=== PATIENT | female | born 1945 | race Caucasian/White ===

== ENCOUNTER 2022-12-11 17:20 | Observation (INO) | payer MEDICARE, SELFPAY ==
[2022-12-11 17:21] VITALS: BP 137/83; PULSE 87; RESP 17; TEMP 36.4; O2SAT 98; BMI 32.8
--- NOTE | 2022-12-11 17:34 | PC.NURSE ---
DR GARCIA AT BEDSIDE TO EVALUATE PT
[2022-12-11 17:35] VITALS: BMI 32.8
--- NOTE | 2022-12-11 17:48 | HMH.EDGENADL ---
Discharge Plan Disposition Chief Complaint: Weakness Prescriptions Prescriptions: No Action pramipexole [Mirapex] 1 mg Tablet 1 mg PO HS lisinopril-hydrochlorothiazide 20-12.5 mg Tablet 1 tab PO DAILY meloxicam 15 mg Tablet 15 mg PO DAILY docusate sodium 100 mg Capsule 100 mg PO DAILY gabapentin 300 mg Capsule 300 mg PO DAILY pravastatin 20 mg Tablet 20 mg PO HS omeprazole 20 mg Tablet,Delayed Release (Dr/Ec) 20 mg PO DAILY Referrals Follow up/Referrals: Placido Mercado [Primary Care Provider] - See instructions Clinical Impressions Clinical Impression: Anemia, VIRIDIANA (acute kidney injury), Weakness Discharge ED Provider: Chester Pettit General Adult HPI General Chief complaint: Weakness Stated complaint: blood count low Time Seen by Provider: 12/11/22 17:50 Mode of Arrival: Wheelchair Limitations: No Limitations Description of Symptoms (Recalled from ER Triage Doc. by RN): PT REPORTS WEAKNESS, FATIGUE, DECREASED APPETITE, SHORTNESS OF BREATH THAT HAS INCREASED OVER SEVERAL WEEKS. PT WITH EDEMA TO BLE, LEFT MORE THAN RIGHT. FAMILY REPORTS CONFUSION History of Present Illness HPI narrative: Patient is a 77-year-old female with past medical history of spinal fusion with resultant persistent anemia who presents emergency department for evaluation of weakness. Patient also has a history of dropfoot and at baseline is ambulatory with a cane. Over the last 3 weeks patient has had worsening diffuse weakness. Recent CBC shows hemoglobin around 8. Her baseline is normal. This is being investigated by her PCP without definitive etiology identified. Patient has decreased p.o. intake, adequate urine output, afebrile throughout the course, no other acute complaints at this time. She is accompanied by her family who is concerned about her ambulatory status and blood counts. Related Data Home Medications Medication Instructions Recorded Confirmed docusate sodium 100 mg capsule 100 mg PO DAILY CONSTIPATION 12/11/22 12/11/22 gabapentin 300 mg capsule 300 mg PO DAILY RLS 12/11/22 12/11/22 lisinopril 20 1 tab PO DAILY High blood pressure 12/11/22 12/11/22 mg-hydrochlorothiazide 12.5 mg tablet meloxicam 15 mg tablet 15 mg PO DAILY Pain 12/11/22 12/11/22 omeprazole 20 mg tablet,delayed 20 mg PO DAILY Reflux/Acid reflux 12/11/22 12/11/22 release pramipexole 1 mg tablet (Mirapex) 1 mg PO HS RLS 12/11/22 12/11/22 pravastatin 20 mg tablet 20 mg PO HS Cholesterol 12/11/22 12/11/22 Allergies Allergy/AdvReac Type Severity Reaction Status Date / Time No Known Allergies Allergy Verified 12/11/22 17:35 [facility] Disclaimer: The information contained in this section may have been updated after the patient was seen, as this information can be updated by other users. Social History Smoking Status: Never smoker alcohol intake: never current occupational status: unemployed Travel in the last 8 weeks: None ROS Obtained: Yes Systems reviewed as appropriate & no additional complaints except as documented Physical Exam General General appearance: alert and in no apparent distress Head Head exam: atraumatic and normocephalic Eye Eye exam: Present PERRL and EOMI ENT ENT exam: Present mucous membranes moist Neck Neck exam: Present normal inspection Chest Chest inspection: Present normal inspection and symmetric chest wall rise Respiratory Respiratory exam: Present normal lung sounds bilaterally; Absent respiratory distress Cardiovascular Cardiovascular exam: Present regular rate and normal rhythm Abdominal Exam Abdominal exam: Present soft; Absent tenderness Extremities Exam Extremities exam: Present normal inspection Neurological Exam Neurological exam: Present alert, oriented X3 and CN II-XII intact; Absent motor sensory deficit Psychiatric Psychiatric exam: Present normal affect Skin Skin exam: Present warm and dry Medical Decision Making Wayne Inquiry
[2022-12-11 18:01] LABS: Chloride 99 mmol/L (98-107); Potassium 4.4 mmoL/L (3.5-5.1); Sodium 132 mmol/L (136-145)
--- NOTE | 2022-12-11 18:02 | PC.NURSE ---
PT ASSISTED TO BR
[2022-12-11 18:04] LABS: Alanine Aminotransferase 31 U/L (12-78); Albumin Level 3.9 g/dl (3.5-5.0); Albumin/Globulin Ratio 1.6 (1.1-1.8); Alkaline Phosphatase 101 U/L (38-126); Anion Gap 11.4 mEq/L (5-15); Aspartate Amino Transferase 26 U/L (14-36); Bilirubin,Total 0.2 mg/dl (0.2-1.3); Blood Urea Nitrogen 40 mg/dl (7-17); Carbon Dioxide 26 mmol/L (22.0-30.0); Creatinine Clearance Estimated 36 mL/min (50-200); Estimated Glomerular Filt Rate 27 ml/min (>60); GFR (African American) 33 ML/MIN (>60); Globulin 2.4 g/dL (1.3-3.2); Magnesium 2.1 mg/dl (1.6-2.3); Total Protein,Serum 6.3 g/dl (6.3-8.2)
[2022-12-11 18:05] LABS: Calcium 9.7 mg/dl (8.4-10.2); Glucose 110 mg/dl (74-100)
[2022-12-11 18:08] LABS: Basophils # 0.1 K/mm3 (0-0.2); Basophils % 0.7 % (0.1-2.0); Eosinophils # 0.5 K/mm3 (0.0-0.4); Eosinophils % 7.4 % (0.1-12.0); Hematocrit 24.6 % (37.0-47.0); Hemoglobin 7.4 g/dL (12.2-16.2); Lymphocytes # 1.4 K/mm3 (0.7-4.5); Lymphocytes % 21.7 % (10-50); Mean Corpuscular HGB Conc 30.3 g/dL (31.8-35.4); Mean Platelet Volume 6.9 fl (7.4-10.4); Monocytes # 0.5 K/mm3 (0.1-1.0); Monocytes % 7.2 % (1.7-9.3); Neutrophils # 4.1 K/mm3 (1.8-7.8); Platelet Count 821 K/mm3 (142-424); Red Blood Count 3.23 M/mm3 (4.20-5.40); Red Cell Distribution Width 17.7 % (11.5-17.5); Reticulocyte % (Auto) 3.5 % (0.9-3.2); White Blood Count 6.5 K/mm3 (4.8-10.8)
[2022-12-11 18:13] LABS: Microscopic, Urine URINE MICROSCOPIC (MICROSCOPIC)
[2022-12-11 18:16] LABS: Appearance,Urine CLEAR (Clear); Bilirubin,Urine Negative (Negative); Blood, Urine Negative (Negative); Color,Urine YELLOW (Yellow); Glucose,Urine (UA) Negative (Negative); Ketones,Urine Negative (Negative); Leukocyte Esterase,Urine TRACE (Negative); Nitrate,Urine Negative (Negative); PH,Urine 5.5 (5.0-8.5); Protein,Urine Negative (Negative); Urobilinogen,Urine 0.2 EU/dl (0.2)
[2022-12-11 18:21] LABS: T4 (Thyroxine) 8.6 ug/dl (5.53-11.0)
--- NOTE | 2022-12-11 18:24 | PC.NURSE ---
DR GARCIA AT BEDSIDE TO REEVALUATE PT AND DISCUSS POC WITH PT AND FAMILY
[2022-12-11 18:31] VITALS: BP 128/83; PULSE 86; RESP 20; O2SAT 98
--- NOTE | 2022-12-11 18:31 | ECG_ITS ---
APPROVED REPORT Exam: Resting ECG HR:83 bpm ECG Measurements Heart Rate 83 AXES DE 119 P 9 QRSd 93 QRS 52 QT 362 T 24 QTc 402 Conclusion SINUS RHYTHM WITH SHORT DE INTERVAL BORDERLINE ECG UNCONFIRMED REPORT Electronically signed by : Mikhail Person MD 12/12/2022 20:23:05
[2022-12-11 18:37] LABS: Bacteria,Urine Trace /lpf
[2022-12-11 19:00] VITALS: BP 141/76; PULSE 84; RESP 17; O2SAT 99
[2022-12-11 19:29] VITALS: BP 135/89; PULSE 80; RESP 16; O2SAT 98
--- NOTE | 2022-12-11 19:29 | PC.NURSE ---
Admissions contacted at this for admission, Pt assigned to room 213.
[2022-12-11 19:36] LABS: Coronavirus 19, PCR Not Detected (NotDetected); Influenza A, PCR Not Detected (NotDetected); Influenza B, PCR Not Detected (NotDetected)
--- NOTE | 2022-12-11 19:46 | PC.NURSE ---
Report to ANN Garcia
[2022-12-11 19:56] VITALS: BP 139/76; PULSE 79; RESP 17; TEMP 36.9; O2SAT 97
[2022-12-11 20:00] VITALS: BP 138/81; PULSE 82; RESP 18; TEMP 36.4; O2SAT 97; BMI 32.6
[2022-12-11 20:36] LABS: Iron 36 ug/dL (37-170)
[2022-12-11 20:41] LABS: Total Iron Binding Capacity 456 ug/dL (265-497)
[2022-12-11 20:50] LABS: Ferritin 10.9 ng/ml (11.1-264)
--- NOTE | 2022-12-11 21:02 | EXP.HP ---
History of Present Illness *Admission Date: 12/11/22 *Reason for visit:: Generalized weakness *History of present illness: This is a pleasant 77-year-old female with past medical history of hypertension, hyperlipidemia who presents emergency department today with complaints of generalized weakness and frequent falls. She reports over the past month or so she has had worsening generalized weakness and lightheadedness. She has recently seen her primary care provider who noted microcytic anemia on lab work on 12/02/2022 With a hemoglobin of 8.1. At that time she was started on oral iron. She reports worsening lightheadedness over the past several days. She reports last fall was approximately 3 weeks ago but denies loss of consciousness at that time. She denies any fever, cough, chest pain, shortness of breath. She denies any hematochezia, hematemesis or melena or BRBPR. 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 She also reports recent back surgery in May and at that time it was noted that her blood counts were normal. Lab valuation notable for hemoglobin of 7.5. VIRIDIANA noted with a creatinine of 1.8. Given patient's continued generalized weakness, VIRIDIANA will admit for IV hydration. She is admitted to hospital service for further evaluation management. [facility] Disclaimer: The information contained in this section may have been updated after the patient was seen, as this information can be updated by other users. Medical History Cataract Hemorrhoid History of anemia History of back pain History of gastroesophageal reflux (GERD) Hyperlipidemia Hypertension Osteoarthritis Surgical History (Updated 12/11/22 @ 20:32 by Deborah Robles RN) History of colonoscopy Family History (Updated 12/11/22 @ 20:34 by Deborah Robles RN) Other Family history of diabetes mellitus type II Family history of hyperlipidemia Family history of hypertension Family history of leukemia Social History (Updated 12/11/22 @ 20:35 by Deborah Robles RN) Smoking Status: Never smoker alcohol intake: never substance use type: denies use current occupational status: unemployed Travel in the last 8 weeks: None household members: children housing: house lives independently: No marital status: well-balanced diet: daily or most days physical activity: none Review of Systems Review of Systems Review of systems:: pertinent systems reviewed and negative unless documented below Constitutional Constitutional: Reports as per HPI Eyes Eyes: Reports as per HPI ENT Ears, Nose, Mouth, and Throat: Reports as per HPI *Cardiovascular Cardiovascular: Reports as per HPI *Respiratory Respiratory: Reports as per HPI *Gastrointestinal Gastrointestinal: Reports as per HPI *Genitourinary Genitourinary: Reports as per HPI *Musculoskeletal Musculoskeletal: Reports as per HPI *Neurologic Neurologic: Reports as per HPI Meds Home Medications and Allergies Home Medications Medication Instructions Recorded Confirmed Type docusate sodium 100 mg capsule 100 mg PO DAILY CONSTIPATION 12/11/22 12/11/22 History gabapentin 300 mg capsule 300 mg PO BID Restless leg syndrome 12/11/22 12/12/22 History lisinopril 20 1 tab PO DAILY High blood pressure 12/11/22 12/11/22 History mg-hydrochlorothiazide 12.5 mg tablet meloxicam 15 mg tablet 15 mg PO DAILY Pain 12/11/22 12/11/22 History pramipexole 1 mg tablet (Mirapex) 1 mg PO HS RLS 12/11/22 12/11/22 History carbidopa 10 mg-levodopa 100 mg 1 tab PO HS Parkinson's 12/12/22 12/12/22 History tablet omeprazole 40 mg capsule,delayed 40 mg PO BID Acid reflux 12/12/22 12/12/22 History release pravastatin 40 mg tablet 40 mg PO HS Cholesterol 12/12/22 12/12/22 History terbinafine HCl 250 mg tablet 250 mg PO DAILY Infection 12/12/22 12/12/22 History New Prescriptions to Start Prescriptions:
[2022-12-11 21:22] LABS: Vitamin B12 > 1000 pg/mL (239-931)
[2022-12-12 04:00] VITALS: BP 130/68; PULSE 81; RESP 17; TEMP 36.8; O2SAT 98; BMI 33.3
--- NOTE | 2022-12-12 05:53 | PC.NURSE ---
pt rested well through the night. room air. receiving iv fluids. no complaints of pain. daughter @ bedside.
[2022-12-12 06:20] LABS: Basophils # 0.1 K/mm3 (0-0.2); Basophils % 1.1 % (0.1-2.0); Eosinophils # 0.5 K/mm3 (0.0-0.4); Eosinophils % 9.3 % (0.1-12.0); Hematocrit 23.6 % (37.0-47.0); Hemoglobin 7.3 g/dL (12.2-16.2); Lymphocytes # 1.4 K/mm3 (0.7-4.5); Lymphocytes % 25.3 % (10-50); Mean Corpuscular HGB Conc 30.9 g/dL (31.8-35.4); Mean Corpuscular Hemoglobin 23.1 pg (27.0-31.2); Mean Corpuscular Volume 74.8 fl (81-99); Mean Platelet Volume 7.1 fl (7.4-10.4); Monocytes # 0.4 K/mm3 (0.1-1.0); Monocytes % 6.5 % (1.7-9.3); Neutrophils # 3.1 K/mm3 (1.8-7.8); Neutrophils % 57.8 % (37.0-80.0); Platelet Count 812 K/mm3 (142-424); Red Blood Count 3.16 M/mm3 (4.20-5.40); Red Cell Distribution Width 17.7 % (11.5-17.5); White Blood Count 5.4 K/mm3 (4.8-10.8)
[2022-12-12 06:35] LABS: Chloride 103 mmol/L (98-107); Potassium 3.9 mmoL/L (3.5-5.1); Sodium 136 mmol/L (136-145)
[2022-12-12 06:38] LABS: Blood Urea Nitrogen 32 mg/dl (7-17); Creatinine Clearance Estimated 50 mL/min (50-200); Estimated Glomerular Filt Rate 40 ml/min (>60); GFR (African American) 48 ML/MIN (>60)
[2022-12-12 06:39] LABS: Anion Gap 9.9 mEq/L (5-15); Calcium 9.3 mg/dl (8.4-10.2); Carbon Dioxide 27 mmol/L (22.0-30.0); Glucose 95 mg/dl (74-100)
--- NOTE | 2022-12-12 07:39 | HMH.PHAINT1 ---
Pharmacy Intervention Comments: Reconciled patient's home medications using patient interview and pharmacy fill history.
[2022-12-12 08:00] VITALS: BP 107/64; PULSE 86; RESP 18; TEMP 36.9; O2SAT 94
--- NOTE | 2022-12-12 08:32 | EXP.PN ---
Subjective *Date: 12/12/22 *Time: 09:51 Interval history: Hgb is 7.3 this AM. Cr is decreasing 1.8 -> 1.3 No acute events overnight. She continues to feel weak and continues to have exertional dyspnea. No chest pain. Exam Data for Last 24 hours Vital signs and Labs for Last 24 Hours: Temp Pulse Resp BP Pulse Ox 98.4 F 86 18 107/64 L 94 L 12/12/22 08:00 12/12/22 08:00 12/12/22 08:00 12/12/22 08:00 12/12/22 08:00 Laboratory Results - last 24 hr 12/11/22 17:31: WBC 6.5, RBC 3.23 L, Hgb 7.4 L, Hct 24.6 L, MCV 76.0 L, MCH 23.0 L, MCHC 30.3 L, RDW 17.7 H, Plt Count 821 H, MPV 6.9 L, Neut % (Auto) 63.0, Lymph % (Auto) 21.7, [place] % (Auto) 7.2, Eos % (Auto) 7.4, Baso % (Auto) 0.7, Neut # (Auto) 4.1, Lymph # (Auto) 1.4, [place] # (Auto) 0.5, Eos # (Auto) 0.5 H, Baso # (Auto) 0.1, Retic Count (auto) 3.5 H 12/11/22 17:31: Sodium 132 L, Potassium 4.4, Chloride 99, Carbon Dioxide 26, Anion Gap 11.4, BUN 40 H, Creatinine 1.80 H, Estimated Creat Clear 36, Estimated GFR 27 L, Est GFR ( Amer) 33 L, Glucose 110 H, Calcium 9.7, Total Bilirubin 0.2, AST 26, ALT 31, Alkaline Phosphatase 101, Total Protein 6.3, Albumin 3.9, Globulin 2.4, Albumin/Globulin Ratio 1.6, Thyroxine (T4) 8.6 12/11/22 17:31: Magnesium 2.1 12/11/22 17:31: Iron 36 L, TIBC 456, Iron Saturation 7.04967 L, Ferritin 10.9 L, Vitamin B12 > 1000 H, Folate 11.50 12/11/22 18:10: Urine Color Yellow, Urine Appearance Clear, Urine pH 5.5, Ur Specific [place] 1.010, Urine Protein Negative, Urine Glucose (UA) Negative, Urine Ketones Negative, Urine Blood Negative, Urine Nitrate Negative, Urine Bilirubin Negative, Urine Urobilinogen 0.2, Ur Leukocyte Esterase Trace, Urine RBC None, Urine WBC 5-10, Ur Squamous Epith Cells 3-5, Urine Bacteria Trace 12/11/22 19:30: SARS-CoV-2 (PCR) Not detected, Influenza A Untype (PCR) Not detected, Influenza Type B (PCR) Not detected 12/12/22 05:57: WBC 5.4, RBC 3.16 L, Hgb 7.3 L, Hct 23.6 L, MCV 74.8 L, MCH 23.1 L, MCHC 30.9 L, RDW 17.7 H, Plt Count 812 H, MPV 7.1 L, Neut % (Auto) 57.8, Lymph % (Auto) 25.3, [place] % (Auto) 6.5, Eos % (Auto) 9.3, Baso % (Auto) 1.1, Neut # (Auto) 3.1, Lymph # (Auto) 1.4, [place] # (Auto) 0.4, Eos # (Auto) 0.5 H, Baso # (Auto) 0.1 12/12/22 05:57: Sodium 136, Potassium 3.9, Chloride 103, Carbon Dioxide 27, Anion Gap 9.9, BUN 32 H, Creatinine 1.30 H D, Estimated Creat Clear 50, Estimated GFR 40 L, Est GFR ( Amer) 48 L D, Glucose 95, Calcium 9.3 I & O for Last 24 hours: Intake & Output 12/09/22 12/10/22 12/11/22 12/12/22 23:59 23:59 23:59 23:59 Intake Total 1000 / 1500 740 / 740 Output Total 100 / 400 300 / 300 Balance 900 / 1100 440 / 440 Weight 83.546 kg 85.417 kg Constitutional Constitutional: no acute distress *Routine HEENT Exam Head: Present normocephalic Eye: Present EOMI and PERRL ENT: Present mucous membranes moist *Routine Neck Exam Neck: Present supple; Absent lymphadenopathy *Routine Respiratory Exam Respiratory: Present CTA bilaterally *Routine Cardiovascular Exam Cardiovascular: Present RRR *Routine Abdominal Exam Abdominal: Present soft and normoactive bowel sounds; Absent tenderness *Routine Extremities Exam Extremities: Absent cyanosis, clubbing or edema *Routine Skin Exam Skin: Present warm; Absent rash *Routine Neurological Exam Neurological: Present alert and oriented X3 Assessment and Plan *Assessment and plan (1) Acute blood loss anemia: Status: Acute Category: Medical Code(s): D62 - Acute posthemorrhagic anemia (2) Frequent falls: Status: Acute Category: Medical Code(s): R29.6 - Repeated falls (3) Microcytic anemia: Status: Acute Category: Medical Code(s): D50.9 - Iron deficiency anemia, unspecified (4) VIRIDIANA (acute kidney injury): Status: Acute Category: Medical Code(s): N17.9 - Acute kidney failure, unspecified (5) Weakness: Status: Acute Category: Medical Code(s): R53.
--- NOTE | 2022-12-12 08:50 | EXP.SURG.CON ---
History of Present Illness *Admission Date: 12/11/22 *Reason for visit:: Symptomatic anemia *History of present illness: Patient is a 77-year-old from [facility] whose primary care provider is Angelito Mercado. She has no prior visits to this facility. She presented to the emergency department yesterday evening with generalized weakness and frequent falls. She had apparently recently seen her primary care care provider and had findings of microcytic anemia noted on lab work on 12/02/2022 with a hemoglobin of 8.1. She was started on oral iron supplementation. Patient has had some progressive dizziness and lightheadedness over several days. She had a fall approximately 3 weeks ago. Denies any symptoms consistent with hematochezia, hematemesis, or melena. Apparently patient had back surgery in May 2022 and at that time had normal hemoglobin. However, she did undergo autotransfusion of packed red blood cells due to blood loss. Evaluation in the emergency department revealed hemoglobin of 7.5. Initial BUN and creatinine were 40 and 1.8. Surgical consultation was obtained for acute anemia . She has never had any history of ulcer problems. She does state that several weeks ago she had been taking ibuprofen for back and leg pain. She has had 2 or 3 colonoscopies in the past but the last one was about 11 years ago according to the patient. Patient had a regular diet this morning. [facility] Disclaimer: The information contained in this section may have been updated after the patient was seen, as this information can be updated by other users. Medical History Cataract Hemorrhoid History of anemia History of back pain History of gastroesophageal reflux (GERD) Hyperlipidemia Hypertension Osteoarthritis Surgical History (Updated 12/11/22 @ 20:32 by Deborah Robles RN) History of colonoscopy Family History (Updated 12/11/22 @ 20:34 by Deborah Robles RN) Family history of leukemia Family history of hypertension Family history of diabetes mellitus type II Family history of hyperlipidemia Social History (Updated 12/11/22 @ 20:35 by Deborah Robles, ANN) Smoking Status: Never smoker alcohol intake: never substance use type: denies use current occupational status: unemployed Travel in the last 8 weeks: None household members: children housing: house lives independently: No marital status: well-balanced diet: daily or most days physical activity: none Review of Systems *Neurologic Neurologic: Reports as per [facility] Meds Home Medications and Allergies Home Medications Medication Instructions Recorded Confirmed Type gabapentin 300 mg capsule 300 mg PO BID Restless leg syndrome 12/11/22 12/12/22 History lisinopril 20 1 tab PO DAILY High blood pressure 12/11/22 12/11/22 History mg-hydrochlorothiazide 12.5 mg tablet meloxicam 15 mg tablet 15 mg PO DAILY Pain 12/11/22 12/11/22 History pramipexole 1 mg tablet (Mirapex) 1 mg PO HS restless leg syndrome 12/11/22 12/11/22 History carbidopa 10 mg-levodopa 100 mg 1 tab PO HS Parkinson's 12/12/22 12/12/22 History tablet omeprazole 40 mg capsule,delayed 40 mg PO BID Acid reflux 12/12/22 12/12/22 History release pravastatin 40 mg tablet 40 mg PO HS Cholesterol 12/12/22 12/12/22 History New Prescriptions to Start Prescriptions: Allergies Allergy/AdvReac Type Severity Reaction Status Date / Time No Known Allergies Allergy Verified 12/11/22 17:35 Exam (Inpt) Vital signs and Labs for Last 24 Hours: Temp Pulse Resp BP Pulse Ox 98.4 F 86 18 107/64 L 94 L 12/12/22 08:00 12/12/22 08:00 12/12/22 08:00 12/12/22 08:00 12/12/22 08:00 Laboratory Results - last 24 hr 12/11/22 17:31: WBC 6.5, RBC 3.23 L, Hgb 7.4 L, Hct 24.6 L, MCV 76.0 L, MCH 23.0 L, MCHC 30.3 L, RDW 17.7 H, Plt Count 821 H, MPV 6.9 L, Neut % (Auto) 63.0, Lymph % (Auto) 21.7, [place]
[2022-12-12 10:58] VITALS: BMI 33.3
--- NOTE | 2022-12-12 12:35 | HMH.PTEV ---
Physical Therapy Evaluation Rehab PT IP Evaluation Start: 12/11/22 19:56 Freq: ONCE Status: Active Protocol: Document 12/12/22 12:17 DAMIÁNTIFFANY (Rec: 12/12/22 12:35 LIVIER [id number]) Subjective/History History History Pt is a pleasant 77 year old female with a PMH significant for HTN and HLD that presented to the ED on 12/11/2022 with reports of generalized weakness and frequent falls. Pt reported that over the past month, she has experienced lightheadedness and increasing weakness. Pt was started on oral iron by her PCP on 2022 due to microcytic anemia. While in ED, lab values significant for hemoglobin of 7.5 and creatinine of 1.8 indicating VIRIDIANA. Pt was admitted to hospital for further evaluation. Subjective Subjective Pt presents supine in bed with family at bedside, pleasant and agreeable to PT initial evaluation. Pt denies reports of pain at rest. Pt reports she lives at home with her son in a H with ramp to enter. Pt reports that she uses a cane for in home/daytime ambulation and a rollator at night and when outside the home. Pt states that her grandchildren will be coming to stay with her at the time of discharge. Rehab PT IP Eval Objective Appearance Patient Behavior Appropriate Patient Orientation Person,Place,Time,Situation Difficulty following instructions none Speech Pattern Clear,Appropriate Ambulation Patient Able to Ambulate Yes Ambulation Observation IP General Gait Pattern Observation No Deviations/Normal Ambulation Distance (feet) 30 Ambulation Assistive Device Rolling Walker Ambulation Ability Independent Balance Ability to Arise Able, w/o using arms Sitting Balance Steady, safe Standing Balance Steady, wide stance Dynamic Sitting Balance Ability Normal Dynamic Standing Balance Ability Normal Transfers Bed Transfer Abili
[2022-12-12 13:53] LABS: Occult Blood,Stool Positive (Negative)
--- NOTE | 2022-12-12 15:34 | PC.NURSE ---
A&OX4. TOLERATING RA WELL. UP INDEPENDENTLY IN ROOM WITH USE OF WALKER. FAMILY AT BEDSIDE. PT HAS HAD NO NEEDS OR C/O THUS FAR THIS SHIFT. OCCULT STOOL OBTAINED. PT TOLERATING DIET, WILL BE NPO AT MIDNIGHT FOR EDG IN AM. VSS.
[2022-12-12 16:00] VITALS: BP 157/77; PULSE 83; RESP 18; TEMP 36.9
[2022-12-12 20:00] VITALS: BP 121/71; PULSE 91; RESP 17; TEMP 36.8; O2SAT 99
[2022-12-13] VITALS (28 sets, daily range): BP systolic 91–154; BP diastolic 54–98; PULSE 72–96; RESP 16–19; TEMP 36.4–37; O2SAT 92–100; BMI 33.3
[2022-12-13 06:24] LABS: Basophils % 0.6 % (0.1-2.0); Eosinophils # 0.4 K/mm3 (0.0-0.4); Eosinophils % 7.7 % (0.1-12.0); Hematocrit 22.2 % (37.0-47.0); Lymphocytes # 1.3 K/mm3 (0.7-4.5); Lymphocytes % 25.3 % (10-50); Mean Corpuscular HGB Conc 30.3 g/dL (31.8-35.4); Mean Corpuscular Hemoglobin 23.1 pg (27.0-31.2); Mean Corpuscular Volume 76.2 fl (81-99); Mean Platelet Volume 7.4 fl (7.4-10.4); Monocytes # 0.3 K/mm3 (0.1-1.0); Monocytes % 5.6 % (1.7-9.3); Neutrophils # 3.2 K/mm3 (1.8-7.8); Neutrophils % 60.8 % (37.0-80.0); Platelet Count 704 K/mm3 (142-424); Red Blood Count 2.92 M/mm3 (4.20-5.40); Red Cell Distribution Width 18.2 % (11.5-17.5); White Blood Count 5.3 K/mm3 (4.8-10.8)
[2022-12-13 06:31] LABS: Hemoglobin 6.7 g/dL (12.2-16.2)
--- NOTE | 2022-12-13 06:32 | PC.NURSE ---
Critical HGB 6.7 called to Diana Fishman APRN, patient to receive one unit PRBCs, awaiting orders, and lab work.
[2022-12-13 06:36] LABS: Chloride 108 mmol/L (98-107)
[2022-12-13 06:37] LABS: Potassium 4.3 mmoL/L (3.5-5.1); Sodium 138 mmol/L (136-145)
[2022-12-13 06:39] LABS: Blood Urea Nitrogen 21 mg/dl (7-17); Creatinine Clearance Estimated 60 mL/min (50-200); Estimated Glomerular Filt Rate 48 ml/min (>60); GFR (African American) 59 ML/MIN (>60)
[2022-12-13 06:40] LABS: Anion Gap 9.3 mEq/L (5-15); Calcium 9.3 mg/dl (8.4-10.2); Carbon Dioxide 25 mmol/L (22.0-30.0); Glucose 86 mg/dl (74-100)
--- NOTE | 2022-12-13 07:24 | P.PN_ITS ---
Subjective Patient reports: no new complaints Exam Data for Last 24 hours Vital signs and Labs for Last 24 Hours: Temp Pulse Resp BP Pulse Ox 98.3 F 96 H 17 120/87 94 L 12/13/22 04:00 12/13/22 04:00 12/13/22 04:00 12/13/22 04:00 12/13/22 04:00 Laboratory Results - last 24 hr 12/12/22 12:20: Stool Occult Blood Positive A 12/13/22 05:47: WBC 5.3, RBC 2.92 L, Hgb 6.7 L*, Hct 22.2 L, MCV 76.2 L, MCH 23.1 L, MCHC 30.3 L, RDW 18.2 H, Plt Count 704 H, MPV 7.4, Neut % (Auto) 60.8, Lymph % (Auto) 25.3, [place] % (Auto) 5.6, Eos % (Auto) 7.7, Baso % (Auto) 0.6, Neut # (Auto) 3.2, Lymph # (Auto) 1.3, [place] # (Auto) 0.3, Eos # (Auto) 0.4, Baso # (Auto) 0.0 12/13/22 05:47: Sodium 138, Potassium 4.3, Chloride 108 H, Carbon Dioxide 25, Anion Gap 9.3, BUN 21 H D, Creatinine 1.10 H, Estimated Creat Clear 60, Estimated GFR 48 L, Est GFR ( Amer) 59 D, Glucose 86, Calcium 9.3 12/13/22 06:47: Crossmatch (AHG) See Detail I & O for Last 24 hours: Intake & Output 12/10/22 12/11/22 12/12/22 12/13/22 11:59 11:59 11:59 11:59 Intake Total 1740 / 1740 1080 / 1080 Output Total 700 / 700 1100 / 1100 Balance 1040 / 1040 -20 / -20 Weight 188 lb 4.749 oz 188 lb 4.749 oz *Routine Abdominal Exam Abdominal: Present soft Progress Note: A&P Assessment and plan (1) Acute blood loss anemia: Status: Acute Assessment and plan: Hemoglobin is 6.7. Plan for EGD today. Stool for Hemoccult positive. (2) Frequent falls: Status: Acute (3) Microcytic anemia: Status: Acute (4) VIRIDIANA (acute kidney injury): Status: Acute (5) Weakness: Status: Acute
--- NOTE | 2022-12-13 09:23 | EXP.ACUTE.PN ---
Subjective *Date: 12/13/22 *Time: 09:23 Interval history: Doing well. Plan for EGD today. Having some weakness from anemia Medical Exam Vital signs and Labs for Last 24 Hours: Vital Signs Temp Pulse Pulse Resp BP BP Pulse Ox 12/13/22 09:15 97.9 F 78 17 137/84 96 12/13/22 09:10 76 17 132/80 97 12/13/22 09:05 97.9 F 75 18 135/77 96 12/13/22 09:00 98.0 F 76 17 138/88 97 12/13/22 08:52 98.0 F 78 17 132/88 97 12/13/22 08:00 98 F 80 19 140/77 97 12/13/22 04:00 98.3 F 96 H 17 120/87 94 L 12/13/22 00:00 97.7 F 90 17 147/80 H 95 12/12/22 20:00 98.3 F 91 H 17 121/71 99 12/12/22 16:00 98.5 F 83 18 157/77 H Intake and Output 12/12/22 12/13/22 12/13/22 23:59 07:59 15:59 Intake Total 360 / 1820 0 / 0 Output Total 400 / 1200 700 / 700 Balance -40 / 620 -700 / -700 0 / -700 Intake: Intake, Oral Amount 360 / 1520 Intake (Blood Product) Amt 0 / 0 Red Blood Cells Unit 0 / 0 [id number] Output: Output, Urine Amount 400 / 1200 700 / 700 Other: Number of Unmeasured Voids 1 1 Weight 85.41 kg Patient Weight 12/13/22 23:59 Weight 85.41 kg Laboratory Results - last 24 hr 12/12/22 12:20: Stool Occult Blood Positive A 12/13/22 05:47: WBC 5.3, RBC 2.92 L, Hgb 6.7 L*, Hct 22.2 L, MCV 76.2 L, MCH 23.1 L, MCHC 30.3 L, RDW 18.2 H, Plt Count 704 H, MPV 7.4, Neut % (Auto) 60.8, Lymph % (Auto) 25.3, [place] % (Auto) 5.6, Eos % (Auto) 7.7, Baso % (Auto) 0.6, Neut # (Auto) 3.2, Lymph # (Auto) 1.3, [place] # (Auto) 0.3, Eos # (Auto) 0.4, Baso # (Auto) 0.0 12/13/22 05:47: Sodium 138, Potassium 4.3, Chloride 108 H, Carbon Dioxide 25, Anion Gap 9.3, BUN 21 H D, Creatinine 1.10 H, Estimated Creat Clear 60, Estimated GFR 48 L, Est GFR ( Amer) 59 D, Glucose 86, Calcium 9.3 12/13/22 05:47: Blood Type Confirm A Positive 12/13/22 06:47: Blood Type A Positive, Antibody Screen Negative, Crossmatch (AHG) See Detail I & O for Labs for Last 24 Hours: Intake & Output 12/10/22 12/11/22 12/12/22 12/13/22 23:59 23:59 23:59 23:59 Intake Total 1000 / 1500 1820 / 1820 0 / 0 Output Total 100 / 400 1000 / 1200 700 / 700 Balance 900 / 1100 820 / 620 -700 / -700 Weight 83.546 kg 85.41 kg 85.41 kg Constitutional: Present no acute distress Respiratory: Present normal respiratory effort Cardiac: Present Reg Rate and Rhythm GI: Present normal bowel sounds; Absent tenderness Extremities: Present normal inspection and full ROM Skin: Present intact; Absent erythema Neuro: Present Grossly Intact and moves all extremities Assessment and Plan *Assessment and plan (1) Acute blood loss anemia: Status: Acute Category: Medical Code(s): D62 - Acute posthemorrhagic anemia (2) Frequent falls: Status: Acute Category: Medical Code(s): R29.6 - Repeated falls (3) Microcytic anemia: Status: Acute Category: Medical Code(s): D50.9 - Iron deficiency anemia, unspecified (4) Anemia: Status: Acute Category: Medical Code(s): D64.9 - Anemia, unspecified (5) VIRIDIANA (acute kidney injury): Status: Acute Category: Medical Code(s): N17.9 - Acute kidney failure, unspecified (6) GIB (gastrointestinal bleeding): Status: Acute Category: Medical Code(s): K92.2 - Gastrointestinal hemorrhage, unspecified Plan Gladys Grajeda is a 77 year old female with a past medical history of hypertension, hyperlipidemia and GERD who presented with generalized weakness and frequent falls. She was admitted on 12/11 with VIRIDIANA (Cr was 1.8) and microcytic anemia (hgb was 7.5, 8.1 in 12/02/2022 and patient reports it was normal this past May). She received a 1 L fluid bolus in the ED followed by maintenance fluids. Patient noted to have melena positive stool occult. To medic anemia at 6.7 this morning. We will give 1 unit of blood transfusion. General surgery consul
[2022-12-13 11:13] LABS: Transferrin 365 mg/dL (192-364)
--- NOTE | 2022-12-13 11:51 | EXP.ANES.CKL ---
[facility] Disclaimer: The information contained in this section may have been updated after the patient was seen, as this information can be updated by other users. Medical History Cataract Hemorrhoid History of anemia History of back pain History of gastroesophageal reflux (GERD) Hyperlipidemia Hypertension Osteoarthritis Surgical History History of colonoscopy Family History Other Family history of diabetes mellitus type II Family history of hyperlipidemia Family history of hypertension Family history of leukemia Social History Smoking Status: Never smoker alcohol intake: never substance use type: denies use current occupational status: unemployed Travel in the last 8 weeks: None household members: children housing: house lives independently: No marital status: well-balanced diet: daily or most days physical activity: none [facility] Anesthesia Checklist Patient Identification Patient Identification: Arm Band Structural Data Admitted From: Inpatient Planned Operative Procedure/s: EGD Consent for Planned Operative Procedure(s) Verified: Yes NPO Status Verified Time NPO: 00:00 Chart Verification Results Verified: CBC Airway Assessment C-Spine Mobility Assessed: Yes TMJ Mobility Assessed: Yes Dentition: Partials Neurological Assessment Level of Consciousness: Awake Hx Seizures: No Numbness or tingling in extremities: No Anesthesia Plan Anesthesia Risk discussed: Yes Anesthesia Plan: Verified ASA Class: III (III E) Anesthesia Type: MAC
--- NOTE | 2022-12-13 12:24 | HMH.SCOPE ---
Procedure: Date: 12/13/22 Patient Date of :: 1945 Procedure Performed:: Esophagogastroduodenoscopy with biopsy Indications:: Patient is a 77-year-old from [facility] whose primary care provider is Angelito Mercado.? She has no prior visits to this facility.? She presented to the emergency department with generalized weakness and frequent falls.? She had apparently recently seen her primary care care provider and had findings of microcytic anemia noted on lab work on 12/02/2022 with a hemoglobin of 8.1.? She was started on oral iron supplementation.? Patient has had some progressive dizziness and lightheadedness over several days.? She had a fall approximately 3 weeks ago.? Denies any symptoms consistent with hematochezia, hematemesis, or melena.? Apparently patient had back surgery in May 2022 and at that time had normal hemoglobin.? However, she did undergo autotransfusion of packed red blood cells due to blood loss.? Evaluation in the emergency department revealed hemoglobin of 7.4.? Initial BUN and creatinine were 40 and 1.8.? Surgical consultation was obtained for acute anemia .? She has never had any history of ulcer problems.? She does state that several weeks ago she had been taking ibuprofen for back and leg pain.? She has had 2 or 3 colonoscopies in the past but the last one was about 11 years ago according to the patient.? She had been admitted for inpatient management. As stated above, initial hemoglobin was 7.4 upon evaluation in the emergency department. Following morning on 12/12/22 hemoglobin was 7.3. She was seen as a surgical consultation and plan was made for upper endoscopy. She did have Hemoccult positive stool. Hemoglobin this morning on 12/13/2022 was 6.7. She was transfused a single unit of packed red blood cells. Follow-up hemoglobin is pending. Performing Provider:: Devon Hinton MD Referring Provider:: Angelito Mercado MD Sedation:: MAC sedation Procedure:: Patient was taken to endoscopy procedure room. She was positioned in lateral decubitus position. Adequate intravenous sedation was achieved with anesthesia titration of propofol. Olympus endoscope was inserted via the oropharynx. Esophagus was cannulated. Endoscope was advanced. She had findings consistent with cricopharyngeal spasm. She had findings consistent with dysmotility of the esophagus. Gastroesophageal junction was encountered at 30 cm from the incisors. There were findings consistent with moderately large sliding hiatal hernia. There were findings consistent with shallow Rojas's erosions. Stomach was cannulated and insufflated. Retroflexion was performed. Visualization of the fundus and hiatal hernia was somewhat difficult with limited gastric expansion likely due to large hiatal hernia and inability to retain gas within the gastric lumen. The antrum appeared relatively unremarkable with only minimal linear gastropathy. Pylorus was traversed. Duodenal bulb and duodenal sweep were unremarkable. Endoscope was withdrawn into the gastric lumen and gastric antral mucosal biopsies obtained for LEXA test for H. pylori. Stomach was desufflated and the endoscope was withdrawn. Findings:: Cricopharyngeal spasm Esophageal dysmotility Gastroesophageal junction at 30 cm Findings of probable moderately large sliding hiatal hernia Nonbleeding shallow Rojas's erosions Difficult visualization of proximal stomach/fundus due to lack of gastric distention Mild antral linear gastropathy Recommendations:: Potential contribution for anemia from the Rojas's erosions from her hiatal hernia. Although these seem to rather shallow and relatively inconsequential. Recommend continuation proton pump inhibitors. May benefit from early outpatient colonoscopy. May need hematology oncology evaluation. Complications:: None immediately apparent Estimated blood obtained (mL): 1
[2022-12-13 13:22] LABS: Hematocrit 26.1 % (37.0-47.0)
--- NOTE | 2022-12-13 19:42 | PC.NURSE ---
A&OX4. TOLERATING RA WELL. HAS TOLERATED BLOOD AND ALL PROCEDURES TODAY. FAMILY REMAINS AT BEDSIDE. PT AMBULATING WITH WALKER IN ROOM. HAS HAD X1 DIARRHEA TODAY. TOLERATING DIET WELL. NO OTHER NEEDS NOTED AT THIS TIME, VSS.
[2022-12-14] VITALS: BP 130/75; PULSE 77; RESP 16; TEMP 36.6; O2SAT 95
[2022-12-14 04:00] VITALS: BP 133/83; PULSE 75; RESP 18; TEMP 36.6; O2SAT 96; BMI 32.8
[2022-12-14 08:00] VITALS: BP 140/81; PULSE 80; RESP 18; TEMP 36.1; O2SAT 98
[2022-12-14 10:55] LABS: Basophils % 0.5 % (0.1-2.0); Eosinophils # 0.4 K/mm3 (0.0-0.4); Eosinophils % 8.7 % (0.1-12.0); Hematocrit 26.3 % (37.0-47.0); Hemoglobin 8.1 g/dL (12.2-16.2); Lymphocytes # 1.1 K/mm3 (0.7-4.5); Lymphocytes % 22.6 % (10-50); Mean Corpuscular HGB Conc 30.9 g/dL (31.8-35.4); Mean Corpuscular Hemoglobin 24.4 pg (27.0-31.2); Mean Platelet Volume 7.2 fl (7.4-10.4); Monocytes # 0.2 K/mm3 (0.1-1.0); Monocytes % 4.7 % (1.7-9.3); Neutrophils # 3.1 K/mm3 (1.8-7.8); Neutrophils % 63.5 % (37.0-80.0); Platelet Count 654 K/mm3 (142-424); Red Blood Count 3.33 M/mm3 (4.20-5.40); Red Cell Distribution Width 18.6 % (11.5-17.5); White Blood Count 4.9 K/mm3 (4.8-10.8)
[2022-12-14 11:24] LABS: Chloride 106 mmol/L (98-107)
[2022-12-14 11:25] LABS: Potassium 4.5 mmoL/L (3.5-5.1); Sodium 137 mmol/L (136-145)
[2022-12-14 11:27] LABS: Alanine Aminotransferase 19 U/L (12-78); Aspartate Amino Transferase 18 U/L (14-36); Blood Urea Nitrogen 16 mg/dl (7-17); Creatinine Clearance Estimated 64 mL/min (50-200); Estimated Glomerular Filt Rate 61 ml/min (>60); GFR (African American) 74 ML/MIN (>60)
[2022-12-14 11:28] LABS: Albumin Level 3.3 g/dl (3.5-5.0); Albumin/Globulin Ratio 1.4 (1.1-1.8); Alkaline Phosphatase 93 U/L (38-126); Anion Gap 10.5 mEq/L (5-15); Bilirubin,Total 0.3 mg/dl (0.2-1.3); Calcium 9.5 mg/dl (8.4-10.2); Carbon Dioxide 25 mmol/L (22.0-30.0); Globulin 2.3 g/dL (1.3-3.2); Glucose 92 mg/dl (74-100); Phosphorous 3.5 mg/dl (2.5-4.5); Total Protein,Serum 5.6 g/dl (6.3-8.2)
[2022-12-14 11:31] LABS: POC Glucose,Bedside 54 (70-110)
--- NOTE | 2022-12-14 12:05 | EXP.DC.SUM ---
General Admission date:: 12/11/22 Discharge date: 12/14/22 HPI HPI HPI: Patient is a 77-year-old from [facility] whose primary care provider is Angelito Mercado. She has no prior visits to this facility. She presented to the emergency department yesterday evening with generalized weakness and frequent falls. She had apparently recently seen her primary care care provider and had findings of microcytic anemia noted on lab work on 12/02/2022 with a hemoglobin of 8.1. She was started on oral iron supplementation. Patient has had some progressive dizziness and lightheadedness over several days. She had a fall approximately 3 weeks ago. Denies any symptoms consistent with hematochezia, hematemesis, or melena. Apparently patient had back surgery in May 2022 and at that time had normal hemoglobin. However, she did undergo autotransfusion of packed red blood cells due to blood loss. Evaluation in the emergency department revealed hemoglobin of 7.5. Initial BUN and creatinine were 40 and 1.8. Surgical consultation was obtained for acute anemia . She has never had any history of ulcer problems. She does state that several weeks ago she had been taking ibuprofen for back and leg pain. She has had 2 or 3 colonoscopies in the past but the last one was about 11 years ago according to the patient. Patient had a regular diet this morning. Hospital Course Hospital Course Hospital Course: Patient was admitted for acute anemia and melena with positive stool occult. Patient had 1 hemoglobin less than 7 required 1 packed red blood cell transfusion. General surgery was consulted for upper endoscopy. EGD did not demonstrate any obvious source of upper GI bleed, there were Rojas lesions that were very superficial. Monitoring of hemoglobin showed improvement to 8.1 following the transfusion and hemoglobin stayed stable. Renal function also improved. Patient feels symptomatically better. Discussed outpatient colonoscopy and hemoglobin monitoring. If colonoscopy and EGD are negative, can consider pill endoscopy for evaluation of GI bleed of undetermined origin. Recommend close follow-up with primary care physician for monitoring of hemoglobin Will prescribe p.o. iron q. OD. She should also be referred for hematology oncology for severe microcytic anemia. I suspect she will likely need IV iron transfusions. Exam Data for Last 24 hours Vital signs and Labs for Last 24 Hours: Temp Pulse Resp BP Pulse Ox 96.9 F L 80 18 140/81 98 12/14/22 08:00 12/14/22 08:00 12/14/22 08:00 12/14/22 08:00 12/14/22 08:00 Laboratory Results - last 24 hr 12/13/22 06:47: Crossmatch (AHG) See Detail 12/13/22 13:05: Hgb 8.0 L D, Hct 26.1 L 12/14/22 08:11: POC Glucose 54 L 12/14/22 10:41: WBC 4.9, RBC 3.33 L, Hgb 8.1 L, Hct 26.3 L, MCV 79.0 L, MCH 24.4 L, MCHC 30.9 L, RDW 18.6 H, Plt Count 654 H, MPV 7.2 L, Neut % (Auto) 63.5, Lymph % (Auto) 22.6, Bureau % (Auto) 4.7, Eos % (Auto) 8.7, Baso % (Auto) 0.5, Neut # (Auto) 3.1, Lymph # (Auto) 1.1, Bureau # (Auto) 0.2, Eos # (Auto) 0.4, Baso # (Auto) 0.0 12/14/22 10:41: Sodium 137, Potassium 4.5, Chloride 106, Carbon Dioxide 25, Anion Gap 10.5, BUN 16, Creatinine 0.90, Estimated Creat Clear 64, Estimated GFR 61, Est GFR ( Amer) 74 D, Glucose 92, Calcium 9.5, Phosphorus 3.5, Magnesium 2.0, Total Bilirubin 0.3, AST 18 D, ALT 19 D, Alkaline Phosphatase 93, Total Protein 5.6 L, Albumin 3.3 L, Globulin 2.3, Albumin/Globulin Ratio 1.4 I & O for Last 24 hours: Intake & Output 12/11/22 12/12/22 12/13/22 12/14/22 23:59 23:59 23:59 23:59 Intake Total 1000 / 1500 1820 / 1820 240 / 360 360 / 360 Output Total 100 / 400 1000 / 1200 700 / 700 0 / 0 Balance 900 / 1100 820 / 620 -460 / -340 360 / 360 Weight 83.546 kg 85.41 kg 85.41 kg 84.028 kg Constitutional Constitutional: no acute distress *Routine HEENT Exam Head: Present normocephalic Eye: Present EOMI and PERRL ENT: Present mucous membranes moist *Routi
--- NOTE | 2022-12-14 12:27 | HMH.PHAINT1 ---
Pharmacy Intervention Comments: Counseled patient and family on new medication to START and medication to HOLD until 12/16/22. Patient and family expressed understanding of new medication indication, dose, route, frequency, and potential side effects.
--- NOTE | 2022-12-15 15:22 | CARE MANAGER ---
Spoke with patient regarding recent discharge. Patient states that she is feeling better and that she attended a f/u appt today. No complaints or concerns voiced at time of call.
== END 2022-12-14 13:42 | disposition home or self-care (01) ==
LOC: ER 18:03 → 2ND 19:34
PROVIDERS: Nurse Practitioner Acute Care; Student in an Organized Health Care Education/Training Program; Surgery; Admitting Provider Internal Medicine; Emergency Provider Emergency Medicine; PCP Family Medicine; Visit Provider Internal Medicine
PROC: 0DJ08ZZ Inspection of Upper Intestinal Tract, Via Natural or Artificial Opening Endoscopic (ICD-10-PCS; CPT 43235; principal; 2022-12-13 12:00)
DX: N17.9 Acute kidney failure, unspecified (principal); R29.6 Repeated falls; D62 Acute posthemorrhagic anemia; Z79.899 Other long term (current) drug therapy; Z20.822 Contact with and (suspected) exposure to COVID-19; D50.9 Iron deficiency anemia, unspecified
CPT/HCPCS: 43239; G0378; 36415; 80048; 80053; 81001; 82272; 82607; 82728; 82746; 82962; 83540; 83550; 83735; 84100; 84436; 84466; 85014; 85018; 85025; 85044; 86850; 88305; 93005; 97162; 99285; C9803; G0328; P9016; U0003; U0005

== ENCOUNTER 2022-12-21 11:24 | Emergency (ER) | payer MEDICARE, SELFPAY ==
[2022-12-21 11:47] VITALS: BP 122/78; PULSE 91; RESP 17; TEMP 36.6; O2SAT 96; BMI 76.6
[2022-12-21 11:52] LABS: Basophils # 0.1 K/mm3 (0-0.2); Basophils % 1.6 % (0.1-2.0); Eosinophils # 0.3 K/mm3 (0.0-0.4); Eosinophils % 7.5 % (0.1-12.0); Lymphocytes # 1.3 K/mm3 (0.7-4.5); Lymphocytes % 31.6 % (10-50); Mean Corpuscular HGB Conc 30.4 g/dL (31.8-35.4); Mean Corpuscular Hemoglobin 23.7 pg (27.0-31.2); Mean Corpuscular Volume 77.8 fl (81-99); Mean Platelet Volume 6.8 fl (7.4-10.4); Monocytes # 0.2 K/mm3 (0.1-1.0); Monocytes % 5.7 % (1.7-9.3); Neutrophils # 2.2 K/mm3 (1.8-7.8); Neutrophils % 53.6 % (37.0-80.0); Platelet Count 441 K/mm3 (142-424); Red Blood Count 4.24 M/mm3 (4.20-5.40); Red Cell Distribution Width 19.1 % (11.5-17.5)
[2022-12-21 11:56] LABS: Chloride 102 mmol/L (98-107); Potassium 4.2 mmoL/L (3.5-5.1); Sodium 136 mmol/L (136-145)
[2022-12-21 11:59] LABS: Anion Gap 11.2 mEq/L (5-15); Blood Urea Nitrogen 19 mg/dl (7-17); Carbon Dioxide 27 mmol/L (22.0-30.0); Creatinine Clearance Estimated 35 mL/min (50-200); Estimated Glomerular Filt Rate 48 ml/min (>60); GFR (African American) 59 ML/MIN (>60)
[2022-12-21 12:00] LABS: Calcium 9.7 mg/dl (8.4-10.2); Glucose 88 mg/dl (74-100)
[2022-12-21 12:36] VITALS: BP 119/73; PULSE 69; RESP 17; TEMP 36.7; O2SAT 98
--- NOTE | 2022-12-21 19:36 | HMH.EDGENADL ---
Discharge Plan Disposition Patient Disposition: Home, Self-Care Prescriptions Prescriptions: No Action pramipexole [Mirapex] 1 mg Tablet 1 mg PO HS lisinopril-hydrochlorothiazide 20-12.5 mg Tablet 1 tab PO DAILY Hold Instructions: Resume on 12/16/22. meloxicam 15 mg Tablet 15 mg PO DAILY gabapentin 300 mg Capsule 300 mg PO BID pravastatin 40 mg tablet 40 mg PO HS omeprazole 40 mg capsule,delayed release(DR/EC) 40 mg PO BID carbidopa-levodopa 10-100 mg tablet 1 tab PO HS Label Comments: TAKE 1 TABLET BY MOUTH EVERY DAY AT BEDTIME ferrous sulfate [Iron (ferrous sulfate)] 325 mg (65 mg iron) tablet 325 mg PO .qod Qty: 30 0RF Rx Instructions: Take 1 tab every other day Clinical Impressions Clinical Impression: Abnormal laboratory test Discharge ED Provider: Neri Saha General Adult HPI General Chief complaint: Recheck/Abnormal Lab/Rx Stated complaint: Phys ref, low blood count Time Seen by Provider: 12/21/22 11:26 Mode of Arrival: Ambulatory Source of Information: Patient and Relative Limitations: No Limitations Description of Symptoms (Recalled from ER Triage Doc. by RN): Pt. arrived to ED to have her H&H checked and possible blood transfusion. Pt. was admtted last week for anemia and a GI bleed. She is scheduled for a egd and colonoscopy tomorrow in [place] with Dr. Burkett. She had her Hemoglobin checked last week at her PCP, Dr. Mercado, after she was discharged and she states it was 7.1. She states her PCP sent her here to see if she will need to be transfused before her procedure tomorrow. History of Present Illness HPI narrative: This is a 77-year-old female presenting for asymptomatic anemia. She was told that she is scheduled for colonoscopy, was told to come to the ER for blood draw in case she needs blood prior to colonoscopy. Related Data Home Medications Medication Instructions Recorded Confirmed gabapentin 300 mg capsule 300 mg PO BID Restless leg syndrome 12/11/22 12/12/22 lisinopril 20 1 tab PO DAILY High blood pressure 12/11/22 12/11/22 mg-hydrochlorothiazide 12.5 mg tablet meloxicam 15 mg tablet 15 mg PO DAILY Pain 12/11/22 12/11/22 pramipexole 1 mg tablet (Mirapex) 1 mg PO HS restless leg syndrome 12/11/22 12/11/22 carbidopa 10 mg-levodopa 100 mg 1 tab PO HS Parkinson's 12/12/22 12/12/22 tablet omeprazole 40 mg capsule,delayed 40 mg PO BID Acid reflux 12/12/22 12/12/22 release pravastatin 40 mg tablet 40 mg PO HS Cholesterol 12/12/22 12/12/22 Previous Rx's Medication Instructions Recorded ferrous sulfate 325 mg (65 mg 325 mg PO .qod #30 tabs 12/14/22 iron) tablet (Iron (ferrous sulfate)) Allergies Allergy/AdvReac Type Severity Reaction Status Date / Time No Known Allergies Allergy Verified 12/11/22 17:35 [facility] Disclaimer: The information contained in this section may have been updated after the patient was seen, as this information can be updated by other users. Medical History Cataract Hemorrhoid History of anemia History of back pain History of gastroesophageal reflux (GERD) Hyperlipidemia Hypertension Osteoarthritis Surgical History History of colonoscopy Family History Other Family history of diabetes mellitus type II Family history of hyperlipidemia Family history of hypertension Family history of leukemia Social History Smoking Status: Never smoker alcohol intake: never substance use type: denies use current occupational status: unemployed Travel in the last 8 weeks: None household members: children housing: house lives independently: No marital status: well-balanced diet: daily or most days physical activity: none
== END 2022-12-21 12:37 | disposition home or self-care (01) ==
LOC: ER 11:36
PROVIDERS: Emergency Provider Emergency Medicine; PCP Family Medicine
DX: D64.9 Anemia, unspecified (principal)
CPT/HCPCS: 80048; 85025; 99283

== ENCOUNTER → 2023-01-24 08:51 | Outpatient (CLI) | payer MEDICARE, SELFPAY ==
[2023-01-24 11:38] LABS: Basophils % 0.8 % (0.1-2.0); Eosinophils # 0.3 K/mm3 (0.0-0.4); Eosinophils % 6.1 % (0.1-12.0); Hematocrit 33.1 % (37.0-47.0); Hemoglobin 10.3 g/dL (12.2-16.2); Lymphocytes # 1.1 K/mm3 (0.7-4.5); Lymphocytes % 25.1 % (10-50); Mean Corpuscular HGB Conc 31.1 g/dL (31.8-35.4); Mean Corpuscular Hemoglobin 24.9 pg (27.0-31.2); Mean Corpuscular Volume 80.1 fl (81-99); Mean Platelet Volume 7.6 fl (7.4-10.4); Monocytes # 0.4 K/mm3 (0.1-1.0); Monocytes % 7.9 % (1.7-9.3); Neutrophils # 2.7 K/mm3 (1.8-7.8); Neutrophils % 60.1 % (37.0-80.0); Platelet Count 292 K/mm3 (142-424); Red Blood Count 4.13 M/mm3 (4.20-5.40); White Blood Count 4.5 K/mm3 (4.8-10.8)
[2023-01-24 12:35] LABS: Iron 50 ug/dL (37-170)
[2023-01-24 12:44] LABS: Total Iron Binding Capacity 399 ug/dL (265-497)
[2023-01-24 13:12] LABS: Ferritin 15.9 ng/ml (11.1-264)
== END ==
PROVIDERS: PCP Family Medicine; Visit Provider Internal Medicine Medical Oncology
DX: D50.9 Iron deficiency anemia, unspecified (principal)
CPT/HCPCS: 36415; 82728; 83540; 83550; 85025

== ENCOUNTER 2023-02-07 09:21 | Outpatient (CLI) | payer MEDICARE, SELFPAY ==
[2023-02-07 09:37] VITALS: BP 107/75; PULSE 79; RESP 18; TEMP 36.7; O2SAT 98
[2023-02-07 10:20] VITALS: BP 126/72; PULSE 69; RESP 18; O2SAT 98
== END 2023-02-07 10:20 | disposition home or self-care (01) ==
LOC: INF 09:22
PROVIDERS: Visit Provider Internal Medicine Medical Oncology
DX: D50.9 Iron deficiency anemia, unspecified (principal)
CPT/HCPCS: 96365; J1756

== ENCOUNTER 2023-02-13 08:42 | Outpatient (CLI) | payer MEDICARE, SELFPAY ==
[2023-02-13 09:10] VITALS: BP 112/65; PULSE 72; RESP 18; O2SAT 98
[2023-02-13 09:45] VITALS: BP 121/70; PULSE 72; RESP 18; O2SAT 98
== END 2023-02-13 09:50 | disposition home or self-care (01) ==
LOC: INF 08:43
PROVIDERS: PCP Family Medicine; Visit Provider Internal Medicine Medical Oncology
DX: D50.9 Iron deficiency anemia, unspecified (principal)
CPT/HCPCS: 96365; J1756

== ENCOUNTER 2023-02-21 09:05 | Outpatient (CLI) | payer MEDICARE, SELFPAY ==
[2023-02-21 09:44] VITALS: BP 121/79; PULSE 96; RESP 18; TEMP 36.4; O2SAT 97
[2023-02-21 10:25] VITALS: BP 117/84; PULSE 70; RESP 18; O2SAT 97
--- NOTE | 2023-02-21 10:31 | XR_ITS ---
FINAL REPORT CLINICAL HISTORY: PAIN FROM FALL, INJURY TO PINKY SIDE OF HAND FINDINGS: 3 views of the right hand were obtained. There is no acute fracture or dislocation. There are moderate hypertrophic changes of osteoarthritis particularly evident at the 2nd MCP joint and the 3rd, 4th, and 5th distal interphalangeal joints. There is no soft tissue abnormality. IMPRESSION: No acute process. Reviewed, Interpreted and Dictated by Zac Dhaliwal MD Transcribed by Sivakumar Giles Authenticated and [facility] [place] [place]
--- NOTE | 2023-02-21 10:32 | XR_ITS ---
FINAL REPORT CLINICAL HISTORY: PAIN FROM FALL, PINKY SIDE OF HAND FINDINGS: 3 views of the right wrist were obtained. There is no acute fracture or dislocation. The joint spaces are intact. There is no soft tissue abnormality. IMPRESSION: No acute abnormality. Reviewed, Interpreted and Dictated by Zac Dhaliwal MD Transcribed by Sivakumar Giles Authenticated and [facility]
== END 2023-02-21 10:25 | disposition home or self-care (01) ==
PROVIDERS: PCP Family Medicine; Visit Provider Internal Medicine Medical Oncology
DX: D50.9 Iron deficiency anemia, unspecified (principal); M79.641 Pain in right hand; M25.531 Pain in right wrist
CPT/HCPCS: 73110; 73130; 96365; J1756

== ENCOUNTER 2023-02-28 09:01 | Outpatient (CLI) | payer MEDICARE, SELFPAY ==
[2023-02-28 09:21] VITALS: BP 107/77; PULSE 77; RESP 18; TEMP 36.6; O2SAT 99
[2023-02-28 10:11] VITALS: BP 116/75; PULSE 75; RESP 18; O2SAT 99
== END 2023-02-28 10:15 | disposition home or self-care (01) ==
LOC: INF 09:02
PROVIDERS: PCP Family Medicine; Visit Provider Internal Medicine Medical Oncology
DX: D50.9 Iron deficiency anemia, unspecified (principal)
CPT/HCPCS: 96365; J1756

== ENCOUNTER 2023-03-06 08:55 | Outpatient (CLI) | payer MEDICARE, SELFPAY ==
[2023-03-06 09:17] VITALS: BP 127/81; PULSE 79; RESP 18; TEMP 36.6; O2SAT 98
[2023-03-06 10:00] VITALS: BP 107/68; PULSE 67; RESP 18; O2SAT 98
== END 2023-03-06 10:00 | disposition home or self-care (01) ==
LOC: INF 08:57
PROVIDERS: PCP Family Medicine; Visit Provider Internal Medicine Medical Oncology
DX: D50.9 Iron deficiency anemia, unspecified (principal)
CPT/HCPCS: 96365; J1756

== ENCOUNTER → 2023-04-17 15:21 | Outpatient (CLI) | payer MEDICARE, SELFPAY ==
[2023-04-17 16:13] LABS: Iron 69 ug/dL (37-170)
[2023-04-17 16:22] LABS: Total Iron Binding Capacity 282 ug/dL (265-497)
[2023-04-17 16:33] LABS: Basophils % 0.4 % (0.1-2.0); Eosinophils # 0.2 K/mm3 (0.0-0.4); Eosinophils % 3.8 % (0.1-12.0); Hematocrit 43.4 % (37.0-47.0); Hemoglobin 13.3 g/dL (12.2-16.2); Lymphocytes # 1.2 K/mm3 (0.7-4.5); Lymphocytes % 22.1 % (10-50); Mean Corpuscular HGB Conc 30.8 g/dL (31.8-35.4); Mean Corpuscular Hemoglobin 28.5 pg (27.0-31.2); Mean Corpuscular Volume 92.7 fl (81-99); Mean Platelet Volume 7.3 fl (7.4-10.4); Monocytes # 0.3 K/mm3 (0.1-1.0); Monocytes % 6.4 % (1.7-9.3); Neutrophils # 3.5 K/mm3 (1.8-7.8); Neutrophils % 67.2 % (37.0-80.0); Platelet Count 284 K/mm3 (142-424); Red Blood Count 4.68 M/mm3 (4.20-5.40); Red Cell Distribution Width 18.6 % (11.5-17.5); White Blood Count 5.3 K/mm3 (4.8-10.8)
[2023-04-17 16:49] LABS: Ferritin 105 ng/ml (11.1-264)
== END ==
PROVIDERS: PCP Family Medicine; Visit Provider Internal Medicine Medical Oncology
DX: D50.9 Iron deficiency anemia, unspecified (principal)
CPT/HCPCS: 36415; 82728; 83540; 83550; 85025

== ENCOUNTER 2023-10-13 17:02 | Emergency (ER) | payer MEDICARE, SELFPAY ==
[2023-10-13] VITALS (13 sets, daily range): BP systolic 55–130; BP diastolic 36–99; PULSE 87–89; RESP 15–20; TEMP 35.1–36.7; O2SAT 90–97; BMI 31.8
--- NOTE | 2023-10-13 17:05 | ECG_ITS ---
APPROVED REPORT Exam: Resting ECG HR:92 bpm ECG Measurements Heart Rate 92 AXES LA 141 P 49 QRSd 102 QRS 75 QT 368 T 19 QTc 417 Conclusion SINUS RHYTHM NORMAL ECG INTERPRETATION BASED ON A DEFAULT AGE OF 40 YEARS UNCONFIRMED REPORT Electronically signed by : Mikhail Person MD 10/14/2023 06:29:34
--- NOTE | 2023-10-13 17:11 | CT_ITS ---
PROCEDURE INFORMATION: Exam: CTA Abdomen and Pelvis With Contrast Exam date and time: 10/13/2023 5:26 PM Age: 77 years old Clinical indication: Other: AMS, syncope TECHNIQUE: Imaging protocol: Computed tomographic angiography of the abdomen and pelvis with contrast. Exam focused on the arteries. 3D rendering (Not supervised by radiologist): MIP and/or 3D reconstructed images were created by the technologist. Radiation optimization: All CT scans at this facility use at least one of these dose optimization techniques: automated exposure control; mA and/or kV adjustment per patient size (includes targeted exams where dose is matched to clinical indication); or iterative reconstruction. Contrast material: ISOVUE; Contrast volume: 100 ml; Contrast route: INTRAVENOUS (IV); COMPARISON: CT ANGIO CHEST 10/13/2023 5:26 PM FINDINGS: Diaphragm: There is a moderate hiatal hernia. Aorta: There is atherosclerotic disease of the visualized aorta and its major branch vessels. Celiac trunk and mesenteric arteries: No occlusion or significant stenosis. Renal arteries: No occlusion or significant stenosis. Right iliac arteries: No occlusion or significant stenosis. Left iliac arteries: No occlusion or significant stenosis. Liver: No mass. Gallbladder and bile ducts: Unremarkable. No calcified stones. No ductal dilation. Pancreas: There is a low-density lesion in the posterior mid pancreatic body/tail (image 102 series 11) which is favored to reflect invaginating fat. Spleen: There are multiple calcifications in the spleen most likely reflects small granulomas. Adrenal glands: Unremarkable. No mass. Kidneys and ureters: Unremarkable. No solid mass. No hydronephrosis. Stomach and bowel: Mild fluid distention of small-bowel loops. There is moderate fluid distension of the colon without obstruction, findings could reflect enterocolitis. There is a small volume of perienteric fluid as well as wall thickening of the left maximino abdominal small bowel loops. Appendix: No evidence of appendicitis. Intraperitoneal space: Unremarkable. No free air. No significant fluid collection. Lymph nodes: Unremarkable. No enlarged lymph nodes. Urinary bladder: Unremarkable. No mass. Reproductive: Unremarkable as visualized. Bones/joints: There is surgical hardware within the lumbar spine. There is diffuse degenerative disease of the visualized osseous structures. Soft tissues: Unremarkable. Other findings: Please see the dedicated interpretation of the thorax for findings in that region. IMPRESSION: 1. Wall thickening of left maximino abdominal small bowel loops with perienteric fluid and fluid distension of the colon could reflect enterocolitis without point of obstruction identified the. 2. Please see the dedicated interpretation of the thorax for findings in that region.
--- NOTE | 2023-10-13 17:11 | CT_ITS ---
PROCEDURE INFORMATION: Exam: CTA Head With Contrast, Arteriography Exam date and time: 10/13/2023 5:23 PM Age: 77 years old Clinical indication: Syncope and collapse; Additional info: AMS, syncope TECHNIQUE: Imaging protocol: Computed tomographic angiography of the head with contrast. Exam focused on the arteries. 3D rendering (Not supervised by radiologist): MIP and/or 3D reconstructed images were created by the technologist. Radiation optimization: All CT scans at this facility use at least one of these dose optimization techniques: automated exposure control; mA and/or kV adjustment per patient size (includes targeted exams where dose is matched to clinical indication); or iterative reconstruction. Contrast material: ISOVUE; Contrast volume: 100 ml; Contrast route: INTRAVENOUS (IV); COMPARISON: 1. CT HEAD/BRAIN WO CON 10/13/2023 5:[address] ANGIO NECK 10/13/2023 5:23 PM FINDINGS: ANTERIOR CIRCULATION: Right internal carotid artery: Intracranial segment is patent with no significant stenosis. No aneurysm. Right middle cerebral artery: No occlusion or significant stenosis. No aneurysm. Right anterior cerebral artery: No occlusion or significant stenosis. No aneurysm. Left internal carotid artery: Intracranial segment is patent with no significant stenosis. No aneurysm. Left middle cerebral artery: No occlusion or significant stenosis. No aneurysm. Left anterior cerebral artery: No occlusion or significant stenosis. No aneurysm. POSTERIOR CIRCULATION: Right vertebral artery: No occlusion or significant stenosis. No aneurysm. Left vertebral artery: No occlusion or significant stenosis. No aneurysm. Basilar artery: No occlusion or significant stenosis. No aneurysm. Right posterior cerebral artery: No occlusion or significant stenosis. No aneurysm. Left posterior cerebral artery: No occlusion or significant stenosis. No aneurysm. Brain: No definite mass, mass effect, or midline shift. Cerebral ventricles: No ventriculomegaly. Bones/joints: Unremarkable. No acute fracture. Soft tissues: Unremarkable. Other findings: Mildly patulous esophagus. Somewhat diminutive basilar system and posterior circulation. IMPRESSION: No large vessel stenosis or occlusion.
--- NOTE | 2023-10-13 17:11 | CT_ITS ---
PROCEDURE INFORMATION: Exam: CTA Neck With Contrast Exam date and time: 10/13/2023 5:23 PM Age: 77 years old Clinical indication: Syncope and collapse; Additional info: AMS, syncope TECHNIQUE: Imaging protocol: Computed tomographic angiography of the neck with contrast. Exam focused on the cervical segments of the vasculature. 3D rendering (Not supervised by radiologist): MIP and/or 3D reconstructed images were created by the technologist. Radiation optimization: All CT scans at this facility use at least one of these dose optimization techniques: automated exposure control; mA and/or kV adjustment per patient size (includes targeted exams where dose is matched to clinical indication); or iterative reconstruction. Contrast material: ISOVUE; Contrast volume: 100 ml; Contrast route: INTRAVENOUS (IV); COMPARISON: 1. CT ANGIO HEAD 10/13/2023 5:[address] HEAD/BRAIN WO CON 10/13/2023 5:21 PM FINDINGS: Right common carotid artery: No stenosis. No dissection or occlusion. Right internal carotid artery: No stenosis of the extracranial segment. No dissection or occlusion. Right external carotid artery: No occlusion or stenosis of the origin. Left common carotid artery: No stenosis. No dissection or occlusion. Left internal carotid artery: No stenosis of the extracranial segment. No dissection or occlusion. Left external carotid artery: No occlusion or stenosis of the origin. Right vertebral artery: No stenosis. No dissection or occlusion. Left vertebral artery: No stenosis. No dissection or occlusion. Soft tissues: Normal. No significant soft tissue swelling. Bones/joints: No acute fracture. IMPRESSION: No stenosis or occlusion. REFERENCES: NASCET CRITERIA. The degree of stenosis in the cervical segment of the internal carotid artery is based on NASCET criteria. Normal is no stenosis. Mild is less than 50% stenosis. Moderate is 50-69% stenosis. Severe is 70% to 99% stenosis. Total occlusion is no detectable patent lumen.
--- NOTE | 2023-10-13 17:11 | CT_ITS ---
PROCEDURE INFORMATION: Exam: CTA Chest With Contrast Exam date and time: 10/13/2023 5:26 PM Age: 77 years old Clinical indication: Other: AMS, syncope TECHNIQUE: Imaging protocol: Computed tomographic angiography of the chest with contrast. Exam focused on the arteries. 3D rendering (Not supervised by radiologist): MIP and/or 3D reconstructed images were created by the technologist. Radiation optimization: All CT scans at this facility use at least one of these dose optimization techniques: automated exposure control; mA and/or kV adjustment per patient size (includes targeted exams where dose is matched to clinical indication); or iterative reconstruction. Contrast material: ISOVUE; Contrast volume: 100 ml; Contrast route: INTRAVENOUS (IV); COMPARISON: 1. CT ANGIO ABDOMEN PELVIS 10/13/2023 5:[address] ANGIO NECK 10/13/2023 5:23 PM FINDINGS: Pulmonary arteries: Normal. No pulmonary emboli. Aorta: The aorta is normal caliber without focal abnormality. No dissection or aneurysm. There is atherosclerotic disease of the visualized aorta and its major branch vessels. Lungs: There are scattered calcified granulomas in the lungs which most likely reflect prior granulomatous disease. There are few scattered pulmonary nodules measuring up to 1 cm (image 59 series 5), several of these appear inflammatory and a three-month follow-up study is suggested. (Reference: Valerie). Scattered areas of bronchial wall thickening which are likely chronic inflammatory. A few areas of subpleural reticulation are noted, nonspecific. There is scattered ground-glass opacity which could reflect air trapping. There is patchy atelectasis at the lung bases. Mild scattered pulmonary. Pleural spaces: Unremarkable. No pneumothorax. No pleural effusion. Heart: Unremarkable. No cardiomegaly. No pericardial effusion. Lymph nodes: There are calcified mediastinal lymph nodes likely reflecting prior granulomatous disease. Diaphragm: There is a moderate hiatal hernia. Intraperitoneal space: Please see the dedicated interpretation of abdomen and pelvis for findings in that region. Bones/joints: There is diffuse degenerative disease of the visualized osseous structures. Soft tissues: Unremarkable. IMPRESSION: 1. The aorta is normal caliber without focal abnormality. No dissection or aneurysm. 2. Please see the dedicated interpretation of abdomen and pelvis for findings in that region. 3. There are few scattered pulmonary nodules measuring up to 1 cm (image 59 series 5), several of these appear inflammatory and a three-month follow-up study is suggested. (Reference: Valerie). REFERENCES: Valerie Loaiza, et al. Guidelines for Management of Incidental Pulmonary Nodules Detected on CT Images: From the Fleischner Society 2017. Radiology. 2017;284(1):228-243.
--- NOTE | 2023-10-13 17:11 | XR_ITS ---
PROCEDURE INFORMATION: Exam: XR Chest Exam date and time: 10/13/2023 5:49 PM Age: 77 years old Clinical indication: Other: AMS, syncope TECHNIQUE: Imaging protocol: Radiologic exam of the chest. Views: 1 view. COMPARISON: CT ANGIO CHEST 10/13/2023 5:26 PM FINDINGS: Limitations: The patient is wearing a bra which minimally limits the study. Lungs: No evidence of acute pulmonary disease or infiltrates Pleural spaces: No large effusion or pneumothorax. Heart/Mediastinum: There is a moderate hiatal hernia. Stable cardiac and mediastinal contours. Bones/joints: No evidence of acute osseous abnormalities within the visualized portions of the thoracic spine and ribs. Osseous structures appear appropriate for patient age. IMPRESSION: No dense parenchymal consolidation, pleural effusion, or pneumothorax.
--- NOTE | 2023-10-13 17:11 | CT_ITS ---
PROCEDURE INFORMATION: Exam: CT Head Without Contrast Exam date and time: 10/13/2023 5:21 PM Age: 77 years old Clinical indication: Altered mental status/memory loss and syncope and collapse; Additional info: Found down, syncope, AMS TECHNIQUE: Imaging protocol: Computed tomography of the head without contrast. Radiation optimization: All CT scans at this facility use at least one of these dose optimization techniques: automated exposure control; mA and/or kV adjustment per patient size (includes targeted exams where dose is matched to clinical indication); or iterative reconstruction. COMPARISON: No relevant prior studies available. FINDINGS: Brain: The brain parenchyma appears unremarkable, with no signs of acute intracranial hemorrhage or significant mass effect. There is hypodensity in the subcortical and periventricular white matter which is technically nonspecific but most often related to chronic microvascular disease. Cerebral ventricles: Mild ventricular enlargement consistent with age-related cerebral atrophy is noted. Paranasal sinuses: Paranasal sinuses show age-appropriate mucosal thickening. Mastoid air cells: Visualized mastoid air cells are well aerated. Bones/joints: There are no skull fractures or bony lesions. Soft tissues: Unremarkable. IMPRESSION: Presumably age-related and chronic changes without acute intracranial abnormality.
--- NOTE | 2023-10-13 17:19 | PC.NURSE ---
PT TO CT, RN X 2
--- NOTE | 2023-10-13 17:22 | HMH.EDGENADL ---
Discharge Plan Disposition Patient Disposition: Xfer Short-Term Hosp Chief Complaint: Fall Prescriptions Prescriptions: No Action hydrocodone-acetaminophen 7.5-325 mg tablet 1 tab PO Q6H PRN coenzyme Q10 100 mg capsule 100 mg PO DAILY Excedrin Migraine 250-250-65 mg tablet 2 tab PO Q4-6H PRN acetaminophen 500 mg capsule 1,000 mg PO ONCE chlorpheniramine maleate [Allergy Relief(chlorpheniramn)] 4 mg tablet 4 mg PO Q8H PRN Rx Instructions: do not exceed 2 doses per 24 hrs meloxicam 15 mg tablet 15 mg PO DAILY lisinopril-hydrochlorothiazide 20-12.5 mg Tablet 1 tab PO DAILY Hold Instructions: Resume on 12/16/22. gabapentin 300 mg Capsule 300 mg PO BID pravastatin 40 mg tablet 40 mg PO HS omeprazole 40 mg capsule,delayed release(DR/EC) 40 mg PO BID ferrous sulfate [Iron (ferrous sulfate)] 325 mg (65 mg iron) tablet 325 mg PO .qod Rx Instructions: Take 1 tab every other day Referrals Follow up/Referrals: Placido Mercado [Primary Care Provider] - See instructions Clinical Impressions Clinical Impression: Acute intestinal ischemia, Septic shock, Acute hypoxemic respiratory failure Stand Alone Forms Stand Alone Forms: Transfer Record - ED Discharge ED Provider: Neri Saha General Adult HPI General Chief complaint: Fall Stated complaint: Hypotensive Time Seen by Provider: 10/13/23 17:11 History of Present Illness HPI narrative: 77-year-old female unknown medical history presenting with altered mental status. Patient was on the toilet when she syncopized. Syncopized multiple times, called her son. Son called EMS. EMS arrived, patient was hypotensive and not responsive to fluids. Was given 10 mcg of push dose epinephrine. Glucose 200 at the time. Patient multiple syncopal episodes on the way to the emergency department. Related Data Home Medications Medication Instructions Recorded Confirmed gabapentin 300 mg capsule 300 mg PO BID Restless leg syndrome 12/11/22 05/17/23 lisinopril 20 1 tab PO DAILY High blood pressure 12/11/22 05/17/23 mg-hydrochlorothiazide 12.5 mg tablet omeprazole 40 mg capsule,delayed 40 mg PO BID Acid reflux 12/12/22 05/17/23 release pravastatin 40 mg tablet 40 mg PO HS Cholesterol 12/12/22 05/17/23 ferrous sulfate 325 mg (65 mg 325 mg PO .qod Supplement 02/07/23 05/17/23 iron) tablet (Iron (ferrous sulfate)) acetaminophen 500 mg capsule 1,000 mg PO ONCE 04/05/23 05/17/23 afesjzz-uoncwscyegsyw-uarvzgxh 250 2 tab PO Q4-6H PRN 04/05/23 05/17/23 mg-250 mg-65 mg tablet (Excedrin Migraine) chlorpheniramine maleate 4 mg 4 mg PO Q8H PRN 04/05/23 05/17/23 tablet (Allergy Relief (chlorpheniramine)) coenzyme Q10 100 mg capsule 100 mg PO DAILY 04/05/23 05/17/23 hydrocodone 7.5 mg-acetaminophen 1 tab PO Q6H PRN 04/05/23 05/17/23 325 mg tablet meloxicam 15 mg tablet 15 mg PO DAILY 05/17/23 05/17/23 Allergies Allergy/AdvReac Type Severity Reaction Status Date / Time No Known Allergies Allergy Verified 05/17/23 10:32 [facility] Disclaimer: The information contained in this section may have been updated after the patient was seen, as this information can be updated by other users. Medical History Cataract Hammertoe of left foot Hemorrhoid History of anemia History of back pain History of gastroesophageal reflux (GERD) Hyperlipidemia Hypertension Left foot drop Osteoarthritis Surgical History History of colonoscopy Family History Other Family history of diabetes mellitus type II Family history of hyperlipidemia Family history of hypertension Family history of leukemia Social History Smoking Status: Never smoker alcohol intake: never substance use type: denies use current occupational status: unemployed Travel in the last 8 weeks: None household members: children housing: house lives independently: No marital status: well-balanced diet: daily or most days physical activity: none ROS Obtained: Yes All systems reviewed & no additional complaints except as documented Physical Exam General General appearance: other (Ill-appearing, diaphoretic, pale) Neck Neck exam: Present trachea midline Chest Chest inspection: Present normal inspection and symmetric chest wall rise Respiratory Respiratory exam: Present normal lung sounds bilaterally; Absent respiratory distress, wheezes, stridor, accessory muscle use or prolonged expiratory phase Cardiovascular Cardiovascular exam: Present regular rate and normal rhythm Abdominal Exam Abdominal exam: Present soft; Absent distention, tenderness or guarding Extremities Exam Extremities exam: Absent edema Neurological Exam Neurological exam: Present alert, oriented X3, CN II-XII intact and other (GCS 14) Skin Skin exam: Present warm, dry, diaphoresis and pallor; Absent cyanosis Medical Decision Making Medical Records Medical records reviewed: Yes I reviewed the patient's medical records. [place] Inquiry Pt receiving controlled substance: No [place] was queried for this patient: No Vital Signs: 10/13/23 17:21 10/13/23 18:35 10/13/23 18:44 Temperature 95.2 F L Temperature Source Rectal Pulse Rate Pulse Rate [Left Radial] 87 Respiratory Rate 20 Blood Pressure 84/60 L 92/65 L Blood Pressure [Right Arm] 55/36 L Blood Pressure Mean 65 72 Blood Pressure Mean [Right Arm] 42 Blood Pressure Position 02 Sat by Pulse Oximetry 90 L Oxygen Delivery Method Nasal Cannula Oxygen Flow Rate (LPM) 2 10/13/23 18:50 10/13/23 18:54 10/13/23 19:00 Temperature Temperature Source Pulse Rate Pulse Rate [Left Radial] Respiratory Rate Blood Pressure 89/58 L 95/39 L 93/63 L Blood Pressure [Right Arm] Blood Pressure Mean 64 57 72 Blood Pressure Mean [Right Arm] Blood Pressure Position 02 Sat by Pulse Oximetry Oxygen Delivery Method Oxygen Flow Rate (LPM) 10/13/23 19:10 10/13/23 19:15 10/13/23 19:20 Temperature Temperature Source Pulse Rate Pulse Rate [Left Radial] Respiratory Rate Blood Pressure 94/69 L 88/56 L 95/62 L Blood Pressure [Right Arm] Blood Pressure Mean 74 66 68 Blood Pressure Mean [Right Arm] Blood Pressure Position 02 Sat by Pulse Oximetry Oxygen Delivery Method Oxygen Flow Rate (LPM) 10/13/23 19:30 10/13/23 19:35 10/13/23 19:40 Temperature Temperature Source Pulse Rate Pulse Rate [Left Radial] Respiratory Rate Blood Pressure 107/64 L 85/57 L 102/69 L Blood Pressure [Right Arm] Blood Pressure Mean 75 69 77 Blood Pressure Mean [Right Arm] Blood Pressure Position 02 Sat by Pulse Oximetry Oxygen Delivery Method Oxygen Flow Rate (LPM) 10/13/23 21:05 Temperature 98.1 F Temperature Source Oral Pulse Rate 89 Pulse Rate [Left Radial] Respiratory Rate 15 Blood Pressure 130/99 H Blood Pressure [Right Arm] Blood Pressure Mean Blood Pressure Mean [Right Arm] Blood Pressure Position Supine 02 Sat by Pulse Oximetry Oxygen Delivery Method Room Air Oxygen Flow Rate (LPM) Lab Data Lab Results 10/13/23 17:08: WBC 7.5, RBC 4.70, Hgb 15.0, Hct 45.9, MCV 97.7, MCH 32.0 H, MCHC 32.8, RDW 12.6, Plt Count 380, MPV 8.0, Neut % (Auto) 64.5, Lymph % (Auto) 28.9, [place] % (Auto) 2.8, Eos % (Auto) 3.4, Baso % (Auto) 0.4, Neut # (Auto) 4.9, Lymph # (Auto) 2.2, [place] # (Auto) 0.2, Eos # (Auto) 0.3, Baso # (Auto) 0.0, Sodium 127 L, Potassium 4.1, Chloride 99, Carbon Dioxide 14 L, Anion Gap 18.1 H, BUN 42 H, Creatinine 1.50 H, Estimated Creat Clear 42, Estimated GFR 34 L, Est GFR ( Amer) 41 L, Glucose 208 H, Lactate 5.5 H, Calcium 9.6, Total Bilirubin 0.5, AST 46 H, ALT 34, Alkaline Phosphatase 106, Total Creatine Kinase 127, Troponin I < 0.01, NT-Pro-B Natriuret Pep 162, Total Protein 6.2 L, Albumin 4.1, Globulin 2.1, Albumin/Globulin Ratio 2.0 H 10/13/23 18:28: Blood Type A Positive, Antibody Screen Negative 10/13/23 17:08 10/13/23 17:08 Orders (Tests/Meds): ED MEDICATIONS Generic Name Dose Route Start Last Admin Trade Name Freq PRN Reason Stop Dose Admin Norepinephrine/Dextrose 8 mg in 250 mls @ 3.75 mls/hr 10/13/23 17:40 10/13/23 20:05 Norepinephrine 8mg/250ml-D5w Premix IV 11/12/23 17:39 7 mcg/min .Q24H FERDINAND 13.13 mls/hr Infusion Protocol 2 MCG/MIN Miscellaneous 1 each 10/13/23 17:45 10/13/23 19:46 Vancomycin Consult Request NOTAPPLIC 11/12/23 17:44 1 each CONSULT PHARMACY FERDINAND Administration Sodium Chloride 10 ml 10/13/23 17:13 Sodium Chloride 0.9% 10ml Vial IV 11/12/23 17:12 NEEDED PRN dilute protonix Sodium Chloride 10 ml 10/13/23 17:34 10/13/23 17:36 Sodium Chloride 0.9% 10ml Syr (Rad Only) IV 11/12/23 17:33 10 ml NEEDED PRN Administration Maintain IV Site Discontinued Medications Generic Name Dose Route Start Last Admin Trade Name Freq PRN Reason Stop Dose Admin Hydrocortisone Sodium Succinate 100 mg 10/13/23 18:49 10/13/23 19:43 Hydrocortisone Sod Succinate 100mg Vial IV 10/13/23 18:50 100 mg ONCE ONE Administration Ampicillin Sodium/Sulbactam 100 mls @ 200 mls/hr 10/13/23 17:36 10/13/23 19:40 Sodium 3 gm/ Sodium Chloride IV 10/13/23 17:37 200 mls/hr ONCE ONE Administration Vancomycin/PEG/NADA/Lysine/Water 1.75 gm in 350 mls @ 175 mls/hr 10/13/23 17:45 10/13/23 20:24 Vancomycin 1.75gm/350ml (Peg) Premix IV 10/13/23 19:44 175 mls/hr ONCE ONE Administration Lactated Ringer's 1,000 mls @ 999 mls/hr 10/13/23 17:30 10/13/23 17:30 Lactated Ringer's 1000 Ml Bag IV 10/13/23 18:30 999 mls/hr .Q1H1M ONE Administration Lactated Ringer's 1,000 mls @ 999 mls/hr 10/13/23 17:30 10/13/23 17:30 Lactated Ringer's 1000 Ml Bag IV 10/13/23 18:30 999 mls/hr .Q1H1M ONE Administration Sodium Chloride 1,000 mls @ 999 mls/hr 10/13/23 18:51 10/13/23 17:30 Sod Chlor 0.9% 1000ml Bag IV 10/13/23 19:51 999 mls/hr .Q1H1M ONE Administration Lactated Ringer's 1,000 mls @ 999 mls/hr 10/13/23 17:30 10/13/23 17:30 Lactated Ringer's 1000 Ml Bag IV 10/13/23 18:30 999 mls/hr .Q1H1M ONE Administration Iopamidol 200 ml 10/13/23 17:34 10/13/23 17:35 Iopamidol-370 (76%);100ml Bottle IV 10/13/23 17:35 200 ml ONCE ONE Administration Ondansetron HCl 4 mg 10/13/23 17:13 10/13/23 17:45 Ondansetron 4mg/2ml Vial IV 10/13/23 17:14 4 mg ONCE ONE Administration Pantoprazole Sodium 40 mg 10/13/23 17:13 10/13/23 17:46 Pantoprazole 40mg Vial IV 10/13/23 17:14 40 mg ONCE ONE Administration Sodium Chloride 50 ml 10/13/23 17:34 10/13/23 17:35 0.9 % Sodium Chloride 50 Ml Vial IV 10/13/23 17:35 50 ml ONCE ONE Administration ORDERS Category Date Time Status Type and Screen Stat BBK 10/13/23 18:[address] angio abdomen pelvis Stat Cat Scan 10/13/23 17:[address] angio chest - dissection Stat Cat Scan 10/13/23 17:[address] angio head Stat Cat Scan 10/13/23 17:[address] angio neck Stat Cat Scan 10/13/23 17:[address] head/brain wo con Stat Cat Scan 10/13/23 17:11 Completed CXR --portable [XR chest portable] Stat Exams 10/13/23 17:11 Completed Brain Natriuretic Peptide Stat Lab 10/13/23 17:08 Completed CBC w/Auto Diff [Complete Blood Count Auto Diff] Stat Lab 10/13/23 17:08 Completed CK [Creatine Kinase] Stat Lab 10/13/23 17:08 Completed CMP [Comprehensive Metabolic Panel] Stat Lab 10/13/23 17:08 Completed Lactic Acid Follow Up (RFLX 1) Stat Lab 10/13/23 21:18 Ordered Lactic Acid Stat Lab 10/13/23 17:08 Completed Trop I [Troponin I] Stat Lab 10/13/23 17:08 Completed Blood Culture Stat Micro 10/13/23 18:28 Received Medical Decision Narrative: 77-year-old female unknown medical history presenting with altered mental status. Patient was on the toilet when she syncopized. Syncopized multiple times, called her son. Son called EMS. EMS arrived, patient was hypotensive and not responsive to fluids. Was given 10 mcg of push dose epinephrine. Glucose 200 at the time. Patient multiple syncopal episodes on the way to the emergency department. History was obtained via conversation with EMS. On arrival, patient hypotensive 80s over 40s, nontachycardic, GCS 14, moving all extremities spontaneously, pupils equal and reactive to light. Full physical exam performed and significant for pale, diaphoretic, ill-appearing. Not in acute distress. Lungs are clear to auscultation, pulses equal and symmetric. Cardiac exam within normal limits. Abdomen is soft, nondistended, nontender Differential includes intracranial bleed, massive PE, dissection, ACS, [place], pneumothorax, tamponade, intra-abdominal hemorrhage, among others. Patient was given 2 L saline for symptomatic management and correction of underlying abnormalities. Cardiac pads were placed, patient also given IV Protonix, IV Zofran. Workup independently interpreted and significant for no leukocytosis. Hemoglobin stable. Patient has hyponatremia 127, anion gap 18 and VIR[place] with creatinine 1.5. Lactate 5.5. CTA of the chest, abdomen, pelvis concerning for diffuse bowel wall thickening concerning for bowel ischemia. No intrathoracic findings acutely. CT of the head and CTA head and neck without acute findings. See radiology read for full review of final results. Independent interpretation of EKG shows sinus rhythm 92 beats a minute no ST or T wave changes concerning for acute ischemia. AR, QRS, QT intervals within normal limits. [place] normal. Patient placed on equipment monitor phototypesetting and continuous pulse ox. Blood pressure 82/41, heart rate 87, oxygen saturation 91% Patient continued to be hypotensive. Arterial line was placed. Patient started on norepinephrine shortly after arrival given persistently hypotensive pressures. Also on 2 L nasal cannula to saturate more than 90%. Given 100 mg stress dose hydrocortisone. Patient was also given vancomycin and Unasyn. On reevaluation, patient more stable on medications and fluids. Hospitalist service here as well as surgeon on-call were contacted and recommended transfer to tertiary care hospital. [facility] was contacted and case was discussed at length, recommended transfer to [facility] for further management. Given patient presentation, workup, history, this most likely represents intestinal ischemia. Because patient high risk for clinical decompensation if discharged, deemed appropriate for transfer and inpatient admission. Results were relayed to patient who voiced understanding and patient was agreeable to transfer, inpatient admission, and management. Patient was graciously accepted and transferred to [facility] for further definitive management, under Dr. Luna Procedures Arterial Line Time Out Performed: Yes Size (Gauge): 20 Technique Used: guide wire technique Post-Procedure: line sutured into place Patient Tolerated Procedure: well Complications: none Site: right and radial Critical Care Critical Care Time Critical Care Time: Yes (CV, gi) Attestation: On 10/13/23, the high probability of a clinically significant, sudden or life threatening deterioration of the following system(s) required my full and direct attention, intervention and personal management. The time I documented below is in addition to time spent performing reported procedures but includes the following listed in this critical care notation. Total Time Total Critical Care Time: 120
[2023-10-13 17:25] LABS: Chloride 99 mmol/L (98-107); Potassium 4.1 mmoL/L (3.5-5.1); Sodium 127 mmol/L (136-145)
--- NOTE | 2023-10-13 17:27 | PC.NURSE ---
1727 LACTIC RECEIVED FROM KALEB IN LAB. PT NAME AND R/V. DR MAURO NOTIFIED. NO NEW ORDERS
[2023-10-13 17:28] LABS: Alanine Aminotransferase 34 U/L (12-78); Albumin Level 4.1 g/dl (3.5-5.0); Alkaline Phosphatase 106 U/L (38-126); Anion Gap 18.1 mEq/L (5-15); Aspartate Amino Transferase 46 U/L (14-36); Basophils % 0.4 % (0.1-2.0); Bilirubin,Total 0.5 mg/dl (0.2-1.3); Blood Urea Nitrogen 42 mg/dl (7-17); Calcium 9.6 mg/dl (8.4-10.2); Carbon Dioxide 14 mmol/L (22.0-30.0); Creatine Kinase 127 U/L (30-135); Creatinine Clearance Estimated 42 mL/min (50-200); Eosinophils # 0.3 K/mm3 (0.0-0.4); Eosinophils % 3.4 % (0.1-12.0); Estimated Glomerular Filt Rate 34 ml/min (>60); GFR (African American) 41 ML/MIN (>60); Globulin 2.1 g/dL (1.3-3.2); Glucose 208 mg/dl (74-100); Hematocrit 45.9 % (37.0-47.0); Lactic Acid 5.5 mmol/L (0.7-2.1); Lymphocytes # 2.2 K/mm3 (0.7-4.5); Lymphocytes % 28.9 % (10-50); Mean Corpuscular HGB Conc 32.8 g/dL (31.8-35.4); Mean Corpuscular Volume 97.7 fl (81-99); Monocytes # 0.2 K/mm3 (0.1-1.0); Monocytes % 2.8 % (1.7-9.3); Neutrophils # 4.9 K/mm3 (1.8-7.8); Neutrophils % 64.5 % (37.0-80.0); Platelet Count 380 K/mm3 (142-424); Red Cell Distribution Width 12.6 % (11.5-17.5); Total Protein,Serum 6.2 g/dl (6.3-8.2); White Blood Count 7.5 K/mm3 (4.8-10.8)
--- NOTE | 2023-10-13 17:28 | PC.NURSE ---
Patricia from lab called to report critical lactic of 5.5 to Josh Young RN. Repeated and confirmed.
[2023-10-13] MEDS: LACTATED RINGERS 1000ML 1,000 ML 999 ML IV ×3 (17:30)
[2023-10-13] MEDS: 0.9 % SODIUM CHLORIDE 1000ML 1,000 ML 999 ML IV (17:30)
[2023-10-13] MEDS: IOPAMIDOL-370 (76%);100ML BOTTLE 200 ML IV (17:35)
[2023-10-13] MEDS: 0.9 % SODIUM CHLORIDE 50 ML VIAL IV (17:35)
[2023-10-13 17:36] LABS: NT Pro Brain Natriuretic Pep. 162 pg/mL (0-450)
[2023-10-13] MEDS: SODIUM CHLORIDE 0.9% 10ML SYR (RAD ONLY) 10 ML IV (17:36)
[2023-10-13] MEDS: ONDANSETRON 4MG/2ML VIAL 4 MG IV (17:45)
[2023-10-13] MEDS: PANTOPRAZOLE 40MG VIAL 40 MG IV (17:46)
[2023-10-13 17:52] LABS: Troponin I < 0.01 ng/ml (0.00-0.034)
[2023-10-13] MEDS: NOREPINEPHRINE BITARTRATE/D5W 8 MG/250 ML PLAST..BAG 3.75 MG IV (18:07)
--- NOTE | 2023-10-13 18:37 | PC.NURSE ---
DR MAURO SPEAKING WITH DR ZALDIVAR
--- NOTE | 2023-10-13 18:58 | PC.NURSE ---
Called [facility] about possible transfer. Waiting for call back.
--- NOTE | 2023-10-13 19:25 | PC.NURSE ---
contacted [facility] and was told the attending was busy on another call. was told that the attending will call us back. spoke with coral.
--- NOTE | 2023-10-13 19:33 | PC.NURSE ---
at bedside for art line
--- NOTE | 2023-10-13 19:35 | PC.NURSE ---
A-line placement by Dr Saha at this time
[2023-10-13] MEDS: AMPICILLIN/SULBACTAM 3 GM in 0.9 % SODIUM CHLORIDE 100 ML IV (19:40)
[2023-10-13] MEDS: HYDROCORTISONE SOD SUCCINATE 100MG VIAL 100 MG IV (19:43)
[2023-10-13] MEDS: VANCOMYCIN CONSULT REQUEST 1 EACH NOTAPPLIC (19:46)
--- NOTE | 2023-10-13 19:49 | PC.NURSE ---
CALL RECEIVED FROM ; SPEAKING WITH DR Agrawal AT THIS TIME.
--- NOTE | 2023-10-13 20:00 | PC.NURSE ---
CONTACTED [facility] FOR SCAN [facility]; TO BURN DISK. SPOKE WITH JAYCOB.
--- NOTE | 2023-10-13 20:15 | PC.NURSE ---
Documenting RN assisted Dr. Saha with right radial arterial line. x2 attempt with success on 2nd attempt per provider. Positive pulsation and appropriate pleth on monitor. Patient tolerated well.
--- NOTE | 2023-10-13 20:18 | PC.NURSE ---
assisted RN, patient cleaned and placed on bed smith
[2023-10-13] MEDS: VANCOMYCIN/WATER FOR INJ (PEG) 1.75 GM/350 ML PIGGYBACK IV (20:24)
--- NOTE | 2023-10-13 20:28 | PC.NURSE ---
pt incontinent of bowels, cleaned up provided with clean linens and brief
--- NOTE | 2023-10-13 20:29 | PC.NURSE ---
Dr Saha on phone with
--- NOTE | 2023-10-13 20:48 | PC.NURSE ---
return call from [facility] [place] [facility] & 2 both declined due to weather
--- NOTE | 2023-10-13 21:07 | PC.NURSE ---
EMS notified that patient is ready for transfer and that an RN will be with them
[2023-10-13 21:18] LABS: Reflex Lactic Add Lactic Reflex
--- NOTE | 2023-10-20 18:50 | PC.NURSE ---
attempted to call [facility] to fax blood culture results, hung up on 3 times, aware, passed on to [place] to attempt again.
--- NOTE | 2023-10-22 12:15 | PC.NURSE ---
faxed blood culture results to [phone].
== END 2023-10-13 21:51 | disposition short-term general hospital (02) ==
PROVIDERS: Emergency Provider Emergency Medicine; PCP Family Medicine
DX: A41.9 Sepsis, unspecified organism (principal); R65.21 Severe sepsis with septic shock; K55.059 Acute (reversible) ischemia of intestine, part and extent unspecified; J96.01 Acute respiratory failure with hypoxia; R41.82 Altered mental status, unspecified; R55 Syncope and collapse; I10 Essential (primary) hypertension; E78.5 Hyperlipidemia, unspecified
CPT/HCPCS: 36415; 70450; 70496; 70498; 71045; 71275; 74174; 80053; 82550; 83605; 83880; 84484; 85025; 86850; 87040; 93005; 96361; 96365; 96366; 96375; 99291; 99292; J2405; Q9967

== ENCOUNTER 2024-07-18 12:23 | Emergency (ER) | payer MEDICARE, SELFPAY ==
--- NOTE | 2024-07-18 12:34 | ED_ITS ---
Discharge Plan Disposition Patient Disposition: Home, Self-Care Condition: Fair Prescriptions Prescriptions: New oxycodone 5 mg tablet 5 mg PO Q6H PRN (Reason: pain) Qty: 10 0RF No Action hydrocodone-acetaminophen 7.5-325 mg tablet 1 tab PO Q6H PRN coenzyme Q10 100 mg capsule 100 mg PO DAILY Excedrin Migraine 250-250-65 mg tablet 2 tab PO Q4-6H PRN acetaminophen 500 mg capsule 1,000 mg PO ONCE chlorpheniramine maleate [Allergy Relief(chlorpheniramn)] 4 mg tablet 4 mg PO Q8H PRN Rx Instructions: do not exceed 2 doses per 24 hrs meloxicam 15 mg tablet 15 mg PO DAILY lisinopril-hydrochlorothiazide 20-12.5 mg Tablet 1 tab PO DAILY gabapentin 300 mg Capsule 300 mg PO BID pravastatin 40 mg tablet 40 mg PO HS omeprazole 40 mg capsule,delayed release(DR/EC) 40 mg PO BID ferrous sulfate [Iron (ferrous sulfate)] 325 mg (65 mg iron) tablet 325 mg PO .qod Rx Instructions: Take 1 tab every other day Referrals Follow up/Referrals: Ermias Macias DO [Staff Physician] - See instructions Placido Mercado [Primary Care Provider] - See instructions Activity Restrictions/Add. Instructions Additional Instructions/Restrictions: As we discussed, you have a fracture of the neck of your humerus which is the bone of your left arm near the shoulder. I have prescribed a course of pain medications and placed a referral to the orthopedic surgeon Dr. Macias. I have attached a handout with instructions for care for this type of fracture. We have also given you a sling for you to wear. Please return with any new or worsening symptoms. Clinical Impressions Clinical Impression: Fracture of neck of humerus Qualifiers: Encounter type: initial encounter Fracture type: closed Laterality: left Qualified Code(s): S42.212A - Unspecified displaced fracture of surgical neck of left humerus, initial encounter for closed fracture Instructions Patient Instructions: DI for Humeral Fracture Print Language Print Language: Estonian Discharge ED Provider: Hernando Bach Adult HPI General Chief complaint: Fall Stated complaint: AO-Fall 1100 hours, Pain in L shoulder Time Seen by Provider: 07/18/24 12:34 History of Present Illness HPI narrative: The patient presents with a chief complaint of left shoulder pain following a fall. The patient reports that she dropped her foot, causing her to fall off the stairs and land on her left shoulder. The pain is localized close to the shoulder, with no reported pain in the elbow or arm. The patient denies any numbness or tingling, and also denies hitting her head during the fall. The patient has a history of weakness on the left side, with no reported history of stroke. Additionally, the patient has a history of osteoporosis. The patient denies any previous shoulder problems or use of blood thinners. During the examination, the patient did not experience any pain in the back or rib area. The patient reports that during the fall, she did not put out her hand to break the fall. After the incident, the patient had to scoot approximately 15 to 40 feet on her back to reach her phone. X-rays were taken of the patient's arm, elbow, forearm, and collarbone, with results pending at the time of the visit. The patient describes having a really bad back foot that caused the foot to drop. She mentions being weaker on the left side compared to the right, stating that it just stays that way. After the fall, the patient managed to roll over onto her back due to the arm pain. The patient also notes that the pain is right up close to my shoulder and points to an area on the arm when asked about the location of the pain. Please note that above description of symptoms, in this electronic medical record under categorization of recalled from ER triage doctor by RN are reflective of an initial nursing assessment, however, is not reflective of my full history and physical exam that was personally taken and clarified. Consequ entially, this preceding description of symptoms, which may include the patient's categorized chief complaint in the EMR, do not reflect my personal clinical impression, and the ultimate description of history of present illness and patient stated complaints should be deferred to this section of the note. Unless stated otherwise or congruent with this section of the note, additional signs, symptoms, or incongruence should be interpreted as inaccurate with my clinical impression. Related Data Home Medications ?Medication ?Instructions ?Recorded ?Confirmed gabapentin 300 mg capsule 300 mg PO BID Restless leg syndrome 12/11/22 05/17/23 lisinopril 20 1 tab PO DAILY High blood pressure 12/11/22 05/17/23 mg-hydrochlorothiazide 12.5 mg tablet omeprazole 40 mg capsule,delayed 40 mg PO BID Acid reflux 12/12/22 05/17/23 release pravastatin 40 mg tablet 40 mg PO HS Cholesterol 12/12/22 05/17/23 ferrous sulfate 325 mg (65 mg 325 mg PO .qod Supplement 02/07/23 05/17/23 iron) tablet (Iron (ferrous sulfate)) acetaminophen 500 mg capsule 1,000 mg PO ONCE 04/05/23 05/17/23 frowztl-[id number] 250 2 tab PO Q4-6H PRN 04/05/23 05/17/23 mg-250 mg-65 mg tablet (Excedrin Migraine) chlorpheniramine maleate 4 mg 4 mg PO Q8H PRN 04/05/23 05/17/23 tablet (Allergy Relief (chlorpheniramine)) coenzyme Q10 100 mg capsule 100 mg PO DAILY 04/05/23 05/17/23 hydrocodone 7.5 mg-acetaminophen 1 tab PO Q6H PRN 04/05/23 05/17/23 325 mg tablet meloxicam 15 mg tablet 15 mg PO DAILY 05/17/23 05/17/23 Previous Rx's ?Medication ?Instructions ?Recorded oxycodone 5 mg tablet 5 mg PO Q6H PRN pain #10 tabs 07/18/24 Allergies Allergy/AdvReac Type Severity Reaction Status Date / Time No Known Allergies Allergy Verified 05/17/23 10:32 [facility] Disclaimer: The information contained in this section may have been updated after the patient was seen, as this information can be updated by other users. Medical History Cataract Hammertoe of left foot Hemorrhoid History of anemia History of back pain History of gastroesophageal reflux (GERD) Hyperlipidemia Hypertension Left foot drop Osteoarthritis Surgical History History of colonoscopy Family History Other Family history of diabetes mellitus type II Family history of hyperlipidemia Family history of hypertension Family history of leukemia Social History Smoking Status: Never smoker alcohol intake: never substance use type: denies use current occupational status: unemployed Travel in the last 8 weeks: None household members: children housing: house lives independently: No marital status: well-balanced diet: daily or most days physical activity: none Other Medical History Have you received the Flu Vaccine for this season: No Have you received the Pneumonia Vaccine: Yes ROS Obtained: Yes other As per HPI Physical Exam General General appearance: alert and in no apparent distress Head Head exam: atraumatic and normocephalic Eye Eye exam: Present normal appearance Neck Neck exam: Present normal inspection Chest Chest inspection: Present normal inspection and symmetric chest wall rise Respiratory Respiratory exam: Present normal lung sounds bilaterally; Absent respiratory distress Cardiovascular Cardiovascular exam: Present regular rate and normal rhythm Abdominal Exam Abdominal exam: Present soft Neurological Exam Neurological exam: Present alert and oriented X3 Psychiatric Psychiatric exam: Present normal affect and normal mood Skin Skin exam: Present warm and dry Other Other exam information: No clinical evidence of injury above the clavicles, isolated closed injury to left shoulder, no obvious deformity, distally neurovascularly intact Medical Decision Making Medical Records Medical records reviewed: Yes I reviewed the patient's medical records. Screening: Per USPSTF and CDC recommendations, given the prevalence of disease in our region, it is our hospital?s policy to screen for HIV and viral Hepatitis for all patients aged 18 and over and those with ongoing risk factors. Wayne Inquiry Pt receiving controlled substance: Yes Wayne was queried for this patient: Yes Risks and benefits of using a controlled substance: were discussed with pt by me Vital Signs: 07/18/24 12:43 07/18/24 13:01 07/18/24 13:31 Temperature 97.7 F Temperature Source Oral Pulse Rate 74 78 Pulse Rate [Left Radial] 89 Respiratory Rate 13 Blood Pressure 159/90 H 157/94 H Blood Pressure [Right Arm] 167/98 H Blood Pressure Mean Blood Pressure Mean [Right Arm] 121 02 Sat by Pulse Oximetry 98 96 98 Oxygen Delivery Method Room Air Room Air Room Air 07/18/24 13:51 07/18/24 14:18 07/18/24 14:34 Temperature 97.7 F Temperature Source Pulse Rate 77 77 Pulse Rate [Left Radial] Respiratory Rate 13 Blood Pressure 154/128 H 156/92 H 156/92 H Blood Pressure [Right Arm] Blood Pressure Mean 121 Blood Pressure Mean [Right Arm] 02 Sat by Pulse Oximetry 98 Oxygen Delivery Method Room Air Lab Data Lab Results 07/18/24 12:41: Hepatitis C Antibody Non reactive, HIV 1&2 Antibody Rapid Nonreactive Orders (Tests/Meds): ED MEDICATIONS Discontinued Medications Generic Name Dose Route Start Last Admin Trade Name Freq PRN Reason Stop Dose Admin Fentanyl Citrate 50 mcg 07/18/24 13:11 07/18/24 13:14 Fentanyl 100mcg/2ml Vial IV 07/18/24 13:12 50 mcg ONCE ONE Administration ORDERS Category Date Time Status XR clavicle LT Stat Exams 07/18/24 12:53 Completed XR elbow LT min 3V Stat Exams 07/18/24 12:53 Completed XR humerus LT Stat Exams 07/18/24 12:53 Completed XR shoulder LT min 2V Stat Exams 07/18/24 12:53 Completed HIV (1&2) Antibody Rapid Stat Lab 07/18/24 12:41 Completed Hep C Ab with Reflex to RNA Stat Lab 07/18/24 12:41 Completed Medical Decision Narrative: Patient with history and exam per above presenting for evaluation of left arm nondominant arm injury Diagnoses considered include fracture, no clinical evidence to warrant concerns for vascular injury, nerve injury, no clinical or historical evidence of head injury or neck injury ED workup and treatment included: ED MEDICATIONS Discontinued Medications Generic Name Dose Route Start Last Admin Trade Name Freq PRN Reason Stop Dose Admin Fentanyl Citrate 50 mcg 07/18/24 13:11 07/18/24 13:14 Fentanyl 100mcg/2ml Vial IV 07/18/24 13:12 50 mcg ONCE ONE Administration ORDERS Category Date Time Status XR clavicle LT Stat Exams 07/18/24 12:53 Completed XR elbow LT min 3V Stat Exams 07/18/24 12:53 Completed XR humerus LT Stat Exams 07/18/24 12:53 Completed XR shoulder LT min 2V Stat Exams 07/18/24 12:53 Completed HIV (1&2) Antibody Rapid Stat Lab 07/18/24 12:41 Completed Hep C Ab with Reflex to RNA Stat Lab 07/18/24 12:41 Completed Imaging was independently visualized and interpreted by me, significant for closed surgical neck fracture of proximal humerus Please refer to radiology report for full details. My clinical impression at this time is most consistent with isolated proximal humerus fracture I discussed my clinical impression with patient and answered all questions. At this time, the evidence for any other entities in the differential is insufficient to warrant any further testing or ED observation. This was explained to the patient. The patient was advised that persistent or worsening symptoms require further evaluation. Critical Care Critical Care Time Critical Care Time: No
[2024-07-18 12:43] VITALS: BP 167/98; PULSE 89; RESP 13; TEMP 36.5; O2SAT 98; BMI 31.4
--- NOTE | 2024-07-18 12:53 | XR_ITS ---
PROCEDURE INFORMATION: Exam: XR Left Shoulder Exam date and time: 07/18/2024 12:55 PM Age: 78 years old Clinical indication: Injury or trauma; Fall; Blunt trauma (contusions or hematomas); Shoulder; Left TECHNIQUE: Imaging protocol: Radiologic exam of the left shoulder. Views: 2 or more views. COMPARISON: CR XR CLAVICLE LT 07/18/2024 12:55 PM FINDINGS: Bones/joints: Visualized portions of the clavicle normal. Mild degenerative changes of the acromioclavicular joint. Glenohumeral joint normal. Scapula normal. Visualized ribs and visualized pulmonary parenchyma normal. Coracoid process normal. Fracture of the surgical neck of the proximal left humerus. Mildly comminuted and minimally displaced. Pleural space: Subtle patchy airspace disease left costophrenic angle. Follow-up. Soft tissues: Normal. IMPRESSION: 1. Fracture of the surgical neck of the proximal left humerus. Mildly comminuted and minimally displaced. 2. Subtle patchy airspace disease left costophrenic angle. Follow-up.
--- NOTE | 2024-07-18 12:53 | XR_ITS ---
PROCEDURE INFORMATION: Exam: XR Left Elbow Exam date and time: 07/18/2024 12:55 PM Age: 78 years old Clinical indication: Injury or trauma; Fall; Blunt trauma (contusions or hematomas); Elbow; Left TECHNIQUE: Imaging protocol: Radiologic exam of the left elbow. Views: 3 or more views. COMPARISON: CR XR CLAVICLE LT 07/18/2024 12:55 PM FINDINGS: Bones/joints: Medial and lateral columns are without fracture. Radial head and proximal ulna are without fracture. No joint effusion. Soft tissues: Normal. IMPRESSION: Unremarkable elbow.
--- NOTE | 2024-07-18 12:53 | XR_ITS ---
PROCEDURE INFORMATION: Exam: XR Left Clavicle, Complete Exam date and time: 07/18/2024 12:55 PM Age: 78 years old Clinical indication: Injury or trauma; Fall; Blunt trauma (contusions or hematomas); Shoulder; Left TECHNIQUE: Imaging protocol: Radiologic exam of the left clavicle. Complete exam. Views: Any number of views. COMPARISON: CR XR HUMERUS LT 07/18/2024 12:55 PM FINDINGS: Bones/joints: Mild degenerative changes of the acromioclavicular joint. No clavicular fracture. Mildly comminuted fracture involving the surgical neck of the left humerus. Soft tissues: Normal. IMPRESSION: 1. Mild degenerative changes of the acromioclavicular joint. No clavicular fracture. 2. Mildly comminuted fracture involving the surgical neck of the left humerus.
--- NOTE | 2024-07-18 12:53 | XR_ITS ---
PROCEDURE INFORMATION: Exam: XR Left Humerus Exam date and time: 07/18/2024 12:55 PM Age: 78 years old Clinical indication: Injury or trauma; Fall; Blunt trauma (contusions or hematomas); Arm, upper; Left TECHNIQUE: Imaging protocol: Radiologic exam of the left humerus. Views: 2 or more views. COMPARISON: CR XR CLAVICLE LT 07/18/2024 12:55 PM FINDINGS: Bones/joints: Mildly comminuted impacted and minimally displaced fracture involving the surgical neck of the left humerus . Soft tissues: Normal. IMPRESSION: Mildly comminuted impacted and minimally displaced fracture involving the surgical neck of the left humerus . Remainder the humerus appears unremarkable.
[2024-07-18 13:01] VITALS: BP 159/90; PULSE 74; O2SAT 96
[2024-07-18] MEDS: FENTANYL 100MCG/2ML VIAL 50 MCG IV (13:14)
[2024-07-18 13:31] VITALS: BP 157/94; PULSE 78; O2SAT 98
[2024-07-18 13:51] VITALS: BP 154/128; PULSE 77; O2SAT 98
[2024-07-18 14:18] VITALS: BP 156/92
[2024-07-18 14:34] VITALS: BP 156/92; PULSE 77; RESP 13; TEMP 36.5
[2024-07-18 14:34] LABS: HIV (1&2) Antibody Rapid NONREACTIVE (NONREACTIVE)
[2024-07-19 07:24] LABS: HCV Ab Non Reactive (Non Reactive)
== END 2024-07-18 14:37 | disposition home or self-care (01) ==
PROVIDERS: Emergency Provider Emergency Medicine; PCP Family Medicine
DX: M25.512 Pain in left shoulder (principal)
CPT/HCPCS: 73000; 73030; 73060; 73080; 87389; J3010

== ENCOUNTER 2024-07-18 17:12 | Emergency (ER) | payer MEDICARE, SELFPAY ==
[2024-07-18 17:12] VITALS: BP 143/87; PULSE 69; RESP 18; TEMP 36.7; O2SAT 98; BMI 24.0
--- NOTE | 2024-07-18 17:13 | ECG_ITS ---
APPROVED REPORT Exam: Resting ECG HR:69 bpm ECG Measurements Heart Rate 69 AXES AR 151 P 56 QRSd 83 QRS 51 QT 406 T 15 QTc 426 Conclusion SINUS RHYTHM NORMAL ECG UNCONFIRMED REPORT Electronically signed by : CRISTA STEWARD, 07/19/2024 06:52:11
--- NOTE | 2024-07-18 17:19 | HMH.EDGENADL ---
Discharge Plan Disposition Patient Disposition: Home, Self-Care Prescriptions Prescriptions: No Action hydrocodone-acetaminophen 7.5-325 mg tablet 1 tab PO Q6H PRN coenzyme Q10 100 mg capsule 100 mg PO DAILY Excedrin Migraine 250-250-65 mg tablet 2 tab PO Q4-6H PRN acetaminophen 500 mg capsule 1,000 mg PO ONCE chlorpheniramine maleate [Allergy Relief(chlorpheniramn)] 4 mg tablet 4 mg PO Q8H PRN Rx Instructions: do not exceed 2 doses per 24 hrs meloxicam 15 mg tablet 15 mg PO DAILY lisinopril-hydrochlorothiazide 20-12.5 mg Tablet 1 tab PO DAILY gabapentin 300 mg Capsule 300 mg PO BID pravastatin 40 mg tablet 40 mg PO HS omeprazole 40 mg capsule,delayed release(DR/EC) 40 mg PO BID ferrous sulfate [Iron (ferrous sulfate)] 325 mg (65 mg iron) tablet 325 mg PO .qod Rx Instructions: Take 1 tab every other day oxycodone 5 mg tablet 5 mg PO Q6H PRN (Reason: pain) Qty: 10 0RF Referrals Follow up/Referrals: Placido Mercado [Primary Care Provider] - See instructions Activity Restrictions/Add. Instructions Additional Instructions/Restrictions: Please return to the emergency department for any worsening signs or symptoms, any further episodes of feeling faint or passing out, please follow-up with family doctor, take all medications as prescribed, please follow-up with the orthopedic physician regarding your left arm fracture. Clinical Impressions Clinical Impression: Frequent falls, Syncope Instructions Patient Instructions: DI for Syncope in Adults (Fainting) Print Language Print Language: Luxembourgish Discharge ED Provider: Manny Enriquez General Adult HPI <LUC Zarate - Last Filed: 07/18/24 18:55> General Chief complaint: Syncope Stated complaint: Syncope Time Seen by Provider: 07/18/24 17:18 Mode of Arrival: EMS Source of Information: Patient, Relative and Medical Record Limitations: No Limitations History of Present Illness HPI narrative: This is a 78-year-old female who presents to the emergency department via EMS for a syncopal episode that happened just prior to arrival. Per patient family bedside, patient was sitting at a table, after she had taken a 5 mg hydrocodone, that she had at home, previous surgery. When she experienced a syncopal like episode, she did not strike her head, she is on no anticoagulant therapy, she was out for around 10 to 15 seconds , did have an episode of shaking , and an episode of nausea and vomiting x 3 after the event according to the family at bedside, at this time she has no acute complaints, data deficient history of low blood pressure reading. Patient was seen in the emergency department this afternoon, for a fall and diagnosed with a left humerus fracture, that was placed in a sling with orthopedic follow-up. She has no acute complaints currently no fever chills chest pain shortness of breath, nausea or vomiting, currently, no diarrhea constipation, no urinary type symptomatology, no dizziness. Her fall this morning was due to dropfoot , data deficient history of of weakness on the left side with no reported history of TIA/CVA, patient has history of osteoporosis, hypertension, hyperlipidemia, GERD, data deficient history of iron deficiency anemia requiring, previous history of blood transfusions Melisa patient's family at the bedside, migraine headaches. Initial vitals unremarkable Onset (ago): hour(s) Related Data Home Medications ?Medication ?Instructions ?Recorded ?Confirmed gabapentin 300 mg capsule 300 mg PO BID Restless leg syndrome 12/11/22 05/17/23 lisinopril 20 1 tab PO DAILY High blood pressure 12/11/22 05/17/23 mg-hydrochlorothiazide 12.5 mg tablet omeprazole 40 mg capsule,delayed 40 mg PO BID Acid reflux 12/12/22 05/17/23 release pravastatin 40 mg tablet 40 mg PO HS Cholesterol 12/12/22 05/17/23 ferrous sulfate 325 mg (65 mg 325 mg PO .qod Supplement 02/07/23 05/17/23 iron) tablet (Iron (ferrous sulfate)) acetaminophen 500 mg capsule 1,000 mg PO ONCE 04/05/23 05/17/23 [id number]-ajnryfdxywwuo-[id number] 250 2 tab PO Q4-6H PRN 04/05/23 05/17/23 mg-250 mg-65 mg tablet (Excedrin Migraine) chlorpheniramine maleate 4 mg 4 mg PO Q8H PRN 04/05/23 05/17/23 tablet (Allergy Relief (chlorpheniramine)) coenzyme Q10 100 mg capsule 100 mg PO DAILY 04/05/23 05/17/23 hydrocodone 7.5 mg-acetaminophen 1 tab PO Q6H PRN 04/05/23 05/17/23 325 mg tablet meloxicam 15 mg tablet 15 mg PO DAILY 05/17/23 05/17/23 Previous Rx's ?Medication ?Instructions ?Recorded oxycodone 5 mg tablet 5 mg PO Q6H PRN pain #10 tabs 07/18/24 Allergies Allergy/AdvReac Type Severity Reaction Status Date / Time No Known Allergies Allergy Verified 05/17/23 10:32 PFSH <LUC Zarate - Last Filed: 07/18/24 18:55> [facility] Disclaimer: The information contained in this section may have been updated after the patient was seen, as this information can be updated by other users. Medical History Cataract Hammertoe of left foot Hemorrhoid History of anemia History of back pain History of gastroesophageal reflux (GERD) Hyperlipidemia Hypertension Left foot drop Osteoarthritis Surgical History History of colonoscopy Family History Other Family history of diabetes mellitus type II Family history of hyperlipidemia Family history of hypertension Family history of leukemia Social History Smoking Status: Never smoker alcohol intake: never substance use type: denies use current occupational status: unemployed Travel in the last 8 weeks: None household members: children housing: house lives independently: No marital status: well-balanced diet: daily or most days physical activity: none Other Medical History Have you received the Flu Vaccine for this season: No Have you received the Pneumonia Vaccine: Yes <LUC Zarate - Last Filed: 07/18/24 18:55> ROS Obtained: Yes All systems reviewed & no additional complaints except as documented Physical Exam <LUC Zarate - Last Filed: 07/18/24 18:55> General General appearance: alert and in no apparent distress Head Head exam: atraumatic and normocephalic Eye Eye exam: Present PERRL and EOMI ENT ENT exam: Present mucous membranes moist Neck Neck exam: Present normal inspection Chest Chest inspection: Present normal inspection and symmetric chest wall rise Respiratory Respiratory exam: Present normal lung sounds bilaterally; Absent respiratory distress Cardiovascular Cardiovascular exam: Present regular rate and normal rhythm Abdominal Exam Abdominal exam: Present soft; Absent tenderness Extremities Exam Extremities exam: Present normal inspection, tenderness and other (Known left humeral head fracture in sling, point tenderness to palpation to the area of fracture around the humeral head, decreased range of motion due to sling and ongoing condition. There was neurovascular intact.); Absent full ROM Neurological Exam Neurological exam: Present alert and oriented X3 Psychiatric Psychiatric exam: Present normal affect Skin Skin exam: Present warm and dry Medical Decision Making <LUC Zarate - Last Filed: 07/18/24 18:55> Medical Records Medical records reviewed: Yes I reviewed the patient's medical records. Screening: Per USPSTF and CDC recommendations, given the prevalence of disease in our region, it is our hospital?s policy to screen for HIV and viral Hepatitis for all patients aged 18 and over and those with ongoing risk factors. [place] Inquiry Pt receiving controlled substance: No [place] was queried for this patient: No Vital Signs: 07/18/24 17:12 07/18/24 17:30 07/18/24 17:34 Temperature 98.1 F Temperature Source Oral Pulse Rate 66 Pulse Rate [Orthostatic Lying Right Radial] 68 Pulse Rate [Orthostatic Sitting Right Radial] 72 Pulse Rate [Orthostatic Standing Right Radial] 75 Pulse Rate [Right] 69 Respiratory Rate 18 Blood Pressure 148/90 H Blood Pressure [Orthostatic Lying] 161/90 H Blood Pressure [Orthostatic Sitting Right Arm] 150/98 H Blood Pressure [Orthostatic Standing Right Arm] 142/90 H Blood Pressure [Right Arm] 143/87 H Blood Pressure Mean 109 Blood Pressure Mean [Right Arm] 105 02 Sat by Pulse Oximetry 98 96 Oxygen Delivery Method Room Air 07/18/24 18:00 07/18/24 18:30 07/18/24 19:03 Temperature 98.1 F Temperature Source Pulse Rate 65 69 70 Pulse Rate [Orthostatic Lying Right Radial] Pulse Rate [Orthostatic Sitting Right Radial] Pulse Rate [Orthostatic Standing Right Radial] Pulse Rate [Right] Respiratory Rate 18 Blood Pressure 154/91 H 161/86 H 161/86 H Blood Pressure [Orthostatic Lying] Blood Pressure [Orthostatic Sitting Right Arm] Blood Pressure [Orthostatic Standing Right Arm] Blood Pressure [Right Arm] Blood Pressure Mean Blood Pressure Mean [Right Arm] 02 Sat by Pulse Oximetry 95 95 Oxygen Delivery Method Room Air Room Air Room Air Lab Data Lab results reviewed: Yes I reviewed the patient's lab results. Lab Results 07/18/24 17:30: WBC 9.5, RBC 3.86 L, Hgb 12.0 L, Hct 35.4 L, MCV 91.7, MCH 31.1, MCHC 33.9, RDW 13.8, Plt Count 362, MPV 7.1 L, Neut % (Auto) 81.3 H, Lymph % (Auto) 12.2, Amelia % (Auto) 4.6, Eos % (Auto) 1.5, Baso % (Auto) 0.3, Neut # (Auto) 7.7, Lymph # (Auto) 1.2, Amelia # (Auto) 0.4, Eos # (Auto) 0.1, Baso # (Auto) 0.0, Sodium 131 L, Potassium 3.9, Chloride 100, Carbon Dioxide 22, Anion Gap 12.9, BUN 19 H, Creatinine 1.00, Estimated Creat Clear 48, Estimated GFR 54 L, Est GFR ( Amer) 65, Glucose 150 H, Calcium 9.3, Magnesium 1.6, Total Bilirubin 0.4, AST 24, ALT 16, Alkaline Phosphatase 71, Troponin I < 0.01, Total Protein 6.0 L, Albumin 3.9, Globulin 2.1, Albumin/Globulin Ratio 1.9 H 07/18/24 17:30 07/18/24 17:30 Orders (Tests/Meds): ORDERS Category Date Time Status CT head/brain wo con Stat Cat Scan 07/18/24 17:28 Completed Complete Blood Count Auto Diff Stat Lab 07/18/24 17:30 Completed Comprehensive Metabolic Panel Stat Lab 07/18/24 17:30 Completed Magnesium Stat Lab 07/18/24 17:30 Completed Troponin I Stat Lab 07/18/24 17:30 Completed Medical Decision Narrative: 78-year-old female presents to the emergency department with a syncopal episode just prior to arrival, differential diagnose include but not limited to symptomatic anemia, vasovagal syncope, cardiogenic syncope, situational syncope, orthostatic hypotension, hypoglycemia, cardiac arrhythmia, electrolyte disturbance. I discussed patient case with the attending physician Dr. Enriquez Basic laboratory studies, EKG, troponin, magnesium level, orthostatics and CT head without contrast for further evaluation as characterization. I along with the attending physician reviewed the patient's EKG, NSR at 69 bpm MS interval within normal is QT interval within normal limits there is no STEMI. CBC is notable for erythrocytopenia at 3.86, hemoglobin hermetic within normal limits CMP notable for hyponatremia at 131, troponin within normal limits, I reviewed the patient CT head without contrast on the corresponding radiologic report no evidence of acute cranial abnormality. Orthostatic vitals are positive, reexamination of the patient at approximately 6:50 PM, patient has remained hemodynamically stable throughout her time in the emergency department, the patient family were concerned, I discussed possible observation admission with patient and family, shared decision making was utilized, admission was declined at this time I think this is appropriate, no further syncopal or presyncopal episodes at this time. Patient has no acute complaints with the exception of ongoing left arm pain from fracture. Strict ED return precautions given to the patient family the bedside patient and family are in agreement with the discharge plan/treatment plan. Follow-up with orthopedic provider as directed. <Manny Enriquez MD - Last Filed: 07/18/24 21:52> Vital Signs: 07/18/24 17:12 07/18/24 17:30 07/18/24 17:34 Temperature 98.1 F Temperature Source Oral Pulse Rate 66 Pulse Rate [Orthostatic Lying Right Radial] 68 Pulse Rate [Orthostatic Sitting Right Radial] 72 Pulse Rate [Orthostatic Standing Right Radial] 75 Pulse Rate [Right] 69 Respiratory Rate 18 Blood Pressure 148/90 H Blood Pressure [Orthostatic Lying] 161/90 H Blood Pressure [Orthostatic Sitting Right Arm] 150/98 H Blood Pressure [Orthostatic Standing Right Arm] 142/90 H Blood Pressure [Right Arm] 143/87 H Blood Pressure Mean 109 Blood Pressure Mean [Right Arm] 105 02 Sat by Pulse Oximetry 98 96 Oxygen Delivery Method Room Air 07/18/24 18:00 07/18/24 18:30 07/18/24 19:03 Temperature 98.1 F Temperature Source Pulse Rate 65 69 70 Pulse Rate [Orthostatic Lying Right Radial] Pulse Rate [Orthostatic Sitting Right Radial] Pulse Rate [Orthostatic Standing Right Radial] Pulse Rate [Right] Respiratory Rate 18 Blood Pressure 154/91 H 161/86 H 161/86 H Blood Pressure [Orthostatic Lying] Blood Pressure [Orthostatic Sitting Right Arm] Blood Pressure [Orthostatic Standing Right Arm] Blood Pressure [Right Arm] Blood Pressure Mean Blood Pressure Mean [Right Arm] 02 Sat by Pulse Oximetry 95 95 Oxygen Delivery Method Room Air Room Air Room Air Lab Data Lab Results 07/18/24 17:30: WBC 9.5, RBC 3.86 L, Hgb 12.0 L, Hct 35.4 L, MCV 91.7, MCH 31.1, MCHC 33.9, RDW 13.8, Plt Count 362, MPV 7.1 L, Neut % (Auto) 81.3 H, Lymph % (Auto) 12.2, Amelia % (Auto) 4.6, Eos % (Auto) 1.5, Baso % (Auto) 0.3, Neut # (Auto) 7.7, Lymph # (Auto) 1.2, Amelia # (Auto) 0.4, Eos # (Auto) 0.1, Baso # (Auto) 0.0, Sodium 131 L, Potassium 3.9, Chloride 100, Carbon Dioxide 22, Anion Gap 12.9, BUN 19 H, Creatinine 1.00, Estimated Creat Clear 48, Estimated GFR 54 L, Est GFR ( Amer) 65, Glucose 150 H, Calcium 9.3, Magnesium 1.6, Total Bilirubin 0.4, AST 24, ALT 16, Alkaline Phosphatase 71, Troponin I < 0.01, Total Protein 6.0 L, Albumin 3.9, Globulin 2.1, Albumin/Globulin Ratio 1.9 H Orders (Tests/Meds): ORDERS Category Date Time Status CT head/brain wo con Stat Cat Scan 07/18/24 17:28 Completed Complete Blood Count Auto Diff Stat Lab 07/18/24 17:30 Completed Comprehensive Metabolic Panel Stat Lab 07/18/24 17:30 Completed Magnesium Stat Lab 07/18/24 17:30 Completed Troponin I Stat Lab 07/18/24 17:30 Completed Medical Decision Narrative: 78-year-old female presents to the emergency department with a syncopal episode just prior to arrival, differential diagnose include but not limited to symptomatic anemia, vasovagal syncope, cardiogenic syncope, situational syncope, orthostatic hypotension, hypoglycemia, cardiac arrhythmia, electrolyte disturbance. I discussed patient case with the attending physician Dr. Enriquez Basic laboratory studies, EKG, troponin, magnesium level, orthostatics and CT head without contrast for further evaluation as characterization. I along with the attending physician reviewed the patient's EKG, NSR at 69 bpm MS interval within normal is QT interval within normal limits there is no STEMI. CBC is notable for erythrocytopenia at 3.86, hemoglobin hermetic within normal limits CMP notable for hyponatremia at 131, troponin within normal limits, I reviewed the patient CT head without contrast on the corresponding radiologic report no evidence of acute cranial abnormality. Orthostatic vitals are positive, reexamination of the patient at approximately 6:50 PM, patient has remained hemodynamically stable throughout her time in the emergency department, the patient family were concerned, I discussed possible observation admission with patient and family, shared decision making was utilized, admission was declined at this time I think this is appropriate, no further syncopal or presyncopal episodes at this time. Patient has no acute complaints with the exception of ongoing left arm pain from fracture. Strict ED return precautions given to the patient family the bedside patient and family are in agreement with the discharge plan/treatment plan. Follow-up with orthopedic provider as directed. I, Manny Enriquez, was present at the time of patient's arrival and agreed with the plan and management as above Critical Care <LUC Zarate - Last Filed: 07/18/24 18:55> Critical Care Time Critical Care Time: No
--- NOTE | 2024-07-18 17:28 | CT_ITS ---
PROCEDURE INFORMATION: Exam: CT Head Without Contrast Exam date and time: 07/18/2024 5:37 PM Age: 78 years old Clinical indication: Syncope and collapse; Additional info: Syncopal episode TECHNIQUE: Imaging protocol: Computed tomography of the head without contrast. Radiation optimization: All CT scans at this facility use at least one of these dose optimization techniques: automated exposure control; mA and/or kV adjustment per patient size (includes targeted exams where dose is matched to clinical indication); or iterative reconstruction. COMPARISON: CT HEAD/BRAIN WO CON 10/13/2023 5:21 PM FINDINGS: Brain: Periventricular white matter tract changes demonstrated. Mild-moderate prominence of the cortical sulci. Cerebral ventricles: No ventriculomegaly. Paranasal sinuses: Right frontal sinus inflammatory changes. Slight progression since 10/13/2023. Mastoid air cells: Visualized mastoid air cells are well aerated. Bones: Unremarkable. No acute fracture. Soft tissues: Unremarkable. IMPRESSION: No evidence of acute intracranial abnormality.
[2024-07-18 17:30] VITALS: BP 148/90; PULSE 66; O2SAT 96
[2024-07-18 17:34] VITALS: BP 142/90; BP 150/98; BP 161/90; PULSE 68; PULSE 72; PULSE 75
[2024-07-18 17:43] LABS: Basophils % 0.3 % (0.1-2.0); Eosinophils # 0.1 K/mm3 (0.0-0.4); Eosinophils % 1.5 % (0.1-12.0); Hematocrit 35.4 % (37.0-47.0); Lymphocytes # 1.2 K/mm3 (0.7-4.5); Lymphocytes % 12.2 % (10-50); Mean Corpuscular HGB Conc 33.9 g/dL (31.8-35.4); Mean Corpuscular Hemoglobin 31.1 pg (27.0-31.2); Mean Corpuscular Volume 91.7 fl (81-99); Mean Platelet Volume 7.1 fl (7.4-10.4); Monocytes # 0.4 K/mm3 (0.1-1.0); Monocytes % 4.6 % (1.7-9.3); Neutrophils # 7.7 K/mm3 (1.8-7.8); Neutrophils % 81.3 % (37.0-80.0); Platelet Count 362 K/mm3 (142-424); Red Blood Count 3.86 M/mm3 (4.20-5.40); Red Cell Distribution Width 13.8 % (11.5-17.5); White Blood Count 9.5 K/mm3 (4.8-10.8)
[2024-07-18 17:49] LABS: Alanine Aminotransferase 16 U/L (12-78); Albumin Level 3.9 g/dl (3.5-5.0); Albumin/Globulin Ratio 1.9 (1.1-1.8); Alkaline Phosphatase 71 U/L (38-126); Anion Gap 12.9 mEq/L (5-15); Aspartate Amino Transferase 24 U/L (14-36); Bilirubin,Total 0.4 mg/dl (0.2-1.3); Blood Urea Nitrogen 19 mg/dl (7-17); Calcium 9.3 mg/dl (8.4-10.2); Carbon Dioxide 22 mmol/L (22.0-30.0); Chloride 100 mmol/L (98-107); Creatinine Clearance Estimated 48 mL/min (50-200); Estimated Glomerular Filt Rate 54 ml/min (>60); GFR (African American) 65 ML/MIN (>60); Globulin 2.1 g/dL (1.3-3.2); Glucose 150 mg/dl (74-100); Magnesium 1.6 mg/dl (1.6-2.3); Potassium 3.9 mmoL/L (3.5-5.1); Sodium 131 mmol/L (136-145)
[2024-07-18 18:00] VITALS: BP 154/91; PULSE 65; O2SAT 95
[2024-07-18 18:05] LABS: Troponin I < 0.01 ng/ml (0.00-0.034)
[2024-07-18 18:30] VITALS: BP 161/86; PULSE 69; O2SAT 95
--- NOTE | 2024-07-18 18:38 | PC.NURSE ---
pt was given a water
--- NOTE | 2024-07-18 18:38 | PC.NURSE ---
PA @ bs speaking with pt and family
[2024-07-18 19:03] VITALS: BP 161/86; PULSE 70; RESP 18; TEMP 36.7; O2SAT 95
== END 2024-07-18 19:04 | disposition home or self-care (01) ==
LOC: ER 17:17
PROVIDERS: Physician Assistant; Emergency Provider Student in an Organized Health Care Education/Training Program; PCP Family Medicine
DX: R55 Syncope and collapse (principal)
CPT/HCPCS: 70450; 73000; 73030; 73060; 73080; 80053; 83735; 84484; 85025; 86803; 87389; 93005; 99285; J3010

== ENCOUNTER 2024-08-06 12:28 | Outpatient (CLI) | payer MEDICARE, SELFPAY ==
--- NOTE | 2024-08-06 12:31 | XR_ITS ---
FINAL REPORT CLINICAL HISTORY: fx of neck of humerus COMPARISON: 07/18/2024 FINDINGS: LEFT SHOULDER: 3 views of the left shoulder were obtained. There is a comminuted and impacted fracture of the humeral neck and head. No significant callus formation is identified. There appears to be a slight increase in the degree of impaction when compared to the prior examination. IMPRESSION: Comminuted and impacted fracture without significant callus formation. There appears to be a slight increase in the degree of impaction since the prior examination. Reviewed, Interpreted and Dictated by Devon Gordon III, MD Transcribed by Darleen Fuchs Authenticated and [facility]
== END 2024-08-06 23:59 | disposition home or self-care (01) ==
LOC: RAD 12:29
PROVIDERS: PCP Family Medicine; Visit Provider Physician Assistant Surgical
DX: S42.212A Unspecified displaced fracture of surgical neck of left humerus, initial encounter for closed fracture (principal)
CPT/HCPCS: 73030

== ENCOUNTER 2024-08-22 12:19 | Outpatient (CLI) | payer MEDICARE, SELFPAY ==
--- NOTE | 2024-08-22 12:23 | XR_ITS ---
FINAL REPORT CLINICAL HISTORY: left humerus fx COMPARISON: 08/06/2024 FINDINGS: Left shoulder Two views were obtained. There is a transverse impacted fracture of the humeral neck with moderate displacement. The degree of displacement is similar to previous. The fracture line remains evident. IMPRESSION: Stable transverse fracture of the humeral neck. Reviewed, Interpreted and Dictated by Anurag Burks MD Transcribed by Evy Herrera Authenticated and [facility]
== END 2024-08-22 23:59 | disposition home or self-care (01) ==
LOC: RAD 12:20
PROVIDERS: PCP Family Medicine; Visit Provider Physician Assistant Surgical
DX: M25.512 Pain in left shoulder (principal); S42.212A Unspecified displaced fracture of surgical neck of left humerus, initial encounter for closed fracture
CPT/HCPCS: 73060

== ENCOUNTER 2024-09-19 12:48 | Outpatient (CLI) | payer MEDICARE, SELFPAY ==
--- NOTE | 2024-09-19 12:53 | XR_ITS ---
FINAL REPORT CLINICAL HISTORY: left humerus fx COMPARISON: 08/22/2024 FINDINGS: Three views show a transverse fracture of the humeral neck with significant impaction rotational deformity. There is increased sclerosis at the fracture site indicative of fracture healing. There is no dislocation. The joint spaces appear normal. IMPRESSION: Partial healing proximal humerus fracture. Reviewed, Interpreted and Dictated by Anurag Burks MD Transcribed by Sridevi Stinson Authenticated and [facility]
== END 2024-09-19 23:59 | disposition home or self-care (01) ==
LOC: RAD 12:50
PROVIDERS: PCP Family Medicine; Visit Provider Physician Assistant Surgical
DX: M79.622 Pain in left upper arm (principal); S42.212A Unspecified displaced fracture of surgical neck of left humerus, initial encounter for closed fracture
CPT/HCPCS: 73060

== ENCOUNTER 2024-12-29 20:24 | Emergency (ER) | payer MEDICARE, SELFPAY ==
[2024-12-29 20:28] VITALS: BP 179/100; PULSE 86; RESP 18; TEMP 36.6; O2SAT 98; BMI 30.9
--- OUTSIDE RECORDS SUMMARY | 2024-12-29 20:39 | XMS_ITS | Continuity of Care Document ---
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 Name Role Phone VARINDER SINGLETON Unavailable VARINDER SINGLETON Primary Care VARINDER SINGLETON Primary Attending VARINDER SINGLETON Admitting ALLERGIES AND ADVERSE REACTIONS ALLERGIES AND ADVERSE REACTIONS Code System Allergy Substance Adverse Reaction Date Reaction (Severity) Comment Status Reported By Updated By No Known Allergies FAMILY HISTORY RELATION: Father Status: Cause of : Unknown Age at : Unknown SNOMED-CT Diagnosis Age At Onset [id number] Heart disease RELATION: Mother Status: LIVING SNOMED-CT Diagnosis Age At Onset [id number] Leukemia RESULTS Patient: CINTHYA Longoria Date of : November [birth year] LABORATORY RESULTS Information is not available LABORATORY NARRATIVE RESULTS Information is not available RADIOLOGY RESULTS ORDER 100: MRI SPINE LUMBAR WO (LOINC: [id number]) ORDER DATE: December 20, 2024 6:43:00 PM [facility] PERFORMING LAB: [address] [id number] Final Result Date: December 20, 2024 7:28:32 PM [address] [id number] Name: DELVIS MENDES Exam Date: 12/20/2024 : 1945 Age 79 years Gender: F Physician: VARINDER SINGLETON Facility: [facility] Facility HSV: Outpatient Exam: MRI SPINE LUMBAR WO EXAM: MRI SPINE LUMBAR WO CLINICAL INDICATION: Female, 79 years old. pain COMPARISON: None Sagittal and axial sequences acquired lumbar spine. No IV contrast. Mild motion artifact. FINDINGS: No marrow edema to indicate acute osseous abnormality. Normal vertebral body height. L1-2: Chronic disc degeneration with mild annular disc bulge and endplate osteophytes. No focal herniation or central canal stenosis. Mild bilateral facet hypertrophy. Mild left and moderate right neuroforaminal narrowing. L2-3: Normal disc space height. Decreased signal intensity of the disc indicative of chronic disc degeneration. No herniation or central canal stenosis. Facet and ligamentum flavum hypertrophy which results in mild bilateral neuroforaminal narrowing. L3-4: Normal disc space height. Chronic degenerative disc changes with mild annular bulge. Hypertrophy of the ligamentum flavum and facet joints with mild central canal stenosis. Mild bilateral neuroforaminal narrowing. L4-5: Grade 2 L4 anterolisthesis. Diffuse disc space narrowing and chronic degenerative disc changes. Chronic degenerative endplate changes. Status post post surgery with L4 and L5 pedicle screws. There is severe stenosis of the spinal canal at the L4-5 level primarily secondary to combination of the anterolisthesis and facet/ligamentum flavum hypertrophy. Severe right and moderate to severe left neural foraminal stenosis. L5-S1: Chronic degenerative disc and endplate changes. No disc herniation or central canal stenosis. Moderate to severe bilateral neuroforaminal stenosis. Conus medullaris is normal in signal intensity. No evidence of acute paraspinal soft tissue abnormality. IMPRESSION: No acute lumbar spine abnormality. PLIF at the L4-5 levels with bilateral pedicle screws. Focal severe central canal stenosis at the L4-5 level secondary to combination of grade 2 L4 anterolisthesis and hypertrophy of the ligamentum flavum and facet joints. Bilateral L4-5 and L5-S1 neuroforaminal stenosis. Electronically signed by: Charbel Terrell MD 12/20/2024 06:38 PM EDT Legally authenticated by KING CHARBEL 2024-12-20 15:28:32 Dictated By: CHARBEL TERRELL Transcribed By: Transcribed On: 12/20/2024 3:28 PM Electronically signed by: CHARBEL TERRELL 12/20/2024 Thank you for referring DELVIS MENDES to [facility]. Legally authenticated by KING CHARBEL 2024-12-20 15:28:32 PATHOLOGY NARRATIVE RESULTS Information is not available MICROBIOLOGY RESULTS No Micro Labs/Results Exist for Patient BLOOD ADMIN RESULTS Information is not available MEDICATIONS HOME MEDICATIONS Status RXNORM NDC Medication Dose Route Frequency Dates Comments Reported By Updated By Drug Treatment Unknown DISCHARGE MEDICATIONS Status RXNORM NDC Medication Dose Route Frequency Dates Comments Physician Updated By No Discharge Medication Info rmation Available INPATIENT MEDICATIONS Status RXNORM NDC Medication Dose Route Frequency Rat e Quantity Dates Comments Physician Updated By No Inpatient Medication Info rmation Available SOCIAL HISTORY SOCIAL HISTORY SNOMED-CT Social History Element Description Effective Dates Offered Cessation Comment UpdatedBy [id number] Historical Tobacco smoking status Former Smoker Yes [id number] on December 29, 2015 3:17:55 PM [place] SOCIAL HISTORY - Gender Sex: Female SOCIAL HISTORY - Status : status i nformation is not available Intention in Next Year: intention information is not available SOCIAL HISTORY - Sexual Behavior Sexual Orientation Gender Identity SNOMED-CT Description SNO MED -CT Description Activity Level No of Partners Partner Type UpdatedBy Information is not available HEALTH CONCERNS Problems Concern Status Health Concern problem infor mation not available. Smoking Status Status Years Used Consumed packs p er day Health Concern smoking histo ry information not available. Family History Concern Status Health Concern family histor y information not available. ENCOUNTERS ENCOUNTER INFORMATION Reason for Visit M54.50 LOW BACK PAIN Admission December 20, 2024 7:51:[address] [id number] Discharge December 20, 2024 7:51:00 PM [facility] DI SCHARGED TO HOME OR SELF CARE ENCOUNTER DIAGNOSES Notes information is not daniel ilable. Code System Diagnosis Onset Date Diagnosis information is not available. ABSTRACT DIAGNOSES Code System Diagnosis Updated By M54.9 ICD10 DORSALGIA, UNSPECIFIED [id number] on December 23, 2024 12:39:23 PM [facility] M48.061 ICD10 SPINAL STENOSIS, LUMBAR REGION WITHOUT NEUROGENIC CLAUDICATION [id number] on December 23, 2024 12:39:23 PM [facility] M48.07 ICD10 SPINAL STENOSIS, LUMBOSACRAL REGION [id number] on December 23, 2024 12:39:23 PM [facility] M43.16 ICD10 SPONDYLOLISTHESIS, LUMBAR RE GION [id number] on December 23, 2024 12:39:23 PM [facility] M47.816 ICD10 SPONDYLOSIS WITH OUT MYELOPATHY OR RADICULOPATHY, LUMBAR REGION [id number] on December 23, 2024 12:39:23 PM UTC M54.9 ICD10 DORSALGIA, UNSPECIFIED [id number] on December 23, 2024 12:39:23 PM UTC CARE TEAM Care Scraper Loader Operator Role VARINDER SINGLETON Referring VARINDER SINGLETON Primary Care VARINDER SINGLETON Primary Attending VARINDER SINGLETON Admitting CARE TEAM CARE scada engineer Role on Team Status Start Date End Date Update d By MANI MALLORY PCP normal December 19, 2024 6:10:59 PM UTC December 20, 2024 7:51:00 PM UTC [id number] on December 19, 2024 6:10:59 PM UTC MANI MALLORY Referring normal December 19, 2024 6:10:59 PM UTC December 20, 2024 7:51:00 PM UTC [id number] on December 19, 2024 6:10:59 PM UTC MANI MALLORY Attending normal December 19, 2024 6:10:59 PM UTC December 20, 2024 7:51:00 PM UTC [id number] on December 19, 2024 6:10:59 PM UTC MANI MALLORY Admitting normal December 19, 2024 6:10:59 PM UTC December 20, 2024 7:51:00 PM UTC [id number] on December 19, 2024 6:10:59 PM UTC
--- NOTE | 2024-12-29 20:47 | HMH.EDGENADL ---
Discharge Plan Disposition Patient Disposition: Home, Self-Care Condition: Fair Prescriptions Prescriptions: New oxycodone 5 mg tablet 5 mg PO Q6H PRN (Reason: pain) 3 Days Qty: 12 0RF prednisone 20 mg tablet 20 mg PO DAILY 3 Days Qty: 3 0RF Discontinued hydrocodone-acetaminophen 7.5-325 mg tablet 1 tab PO Q6H PRN oxycodone 5 mg tablet 5 mg PO Q6H PRN (Reason: pain) Qty: 10 0RF No Action coenzyme Q10 100 mg capsule 100 mg PO DAILY Excedrin Migraine 250-250-65 mg tablet 2 tab PO Q4-6H PRN acetaminophen 500 mg capsule 1,000 mg PO ONCE chlorpheniramine maleate [Allergy Relief(chlorpheniramn)] 4 mg tablet 4 mg PO Q8H PRN Rx Instructions: do not exceed 2 doses per 24 hrs meloxicam 15 mg tablet 15 mg PO DAILY methocarbamol 500 mg tablet 500 mg PO Q8H PRN (Reason: muscle spasm) Qty: 30 1RF lisinopril-hydrochlorothiazide 20-12.5 mg Tablet 1 tab PO DAILY gabapentin 300 mg Capsule 300 mg PO BID pravastatin 40 mg tablet 40 mg PO HS omeprazole 40 mg capsule,delayed release(DR/EC) 40 mg PO BID ferrous sulfate [Iron (ferrous sulfate)] 325 mg (65 mg iron) tablet 325 mg PO .qod Rx Instructions: Take 1 tab every other day Referrals Follow up/Referrals: Placido Mercado [Primary Care Provider] - See instructions Activity Restrictions/Add. Instructions Additional Instructions/Restrictions: As we discussed, I prescribed different pain medications for you to use until your appointment on Monday. I also prescribed 3 days of steroids. Please discontinue your tramadol. Please return with any new or worsening symptoms. Clinical Impressions Clinical Impression: Spinal stenosis of lumbar region with neurogenic claudication Instructions Patient Instructions: DI for Low Back Pain Print Language Print Language: Pashto Discharge ED Provider: Hernando Bach Adult HPI <LUC Berumen - Last Filed: 12/29/24 22:03> General Chief complaint: Back Pain/Injury Stated complaint: back and leg pain from pinched nerve in back Time Seen by Provider: 12/29/24 20:47 Mode of Arrival: Wheelchair Source of Information: Patient Description of Symptoms (Recalled from ER Triage Doc. by RN): Pt presents with family for evaluation of right sided back pain that radiates down both of her legs. Pt has an appointment with Dr. Peterson at [facility] on monday for injections. PT states the pain started flaring up 3 weeks ago, and then the pain has progressively become worse. History of Present Illness HPI narrative: Patient presents for evaluation of back pain. Patient has a longstanding history of degenerative disc and spine disease. She has had previous back surgery. Approximately 3 weeks ago her pain started flaring up again and she went and saw an orthopedic spine surgeon. He ordered an MRI which she had last week that shows neuroforaminal stenosis and she has a tentative plan for epidural injection next Monday. She last saw the orthopedic surgeon on this past Monday. Patient states however she has been given tramadol and Zanaflex and it has not been helping. Her pain is gotten to the point where she has no position of comfort. She has no numbness no tingling no loss of motor or sensory no loss of bowel or bladder or saddle anesthesia. She denies chest pain shortness of breath fever chills hemoptysis hematochezia melena reports nausea but no vomiting or diarrhea. Related Data Home Medications ?Medication ?Instructions ?Recorded ?Confirmed gabapentin 300 mg capsule 300 mg PO BID Restless leg syndrome 12/11/22 09/19/24 lisinopril 20 1 tab PO DAILY High blood pressure 12/11/22 09/19/24 mg-hydrochlorothiazide 12.5 mg tablet omeprazole 40 mg capsule,delayed 40 mg PO BID Acid reflux 12/12/22 09/19/24 release pravastatin 40 mg tablet 40 mg PO HS Cholesterol 12/12/22 09/19/24 ferrous sulfate 325 mg (65 mg 325 mg PO .qod Supplement 02/07/23 09/19/24 iron) tablet (Iron (ferrous sulfate)) acetaminophen 500 mg capsule 1,000 mg PO ONCE 04/05/23 09/19/24 agjiope-qfvvnjhigpacd-dvopufse 250 2 tab PO Q4-6H PRN 04/05/23 09/19/24 mg-250 mg-65 mg tablet (Excedrin Migraine) chlorpheniramine maleate 4 mg 4 mg PO Q8H PRN 04/05/23 09/19/24 tablet (Allergy Relief (chlorpheniramine)) coenzyme Q10 100 mg capsule 100 mg PO DAILY 04/05/23 09/19/24 meloxicam 15 mg tablet 15 mg PO DAILY 05/17/23 09/19/24 Previous Rx's ?Medication ?Instructions ?Recorded methocarbamol 500 mg tablet 500 mg PO Q8H PRN muscle spasm #30 08/22/24 tabs oxycodone 5 mg tablet 5 mg PO Q6H PRN pain 3 days #12 12/29/24 tabs prednisone 20 mg tablet 20 mg PO DAILY 3 days #3 tabs 12/29/24 Allergies Allergy/AdvReac Type Severity Reaction Status Date / Time No Known Allergies Allergy Verified 09/19/24 13:16 [facility] <LUC Berumen - Last Filed: 12/29/24 22:03> [facility] Disclaimer: The information contained in this section may have been updated after the patient was seen, as this information can be updated by other users. Medical History Hammertoe of left foot Left foot drop History of back pain Osteoarthritis History of gastroesophageal reflux (GERD) Hemorrhoid Hyperlipidemia Hypertension History of anemia Cataract Surgical History History of colonoscopy Family History Other Family history of diabetes mellitus type II Family history of hyperlipidemia Family history of hypertension Family history of leukemia Social History Smoking Status: Never smoker alcohol intake: never substance use type: denies use current occupational status: unemployed Travel in the last 8 weeks?: None household members: children housing: house lives independently: No marital status: well-balanced diet: daily or most days physical activity: none Have you lived/traveled outside US in past 30 days?: No Contact w/someone who lives/traveled outside US past 30 days?: No Exposure to someone with infectious disease in past 14 days?: No Do you have a fever (greater than 100.4 F or 38 C)?: No Have you tested positive for COVID-19?: No Exposed to someone with COVID-19 in past 14 days?: No Do you have a sore throat?: No Do you have a cough?: No Do you have any weakness?: No Do you have any diarrhea?: No Are you experiencing any unusual bleeding?: No Do you have any muscle aches/pain?: No Do you have any abdominal pain?: No Are you experiencing loss of taste or smell?: No Other Medical History Have you received the Flu Vaccine for this season: No Have you received the Pneumonia Vaccine: Yes <LUC Berumen - Last Filed: 12/29/24 22:03> ROS Obtained: Yes Systems reviewed as appropriate & no additional complaints except as documented Physical Exam <LUC Berumen - Last Filed: 12/29/24 22:03> General General appearance: alert and in no apparent distress Respiratory Respiratory exam: Present normal lung sounds bilaterally Cardiovascular Cardiovascular exam: Present regular rate Neurological Exam Neurological exam: Present alert and oriented X3 Medical Decision Making <LUC Berumen - Last Filed: 12/29/24 22:03> Medical Records Medical records reviewed: Yes I reviewed the patient's medical records. Screening: Per USPSTF and CDC recommendations, given the prevalence of disease in our region, it is our hospital?s policy to screen for HIV and viral Hepatitis for all patients aged 18 and over and those with ongoing risk factors. [place] Inquiry Pt receiving controlled substance: No Vital Signs: 12/29/24 20:28 12/29/24 23:41 Temperature 98 F 98.9 F Temperature Source Oral Pulse Rate 88 Pulse Rate [Right] 86 Respiratory Rate 18 20 Blood Pressure 120/75 Blood Pressure [Right Arm] 179/100 H Blood Pressure Mean [Right Arm] 126 Blood Pressure Source [Right Arm] Automatic Cuff Blood Pressure Position [Right Arm] Sitting 02 Sat by Pulse Oximetry 98 Oxygen Delivery Method Room Air Room Air Lab Data Lab results reviewed: Yes I reviewed the patient's lab results. Lab Results 12/29/24 21:34: Urine Color Yellow, Urine Appearance Clear, Urine pH 7.0, Ur Specific Clarence 1.010, Urine Protein Negative, Urine Glucose (UA) Negative, Urine Ketones Trace, Urine Blood Negative, Urine Nitrate Negative, Urine Bilirubin Negative, Urine Urobilinogen 0.2, Ur Leukocyte Esterase Negative, Urine RBC None, Urine WBC None, Ur Squamous Epith Cells Occasional, Urine Bacteria None 12/29/24 21:42: WBC 5.4, RBC 4.05 L, Hgb 11.8 L, Hct 36.0 L, MCV 88.9, MCH 29.1, MCHC 32.8, RDW 13.4, Plt Count 350, MPV 8.4, Neut % (Auto) 68.0, Lymph % (Auto) 16.7, [place] % (Auto) 8.3, Eos % (Auto) 6.1, Baso % (Auto) 0.7, Neut # (Auto) 3.7, Lymph # (Auto) 0.9, [place] # (Auto) 0.5, Eos # (Auto) 0.3, Baso # (Auto) 0.0, Sodium 133 L, Potassium 4.3, Chloride 100, Carbon Dioxide 25, Anion Gap 12.3, BUN 21 H, Creatinine 1.00, Estimated Creat Clear 59, Estimated GFR 54 L, Est GFR ( Amer) 65, Glucose 105 H, Calcium 10.3 H, Total Bilirubin 0.3, AST 27, ALT 18, Alkaline Phosphatase 101, Total Protein 7.3, Albumin 4.5, Globulin 2.8, Albumin/Globulin Ratio 1.6, Procalcitonin 0.058 12/29/24 21:42 12/29/24 21:42 Orders (Tests/Meds): ED MEDICATIONS Discontinued Medications Generic Name Dose Route Start Last Admin Trade Name Nelson PRN Reason Stop Dose Admin Hydromorphone HCl 0.5 mg 12/29/24 21:05 12/29/24 21:36 Hydromorphone 2mg/Ml Syringe IV 12/29/24 21:06 0.5 mg ONCE ONE Administration Hydromorphone HCl 0.5 mg 12/29/24 22:09 12/29/24 22:36 Hydromorphone 4 Mg/Ml Syringe IV 12/29/24 22:10 0.5 mg ONCE ONE Administration Ketorolac Tromethamine 15 mg 12/29/24 21:05 12/29/24 21:36 Ketorolac 30mg/Ml Vial IV 12/29/24 21:06 15 mg ONCE ONE Administration Methylprednisolone Sodium Succinate 125 mg 12/29/24 21:05 12/29/24 21:39 Methylprednisolone Sod Succ 125mg Vial IV 12/29/24 21:06 125 mg ONCE ONE Administration Ondansetron HCl 4 mg 12/29/24 21:05 12/29/24 21:39 Ondansetron 4mg/2ml Vial IV 12/29/24 21:06 4 mg ONCE ONE Administration Oxycodone HCl 5 mg 12/29/24 23:30 12/29/24 23:31 Oxycodone 5mg Immediate Release Tablet PO 12/29/24 23:31 5 mg ONCE ONE Administration ORDERS Category Date Time Status CBC w/Auto Diff [Complete Blood Count Auto Diff] Stat Lab 12/29/24 21:42 Completed CMP [Comprehensive Metabolic Panel] Stat Lab 12/29/24 21:42 Completed Procalcitonin Stat Lab 12/29/24 21:42 Completed UA [Urinalysis and Microscopic] Stat Lab 12/29/24 21:34 Completed Medical Decision Narrative: In summary patient is a 79-year-old female who presents to the emergency department for evaluation of spinal stenosis with neurogenic claudication worsening progressively over the last 3 weeks. Patient is hypertensive on arrival with a blood pressure 179/100 but heart rate of 86 normal sinus rhythm on bedside monitor breathing 18 times a minute satting at 98% on room air upon arrival, afebrile at 98. Physical exam reveals a well-nourished well-developed uncomfortable appearing 79-year-old female who is in a moderate amount of pain but otherwise in no acute distress. Patient has tenderness to palpation in the bilateral lumbar paraspinous area with radiation down both legs right greater than left. She does retain full range of motion is neurovascularly intact distally. She can move all 4 extremities without focal neurologic deficit.. Differential diagnosis includes worsening spinal stenosis versus worsening sciatica. Initial workup will be conducted with hematologic labs urinalysis. Initial interventions include Solu-Medrol Toradol Zofran as patient is already taken a muscle relaxer tramadol and Tylenol. Initial workup ordered and pending at the time of handoff to Dr. Hernando Bach at 2200 hrs. <Hernando Bach MD - Last Filed: 12/31/24 20:32> Vital Signs: 12/29/24 20:28 12/29/24 23:41 Temperature 98 F 98.9 F Temperature Source Oral Pulse Rate 88 Pulse Rate [Right] 86 Respiratory Rate 18 20 Blood Pressure 120/75 Blood Pressure [Right Arm] 179/100 H Blood Pressure Mean [Right Arm] 126 Blood Pressure Source [Right Arm] Automatic Cuff Blood Pressure Position [Right Arm] Sitting 02 Sat by Pulse Oximetry 98 Oxygen Delivery Method Room Air Room Air Lab Data Lab Results 12/29/24 21:34: Urine Color Yellow, Urine Appearance Clear, Urine pH 7.0, Ur Specific Clarence 1.010, Urine Protein Negative, Urine Glucose (UA) Negative, Urine Ketones Trace, Urine Blood Negative, Urine Nitrate Negative, Urine Bilirubin Negative, Urine Urobilinogen 0.2, Ur Leukocyte Esterase Negative, Urine RBC None, Urine WBC None, Ur Squamous Epith Cells Occasional, Urine Bacteria None 12/29/24 21:42: WBC 5.4, RBC 4.05 L, Hgb 11.8 L, Hct 36.0 L, MCV 88.9, MCH 29.1, MCHC 32.8, RDW 13.4, Plt Count 350, MPV 8.4, Neut % (Auto) 68.0, Lymph % (Auto) 16.7, [place] % (Auto) 8.3, Eos % (Auto) 6.1, Baso % (Auto) 0.7, Neut # (Auto) 3.7, Lymph # (Auto) 0.9, [place] # (Auto) 0.5, Eos # (Auto) 0.3, Baso # (Auto) 0.0, Sodium 133 L, Potassium 4.3, Chloride 100, Carbon Dioxide 25, Anion Gap 12.3, BUN 21 H, Creatinine 1.00, Estimated Creat Clear 59, Estimated GFR 54 L, Est GFR ( Amer) 65, Glucose 105 H, Calcium 10.3 H, Total Bilirubin 0.3, AST 27, ALT 18, Alkaline Phosphatase 101, Total Protein 7.3, Albumin 4.5, Globulin 2.8, Albumin/Globulin Ratio 1.6, Procalcitonin 0.058 Orders (Tests/Meds): ED MEDICATIONS Discontinued Medications Generic Name Dose Route Start Last Admin Trade Name Freq PRN Reason Stop Dose Admin Hydromorphone HCl 0.5 mg 12/29/24 21:05 12/29/24 21:36 Hydromorphone 2mg/Ml Syringe IV 12/29/24 21:06 0.5 mg ONCE ONE Administration Hydromorphone HCl 0.5 mg 12/29/24 22:09 12/29/24 22:36 Hydromorphone 4 Mg/Ml Syringe IV 12/29/24 22:10 0.5 mg ONCE ONE Administration Ketorolac Tromethamine 15 mg 12/29/24 21:05 12/29/24 21:36 Ketorolac 30mg/Ml Vial IV 12/29/24 21:06 15 mg ONCE ONE Administration Methylprednisolone Sodium Succinate 125 mg 12/29/24 21:05 12/29/24 21:39 Methylprednisolone Sod Succ 125mg Vial IV 12/29/24 21:06 125 mg ONCE ONE Administration Ondansetron HCl 4 mg 12/29/24 21:05 12/29/24 21:39 Ondansetron 4mg/2ml Vial IV 12/29/24 21:06 4 mg ONCE ONE Administration Oxycodone HCl 5 mg 12/29/24 23:30 12/29/24 23:31 Oxycodone 5mg Immediate Release Tablet PO 12/29/24 23:31 5 mg ONCE ONE Administration ORDERS Category Date Time Status CBC w/Auto Diff [Complete Blood Count Auto Diff] Stat Lab 12/29/24 21:42 Completed CMP [Comprehensive Metabolic Panel] Stat Lab 12/29/24 21:42 Completed Procalcitonin Stat Lab 12/29/24 21:42 Completed UA [Urinalysis and Microscopic] Stat Lab 12/29/24 21:34 Completed Medical Decision Narrative: In summary patient is a 79-year-old female who presents to the emergency department for evaluation of spinal stenosis with neurogenic claudication worsening progressively over the last 3 weeks. Patient is hypertensive on arrival with a blood pressure 179/100 but heart rate of 86 normal sinus rhythm on bedside monitor breathing 18 times a minute satting at 98% on room air upon arrival, afebrile at 98. Physical exam reveals a well-nourished well-developed uncomfortable appearing 79-year-old female who is in a moderate amount of pain but otherwise in no acute distress. Patient has tenderness to palpation in the bilateral lumbar paraspinous area with radiation down both legs right greater than left. She does retain full range of motion is neurovascularly intact distally. She can move all 4 extremities without focal neurologic deficit.. Differential diagnosis includes worsening spinal stenosis versus worsening sciatica. Initial workup will be conducted with hematologic labs urinalysis. Initial interventions include Solu-Medrol Toradol Zofran as patient is already taken a muscle relaxer tramadol and Tylenol. Initial workup ordered and pending at the time of handoff to Dr. Hernando Bach at 2200 hrs. I was consulted by the BALTAZAR, and we discussed the complexity of the problems being addressed.I approved the treatment and management plan for this patient?s care in the Emergency Department, thus performing a substantive portion of the medical decision making.Signed, Hernando Bach MD [facility] Critical [facility] <LUC Berumen - Last Filed: 12/29/24 22:03> Critical Care Time Critical Care Time: No
[2024-12-29 21:36] LABS: Microscopic, Urine URINE MICROSCOPIC (MICROSCOPIC)
[2024-12-29] MEDS: HYDROMORPHONE 2MG/ML SYRINGE 0.5 MG IV (21:36)
[2024-12-29] MEDS: KETOROLAC 30MG/ML VIAL 15 MG IV (21:36)
[2024-12-29] MEDS: ONDANSETRON 4MG/2ML VIAL 4 MG IV (21:39)
[2024-12-29] MEDS: METHYLPREDNISOLONE SOD SUCC 125MG VIAL 125 MG IV (21:39)
[2024-12-29 21:40] LABS: Appearance,Urine CLEAR (Clear); Bilirubin,Urine Negative (Negative); Blood, Urine Negative (Negative); Color,Urine YELLOW (Yellow); Glucose,Urine (UA) Negative (Negative); Ketones,Urine TRACE (Negative); Leukocyte Esterase,Urine Negative (Negative); Nitrate,Urine Negative (Negative); Protein,Urine Negative (Negative); Urobilinogen,Urine 0.2 EU/dl (0.2)
[2024-12-29 21:47] LABS: Basophils % 0.7 % (0.1-2.0); Eosinophils # 0.3 Kmm3 (0.0-0.4); Eosinophils % 6.1 % (0.1-12.0); Hemoglobin 11.8 g/dL (12.2-16.2); Lymphocytes # 0.9 K/mm3 (0.7-4.5); Lymphocytes % 16.7 % (10-50); Mean Corpuscular HGB Conc 32.8 g/dL (31.8-35.4); Mean Corpuscular Hemoglobin 29.1 pg (27.0-31.2); Mean Corpuscular Volume 88.9 fl (81-99); Mean Platelet Volume 8.4 fl (7.4-10.4); Monocytes # 0.5 K/mm3 (0.1-1.0); Monocytes % 8.3 % (1.7-9.3); Neutrophils # 3.7 K/mm3 (1.8-7.8); Nucleated Red Blood Cells # 0 10^3/uL; Nucleated Red Blood Cells % 0 %; Platelet Count 350 K/mm3 (142-424); Red Blood Count 4.05 M/mm3 (4.20-5.40); Red Cell Distribution Width 13.4 % (11.5-17.5); Red Cell Distribution Width-SD 43.8 fL; White Blood Count 5.4 K/mm3 (4.8-10.8)
[2024-12-29 21:51] LABS: Chloride 100 mmol/L (98-107)
[2024-12-29 21:52] LABS: Albumin Level 4.5 g/dl (3.5-5.0); Sodium 133 mmol/L (136-145)
[2024-12-29 21:52] LABS: Squamous Epithelial Cell,Urine Occasional #/hpf (0-5)
[2024-12-29 21:54] LABS: Alanine Aminotransferase 18 U/L (12-78); Aspartate Amino Transferase 27 U/L (14-36); Blood Urea Nitrogen 21 mg/dl (7-17); Carbon Dioxide 25 mmol/L (22.0-30.0); Creatinine Clearance Estimated 59 mL/min (50-200); Estimated Glomerular Filt Rate 54 ml/min (>60); GFR (African American) 65 ML/MIN (>60)
[2024-12-29 21:55] LABS: Albumin/Globulin Ratio 1.6 (1.1-1.8); Alkaline Phosphatase 101 U/L (38-126); Bilirubin,Total 0.3 mg/dl (0.2-1.3); Calcium 10.3 mg/dl (8.4-10.2); Globulin 2.8 g/dL (1.3-3.2); Glucose 105 mg/dl (74-100); Total Protein,Serum 7.3 g/dl (6.3-8.2)
[2024-12-29 22:07] LABS: Anion Gap 12.3 mEq/L (5-15); Potassium 4.3 mmoL/L (3.5-5.1)
[2024-12-29 22:22] LABS: Procalcitonin 0.058 ng/mL (0.0-2.0)
[2024-12-29] MEDS: OXYCODONE 5MG IMMEDIATE RELEASE TABLET 5 MG PO (23:31)
[2024-12-29 23:41] VITALS: BP 120/75; PULSE 88; RESP 20; TEMP 37.2; O2SAT 99
== END 2024-12-29 23:43 | disposition home or self-care (01) ==
PROVIDERS: Physician Assistant; Emergency Provider Emergency Medicine; PCP Family Medicine
DX: M48.062 Spinal stenosis, lumbar region with neurogenic claudication (principal)
CPT/HCPCS: 80053; 81001; 84145; 85025; 96374; 96375; 96376; 99285; J1171; J1885; J2405; J2919

== ENCOUNTER 2025-03-05 10:59 | Outpatient (POV) | payer MEDICARE, SELFPAY ==
--- OUTSIDE RECORDS SUMMARY | 2025-03-05 11:01 | XMS_ITS ---
Author Name Auto Generated, Auto Generated Organization [facility] Address [address] [place] [address] Phone [phone] Care Team Providers Care Flexible Babysitter Name Role Phone Tasia Ward Unavailable Functional Status No Results Mental Status No Results Allergies and Intolerances Name Onset Date Reaction Severity No Known Drug Allergies (Allergy) MonFeb 10 08: 20:00 EDT 2024 Encounters Program Name Primary Diagnosis Admission Date/Time Dis charge Date/Time null MonFeb 06 20:00:00 EDT 2024 Medications Medication Directions Start Date End Date gabapentin 300 mg capsule 1 Capsule Oral 2 Times Daily Indication: n/a MonFeb 07 00:00:00 EDT 2024 oxyCODONE 10 mg tablet 1 Tablet Oral PRN Indication: pain; 1 po q4h prn MonFeb 07 00:00:00 EDT 2024 Problems No Known Problems Procedures Procedure Date Practitioner Name Location Notes Documentation of Current Medications MonFeb 10 00:00:00 EDT 2024 Social History Social History Observation Description Date Smoking Status Unknown if ever smoked Mon 6 00:00:00 EDT 2024 Sex Female MonNov 08 00:00 :00 EST 1946 Reason for Referral
--- OUTSIDE RECORDS SUMMARY | 2025-03-05 11:02 | XMS_ITS | Clinical Summary ---
Author Organization [facility] Address [address] [place] [address] Care Team Providers Care Underwear Hemmer Name Role Phone Placido Mercado MD Primary Care Provider [phone] Allergies No known active allergies Medications gabapentin (Neurontin) 300 MG capsule Take 1 capsule (300 mg) by mouth 2 (two) times a day. Active lisinopril-hydr oCHLOROthiazide 20-12.5 MG tablet Take 1 tablet by mouth 1 (one) time each day. Active meloxicam (Mobic) 15 MG tablet Take 1 tablet (15 mg) by mouth 1 (one) time each day. Active omeprazole (PriLOSEC) [address] capsule Take 1 capsule (40 mg) by mouth 2 (two) times a day. Do not crush or chew. Active pravastatin (Pravachol) 40 MG tablet Take 1 tablet (40 mg) by mouth every night. Active Homeopathic Products (Restful Legs PM) sublingual tablet Place 1 tablet under the tongue at night if needed. Active acetaminophen (Tylenol) 500 MG tablet Take 2 tablets (1,000 mg) by mouth every 6 (six) hours if needed. Active chlorpheniramin e (Chlor-Trimeton ) 4 MG tablet Take 1 tablet (4 mg) by mouth every 6 (six) hours if needed for allergies. Active aspirin-acetami nophen-caffeine (Excedrin Migraine) 250-250-65 MG tablet Take 1 tablet by mouth every 6 (six) hours if needed for headaches. Active HYDROcodone-edith taminophen (Frederick) 7.5-325 MG tablet 1 tablet (7.5 mg of hydrocodone) every 4 (four) hours if needed for severe pain. Active Coenzyme Q10 100 MG tablet Take 30 mg by mouth 1 (one) time each day. Active Active Problems Problem Noted Date Diagnosed Date Obesity (BMI 35.0-39.9 without comorbidity) 10/05 HTN (hypertension) 10/18/2023 Gastroesophageal reflux disease 10/18/2023 Resolved Problems Problem Noted Date Diagnosed Date Resolved Date Syncope, unspecified syncope type 10/14/2023 10/23/2023 Social History Tobacco Use Types Packs/Day Years Used Date Smoking Tobacco: Never Smokeless Tobacco: Never Tobacco Cessation:Counseling Given: Not Answered Alcohol Use Standard Drinks/Week Comments Never 0 (1 standard drink = 0.6 oz pur e alcohol) Humiliation, Afraid, Rape, and Kick questionnair e Answer Date Recorded Within the last year, have y ou been afraid of your partner or ex-partner? Patient declined 10/16/2023 Within the last year, have y ou been humiliated or emotionally abused in other ways by your partner or ex-partner? Patient declined 10/16/2023 Within the last year, have y ou been kicked, hit, slapped, or otherwise physically hurt by your partner or ex-partner? Patient declined 10/16/2023 Sexually Abused Not on file 10/16/2023 Hunger Vital Sign Answer Date Recorded Within the past 12 months, y ou worried that your food would run out before you got the money to buy more. Never true 10/16/19 24 Within the past 12 months, t he food you bought just didn't last and you didn't have money to get more. Never true 10/16/2023 PRAPARE - Transportation Answer Date Re corded In the past 12 months, has l ack of transportation kept you from medical appointments or from getting medications? No 10/05 In the past 12 months, has l ack of transportation kept you from meetings, work, or from getting things needed for daily living? No 10/16/2023 Housing Stability Vital Sign Answer David e Recorded In the last 12 months, was t here a time when you were not able to pay the mortgage or rent on time? No 10/16/2023 In the last 12 months, how many places have you lived? 1 10/16/2023 In the last 12 months, was t here a time when you did not have a steady place to sleep or slept in a senior care (including now)? No 10/16/2023 Utilities Answer Date Recorded In the past 12 months has th e electric, gas, oil, or water company threatened to shut off services in your home? No 10/16/2023 Comments No Sex and Gender Information Value Date Recorded Sex Assigned at Not on file Legal Sex Female 8:52 PM EDT Gender Identity Not on file Sexual Orientation Not on file Last Filed Vital Signs Vital Sign Reading Time Taken Comments Blood Pressure 134/78 10/23/2023 9:00 AM EST Pulse 82 10/23/2023 9:00 AM EST Temperature 36.5 C (97.7 F) 10/23/2023 9:00 AM EST Respiratory Rate 16 10/23/2023 9:00 AM EST Oxygen Saturation 93% 10/23/2023 9:00 AM EST Inhaled Oxygen Concentration - - Weight 87.9 kg (193 lb 12.6 oz) 10/19/2023 5:53 AM EST Height 160 cm (5' 2.99 ) 10/16/2023 8:00 AM EST Body Mass Index 34.34 10/16/2023 8:00 AM EST Plan of Treatment Health Maintenance Due Date Last Done Comments [facility]-Bone Density Scan 1945 [facility]-Depression Screening 1945 [facility]-Medicare Annual Wellness (AWV) 1945 [facility]-/Child/Adol SDOH Screenings 1945 [facility]- SDOH Screenings 11/08/1965 [facility]-Adult SDOH Screenings 11/08/1965 [facility]-DTaP,Tdap,and Td Vaccine s (1 - Tdap) 11/08/1966 [facility]-Zoster Vaccines (1 of 2) 11/08/1997 [facility]-Pneumococcal Vaccine: 50 + Years (2 of 2 - PCV) 02/18/2022 02/18/2021 [facility]-RSV Vaccine: 60+ Years o r (1 - 1-dose 75+ series) 11/08/2022 SDS-JRVVB-10 Vaccine ( - season) 2024 07/14/2021, 12/11/2020, 11/10/2020 [facility]-Influenza Vaccine (Seaso n Ended) 2025 [facility]-Hepatitis A Vaccines Aged Out 04/25/2019 No longer eligible based on patient's age to complete this topic [facility]-Diabetes: Hemoglobin A1C Discontinued 05/2024, 05/13/2022 [facility]-Obesity Intervention Completed 10/13/2023 [facility]-Hepatitis C Screening Completed 2023, 10/13/2023 Sigmoidoscopy Discontinued 10/18/2023 [facility]-Colorectal Cancer Screening Discontinued CT Colonography Discontinued Colonoscopy Discontinued FIT-DNA Discontinued FIT Discontinued FOBT Discontinued HPV Vaccines Aged Out No longer eligi ble based on patient's age to complete this topic [facility]-HIB Vaccines Aged Out No longer e ligible based on patient's age to complete this topic [facility]-IPV Vaccines Aged Out No longer e ligible based on patient's age to complete this topic [facility]-Rotavirus Vaccines Aged Out No lo nger eligible based on patient's age to complete this topic Procedures Procedure Name Priority Date/Time Associated Diagnosis Comments FLEXIBLE SIGMOIDOSCOPY Routine 1:24 PM EST Colitis ACUTE HEPATITIS PANEL Routine 10/15/2023 12:57 AM EST HEMOGLOBIN A1C Add-On 10/13/2023 11:49 PM EST from Last 3 Months or Most Recently Relevant to Health Maintenance Results * Flexible Sigmoidoscopy (10/18/2023 1:24 PM EST) Anatomical Region Laterality Modality Endoscopy Narrative 10/18/2023 1:42 PM EST Table formatting from the original result was not included. Impression: Abnormal mucosa in the sigmoid colon. A linear ulceration with clean base measuring 10cm in length was encountered in the sigmoid colon, 30 cm from anal verge. Biopsies obtained with cold forceps for histology. An additional ulceration was seen proximal to this. Procedure was aborted at this extent due to inflammation and poor bowel preparation. Abnormal mucosa in the rectum. A 25mm ulceration with clean base was encountered in the rectum. Biopsies were obtained with cold forceps for histology. Recommendations Await pathology results. Do not replace bowel management system. Return to inpatient ramires. Findings and recommendations discussed with patient and primary service. Indication Colitis Medications See anesthesia record for anesthesia administered medications. Staff Staff Role Kristine Mcleod Endo Distributing Clerk Jade Vale, POLISHER BRASS Sara Shepard, RN Endo Nurse Dipika Najera, ANN Endo Nurse Castillo Cartagena MD Anesthesiologist Melisa Santo, DO Proceduralist Tres Dao MD Proceduralist Preprocedure A history and physical has been performed, and patient medication allergies have been reviewed. The patient's tolerance of previous anesthesia has been reviewed. The risks and benefits of the procedure and the sedation options and risks were discussed with the patient. All questions were answered and informed consent obtained. Details of the Procedure The patient underwent monitored anesthesia care, which was administered by an anesthesia professional. The patient's blood pressure, heart rate, level of consciousness, oxygen and respirations were monitored throughout the procedure. A digital rectal exam was performed. The scope was advanced to the sigmoid colon. Retroflexion was not performed due to altered anatomy. The quality of bowel preparation was evaluated using the [place] Bowel Preparation Scale with scores of: left colon = 1. Bowel prep was not adequate. The patient's estimated blood loss was minimal (<5 mL). The procedure was not difficult. The patient tolerated the procedure well. Attestation I was present for the entire procedure Specimens ID Type Source Tests Collected by Time A : left colon bx Tissue Colon SURGICAL PATHOLOGY EXAM Tres Dao MD 10/18/2023 1316 B : rectum bx Tissue Rectum SURGICAL PATHOLOGY EXAM Tres Dao MD 10/18/2023 1319 Findings Abnormal mucosa in the sigmoid colon. A linear ulceration with clean base measuring 10cm in length was encountered in the sigmoid colon, 30 cm from anal verge. Biopsies obtained with cold forceps for histology. An additional ulceration was seen proximal to this. Procedure was aborted at this extent due to inflammation and poor bowel preparation. Abnormal mucosa in the rectum. A 25mm ulceration with clean base was encountered in the rectum. Biopsies were obtained with cold forceps for histology. us Anival Fleming MD GI PROCEDURE ORDERABLES Final Re sult * Hepatitis panel, acute (10/15/2023 12:57 AM EST) Hepatitis B Surf Antigen Negative Negative 10/15/2023 6:39 AM EST [facility] Hepatitis C Antibody Negative Negative 10/15/2023 6:39 AM EST [facility] Hepatitis A Antibody IgM Negative Negative 10/15/2023 6:39 AM EST [facility] Hepatitis B Core Antibody IgM Negative Negative 10/15/2023 6:39 AM EST [facility] Blood Venous blood specimen / Unknown Venipuncture / Unknown 10/15/2023 12:57 AM EST 10/15/2023 1:14 AM EST us Patricia Barkley APRN, YADI LAB BLOOD ORDERABLES Liliya l Result Performing Organization Address [facility] Co de Phone Number [facility] [address] [place] [address] * (ABNORMAL) Hemoglobin A1c (10/13/2023 11:49 PM EST) Hemoglobin A1c 5.8(H) <5.7 % 10/14/2023 3:36 AM EST [facility] Blood Venous blood specimen / Unknown Venipuncture / Unknown 10/13/2023 11:49 PM EST 10/13/2023 11:56 PM EST Narrative [facility] - 10/14/2023 3:36 AM EST HA1C Interpretive Data: Diagnosis of Diabetes: Diabetic > or = 6.5% Pre-diabetic 5.7 to 6.4% Non-diabetic < or = 5.6% Glycemic Targets for Type I and Type II Diabetics: Non- Adults <7.0% Adults <6.0% Children and Adolescents <7.5% Source: [place] [employer]. Standards of medical care in diabetes,2017. Diabetes Care.2017:40 (suppl 1):S1-S135. HbA1c assay performed by an ion-exchange chromatography method that is certified traceable to the DCCT. us Hesham Whiteside MD LAB BLOOD ORDERABLES Final Re sult Performing Organization Address City/[facility]/ZIP Co de Phone Number [facility] [address] [place] [address] from Last 3 Months or Most Recently Relevant to Health Maintenance Insurance [employer] MEDICARE Advance Directives * Full Code (Latest Code Status on File) Date Activated Date Inactivated Comments 10/18/2023 4:44 PM 10/23/2023 5:27 PM Question Answer Comments Patient has decision-making capacity? Yes Care Teams Underwear Hemmer Relationship Specialty Start Date End Date Placido Mercado MD [facility] [place] [address] PCP - General 10/16/23
--- OUTSIDE RECORDS SUMMARY | 2025-03-05 11:02 | XMS_ITS | Encounter Summary ---
Author Organization Healthcare Address [address] [place] [address] Care Team Providers Care Director Nursing Service Name Role Phone Placido Mercado MD Primary Care Provider [phone] Encounter Details Date Type Department Care Team (Late st Contact Info) Description 10/16/2023 Lab Requisition [facility] [address] [place] [address] Jonas Tony MD [address] [facility] [address] [place] [address] Encounter for general adult medical examination without abnormal findings Social History Tobacco Use Types Packs/Day Years Used Date Smoking Tobacco: Never Assessed Humiliation, Afraid, Rape, and Kick questionnair e [...] place to sleep or slept in a fci (including now)? No 10/16/2023 Utilities Answer Date Recorded In the past 12 months has th e electric, gas, oil, or water company threatened to shut off services in your home? No 10/16/2023 Comments Unknown Sex and Gender Information Value Date Recorded Sex Assigned at Not on file Legal Sex Female 8:52 PM EDT Gender Identity Not on file Sexual Orientation Not on file documented as of this encounter Functional Status * Calculated C-SSRS Risk Score (Lifetime/Recent) Answer Date of Assessment Author No Risk Indicated 10/19/2023 8:00 PM Vivi Sue RN * Question Answer Date of Assessment Author 1. Wish to be (Past 1 Month) No 024 8:00 PM Vivi Sue, RN 2. Non-Specific Active Suici delfino Thoughts (Past 1 Month) No 10/19/2023 8:00 PM Eduard Sue RN 6. Suicidal Behavior (Lifetime) No 4 8:00 PM Vivi Sue RN documented as of this encounter Plan of Treatment Not on file documented as of this encounter Procedures Procedure Name Priority Date/Time Associated Diagnosis Comments MULTI DRUG RESISTANCE TEST Routine 10/16/2023 9:30 AM EST Encounter for general adult medical examination without abnormal findings documented in this encounter Results * Multi Drug Resistance Test (10/16/2023 9:30 AM EST) Culture No growth at day 1 10/17/2023 9:16 AM EST [facility] Swab (Nares and Nidhi Rectal) 10/16/2023 9:30 AM EST 10/16/2023 12:11 PM EST us Jonsa Tony MD LAB MICROBIOLOGY - GEN ERAL ORDERABLES Final Result Performing Organization Address City/State/[facility] Co de Phone Number [facility] [address] [place] [address] documented in this encounter Visit Diagnoses Diagnosis Encounter for general adult medical examination without abnormal findings documented in this encounter Additional Health Concerns Assessment Noted Time A Body Mass Index follow-up plan has been documented for the patient 10/23/2023 2:41 PM EST documented as of this encounter Care Teams Director Nursing Service Relationship Specialty Start Date End Date Placido Mercado MD [address] [place] [address] PCP - General 10/16/23 documented as of this encounter
[2025-03-05 11:03] VITALS: BP 113/71; PULSE 98; RESP 18; O2SAT 97; BMI 31.8
--- NOTE | 2025-03-05 11:50 | EXP.PAIN.OV ---
HPI Data of Consult Patient: new to practice Consult date: 03/05/25 Requesting Physician: Roseline Macias APRN Primary Care Provider: Placido Mercado Reason for consult: Low back pain, right hip pain History of present illness: Ms. Grajeda is a 79 year old female who presents today as a new patient. She is a referral from Dr. Vini Peterson. Today she rates her pain a 5 out of 10. Patient states she has had chronic back pain for at least a couple of years now. Patient does state that back in 2021 she did end up having a lumbar fusion with hardware. She ultimately ended up having problems with 1 area of the hardware and ultimately went through additional repair surgery just in February of this year. Patient states since then she has been having more increased pain in and around her low back and right hip and upper thigh. Patient does describe it as an aching sensation that is worse with prolonged sitting or laying down. Patient does state that she has been sleeping in recliner due to the worsening pain. Patient does also make mention that following this surgery she ended up getting diagnosed with a blood clot in her right leg and is on Eliquis for the next 6 months. Patient has tried prow-goa-fpujbvj medication along with ice and topicals. Patient is prescribed currently oxycodone 5 mg, muscle relaxers, gabapentin, and meloxicam. Patient does state the pain interferes with her ability perform activities of daily living such as cooking and cleaning. She does state that it does seem worse when she is in certain position for prolonged laying or seated. Patient states she does not want to stay years whatsoever due to the worsening pain and limited mobility. Patient had physical therapy following her surgery for about 2 weeks however she was having worsening back pain so they only did minimal. Patient states that she took it as they were worried that it would cause worse issues with her hardware. Patient does state in the past she had had injections before her initial surgery and that they did seem to significantly help. Patient is interested in any help we may be able to provide. Her Wayne has been reviewed. Pain at rest (0-10 scale): 5 Has patient had previous pain injection?: No Conservative treatment options previously tried: Home exercise plan (Longer than 12 weeks) and Physical Therapy (Made worse) cc:: CC: Roseline Macias APRN [facility] Disclaimer: The information contained in this section may have been updated after the patient was seen, as this information can be updated by other users. Medical History Hammertoe of left foot Left foot drop History of back pain Osteoarthritis History of gastroesophageal reflux (GERD) Hemorrhoid Hyperlipidemia Hypertension History of anemia Cataract Surgical History History of colonoscopy Family History Other Family history of diabetes mellitus type II Family history of hyperlipidemia Family history of hypertension Family history of leukemia Social History (Updated 03/05/25 @ 11:27 by Sophy Meeks RN) Smoking Status: Never smoker alcohol intake: never substance use type: denies use current occupational status: retired Travel in the last 8 weeks?: None household members: children housing: house lives independently: No marital status: well-balanced diet: daily or most days physical activity: none Review of Systems Review of Systems Review of systems:: pertinent systems reviewed and negative unless documented below Review of systems (narrative): Review of Systems: General: No recent weight changes, no fever, no sleep disturbances Respiratory: No cough, no shortness of air, no recurring pulmonary infections Cardiovascular/peripheral vascular: No chest pain, no palpitations, no edema, no shortness of breath Gastrointestinal: No new onset incontinence, normal bowel movements reported Genitourinary: No new onset incontinence Musculoskeletal: Low back pain, right hip pain, right thigh pain Psychiatric: [Normal mood/affect] Neurological: [Denies weakness in extremities], [denies balance issues] Meds Home Medications and Allergies Home Medications ?Medication ?Instructions ?Recorded ?Confirmed ?Type gabapentin 300 mg capsule 300 mg PO BID Restless leg syndrome 12/11/22 03/05/25 History lisinopril 20 1 tab PO DAILY High blood pressure 12/11/22 03/05/25 History mg-hydrochlorothiazide 12.5 mg tablet Held on 12/14/22. Instructions: Resume on 12/16/22. omeprazole 40 mg capsule,delayed 40 mg PO BID Acid reflux 12/12/22 03/05/25 History release pravastatin 40 mg tablet 40 mg PO HS Cholesterol 12/12/22 03/05/25 History ferrous sulfate 325 mg (65 mg 325 mg PO .qod Supplement 02/07/23 03/05/25 History iron) tablet (Iron (ferrous sulfate)) acetaminophen 500 mg capsule 1,000 mg PO ONCE 04/05/23 03/05/25 History bdbgbab-qskogfnqzbehe-geywwwsj 250 2 tab PO Q4-6H PRN MIGRAINES 04/05/23 03/05/25 History mg-250 mg-65 mg tablet (Excedrin Migraine) chlorpheniramine maleate 4 mg 4 mg PO Q8H PRN ALLERGIES 04/05/23 03/05/25 History tablet (Allergy Relief (chlorpheniramine)) coenzyme Q10 100 mg capsule 100 mg PO DAILY 04/05/23 03/05/25 History meloxicam 15 mg tablet 15 mg PO DAILY 05/17/23 03/05/25 History methocarbamol 500 mg tablet 500 mg PO Q8H PRN muscle spasm #30 08/22/24 03/05/25 Rx tabs oxycodone 5 mg tablet 5 mg PO Q6H PRN pain 3 days #12 12/29/24 03/05/25 Rx tabs New Prescriptions to Start Prescriptions: Allergies Allergy/AdvReac Type Severity Reaction Status Date / Time No Known Allergies Allergy Verified 09/19/24 13:16 Objective Vital signs: Pulse Resp BP Pulse Ox O2 Del Method 98 H 18 113/71 97 Room Air 03/05/25 11:03 03/05/25 11:03 03/05/25 11:03 03/05/25 11:03 03/05/25 11:03 Narrative: Physical Exam: General: Alert and oriented x3, no acute distress, pleasant and cooperative Lungs: Respirations even and unlabored, symmetrical chest expansion Eyes: PERRL Musculoskeletal: Flexion and extension of lumbar [spine] somewhat guarded secondary to pain, [antalgic gait noted] point tenderness along right SI and right bursa with positive right Cathy's, Annabelle's, Gaenslen's, compression and distraction exam Neurological: Speech clear, no gross sensory deficit Assessment and Plan *Assessment and plan (1) Sacroiliitis: Status: Acute Category: Medical Code(s): M46.1 - Sacroiliitis, not elsewhere classified (2) Trochanteric bursitis of right hip: Status: Acute Category: Medical Code(s): M70.61 - Trochanteric bursitis, right hip (3) Degenerative disc disease: Status: Acute Category: Medical (4) History of lumbar fusion: Status: Acute Category: Surgical Code(s): Z98.1 - Arthrodesis status Plan Patient is experiencing worsening pain along her low back and right hip with limited range of motion. Patient did have point tenderness along her right SI and right greater trochanteric bursa during today's exam. I did discuss with patient that I do believe she would benefit from a right SI and right greater trochanteric bursa injection. Risk and benefits were discussed with the patient and she would like to proceed forward with this plan of care. Patient has had this pain for longer than a year unrelieved with conservative measures such as oral medication, heat and ice, topicals, at home stretching exercise for longer than 12 weeks. Patient has also had prior back surgery with physical therapy that made her symptoms worse. Patient has had injections in the past that did significantly help. We were not able to confirm what injection she has had previously as she has not had any in the last couple of years and none with our office. Patient may be a future candidate of intrathecal pump trial. I did discuss this due to her history of prior fusion. We will follow-up with this at later dates. This will be a diagnostic SI injection with less than 1 mL of solution to be injected. I will also order the patient a compounded cream. Patient will be scheduled for a right SI and right bursa injection under fluoroscopy. Patient has been instructed to contact the clinic with any concerns before the next appointment. Dr. Alonzo has reviewed this note and agrees with this plan of care. This note was dictated using voice recognition software and make contain errors or omissions. All injections are used with Lidocaine, Bupivacaine and dexamethasone unless diagnostic in which case there is no steroids injected. Occasionally urine drug screen is needed to verify patient's compliance with our office pain contract. This is ordered based off specific treatments related to chronic pain with the potential to abuse certain medications.
== END 2025-03-05 23:59 | disposition home or self-care (01) ==
LOC: SC.PAIN 11:00
PROVIDERS: PCP Family Medicine; Visit Provider Nurse Practitioner Family
DX: M46.1 Sacroiliitis, not elsewhere classified (principal); M70.61 Trochanteric bursitis, right hip; Z98.1 Arthrodesis status; Z79.891 Long term (current) use of opiate analgesic; Z79.899 Other long term (current) drug therapy
CPT/HCPCS: 99202; G0463

== ENCOUNTER 2025-03-25 13:39 | Day surgery (SDC) | payer MEDICARE, SELFPAY ==
[2025-03-25 13:51] VITALS: BP 91/62; PULSE 73; RESP 18; O2SAT 95; BMI 30.8
--- NOTE | 2025-03-25 13:56 | P.PCN_ITS ---
Procedure Date: 03/25/25 Time: 14:00 Anesthesiologist:: Patrice Dickerson CRNA Complications:: None Pre-procedure Diagnosis:: Right sacroiliitis. Right trochanteric bursitis Post-procedure Diagnosis:: Same Indications for Procedure:: Patient is a pleasant 79-year-old female who comes our clinic today for right sacroiliac joint injection of cortisone local anesthetic. Also, right trochanteric bursa injection of cortisone and local anesthetic. Patient describes right low lumbar back pain as constant, dull, aching. She is having difficulty transitioning from sitting to standing. Difficulty with ambulation. She reports right lateral hip pain is constant, dull, sharp, stabbing. She has extreme point tenderness over the right trochanteric bursa area. She rates her pain 8/10. Procedure Details:: Procedure: Right trochanteric bursa injection under fluoroscopy We then moved to the right trochanteric bursa.~ C-arm fluoroscopy was used to view the left greater trochanter.~ The skin and subcutaneous tissues overlying the right greater trochanter were anesthetized using lidocaine, 1.5% and a 25- gauge needle.~ After this, a 22-gauge spinal needle was inserted and advanced until it contacted the right greater trochanter.~ Dye was injected and good spread was seen throughout the right trochanteric bursa. After this, approximately 5 mL of bupivacaine, 0.25% and dexamethasone 10 mg was incrementally injected into the right right trochanteric bursa.~ The patient tolerated the procedure well with no complications. Procedure: Right sacroliliac joint injection under fluoroscopy Informed consent was obtained and the risk and benefits of the procedure were explained to the patient.~ The patient was taken to the procedure room and noninvasive monitors were placed including noninvasive blood pressure cuff and pulse oximeter.~ The patient was placed prone on the procedure table.~ The~ right hip was cleansed using Betadine as a cleansing solution.~ C-arm fluorosocpy was used to view the right SI joint.~ The skin and subcutaneous tissues were anesthetized using Lidocaine 1.5% and a 25-gauge needle.~ After this, a 22-gauge spinal needle was inserted under fluoroscopic guidance into the inferior aspect of the right SI joint.~ Omnipaque dye was injected and a good spread was seen throughout the joint.~ After this, approximately 5 mL of bupivacaine 0.25% and dexamethasone 10 mg mg was incrementally injected into the sacroiliac joint.~ The patient tolerated the procedure well with no complications.~ The patient was observed in the Pain Clinic, then discharged home neurologically intact.~ Plan and Disposition:: Patient was discharged without incident.
[2025-03-25] MEDS: BUPIVACAINE 0.25% 10ML INJ 25 MG IJ (14:01)
[2025-03-25] MEDS: LIDOCAINE 1% 5ML PF VIAL 5 ML (14:01)
[2025-03-25] MEDS: DEXAMETHASONE 10MG/ML 1ML VIAL 10 MG (14:01)
[2025-03-25 14:02] VITALS: BP 124/72; PULSE 105; RESP 18; O2SAT 98
[2025-03-25 14:04] VITALS: BP 124/72; PULSE 105; RESP 18; O2SAT 98
[2025-03-25 14:07] VITALS: BP 111/71; PULSE 75; RESP 18; O2SAT 95
== END 2025-03-25 14:07 | disposition home or self-care (01) ==
PROVIDERS: PCP Family Medicine; Visit Provider Nurse Anesthetist, Certified Registered
DX: M70.61 Trochanteric bursitis, right hip (principal); M46.1 Sacroiliitis, not elsewhere classified; M25.551 Pain in right hip; M54.50 Low back pain, unspecified; I10 Essential (primary) hypertension; Z98.1 Arthrodesis status; E78.5 Hyperlipidemia, unspecified; M19.90 Unspecified osteoarthritis, unspecified site; D64.9 Anemia, unspecified; Z79.899 Other long term (current) drug therapy
CPT/HCPCS: G0260; J0665; J1100; J2003

== ENCOUNTER 2025-03-28 10:13 | Emergency (ER) | payer MEDICARE, SELFPAY ==
--- OUTSIDE RECORDS SUMMARY | 2025-01-29 09:30 | XMS_ITS | Encounter Summary ---
[facility] Address [address] [place] [address] Care Team Providers Care Operator Control Room Name Role Phone Placido Mercado MD Primary Care Provider [phone] Encounter Details Date Type Department Care Team (Late st Contact Info) Description 01/29/2025 9:30 AM EDT Pre-Admission Testing [facility] PREADMISSION [address] [place] [id number] Social History Tobacco Use Types Packs/Day Years Used Date Smoking Tobacco: Former Smokeless Tobacco: Never Alcohol Use Standard Drinks/Week Comments Never 0 (1 standard drink = 0.6 oz pur e alcohol) AUDIT-C Answer Date Recorded Q1: How often do you have a drink containing alcohol? Never 05/16/2022 Q2: How many drinks containi ng alcohol do you have on a typical day when you are drinking? Patient does not drink Q3: How often do you have si x or more drinks on one occasion? Never 05/16/2022 Abuse Screen Answer Date Recorded Feels Unsafe at Home or Work/School no 01/29/2025 Feels Threatened by Someone no 01/03 Does Anyone Try to Keep You From Having Contact with Others or Doing Things Outside Your Home? no 01/29/2025 Physical Signs of Abuse Present no 01/29/2025 Education Answer Date Recorded Help with school or training? Not on file Preferred Language Nigerian 01/29/2025 Comments No Sex and Gender Information Value Date Recorded Sex Assigned at Not on file Legal Sex Female 2:30 PM EDT Gender Identity Not on file Sexual Orientation Not on file documented as of this encounter Last Filed Vital Signs Vital Sign Reading Time Taken Comments Blood Pressure - - Pulse - - Temperature - - Respiratory Rate - - Oxygen Saturation - - Inhaled Oxygen Concentration - - Weight 78.5 kg (173 lb 2.7 oz) 01/29/2025 10:24 AM EDT Height 160 cm (5' 3 ) 01/29/2025 10:24 AM EDT Body Mass Index 30.68 01/29/2025 10:24 AM EDT documented in this encounter OR Notes * SCOTTY - Alicia Maldonado RN - 01/29/2025 9:30 AM EDT An arrival time for procedure was not provided during PAT visit. If patient had any questions or concerns about their arrival time, they were instructed to contact their surgeon/physician. Additionally, if the patient referred to an arrival time that was acquired from their my chart account, patient was encouraged to verify that time with their surgeon/physician. Arrival times are NOT provided inPre Admission Testing Department. Patient viewed general PAT education video as instructed in their preoperative information receivedfrom their surgeon. Patient stated the general PAT education video was viewed in its entirety and survey completed. Copies of PAT general education handouts (Incentive Spirometry, Meds to Beds Program, Patient Belongings, Pre-op skin preparation instructions, Blood Glucose testing, Visitor policy, Surgery FAQ, Code H) distributed to patient if not printed. Education related to the PAT pass and skin preparation for surgery (if applicable) completed in PAT as a reinforcement to PAT education video. Patient instructed to return PAT pass provided today as well as completed skin preparation sheet ( if applicable) on the day of procedure. Additionally if patient had not viewed video yet but intended to view it at home or in our waiting area, then referred them to the handout with QR code/link provided during PAT visit. Encouraged patient/family to read [facility] general education handouts thoroughly and notify PAT staff with any questionsor concerns. Patient verbalized understanding of all information and priority content. Patient denies any current skin issues. Per Anesthesia Request, patient instructed not to take their DEVIN/ARB medications on the AM of surgery. Patient instructed to drink 20 ounces of Gatorade or Gatorlyte (if diabetic) and it needs to be completed 1 hour (for Main OR patients) or 2 hours (scheduled section & [facility] patients) before given arrival time for procedure (NO RED Gatorade and NO Gatorade Zero). Patient verbalized understanding. Patient to apply Chlorhexadine wipes to surgical area (as instructed) the night before procedure and the AM of procedure. Wipes provided. Too early to draw type and screen in PAT. Please obtain blood bank specimen in pre-op on the day ofsurgery. Pt stated EKG from 01/24/[address] Peterson's office. Janeth Clay, production planner scheduler for Dr. Peterson,stated that she had not received EKG from Dr. Mercado's office yet, but would request it to be faxed to Dr. Peterson's office and would send copy to PAT. documented in this encounter Plan of Treatment Not on file documented as of this encounter Goals Goal Patient Goal Type Associated Problems Recent Progress Patient-Stated? Author Autogenerat ed Goal Care Plan Autogenerated Problem No Shan Huff documented as of this encounter Procedures Procedure Name Priority Date/Time Associated Diagnosis Comments PROTIME-INR Routine 01/29/2025 10:14 AM EDT CBC (NO DIFF) Routine 01/29/2025 9:58 AM EDT MRSA SCREEN Routine 01/29/2025 9:58 AM EDT POTASSIUM Routine 01/29/2025 9:58 AM EDT HEMOGLOBIN A1C Routine 01/29/2025 9:58 AM EDT documented in this encounter Results * (ABNORMAL) Protime-INR (01/29/2025 10:14 AM EDT) Protime 12.2 12.2 - 15.3 Seconds 01/29/2025 10:38 AM EDT [facility] INR 0.86(L) 0.89 - 1.12 01/29/2025 10:38 AM EDT [facility] Blood Venipuncture / Unknown 01/29/2025 10:14 AM EDT 01/29/2025 10:21 AM EDT Vini Peterson MD LAB BLOOD ORDERABLES Final Res ult Performing Organization Address [facility]/ZIP Co de Phone Number [facility]
[address] [place] [address], * MRSA Screen Culture (Outpatient) - Swab, Nares (01/29/2025 9:58 AM EDT) MRSA Screen Cx No Methicillin Resistant Staphylococcus aureus isolated NIKKIE 01/30/2025 10:31 AM EDT [facility] Swab Structure of anterior naris / Unknown Collection / Unknown 01/29/2025 9:58 AM EDT 01/29/2025 10:28 AM EDT Narrative [facility] - 01/30/2025 10:31 AM EDT The negative predictive value of this diagnostic test is high and should only be used to consider de-escalating anti-MRSA therapy. A positive result may indicate colonization with MRSA and must be correlated clinically. us Vini Peterson MD MICROBIOLOGY - GENERAL ORDERAB LES Final Result Performing Organization Address [facility]/ZIP Co de Phone Number [facility]
[address] [place] [address], * (ABNORMAL) CBC (No Diff) (01/29/2025 9:58 AM EDT) WBC 4.48 3.40 - 10.80 10*3/mm3 01/29/2025 11:24 AM EDT [facility] RBC 3.91 3.77 - 5.28 10*6/mm3 01/29/2025 11:24 AM EDT [facility] Hemoglobin 11.0(L) 12.0 - 15.9 g/dL 01/29/2025 11:24 AM EDT [facility] Hematocrit 36.0 34.0 - 46.6 % 01/29/2025 11:24 AM EDT [facility] MCV 92.1 79.0 - 97.0 fL 01/29/2025 11:24 AM EDT [facility] MCH 28.1 26.6 - 33.0 pg 01/29/2025 11:24 AM EDT [facility] MCHC 30.6(L) 31.5 - 35.7 g/dL 01/29/2025 11:24 AM EDT [facility] RDW 14.1 12.3 - 15.4 % 01/29/2025 11:24 AM EDT [facility] RDW-SD 47.5 37.0 - 54.0 fl 01/29/2025 11:24 AM EDT [facility] MPV 9.2 6.0 - 12.0 fL 01/29/2025 11:24 AM EDT [facility] Platelets 313 140 - 450 10*3/mm3 01/29/2025 11:24 AM EDT [facility] Blood Venipuncture / Unknown 01/29/2025 9:58 AM EDT 01/29/2025 10:21 AM EDT us Vini Peterson MD LAB BLOOD ORDERABLES Final Res ult [facility]
[address] [place] [address], * Potassium (01/29/2025 9:58 AM EDT) Potassium 5.2 3.5 - 5.2 mmol/L 01/29/2025 10:38 AM EDT [facility] Blood Venipuncture / Unknown 01/29/2025 9:58 AM EDT 01/29/2025 10:21 AM EDT us Vini Peterson MD LAB BLOOD ORDERABLES Final Res ult Performing Organization Address [facility] Co de Phone Number [facility]
[address] [place] [address], * Hemoglobin A1c (01/29/2025 9:58 AM EDT) Hemoglobin A1C 5.60 4.80 - 5.60 % 01/29/2025 10:50 AM EDT [facility] Blood Venipuncture / Unknown 01/29/2025 9:58 AM EDT 01/29/2025 10:21 AM EDT Narrative [facility] - 01/29/2025 10:50 AM EDT Hemoglobin A1C Ranges: Increased Risk for Diabetes 5.7% to 6.4% Diabetes >= 6.5% Diabetic Goal < 7.0% us Vini Peterson MD LAB BLOOD ORDERABLES Final Res ult Performing Organization Address [facility] Co de Phone Number [facility]
[address] [place] [address], documented in this encounter Visit Diagnoses Not on filedocumented in this encounter Additional Health Concerns Active Problems Noted Date Diagnosed Date Autogenerated Problem 03/06/2025 documented as of this encounter Care Teams Operator Control Room Relationship Specialty Start Date End Date Placido Mercado MD [address] [place], [place] [id number] [place] [address] PCP - General Family Medicine 01/29/25 documented as of this encounter
--- OUTSIDE RECORDS SUMMARY | 2025-02-03 05:14 | XMS_ITS | Encounter Summary ---
[facility] Address [address] [place] [address] Care Team Providers Care Property And Supply Officer Name Role Phone Placido Mercado MD Primary Care Provider [phone] Reason for Visit * Auth/Cert Specialty Diagnoses / Procedures Referred By Contac t Referred To Contact Procedures [place] ARTHRODESIS COMBINED TQ [id number] LUMBAR L 4-5 REVISION DECOMPRESSION WITH REVISED FUSION WITH PEDICLE SCREWS, CEMENT AUGMENTATION AND POSSIBLE EXTENSION OF FUSION Referral ID Status Reason Start Date Expiration Date Visits Re quested Visits Authorized [id number] 1 1 Encounter Details Date Type Department Care Team (Late st Contact Info) Description 02/03/2025 5:14 AM EDT - 02/07/2025 3:28 PM EDT Hospital Encounter [address] [place] [phone] Vini Peterson MD [address] [facility] [address] [place] [id number] S/P lumbar spinal fusion (revision decompression L4-5, posterior lateral fusion L4-5) (Primary Dx) Discharge Disposition: Snf Facility (DC - External) Social History Tobacco Use Types Packs/Day Years Used Date Smoking Tobacco: Former Smokeless Tobacco: Never Alcohol Use Standard Drinks/Week Comments Never 0 (1 standard drink = 0.6 oz pur e alcohol) [facility] Utilities Answer Date Recorded In the past 12 months has e electric, gas, oil, or water company threatened to shut off services in your home? No 02/04/2025 AUDIT-C Answer Date Recorded Q1: How often do you have a drink containing alcohol? Never 02/04/2025 Q2: How many drinks containi ng alcohol do you have on a typical day when you are drinking? Patient does not drink Q3: How often do you have si x or more drinks on one occasion? Never 02/04/2025 Overall Financial Resource Strain (CARDIA) Answe r Date Recorded How hard is it for you to pa y for the very basics like food, housing, medical care, and heating? Not very hard 02/04/2025 [facility] of Occupat ional Health - Occupational Stress Questionnaire Answer Date Recorded Do you feel stress - tense, restless, nervous, or anxious, or unable to sleep at night because your mind is troubled all the time - these days? Not at all 02/04/2025 Exercise Vital Sign Answer Date Recorde d On average, how many days pe r week do you engage in moderate to strenuous exercise (like a brisk walk)? 0 days 02/04/2025 On average, how many minutes do you engage in exercise at this level? 0 min 02/04/2025 Hunger Vital Sign Answer Date Recorded Within the past 12 months, y ou worried that your food would run out before you got the money to buy more. Never true 02/05/20 25 Within the past 12 months, t he food you bought just didn't last and you didn't have money to get more. Never true 02/04/2025 PRAPARE - Transportation Answer Date Re corded In the past 12 months, has l ack of transportation kept you from medical appointments or from getting medications? No 11/2024 In the past 12 months, has l ack of transportation kept you from meetings, work, or from getting things needed for daily living? No 02/04/2025 Abuse Screen Answer Date Recorded Feels Unsafe at Home or Work/School no 02/03/2025 Feels Threatened by Someone no 10/2024 Does Anyone Try to Keep You From Having Contact with Others or Doing Things Outside Your Home? no 02/03/2025 Physical Signs of Abuse Present no 02/03/2025 Housing Stability Answer Date Recorded Current Living Arrangements home 11/2024 Potentially Unsafe Housing Conditions none 02/04/2025 Family and Community Support Answer David e Recorded If for any reason you need h elp with day-to-day activities such as bathing, preparing meals, shopping, managing finances, etc., do you get the help you need? I get all the help I need 02/04/2025 How often do you feel lonely or isolated from those around you? Never 02/04/2025 Employment Answer Date Recorded Do you want help finding or keeping work or a job? I do not need or want help 02/04/2025 Disabilities Answer Date Recorded Difficulty Concentrating, Remembering or Making Decisions no 02/03/2025 Difficulty Managing Errands Independently yes 02/03/2025 Education Answer Date Recorded Do you want help with school or training? For example, starting or completing job training or getting a high school diploma, GED or equivalent No 02/04/2025 Preferred Language Senegalese 02/04/2025 PHQ-2 Answer Date Recorded Patient Health Questionnaire-2 Score 0 02/04/2025 Comments No Sex and Gender Information Value Date Recorded Sex Assigned at Not on file Legal Sex Female 2:30 PM EDT Gender Identity Not on file Sexual Orientation Not on file documented as of this encounter Last Filed Vital Signs Vital Sign Reading Time Taken Comments Blood Pressure 90/53 02/07/2025 2:48 PM EDT Pulse 81 02/07/2025 11:06 AM EDT Temperature 36.6 C (97.9 F) 02/07/2025 2:48 PM EDT Respiratory Rate 18 02/07/2025 2:48 PM EDT Oxygen Saturation 92% 02/07/2025 11:06 AM EDT Inhaled Oxygen Concentration - - Weight 77.1 kg (170 lb) 02/03/2025 6:18 AM EDT Height 160 cm (5' 3 ) 02/03/2025 6:18 AM EDT Body Mass Index 30.11 02/03/2025 6:18 AM EDT documented in this encounter Functional Status * Audit-C Score Answer Date of Assessment Author 0 02/04/2025 12:29 PM EDT Marguerite Noel RN * Question Answer Date of Assessment Author Q1: How often do you have a drink containing alcohol? Never 02/04/2025 12:29 PM EDT David Noel R N Q2: How many drinks containing alcohol do you have on a typical day when you are drinking? Patient does not drink 02/04/2025 12:29 PM EDT David Noel RN Q3: How often do you have six or more drinks on one occasion? Never 02/04/2025 12:29 PM EDT David Noel R N * Over the past 2 weeks, how often have you been bothered by any of the following problems? Question Answer Date of Assessment Author Patient Health Questionnaire-2 Score 0 11/2024 12:30 PM EDT David Noel RN * Question Answer Date of Assessment Author 1. Wish to be (Past 1 Month) No 025 6:30 AM EDT Jes Noriega RN 2. Non-Specific Active Suici delfino Thoughts (Past 1 Month) No 02/03/2025 6:30 AM EDT Aleah Noriega RN * Calculated C-SSRS Risk Score (Lifetime/Recent) Answer Date of Assessment Author No Risk Indicated 02/03/2025 6:30 AM EDT Jes Noriega RN * [place] Suicide Severity Rating Scale (Screener/Recent Self-Report) Question Answer Date of Assessment Author 6. Suicidal Behavior (Lifetime) No 6:30 AM EDT Jes Noriega RN * Question Answer Date of Assessment Author Little interest or pleasure in doing things Not at all 02/04/2025 12:30 PM EDT David Noel R N Feeling down, depressed, or hopeless Not at all 02/04/2025 12:30 PM EDT David Noel R N documented as of this encounter Discharge Summaries * Pavithra Oakes MD - 02/07/2025 10:18 AM EDT Images from the original note were not included. Patient Name: Gladys Mendes : 1945 DOS: 02/07/2025 Attending: Vini Peterson MD Primary Care Provider: Placido Mercado MD Date of Admission:.02/03/2025 5:14 AM Date of Discharge: 02/07/2025 Discharge Diagnosis: S/P lumbar spinal fusion (revision decompression L4-5, posterior lateral fusion L4-5) HTN (hypertension) Hyperlipidemia GERD (gastroesophageal reflux disease) Acute postoperative pain Lumbar stenosis with neurogenic claudication Hospital Course At Admit: Patient is a pleasant 79 y.o. female presented for scheduled surgery by Dr. Peterson. Patient is known to us from prior hospitalization in 2021 when she had decompression and fusion forspinal stenosis. Per Dr. Peterson's note ( Patient presents as a h/o L4-5 fusion 3 years 2.5 years ago. She did well until she fell approx 7 months ago with increasing LBP and leg pain since. Pain not responsive to conservative care. Cfound to have pseudarthrosis L4-5 with recurrent stenosis.). Patient underwent the following procedures: #1 Revision Decompression of L4-5 #2 Posterior Lateral Fusion of L4-5 #3 Pedicle Screws with cement augmentation Placed at L4-5 #4 Local Bone mixed with Purified Allograft Placed in Lateral Gutters #5 Removal of indwelling pedicle screws with retention of inter-body cage surgery was done under general anesthesia, was tolerated well, she was admitted for further management. Seen in her room postop, doing fairly well. Controlled postoperative pain. She has ambulated with physical therapy. Leg pain improved. No nausea, vomiting, or shortness of breath After admit: Patient was provided pain medications as needed for pain control. Adjustments were made to pain medications to optimize postop pain management. Risks and benefits of opiate medications discussed with patient. Wayne report in chart was reviewed prior to discharge. She was seen by PT and OT and has progressed slowly over her stay. Inpatient rehab was recommended.. Patient used an IS for atelectasis prophylaxis and mechanicals for DVT prophylaxis. Home medications were resumed as appropriate, and labs were monitored and remained fairly stable. With the progress she has made, Ms. Mendes is ready for DC today. Discussed with patient regarding plan and she shows understanding and agreement. Procedures Performed DECOMPRESSION WITH PSF OP NOTE Pre-Operative Diagnosis: L4-5 Pseudarthrosis with recurrent stenosis and neurogenic claudication Post Operative Diagnosis: Same Procedure: #1 Revision Decompression of L4-5 #2 Posterior Lateral Fusion of L4-5 #3 Pedicle Screws with cement augmentation Placed at L4-5 #4 Local Bone mixed with Purified Allograft Placed in Lateral Gutters #5 Removal of indwelling pedicle screws with retention of inter-body cage Spinal Surgery Levels Completed:1 Level Surgeon: Vini Peterson MD Tabulating Supervisor: Harman Kirk PA-C to assist with retraction, suction, visualization and implant placement. Anesthesia: General plus 30 cc 1/4% Marcaine with Epi, Local EBL: 400 cc with 100 cc cell safer given back Drain: Hemovac to bulb suction Pertinent Test Results: I reviewed the patient's new clinical results. Results from last 7 days Lab Units 02/04/25 0615 HEMOGLOBIN g/dL 9.7* HEMATOCRIT % 31.1* Results from last 7 days Lab Units 02/05/25 0659 02/04/25 0615 SODIUM mmol/L -- 138 POTASSIUM mmol/L 3.9 5.4* CHLORIDE mmol/L -- 105 CO2 mmol/L -- 27.0 BUN mg/dL -- 11.2 CREATININE mg/dL -- 0.87 CALCIUM mg/dL -- 9.5 GLUCOSE mg/dL -- 101* I reviewed the patient's new imaging including images and reports. Physical therapy: Amaris Reyes, PT Physical Therapist Specialty: Physical Therapy Plan of Care Signed Date of Service: 02/06/25 1114 Creation Time: 02/06/25 1407 Signed Goal Outcome Evaluation: Plan of Care Reviewed With: patient, child Progress: improving Outcome Evaluation: Pt increases ambulation distance but continues to be limited by significant pain that extends down into LLE limiting ability to ambulate and mobilize efficiently. Pt continues to demonstrate progress but would further benefit from IP PT to continue addressing deficits. RecommendSNF following d/c for best functional outcome. Anticipated Discharge Disposition (PT): shelter facility Discharge Assessment: Visit Vitals BP 136/84 (BP Location: Left arm, Patient Position: Lying) Pulse 94 Temp 97.7 ??F (36.5 ??C) (Oral) Resp 18 Ht 160 cm (63 ) Wt 77.1 kg (170 lb) SpO2 96% BMI 30.11 kg/m?? Temp (24hrs), Av.3 ??F (36.8 ??C), Min:97.7 ??F (36.5 ??C), Max:99 ??F (37.2 ??C) General Appearance: Alert, cooperative, in no acute distress Lungs: Clear to auscultation,respirations regular, even and unlabored Heart: Regular rhythm and normal rate, normal S1 and S2 Abdomen: Normal bowel sounds, no masses, no organomegaly, soft non-tender, non- distended, no guarding, no rebound tenderness Extremities: No edema, no cyanosis, no redness Pulses: Pulses palpable and equal bilaterally Skin: No bleeding, bruising or rash. Back dressing CDI. Neurologic: Cranial nerves 2 - 12 grossly intact, sensation intact, no gross deficit. Left partial foot drop is baseline otherwise normal Discharge Disposition: skilled nurse facility Discharge Medications New Medications Instructions Start Date bisacodyl 5 MG EC tablet Commonly known as: DULCOLAX 5 mg, Oral, Daily PRN bisacodyl 10 MG suppository Commonly known as: DULCOLAX 10 mg, Rectal, Daily PRN cyclobenzaprine 10 MG tablet Commonly known as: FLEXERIL 10 mg, Oral, 3 Times Daily PRN oxyCODONE 10 MG tablet Commonly known as: ROXICODONE 10 mg, Oral, Every 4 Hours PRN polyethylene glycol 17 g packet Commonly known as: MIRALAX 17 g, Oral, Daily PRN sennosides-docusate 8.6-50 MG per tablet Commonly known as: PERICOLACE 2 tablets, Oral, 2 Times Daily PRN Continue These Medications Instructions Start Date acetaminophen 650 MG 8 hr tablet Commonly known as: TYLENOL 1,300 mg, Every Morning acetaminophen 500 MG tablet Commonly known as: TYLENOL 1,000 mg, Nightly diphenhydrAMINE 25 mg capsule Commonly known as: BENADRYL 25 mg, Nightly PRN gabapentin 300 MG capsule Commonly known as: NEURONTIN 300 mg, Oral, 2 Times Daily lisinopril-hydrochlorothiazide 20-12.5 MG per tablet Commonly known as: PRINZIDE,ZESTORETIC 1 tablet, Daily omeprazole 40 MG capsule Commonly known as: priLOSEC 40 mg, 2 Times Daily pravastatin 40 MG tablet Commonly known as: PRAVACHOL 40 mg, Daily QUNOL ULTRA COQ10 PO 100 mg, Daily Turmeric 500 MG capsule 500 mg, Daily Stop These Medications oxyCODONE-acetaminophen 5-325 MG per tablet Commonly known as: PERCOCET Diet Instructions - Regular diet Activity Instructions - x1 assist walker and gait belt - As directed by your physician and physical therapist Follow-up Appointments Vini Peterson MD per his orders Discharge took over 30 min Waddah Yaacoubagha, MD 02/07/25 10:18 EDT * Loreta He - 02/05/2025 3:32 PM EDT Images from the original note were not included. Gladys Mendes (79 y.o. Female) Date of 1945 Social Security Number [id number] [place] [id number] [employer] Marital Status Single Admission Date 02/03/2025 Admission Type Elective Admitting Provider Vini Peterson MD Attending Provider Vini Peterson MD Department, Room/Bed [address], S362/1 Discharge Date Discharge Disposition Discharge Destination Attending Provider: Vini Peterson MD Allergies: No Known Allergies Isolation: None Infection: None Code Status: CPR Ht: 160 cm (63 ) Wt: 77.1 kg (170 lb) Admission Cmt: None Principal Problem: S/P lumbar spinal fusion (revision decompression L4-5, posterior lateral fusion L4-5) [Z98.1] Active Insurance as of 02/03/2025 Primary Coverage Payor Plan Insurance Group Employer/Plan Group [employer] MEDICARE REPLACEMENT [employer] MEDICARE ADVANTAGE PPO [id number] Payor Plan Address Payor Plan Phone Number Payor Plan Fax Number Effective Dates [address] [address] 09/04/2024 - None Entered [facility] [id number] Subscriber Name Subscriber Date Member ID GLADYS MENDES 1945 [id number] 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 Subjective Patient is a pleasant 79 y.o. female presented for scheduled surgery by Dr. Peterson. Patient is known to us from prior hospitalization in 2021 when she had decompression and fusion forspinal stenosis. Per Dr. Peterson's note ( Patient presents as a h/o L4-5 fusion 3 years 2.5 years ago. She did well until she fell approx 7 months ago with increasing LBP and leg pain since. Pain not responsive to conservative care. Cfound to have pseudarthrosis L4-5 with recurrent stenosis.). Patient underwent the following procedures: #1 Revision Decompression of L4-5 #2 Posterior Lateral Fusion of L4-5 #3 Pedicle Screws with cement augmentation Placed at L4-5 #4 Local Bone mixed with Purified Allograft Placed in Lateral Gutters #5 Removal of indwelling pedicle screws with retention of inter-body cage surgery was done under general anesthesia, was tolerated well, she was admitted for further management. Seen in her room postop, doing fairly well. Controlled postoperative pain. She has ambulated with physical therapy. Leg pain improved. No nausea, vomiting, or shortness of breath. Allergies: No Known Allergies Meds: Medications Prior to Admission Medication Sig Dispense Refill Last Dose/Taking acetaminophen (TYLENOL) 500 MG tablet Take 2 tablets by mouth Every Night. 02/02/2025 Evening Coenzyme [id number]-[id number] E (QUNOL ULTRA COQ10 PO) Take 100 mg by mouth Daily. 02/02/2025 Morning diphenhydrAMINE (BENADRYL) 25 mg capsule Take 1 capsule by mouth At Night As Needed for Sleep. 02/02/2025 Evening gabapentin (NEURONTIN) 300 MG capsule Take 1 capsule by mouth 2 (Two) Times a Day. 02/03/2025 at 3:00AM lisinopril-hydrochlorothiazide (PRINZIDE,ZESTORETIC) 20-12.5 MG per tablet Take 1 tablet by mouth Daily. 02/02/2025 Morning omeprazole (priLOSEC) 40 MG capsule Take 1 capsule by mouth 2 (Two) Times a Day. 02/03/2025 at 3:00 AM oxyCODONE-acetaminophen (PERCOCET) 5-325 MG per tablet Take 1 tablet by mouth 3 (Three) Times a DayAs Needed. for pain 02/03/2025 at 3:00 AM pravastatin (PRAVACHOL) 40 MG tablet Take 1 tablet by mouth Daily. 02/02/2025 Evening Turmeric 500 MG capsule Take 1 capsule by mouth Daily. 02/02/2025 Morning acetaminophen (TYLENOL) 650 MG 8 hr tablet Take 2 tablets by mouth Every Morning. Past Medical History: Diagnosis Date Colitis Elevated cholesterol GERD (gastroesophageal reflux disease) History of transfusion [facility], no reaction Hyperlipidemia Hypertension Past Surgical History: Procedure Laterality Date BREAST BIOPSY Right multiple COLONOSCOPY HEMORRHOIDECTOMY LUMBAR DISCECTOMY FUSION INSTRUMENTATION N/A 05/16/2022 Procedure: LUMBAR DECOMPRESSION WITH FUSION INSTRUMENTATION WITH PEDICLE SCREWS, CAGE AND ALLOGRAFTL4-5; Surgeon: Vini Peterson MD; Location: [facility]; Service: Orthopedic Spine; Laterality: N/A; MASTOIDECTOMY Left x3 TUBAL ABDOMINAL LIGATION History reviewed. No pertinent family history. Social History Tobacco Use Smoking status: Former Smokeless tobacco: Never Vaping Use Vaping status: Never Used Substance Use Topics Alcohol use: Never Drug use: Never Review of Systems Pertinent items are noted in HPI Vital Signs BP 133/87 (BP Location: Right arm, Patient Position: Lying) Pulse 93 Temp 97.6 ??F (36.4 ??C) (Oral) Resp 18 Ht 160 cm (63 ) Wt 77.1 kg (170 lb) SpO2 98% BMI 30.11 kg/m?? Physical Exam: General Appearance: Alert, cooperative, in no acute distress Head: Normocephalic, without obvious abnormality, atraumatic Eyes: Lids and lashes normal, conjunctivae and sclerae normal, no icterus, no pallor, corneas clear, Ears: Ears appear intact with no abnormalities noted Throat: No oral lesions, no thrush, oral mucosa moist Neck: No adenopathy, supple, trachea midline, no thyromegaly Lungs: Clear to auscultation,respirations regular, even and unlabored Heart: Regular rhythm and normal rate, normal S1 and S2, no murmur, no gallop Abdomen: Normal bowel sounds, no masses, no organomegaly, soft, nontender, nondistended, no guarding, no rebound tenderness Genitalia: Deferred Extremities: No edema, no cyanosis, no redness Back: Intact dressing with drain to Hemovac. Pulses: Pulses palpable and equal bilaterally Skin: No bleeding, bruising or rash Neurologic: Cranial nerves 2 - 12 grossly intact, no gross motor deficit. I reviewed the patient's new clinical results. Results from last 7 days Lab Units 01/29/25 0958 WBC 10*3/mm3 4.48 HEMOGLOBIN g/dL 11.0* HEMATOCRIT % 36.0 PLATELETS 10*3/mm3 313 Results from last 7 days Lab Units 01/29/25 0958 POTASSIUM mmol/L 5.2 Lab Results Component Value Date HGBA1C 5.60 01/29/2025 Assessment and Plan: S/P lumbar spinal fusion (revision decompression L4-5, posterior lateral fusion L4-5) HTN (hypertension) Hyperlipidemia GERD (gastroesophageal reflux disease) Lumbar stenosis with neurogenic claudication Plan 1. PT/OT early mobilization 2. Pain control-prns, multimodal approach, including resumption of patient's Neurontin 3. IS-encourage 4. DVT proph- mechanicals 5. Bowel regimen 6. Resume home medications as appropriate 7. Monitor post-op labs 8. Discharge planning . - Hypertension: Resume home medications as appropriate, formulary substitution when indicated. Holding parameters. PRN medications for elevated blood pressure. -Dyslipidemia: Resume home regimen statin ( formulary substitution when appropriate). -GERD: Resume PPI. Formulary substitution when indicated. Daniele disclaimer: Part of this encounter note is an electronic sample hand/translation of spoken language to printed text. The electronic translation of spoken language may permit erroneous, or at times, nonsensicalwords or phrases to be inadvertently transcribed; Although I have reviewed the note for such errors, some may still exist. Pavithra Oakes MD 02/03/25 17:34 EDT 1113 Vini Peterson MD at 02/03/25 0650 Pre-Op H&P Gladys Mendes [id number] 1945 Chief complaint: Back pain Subjective: Patient is a 79 y.o.female presents for scheduled surgery by Dr. Peterson. She anticipates a L 4-5 REVISION DECOMPRESSION WITH REVISED FUSION WITH PEDICLE SCREWS, CEMENT AUGMENTATION AND POSSIBLE EXTENSION OF FUSION today. She had previous lumbar fusion on 05/16/2022. She states about 3 months ago she had reoccurrence of low back pain. The pain radiates down BLE. No saddle anesthesia. Conservative treatments failed to provide lasting benefits. Review of Systems: Constitutional-- No fever, chills or sweats. No fatigue. CV-- No chest pain, palpitation or syncope. +HTN, HLD Resp-- No SOB, cough, hemoptysis Skin--No rashes or lesions Allergies: No Known Allergies Home Meds: Medications Prior to Admission Medication Sig Dispense Refill Last Dose/Taking acetaminophen (TYLENOL) 500 MG tablet Take 2 tablets by mouth Every Night. 02/02/2025 Evening Coenzyme S43-Cpsribz E (QUNOL ULTRA COQ10 PO) Take 100 mg by mouth Daily. 02/02/2025 Morning diphenhydrAMINE (BENADRYL) 25 mg capsule Take 1 capsule by mouth At Night As Needed for Sleep. 02/02/2025 Evening gabapentin (NEURONTIN) 300 MG capsule Take 1 capsule by mouth 2 (Two) Times a Day. 02/03/2025 at 3:00AM lisinopril-hydrochlorothiazide (PRINZIDE,ZESTORETIC) 20-12.5 MG per tablet Take 1 tablet by mouth Daily. 02/02/2025 Morning omeprazole (priLOSEC) 40 MG capsule Take 1 capsule by mouth 2 (Two) Times a Day. 02/03/2025 at 3:00 AM oxyCODONE-acetaminophen (PERCOCET) 5-325 MG per tablet Take 1 tablet by mouth 3 (Three) Times a DayAs Needed. for pain 02/03/2025 at 3:00 AM pravastatin (PRAVACHOL) 40 MG tablet Take 1 tablet by mouth Daily. 02/02/2025 Evening Turmeric 500 MG capsule Take 1 capsule by mouth Daily. 02/02/2025 Morning acetaminophen (TYLENOL) 650 MG 8 hr tablet Take 2 tablets by mouth Every Morning. PMH: Past Medical History: Diagnosis Date Colitis Elevated cholesterol GERD (gastroesophageal reflux disease) History of transfusion [facility], no reaction Hyperlipidemia Hypertension PSH: Past Surgical History: Procedure Laterality Date BREAST BIOPSY Right multiple COLONOSCOPY HEMORRHOIDECTOMY LUMBAR DISCECTOMY FUSION INSTRUMENTATION N/A 05/16/2022 Procedure: LUMBAR DECOMPRESSION WITH FUSION INSTRUMENTATION WITH PEDICLE SCREWS, CAGE AND ALLOGRAFTL4-5; Surgeon: Vini Peterson MD; Location: [facility]; Service: Orthopedic Spine; Laterality: N/A; MASTOIDECTOMY Left x3 TUBAL ABDOMINAL LIGATION Immunization History: Influenza: No Pneumococcal: UTD Tetanus: Unknown Social History: Tobacco: Social History Tobacco Use Smoking Status Former Smokeless Tobacco Never Alcohol: Social History Substance and Sexual Activity Alcohol Use Never Physical Exam:BP 111/83 (BP Location: Right arm, Patient Position: Lying) Pulse 74 Temp 97.9 ??F (36.6 ??C) (Temporal) Resp 16 Ht 160 cm (63 ) Wt 77.1 kg (170 lb) SpO2 97% BMI 30.11 kg/m?? General Appearance: Alert, cooperative, no distress, appears stated age Head: Normocephalic, without obvious abnormality, atraumatic Lungs: Clear to auscultation bilaterally, respirations unlabored Heart: Regular rate and rhythm, S1 and S2 normal Abdomen: Soft without tenderness Extremities: Extremities normal, atraumatic, no cyanosis or edema Skin: Skin color, texture, turgor normal, no rashes or lesions Neurologic: Grossly intact Results Review: LABS: Lab Results Component Value Date WBC 4.48 01/29/2025 HGB 11.0 (L) 01/29/2025 HCT 36.0 01/29/2025 MCV 92.1 01/29/2025 PLT 313 01/29/2025 NEUTROABS 11.58 (H) 10/13/2023 GLUCOSE 108 (H) 10/15/2023 BUN 13 05/17/2022 CREATININE 0.95 05/17/2022 NA 137 10/15/2023 K 5.2 01/29/2025 CL 108 (H) 10/15/2023 CO2 17.0 (L) 05/17/2022 MG 1.6 (L) 10/21/2023 CALCIUM 7.5 (L) 05/17/2022 RADIOLOGY: Imaging Results (Last 72 Hours) No results found for the last 72 hours. I reviewed the patient's new clinical results. Cancer Staging (if applicable) Cancer Patient: __ yes __no __unknown; If yes, clinical stage T:__ N:__M:__, stage group or __N/A Impression: Back pain and BLE Neurogenic Claudication Plan: L 4-5 REVISION DECOMPRESSION WITH REVISED FUSION WITH PEDICLE SCREWS, CEMENT AUGMENTATION ANDPOSSIBLE EXTENSION OF FUSION Thuy ZAYRA Robertson 02/03/2025 06:50 EDT 0717 Physician Progress Notes (most recent note) Thuy Robertson APRN at 02/05/25 1102 IM progress note Gladys Mendes [id number] 1945 LOS: 2 days Attending: Vini Peterson MD Primary Care Provider: Placido Mercado MD Chief Complaint/Reason for visit: No chief complaint on file. Subjective Doing well. Adequate pain control. Denies f/c/n/v/sob/cp. Objective Visit Vitals BP 132/86 (BP Location: Left arm, Patient Position: Lying) Pulse 90 Temp 98.3 ??F (36.8 ??C) (Oral) Resp 18 Ht 160 cm (63 ) Wt 77.1 kg (170 lb) SpO2 98% BMI 30.11 kg/m?? Temp (24hrs), Av.3 ??F (36.8 ??C), Min:98.3 ??F (36.8 ??C), Max:98.5 ??F (36.9 ??C) Physical Therapy: Pt reporting decreased pain this date following functional mobility this date butcontinues to require min-A for transfers and gait. Pt continues to benefit from IP PT services to address functional deficits and promote return to baseline. Given that pt lives alone and her consistent high pain levels she is unsafe to return straight home at this time. Recommend SNF for best functional outcome. Physical Exam: General Appearance: Alert, cooperative, in no acute distress Head: Normocephalic, without obvious abnormality, atraumatic Lungs: Normal effort, symmetric chest rise, clear to auscultation bilaterally Heart: Regular rhythm and normal rate, normal S1 and S2 Abdomen: Normal bowel sounds, no masses, no organomegaly, soft nontender, nondistended, no guarding, no rebound tenderness Back: Intact dressing with drain to Hemovac-out 02/05/25 Extremities: No clubbing, cyanosis or edema. No deformities. Pulses: Pulses palpable and equal bilaterally Skin: No bleeding, bruising or rash Neuro: Partial left foot drop, otherwise no focal deficit. Results Review: I reviewed the patient's new clinical results. Results from last 7 days Lab Units 02/04/25 0615 HEMOGLOBIN g/dL 9.7* HEMATOCRIT % 31.1* Results from last 7 days Lab Units 02/05/25 0659 02/04/25 0615 SODIUM mmol/L -- 138 POTASSIUM mmol/L 3.9 5.4* CHLORIDE mmol/L -- 105 CO2 mmol/L -- 27.0 BUN mg/dL -- 11.2 CREATININE mg/dL -- 0.87 CALCIUM mg/dL -- 9.5 GLUCOSE mg/dL -- 101* I reviewed the patient's new imaging including images and reports. All medications reviewed. gabapentin, 300 mg, Oral, BID pantoprazole, 40 mg, Oral, BID AC pravastatin, 40 mg, Oral, Daily acetaminophen, 650 mg, Q4H PRN Or acetaminophen, 650 mg, Q4H PRN Or acetaminophen, 650 mg, Q4H PRN senna-docusate sodium, 2 tablet, BID PRN And polyethylene glycol, 17 g, Daily PRN And bisacodyl, 5 mg, Daily PRN And bisacodyl, 10 mg, Daily PRN cyclobenzaprine, 10 mg, TID PRN labetalol, 10 mg, Q4H PRN ondansetron ODT, 4 mg, Q6H PRN oxyCODONE, 5 mg, Q4H PRN Or oxyCODONE, 10 mg, Q4H PRN Assessment & Plan S/P lumbar spinal fusion (revision decompression L4-5, posterior lateral fusion L4-5) Lumbar stenosis with neurogenic claudication HTN (hypertension) Hyperlipidemia GERD (gastroesophageal reflux disease) Acute postoperative pain Plan 1. PT/OT, continue 2. Pain control-prns 3. IS-encouraged 4. DVT proph-mechanicals, early mobilization 5. Bowel regimen 6. Monitor post-op labs 7. Discharge planning for home versus inpatient rehab - Hypertension: Resume home medications as appropriate, formulary substitution when indicated. Holding parameters. PRN medications for elevated blood pressure. -Dyslipidemia: Resume home regimen statin ( formulary substitution when appropriate). -GERD: Resume PPI. Formulary substitution when indicated. - Mild hypokalemia- resolved Thuy Robertson APRN 02/05/25 11:05 EDT 1105 Physical Therapy Notes (most recent note) Amaris Reyes, PT at 02/05/25 0907 Version 1 of 1 Patient Name: Gladys Mendes : 1945 Today's Date: 02/05/2025 Admit Date: 02/03/2025 Visit Dx: No diagnosis found. Patient Active Problem List Diagnosis Spondylolisthesis at L4-L5 level HTN (hypertension) Hyperlipidemia GERD (gastroesophageal reflux disease) S/P lumbar spinal fusion, decompression Obesity Acute postoperative pain Acute blood loss anemia, asymptomatic Lumbar stenosis with neurogenic claudication S/P lumbar spinal fusion (revision decompression L4-5, posterior lateral fusion L4-5) Past Medical History: Diagnosis Date Colitis Elevated cholesterol GERD (gastroesophageal reflux disease) History of transfusion [facility], no reaction Hyperlipidemia Hypertension Past Surgical History: Procedure Laterality Date BREAST BIOPSY Right multiple COLONOSCOPY HEMORRHOIDECTOMY LUMBAR DISCECTOMY FUSION INSTRUMENTATION N/A 05/16/2022 Procedure: LUMBAR DECOMPRESSION WITH FUSION INSTRUMENTATION WITH PEDICLE SCREWS, CAGE AND ALLOGRAFTL4-5; Surgeon: Vini Peterson MD; Location: [facility]; Service: Orthopedic Spine; Laterality: N/A; LUMBAR DISCECTOMY FUSION INSTRUMENTATION N/A 02/03/2025 Procedure: REVISION DECOMPRESSION WITH REVISED FUSION WITH PEDICLE SCREWS WITH CEMENT AUGMENTATION,AND HARDWARE REVISION L4-5; Surgeon: Vini Peterson MD; Location: [facility]; Service: Orthopedic Spine; Laterality: N/A; MASTOIDECTOMY Left x3 TUBAL ABDOMINAL LIGATION General Information Row Name 02/05/25 1010 Physical Therapy Time and Intention Document Type therapy note (daily note) -ND Mode of Treatment physical therapy -ND Row Name 02/05/25 1010 General Information Patient Profile Reviewed yes -ND Existing Precautions/Restrictions fall;spinal;other (see comments) Coordinate with pain medicine -ND Barriers to Rehab previous functional deficit -ND Row Name 02/05/25 1010 Cognition Orientation Status (Cognition) oriented x 4 -ND Row Name 02/05/25 1010 Safety Issues/Impairments Affecting Functional Mobility Safety Issues Affecting Function (Mobility) awareness of need for assistance;safety precaution awareness;sequencing abilities -ND Impairments Affecting Function (Mobility) balance;endurance/activity tolerance;pain;postural/trunk control;range of motion (ROM);strength -ND User Metcalf (r) = Recorded By, (t) = Taken By, (c) = Cosigned By Initials Name Provider Type Amaris Rahman PT Physical Therapist Mobility Row Name 02/05/25 1010 Bed Mobility Comment, (Bed Mobility) Pt found and left sitting UIC. -ND Row Name 02/05/25 1010 Sit-Stand Transfer Sit-Stand [place] (Transfers) contact guard;nonverbal cues (demo/gesture);verbal cues -ND Assistive Device (Sit-Stand Transfers) walker, front-wheeled -ND Comment, (Sit-Stand Transfer) x1 from chair, x1 from toilet. Increased time for upright posture dueto pain. -MS Row Name 02/05/25 1010 Gait/Stairs (Locomotion) [place] Level (Gait) minimum assist (75% patient effort);verbal cues;nonverbal cues (demo/gesture) -ND Assistive Device (Gait) walker, front-wheeled -ND Patient was able to Ambulate yes -ND Distance in Feet (Gait) 15 + 75' -ND Deviations/Abnormal Patterns (Gait) bilateral deviations;antalgic;anthony decreased;gait speed decreased;stride length decreased;left sided deviations -ND Bilateral Gait Deviations forward flexed posture;heel strike decreased -ND Left Sided Gait Deviations foot drop/toe drag -ND Comment, (Gait/Stairs) Pt ambulates into bathroom and then out into hallway with RWx and min-A for stability. Pt continues to demonstrate forward flexed posture and decreased speed secondary to pain.Pt requires 2 standing rest breaks. Distance limited by pain and fatigue. -ND User Metcalf (r) = Recorded By, (t) = Taken By, (c) = Cosigned By Initials Name Provider Type Amaris Rahman PT Physical Therapist Obj/Interventions Row Name 02/05/25 1015 Motor Skills Therapeutic Exercise hip;knee;ankle -ND Row Name 02/05/25 1015 Hip (Therapeutic Exercise) Hip (Therapeutic Exercise) isometric exercises -ND Hip Isometrics (Therapeutic Exercise) bilateral;gluteal sets;other (see comments);10 repetitions abdominal setting -ND Row Name 02/05/25 1015 Knee (Therapeutic Exercise) Knee (Therapeutic Exercise) isometric exercises -ND Knee Isometrics (Therapeutic Exercise) bilateral;quad sets;10 repetitions -ND Row Name 02/05/25 1015 Ankle (Therapeutic Exercise) Ankle (Therapeutic Exercise) AROM (active range of motion) -ND Ankle AROM (Therapeutic Exercise) bilateral;dorsiflexion;plantarflexion;10 repetitions -ND Row Name 02/05/25 1015 Balance Balance Assessment sitting static balance;sitting dynamic balance;standing static balance;standing dynamic balance -ND Static Sitting Balance standby assist -ND Dynamic Sitting Balance standby assist -ND Position, Sitting Balance unsupported;sitting in chair -ND Static Standing Balance contact guard -ND Dynamic Standing Balance contact guard -ND Position/Device Used, Standing Balance supported;walker, front-wheeled -ND Balance Interventions sitting;standing;sit to stand;supported;static;dynamic -ND User Metcalf (r) = Recorded By, (t) = Taken By, (c) = Cosigned By Initials Name Provider Type ND Amaris Reyes, PT Physical Therapist Goals/Plan No documentation. Clinical Impression Row Name 02/05/25 1018 Pain Pretreatment Pain Rating 7/10 -ND Posttreatment Pain Rating 4/10 -ND Pain Location back -ND Pain Side/Orientation bilateral;lower -ND Pain Management Interventions positioning techniques utilized;premedicated for activity;exercise orphysical activity utilized;activity modification encouraged;cold applied -ND Response to Pain Interventions intervention effective per patient report -ND Row Name 02/05/25 1018 Plan of Care Review Plan of Care Reviewed With patient;child -ND Progress improving -ND Outcome Evaluation Pt reporting decreased pain this date following functional mobility this date but continues to require min-A for transfers and gait. Pt continues to benefit from IP PT services to address functional deficits and promote return to baseline. Given that pt lives alone and her consistent high pain levels she is unsafe to return straight home at this time. Recommend SNF for best functional outcome. -ND Row Name 02/05/25 1018 Vital Signs Pre Systolic BP Rehab 132 -ND Pre Treatment Diastolic BP 86 -ND Post Systolic BP Rehab 134 -ND Post Treatment Diastolic BP 78 -ND O2 Delivery Pre Treatment room air -ND O2 Delivery Intra Treatment room air -ND O2 Delivery Post Treatment room air -ND Pre Patient Position Sitting -ND Intra Patient Position Standing -ND Post Patient Position Sitting -ND Row Name 02/05/25 1018 Positioning and Restraints Pre-Treatment Position sitting in chair/recliner -ND Post Treatment Position chair -ND In Chair notified nsg;reclined;legs elevated;call light within reach;encouraged to call for assist;exit alarm on;waffle cushion;with family/caregiver ice -ND User Metcalf (r) = Recorded By, (t) = Taken By, (c) = Cosigned By Initials Name Provider Type Amaris Rahman, FERNANDO Physical Therapist Outcome Measures Row Name 02/05/25 1024 How much help from another person do you currently need... Turning from your back to your side while in flat bed without using bedrails? 3 -ND Moving from lying on back to sitting on the side of a flat bed without bedrails? 3 -ND Moving to and from a bed to a chair (including a wheelchair)? 3 -ND Standing up from a chair using your arms (e.g., wheelchair, bedside chair)? 3 -ND Climbing 3-5 steps with a railing? 2 -ND To walk in hospital room? 3 -ND AM-PAC 6 Clicks Score (PT) 17 -ND Highest Level of Mobility Goal Stand (1 or More Minutes)-5 -ND Row Name 02/05/25 1024 Functional Assessment Outcome Measure Options AM-PAC 6 Clicks Basic Mobility (PT) -ND User Metcalf (r) = Recorded By, (t) = Taken By, (c) = Cosigned By Initials Name Provider Type Amaris Rahman PT Physical Therapist Physical Therapy Education Title: PT OT FINISHED YARN EXAMINER Therapies (In Progress) Topic: Physical Therapy (Done) Point: Mobility training (Done) Learning Progress Summary Patient Acceptance, E, VU by ND at 02/05/2025 1024 Acceptance, E, VU by ND at 02/04/2025 1346 Acceptance, E, VU by ND at 02/03/2025 1644 Point: Home exercise program (Done) Learning Progress Summary Patient Acceptance, E, VU by ND at 02/05/2025 1024 Acceptance, E, VU by ND at 02/04/2025 1346 Point: Body mechanics (Done) Learning Progress Summary Patient Acceptance, E, VU by ND at 02/05/2025 1024 Acceptance, E, VU by ND at 02/04/2025 1346 Acceptance, E, VU by ND at 02/03/2025 1644 Point: Precautions (Done) Learning Progress Summary Patient Acceptance, E, VU by ND at 02/05/2025 1024 Acceptance, E, VU by ND at 02/04/2025 1346 Acceptance, E, VU by ND at 02/03/2025 1644 User Metcalf Initials Effective Dates Name Provider Type Discipline ND 07/20/23 - Amaris Reyes PT Physical Therapist PT PT Recommendation and Plan Planned Therapy Interventions (PT): balance training, bed mobility training, gait training, patient/family education, home exercise program, transfer training, postural re-education, ROM (range of motion), stair training, strengthening Progress: improving Outcome Evaluation: Pt reporting decreased pain this date following functional mobility this date but continues to require min-A for transfers and gait. Pt continues to benefit from IP PT services toaddress functional deficits and promote return to baseline. Given that pt lives alone and her consistent high pain levels she is unsafe to return straight home at this time. Recommend SNF for best functional outcome. Time Calculation: PT Evaluation Complexity History, PT Evaluation Complexity: 3 or more personal factors and/or comorbidities Examination of Body Systems (PT Eval Complexity): total of 4 or more elements Clinical Presentation (PT Evaluation Complexity): evolving Clinical Decision Making (PT Evaluation Complexity): moderate complexity Overall Complexity (PT Evaluation Complexity): moderate complexity PT Charges Row Name 02/05/25 1024 Time Calculation Start Time 0907 -ND PT Received On 02/05/25 - Timed Charges 73167 - PT Therapeutic Exercise Minutes 10 -ND 39507 - Gait Training Minutes 15 -ND 18343 - PT Therapeutic Activity Minutes 15 -ND Total Minutes Timed Charges Total Minutes 40 -ND Total Minutes 40 -ND User Metcalf (r) = Recorded By, (t) = Taken By, (c) = Cosigned By Initials Name Provider Type ND Amaris Reyes PT Physical Therapist Therapy Charges for Today Code Description Service Date Service Provider Modifiers Qty 77849144081 HC GAIT TRAINING EA 15 MIN 02/04/2025 Amaris Reyes, PT GP 1 28212148904 HC PT THERAPEUTIC ACT EA 15 MIN 02/04/2025 Amaris Reyes, PT GP 1 36021133214 HC PT THER PROC EA 15 MIN 02/05/2025 Amaris Reyes, PT GP 1 61488125670 HC GAIT TRAINING EA 15 MIN 02/05/2025 Amaris Reyes, PT GP 1 37602867615 HC PT THERAPEUTIC ACT EA 15 MIN 02/05/2025 Amaris Reyes, PT GP 1 PT G-Codes Outcome Measure Options: AM-PAC 6 Clicks Basic Mobility (PT) AM-PAC 6 Clicks Score (PT): 17 AM-PAC 6 Clicks Score (OT): 20 PT Discharge Summary Anticipated Discharge Disposition (PT): shelter facility Amaris Reyes, PT 02/05/2025 1025 Occupational Therapy Notes (most recent note) Winter Burton, OT at 02/04/25 0835 Patient Name: Gladys Mendes : 1945 Today's Date: 02/04/2025 Admit Date: 02/03/2025 Visit Dx: No diagnosis found. Patient Active Problem List Diagnosis Spondylolisthesis at L4-L5 level HTN (hypertension) Hyperlipidemia GERD (gastroesophageal reflux disease) S/P lumbar spinal fusion, decompression Obesity Acute postoperative pain Acute blood loss anemia, asymptomatic Lumbar stenosis with neurogenic claudication S/P lumbar spinal fusion (revision decompression L4-5, posterior lateral fusion L4-5) Past Medical History: Diagnosis Date Colitis Elevated cholesterol GERD (gastroesophageal reflux disease) History of transfusion [facility], no reaction Hyperlipidemia Hypertension Past Surgical History: Procedure Laterality Date BREAST BIOPSY Right multiple COLONOSCOPY HEMORRHOIDECTOMY LUMBAR DISCECTOMY FUSION INSTRUMENTATION N/A 05/16/2022 Procedure: LUMBAR DECOMPRESSION WITH FUSION INSTRUMENTATION WITH PEDICLE SCREWS, CAGE AND ALLOGRAFTL4-5; Surgeon: Vini Peterson MD; Location: [facility]; Service: Orthopedic Spine; Laterality: N/A; LUMBAR DISCECTOMY FUSION INSTRUMENTATION N/A 02/03/2025 Procedure: REVISION DECOMPRESSION WITH REVISED FUSION WITH PEDICLE SCREWS WITH CEMENT AUGMENTATION,AND HARDWARE REVISION L4-5; Surgeon: Vini Peterson MD; Location: [facility]; Service: Orthopedic Spine; Laterality: N/A; MASTOIDECTOMY Left x3 TUBAL ABDOMINAL LIGATION General Information Row Name 02/04/25 0944 OT Time and Intention Document Type evaluation -SA Mode of Treatment occupational therapy -SA Row Name 02/04/25 0944 General Information Patient Profile Reviewed yes -SA Prior Level of Function independent:;all household mobility;gait;transfer;bed mobility;ADL's Uses rollator at baseline, owns RWx; primarily household distance ambulator; hx of chronic left foot drop - Existing Precautions/Restrictions fall;spinal;other (see comments) Hemovac - Barriers to Rehab previous functional deficit - Row Name 02/04/25943 Occupational Profile Occupational History/Life Experiences (Occupational Profile) Owns SPC, quad cane, elevated toilet seat, WIS with shower chair - Row Name 02/04/25943 Living Environment Current Living Arrangements home - People in Home child(teresita), adult - Row Name 02/04/25943 Home Main Entrance Number of Stairs, Main Entrance one Access to ramp -SA Stair Railings, Main Entrance none - Row Name 02/04/25943 Stairs Within Home, Primary Stair Railings, Within Home, Primary none - Row Name 02/04/25943 Cognition Orientation Status (Cognition) oriented x 4 - Row Name 02/04/25943 Safety Issues/Impairments Affecting Functional Mobility Safety Issues Affecting Function (Mobility) awareness of need for assistance;positioning of assistive device;safety precaution awareness;safety precautions follow-through/compliance;sequencing abilities - Impairments Affecting Function (Mobility) balance;endurance/activity tolerance;pain;postural/trunk control;range of motion (ROM);strength - User Metcalf (r) = Recorded By, (t) = Taken By, (c) = Cosigned By Initials Name Provider Type Winter Burton OT Occupational Therapist Mobility/ADL's Row Name 02/04/25946 Bed Mobility Bed Mobility rolling right;scooting/bridging;supine-sit - Rolling Right [place] (Bed Mobility) verbal cues;minimum assist (75% patient effort) - Scooting/Bridging [place] (Bed Mobility) standby assist;verbal cues - Supine-Sit [place] (Bed Mobility) minimum assist (75% patient effort);nonverbal cues (demo/gesture);verbal cues - Assistive Device (Bed Mobility) bed rails;head of bed elevated - Comment, (Bed Mobility) Increased time and effort secondary to pain; verbal cues for log roll and sequencing; Min A for trunk - Row Name 02/04/2523 Transfers Transfers sit-stand transfer;stand-sit transfer;toilet transfer - Row Name 02/04/25946 Sit-Stand Transfer Sit-Stand [place] (Transfers) verbal cues;contact guard -SA Assistive Device (Sit-Stand Transfers) walker, front-wheeled -SA Comment, (Sit-Stand Transfer) VC for hand placement; 1x from EOB, 1x from chair to complete LBD - Row Name 02/04/25946 Stand-Sit Transfer Stand-Sit [place] (Transfers) verbal cues;contact guard -SA Assistive Device (Stand-Sit Transfers) walker, front-wheeled -SA Comment, (Stand-Sit Transfer) VC to reach back for arm rests of chair - Row Name 02/04/25946 Toilet Transfer Type (Toilet Transfer) sit-stand;stand-sit -SA [place] Level (Toilet Transfer) verbal cues;contact guard -SA Assistive Device (Toilet Transfer) grab bars/safety frame;raised toilet seat - Comment, (Toilet Transfer) VC for sequencing - Row Name 02/04/25946 Functional Mobility Functional Mobility- Ind. Level contact guard assist - Functional Mobility- Device walker, front-wheeled -SA Functional Mobility-Distance (Feet) -- To/from restroom within room - Patient was able to Ambulate yes -[facility] Name 02/04/25946 Activities of Daily Living BADL Assessment/Intervention upper body dressing;lower body dressing;grooming;toileting -[facility] Name 02/04/25946 Upper Body Dressing Assessment/Training [place] Level (Upper Body Dressing) doff;don;bra/undergarment;pull-over garment;minimum assist(75% patient effort) - Position (Upper Body Dressing) unsupported sitting - Row Name 02/04/25946 Lower Body Dressing Assessment/Training [place] Level (Lower Body Dressing) don;pants/bottoms;verbal cues;minimum assist (75% patient effort) - Assistive Devices (Lower Body Dressing) relief driller - Position (Lower Body Dressing) unsupported sitting - Comment, (Lower Body Dressing) Pt educated on spinal precautions for LBD; pt provided AE for LBD; pt practiced with relief driller and completed LBD with reach, Min A, and verbal cues; pt needs education and practice with sock aid and long handled shoe horn - Row Name 06/03/25 0947 Grooming Assessment/Training [place] Level (Grooming) wash face, hands;contact guard assist -SA Position (Grooming) sink side -SA Row Name 02/04/25 0947 Toileting Assessment/Training [place] Level (Toileting) perform perineal hygiene;standby assist -SA Assistive Devices (Toileting) commode;raised toilet seat -SA Position (Toileting) unsupported sitting -SA User Metcalf (r) = Recorded By, (t) = Taken By, (c) = Cosigned By Initials Name Provider Type Winter Burton OT Occupational Therapist Obj/Interventions Row Name 02/04/25 0955 Sensory Assessment (Somatosensory) Sensory Assessment (Somatosensory) UE sensation intact - Sensory Assessment Reports intermittent numbness/tingling BLEs - Row Name 02/04/25 0955 Vision Assessment/Intervention Visual Impairment/Limitations L - Row Name 02/04/25 0955 Range of Motion Comprehensive General Range of Motion bilateral upper extremity ROM WNL - Row Name 02/04/25 0955 Strength Comprehensive (MMT) Comment, General Manual Muscle Testing (MMT) Assessment BUE grossly WFL - Row Name 02/04/25 0955 Balance Balance Assessment sitting static balance;sitting dynamic balance;sit to stand dynamic balance;standing static balance;standing dynamic balance -SA Static Sitting Balance standby assist -SA Dynamic Sitting Balance contact guard -SA Position, Sitting Balance unsupported;sitting in chair;sitting edge of bed -SA Sit to Stand Dynamic Balance contact guard -SA Static Standing Balance contact guard -SA Dynamic Standing Balance contact guard -SA Position/Device Used, Standing Balance supported;walker, rolling -SA Balance Interventions sitting;standing;sit to stand;supported;static;dynamic;minimal challenge;occupation based/functional task - Comment, Balance No LOB at this [facility] -SA User Metcalf (r) = Recorded By, (t) = Taken By, (c) = Cosigned By Initials Name Provider Type Winter Galvan OT Occupational Therapist Goals/Plan Row Name 02/04/25 1114 Bed Mobility Goal 1 (OT) Activity/Assistive Device (Bed Mobility Goal 1, OT) bed mobility activities, all -SA [place] Level/Cues Needed (Bed Mobility Goal 1, OT) independent -SA Time Frame (Bed Mobility Goal 1, OT) ski tow operator goal (LTG);10 days -SA Progress/Outcomes (Bed Mobility Goal 1, OT) new goal - Row Name 02/04/25 1114 Bathing Goal 1 (OT) Activity/Device (Bathing Goal 1, OT) bathing skills, all -SA [place] Level/Cues Needed (Bathing Goal 1, OT) independent -SA Time Frame (Bathing Goal 1, OT) intermediate goal (LTG);10 days -SA Progress/Outcomes (Bathing Goal 1, OT) new goal - Row Name 02/04/25 1114 Dressing Goal 1 (OT) Activity/Device (Dressing Goal 1, OT) dressing skills, all -SA [place]/Cues Needed (Dressing Goal 1, OT) independent -SA Time Frame (Dressing Goal 1, OT) ski tow operator goal (LTG);10 days -SA Progress/Outcome (Dressing Goal 1, OT) [facility] [place] - Row Name 02/04/25 111 Problem Specific Goal 1 (OT) Problem Specific Goal 1 (OT) Pt will recall 3/3 spinal precautions without cues -SA Time Frame (Problem Specific Goal 1, OT) short term goal (STG);5 days -SA Progress/Outcome (Problem Specific Goal 1, OT) [facility] [place] -[facility] Name 02/04/25 1114 Therapy Assessment/Plan (OT) Planned Therapy Interventions (OT) activity tolerance training;adaptive equipment training;BADL retraining;functional balance retraining;occupation/activity based interventions;patient/caregiver educa tion/training;ROM/therapeutic exercise;strengthening exercise;transfer/mobility retraining - User Metcalf (r) = Recorded By, (t) = Taken By, (c) = Cosigned By Initials Name Provider Type SA Winter Burton, OT Occupational Therapist Clinical Impression Row Name 02/04/25 0978 Pain Assessment Pretreatment Pain Rating 2/10 -SA Posttreatment Pain Rating 6/10 -SA Pain Location back -SA Pain Side/Orientation lower -SA Pain Management Interventions activity modification encouraged;exercise or physical activity utilized;positioning techniques utilized;nursing notified - Response to Pain Interventions activity participation with tolerable pain - Row Name 02/04/25 0902 Plan of Care Review Plan of Care Reviewed With patient -SA Progress no change -SA Outcome Evaluation OT evaluation completed. Pt educated on spinal precautions. Pt provided and educated on AE, would benefit from additional ecduation and practice. Pt required Min A for bed mobility. Pt completed fxnl mobility and toilet transfer with RWx and CGA. Pt required Min A for LBD this date. Pt presents below baseline level of functioning secondary to weakness, decreased activity tolerance, pain, and decreased independence with ADLs and fxnl mobility and would benefit from skilled IPOT services to improve fxnl status. OT recommends SNF at discharge. -[facility] Name 02/04/25 0957 Therapy Assessment/Plan (OT) Rehab Potential (OT) good - Criteria for Skilled Therapeutic Interventions Met (OT) yes;meets criteria;skilled treatment is necessary - Therapy Frequency (OT) daily - Predicted Duration of Therapy Intervention (OT) 10 days -[facility] Name 02/04/25 0957 Therapy Plan Review/Discharge Plan (OT) Anticipated Discharge Disposition (OT) shelter facility -[facility] Name 02/04/2557 Vital Signs Pre Systolic BP Rehab 120 -SA Pre Treatment Diastolic BP 66 -SA Pre SpO2 (%) 96 -SA O2 Delivery Pre Treatment room air - Pre Patient Position Supine -[facility] Name 02/04/2557 Positioning and Restraints Pre-Treatment Position in bed -SA Post Treatment Position chair -SA In Chair notified nsg;reclined;call light within reach;encouraged to call for assist;exit alarm on;with family/caregiver;waffle cushion;legs elevated - User Metcalf (r) = Recorded By, (t) = Taken By, (c) = Cosigned By Initials Name Provider Type Winter Galvan OT Occupational Therapist Outcome Measures Row Name 02/04/25 1116 How much help from another is currently needed... Putting on and taking off regular lower body clothing? 3 -SA Bathing (including washing, rinsing, and drying) 3 -SA Toileting (which includes using toilet bed smith or urinal) 3 -SA Putting on and taking off regular upper body clothing 3 -SA Taking care of personal grooming (such as brushing teeth) 4 -SA Eating meals 4 -SA AM-PAC 6 Clicks Score (OT) 20 -SA Row Name 02/04/25 111 Functional Assessment Outcome Measure Options AM-PAC 6 Clicks Daily Activity (OT) - User Metcalf (r) = Recorded By, (t) = Taken By, (c) = Cosigned By Initials Name Provider Type Winter Galvan OT Occupational Therapist Occupational Therapy Education Title: PT OT FINISHED YARN EXAMINER Therapies (In Progress) Topic: Occupational Therapy (In Progress) Point: ADL training (In Progress) Learning Progress Summary Patient Acceptance, E,D, NR by at 02/04/2025 1116 Point: Precautions (In Progress) Learning Progress Summary Patient Acceptance, E,D, NR by at 02/04/2025 1116 Point: Body mechanics (In Progress) Learning Progress Summary Patient Acceptance, E,D, NR by at 02/04/2025 1116 User Metcalf Initials Effective Dates Name Provider Type Discipline 12/18/24 - Winter Burton OT Occupational Therapist OT OT Recommendation and Plan Planned Therapy Interventions (OT): activity tolerance training, adaptive equipment training, BADL retraining, functional balance retraining, occupation/activity based interventions, patient/caregiver education/training, ROM/therapeutic exercise, strengthening exercise, transfer/mobility retraining Therapy Frequency (OT): daily Plan of Care Review Plan of Care Reviewed With: patient Progress: no change Outcome Evaluation: OT evaluation completed. Pt educated on spinal precautions. Pt provided and educated on AE, would benefit from additional ecduation and practice. Pt required Min A for bed mobility. Pt completed fxnl mobility and toilet transfer with RWx and CGA. Pt required Min A for LBD this date. Pt presents below baseline level of functioning secondary to weakness, decreased activity tolerance, pain, and decreased independence with ADLs and fxnl mobility and would benefit from skilled IPOT services to improve fxnl status. OT recommends SNF at discharge. Time Calculation: Evaluation Complexity (OT) Review Occupational Profile/Medical/Therapy History Complexity: expanded/moderate complexity Assessment, Occupational Performance/Identification of Deficit Complexity: 3-5 performance deficits Clinical Decision Making Complexity (OT): detailed assessment/moderate complexity Overall Complexity of Evaluation (OT): moderate complexity Time Calculation- OT Row Name 02/04/25 1117 Time Calculation- OT OT Start Time 0835 - OT Received On 02/04/25 - OT Goal Re-Cert Due Date 02/14/25 - Timed Charges 88905 - OT Self Care/Mgmt Minutes 15 -SA Untimed Charges OT Eval/Re-eval Minutes 65 -SA Total Minutes Timed Charges Total Minutes 15 -SA Untimed Charges Total Minutes 65 -SA Total Minutes 80 -SA User Metcalf (r) = Recorded By, (t) = Taken By, (c) = Cosigned By Initials Name Provider Type SA Winter Burton OT Occupational Therapist Therapy Charges for Today Code Description Service Date Service Provider Modifiers Qty [id number] OT SELF CARE/MGMT/TRAIN EA 15 MIN 02/04/2025 Winter Burton OT GO 1 [id number] HC-OT EVAL MOD COMPLEXITY 5 02/04/2025 Winter Burton OT 1 Winter Burton OT 02/04/2025 1119 documented in this encounter Discharge Instructions * Discharge Instr - Activity* Loren Floyd RN - 02/06/2025 7:54 AM EDT - x1 assist walker and gait belt - As directed by your physician and physical therapist * Discharge Instr - Diet* Loren Floyd RN - 02/06/2025 7:54 AM EDT - Regular diet * Attachments The following attachments cannot be sent through Care Everywhere. * Laminectomy Care After (Senegalese) * Incision Care Adult [id number] (Senegalese) * How to Use a Walker (Senegalese) * Fall Prevention in the Home Adult [id number] ([place]e) documented in this encounter Medications at Time of Discharge acetaminophen (TYLENOL) 500 MG tablet Take 2 tablets by mouth Every Night. bisacodyl (DULCOLAX) 10 MG suppository Insert 1 suppository into the rectum Daily As Needed for Constipation (Use if bisacodyl oral is ineffective). 02/07/2025 bisacodyl (DULCOLAX) 5 MG EC tablet Take 1 tablet by mouth Daily As Needed for Constipation (Use if polyethylene glycol is ineffective). 02/07/2025 Coenzyme H97-Ghwiuvx E (QUNOL ULTRA COQ10 PO) Take 100 mg by mouth Daily. cyclobenzaprine (FLEXERIL) 10 MG tablet Take 1 tablet by mouth 3 (Three) Times a Day As Needed for Muscle Spasms. 02/07/2025 diphenhydrAMINE (BENADRYL) 25 mg capsule Take 1 capsule by mouth At Night As Needed for Sleep. gabapentin (NEURONTIN) 300 MG capsuleIndication s:S/P lumbar spinal fusion Take 1 capsule by mouth 2 (Two) Times a Day. 20 capsule 02/07/2025 lisinopril-hydroc hlorothiazide (PRINZIDE,ZESTORE TIC) 20-12.5 MG per tablet Take 1 tablet by mouth Daily. 05/05/2022 omeprazole (priLOSEC) 40 MG capsule Take 1 capsule by mouth 2 (Two) Times a Day. 03/16/2022 polyethylene glycol (MIRALAX) 17 g packet Take 17 g by mouth Daily As Needed (Use if senna-docusate is ineffective). 02/07/2025 pravastatin (PRAVACHOL) 40 MG tablet Take 1 tablet by mouth Daily. 05/05/2022 sennosides-docusa te (PERICOLACE) 8.6-50 MG per tablet Take 2 tablets by mouth 2 (Two) Times a Day As Needed for Constipation. 02/07/2025 Turmeric 500 MG capsule Take 1 capsule by mouth Daily. acetaminophen (TYLENOL) 650 MG 8 hr tablet Take 2 tablets by mouth Every Morning. oxyCODONE (ROXICODONE) 10 MG tabletIndications :S/P lumbar spinal fusion Take 1 tablet by mouth Every 4 (Four) Hours As Needed for Severe Pain for up to 3 days. 20 tablet 02/07/2025 documented as of this encounter Progress Notes * Vini Peterson MD - 02/07/2025 8:20 AM EDT Ortho Spine Progress Note LOS: 4 days Patient Care Team: Placido Mercado MD as PCP - General (Family Medicine) Subjective Pt awake and alert sitting up in bed. Daughter at Bedside. Rough spell last night with back and left leg pain and restlessness. Actually felt better when able to get OOB and stand/walk. Then did sleep 4 hours straight. Objective Vital Signs: BP 136/84 (BP Location: Left arm, Patient Position: Lying) Pulse 94 Temp 97.7 ??F (36.5 ??C) (Oral) Resp 18 Ht 160 cm (63 ) Wt 77.1 kg (170 lb) SpO2 96% BMI 30.11 kg/m?? Labs: Lab Results (last 24 hours) No results found for the last 24 hours. Physical Exam: Continued partial left foot drop which is chronic, otherwise Neurovascular intact. Calves soft, non-tender. Assessment & Plan Doing fairly well. Some ups and downs but in general is improving. It is a good sign that back and leg felt better last night when stood and walked. It is a sign of nerve irritation and not nerve compression. OK to go to Rehab later today as planned. OK to change dressing as needed. Wound closed with vicryl and steri-strips. OK to shower. F/U 1 month, already ordered. Vini Peterson MD 02/07/25 08:20 EDT * Pavithra Oakes MD - 02/06/2025 1:25 PM EDT IM progress note Gladys Mendes [id number] 1945 LOS: 3 days Attending: Vini Peterson MD Primary Care Provider: Placido Mercado MD Chief Complaint/Reason for visit: No chief complaint on file. Subjective Doing well. Adequate pain control. Denies f/c/n/v/sob/cp. ( Seen, agree. HV is out. Ready to go to rehab tomorrow)wy Objective Visit Vitals BP 117/68 (BP Location: Left arm, Patient Position: Sitting) Pulse 94 Temp 98.8 ??F (37.1 ??C) (Oral) Resp 16 Ht 160 cm (63 ) Wt 77.1 kg (170 lb) SpO2 98% BMI 30.11 kg/m?? Temp (24hrs), Av ??F (37.2 ??C), Min:98.2 ??F (36.8 ??C), Max:99.7 ??F (37.6 ??C) Physical Therapy: Pt reporting decreased pain this date following functional mobility this date butcontinues to require min-A for transfers and gait. Pt continues to benefit from IP PT services to address functional deficits and promote return to baseline. Given that pt lives alone and her consistent high pain levels she is unsafe to return straight home at this time. Recommend SNF for best functional outcome. Physical Exam: General Appearance: Alert, cooperative, in no acute distress Head: Normocephalic, without obvious abnormality, atraumatic Lungs: Normal effort, symmetric chest rise, clear to auscultation bilaterally Heart: Regular rhythm and normal rate, normal S1 and S2 Abdomen: Normal bowel sounds, no masses, no organomegaly, soft nontender, nondistended, no guarding, no rebound tenderness Back: Intact dressing with drain to Hemovac-out 02/05/25 Extremities: No clubbing, cyanosis or edema. No deformities. Pulses: Pulses palpable and equal bilaterally Skin: No bleeding, bruising or rash Neuro: Partial left foot drop, otherwise no focal deficit. Results Review: I reviewed the patient's new clinical results. Results from last 7 days Lab Units 02/04/25 0615 HEMOGLOBIN g/dL 9.7* HEMATOCRIT % 31.1* Results from last 7 days Lab Units 02/05/25 0659 02/04/25 0615 SODIUM mmol/L -- 138 POTASSIUM mmol/L 3.9 5.4* CHLORIDE mmol/L -- 105 CO2 mmol/L -- 27.0 BUN mg/dL -- 11.2 CREATININE mg/dL -- 0.87 CALCIUM mg/dL -- 9.5 GLUCOSE mg/dL -- 101* I reviewed the patient's new imaging including images and reports. All medications reviewed. gabapentin, 300 mg, Oral, BID pantoprazole, 40 mg, Oral, BID AC pravastatin, 40 mg, Oral, Daily acetaminophen, 650 mg, Q4H PRN Or acetaminophen, 650 mg, Q4H PRN Or acetaminophen, 650 mg, Q4H PRN senna-docusate sodium, 2 tablet, BID PRN And polyethylene glycol, 17 g, Daily PRN And bisacodyl, 5 mg, Daily PRN And bisacodyl, 10 mg, Daily PRN cyclobenzaprine, 10 mg, TID PRN labetalol, 10 mg, Q4H PRN ondansetron ODT, 4 mg, Q6H PRN oxyCODONE, 5 mg, Q4H PRN Or oxyCODONE, 10 mg, Q4H PRN Assessment & Plan S/P lumbar spinal fusion (revision decompression L4-5, posterior lateral fusion L4-5) HTN (hypertension) Hyperlipidemia GERD (gastroesophageal reflux disease) Acute postoperative pain Lumbar stenosis with neurogenic claudication Plan 1. PT/OT, continue 2. Pain control-prns 3. IS-encouraged 4. DVT proph-mechanicals, early mobilization 5. Bowel regimen 6. Monitor post-op labs 7. Discharge planning for [place] tomorrow - Hypertension: Resume home medications as appropriate, formulary substitution when indicated. Holding parameters. PRN medications for elevated blood pressure. -Dyslipidemia: Resume home regimen statin ( formulary substitution when appropriate). -GERD: Resume PPI. Formulary substitution when indicated. - Mild hypokalemia- resolved Yuko Collier APRN 02/06/25 13:25 EDT I have personally performed the evaluation on this patient. My history is consistent with HPI obtained. My exam findings are listed above. I have personally reviewed and formulated the above treatment plan with Yuko Collier APRN. * Vini Peterson MD - 02/06/2025 7:56 AM EDT Ortho Spine Progress Note LOS: 3 days Patient Care Team: Placido Mercado MD as PCP - General (Family Medicine) Subjective Pt up and walking in room, then sitting up in chair. Still a fair amount of back pain but continues to improve. Granddaughter at bedside. Objective Vital Signs: BP 124/85 (BP Location: Left arm, Patient Position: Sitting) Pulse 94 Temp 98.2 ??F (36.8 ??C) (Oral) Resp 16 Ht 160 cm (63 ) Wt 77.1 kg (170 lb) SpO2 98% BMI 30.11 kg/m?? Labs: Lab Results (last 24 hours) Procedure Component Value Units Date/Time Potassium [[id number]] (Normal) Collected: 02/05/2559 Specimen: Blood Updated: 02/05/25824 Potassium 3.9 mmol/L Physical Exam: Continued partial left foot drop which is chronic, otherwise Neurovascular intact. Calves soft, non-tender. Assessment & Plan Doing well. Steady, gradual improvement. OK to go to Rehab when bed available from my standpoint. OK to change dressing as needed. Wound closed with vicryl and steri-strips. OK to shower as of today.F/U 1 month. Vini Peterson MD 02/06/25 07:56 EDT * Thuy Robertson APRN - 02/05/2025 11:02 AM EDT IM progress note Gladys Mendes [id number] 1945 LOS: 2 days Attending: Vini Peterson MD Primary Care Provider: Placido Mercado MD Chief Complaint/Reason for visit: No chief complaint on file. Subjective Doing well. Adequate pain control. Denies f/c/n/v/sob/cp. Objective Visit Vitals BP 132/86 (BP Location: Left arm, Patient Position: Lying) Pulse 90 Temp 98.3 ??F (36.8 ??C) (Oral) Resp 18 Ht 160 cm (63 ) Wt 77.1 kg (170 lb) SpO2 98% BMI 30.11 kg/m?? Temp (24hrs), Av.3 ??F (36.8 ??C), Min:98.3 ??F (36.8 ??C), Max:98.5 ??F (36.9 ??C) Physical Therapy: Pt reporting decreased pain this date following functional mobility this date butcontinues to require min-A for transfers and gait. Pt continues to benefit from IP PT services to address functional deficits and promote return to baseline. Given that pt lives alone and her consistent high pain levels she is unsafe to return straight home at this time. Recommend SNF for best functional outcome. Physical Exam: General Appearance: Alert, cooperative, in no acute distress Head: Normocephalic, without obvious abnormality, atraumatic Lungs: Normal effort, symmetric chest rise, clear to auscultation bilaterally Heart: Regular rhythm and normal rate, normal S1 and S2 Abdomen: Normal bowel sounds, no masses, no organomegaly, soft nontender, nondistended, no guarding, no rebound tenderness Back: Intact dressing with drain to Hemovac-out 02/05/25 Extremities: No clubbing, cyanosis or edema. No deformities. Pulses: Pulses palpable and equal bilaterally Skin: No bleeding, bruising or rash Neuro: Partial left foot drop, otherwise no focal deficit. Results Review: I reviewed the patient's new clinical results. Results from last 7 days Lab Units 02/04/25 0615 HEMOGLOBIN g/dL 9.7* HEMATOCRIT % 31.1* Results from last 7 days Lab Units 02/05/25 0659 02/04/25 0615 SODIUM mmol/L -- 138 POTASSIUM mmol/L 3.9 5.4* CHLORIDE mmol/L -- 105 CO2 mmol/L -- 27.0 BUN mg/dL -- 11.2 CREATININE mg/dL -- 0.87 CALCIUM mg/dL -- 9.5 GLUCOSE mg/dL -- 101* I reviewed the patient's new imaging including images and reports. All medications reviewed. gabapentin, 300 mg, Oral, BID pantoprazole, 40 mg, Oral, BID AC pravastatin, 40 mg, Oral, Daily acetaminophen, 650 mg, Q4H PRN Or acetaminophen, 650 mg, Q4H PRN Or acetaminophen, 650 mg, Q4H PRN senna-docusate sodium, 2 tablet, BID PRN And polyethylene glycol, 17 g, Daily PRN And bisacodyl, 5 mg, Daily PRN And bisacodyl, 10 mg, Daily PRN cyclobenzaprine, 10 mg, TID PRN labetalol, 10 mg, Q4H PRN ondansetron ODT, 4 mg, Q6H PRN oxyCODONE, 5 mg, Q4H PRN Or oxyCODONE, 10 mg, Q4H PRN Assessment & Plan S/P lumbar spinal fusion (revision decompression L4-5, posterior lateral fusion L4-5) Lumbar stenosis with neurogenic claudication HTN (hypertension) Hyperlipidemia GERD (gastroesophageal reflux disease) Acute postoperative pain Plan 1. PT/OT, continue 2. Pain control-prns 3. IS-encouraged 4. DVT proph-mechanicals, early mobilization 5. Bowel regimen 6. Monitor post-op labs 7. Discharge planning for home versus inpatient rehab - Hypertension: Resume home medications as appropriate, formulary substitution when indicated. Holding parameters. PRN medications for elevated blood pressure. -Dyslipidemia: Resume home regimen statin ( formulary substitution when appropriate). -GERD: Resume PPI. Formulary substitution when indicated. - Mild hypokalemia- roes Robertson APRN 02/05/25 11:05 EDT * Vini Peterson MD - 02/05/2025 7:58 AM EDT Ortho Spine Progress Note LOS: 2 days Patient Care Team: Placido Mercado MD as PCP - General (Family Medicine) Subjective Pt awake and alert in bed. Still has pain but says it is some better, slept better last night and most of pain is now in the back, less down the legs. Objective Vital Signs: BP 132/86 (BP Location: Left arm, Patient Position: Lying) Pulse 90 Temp 98.3 ??F (36.8 ??C) (Oral) Resp 18 Ht 160 cm (63 ) Wt 77.1 kg (170 lb) SpO2 98% BMI 30.11 kg/m?? Labs: Lab Results (last 24 hours) Procedure Component Value Units Date/Time Potassium [[id number]] Collected: 02/05/25 0659 Specimen: Blood Updated: 02/05/25 0754 Physical Exam: Continued partial left foot drop which is chronic, otherwise Neurovascular intact. Calves soft, non-tender. Assessment & Plan Doing better. Walked in [place] 2-3x yesterday. Will D/C Drain, dry dressing change. Likely will need rehab placement. OK to go from my stand point tomorrow if medically ready per Dr. Nichols. Continue PT/OT. Vini Peterson MD 02/05/25 07:58 EDT * Pavithra Oakes MD - 02/04/2025 4:00 PM EDT Images from the original note were not included. IM progress note Gladys Mendes [id number] 1945 LOS: 1 day Attending: Vini Petersno MD Primary Care Provider: Placido Mercado MD Chief Complaint/Reason for visit: No chief complaint on file. Subjective Feels okay but has some postoperative pain in her back. Some leg pain but that has improved. No nausea or vomiting. No shortness of breath. Was seen by PT and OT, both so far recommending inpatient rehab pending further progress Objective Visit Vitals BP 114/67 (BP Location: Left arm, Patient Position: Sitting) Pulse 100 Temp 98.7 ??F (37.1 ??C) (Oral) Resp 18 Ht 160 cm (63 ) Wt 77.1 kg (170 lb) SpO2 95% BMI 30.11 kg/m?? Temp (24hrs), Av.2 ??F (36.8 ??C), Min:97.6 ??F (36.4 ??C), Max:98.7 ??F (37.1 ??C) Intake/Output: Intake/Output Summary (Last 24 hours) at 02/04/2025 1600 Last data filed at 02/04/2025 1400 Gross per 24 hour Intake 220 ml Output 130 ml Net 90 ml Physical Therapy: Goal Outcome Evaluation: Plan of Care Reviewed With: patient, family Progress: no change Outcome Evaluation: Pt ambulates with RWx and min-A for stability but continues to be limited by pain and limited activity tolerance. Pt would benefit from continued IP PT services to address functional deficits and facilitate return to baseline. Recommend SNF following d/c. Anticipated Discharge Disposition (PT): shelter facility Physical Exam: General Appearance: Alert, cooperative, in no acute distress Head: Normocephalic, without obvious abnormality, atraumatic Lungs: Normal effort, symmetric chest rise, clear to auscultation bilaterally Heart: Regular rhythm and normal rate, normal S1 and S2 Abdomen: Normal bowel sounds, no masses, no organomegaly, soft nontender, nondistended, no guarding, no rebound tenderness Back: Intact dressing with drain to Hemovac present. Extremities: No clubbing, cyanosis or edema. No deformities. Pulses: Pulses palpable and equal bilaterally Skin: No bleeding, bruising or rash Neuro: Partial left foot drop, otherwise no focal deficit. Results Review: I reviewed the patient's new clinical results. Results from last 7 days Lab Units 02/04/25 0615 01/29/25 0958 WBC 10*3/mm3 -- 4.48 HEMOGLOBIN g/dL 9.7* 11.0* HEMATOCRIT % 31.1* 36.0 PLATELETS 10*3/mm3 -- 313 Results from last 7 days Lab Units 02/04/25 0615 01/29/25 0958 SODIUM mmol/L 138 -- POTASSIUM mmol/L 5.4* 5.2 CHLORIDE mmol/L 105 -- CO2 mmol/L 27.0 -- BUN mg/dL 11.2 -- CREATININE mg/dL 0.87 -- CALCIUM mg/dL 9.5 -- GLUCOSE mg/dL 101* -- I reviewed the patient's new imaging including images and reports. All medications reviewed. gabapentin, 300 mg, Oral, BID pantoprazole, 40 mg, Oral, BID AC pravastatin, 40 mg, Oral, Daily sodium chloride, 3 mL, Intravenous, Q12H acetaminophen, 650 mg, Q4H PRN Or acetaminophen, 650 mg, Q4H PRN Or acetaminophen, 650 mg, Q4H PRN senna-docusate sodium, 2 tablet, BID PRN And polyethylene glycol, 17 g, Daily PRN And bisacodyl, 5 mg, Daily PRN And bisacodyl, 10 mg, Daily PRN cyclobenzaprine, 10 mg, TID PRN HYDROmorphone, 0.25 mg, Q4H PRN And naloxone, 0.4 mg, Q5 Min PRN HYDROmorphone, 0.25 mg, Q2H PRN And naloxone, 0.4 mg, Q5 Min PRN labetalol, 10 mg, Q4H PRN ondansetron, 4 mg, Q6H PRN oxyCODONE, 10 mg, Q6H PRN oxyCODONE, 5 mg, Q4H PRN sodium chloride, 500 mL, TID PRN sodium chloride, 3-10 mL, PRN sodium chloride, 40 mL, PRN Assessment & Plan S/P lumbar spinal fusion (revision decompression L4-5, posterior lateral fusion L4-5) HTN (hypertension) Hyperlipidemia GERD (gastroesophageal reflux disease) Lumbar stenosis with neurogenic claudication Plan 1. PT/OT, continue 2. Pain control-prns 3. IS-encouraged 4. DVT proph-mechanicals, early mobilization 5. Bowel regimen 6. Monitor post-op labs 7. Discharge planning, home versus inpatient rehab - Hypertension: Resume home medications as appropriate, formulary substitution when indicated. Holding parameters. PRN medications for elevated blood pressure. -Dyslipidemia: Resume home regimen statin ( formulary substitution when appropriate). -GERD: Resume PPI. Formulary substitution when indicated. - Mild hypokalemia, could be related to DEVIN inhibitor she takes at home, on hold and IV fluids which have been discontinued. Will recheck in AM. Treat if higher. Pavithra Oakes MD 02/04/25 16:00 EDT * Vini Peterson MD - 02/04/2025 8:16 AM EDT Images from the original note were not included. Ortho Spine Progress Note LOS: 1 day Patient Care Team: Placido Mercado MD as PCP - General (Family Medicine) Subjective Pt awake and alert in bed. Daughter at bedside. She has eaten breakfast. She reports intermittent pain in back and legs, comes and goes. Worst when gets up, not as bad when up and walking.She is using ice and her ordered pain meds. Objective Vital Signs: BP 120/66 (BP Location: Right arm, Patient Position: Lying) Pulse 100 Temp 98.4 ??F (36.9 ??C) (Oral) Resp 18 Ht 160 cm (63 ) Wt 77.1 kg (170 lb) SpO2 95% BMI 30.11 kg/m?? Labs: Lab Results (last 24 hours) Procedure Component Value Units Date/Time Basic Metabolic Panel [[id number]] (Abnormal) Collected: 02/04/25614 Specimen: Blood Updated: 02/04/25700 Glucose 101 mg/dL BUN 11.2 mg/dL Creatinine 0.87 mg/dL Sodium 138 mmol/L Potassium 5.4 mmol/L Chloride 105 mmol/L CO2 27.0 mmol/L Calcium 9.5 mg/dL BUN/Creatinine Ratio 12.9 Anion Gap 6.0 mmol/L eGFR 68.7 mL/min/1.73 Narrative: GFR Categories in Chronic Kidney Disease (CKD) GFR Category GFR (mL/min/1.73) Interpretation G1 90 or greater Normal or high (1) G2 60-89 Mild decrease (1) G3a 45-59 Mild to moderate decrease G3b 30-44 Moderate to severe decrease G4 15-29 Severe decrease G5 14 or less Kidney failure (1)In the absence of evidence of kidney disease, neither GFR category G1 or G2 fulfill the criteriafor CKD. eGFR calculation 2020 CKD-EPI creatinine equation, which does not include race as a factor Hemoglobin & Hematocrit, Blood [[id number]] (Abnormal) Collected: 02/04/25614 Specimen: Blood Updated: 02/04/25636 Hemoglobin 9.7 g/dL Hematocrit 31.1 % Physical Exam: Continued partial left foot drop which is chronic, otherwise Neurovascular intact. Calves soft, non-tender. Assessment & Plan Doing pretty well on POD #1 all things considered. Needs to continue to work with PT/OT and nursing to mobilize. Will leave drain in today. 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 Vini Peterson MD 02/04/25 08:16 EDT * Vini Peterson MD - 02/03/2025 3:49 PM EDT Ortho Spine Progress Note LOS: 0 days Patient Care Team: Placido Mercado MD as PCP - General (Family Medicine) Subjective Pt is up and walking with PT in PACU. She reports some back pain and one episode of leftleg pain that resolved as of now. She is waiting a bed availability on Floor. Objective Vital Signs: BP 121/73 Pulse 90 Temp 97.2 ??F (36.2 ??C) Resp 12 Ht 160 cm (63 ) Wt 77.1 kg (170 lb) SpO2 97% BMI 30.11 kg/m?? Labs: Lab Results (last 24 hours) No results found for the last 24 hours. Physical Exam: Continued partial left foot drop which is chronic, otherwise Neurovascular intact. Calves soft, non-tender. Assessment & Plan Doing well, still in PACU. Need to continue to mobilize. Case management for home needs vs rehab placement. Vini Peterson MD 02/03/25 15:49 EDT documented in this encounter H&P Notes * Pavithra Oakes MD - 02/03/2025 5:33 PM EDT Patient Name: Gladys Mendes : 1945 DOS: 02/03/2025 Attending: Vini Peterson MD Primary Care Provider: Placido Mercado MD Chief complaint: Back pain, neurogenic claudication. Subjective Patient is a pleasant 79 y.o. female presented for scheduled surgery by Dr. Peterson. Patient is known to us from prior hospitalization in 2021 when she had decompression and fusion forspinal stenosis. Per Dr. Peterson's note ( Patient presents as a h/o L4-5 fusion 3 years 2.5 years ago. She did well until she fell approx 7 months ago with increasing LBP and leg pain since. Pain not responsive to conservative care. Cfound to have pseudarthrosis L4-5 with recurrent stenosis.). Patient underwent the following procedures: #1 Revision Decompression of L4-5 #2 Posterior Lateral Fusion of L4-5 #3 Pedicle Screws with cement augmentation Placed at L4-5 #4 Local Bone mixed with Purified Allograft Placed in Lateral Gutters #5 Removal of indwelling pedicle screws with retention of inter-body cage surgery was done under general anesthesia, was tolerated well, she was admitted for further management. Seen in her room postop, doing fairly well. Controlled postoperative pain. She has ambulated with physical therapy. Leg pain improved. No nausea, vomiting, or shortness of breath. Allergies: No Known Allergies Meds: Medications Prior to Admission Medication Sig Dispense Refill Last Dose/Taking acetaminophen (TYLENOL) 500 MG tablet Take 2 tablets by mouth Every Night. 02/02/2025 Evening Coenzyme E58-Yoiwjup E (QUNOL ULTRA COQ10 PO) Take 100 mg by mouth Daily. 02/02/2025 Morning diphenhydrAMINE (BENADRYL) 25 mg capsule Take 1 capsule by mouth At Night As Needed for Sleep. 02/02/2025 Evening gabapentin (NEURONTIN) 300 MG capsule Take 1 capsule by mouth 2 (Two) Times a Day. 02/03/2025 at 3:00AM lisinopril-hydrochlorothiazide (PRINZIDE,ZESTORETIC) 20-12.5 MG per tablet Take 1 tablet by mouth Daily. 02/02/2025 Morning omeprazole (priLOSEC) 40 MG capsule Take 1 capsule by mouth 2 (Two) Times a Day. 02/03/2025 at 3:00 AM oxyCODONE-acetaminophen (PERCOCET) 5-325 MG per tablet Take 1 tablet by mouth 3 (Three) Times a DayAs Needed. for pain 02/03/2025 at 3:00 AM pravastatin (PRAVACHOL) 40 MG tablet Take 1 tablet by mouth Daily. 02/02/2025 Evening Turmeric 500 MG capsule Take 1 capsule by mouth Daily. 02/02/2025 Morning acetaminophen (TYLENOL) 650 MG 8 hr tablet Take 2 tablets by mouth Every Morning. Past Medical History: Diagnosis Date Colitis Elevated cholesterol GERD (gastroesophageal reflux disease) History of transfusion [facility], no reaction Hyperlipidemia Hypertension Past Surgical History: Procedure Laterality Date BREAST BIOPSY Right multiple COLONOSCOPY HEMORRHOIDECTOMY LUMBAR DISCECTOMY FUSION INSTRUMENTATION N/A 05/16/2022 Procedure: LUMBAR DECOMPRESSION WITH FUSION INSTRUMENTATION WITH PEDICLE SCREWS, CAGE AND ALLOGRAFTL4-5; Surgeon: Vini Peterson MD; Location: [facility]; Service: Orthopedic Spine; Laterality: N/A; MASTOIDECTOMY Left x3 TUBAL ABDOMINAL LIGATION History reviewed. No pertinent family history. Social History Tobacco Use Smoking status: Former Smokeless tobacco: Never Vaping Use Vaping status: Never Used Substance Use Topics Alcohol use: Never Drug use: Never Review of Systems Pertinent items are noted in HPI Vital Signs BP 133/87 (BP Location: Right arm, Patient Position: Lying) Pulse 93 Temp 97.6 ??F (36.4 ??C) (Oral) Resp 18 Ht 160 cm (63 ) Wt 77.1 kg (170 lb) SpO2 98% BMI 30.11 kg/m?? Physical Exam: General Appearance: Alert, cooperative, in no acute distress Head: Normocephalic, without obvious abnormality, atraumatic Eyes: Lids and lashes normal, conjunctivae and sclerae normal, no icterus, no pallor, corneas clear, Ears: Ears appear intact with no abnormalities noted Throat: No oral lesions, no thrush, oral mucosa moist Neck: No adenopathy, supple, trachea midline, no thyromegaly Lungs: Clear to auscultation,respirations regular, even and unlabored Heart: Regular rhythm and normal rate, normal S1 and S2, no murmur, no gallop Abdomen: Normal bowel sounds, no masses, no organomegaly, soft, nontender, nondistended, no guarding, no rebound tenderness Genitalia: Deferred Extremities: No edema, no cyanosis, no redness Back: Intact dressing with drain to Hemovac. Pulses: Pulses palpable and equal bilaterally Skin: No bleeding, bruising or rash Neurologic: Cranial nerves 2 - 12 grossly intact, no gross motor deficit. I reviewed the patient's new clinical results. Results from last 7 days Lab Units 01/29/25 0958 WBC 10*3/mm3 4.48 HEMOGLOBIN g/dL 11.0* HEMATOCRIT % 36.0 PLATELETS 10*3/mm3 313 Results from last 7 days Lab Units 01/29/25 0958 POTASSIUM mmol/L 5.2 Lab Results Component Value Date HGBA1C 5.60 01/29/2025 Assessment and Plan: S/P lumbar spinal fusion (revision decompression L4-5, posterior lateral fusion L4-5) HTN (hypertension) Hyperlipidemia GERD (gastroesophageal reflux disease) Lumbar stenosis with neurogenic claudication Plan 1. PT/OT early mobilization 2. Pain control-prns, multimodal approach, including resumption of patient's Neurontin 3. IS-encourage 4. DVT proph- mechanicals 5. Bowel regimen 6. Resume home medications as appropriate 7. Monitor post-op labs 8. Discharge planning . - Hypertension: Resume home medications as appropriate, formulary substitution when indicated. Holding parameters. PRN medications for elevated blood pressure. -Dyslipidemia: Resume home regimen statin ( formulary substitution when appropriate). -GERD: Resume PPI. Formulary substitution when indicated. Daniele disclaimer: Part of this encounter note is an electronic sample hand/translation of spoken language to printed text. The electronic translation of spoken language may permit erroneous, or at times, nonsensicalwords or phrases to be inadvertently transcribed; Although I have reviewed the note for such errors, some may still exist. Pavithra Oakes MD 02/03/25 17:34 EDT * Vini Peterson MD - 02/03/2025 6:50 AM EDT Pre-Op H&P Gladys Mendes [id number] Chief complaint: Back pain Subjective: Patient is a 79 y.o.female presents for scheduled surgery by Dr. Peterson. She anticipates a L 4-5 REVISION DECOMPRESSION WITH REVISED FUSION WITH PEDICLE SCREWS, CEMENT AUGMENTATION AND POSSIBLE EXTENSION OF FUSION today. She had previous lumbar fusion on 05/16/2022. She states about 3 months ago she had reoccurrence of low back pain. The pain radiates down BLE. No saddle anesthesia. Conservative treatments failed to provide lasting benefits. Review of Systems: Constitutional-- No fever, chills or sweats. No fatigue. CV-- No chest pain, palpitation or syncope. +HTN, HLD Resp-- No SOB, cough, hemoptysis Skin--No rashes or lesions Allergies: No Known Allergies Home Meds: Medications Prior to Admission Medication Sig Dispense Refill Last Dose/Taking acetaminophen (TYLENOL) 500 MG tablet Take 2 tablets by mouth Every Night. 02/02/2025 Evening Coenzyme M16-Arelixm E (QUNOL ULTRA COQ10 PO) Take 100 mg by mouth Daily. 02/02/2025 Morning diphenhydrAMINE (BENADRYL) 25 mg capsule Take 1 capsule by mouth At Night As Needed for Sleep. 02/02/2025 Evening gabapentin (NEURONTIN) 300 MG capsule Take 1 capsule by mouth 2 (Two) Times a Day. 02/03/2025 at 3:00AM lisinopril-hydrochlorothiazide (PRINZIDE,ZESTORETIC) 20-12.5 MG per tablet Take 1 tablet by mouth Daily. 02/02/2025 Morning omeprazole (priLOSEC) 40 MG capsule Take 1 capsule by mouth 2 (Two) Times a Day. 02/03/2025 at 3:00 AM oxyCODONE-acetaminophen (PERCOCET) 5-325 MG per tablet Take 1 tablet by mouth 3 (Three) Times a DayAs Needed. for pain 02/03/2025 at 3:00 AM pravastatin (PRAVACHOL) 40 MG tablet Take 1 tablet by mouth Daily. 02/02/2025 Evening Turmeric 500 MG capsule Take 1 capsule by mouth Daily. 02/02/2025 Morning acetaminophen (TYLENOL) 650 MG 8 hr tablet Take 2 tablets by mouth Every Morning. PMH: Past Medical History: Diagnosis Date Colitis Elevated cholesterol GERD (gastroesophageal reflux disease) History of transfusion [facility], no reaction Hyperlipidemia Hypertension PSH: Past Surgical History: Procedure Laterality Date BREAST BIOPSY Right multiple COLONOSCOPY HEMORRHOIDECTOMY LUMBAR DISCECTOMY FUSION INSTRUMENTATION N/A 05/16/2022 Procedure: LUMBAR DECOMPRESSION WITH FUSION INSTRUMENTATION WITH PEDICLE SCREWS, CAGE AND ALLOGRAFTL4-5; Surgeon: Vini Peterson MD; Location: [facility]; Service: Orthopedic Spine; Laterality: N/A; MASTOIDECTOMY Left x3 TUBAL ABDOMINAL LIGATION Immunization History: Influenza: No Pneumococcal: UTD Tetanus: Unknown Social History: Tobacco: Social History Tobacco Use Smoking Status Former Smokeless Tobacco Never Alcohol: Social History Substance and Sexual Activity Alcohol Use Never Physical Exam:BP 111/83 (BP Location: Right arm, Patient Position: Lying) Pulse 74 Temp 97.9 ??F (36.6 ??C) (Temporal) Resp 16 Ht 160 cm (63 ) Wt 77.1 kg (170 lb) SpO2 97% BMI 30.11 kg/m?? General Appearance: Alert, cooperative, no distress, appears stated age Head: Normocephalic, without obvious abnormality, atraumatic Lungs: Clear to auscultation bilaterally, respirations unlabored Heart: Regular rate and rhythm, S1 and S2 normal Abdomen: Soft without tenderness Extremities: Extremities normal, atraumatic, no cyanosis or edema Skin: Skin color, texture, turgor normal, no rashes or lesions Neurologic: Grossly intact Results Review: LABS: Lab Results Component Value Date WBC 4.48 01/29/2025 HGB 11.0 (L) 01/29/2025 HCT 36.0 01/29/2025 MCV 92.1 01/29/2025 PLT 313 01/29/2025 NEUTROABS 11.58 (H) 10/13/2023 GLUCOSE 108 (H) 10/15/2023 BUN 13 05/17/2022 CREATININE 0.95 05/17/2022 NA 137 10/15/2023 K 5.2 01/29/2025 CL 108 (H) 10/15/2023 CO2 17.0 (L) 05/17/2022 MG 1.6 (L) 10/21/2023 CALCIUM 7.5 (L) 05/17/2022 RADIOLOGY: Imaging Results (Last 72 Hours) No results found for the last 72 hours. I reviewed the patient's new clinical results. Cancer Staging (if applicable) Cancer Patient: __ yes __no __unknown; If yes, clinical stage T:__ N:__M:__, stage group or __N/A Impression: Back pain and BLE Neurogenic Claudication Plan: L 4-5 REVISION DECOMPRESSION WITH REVISED FUSION WITH PEDICLE SCREWS, CEMENT AUGMENTATION ANDPOSSIBLE EXTENSION OF FUSION Thuy Robertson APRN 02/03/2025 06:50 EDT documented in this encounter Nursing Notes * Ivana Espinoza RN - 02/07/2025 11:57 AM EDT Problem: Adult Inpatient Plan of Care Goal: Plan of Care Review Outcome: Met Goal: Patient-Specific Goal (Individualized) Outcome: Met Goal: Absence of Hospital-Acquired Illness or Injury Outcome: Met Intervention: Identify and Manage Fall Risk Intervention: Prevent Skin Injury Intervention: Prevent and Manage VTE (Venous Thromboembolism) Risk Intervention: Prevent Infection Goal: Optimal Comfort and Wellbeing Outcome: Met Intervention: Monitor Pain and Promote Comfort Intervention: Provide Person-Centered Care Goal: Readiness for Transition of Care Outcome: Met Problem: Fall Injury Risk Goal: Absence of Fall and Fall-Related Injury Outcome: Met Intervention: Identify and Manage Contributors Intervention: Promote Injury-Free Environment Problem: Skin Injury Risk Increased Goal: Skin Health and Integrity Outcome: Met Intervention: Optimize Skin Protection Goal Outcome Evaluation: * Angela Avila PT - 02/07/2025 10:32 AM EDT Goal Outcome Evaluation: Plan of Care Reviewed With: patient, child Progress: improving Outcome Evaluation: STEADY PROGRESS WITH MOBILITY. INCREASED PAIN WITH GAIT IN ROBERT TO 7/10 AT [facility] BUT IMPROVED TO 4/10 WITH REST. REQUIRED CGA FOR GAIT X 220 WITH R WALKER AND MULTIPLE CUESFOR SEQUENCING, PROPER WALKER PLACEMENT AND UPRIGHT POSTURE. RECOMMEND SNF AT D/C FOR BEST OUTCOME. Anticipated Discharge Disposition (PT): shelter facility * Loren Floyd RN - 02/06/2025 4:54 PM EDT Problem: Adult Inpatient Plan of Care Goal: Plan of Care Review Outcome: Progressing Goal: Patient-Specific Goal (Individualized) Outcome: Progressing Goal: Absence of Hospital-Acquired Illness or Injury Outcome: Progressing Intervention: Identify and Manage Fall Risk Recent Flowsheet Documentation Taken 02/06/2025 1609 by Loren Floyd RN Safety Promotion/Fall Prevention: activity supervised assistive device/personal items within reach clutter free environment maintained elopement precautions fall prevention program maintained gait belt lighting adjusted mobility aid in reach muscle strengthening facilitated nonskid shoes/slippers when out of bed room organization consistent safety round/check completed toileting scheduled Taken 02/06/2025 1416 by Loren Floyd RN Safety Promotion/Fall Prevention: activity supervised assistive device/personal items within reach clutter free environment maintained elopement precautions fall prevention program maintained gait belt lighting adjusted mobility aid in reach muscle strengthening facilitated nonskid shoes/slippers when out of bed room organization consistent safety round/check completed toileting scheduled Taken 02/06/2025 1210 by Loren Floyd RN Safety Promotion/Fall Prevention: activity supervised assistive device/personal items within reach clutter free environment maintained elopement precautions fall prevention program maintained gait belt lighting adjusted mobility aid in reach muscle strengthening facilitated nonskid shoes/slippers when out of bed room organization consistent safety round/check completed toileting scheduled Taken 02/06/2025 1010 by Loren Floyd RN Safety Promotion/Fall Prevention: activity supervised assistive device/personal items within reach clutter free environment maintained elopement precautions fall prevention program maintained gait belt lighting adjusted mobility aid in reach muscle strengthening facilitated nonskid shoes/slippers when out of bed room organization consistent safety round/check completed toileting scheduled Taken 02/06/2025 0828 by Loren Floyd RN Safety Promotion/Fall Prevention: activity supervised assistive device/personal items within reach clutter free environment maintained elopement precautions fall prevention program maintained gait belt lighting adjusted mobility aid in reach muscle strengthening facilitated nonskid shoes/slippers when out of bed room organization consistent safety round/check completed toileting scheduled Intervention: Prevent Skin Injury Recent Flowsheet Documentation Taken 02/06/2025 1609 by Loren Floyd RN Body Position: position maintained Skin Protection: incontinence pads utilized silicone foam dressing in place transparent dressing maintained Taken 02/06/2025 1416 by Loren Floyd RN Body Position: position maintained Skin Protection: incontinence pads utilized silicone foam dressing in place transparent dressing maintained Taken 02/06/2025 1210 by Loren Floyd RN Body Position: position maintained Skin Protection: incontinence pads utilized silicone foam dressing in place transparent dressing maintained Taken 02/06/2025 1010 by Loren Floyd RN Body Position: position maintained Skin Protection: incontinence pads utilized silicone foam dressing in place transparent dressing maintained Taken 02/06/2025 0828 by Loren Floyd RN Body Position: position maintained Skin Protection: incontinence pads utilized silicone foam dressing in place transparent dressing maintained Intervention: Prevent and Manage VTE (Venous Thromboembolism) Risk Recent Flowsheet Documentation Taken 02/06/2025 1609 by Loren Floyd RN VTE Prevention/Management: bilateral SCDs (sequential compression devices) on Taken 02/06/2025 1416 by Loren Floyd RN VTE Prevention/Management: bilateral SCDs (sequential compression devices) on Taken 02/06/2025 1210 by Loren Floyd RN VTE Prevention/Management: bilateral SCDs (sequential compression devices) on Taken 02/06/2025 1010 by Loren Floyd RN VTE Prevention/Management: bilateral SCDs (sequential compression devices) on Taken 02/06/2025 0828 by Loren Floyd RN VTE Prevention/Management: bilateral SCDs (sequential compression devices) on Intervention: Prevent Infection Recent Flowsheet Documentation Taken 02/06/2025 1609 by Loren Floyd RN Infection Prevention: environmental surveillance performed equipment surfaces disinfected hand hygiene promoted personal protective equipment utilized rest/sleep promoted single patient room provided Taken 02/06/2025 1416 by Loren Floyd RN Infection Prevention: environmental surveillance performed equipment surfaces disinfected hand hygiene promoted personal protective equipment utilized rest/sleep promoted single patient room provided Taken 02/06/2025 1210 by Loren Floyd RN Infection Prevention: environmental surveillance performed equipment surfaces disinfected hand hygiene promoted personal protective equipment utilized rest/sleep promoted single patient room provided Taken 02/06/2025 1010 by Loren Floyd RN Infection Prevention: environmental surveillance performed equipment surfaces disinfected hand hygiene promoted personal protective equipment utilized rest/sleep promoted single patient room provided Taken 02/06/2025 0828 by Loren Floyd RN Infection Prevention: environmental surveillance performed equipment surfaces disinfected hand hygiene promoted personal protective equipment utilized rest/sleep promoted single patient room provided Goal: Optimal Comfort and Wellbeing Outcome: Progressing Intervention: Provide Person-Centered Care Recent Flowsheet Documentation Taken 02/06/2025 0828 by Loren Floyd RN Trust Relationship/Rapport: care explained choices provided emotional support provided empathic listening provided questions answered questions encouraged reassurance provided thoughts/feelings acknowledged Goal: Readiness for Transition of Care Outcome: Progressing Problem: Fall Injury Risk Goal: Absence of Fall and Fall-Related Injury Outcome: Progressing Intervention: Identify and Manage Contributors Recent Flowsheet Documentation Taken 02/06/2025 1609 by Loren Floyd RN Medication Review/Management: medications reviewed Taken 02/06/2025 1416 by Loren Floyd RN Medication Review/Management: medications reviewed Taken 02/06/2025 1210 by Loren Floyd RN Medication Review/Management: medications reviewed Taken 02/06/2025 1010 by Loren Floyd RN Medication Review/Management: medications reviewed Taken 02/06/2025 0828 by Loren Floyd RN Medication Review/Management: medications reviewed Intervention: Promote Injury-Free Environment Recent Flowsheet Documentation Taken 02/06/2025 1609 by Loren Floyd RN Safety Promotion/Fall Prevention: activity supervised assistive device/personal items within reach clutter free environment maintained elopement precautions fall prevention program maintained gait belt lighting adjusted mobility aid in reach muscle strengthening facilitated nonskid shoes/slippers when out of bed room organization consistent safety round/check completed toileting scheduled Taken 02/06/2025 1416 by Loren Floyd RN Safety Promotion/Fall Prevention: activity supervised assistive device/personal items within reach clutter free environment maintained elopement precautions fall prevention program maintained gait belt lighting adjusted mobility aid in reach muscle strengthening facilitated nonskid shoes/slippers when out of bed room organization consistent safety round/check completed toileting scheduled Taken 02/06/2025 1210 by Loren Floyd RN Safety Promotion/Fall Prevention: activity supervised assistive device/personal items within reach clutter free environment maintained elopement precautions fall prevention program maintained gait belt lighting adjusted mobility aid in reach muscle strengthening facilitated nonskid shoes/slippers when out of bed room organization consistent safety round/check completed toileting scheduled Taken 02/06/2025 1010 by Loren Floyd RN Safety Promotion/Fall Prevention: activity supervised assistive device/personal items within reach clutter free environment maintained elopement precautions fall prevention program maintained gait belt lighting adjusted mobility aid in reach muscle strengthening facilitated nonskid shoes/slippers when out of bed room organization consistent safety round/check completed toileting scheduled Taken 02/06/2025 0828 by Loren Floyd RN Safety Promotion/Fall Prevention: activity supervised assistive device/personal items within reach clutter free environment maintained elopement precautions fall prevention program maintained gait belt lighting adjusted mobility aid in reach muscle strengthening facilitated nonskid shoes/slippers when out of bed room organization consistent safety round/check completed toileting scheduled Problem: Skin Injury Risk Increased Goal: Skin Health and Integrity Outcome: Progressing Intervention: Optimize Skin Protection Recent Flowsheet Documentation Taken 02/06/2025 1609 by Loren Floyd RN Pressure Reduction Techniques: frequent weight shift encouraged Head of Bed (HOB) Positioning: HOB elevated Pressure Reduction Devices: pressure-redistributing mattress utilized positioning supports utilized Skin Protection: incontinence pads utilized silicone foam dressing in place transparent dressing maintained Taken 02/06/2025 1416 by Loren Floyd RN Pressure Reduction Techniques: frequent weight shift encouraged Head of Bed (HOB) Positioning: HOB elevated Pressure Reduction Devices: pressure-redistributing mattress utilized positioning supports utilized Skin Protection: incontinence pads utilized silicone foam dressing in place transparent dressing maintained Taken 02/06/2025 1210 by Loren Flody RN Pressure Reduction Techniques: frequent weight shift encouraged Head of Bed (HOB) Positioning: HOB elevated Pressure Reduction Devices: pressure-redistributing mattress utilized positioning supports utilized Skin Protection: incontinence pads utilized silicone foam dressing in place transparent dressing maintained Taken 02/06/2025 1010 by Loren Floyd RN Pressure Reduction Techniques: frequent weight shift encouraged Head of Bed (HOB) Positioning: HOB elevated Pressure Reduction Devices: pressure-redistributing mattress utilized positioning supports utilized Skin Protection: incontinence pads utilized silicone foam dressing in place transparent dressing maintained Taken 02/06/2025 0828 by Loren Floyd RN Pressure Reduction Techniques: frequent weight shift encouraged Head of Bed (HOB) Positioning: HOB elevated Pressure Reduction Devices: pressure-redistributing mattress utilized positioning supports utilized Skin Protection: incontinence pads utilized silicone foam dressing in place transparent dressing maintained Taken 02/06/2025 0734 by Loren Floyd RN Activity Management: ambulated to bathroom Goal Outcome Evaluation: * Sheba Vasquez, OT - 02/06/2025 2:42 PM EDT Goal Outcome Evaluation: Plan of Care Reviewed With: patient Progress: improving Outcome Evaluation: Pt demonstrated improvements w/ transfers and mobility this date. Pt educated on AE for increased I and safety w/ ADLs. Pt very motivated to return to [facility]. Anticipated Discharge Disposition (OT): shelter facility * Amaris Reyes, PT - 02/06/2025 11:14 AM EDT Goal Outcome Evaluation: Plan of Care Reviewed With: patient, child Progress: improving Outcome Evaluation: Pt increases ambulation distance but continues to be limited by significant pain that extends down into LLE limiting ability to ambulate and mobilize efficiently. Pt continues to demonstrate progress but would further benefit from IP PT to continue addressing deficits. RecommendSNF following d/c for best functional outcome. Anticipated Discharge Disposition (PT): shelter facility * Essence Hernandez RN - 02/06/2025 7:39 AM EDT Problem: Adult Inpatient Plan of Care Goal: Absence of Hospital-Acquired Illness or Injury Intervention: Identify and Manage Fall Risk Recent Flowsheet Documentation Taken 02/06/2025 0600 by Essence Hernandez RN Safety Promotion/Fall Prevention: activity supervised assistive device/personal items within reach clutter free environment maintained elopement precautions fall prevention program maintained gait belt lighting adjusted mobility aid in reach nonskid shoes/slippers when out of bed room organization consistent safety round/check completed toileting scheduled Taken 02/06/2025 0400 by Essence Hernandez RN Safety Promotion/Fall Prevention: activity supervised assistive device/personal items within reach clutter free environment maintained elopement precautions fall prevention program maintained gait belt lighting adjusted mobility aid in reach nonskid shoes/slippers when out of bed room organization consistent safety round/check completed toileting scheduled Taken 02/06/2025 0200 by Essence Hernandez RN Safety Promotion/Fall Prevention: activity supervised assistive device/personal items within reach clutter free environment maintained elopement precautions fall prevention program maintained gait belt lighting adjusted mobility aid in reach nonskid shoes/slippers when out of bed room organization consistent safety round/check completed toileting scheduled Taken 02/06/2025 0000 by Essence Hernandez RN Safety Promotion/Fall Prevention: activity supervised assistive device/personal items within reach clutter free environment maintained elopement precautions gait belt fall prevention program maintained lighting adjusted mobility aid in reach nonskid shoes/slippers when out of bed room organization consistent safety round/check completed toileting scheduled Taken 02/05/2025 2200 by Essence Hernandez RN Safety Promotion/Fall Prevention: activity supervised assistive device/personal items within reach clutter free environment maintained elopement precautions fall prevention program maintained gait belt lighting adjusted mobility aid in reach nonskid shoes/slippers when out of bed room organization consistent safety round/check completed toileting scheduled Taken 02/05/20252023 by Essence Hernandez RN Safety Promotion/Fall Prevention: activity supervised assistive device/personal items within reach clutter free environment maintained elopement precautions fall prevention program maintained gait belt lighting adjusted mobility aid in reach nonskid shoes/slippers when out of bed room organization consistent safety round/check completed toileting scheduled Intervention: Prevent Skin Injury Recent Flowsheet Documentation Taken 02/06/2025 0600 by Essence Hernandez RN Body Position: legs elevated Skin Protection: incontinence pads utilized transparent dressing maintained Taken 02/06/2025 0400 by Essence Hernandez RN Body Position: legs elevated Skin Protection: incontinence pads utilized transparent dressing maintained Taken 02/06/2025 0200 by Essence Hernandez RN Body Position: legs elevated Skin Protection: incontinence pads utilized transparent dressing maintained Taken 02/06/2025 0000 by Essence Hernandez RN Body Position: legs elevated Skin Protection: incontinence pads utilized transparent dressing maintained Taken 02/05/2025 2200 by Essence Hernandez RN Body Position: legs elevated Skin Protection: incontinence pads utilized transparent dressing maintained Taken 02/05/20252023 by Essence Hernandez RN Body Position: sitting up in bed Skin Protection: incontinence pads utilized transparent dressing maintained Intervention: Prevent and Manage VTE (Venous Thromboembolism) Risk Recent Flowsheet Documentation Taken 02/06/2025 0200 by Essence Hernandez RN VTE Prevention/Management: SCDs (sequential compression devices) off Taken 02/06/2025 0000 by Essence Hernandez RN VTE Prevention/Management: SCDs (sequential compression devices) off Taken 02/05/2025 2200 by Essence Hernandez RN VTE Prevention/Management: SCDs (sequential compression devices) off Taken 02/05/20252023 by Essence Hernandez RN VTE Prevention/Management: bilateral SCDs (sequential compression devices) off Intervention: Prevent Infection Recent Flowsheet Documentation Taken 02/06/2025 0000 by Essence Hernandez RN Infection Prevention: hand hygiene promoted environmental surveillance performed rest/sleep promoted single patient room provided Taken 02/05/20252023 by Essence Hernandez RN Infection Prevention: environmental surveillance performed hand hygiene promoted rest/sleep promoted single patient room provided Goal: Optimal Comfort and Wellbeing Intervention: Monitor Pain and Promote Comfort Recent Flowsheet Documentation Taken 02/06/2025 0132 by Essence Hernandez RN Pain Management Interventions: pain medication given Taken 02/05/20252023 by Essence Hernandez RN Pain Management Interventions: pain medication given Intervention: Provide Person-Centered Care Recent Flowsheet Documentation Taken 02/05/20252023 by Essence Hernandez RN Trust Relationship/Rapport: care explained choices provided Problem: Fall Injury Risk Goal: Absence of Fall and Fall-Related Injury Intervention: Identify and Manage Contributors Recent Flowsheet Documentation Taken 02/06/2025 0600 by Essence Hernandez RN Medication Review/Management: medications reviewed Taken 02/06/2025 0400 by Essence Hernandez RN Medication Review/Management: medications reviewed Taken 02/06/2025 0200 by Essence Hernandez RN Medication Review/Management: medications reviewed Taken 02/05/2025 2200 by Essence Hernandez RN Medication Review/Management: medications reviewed Intervention: Promote Injury-Free Environment Recent Flowsheet Documentation Taken 02/06/2025 0600 by Essence Hernandez RN Safety Promotion/Fall Prevention: activity supervised assistive device/personal items within reach clutter free environment maintained elopement precautions fall prevention program maintained gait belt lighting adjusted mobility aid in reach nonskid shoes/slippers when out of bed room organization consistent safety round/check completed toileting scheduled Taken 02/06/2025 0400 by Essence Hernandez RN Safety Promotion/Fall Prevention: activity supervised assistive device/personal items within reach clutter free environment maintained elopement precautions fall prevention program maintained gait belt lighting adjusted mobility aid in reach nonskid shoes/slippers when out of bed room organization consistent safety round/check completed toileting scheduled Taken 02/06/2025 0200 by Essence Hernandez RN Safety Promotion/Fall Prevention: activity supervised assistive device/personal items within reach clutter free environment maintained elopement precautions fall prevention program maintained gait belt lighting adjusted mobility aid in reach nonskid shoes/slippers when out of bed room organization consistent safety round/check completed toileting scheduled Taken 02/06/2025 0000 by Essence Hernandez RN Safety Promotion/Fall Prevention: activity supervised assistive device/personal items within reach clutter free environment maintained elopement precautions gait belt fall prevention program maintained lighting adjusted mobility aid in reach nonskid shoes/slippers when out of bed room organization consistent safety round/check completed toileting scheduled Taken 02/05/2025 2200 by Essence Hernandez RN Safety Promotion/Fall Prevention: activity supervised assistive device/personal items within reach clutter free environment maintained elopement precautions fall prevention program maintained gait belt lighting adjusted mobility aid in reach nonskid shoes/slippers when out of bed room organization consistent safety round/check completed toileting scheduled Taken 02/05/20252023 by Essence Hernandez RN Safety Promotion/Fall Prevention: activity supervised assistive device/personal items within reach clutter free environment maintained elopement precautions fall prevention program maintained gait belt lighting adjusted mobility aid in reach nonskid shoes/slippers when out of bed room organization consistent safety round/check completed toileting scheduled Problem: Skin Injury Risk Increased Goal: Skin Health and Integrity Intervention: Optimize Skin Protection Recent Flowsheet Documentation Taken 02/06/2025 0600 by Essence Hernandez RN Activity Management: up in chair Pressure Reduction Techniques: frequent weight shift encouraged weight shift assistance provided Pressure Reduction Devices: positioning supports utilized pressure-redistributing mattress utilized Skin Protection: incontinence pads utilized transparent dressing maintained Taken 02/06/2025 0400 by Essence Hernandez RN Activity Management: up in chair Pressure Reduction Techniques: frequent weight shift encouraged weight shift assistance provided Pressure Reduction Devices: positioning supports utilized pressure-redistributing mattress utilized Skin Protection: incontinence pads utilized transparent dressing maintained Taken 02/06/2025 0200 by Essence Hernandez RN Activity Management: up in chair Pressure Reduction Techniques: frequent weight shift encouraged weight shift assistance provided Pressure Reduction Devices: positioning supports utilized pressure-redistributing mattress utilized Skin Protection: incontinence pads utilized transparent dressing maintained Taken 02/06/2025 0133 by Essence Hernandez RN Activity Management: ambulated to bathroom up in chair Taken 02/06/2025 0000 by Essence Hernandez RN Activity Management: up in chair Pressure Reduction Techniques: frequent weight shift encouraged weight shift assistance provided Pressure Reduction Devices: positioning supports utilized pressure-redistributing mattress utilized Skin Protection: incontinence pads utilized transparent dressing maintained Taken 02/05/2025 2200 by Essence Hernandez RN Activity Management: up in chair Pressure Reduction Techniques: frequent weight shift encouraged weight shift assistance provided Pressure Reduction Devices: positioning supports utilized pressure-redistributing mattress utilized Skin Protection: incontinence pads utilized transparent dressing maintained Taken 02/05/20252023 by Essence Hernandez RN Activity Management: activity encouraged Pressure Reduction Techniques: frequent weight shift encouraged weight shift assistance provided Head of Bed (HOB) Positioning: HOB elevated Pressure Reduction Devices: positioning supports utilized pressure-redistributing mattress utilized Skin Protection: incontinence pads utilized transparent dressing maintained Goal Outcome Evaluation: * Loren Floyd RN - 02/05/2025 3:31 PM EDT Problem: Adult Inpatient Plan of Care Goal: Plan of Care Review Outcome: Progressing Goal: Patient-Specific Goal (Individualized) Outcome: Progressing Goal: Absence of Hospital-Acquired Illness or Injury Outcome: Progressing Intervention: Identify and Manage Fall Risk Recent Flowsheet Documentation Taken 02/05/2025 1430 by Loren Floyd RN Safety Promotion/Fall Prevention: activity supervised assistive device/personal items within reach clutter free environment maintained elopement precautions fall prevention program maintained gait belt lighting adjusted mobility aid in reach muscle strengthening facilitated nonskid shoes/slippers when out of bed room organization consistent safety round/check completed toileting scheduled Taken 02/05/2025 1230 by Loren Floyd RN Safety Promotion/Fall Prevention: activity supervised assistive device/personal items within reach clutter free environment maintained elopement precautions fall prevention program maintained gait belt lighting adjusted mobility aid in reach muscle strengthening facilitated nonskid shoes/slippers when out of bed room organization consistent safety round/check completed toileting scheduled Taken 02/05/2025 1014 by Loren Floyd RN Safety Promotion/Fall Prevention: activity supervised assistive device/personal items within reach clutter free environment maintained elopement precautions fall prevention program maintained gait belt lighting adjusted mobility aid in reach muscle strengthening facilitated nonskid shoes/slippers when out of bed room organization consistent safety round/check completed toileting scheduled Taken 02/05/2025 0803 by Loren Floyd RN Safety Promotion/Fall Prevention: activity supervised assistive device/personal items within reach clutter free environment maintained elopement precautions fall prevention program maintained gait belt lighting adjusted mobility aid in reach muscle strengthening facilitated nonskid shoes/slippers when out of bed room organization consistent safety round/check completed toileting scheduled Intervention: Prevent Skin Injury Recent Flowsheet Documentation Taken 02/05/2025 1430 by Loren Floyd RN Body Position: position maintained Skin Protection: incontinence pads utilized silicone foam dressing in place transparent dressing maintained Taken 02/05/2025 1230 by Loren Floyd RN Body Position: position maintained Skin Protection: incontinence pads utilized silicone foam dressing in place transparent dressing maintained Taken 02/05/2025 1014 by Loren Floyd RN Body Position: position maintained Skin Protection: incontinence pads utilized silicone foam dressing in place transparent dressing maintained Taken 02/05/2025 0803 by Loren Floyd RN Body Position: position maintained Skin Protection: incontinence pads utilized silicone foam dressing in place transparent dressing maintained Intervention: Prevent and Manage VTE (Venous Thromboembolism) Risk Recent Flowsheet Documentation Taken 02/05/2025 1430 by Loren Floyd RN VTE Prevention/Management: bilateral SCDs (sequential compression devices) on Taken 02/05/2025 1230 by Loren Floyd RN VTE Prevention/Management: bilateral SCDs (sequential compression devices) on Taken 02/05/2025 1014 by Loren Floyd RN VTE Prevention/Management: bilateral SCDs (sequential compression devices) on Taken 02/05/2025 0803 by Loren Floyd RN VTE Prevention/Management: bilateral SCDs (sequential compression devices) on Intervention: Prevent Infection Recent Flowsheet Documentation Taken 02/05/2025 1430 by Loren Floyd RN Infection Prevention: environmental surveillance performed equipment surfaces disinfected hand hygiene promoted personal protective equipment utilized rest/sleep promoted single patient room provided Taken 02/05/2025 1230 by Loren Floyd RN Infection Prevention: environmental surveillance performed equipment surfaces disinfected hand hygiene promoted personal protective equipment utilized rest/sleep promoted single patient room provided Taken 02/05/2025 1014 by Loren Floyd RN Infection Prevention: environmental surveillance performed equipment surfaces disinfected hand hygiene promoted personal protective equipment utilized rest/sleep promoted single patient room provided Taken 02/05/2025 0803 by Loren Floyd RN Infection Prevention: environmental surveillance performed equipment surfaces disinfected hand hygiene promoted personal protective equipment utilized rest/sleep promoted single patient room provided Goal: Optimal Comfort and Wellbeing Outcome: Progressing Intervention: Provide Person-Centered Care Recent Flowsheet Documentation Taken 02/05/2025 0803 by Loren Floyd RN Trust Relationship/Rapport: care explained choices provided emotional support provided empathic listening provided questions answered questions encouraged reassurance provided thoughts/feelings acknowledged Goal: Readiness for Transition of Care Outcome: Progressing Problem: Fall Injury Risk Goal: Absence of Fall and Fall-Related Injury Outcome: Progressing Intervention: Identify and Manage Contributors Recent Flowsheet Documentation Taken 02/05/2025 1430 by Loren Floyd RN Medication Review/Management: medications reviewed Taken 02/05/2025 1230 by Loren Floyd RN Medication Review/Management: medications reviewed Taken 02/05/2025 1014 by Loren Floyd RN Medication Review/Management: medications reviewed Taken 02/05/2025 0803 by Loren Floyd RN Medication Review/Management: medications reviewed Intervention: Promote Injury-Free Environment Recent Flowsheet Documentation Taken 02/05/2025 1430 by Loren Floyd RN Safety Promotion/Fall Prevention: activity supervised assistive device/personal items within reach clutter free environment maintained elopement precautions fall prevention program maintained gait belt lighting adjusted mobility aid in reach muscle strengthening facilitated nonskid shoes/slippers when out of bed room organization consistent safety round/check completed toileting scheduled Taken 02/05/2025 1230 by Loren Floyd RN Safety Promotion/Fall Prevention: activity supervised assistive device/personal items within reach clutter free environment maintained elopement precautions fall prevention program maintained gait belt lighting adjusted mobility aid in reach muscle strengthening facilitated nonskid shoes/slippers when out of bed room organization consistent safety round/check completed toileting scheduled Taken 02/05/2025 1014 by Loren Floyd RN Safety Promotion/Fall Prevention: activity supervised assistive device/personal items within reach clutter free environment maintained elopement precautions fall prevention program maintained gait belt lighting adjusted mobility aid in reach muscle strengthening facilitated nonskid shoes/slippers when out of bed room organization consistent safety round/check completed toileting scheduled Taken 02/05/2025 0803 by Loren Floyd RN Safety Promotion/Fall Prevention: activity supervised assistive device/personal items within reach clutter free environment maintained elopement precautions fall prevention program maintained gait belt lighting adjusted mobility aid in reach muscle strengthening facilitated nonskid shoes/slippers when out of bed room organization consistent safety round/check completed toileting scheduled Problem: Skin Injury Risk Increased Goal: Skin Health and Integrity Outcome: Progressing Intervention: Optimize Skin Protection Recent Flowsheet Documentation Taken 02/05/2025 1430 by Loren Floyd RN Pressure Reduction Techniques: frequent weight shift encouraged Head of Bed (HOB) Positioning: [facility] elevated Pressure Reduction Devices: pressure-redistributing mattress utilized positioning supports utilized Skin Protection: incontinence pads utilized silicone foam dressing in place transparent dressing maintained Taken 02/05/2025 1230 by Loren Floyd RN Pressure Reduction Techniques: frequent weight shift encouraged Head of Bed (HOB) Positioning: [facility] elevated Pressure Reduction Devices: pressure-redistributing mattress utilized positioning supports utilized Skin Protection: incontinence pads utilized silicone foam dressing in place transparent dressing maintained Taken 02/05/2025 1014 by Loren Floyd RN Pressure Reduction Techniques: frequent weight shift encouraged Head of Bed (HOB) Positioning: [facility] elevated Pressure Reduction Devices: pressure-redistributing mattress utilized positioning supports utilized Skin Protection: incontinence pads utilized silicone foam dressing in place transparent dressing maintained Taken 02/05/2025 0803 by Loren Floyd RN Pressure Reduction Techniques: frequent weight shift encouraged Head of Bed (HOB) Positioning: [facility] elevated Pressure Reduction Devices: pressure-redistributing mattress utilized positioning supports utilized Skin Protection: incontinence pads utilized silicone foam dressing in place transparent dressing maintained Goal Outcome Evaluation: * Amaris Reyes, PT - 02/05/2025 9:07 AM EDT Goal Outcome Evaluation: Plan of Care Reviewed With: patient, child Progress: improving Outcome Evaluation: Pt reporting decreased pain this date following functional mobility this date but continues to require min-A for transfers and gait. Pt continues to benefit from IP PT services toaddress functional deficits and promote return to baseline. Given that pt lives alone and her consistent high pain levels she is unsafe to return straight home at this time. Recommend SNF for best functional outcome. Anticipated Discharge Disposition (PT): shelter facility * Corie Mast RN - 02/05/2025 3:53 AM EDT Goal Outcome Evaluation: PT's pain was better controlled tonight. She slept in recliner until just before midnight (she sleeps in recliner at home) and then was helped back to bed with assist x 1. She was positioned for comfort and slept well. NAD noted at this time. * Ginger Bello RN - 02/04/2025 6:31 PM EDT Goal Outcome Evaluation: Patient endorses better pain control this shift with PRN oxy 10mg, ambulating well with walker, potassium re-check in AM. No further needs at this time * Amaris Reyes PT - 02/04/2025 1:01 PM EDT Goal Outcome Evaluation: Plan of Care Reviewed With: patient, family Progress: no change Outcome Evaluation: Pt ambulates with RWx and min-A for stability but continues to be limited by pain and limited activity tolerance. Pt would benefit from continued IP PT services to address functional deficits and facilitate return to baseline. Recommend SNF following d/c. Anticipated Discharge Disposition (PT): shelter facility * Winter Burton OT - 02/04/2025 8:35 AM EDT Goal Outcome Evaluation: Plan of Care Reviewed With: patient Progress: no change Outcome Evaluation: OT evaluation completed. Pt educated on spinal precautions. Pt provided and educated on AE, would benefit from additional ecduation and practice. Pt required Min A for bed mobility. Pt completed fxnl mobility and toilet transfer with RWx and CGA. Pt required Min A for LBD this date. Pt presents below baseline level of functioning secondary to weakness, decreased activity tolerance, pain, and decreased independence with ADLs and fxnl mobility and would benefit from skilled IPOT services to improve fxnl status. OT recommends SNF at discharge. Anticipated Discharge Disposition (OT): shelter facility * Corie Mast RN - 02/04/2025 3:41 AM EDT Goal Outcome Evaluation: Pt has had difficult time controlling pain tonight. She has tried repositioning, walking, taking prescribed oral and IV medications and has slept very little tonight. She has been cooperative with care and noted small amount of drainage from drain. NAD noted at this time. * Marilia Mayberry RN - 02/03/2025 7:45 PM EDT Goal Outcome Evaluation: * Amaris Reyes, FERNANDO - 02/03/2025 3:35 PM EDT Goal Outcome Evaluation: Plan of Care Reviewed With: patient Outcome Evaluation: PT evaluation completed. Pt ambulates 150' with RWx and min- A with chair followfor safety but is ultimately limited by pain and fatigue. Post-op precautions reviewed with pt and pt requires cueing t/o session to maintain. Pt reports being home alone during days and a recent functional decline due to her back pain. Recommend SNF following d/c pending improvements in pain and overall functional mobility. 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 Anesthesia: General plus 30 cc 1/4% Marcaine with Epi, Local EBL: 400 cc with 100 cc cell safer given back Drain: Hemovac to bulb suction Indications: Patient presents as a h/o L4-5 fusion 3 years 2.5 years ago. She did well until she fell approx 7 months ago with increasing LBP and leg pain since. Pain not responsive to conservative care. Cfound to have pseudarthrosis L4-5 with recurrent stenosis. Risks, benefits and both operative and non operative options were discussed with the patient and daughter preoperatively. Specific risks including, but not limited to the risk of bleeding, infection,nerve injury, blood vessel injury, weakness, paralysis, possible need for additional surgery and possible worsening of pain were discussed. After informed consent and antibiotic prophylaxis, patient brought to the operating room. After general endotracheal anesthesia patient was positioned prone on the Vipin table. The bony prominenceswere well padded. Back was prepped and draped in usual sterile fashion. Description: Incision made through the prior incision approximately 12-15 cm in length over the lower lumbar spine in the midline. Sharp dissection through the subcutaneous tissues down to the spinous processes. There was a lot of edema fluid in the subcutaneous tissues. The bony landmarks were identified above and below the prior decompression. The remaining spinous processes were followed down to the hardware. Hardware was exposed. Cap screws removed. Both L4 screws were not tight but they also were not grossly loose. Both L5 screws were significantly looser but did need to be turned out and could not simply be pulled out. With the 4 pedicle screws out, I probed all 4 pedicles. The pedicles were completely intact on all 4 gayle, medial, lateral, superior and inferior. With the spring tip probe, I was able to follow down the serrations of the threads of screws to the vertebral body. There was no violation of any pedicle. There was no violation of the vertebral body on either side at both L4 and L5. Decompression was performed. There was a lot of scar tissue. I followed the remnant of the L4 lamina down removing scar tissue from the top of it and then methodically removing the lamina with #2 and#3 Kerrison rongeurs. All of the removed bone was saved for later bone grafting. Stenosis was high-grade with adhesions at the superior extent of the L4 lamina. I was able to work from the right intothe left and completely decompress the dura from the superior extent of L5 to the inferior extent of L3. Ball tip probe could easily pass along cephalad indicating no residual stenosis. Caudal, therewas still scar tissue posteriorly but I could easily pass the probe through the lateral gutters deep to the nerve roots. Gelfoam was temporarily placed over the dura. There had been no dural tear andno CSF leak. Attention turned to revising the posterior fusion. The remaining transverse processes were exposed L4 and L5 bilaterally. On both sides, the bone graft from the previous surgery had healed to L4 transverse processes but had not extended down with bony continuity to the L5 transverse processes. There was obvious motion and an obvious pseudoarthrosis at the L4-L5 level. After decorticating the remaining bone graft that had healed to the transverse processes and decorticating the transverse process of L4 and L5, I used a blunt nerve hook to probe into the previous pedicle holes. I used this to punch into the vertebra through the previous tract of the pedicle screws to assure that cement would i nterdigitate with the L4 and L5 vertebral body. Decision was made to place identical length hardware 1 mm larger in diameter, therefore, 7.0 x 45 were placed on both sides of L5; 7.0 x 50 mm screws were placed on each side for L4. Good purchase was achieved both on the right and the left in the L4 vertebra. Fair to poor purchase was achieved with the 7.0 screws in the L5 vertebra. This was anticipated and that is why I had planned to cement augment the screws. The cement augmentation adaptor was placed on top of each screw. On the right side, I was able to place it for both L4 and L5. On the left side, I could only place it in L5. Because of the trajectory of the screws, I was not able to place both on the left side. Cement was mixed on the back table under C-arm guidance. I placed cement into both vertebrae, watching as it interdigitated with the vertebral bodies of L4 and then L5. This was taken at the endpoint. I then put cement at L5 and watched from the lateral view until there was evidence that the cement was interdigitating at the vertebral body. Then I removed all of the cement guides from the other 3 pedicle screws and placed the one on the left side at L4, and then placed cement in L4 until interdigitation was achieved. The guide for the cement was removed and appropriate length contoured rods were selected and placed. Cap rods placed. AP and lateral imaging with the C-arm was obtained before placement of the rodsto assure that the cement was appropriately placed, and the canal was reexamined to assure there had been no extravasation into the canal. Then the cap screws were placed over top of the contoured rods. Mild compression was achieved and final tightening with the torque counter torque device as per manufacturers recommendations for all 4 screw caps. The wound was thoroughly irrigated. Floseal was placed over the exposed dura followed by Gelfoam. Moralized local bone from the decompression was mixed with purified allograft (VivEBIQUOUS) and placed in the lateral gutters over the previously decorticate transverse processes. Vancomycin powder was placed on the soft tissues in the deep fascia. Drain was brought out through a separate stab incisionand stitched in place. Layered closure was performed. A figure-eight 0 Vicryl interrupted in the deep fascia, interrupted 2-0 in Denis's and subcutaneous tissue, and a running 3-0 subcuticular skin stitch with Mastisol, Steri-Strips, and sterile dressing applied. The patient very carefully log-rolled back onto the bed. There were no intraoperative complications. Post procedure plan is for admission, consult Physical Therapy and Occupational Therapy with rapidmobilization, consult Case Management for home health needs versus rehabilitation placement. Complications: None Plan: Patient to transfer to floor after cleared by anesthesia. Rapid mobilization with PT/OT. Consult Dr. Nichols for medical management. Consult pillowcase sewer for home needs vs Rehab Placement. Vini Peterson MD 02/03/25 documented in this encounter Miscellaneous Notes * Therapy Treatment Note - Austin Angela Tanja, PT - 02/07/2025 10:32 AM EDT Images from the original note were not included. Patient Name: Gladys Mendes : 1945 Today's Date: 02/07/2025 Admit Date: 02/03/2025 Visit Dx: ICD-10-CM ICD-9-CM 1. S/P lumbar spinal fusion (revision decompression L4-5, posterior lateral fusion L4-5) Z98.1 V45.4 Patient Active Problem List Diagnosis Spondylolisthesis at L4-L5 level HTN (hypertension) Hyperlipidemia GERD (gastroesophageal reflux disease) S/P lumbar spinal fusion, decompression Obesity Acute postoperative pain Acute blood loss anemia, asymptomatic Lumbar stenosis with neurogenic claudication S/P lumbar spinal fusion (revision decompression L4-5, posterior lateral fusion L4-5) Past Medical History: Diagnosis Date Colitis Elevated cholesterol GERD (gastroesophageal reflux disease) History of transfusion [facility], no reaction Hyperlipidemia Hypertension Past Surgical History: Procedure Laterality Date BREAST BIOPSY Right multiple COLONOSCOPY HEMORRHOIDECTOMY LUMBAR DISCECTOMY FUSION INSTRUMENTATION N/A 05/16/2022 Procedure: LUMBAR DECOMPRESSION WITH FUSION INSTRUMENTATION WITH PEDICLE SCREWS, CAGE AND ALLOGRAFTL4-5; Surgeon: Vini Peterson MD; Location: [facility]; Service: Orthopedic Spine; Laterality: N/A; LUMBAR DISCECTOMY FUSION INSTRUMENTATION N/A 02/03/2025 Procedure: REVISION DECOMPRESSION WITH REVISED FUSION WITH PEDICLE SCREWS WITH CEMENT AUGMENTATION,AND HARDWARE REVISION L4-5; Surgeon: Viin Peterson MD; Location: [facility]; Service: Orthopedic Spine; Laterality: N/A; MASTOIDECTOMY Left x3 TUBAL ABDOMINAL LIGATION General Information Row Name 02/07/25 1152 Physical Therapy Time and Intention Document Type therapy note (daily note) -CD Mode of Treatment physical therapy -CD Row Name 02/07/25 1152 General Information Patient Profile Reviewed yes -CD Existing Precautions/Restrictions fall;spinal -CD Row Name 02/07/25 1152 Cognition Orientation Status (Cognition) oriented x 4 -CD Row Name 02/07/25 1152 Safety Issues/Impairments Affecting Functional Mobility Safety Issues Affecting Function (Mobility) awareness of need for assistance;insight into deficits/self-awareness;safety precautions follow- through/compliance;safety precaution awareness;positioning of assistive device -CD Impairments Affecting Function (Mobility) balance;endurance/activity tolerance;pain;postural/trunk control;strength -CD Comment, Safety Issues/Impairments (Mobility) PT ABLE TO RECAL SPINAL PRECAUTIONS. NEEDS CUES FOR UPRIGHT POSTURE AND FORWARD GAZE WITH GAIT. -CD User Metcalf (r) = Recorded By, (t) = Taken By, (c) = Cosigned By Initials Name Provider Type Angela Florez PT Physical Therapist Mobility Row Name 02/07/25 1153 Bed Mobility Comment, (Bed Mobility) PT [facility]. REVIEWED LOG ROLLING TECHNIQUE FOR SUPINE<>SIT. -CD Row Name 02/07/25 1153 Transfers Comment, (Transfers) CUES FOR HAND PLACEMENT. STS FROM RECLINER AND COMMODE IN BATHROOM. -CD Row Name 02/07/25 1153 Sit-Stand Transfer Sit-Stand [facility] (Transfers) contact guard;verbal cues -CD Assistive Device (Sit-Stand Transfers) walker, front-wheeled -CD Comment, (Sit-Stand Transfer) CUES FOR UPRIGHT POSTURE. INCREASED PAIN L LE. -CD Row Name 02/07/25 1153 Gait/Stairs (Locomotion) [place] Level (Gait) verbal cues;nonverbal cues (demo/gesture);contact guard -CD Assistive Device (Gait) walker, front-wheeled -CD Distance in Feet (Gait) 220 -CD Deviations/Abnormal Patterns (Gait) gait speed decreased;anthony decreased;stride length decreased -CD Bilateral Gait Deviations forward flexed posture;heel strike decreased -CD Left Sided Gait Deviations leans left;knee buckling, left side -CD Comment, (Gait/Stairs) PT ABLE TO PROGRESS FROM STEP TO PATTERN TO STEP THROUGH PATTERN WITH CUES BUT REVERTS BACK WITH FATIGUES. CUES FOR UPRIGHT POSTURE AND FATIGUE. 1 BRIEF STANDING REST BREAK. -CD User Metcalf (r) = Recorded By, (t) = Taken By, (c) = Cosigned By Initials Name Provider Type Angela Florez PT Physical Therapist Obj/Interventions Row Name 02/07/25 1206 Motor Skills Therapeutic Exercise -- COMPLETED SEATED LAQ, HIP FLEX, AP'S X 10 REPS EACH. ISSUED WRITTEN COPY OFHEP AND SPINAL PRECAUTIONS. -CD Row Name 02/07/25 1206 Balance Static Sitting Balance independent -CD Dynamic Sitting Balance standby assist -CD Position, Sitting Balance unsupported;sitting in chair COMMODE -CD Static Standing Balance contact guard -CD Dynamic Standing Balance contact guard -CD Position/Device Used, Standing Balance supported;walker, front-wheeled -CD Balance Interventions sitting;standing;sit to stand;supported;static;dynamic -CD Comment, Balance NO LOB WITH USE OF R WALKER FOR SUPPORT. -CD Row Name 02/07/25 1206 Sensory Assessment (Somatosensory) Sensory Assessment (Somatosensory) LE sensation intact -CD User Metcalf (r) = Recorded By, (t) = Taken By, (c) = Cosigned By Initials Name Provider Type CD Angela Avila, PT Physical Therapist Goals/Plan No documentation. Clinical Impression Row Name 02/07/25 1212 Pain Pretreatment Pain Rating 0/10 - no pain INTRA PAIN 7/10 DURING GAIT IN ROBERT. -CD Posttreatment Pain Rating 4/10 -CD Pain Location back;extremity -CD Pain Side/Orientation left;lower -CD Pain Management Interventions exercise or physical activity utilized;positioning techniques utilized -CD Response to Pain Interventions activity participation with increased pain -CD Row Name 02/07/25 1212 Plan of Care Review Plan of Care Reviewed With patient;child -CD Progress improving -CD Outcome Evaluation STEADY PROGRESS WITH MOBILITY. INCREASED PAIN WITH GAIT IN ROBERT TO 7/10 AT BACK AND LLE BUT IMPROVED TO 4/10 WITH REST. REQUIRED CGA FOR GAIT X 220 WITH R WALKER AND MULTIPLE CUES FOR SEQUENCING, PROPER WALKER PLACEMENT AND UPRIGHT POSTURE. RECOMMEND SNF AT D/C FOR BEST OUTCOME. -CD Row Name 02/07/25 1212 Therapy Assessment/Plan (PT) Patient/Family Therapy Goals Statement (PT) TO RESOLVE PAIN AND IMPROVE MOBILITY. -CD Rehab Potential (PT) good -CD Criteria for Skilled Interventions Met (PT) yes;meets criteria;skilled treatment is necessary -CD Therapy Frequency (PT) daily -CD Row Name 02/07/25 1212 Vital Signs Post Systolic BP Rehab 101 -CD Post Treatment Diastolic BP 66 -CD Posttreatment Heart Rate (beats/min) 85 -CD Pre SpO2 (%) 96 -CD O2 Delivery Intra Treatment room air -CD O2 Delivery Post Treatment room air -CD Pre Patient Position Sitting -CD Intra Patient Position Standing -CD Post Patient Position Sitting -CD Row Name 02/07/25 1212 Positioning and Restraints Pre-Treatment Position sitting in chair/recliner -CD Post Treatment Position chair -CD In Chair reclined;call light within reach;encouraged to call for assist;exit alarm on;legs elevated;with family/caregiver;notified nsg NSG NOTIFIED TO REPLACE O2 SENSOR. -CD User Metcalf (r) = Recorded By, (t) = Taken By, (c) = Cosigned By Initials Name Provider Type CD Angela Avila, PT Physical Therapist Outcome Measures Row Name 02/07/25 1216 02/07/25 0805 How much help from another person do you currently need... Turning from your back to your side while in flat bed without using bedrails? 3 -CD 3 -MD Moving from lying on back to sitting on the side of a flat bed without bedrails? 3 -CD 3 -MD Moving to and from a bed to a chair (including a wheelchair)? -- 3 -MD Standing up from a chair using your arms (e.g., wheelchair, bedside chair)? 3 - CD 3 -MD Climbing 3-5 steps with a railing? 2 -CD 2 -MD To walk in hospital room? 3 -CD 3 -MD AM-PAC 6 Clicks Score (PT) -- 17 -MD Highest Level of Mobility Goal -- Stand (1 or More Minutes)-5 -MD Row Name 02/07/25 1216 Functional Assessment Outcome Measure Options AM-PAC 6 Clicks Basic Mobility (PT) -CD User Metcalf (r) = Recorded By, (t) = Taken By, (c) = Cosigned By Initials Name Provider Type CD Angela Avila PT Physical Therapist Ivana Ureña, RN Registered Nurse Physical Therapy Education Title: PT OT FINISHED YARN EXAMINER Therapies (Done) Topic: Physical Therapy (Done) Point: Mobility training (Done) Learning Progress Summary Patient Acceptance, E,H, VU,DU by CD at 02/07/2025 1216 Comment: SEE FLOWSHEET Acceptance, E, VU by ND at 02/06/2025 1406 Acceptance, E, VU by ND at 02/05/2025 1024 Acceptance, E, VU by ND at 02/04/2025 1346 Acceptance, E, VU by ND at 02/03/2025 1644 Family Acceptance, E,H, VU,DU by CD at 02/07/2025 1216 Comment: SEE FLOWSHEET Point: Home exercise program (Done) Learning Progress Summary Patient Acceptance, E,H, VU,DU by CD at 02/07/2025 1216 Comment: SEE FLOWSHEET Acceptance, E, VU by ND at 02/05/2025 1024 Acceptance, E, VU by ND at 02/04/2025 1346 Family Acceptance, E,H, VU,DU by CD at 02/07/2025 1216 Comment: SEE FLOWSHEET Point: Body mechanics (Done) Learning Progress Summary Patient Acceptance, E,H, VU,DU by CD at 02/07/2025 1216 Comment: SEE FLOWSHEET Acceptance, E, VU by ND at 02/06/2025 1406 Acceptance, E, VU by ND at 02/05/2025 1024 Acceptance, E, VU by ND at 02/04/2025 1346 Acceptance, E, VU by ND at 02/03/2025 1644 Family Acceptance, E,H, VU,DU by CD at 02/07/2025 1216 Comment: SEE FLOWSHEET Point: Precautions (Done) Learning Progress Summary Patient Acceptance, E,H, VU,DU by CD at 02/07/2025 1216 Comment: SEE FLOWSHEET Acceptance, E, VU by ND at 02/06/2025 1406 Acceptance, E, VU by ND at 02/05/2025 1024 Acceptance, E, VU by ND at 02/04/2025 1346 Acceptance, E, VU by ND at 02/03/2025 1644 Family Acceptance, E,H, VU,DU by CD at 02/07/2025 1216 Comment: SEE FLOWSHEET User Metcalf Initials Effective Dates Name Provider Type Discipline CD 10/07/22 - Angela Avila, PT Physical Therapist PT ND 07/20/23 - Amaris Reyes PT Physical Therapist PT PT Recommendation and Plan Progress: improving Outcome Evaluation: STEADY PROGRESS WITH MOBILITY. INCREASED PAIN WITH GAIT IN ROBERT TO 7/10 AT BACKAND LLE BUT IMPROVED TO 4/10 WITH REST. REQUIRED CGA FOR GAIT X 220 WITH R WALKER AND MULTIPLE CUESFOR SEQUENCING, PROPER WALKER PLACEMENT AND UPRIGHT POSTURE. RECOMMEND SNF AT D/C FOR BEST OUTCOME. Time Calculation: PT Charges Row Name 02/07/25 1217 Time Calculation Start Time 1032 -CD PT Received On 02/07/25 -CD Time Calculation- PT Total Timed Code Minutes- PT 48 minute(s) -CD Timed Charges 26729 - PT Therapeutic Exercise Minutes 10 -CD 40544 - Gait Training Minutes 20 -CD 53303 - PT Therapeutic Activity Minutes 18 -CD Total Minutes Timed Charges Total Minutes 48 -CD Total Minutes 48 -CD User Metcalf (r) = Recorded By, (t) = Taken By, (c) = Cosigned By Initials Name Provider Type CD Angela Avila, PT Physical Therapist Therapy Charges for Today Code Description Service Date Service Provider Modifiers Qty [id number] HC PT THER PROC EA 15 MIN 02/07/2025 Angela Avila, PT GP 1 00706923044 HC GAIT TRAINING EA 15 MIN 02/07/2025 Angela Avila, PT GP 1 [id number] HC PT THERAPEUTIC ACT EA 15 MIN 02/07/2025 Angela Avila, PT GP 1 PT G-Codes Outcome Measure Options: AM-PAC 6 Clicks Basic Mobility (PT) AM-PAC 6 Clicks Score (PT): 17 AM-PAC 6 Clicks Score (OT): 20 PT Discharge Summary Anticipated Discharge Disposition (PT): shelter facility Angela Avila PT 02/07/2025 * Therapy Treatment Note - Sheba Vasquez, OT - 02/06/2025 2:42 PM EDT Images from the original note were not included. Patient Name: Gladys Mendes : 1945 Today's Date: 02/06/2025 Admit Date: 02/03/2025 Visit Dx: No diagnosis found. Patient Active Problem List Diagnosis Spondylolisthesis at L4-L5 level HTN (hypertension) Hyperlipidemia GERD (gastroesophageal reflux disease) S/P lumbar spinal fusion, decompression Obesity Acute postoperative pain Acute blood loss anemia, asymptomatic Lumbar stenosis with neurogenic claudication S/P lumbar spinal fusion (revision decompression L4-5, posterior lateral fusion L4-5) Past Medical History: Diagnosis Date Colitis Elevated cholesterol GERD (gastroesophageal reflux disease) History of transfusion [facility], no reaction Hyperlipidemia Hypertension Past Surgical History: Procedure Laterality Date BREAST BIOPSY Right multiple COLONOSCOPY HEMORRHOIDECTOMY LUMBAR DISCECTOMY FUSION INSTRUMENTATION N/A 05/16/2022 Procedure: LUMBAR DECOMPRESSION WITH FUSION INSTRUMENTATION WITH PEDICLE SCREWS, CAGE AND ALLOGRAFTL4-5; Surgeon: Vini Peterson MD; Location: [facility]; Service: Orthopedic Spine; Laterality: N/A; LUMBAR DISCECTOMY FUSION INSTRUMENTATION N/A 02/03/2025 Procedure: REVISION DECOMPRESSION WITH REVISED FUSION WITH PEDICLE SCREWS WITH CEMENT AUGMENTATION,AND HARDWARE REVISION L4-5; Surgeon: Vini Peterson MD; Location: [facility] OR; Service: Orthopedic Spine; Laterality: N/A; MASTOIDECTOMY Left x3 TUBAL ABDOMINAL LIGATION General Information Row Name 02/06/25 1522 OT Time and Intention Document Type therapy note (daily note) -MR Mode of Treatment occupational therapy -MR Row Name 02/06/25 152 General Information Patient Profile Reviewed yes -MR Existing Precautions/Restrictions fall;spinal -MR Barriers to Rehab previous functional deficit -MR Row Name 02/06/25 152 Cognition Orientation Status (Cognition) oriented x 4 -MR Row Name 02/06/25 152 Safety Issues/Impairments Affecting Functional Mobility Safety Issues Affecting Function (Mobility) awareness of need for assistance;insight into deficits/self-awareness;safety precaution awareness;safety precautions follow-through/compliance;positioning of assistive device -MR Impairments Affecting Function (Mobility) balance;endurance/activity tolerance;pain;postural/trunk control;range of motion (ROM);strength -MR User Metcalf (r) = Recorded By, (t) = Taken By, (c) = Cosigned By Initials Name Provider Type MR Sheba Vasquez, OT Occupational Therapist Mobility/ADL's Row Name 02/06/25 152 Bed Mobility Comment, (Bed Mobility) Pt UIC upon arrival and left UIC at end of session. -MR Row Name 02/06/25 152 Transfers Transfers sit-stand transfer -MR Row Name 02/06/25 152 Sit-Stand Transfer Sit-Stand [facility] (Transfers) contact guard;verbal cues;nonverbal cues (demo/gesture) -MR Assistive Device (Sit-Stand Transfers) walker, front-wheeled -MR Row Name 02/06/25 152 Functional Mobility Functional Mobility- Ind. Level contact guard assist -MR Functional Mobility- Device walker, front-wheeled -MR Functional Mobility-Distance (Feet) -- HH distances -MR Row Name 02/06/25 1522 Activities of Daily Living BADL Assessment/Intervention lower body dressing;bathing;toileting;upper body dressing -MR Row Name 02/06/25 1522 Upper Body Dressing Assessment/Training [place] Level (Upper Body Dressing) don;doff;minimum assist (75% patient effort);pajama/robe -MR Position (Upper Body Dressing) unsupported standing -MR Row Name 02/06/25 152 Lower Body Dressing Assessment/Training [place] Level (Lower Body Dressing) don;doff;shoes/slippers;socks;dependent (less than 25% patient effort) -MR Assistive Devices (Lower Body Dressing) long-handled shoe horn;relief driller;sock-aid -MR Position (Lower Body Dressing) supported sitting -MR Comment, (Lower Body Dressing) OT re-educated pt on use of AE for increased I and safety w/ ADLs while limited by spinal precautions. -MR Row Name 02/06/25 152 Toileting Assessment/Training [place] Level (Toileting) perform perineal hygiene;toileting skills -MR Assistive Devices (Toileting) toilet paper aid -MR Comment, (Toileting) OT issued and educated pt on use of toilet paper aide for increased I and safety w/ toileting task while being limited by spinal precautions. -MR Row Name 02/06/25 152 Bathing Assessment/Intervention [facility] Level (Bathing) bathing skills -MR Comment, (Bathing) OT educated pt on use of long handled sponge for increased I and safety w/ bathing while limtied by spinal precautions. -MR User Metcalf (r) = Recorded By, (t) = Taken By, (c) = Cosigned By Initials Name Provider Type Sheba Vasquez, OT Occupational Therapist Obj/Interventions Row Name 02/06/25 1536 Balance Balance Assessment sitting static balance;sitting dynamic balance;standing static balance;standing dynamic balance -MR Static Sitting Balance standby assist -MR Dynamic Sitting Balance standby assist -MR Position, Sitting Balance unsupported;sitting in chair -MR Static Standing Balance contact guard -MR Dynamic Standing Balance contact guard -MR Position/Device Used, Standing Balance supported;walker, front-wheeled -MR Balance Interventions sitting;standing;sit to stand;supported;static;dynamic -MR User Metcalf (r) = Recorded By, (t) = Taken By, (c) = Cosigned By Initials Name Provider Type Sheba Vasquez, LUISA Occupational Therapist Goals/Plan No documentation. Clinical Impression Row Name 02/06/25 153 Pain Assessment Pretreatment Pain Rating /10 -MR Posttreatment Pain Rating /10 -MR Pain Location back -MR Pain Side/Orientation generalized -MR Row Name 02/06/25 153 Plan of Care Review Plan of Care Reviewed With patient -MR Progress improving -MR Outcome Evaluation Pt demonstrated improvements w/ transfers and mobility this date. Pt educated onAE for increased I and safety w/ ADLs. Pt very motivated to return to [facility]. -MR Row Name 02/06/25 153 Therapy Plan Review/Discharge Plan (OT) Anticipated Discharge Disposition (OT) shelter facility -MR Row Name 02/06/251536 Vital Signs O2 Delivery Pre Treatment room air -MR O2 Delivery Intra Treatment room air -MR O2 Delivery Post Treatment room air -MR Pre Patient Position Sitting -MR Intra Patient Position Standing -MR Post Patient Position Sitting -MR Row Name 02/06/25 153 Positioning and Restraints Pre-Treatment Position sitting in chair/recliner -MR Post Treatment Position chair -MR In Chair notified nsg;reclined;sitting;call light within reach;encouraged to call for assist;exit alarm on;waffle cushion ice -MR User Metcalf (r) = Recorded By, (t) = Taken By, (c) = Cosigned By Initials Name Provider Type Sheba Aguilar, LUISA Occupational Therapist Outcome Measures Row Name 02/06/25 1542 How much help from another is currently needed... Putting on and taking off regular lower body clothing? 3 -MR Bathing (including washing, rinsing, and drying) 3 -MR Toileting (which includes using toilet bed smith or urinal) 3 -MR Putting on and taking off regular upper body clothing 3 -MR Taking care of personal grooming (such as brushing teeth) 4 -MR Eating meals 4 -MR AM-PAC 6 Clicks Score (OT) 20 -MR Row Name 02/06/25 1406 How much help from another person do you currently need... Turning from your back to your side while in flat bed without using bedrails? 3 -ND Moving from lying on back to sitting on the side of a flat bed without bedrails? 3 -ND Moving to and from a bed to a chair (including a wheelchair)? 3 -ND Standing up from a chair using your arms (e.g., wheelchair, bedside chair)? 3 -ND Climbing 3-5 steps with a railing? 2 -ND To walk in hospital room? 3 -ND AM-PAC 6 Clicks Score (PT) 17 -ND Highest Level of Mobility Goal Stand (1 or More Minutes)-5 -ND Row Name 02/06/25 1542 02/06/25 1406 Functional Assessment Outcome Measure Options AM-PAC 6 Clicks Daily Activity (OT) -MR AM-PAC 6 Clicks Basic Mobility (PT)-ND User Metcalf (r) = Recorded By, (t) = Taken By, (c) = Cosigned By Initials Name Provider Type MR Sheba Vasquez, OT Occupational Therapist ND Amaris Reyes, PT Physical Therapist Occupational Therapy Education Title: PT OT FINISHED YARN EXAMINER Therapies (In Progress) Topic: Occupational Therapy (In Progress) Point: ADL training (Done) Learning Progress Summary Patient Acceptance, E, NR,VU by at 02/06/2025 1542 Acceptance, E,D, NR by at 02/04/2025 1116 Point: Precautions (Done) Learning Progress Summary Patient Acceptance, E, NR,VU by at 02/06/2025 1542 Acceptance, E,D, NR by at 02/04/2025 1116 Point: Body mechanics (Done) Learning Progress Summary Patient Acceptance, E, NR,VU by at 02/06/2025 1542 Acceptance, E,D, NR by at 02/04/2025 1116 User Metcalf Initials Effective Dates Name Provider Type Discipline 05/26/22 - Sheba Vasquez, OT Occupational Therapist OT 12/18/24 - Winter Burton OT Occupational Therapist OT OT Recommendation and Plan Plan of Care Review Plan of Care Reviewed With: patient Progress: improving Outcome Evaluation: Pt demonstrated improvements w/ transfers and mobility this date. Pt educated on AE for increased I and safety w/ ADLs. Pt very motivated to return to [facility]. Time Calculation: Time Calculation- OT Row Name 02/06/25 1543 02/06/25 1406 Time Calculation- OT OT Start Time 1442 -MR -- OT Received On 02/06/25 -MR -- Timed Charges 73383 - Gait Training Minutes -- 16 -ND 99504 - OT Therapeutic Activity Minutes 18 -MR -- 39854 - OT Self Care/Mgmt Minutes 20 -MR -- Total Minutes Timed Charges Total Minutes 38 -MR 16 -ND Total Minutes 38 -MR 16 -ND User Metcalf (r) = Recorded By, (t) = Taken By, (c) = Cosigned By Initials Name Provider Type Pedro Sheba, OT Occupational Therapist ND Amaris Reyes, FERNANDO Physical Therapist Therapy Charges for Today Code Description Service Date Service Provider Modifiers Qty 54454922030 HC OT THERAPEUTIC ACT EA 15 MIN 02/06/2025 Sheba Vasquez OT GO 1 13207649928 HC OT SELF CARE/MGMT/TRAIN EA 15 MIN 02/06/2025 Sheba Vasquez OT GO 2 Sheba Vasquez OT 02/06/2025 * Case Management/Social Work - Kristy Ramirez RN - 02/06/2025 2:23 PM EDT Case Management Discharge Note Final Note: Plan to transfer to [facility], skilled rehab on 02-07, insurance approved. Call report to [phone] and fax d/c summary [phone]. Transportation arranged with [facility] van and pick up attendant is 1530 on 02-06. Please have patient at the [address] M[address] Entrance by 1520. I talked with patient's and updated. I called patient's dtr and updated her on discharge. Selected Continued Care - Admitted Since 02/03/2025 Destination Coordination complete. Service Provider Services Address Phone Fax Patient Preferred [facility] [phone] , [facility] [phone] -- Durable Medical Equipment No services have been selected for the patient. Dialysis/Infusion No services have been selected for the patient. Home Medical Care No services have been selected for the patient. Therapy No services have been selected for the patient. Community Resources No services have been selected for the patient. Community & DME No services have been selected for the patient. Transportation Services Ambulance: [facility] Transportation Final Discharge Disposition Code: 03 - shelter facility (SNF) * Therapy Treatment Note - ShayAmaris jung, PT - 02/06/2025 11:14 AM EDT Images from the original note were not included. Patient Name: Gladys Mendes : 1945 Today's Date: 02/06/2025 Admit Date: 02/03/2025 Visit Dx: No diagnosis found. Patient Active Problem List Diagnosis Spondylolisthesis at L4-L5 level HTN (hypertension) Hyperlipidemia GERD (gastroesophageal reflux disease) S/P lumbar spinal fusion, decompression Obesity Acute postoperative pain Acute blood loss anemia, asymptomatic Lumbar stenosis with neurogenic claudication S/P lumbar spinal fusion (revision decompression L4-5, posterior lateral fusion L4-5) Past Medical History: Diagnosis Date Colitis Elevated cholesterol GERD (gastroesophageal reflux disease) History of transfusion [facility], no reaction Hyperlipidemia Hypertension Past Surgical History: Procedure Laterality Date BREAST BIOPSY Right multiple COLONOSCOPY HEMORRHOIDECTOMY LUMBAR DISCECTOMY FUSION INSTRUMENTATION N/A 05/16/2022 Procedure: LUMBAR DECOMPRESSION WITH FUSION INSTRUMENTATION WITH PEDICLE SCREWS, CAGE AND ALLOGRAFTL4-5; Surgeon: Vini Peterson MD; Location: [facility]; Service: Orthopedic Spine; Laterality: N/A; LUMBAR DISCECTOMY FUSION INSTRUMENTATION N/A 02/03/2025 Procedure: REVISION DECOMPRESSION WITH REVISED FUSION WITH PEDICLE SCREWS WITH CEMENT AUGMENTATION,AND HARDWARE REVISION L4-5; Surgeon: Vini Peterson MD; Location: [facility] OR; Service: Orthopedic Spine; Laterality: N/A; MASTOIDECTOMY Left x3 TUBAL ABDOMINAL LIGATION General Information Row Name 02/06/25133502/06/25 9604 Physical Therapy Time and Intention Document Type -- -ND therapy note (daily note) -ND Mode of Treatment -- -ND physical therapy -ND Row Name 02/06/25133502/06/25 6882 General Information Patient Profile Reviewed -- -ND yes -ND Existing Precautions/Restrictions -- fall;spinal -ND Barriers to Rehab -- previous functional deficit -ND Row Name 02/06/25 1154 Cognition Orientation Status (Cognition) oriented x 4 -ND Row Name 02/06/25 1154 Safety Issues/Impairments Affecting Functional Mobility Safety Issues Affecting Function (Mobility) awareness of need for assistance;insight into deficits/self-awareness;safety precaution awareness;sequencing abilities;positioning of assistive device -ND Impairments Affecting Function (Mobility) balance;endurance/activity tolerance;pain;postural/trunk control;range of motion (ROM);strength -ND User Metcalf (r) = Recorded By, (t) = Taken By, (c) = Cosigned By Initials Name Provider Type Amaris Rahman PT Physical Therapist Mobility Row Name 02/06/25 1401 Bed Mobility Comment, (Bed Mobility) Pt found and left sitting UIC. -ND Row Name 02/06/25 1401 Sit-Stand Transfer Sit-Stand [place] (Transfers) contact guard;verbal cues;nonverbal cues (demo/gesture) -ND Assistive Device (Sit-Stand Transfers) walker, front-wheeled -ND Comment, (Sit-Stand Transfer) from chair, from toilet. Increased pain in standing. -ND Row Name 02/06/25 1401 Gait/Stairs (Locomotion) [place] Level (Gait) minimum assist (75% patient effort);verbal cues;nonverbal cues (demo/gesture) -ND Assistive Device (Gait) walker, front-wheeled -ND Patient was able to Ambulate yes -ND Distance in Feet (Gait) 120 -ND Deviations/Abnormal Patterns (Gait) bilateral deviations;antalgic;anthony decreased;gait speed decreased;stride length decreased;left sided deviations -ND Bilateral Gait Deviations forward flexed posture;heel strike decreased -ND Left Sided Gait Deviations foot drop/toe drag -ND Comment, (Gait/Stairs) Pt ambulates with step-through gait pattern but reverts to step-to gait pattern at the end of the bout as she fatigues. Cues provided for forward gaze and upright posture. Intermittent standing rest breaks due to pain. -ND User Metcalf (r) = Recorded By, (t) = Taken By, (c) = Cosigned By Initials Name Provider Type Amaris Rahman PT Physical Therapist Obj/Interventions Row Name 02/06/25 1403 Balance Balance Assessment sitting static balance;sitting dynamic balance;standing static balance;standing dynamic balance -ND Static Sitting Balance standby assist -ND Dynamic Sitting Balance standby assist -ND Position, Sitting Balance unsupported;sitting in chair -ND Static Standing Balance contact guard -ND Dynamic Standing Balance contact guard -ND Position/Device Used, Standing Balance walker, front-wheeled -ND Balance Interventions sitting;standing;sit to stand;supported;static;dynamic -ND User Metcalf (r) = Recorded By, (t) = Taken By, (c) = Cosigned By Initials Name Provider Type Amaris Rahman, FERNANDO Physical Therapist Goals/Plan No documentation. Clinical Impression Row Name 02/06/25 1403 Pain Pretreatment Pain Rating 5/10 -ND Posttreatment Pain Rating 7/10 -ND Pain Location back -ND Pain Side/Orientation generalized -ND Pain Management Interventions positioning techniques utilized;exercise or physical activity utilized;activity modification encouraged;cold applied -ND Response to Pain Interventions activity participation with increased pain -ND Row Name 02/06/25 1403 Plan of Care Review Plan of Care Reviewed With patient;child -ND Progress improving -ND Outcome Evaluation Pt increases ambulation distance but continues to be limited by significant painthat extends down into LLE limiting ability to ambulate and mobilize efficiently. Pt continues to demonstrate progress but would further benefit from IP PT to continue addressing deficits. Recommend SNF following d/c for best functional outcome. -ND Row Name 02/06/25 1403 Vital Signs Pre Systolic BP Rehab -- RN approved tx. Pt non-tele upon PT arrival. -ND O2 Delivery Pre Treatment room air -ND O2 Delivery Intra Treatment room air -ND O2 Delivery Post Treatment room air -ND Pre Patient Position Sitting -ND Intra Patient Position Standing -ND Post Patient Position Sitting -ND Row Name 02/06/25 1403 Positioning and Restraints Pre-Treatment Position sitting in chair/recliner -ND Post Treatment Position chair -ND In Chair notified nsg;reclined;legs elevated;call light within reach;encouraged to call for assist;exit alarm on;waffle cushion ice -ND User Metcalf (r) = Recorded By, (t) = Taken By, (c) = Cosigned By Initials Name Provider Type Amaris Rahman, FERNANDO Physical Therapist Outcome Measures Row Name 02/06/25 1406 How much help from another person do you currently need... Turning from your back to your side while in flat bed without using bedrails? 3 -ND Moving from lying on back to sitting on the side of a flat bed without bedrails? 3 -ND Moving to and from a bed to a chair (including a wheelchair)? 3 -ND Standing up from a chair using your arms (e.g., wheelchair, bedside chair)? 3 -ND Climbing 3-5 steps with a railing? 2 -ND To walk in hospital room? 3 -ND AM-PAC 6 Clicks Score (PT) 17 -ND Highest Level of Mobility Goal Stand (1 or More Minutes)-5 -ND Row Name 02/06/25 1406 Functional Assessment Outcome Measure Options AM-PAC 6 Clicks Basic Mobility (PT) -ND User Metcalf (r) = Recorded By, (t) = Taken By, (c) = Cosigned By Initials Name Provider Type Amaris Rahman PT Physical Therapist Physical Therapy Education Title: PT OT FINISHED YARN EXAMINER Therapies (In Progress) Topic: Physical Therapy (Done) Point: Mobility training (Done) Learning Progress Summary Patient Acceptance, E, VU by ND at 02/06/2025 1406 Acceptance, E, VU by ND at 02/05/2025 1024 Acceptance, E, VU by ND at 02/04/2025 1346 Acceptance, E, VU by ND at 02/03/2025 1644 Point: Home exercise program (Done) Learning Progress Summary Patient Acceptance, E, VU by ND at 02/05/2025 1024 Acceptance, E, VU by ND at 02/04/2025 1346 Point: Body mechanics (Done) Learning Progress Summary Patient Acceptance, E, VU by ND at 02/06/2025 1406 Acceptance, E, VU by ND at 02/05/2025 1024 Acceptance, E, VU by ND at 02/04/2025 1346 Acceptance, E, VU by ND at 02/03/2025 1644 Point: Precautions (Done) Learning Progress Summary Patient Acceptance, E, VU by ND at 02/06/2025 1406 Acceptance, E, VU by ND at 02/05/2025 1024 Acceptance, E, VU by ND at 02/04/2025 1346 Acceptance, E, VU by ND at 02/03/2025 1644 User Metcalf Initials Effective Dates Name Provider Type Discipline ND 07/20/23 - Amaris Reyes PT Physical Therapist PT PT Recommendation and Plan Planned Therapy Interventions (PT): balance training, bed mobility training, gait training, patient/family education, home exercise program, transfer training, postural re-education, ROM (range of motion), stair training, strengthening Progress: improving Outcome Evaluation: Pt increases ambulation distance but continues to be limited by significant pain that extends down into LLE limiting ability to ambulate and mobilize efficiently. Pt continues to demonstrate progress but would further benefit from IP PT to continue addressing deficits. RecommendSNF following d/c for best functional outcome. Time Calculation: PT Evaluation Complexity History, PT Evaluation Complexity: 3 or more personal factors and/or comorbidities Examination of Body Systems (PT Eval Complexity): total of 4 or more elements Clinical Presentation (PT Evaluation Complexity): evolving Clinical Decision Making (PT Evaluation Complexity): moderate complexity Overall Complexity (PT Evaluation Complexity): moderate complexity PT Charges Row Name 02/06/25 1406 Time Calculation Start Time 1114 -ND PT Received On 02/06/25 -ND Timed Charges 44379 - Gait Training Minutes 16 -ND 41335 - PT Therapeutic Activity Minutes 10 -ND Total Minutes Timed Charges Total Minutes 26 -ND Total Minutes 26 -ND User Metcalf (r) = Recorded By, (t) = Taken By, (c) = Cosigned By Initials Name Provider Type ND Amaris Reyes PT Physical Therapist Therapy Charges for Today Code Description Service Date Service Provider Modifiers Qty 61656926378 HC PT THER PROC EA 15 MIN 02/05/2025 Amaris Reyes, PT GP 1 11313276316 HC GAIT TRAINING EA 15 MIN 02/05/2025 Amaris Reyes, PT GP 1 20236830127 HC PT THERAPEUTIC ACT EA 15 MIN 02/05/2025 Amaris Reyes, PT GP 1 31129810922 HC GAIT TRAINING EA 15 MIN 02/06/2025 Amaris Reyes, PT GP 1 68671363748 HC PT THERAPEUTIC ACT EA 15 MIN 02/06/2025 Amaris Reyes, PT GP 1 PT G-Codes Outcome Measure Options: AM-PAC 6 Clicks Basic Mobility (PT) AM-PAC 6 Clicks Score (PT): 17 AM-PAC 6 Clicks Score (OT): 20 PT Discharge Summary Anticipated Discharge Disposition (PT): shelter facility Amaris Reyes PT 02/06/2025 * Case Management/Social Work - David Noel, RN - 02/05/2025 2:42 PM EDT Continued Stay Note [facility] Patient Name: Gladys Mendes Today's Date: 02/05/2025 Admit Date: 02/03/2025 Plan: skilled rehab at [facility] in [place], pending insurance approval Discharge Plan Row Name 02/05/25 1440 Plan Plan skilled rehab at [facility], pending insurance approval Patient/Family in Agreement with Plan yes Plan Comments Met with patient and her family at the bedside to discuss discharge plan. Patient is agreeable to therapy's recommendation for inpatient rehab. Referrals given to Edyta with [facility] and Jes with [facility]. Patient accepts bed offer to [facility] in [place]. CM will initiate precertification for insurance approval today. CM will continue to follow and assist with discharge planning. Final Discharge Disposition Code 03 - shelter facility (SNF) Discharge Codes No documentation. David Noel RN * Therapy Treatment Note - Amaris Reyes, PT - 02/05/2025 9:07 AM EDT Images from the original note were not included. Patient Name: Gladys Mendes : 1945 Today's Date: 02/05/2025 Admit Date: 02/03/2025 Visit Dx: No diagnosis found. Patient Active Problem List Diagnosis Spondylolisthesis at L4-L5 level HTN (hypertension) Hyperlipidemia GERD (gastroesophageal reflux disease) S/P lumbar spinal fusion, decompression Obesity Acute postoperative pain Acute blood loss anemia, asymptomatic Lumbar stenosis with neurogenic claudication S/P lumbar spinal fusion (revision decompression L4-5, posterior lateral fusion L4-5) Past Medical History: Diagnosis Date Colitis Elevated cholesterol GERD (gastroesophageal reflux disease) History of transfusion [facility], no reaction Hyperlipidemia Hypertension Past Surgical History: Procedure Laterality Date BREAST BIOPSY Right multiple COLONOSCOPY HEMORRHOIDECTOMY LUMBAR DISCECTOMY FUSION INSTRUMENTATION N/A 05/16/2022 Procedure: LUMBAR DECOMPRESSION WITH FUSION INSTRUMENTATION WITH PEDICLE SCREWS, CAGE AND ALLOGRAFTL4-5; Surgeon: Vini Peterson MD; Location: [facility]; Service: Orthopedic Spine; Laterality: N/A; LUMBAR DISCECTOMY FUSION INSTRUMENTATION N/A 02/03/2025 Procedure: REVISION DECOMPRESSION WITH REVISED FUSION WITH PEDICLE SCREWS WITH CEMENT AUGMENTATION,AND HARDWARE REVISION L4-5; Surgeon: Vini Peterson MD; Location: [facility]; Service: Orthopedic Spine; Laterality: N/A; MASTOIDECTOMY Left x3 TUBAL ABDOMINAL LIGATION General Information Row Name 02/05/25 1010 Physical Therapy Time and Intention Document Type therapy note (daily note) -ND Mode of Treatment physical therapy -MS Row Name 02/05/25 1010 General Information Patient Profile Reviewed yes -ND Existing Precautions/Restrictions fall;spinal;other (see comments) Coordinate with pain medicine -ND Barriers to Rehab previous functional deficit -ND Row Name 02/05/25 1010 Cognition Orientation Status (Cognition) oriented x 4 -ND Row Name 02/05/25 1010 Safety Issues/Impairments Affecting Functional Mobility Safety Issues Affecting Function (Mobility) awareness of need for assistance;safety precaution awareness;sequencing abilities -ND Impairments Affecting Function (Mobility) balance;endurance/activity tolerance;pain;postural/trunk control;range of motion (ROM);strength -ND User Metcalf (r) = Recorded By, (t) = Taken By, (c) = Cosigned By Initials Name Provider Type ND Amaris Reyes, PT Physical Therapist Mobility Row Name 02/05/25 1010 Bed Mobility Comment, (Bed Mobility) Pt found and left sitting UIC. -ND Row Name 02/05/25 1010 Sit-Stand Transfer Sit-Stand [place] (Transfers) contact guard;nonverbal cues (demo/gesture);verbal cues -ND Assistive Device (Sit-Stand Transfers) walker, front-wheeled -ND Comment, (Sit-Stand Transfer) x1 from chair, x1 from toilet. Increased time for upright posture dueto pain. -ND Row Name 02/05/25 1010 Gait/Stairs (Locomotion) [place] Level (Gait) minimum assist (75% patient effort);verbal cues;nonverbal cues (demo/gesture) -ND Assistive Device (Gait) walker, front-wheeled -ND Patient was able to Ambulate yes -ND Distance in Feet (Gait) 15 + 75' -ND Deviations/Abnormal Patterns (Gait) bilateral deviations;antalgic;anthony decreased;gait speed decreased;stride length decreased;left sided deviations -ND Bilateral Gait Deviations forward flexed posture;heel strike decreased -ND Left Sided Gait Deviations foot drop/toe drag -ND Comment, (Gait/Stairs) Pt ambulates into bathroom and then out into hallway with RWx and min-A for stability. Pt continues to demonstrate forward flexed posture and decreased speed secondary to pain.Pt requires 2 standing rest breaks. Distance limited by pain and fatigue. -ND User Metcalf (r) = Recorded By, (t) = Taken By, (c) = Cosigned By Initials Name Provider Type Amaris Rahman PT Physical Therapist Obj/Interventions Row Name 02/05/25 1015 Motor Skills Therapeutic Exercise hip;knee;ankle -MS Row Name 02/05/25 1015 Hip (Therapeutic Exercise) Hip (Therapeutic Exercise) isometric exercises -ND Hip Isometrics (Therapeutic Exercise) bilateral;gluteal sets;other (see comments);10 repetitions abdominal setting -MS Row Name 02/05/25 1015 Knee (Therapeutic Exercise) Knee (Therapeutic Exercise) isometric exercises -ND Knee Isometrics (Therapeutic Exercise) bilateral;quad sets;10 repetitions -MS Row Name 02/05/25 1015 Ankle (Therapeutic Exercise) Ankle (Therapeutic Exercise) AROM (active range of motion) -ND Ankle AROM (Therapeutic Exercise) bilateral;dorsiflexion;plantarflexion;10 repetitions -MS Row Name 02/05/25 1015 Balance Balance Assessment sitting static balance;sitting dynamic balance;standing static balance;standing dynamic balance -ND Static Sitting Balance standby assist -ND Dynamic Sitting Balance standby assist -ND Position, Sitting Balance unsupported;sitting in chair -ND Static Standing Balance contact guard -ND Dynamic Standing Balance contact guard -ND Position/Device Used, Standing Balance supported;walker, front-wheeled -ND Balance Interventions sitting;standing;sit to stand;supported;static;dynamic -ND User Metcalf (r) = Recorded By, (t) = Taken By, (c) = Cosigned By Initials Name Provider Type Amaris Rahman PT Physical Therapist Goals/Plan No documentation. Clinical Impression Row Name 02/05/25 1018 Pain Pretreatment Pain Rating 7/10 -ND Posttreatment Pain Rating 4/10 -ND Pain Location back -ND Pain Side/Orientation bilateral;lower -ND Pain Management Interventions positioning techniques utilized;premedicated for activity;exercise orphysical activity utilized;activity modification encouraged;cold applied -ND Response to Pain Interventions intervention effective per patient report -ND Row Name 02/05/25 1018 Plan of Care Review Plan of Care Reviewed With patient;child -ND Progress improving -ND Outcome Evaluation Pt reporting decreased pain this date following functional mobility this date but continues to require min-A for transfers and gait. Pt continues to benefit from IP PT services to address functional deficits and promote return to baseline. Given that pt lives alone and her consistent high pain levels she is unsafe to return straight home at this time. Recommend SNF for best functional outcome. -ND Row Name 02/05/25 1018 Vital Signs Pre Systolic BP Rehab 132 -ND Pre Treatment Diastolic BP 86 -ND Post Systolic BP Rehab 134 -ND Post Treatment Diastolic BP 78 -ND O2 Delivery Pre Treatment room air -ND O2 Delivery Intra Treatment room air -ND O2 Delivery Post Treatment room air -ND Pre Patient Position Sitting -ND Intra Patient Position Standing -ND Post Patient Position Sitting -ND Row Name 02/05/25 1018 Positioning and Restraints Pre-Treatment Position sitting in chair/recliner -ND Post Treatment Position chair -ND In Chair notified nsg;reclined;legs elevated;call light within reach;encouraged to call for assist;exit alarm on;waffle cushion;with family/caregiver ice -ND User Metcalf (r) = Recorded By, (t) = Taken By, (c) = Cosigned By Initials Name Provider Type ND Amaris Reyes, FERNANDO Physical Therapist Outcome Measures Row Name 02/05/25 1024 How much help from another person do you currently need... Turning from your back to your side while in flat bed without using bedrails? 3 -ND Moving from lying on back to sitting on the side of a flat bed without bedrails? 3 -ND Moving to and from a bed to a chair (including a wheelchair)? 3 -ND Standing up from a chair using your arms (e.g., wheelchair, bedside chair)? 3 -ND Climbing 3-5 steps with a railing? 2 -ND To walk in hospital room? 3 -ND AM-PAC 6 Clicks Score (PT) 17 -ND Highest Level of Mobility Goal Stand (1 or More Minutes)-5 -ND Row Name 02/05/25 1024 Functional Assessment Outcome Measure Options AM-PAC 6 Clicks Basic Mobility (PT) -ND User Metcalf (r) = Recorded By, (t) = Taken By, (c) = Cosigned By Initials Name Provider Type ND Amaris Reyes PT Physical Therapist Physical Therapy Education Title: PT OT FINISHED YARN EXAMINER Therapies (In Progress) Topic: Physical Therapy (Done) Point: Mobility training (Done) Learning Progress Summary Patient Acceptance, E, VU by ND at 02/05/2025 1024 Acceptance, E, VU by ND at 02/04/2025 1346 Acceptance, E, VU by ND at 02/03/2025 1644 Point: Home exercise program (Done) Learning Progress Summary Patient Acceptance, E, VU by ND at 02/05/2025 1024 Acceptance, E, VU by ND at 02/04/2025 1346 Point: Body mechanics (Done) Learning Progress Summary Patient Acceptance, E, VU by ND at 02/05/2025 1024 Acceptance, E, VU by ND at 02/04/2025 1346 Acceptance, E, VU by ND at 02/03/2025 1644 Point: Precautions (Done) Learning Progress Summary Patient Acceptance, E, VU by ND at 02/05/2025 1024 Acceptance, E, VU by ND at 02/04/2025 1346 Acceptance, E, VU by ND at 02/03/2025 1644 User Metcalf Initials Effective Dates Name Provider Type Discipline ND 07/20/23 - Amaris Reyes, FERNANDO Physical Therapist PT PT Recommendation and Plan Planned Therapy Interventions (PT): balance training, bed mobility training, gait training, patient/family education, home exercise program, transfer training, postural re-education, ROM (range of motion), stair training, strengthening Progress: improving Outcome Evaluation: Pt reporting decreased pain this date following functional mobility this date but continues to require min-A for transfers and gait. Pt continues to benefit from IP PT services toaddress functional deficits and promote return to baseline. Given that pt lives alone and her consistent high pain levels she is unsafe to return straight home at this time. Recommend SNF for best functional outcome. Time Calculation: PT Evaluation Complexity History, PT Evaluation Complexity: 3 or more personal factors and/or comorbidities Examination of Body Systems (PT Eval Complexity): total of 4 or more elements Clinical Presentation (PT Evaluation Complexity): evolving Clinical Decision Making (PT Evaluation Complexity): moderate complexity Overall Complexity (PT Evaluation Complexity): moderate complexity PT Charges Row Name 02/05/25 1024 Time Calculation Start Time 0907 -ND PT Received On 02/05/25 -ND Timed Charges 79850 - PT Therapeutic Exercise Minutes 10 - 44363 - Gait Training Minutes 15 -ND 44347 - PT Therapeutic Activity Minutes 15 -ND Total Minutes Timed Charges Total Minutes 40 -ND Total Minutes 40 -ND User Metcalf (r) = Recorded By, (t) = Taken By, (c) = Cosigned By Initials Name Provider Type ND Amaris Reyes, PT Physical Therapist Therapy Charges for Today Code Description Service Date Service Provider Modifiers Qty 32697272185 HC GAIT TRAINING EA 15 MIN 02/04/2025 Amaris Reyes, PT GP 1 20648191020 HC PT THERAPEUTIC ACT EA 15 MIN 02/04/2025 Amaris Reyes, PT GP 1 [id number] HC PT THER PROC EA 15 MIN 02/05/2025 Amaris Reyes, PT GP 1 35327304894 HC GAIT TRAINING EA 15 MIN 02/05/2025 Amaris Reyes, PT GP 1 48036570165 HC PT THERAPEUTIC ACT EA 15 MIN 02/05/2025 Amaris Reyes, PT GP 1 PT G-Codes Outcome Measure Options: AM-PAC 6 Clicks Basic Mobility (PT) AM-PAC 6 Clicks Score (PT): 17 AM-PAC 6 Clicks Score (OT): 20 PT Discharge Summary Anticipated Discharge Disposition (PT): shelter facility Amaris Reyes PT 02/05/2025 * Therapy Treatment Note - Amaris Reyes PT - 02/04/2025 1:01 PM EDT Images from the original note were not included. Patient Name: Gladys Mendes : 1945 Today's Date: 02/04/2025 Admit Date: 02/03/2025 Visit Dx: No diagnosis found. Patient Active Problem List Diagnosis Spondylolisthesis at L4-L5 level HTN (hypertension) Hyperlipidemia GERD (gastroesophageal reflux disease) S/P lumbar spinal fusion, decompression Obesity Acute postoperative pain Acute blood loss anemia, asymptomatic Lumbar stenosis with neurogenic claudication S/P lumbar spinal fusion (revision decompression L4-5, posterior lateral fusion L4-5) Past Medical History: Diagnosis Date Colitis Elevated cholesterol GERD (gastroesophageal reflux disease) History of transfusion [facility], no reaction Hyperlipidemia Hypertension Past Surgical History: Procedure Laterality Date BREAST BIOPSY Right multiple COLONOSCOPY HEMORRHOIDECTOMY LUMBAR DISCECTOMY FUSION INSTRUMENTATION N/A 05/16/2022 Procedure: LUMBAR DECOMPRESSION WITH FUSION INSTRUMENTATION WITH PEDICLE SCREWS, CAGE AND ALLOGRAFTL4-5; Surgeon: Vini Peterson MD; Location: [facility]; Service: Orthopedic Spine; Laterality: N/A; LUMBAR DISCECTOMY FUSION INSTRUMENTATION N/A 02/03/2025 Procedure: REVISION DECOMPRESSION WITH REVISED FUSION WITH PEDICLE SCREWS WITH CEMENT AUGMENTATION,AND HARDWARE REVISION L4-5; Surgeon: Vini Peterson MD; Location: [facility] OR; Service: Orthopedic Spine; Laterality: N/A; MASTOIDECTOMY Left x3 TUBAL ABDOMINAL LIGATION General Information Row Name 02/04/25 1335 Physical Therapy Time and Intention Document Type therapy note (daily note) -ND Mode of Treatment physical therapy -ND Row Name 02/04/25 3525 General Information Patient Profile Reviewed yes -ND Existing Precautions/Restrictions fall;spinal;other (see comments) Hemovac -ND Barriers to Rehab previous functional deficit -ND Row Name 02/04/25 1335 Cognition Orientation Status (Cognition) oriented x 4 -ND Row Name 02/04/25 1339 Safety Issues/Impairments Affecting Functional Mobility Safety Issues Affecting Function (Mobility) awareness of need for assistance;insight into deficits/self-awareness;safety precaution awareness;safety precautions follow-through/compliance;sequencing abilities -ND Impairments Affecting Function (Mobility) balance;endurance/activity tolerance;pain;postural/trunk control;range of motion (ROM);strength -ND User Metcalf (r) = Recorded By, (t) = Taken By, (c) = Cosigned By Initials Name Provider Type ND Amaris Reyes, PT Physical Therapist Mobility Row Name 02/04/25 1337 Bed Mobility Comment, (Bed Mobility) Pt found in bathroom with family upon PT arrival. Left sitting UIC. -ND Row Name 02/04/25 1336 Sit-Stand Transfer Sit-Stand [place] (Transfers) contact guard;verbal cues;nonverbal cues (demo/gesture) -ND Assistive Device (Sit-Stand Transfers) walker, front-wheeled -ND Comment, (Sit-Stand Transfer) x1 from chair, increased time for upright posture. -ND Row Name 02/04/25 1336 Gait/Stairs (Locomotion) [place] Level (Gait) minimum assist (75% patient effort);verbal cues;nonverbal cues (demo/gesture) -ND Assistive Device (Gait) walker, front-wheeled -ND Patient was able to Ambulate yes -ND Distance in Feet (Gait) 100 -ND Deviations/Abnormal Patterns (Gait) bilateral deviations;antalgic;anthony decreased;gait speed decreased;stride length decreased;left sided deviations -ND Bilateral Gait Deviations forward flexed posture;heel strike decreased -ND Left Sided Gait Deviations foot drop/toe drag -ND Comment, (Gait/Stairs) Pt ambulates with step-through gait pattern, L foot drop, and decreased gaitspeed. Pt requires 1 standing rest break due to fatigue and pain levels. Cues provided for upright posture and forward gaze with excellent carryover. Overall distance limited by pain and fatigue. -ND User Metcalf (r) = Recorded By, (t) = Taken By, (c) = Cosigned By Initials Name Provider Type ND Amaris Reyes PT Physical Therapist Obj/Interventions Row Name 02/04/25 134 Motor Skills Therapeutic Exercise hip;knee;ankle -ND Row Name 02/04/25 134 Hip (Therapeutic Exercise) Hip (Therapeutic Exercise) isometric exercises -ND Hip Isometrics (Therapeutic Exercise) bilateral;gluteal sets;other (see comments);10 repetitions Abdominal setting -ND Row Name 02/04/25 134 Knee (Therapeutic Exercise) Knee (Therapeutic Exercise) strengthening exercise -ND Knee Strengthening (Therapeutic Exercise) bilateral;LAQ (long arc quad);10 repetitions -ND Row Name 02/04/25 134 Ankle (Therapeutic Exercise) Ankle (Therapeutic Exercise) AROM (active range of motion) -ND Ankle AROM (Therapeutic Exercise) bilateral;dorsiflexion;plantarflexion;10 repetitions -ND Row Name 02/04/25 134 Balance Balance Assessment sitting static balance;sitting dynamic balance;standing static balance;standing dynamic balance -ND Static Sitting Balance standby assist -ND Dynamic Sitting Balance standby assist -ND Position, Sitting Balance unsupported;sitting in chair -ND Static Standing Balance contact guard -ND Dynamic Standing Balance minimal assist -ND Position/Device Used, Standing Balance supported;walker, front-wheeled -ND Balance Interventions sitting;standing;sit to stand;supported;static;dynamic -ND User Metcalf (r) = Recorded By, (t) = Taken By, (c) = Cosigned By Initials Name Provider Type Amaris Rahman, PT Physical Therapist Goals/Plan No documentation. Clinical Impression Row Name 02/04/25 1341 Pain Pretreatment Pain Rating 7/10 -ND Posttreatment Pain Rating 6/10 -ND Pain Location back -ND Pain Side/Orientation lower -ND Pain Management Interventions positioning techniques utilized;exercise or physical activity utilized;activity modification encouraged;premedicated for activity;cold applied -ND Response to Pain Interventions intervention effective per patient report -ND Row Name 02/04/25 1341 Plan of Care Review Plan of Care Reviewed With patient;family -ND Progress no change -ND Outcome Evaluation Pt ambulates with RWx and min-A for stability but continues to be limited by pain and limited activity tolerance. Pt would benefit from continued IP PT services to address functional deficits and facilitate return to baseline. Recommend SNF following d/c. -ND Row Name 02/04/25 1341 Vital Signs Pre Systolic BP Rehab 114 -ND Pre Treatment Diastolic BP 67 -ND O2 Delivery Pre Treatment room air -ND O2 Delivery Intra Treatment room air -ND O2 Delivery Post Treatment room air -ND Pre Patient Position Standing -ND Intra Patient Position Standing -ND Post Patient Position Sitting -ND Row Name 02/04/25 1341 Positioning and Restraints Pre-Treatment Position bathroom -ND Post Treatment Position chair -ND In Chair notified nsg;reclined;legs elevated;call light within reach;encouraged to call for assist;exit alarm on;with family/caregiver;waffle cushion ice -ND User Metcalf (r) = Recorded By, (t) = Taken By, (c) = Cosigned By Initials Name Provider Type Amaris Rahman, FERNANDO Physical Therapist Outcome Measures Row Name 02/04/25 1345 How much help from another person do you currently need... Turning from your back to your side while in flat bed without using bedrails? 3 -ND Moving from lying on back to sitting on the side of a flat bed without bedrails? 3 -ND Moving to and from a bed to a chair (including a wheelchair)? 3 -ND Standing up from a chair using your arms (e.g., wheelchair, bedside chair)? 3 -ND Climbing 3-5 steps with a railing? 2 -ND To walk in hospital room? 3 -ND AM-PAC 6 Clicks Score (PT) 17 -ND Highest Level of Mobility Goal Stand (1 or More Minutes)-5 -ND Row Name 02/04/25 1345 02/04/25 1116 Functional Assessment Outcome Measure Options AM-PAC 6 Clicks Basic Mobility (PT) -MS AM-PAC 6 Clicks Daily Activity (OT)- User Metcalf (r) = Recorded By, (t) = Taken By, (c) = Cosigned By Initials Name Provider Type ND Amaris Reyes, PT Physical Therapist Winter Galvan, OT Occupational Therapist Physical Therapy Education Title: PT OT FINISHED YARN EXAMINER Therapies (In Progress) Topic: Physical Therapy (Done) Point: Mobility training (Done) Learning Progress Summary Patient Acceptance, E, VU by ND at 02/04/2025 1346 Acceptance, E, VU by ND at 02/03/2025 1644 Point: Home exercise program (Done) Learning Progress Summary Patient Acceptance, E, VU by ND at 02/04/2025 1346 Point: Body mechanics (Done) Learning Progress Summary Patient Acceptance, E, VU by ND at 02/04/2025 1346 Acceptance, E, VU by ND at 02/03/2025 1644 Point: Precautions (Done) Learning Progress Summary Patient Acceptance, E, VU by ND at 02/04/2025 1346 Acceptance, E, VU by ND at 02/03/2025 1644 User Metcalf Initials Effective Dates Name Provider Type Discipline MS 07/20/23 - Amaris Reyes, PT Physical Therapist PT PT Recommendation and Plan Planned Therapy Interventions (PT): balance training, bed mobility training, gait training, patient/family education, home exercise program, transfer training, postural re-education, ROM (range of motion), stair training, strengthening Progress: no change Outcome Evaluation: Pt ambulates with RWx and min-A for stability but continues to be limited by pain and limited activity tolerance. Pt would benefit from continued IP PT services to address functional deficits and facilitate return to baseline. Recommend SNF following d/c. Time Calculation: PT Evaluation Complexity History, PT Evaluation Complexity: 3 or more personal factors and/or comorbidities Examination of Body Systems (PT Eval Complexity): total of 4 or more elements Clinical Presentation (PT Evaluation Complexity): evolving Clinical Decision Making (PT Evaluation Complexity): moderate complexity Overall Complexity (PT Evaluation Complexity): moderate complexity PT Charges Row Name 02/04/25 1346 Time Calculation Start Time 1301 -ND PT Received On 02/04/25 -ND Timed Charges 48641 - Gait Training Minutes 10 -ND 39363 - PT Therapeutic Activity Minutes 17 -ND Total Minutes Timed Charges Total Minutes 27 - Total Minutes User Metcalf (r) = Recorded By, (t) = Taken By, (c) = Cosigned By Initials Name Provider Type ND Amaris Reyes, PT Physical Therapist Therapy Charges for Today Code Description Service Date Service Provider Modifiers Qty 18529982968 HC PT EVAL MOD COMPLEXITY 4 02/03/2025 Amaris Reyes, PT GP 1 52009903218 HC PT THER SUPP EA 15 MIN 02/03/2025 Amaris Reyes, PT GP 3 [id number] HC GAIT TRAINING EA 15 MIN 02/04/2025 Amaris Reyes, PT GP 1 03152557333 HC PT THERAPEUTIC ACT EA 15 MIN 02/04/2025 Amaris Reyes, PT GP 1 PT G-Codes Outcome Measure Options: AM-PAC 6 Clicks Basic Mobility (PT) AM-PAC 6 Clicks Score (PT): 17 AM-PAC 6 Clicks Score (OT): 20 PT Discharge Summary Anticipated Discharge Disposition (PT): shelter facility Amaris Reyes PT 02/04/2025 * Case Management/Social Work - David Noel RN - 02/04/2025 12:28 PM EDT Discharge Planning Assessment [facility] Patient Name: Gladys Mendes Today's Date: 02/04/2025 Admit Date: 02/03/2025 Plan: home Discharge Needs Assessment Row Name 02/04/25 1225 Living Environment People in Home child(teresita), adult Current Living Arrangements home Potentially Unsafe Housing Conditions none In the past 12 months has the electric, gas, oil, or water company threatened to shut off services in your home? No Primary Care Provided by self Provides Primary Care For no one, unable/limited ability to care for self Family Caregiver if Needed child(teresita), adult Quality of Family Relationships helpful;involved;supportive Able to Return to Prior Arrangements yes Resource/Environmental Concerns Resource/Environmental Concerns none Transportation Needs In the past 12 months, has lack of transportation kept you from medical appointments or from getting medications? no In the past 12 months, has lack of transportation kept you from meetings, work, or from getting things needed for daily living? No Food Insecurity Within the past 12 months, you worried that your food would run out before you got the money to buymore. Never true Within the past 12 months, the food you bought just didn't last and you didn't have money to get more. 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 Patient lives with her son in a house in [facility]. There is 1 step to enter the home. At baseline, patient is independent with ADLs and uses a rolling walker, cane, rollator, and shower chair. Patient denies any home health services or home oxygen use. Patient has [employer] Medicare with prescription benefits and prefers to fill scripts at [facility]. Patient's goal is home at discharge. Son will transport. CM will continue to follow and assist with discharge planning as recommendations become available. Final Discharge Disposition Code 01 - home or self-care Demographic Summary Row Name 02/04/25 1227 General Information Admission Type inpatient Arrived From home Referral Source physician Reason for Consult discharge planning Preferred Language Senegalese General Information Comments PCP Placido Mercado Contact Information Permission Granted to Share Info With family/designee Contact Information Comments Carolann Stanton (Daughter) Functional Status Row Name 02/04/25 1223 Functional Status Usual Activity Tolerance good Current Activity Tolerance moderate Functional Status, IADL Medications independent Meal Preparation independent Housekeeping independent Laundry independent Shopping assistive person Mental Status General Appearance WDL WDL Mental Status Summary Recent Changes in Mental Status/Cognitive Functioning no changes Employment/ Employment Status retired Psychosocial No documentation. Abuse/Neglect No documentation. Legal No documentation. Substance Abuse No documentation. Patient Forms No documentation. David Noel RN * Therapy Evaluation - Winter Burton OT - 02/04/2025 8:35 AM EDT Images from the original note were not included. Patient Name: Gladys Mendes : 1945 Today's Date: 02/04/2025 Admit Date: 02/03/2025 Visit Dx: No diagnosis found. Patient Active Problem List Diagnosis Spondylolisthesis at L4-L5 level HTN (hypertension) Hyperlipidemia GERD (gastroesophageal reflux disease) S/P lumbar spinal fusion, decompression Obesity Acute postoperative pain Acute blood loss anemia, asymptomatic Lumbar stenosis with neurogenic claudication S/P lumbar spinal fusion (revision decompression L4-5, posterior lateral fusion L4-5) Past Medical History: Diagnosis Date Colitis Elevated cholesterol GERD (gastroesophageal reflux disease) History of transfusion [facility], no reaction Hyperlipidemia Hypertension Past Surgical History: Procedure Laterality Date BREAST BIOPSY Right multiple COLONOSCOPY HEMORRHOIDECTOMY LUMBAR DISCECTOMY FUSION INSTRUMENTATION N/A 05/16/2022 Procedure: LUMBAR DECOMPRESSION WITH FUSION INSTRUMENTATION WITH PEDICLE SCREWS, CAGE AND ALLOGRAFTL4-5; Surgeon: Vini Peterson MD; Location: [facility] OR; Service: Orthopedic Spine; Laterality: N/A; LUMBAR DISCECTOMY FUSION INSTRUMENTATION N/A 02/03/2025 Procedure: REVISION DECOMPRESSION WITH REVISED FUSION WITH PEDICLE SCREWS WITH CEMENT AUGMENTATION,AND HARDWARE REVISION L4-5; Surgeon: Vini Peterson MD; Location: [facility]; Service: Orthopedic Spine; Laterality: N/A; MASTOIDECTOMY Left x3 TUBAL ABDOMINAL LIGATION General Information Row Name 02/04/2544 OT Time and Intention Document Type evaluation -SA Mode of Treatment occupational therapy - Row Name 02/04/25943 General Information Patient Profile Reviewed yes -SA Prior Level of Function independent:;all household mobility;gait;transfer;bed mobility;ADL's Uses rollator at baseline, owns RWx; primarily household distance ambulator; hx of chronic left foot drop -SA Existing Precautions/Restrictions fall;spinal;other (see comments) Hemovac - Barriers to Rehab previous functional deficit -SA Row Name 02/04/25943 Occupational Profile Occupational History/Life Experiences (Occupational Profile) Owns SPC, quad cane, elevated toilet seat, WIS with shower chair -SA Row Name 02/04/25943 Living Environment Current Living Arrangements home -SA People in Home child(teresita), adult - Row Name 02/04/25943 Home Main Entrance Number of Stairs, Main Entrance one Access to ramp -SA Stair Railings, Main Entrance none - Row Name 02/04/25943 Stairs Within Home, Primary Stair Railings, Within Home, Primary none -SA Row Name 02/04/25943 Cognition Orientation Status (Cognition) oriented x 4 - Row Name 02/04/25943 Safety Issues/Impairments Affecting Functional Mobility Safety Issues Affecting Function (Mobility) awareness of need for assistance;positioning of assistive device;safety precaution awareness;safety precautions follow-through/compliance;sequencing abilities - Impairments Affecting Function (Mobility) balance;endurance/activity tolerance;pain;postural/trunk control;range of motion (ROM);strength - User Metcalf (r) = Recorded By, (t) = Taken By, (c) = Cosigned By Initials Name Provider Type SA Winter Burton OT Occupational Therapist Mobility/ADL's Row Name 02/04/2564 Bed Mobility Bed Mobility rolling right;scooting/bridging;supine-sit - Rolling Right [place] (Bed Mobility) verbal cues;minimum assist (75% patient effort) - Scooting/Bridging [place] (Bed Mobility) standby assist;verbal cues - Supine-Sit [place] (Bed Mobility) minimum assist (75% patient effort);nonverbal cues (demo/gesture);verbal cues - Assistive Device (Bed Mobility) bed rails;head of bed elevated - Comment, (Bed Mobility) Increased time and effort secondary to pain; verbal cues for log roll and sequencing; Min A for trunk - Row Name 02/04/25946 Transfers Transfers sit-stand transfer;stand-sit transfer;toilet transfer - Row Name 02/04/25946 Sit-Stand Transfer Sit-Stand [place] (Transfers) verbal cues;contact guard - Assistive Device (Sit-Stand Transfers) walker, front-wheeled - Comment, (Sit-Stand Transfer) VC for hand placement; 1x from EOB, 1x from chair to complete LBD - Row Name 02/04/25946 Stand-Sit Transfer Stand-Sit [place] (Transfers) verbal cues;contact guard - Assistive Device (Stand-Sit Transfers) walker, front-wheeled - Comment, (Stand-Sit Transfer) VC to reach back for arm rests of chair - Row Name 02/04/25946 Toilet Transfer Type (Toilet Transfer) sit-stand;stand-sit - [place] Level (Toilet Transfer) verbal cues;contact guard - Assistive Device (Toilet Transfer) grab bars/safety frame;raised toilet seat - Comment, (Toilet Transfer) VC for sequencing - Row Name 02/04/25946 Functional Mobility Functional Mobility- Ind. Level contact guard assist - Functional Mobility- Device walker, front-wheeled - Functional Mobility-Distance (Feet) -- To/from restroom within room - Patient was able to Ambulate yes - Row Name 02/04/25946 Activities of Daily Living BADL Assessment/Intervention upper body dressing;lower body dressing;grooming;toileting - Row Name 02/04/25946 Upper Body Dressing Assessment/Training [place] Level (Upper Body Dressing) doff;don;bra/undergarment;pull-over garment;minimum assist(75% patient effort) - Position (Upper Body Dressing) unsupported sitting - Row Name 02/04/25946 Lower Body Dressing Assessment/Training [place] Level (Lower Body Dressing) don;pants/bottoms;verbal cues;minimum assist (75% patient effort) - Assistive Devices (Lower Body Dressing) relief driller - Position (Lower Body Dressing) unsupported sitting -SA Comment, (Lower Body Dressing) Pt educated on spinal precautions for LBD; pt provided AE for LBD; pt practiced with relief driller and completed LBD with reach, Min A, and verbal cues; pt needs education and practice with sock aid and long handled shoe horn - Row Name 02/04/25 0947 Grooming Assessment/Training [place] Level (Grooming) wash face, hands;contact guard assist -SA Position (Grooming) sink side -[facility] Name 02/04/25 0947 Toileting Assessment/Training [place] Level (Toileting) perform perineal hygiene;standby assist -SA Assistive Devices (Toileting) commode;raised toilet seat -SA Position (Toileting) unsupported sitting - User Metcalf (r) = Recorded By, (t) = Taken By, (c) = Cosigned By Initials Name Provider Type Winter Galvan OT Occupational Therapist Obj/Interventions Row Name 02/04/25 0955 Sensory Assessment (Somatosensory) Sensory Assessment (Somatosensory) UE sensation intact - Sensory Assessment Reports intermittent numbness/tingling BLEs -[facility] Name 02/04/25 0955 Vision Assessment/Intervention Visual Impairment/Limitations WFL -[facility] Name 02/04/25 0955 Range of Motion Comprehensive General Range of Motion bilateral upper extremity ROM WNL -[facility] Name 02/04/25 0955 Strength Comprehensive (MMT) Comment, General Manual Muscle Testing (MMT) Assessment BUE grossly L -[facility] Name 02/04/25 0955 Balance Balance Assessment sitting static balance;sitting dynamic balance;sit to stand dynamic balance;standing static balance;standing dynamic balance - Static Sitting Balance standby assist - Dynamic Sitting Balance contact guard -SA Position, Sitting Balance unsupported;sitting in chair;sitting edge of bed - Sit to Stand Dynamic Balance contact guard -SA Static Standing Balance contact guard -SA Dynamic Standing Balance contact guard -SA Position/Device Used, Standing Balance supported;walker, rolling - Balance Interventions sitting;standing;sit to stand;supported;static;dynamic;minimal challenge;occupation based/functional task - Comment, Balance No LOB at this [facility] - User Metcalf (r) = Recorded By, (t) = Taken By, (c) = Cosigned By Initials Name Provider Type Winter Galvan OT Occupational Therapist Goals/Plan Row Name 02/04/25 111 Bed Mobility Goal 1 (OT) Activity/Assistive Device (Bed Mobility Goal 1, OT) bed mobility activities, all -SA [place] Level/Cues Needed (Bed Mobility Goal 1, OT) independent -SA Time Frame (Bed Mobility Goal 1, OT) ski tow operator goal (LTG);10 days -SA Progress/Outcomes (Bed Mobility Goal 1, OT) new goal -[facility] Name 02/04/25 111 Bathing Goal 1 (OT) Activity/Device (Bathing Goal 1, OT) bathing skills, all -SA [place] Level/Cues Needed (Bathing Goal 1, OT) independent -SA Time Frame (Bathing Goal 1, OT) ski tow operator goal (LTG);10 days -SA Progress/Outcomes (Bathing Goal 1, OT) new goal -[facility] Name 02/04/25 111 Dressing Goal 1 (OT) Activity/Device (Dressing Goal 1, OT) dressing skills, all -SA [place]/Cues Needed (Dressing Goal 1, OT) independent -SA Time Frame (Dressing Goal 1, OT) intermediate goal (LTG);10 days -SA Progress/Outcome (Dressing Goal 1, OT) new goal -[facility] Name 02/04/25 111 Problem Specific Goal 1 (OT) Problem Specific Goal 1 (OT) Pt will recall 3/3 spinal precautions without cues -SA Time Frame (Problem Specific Goal 1, OT) short term goal (STG);5 days -SA Progress/Outcome (Problem Specific Goal 1, OT) new goal -[facility] Name 02/04/25 111 Therapy Assessment/Plan (OT) Planned Therapy Interventions (OT) activity tolerance training;adaptive equipment training;BADL retraining;functional balance retraining;occupation/activity based interventions;patient/caregiver educa tion/training;ROM/therapeutic exercise;strengthening exercise;transfer/mobility retraining - User Metcalf (r) = Recorded By, (t) = Taken By, (c) = Cosigned By Initials Name Provider Type Winter Galvan OT Occupational Therapist Clinical Impression [facility] Name 02/04/25 0957 Pain Assessment Pretreatment Pain Rating 2/10 -SA Posttreatment Pain Rating 6/10 -SA Pain Location back -SA Pain Side/Orientation lower -SA Pain Management Interventions activity modification encouraged;exercise or physical activity utilized;positioning techniques utilized;nursing notified -SA Response to Pain Interventions activity participation with tolerable pain - Row Name 02/04/25 0957 Plan of Care Review Plan of Care Reviewed With patient - Progress no change -SA Outcome Evaluation OT evaluation completed. Pt educated on spinal precautions. Pt provided and educated on AE, would benefit from additional ecduation and practice. Pt required Min A for bed mobility. Pt completed fxnl mobility and toilet transfer with RWx and CGA. Pt required Min A for LBD this date. Pt presents below baseline level of functioning secondary to weakness, decreased activity tolerance, pain, and decreased independence with ADLs and fxnl mobility and would benefit from skilled IPOT services to improve fxnl status. OT recommends SNF at discharge. - Row Name 02/04/2557 Therapy Assessment/Plan (OT) Rehab Potential (OT) good - Criteria for Skilled Therapeutic Interventions Met (OT) yes;meets criteria;skilled treatment is necessary - Therapy Frequency (OT) daily - Predicted Duration of Therapy Intervention (OT) 10 days - Row Name 02/04/25 0957 Therapy Plan Review/Discharge Plan (OT) Anticipated Discharge Disposition (OT) shelter facility - Row Name 02/04/25 0957 Vital Signs Pre Systolic BP Rehab 120 -SA Pre Treatment Diastolic BP 66 -SA Pre SpO2 (%) 96 -SA O2 Delivery Pre Treatment room air -SA Pre Patient Position Supine - Row Name 02/04/2557 Positioning and Restraints Pre-Treatment Position in bed -SA Post Treatment Position chair -SA In Chair notified nsg;reclined;call light within reach;encouraged to call for assist;exit alarm on;with family/caregiver;waffle cushion;legs elevated - User Metcalf (r) = Recorded By, (t) = Taken By, (c) = Cosigned By Initials Name Provider Type SA Winter Burton, OT Occupational Therapist Outcome Measures Row Name 02/04/25 1116 How much help from another is currently needed... Putting on and taking off regular lower body clothing? 3 -SA Bathing (including washing, rinsing, and drying) 3 -SA Toileting (which includes using toilet bed smith or urinal) 3 -SA Putting on and taking off regular upper body clothing 3 -SA Taking care of personal grooming (such as brushing teeth) 4 -SA Eating meals 4 -SA AM-PAC 6 Clicks Score (OT) 20 -SA Row Name 02/04/25 1116 Functional Assessment Outcome Measure Options AM-PAC 6 Clicks Daily Activity (OT) - User Metcalf (r) = Recorded By, (t) = Taken By, (c) = Cosigned By Initials Name Provider Type SA Winter Burton OT Occupational Therapist Occupational Therapy Education Title: PT OT FINISHED YARN EXAMINER Therapies (In Progress) Topic: Occupational Therapy (In Progress) Point: ADL training (In Progress) Learning Progress Summary Patient Acceptance, E,D, NR by at 02/04/2025 1116 Point: Precautions (In Progress) Learning Progress Summary Patient Acceptance, E,D, NR by at 02/04/2025 1116 Point: Body mechanics (In Progress) Learning Progress Summary Patient Acceptance, E,D, NR by at 02/04/2025 1116 User Metcalf Initials Effective Dates Name Provider Type Discipline 12/18/24 - Winter Burton OT Occupational Therapist OT OT Recommendation and Plan Planned Therapy Interventions (OT): activity tolerance training, adaptive equipment training, BADL retraining, functional balance retraining, occupation/activity based interventions, patient/caregiver education/training, ROM/therapeutic exercise, strengthening exercise, transfer/mobility retraining Therapy Frequency (OT): daily Plan of Care Review Plan of Care Reviewed With: patient Progress: no change Outcome Evaluation: OT evaluation completed. Pt educated on spinal precautions. Pt provided and educated on AE, would benefit from additional ecduation and practice. Pt required Min A for bed mobility. Pt completed fxnl mobility and toilet transfer with RWx and CGA. Pt required Min A for LBD this date. Pt presents below baseline level of functioning secondary to weakness, decreased activity tolerance, pain, and decreased independence with ADLs and fxnl mobility and would benefit from skilled IPOT services to improve fxnl status. OT recommends SNF at discharge. Time Calculation: Evaluation Complexity (OT) Review Occupational Profile/Medical/Therapy History Complexity: expanded/moderate complexity Assessment, Occupational Performance/Identification of Deficit Complexity: 3-5 performance deficits Clinical Decision Making Complexity (OT): detailed assessment/moderate complexity Overall Complexity of Evaluation (OT): moderate complexity Time Calculation- OT Row Name 02/04/25 1117 Time Calculation- OT OT Start Time 08 OT Received On 02/04/25 OT Goal Re-Cert Due Date 06/13/25 -SA Timed Charges 96614 - OT Self Care/Mgmt Minutes 15 -SA Untimed Charges OT Eval/Re-eval Minutes 65 -SA Total Minutes Timed Charges Total Minutes 15 -SA Untimed Charges Total Minutes 65 -SA Total Minutes 80 -SA User Metcalf (r) = Recorded By, (t) = Taken By, (c) = Cosigned By Initials Name Provider Type SA Winter Burton OT Occupational Therapist Therapy Charges for Today Code Description Service Date Service Provider Modifiers Qty [id number] OT SELF CARE/MGMT/TRAIN EA 15 MIN 02/04/2025 Winter Burton OT GO 1 [id number] HC-OT EVAL MOD COMPLEXITY 5 02/04/2025 Winter Burton OT 1 Winter Burton OT 02/04/2025 * Therapy Evaluation - Amaris Reyes, PT - 02/03/2025 3:35 PM EDT Images from the original note were not included. Patient Name: Gladys Mendes : 1945 Today's Date: 02/03/2025 Admit Date: 02/03/2025 Visit Dx: No diagnosis found. Patient Active Problem List Diagnosis Spondylolisthesis at L4-L5 level HTN (hypertension) Hyperlipidemia GERD (gastroesophageal reflux disease) S/P lumbar spinal fusion, decompression Obesity Acute postoperative pain Acute blood loss anemia, asymptomatic Lumbar stenosis with neurogenic claudication Past Medical History: Diagnosis Date Colitis Elevated cholesterol GERD (gastroesophageal reflux disease) History of transfusion [facility], no reaction Hyperlipidemia Hypertension Past Surgical History: Procedure Laterality Date BREAST BIOPSY Right multiple COLONOSCOPY HEMORRHOIDECTOMY LUMBAR DISCECTOMY FUSION INSTRUMENTATION N/A 05/16/2022 Procedure: LUMBAR DECOMPRESSION WITH FUSION INSTRUMENTATION WITH PEDICLE SCREWS, CAGE AND ALLOGRAFTL4-5; Surgeon: Vini Peterson MD; Location: [facility]; Service: Orthopedic Spine; Laterality: N/A; MASTOIDECTOMY Left x3 TUBAL ABDOMINAL LIGATION General Information Row Name 02/03/25 1634 Physical Therapy Time and Intention Document Type evaluation -ND Mode of Treatment physical therapy -ND Row Name 02/03/25 1635 General Information Patient Profile Reviewed yes -ND Prior Level of Function independent:;all household mobility;gait;transfer;bed mobility Uses rollator at baseline but has RWx. Chronic L foot drop. Mostly household ambulator. -ND Existing Precautions/Restrictions fall;spinal;other (see comments) Hemovac -ND Barriers to Rehab previous functional deficit -ND Row Name 02/03/25 1635 Living Environment Current Living Arrangements home -ND People in Home child(teresita), adult -ND Row Name 02/03/25 1635 Home Main Entrance Number of Stairs, Main Entrance one -ND Stair Railings, Main Entrance none -ND Row Name 02/03/25 1635 Stairs Within Home, Primary Number of Stairs, Within Home, Primary none -ND Row Name 02/03/25 1635 Cognition Orientation Status (Cognition) oriented x 3 -ND Row Name 02/03/25 1635 Safety Issues/Impairments Affecting Functional Mobility Safety Issues Affecting Function (Mobility) awareness of need for assistance;safety precaution awareness;safety precautions follow- through/compliance;sequencing abilities -ND Impairments Affecting Function (Mobility) balance;endurance/activity tolerance;pain;postural/trunk control;range of motion (ROM);strength;motor control -ND User Metcalf (r) = Recorded By, (t) = Taken By, (c) = Cosigned By Initials Name Provider Type ND Amaris Reyes, PT Physical Therapist Mobility Row Name 02/03/25 1637 Bed Mobility Bed Mobility supine-sit;sit-supine -ND Supine-Sit [place] (Bed Mobility) minimum assist (75% patient effort);nonverbal cues (demo/gesture);verbal cues -ND Sit-Supine [place] (Bed Mobility) minimum assist (75% patient effort);nonverbal cues (demo/gesture);verbal cues -ND Assistive Device (Bed Mobility) bed rails;head of bed elevated -ND Comment, (Bed Mobility) Increased time for task secondary to pain. Min-A with cues for log roll technique. -ND Row Name 02/03/25 163 Sit-Stand Transfer Sit-Stand [place] (Transfers) minimum assist (75% patient effort);verbal cues;nonverbal cues (demo/gesture) -ND Assistive Device (Sit-Stand Transfers) walker, front-wheeled -ND Comment, (Sit-Stand Transfer) Cues for hand placement. Increased time for upright posture. -ND Row Name 02/03/25 1637 02/03/25 1625 Gait/Stairs (Locomotion) [place] Level (Gait) minimum assist (75% patient effort);1 person assist;1 person to manage equipment;verbal cues;nonverbal cues (demo/gesture) -ND -- Assistive Device (Gait) walker, front-wheeled -ND -- Patient was able to Ambulate yes -ND yes -ND Distance in Feet (Gait) 150 -ND 150 -ND Deviations/Abnormal Patterns (Gait) bilateral deviations;antalgic;anthony decreased;gait speed decreased;stride length decreased;left sided deviations -ND -- Bilateral Gait Deviations forward flexed posture;heel strike decreased -ND -- Left Sided Gait Deviations foot drop/toe drag -ND -- Comment, (Gait/Stairs) Pt ambulates with decreased speed, decreased stride length, L foot drop (chronic), and step-through gait pattern with RWx and chair follow for safety. Cues provided for forwardgaze and increased stride length. Pt requires 1 standing rest break during ambulation bout. -ND -- User Metcalf (r) = Recorded By, (t) = Taken By, (c) = Cosigned By Initials Name Provider Type ND Amaris Reyes PT Physical Therapist Obj/Interventions Row Name 02/03/25 1639 Range of Motion Comprehensive General Range of Motion lower extremity range of motion deficits identified -ND Comment, General Range of Motion Chronic L foot drop. -ND Row Name 02/03/25 1639 Strength Comprehensive (MMT) General Manual Muscle Testing (MMT) Assessment lower extremity strength deficits identified -ND Comment, General Manual Muscle Testing (MMT) Assessment BLE grossly 4-/5. -ND Row Name 02/03/25 1639 Balance Balance Assessment sitting static balance;sitting dynamic balance;standing static balance;standing dynamic balance -ND Static Sitting Balance standby assist -ND Dynamic Sitting Balance contact guard -ND Position, Sitting Balance unsupported;sitting edge of bed -ND Static Standing Balance contact guard -ND Dynamic Standing Balance minimal assist -ND Position/Device Used, Standing Balance supported;walker, front-wheeled -ND Balance Interventions sitting;standing;sit to stand;supported;static;dynamic -ND Comment, Balance No knee buckling or LOB noted. -ND Row Name 02/03/25 1639 Sensory Assessment (Somatosensory) Sensory Assessment (Somatosensory) LE sensation intact -ND User Metcalf (r) = Recorded By, (t) = Taken By, (c) = Cosigned By Initials Name Provider Type ND Amaris Reyes, PT Physical Therapist Goals/Plan Row Name 02/03/251642 Bed Mobility Goal 1 (PT) Activity/Assistive Device (Bed Mobility Goal 1, PT) sit to supine/supine to sit -ND [place] Level/Cues Needed (Bed Mobility Goal 1, PT) modified independence -ND Time Frame (Bed Mobility Goal 1, PT) short term goal (STG);3 days -ND Row Name 02/03/251642 Transfer Goal 1 (PT) Activity/Assistive Device (Transfer Goal 1, PT) ony-ce-uqsgx/pbmfs-se-qbd;nfr-qp-ixlim/xposf-ea-stm-ND [place] Level/Cues Needed (Transfer Goal 1, PT) modified independence -ND Time Frame (Transfer Goal 1, PT) intermediate goal (LTG);5 days -ND Row Name 02/03/251642 Gait Training Goal 1 (PT) Activity/Assistive Device (Gait Training Goal 1, PT) gait (walking locomotion);increase endurance/gait distance;decrease fall risk -ND [place] Level (Gait Training Goal 1, PT) modified independence -ND Distance (Gait Training Goal 1, PT) 250 -ND Time Frame (Gait Training Goal 1, PT) ski tow operator goal (LTG);5 days -ND Row Name 02/03/251642 Balance Goal 1 (PT) Activity/Assistive Device (Balance Goal) with functional mobility activities -ND [place] Level/Cues Needed (Balance Goal 1, PT) modified independence -ND Time Frame (Balance Goal 1, PT) long-term goal (LTG);5-7 days -ND Row Name 02/03/251642 Stairs Goal 1 (PT) Activity/Assistive Device (Stairs Goal 1, PT) ascending stairs;descending stairs -ND [place] Level/Cues Needed (Stairs Goal 1, PT) modified independence -ND Number of Stairs (Stairs Goal 1, PT) 1 -ND Time Frame (Stairs Goal 1, PT) ski tow operator goal (LTG);5 days -ND Row Name 02/03/251642 Therapy Assessment/Plan (PT) Planned Therapy Interventions (PT) balance training;bed mobility training;gait training;patient/family education;home exercise program;transfer training;postural re-education;ROM (range of motion);stair training;strengthening -ND User Metcalf (r) = Recorded By, (t) = Taken By, (c) = Cosigned By Initials Name Provider Type Amaris Rahman, PT Physical Therapist Clinical Impression Row Name 02/03/25 1641 Pain Pretreatment Pain Rating 5/10 -ND Posttreatment Pain Rating 9/10 -ND Pain Location back -ND Pain Side/Orientation generalized -ND Pain Management Interventions positioning techniques utilized;exercise or physical activity utilized;activity modification encouraged;nursing notified -ND Response to Pain Interventions activity participation with increased pain -ND Row Name 02/03/25 1641 Plan of Care Review Plan of Care Reviewed With patient -ND Outcome Evaluation PT evaluation completed. Pt ambulates 150' with RWx and min-A with chair follow for safety but is ultimately limited by pain and fatigue. Post-op precautions reviewed with pt and pt requires cueing t/o session to maintain. Pt reports being home alone during days and a recent functional decline due to her back pain. Recommend SNF following d/c pending improvements in pain and overall functional mobility. -ND Row Name 02/03/25 1641 Therapy Assessment/Plan (PT) Patient/Family Therapy Goals Statement (PT) Improve pain -ND Rehab Potential (PT) limited -ND Criteria for Skilled Interventions Met (PT) yes;meets criteria;skilled treatment is necessary -ND Therapy Frequency (PT) daily -ND Predicted Duration of Therapy Intervention (PT) 5 days -ND Row Name 02/03/25 1641 Vital Signs Pre Systolic BP Rehab 104 -ND Pre Treatment Diastolic BP 73 -ND Post Systolic BP Rehab 138 -ND Post Treatment Diastolic BP 88 -ND Pretreatment Heart Rate (beats/min) 92 -ND Posttreatment Heart Rate (beats/min) 97 -ND Pre SpO2 (%) 92 -ND O2 Delivery Pre Treatment room air -ND O2 Delivery Intra Treatment room air -ND Post SpO2 (%) 91 -ND O2 Delivery Post Treatment room air -ND Pre Patient Position Supine -ND Intra Patient Position Standing -ND Post Patient Position Supine -ND Row Name 02/03/25 1641 Positioning and Restraints Pre-Treatment Position in bed -ND Post Treatment Position bed -ND In Bed notified nsg;supine;with nsg -ND User Metcalf (r) = Recorded By, (t) = Taken By, (c) = Cosigned By Initials Name Provider Type ND Amaris Reyes PT Physical Therapist Outcome Measures Row Name 02/03/25 1644 How much help from another person do you currently need... Turning from your back to your side while in flat bed without using bedrails? 3 -ND Moving from lying on back to sitting on the side of a flat bed without bedrails? 3 -ND Moving to and from a bed to a chair (including a wheelchair)? 3 -ND Standing up from a chair using your arms (e.g., wheelchair, bedside chair)? 3 -ND Climbing 3-5 steps with a railing? 2 -ND To walk in hospital room? 3 -ND AM-PAC 6 Clicks Score (PT) 17 -ND Highest Level of Mobility Goal Stand (1 or More Minutes)-5 -ND Row Name 02/03/25 1644 Functional Assessment Outcome Measure Options AM-PAC 6 Clicks Basic Mobility (PT) -ND User Metcalf (r) = Recorded By, (t) = Taken By, (c) = Cosigned By Initials Name Provider Type ND Amaris Reyes PT Physical Therapist Physical Therapy Education Title: PT OT FINISHED YARN EXAMINER Therapies (In Progress) Topic: Physical Therapy (In Progress) Point: Mobility training (Done) Learning Progress Summary Patient Acceptance, E, VU by ND at 02/03/20251643 Point: Home exercise program (Not Started) Learner Progress: Not documented in this visit. Point: Body mechanics (Done) Learning Progress Summary Patient Acceptance, E, VU by ND at 02/03/20251643 Point: Precautions (Done) Learning Progress Summary Patient Acceptance, E, VU by ND at 02/03/20251643 User Metcalf Initials Effective Dates Name Provider Type Discipline MS 07/20/23 - Amaris Reyes PT Physical Therapist PT PT Recommendation and Plan Planned Therapy Interventions (PT): balance training, bed mobility training, gait training, patient/family education, home exercise program, transfer training, postural re-education, ROM (range of motion), stair training, strengthening Outcome Evaluation: PT evaluation completed. Pt ambulates 150' with RWx and min- A with chair followfor safety but is ultimately limited by pain and fatigue. Post-op precautions reviewed with pt and pt requires cueing t/o session to maintain. Pt reports being home alone during days and a recent functional decline due to her back pain. Recommend SNF following d/c pending improvements in pain and overall functional mobility. Time Calculation: PT Evaluation Complexity History, PT Evaluation Complexity: 3 or more personal factors and/or comorbidities Examination of Body Systems (PT Eval Complexity): total of 4 or more elements Clinical Presentation (PT Evaluation Complexity): evolving Clinical Decision Making (PT Evaluation Complexity): moderate complexity Overall Complexity (PT Evaluation Complexity): moderate complexity PT Charges Row Name 02/03/25 1644 Time Calculation Start Time 1535 -ND PT Received On 02/03/25 - PT Goal Re-Cert Due Date 02/13/25 - Untimed Charges PT Eval/Re-eval Minutes 49 -ND Total Minutes Untimed Charges Total Minutes 49 -ND Total Minutes 49 -ND User Metcalf (r) = Recorded By, (t) = Taken By, (c) = Cosigned By Initials Name Provider Type ND Amaris Reyes, PT Physical Therapist Therapy Charges for Today Code Description Service Date Service Provider Modifiers Qty 80193699954 HC PT EVAL MOD COMPLEXITY 4 02/03/2025 Amaris Reyes, PT GP 1 [id number] HC PT THER SUPP EA 15 MIN 02/03/2025 Amaris Reyes, PT GP 3 PT G-Codes Outcome Measure Options: AM-PAC 6 Clicks Basic Mobility (PT) AM-PAC 6 Clicks Score (PT): 17 PT Discharge Summary Anticipated Discharge Disposition (PT): shelter facility Amaris Reyes PT 02/03/2025 documented in this encounter Plan of Treatment Not on file documented as of this encounter Goals Goal Patient Goal Type Associated Problems Recent Progress Patient-Stated? Author Autogenerat ed Goal Care Plan Autogenerated Problem No Shan Huff documented as of this encounter Procedures Procedure Name Priority Date/Time Associated Diagnosis Comments POTASSIUM Routine 02/05/2025 6:59 AM EDT HEMOGLOBIN AND HEMATOCRIT, BLOOD Routine 02/04/2025 6:15 AM EDT BASIC METABOLIC PANEL Routine 02/04/2025 6:15 AM EDT FL C ARM DURING SURGERY Routine 02/03/2025 12:08 PM EDT [place] ARTHRODESIS COMBINED TQ [id number] LUMBAR 02/03/2025 7:22 AM EDT Special Needs DEPUY WITH CEMENT AUGMENTATION, HAIRSPRING CUTTER, VIPIN TABLE, CELL SAVER (CONFIRMED WITH MATILDE GEORGES 01/15), C-ARM, O-ARM STEALTH * TYPE AND SCREEN STAT 02/03/2025 6:46 AM EDT SCANNED EKG 02/03/2025 SCANNED - IMAGING 02/03/2025 SCANNED - LABS 02/03/2025 documented in this encounter Results * Potassium (02/05/2025 6:59 AM EDT) Potassium 3.9 3.5 - 5.2 mmol/L 02/05/2025 8:25 AM EDT [facility] Blood Venipuncture / Unknown 02/05/2025 6:59 AM EDT 02/05/2025 7:51 AM EDT Pavithra Oakes MD LAB BLOOD ORDERABLES Final Result [facility]
[address] [place] [address], * (ABNORMAL) Basic Metabolic Panel (02/04/2025 6:15 AM EDT) Glucose 101(H) 65 - 99 mg/dL 02/04/2025 7:01 AM EDT [facility] BUN 11.2 8.0 - 23.0 mg/dL 02/04/2025 7:01 AM EDT [facility] Creatinine 0.87 0.57 - 1.00 mg/dL 02/04/2025 7:01 AM EDT [facility] Sodium 138 136 - 145 mmol/L 02/04/2025 7:01 AM EDT [facility] Potassium 5.4(H) 3.5 - 5.2 mmol/L 02/04/2025 7:01 AM EDT [facility] Chloride 105 98 - 107 mmol/L 02/04/2025 7:01 AM EDT [facility] CO2 27.0 22.0 - 29.0 mmol/L 02/04/2025 7:01 AM EDT [facility] Calcium 9.5 8.6 - 10.5 mg/dL 02/04/2025 7:01 AM EDT [facility] BUN/Creatinine Ratio 12.9 7.0 - 25.0 02/04/2025 7:01 AM EDT [facility] Anion Gap 6.0 5.0 - 15.0 mmol/L 02/04/2025 7:01 AM EDT [facility] eGFR 68.7 >60.0 mL/min/1.7 3 02/04/2025 7:01 AM EDT [facility] Blood Venipuncture / Unknown 02/04/2025 6:15 AM EDT 02/04/2025 6:34 AM EDT [facility] - 02/04/2025 7:01 AM EDT GFR Categories in Chronic Kidney Disease (CKD) GFR Category GFR (mL/min/1.73) Interpretation G1 90 or greater Normal or high (1) G2 60-89 Mild decrease (1) G3a 45-59 Mild to moderate decrease G3b 30-44 Moderate to severe decrease G4 15-29 Severe decrease G5 14 or less Kidney failure (1)In the absence of evidence of kidney disease, neither GFR category G1 or G2 fulfill the criteria for CKD. eGFR calculation 2020 CKD-EPI creatinine equation, which does not include race as a factor Pavithra Oakes MD LAB BLOOD ORDERABLES Final Result [facility]
[address] [place] [address], * (ABNORMAL) Hemoglobin & Hematocrit, Blood (02/04/2025 6:15 AM EDT) Hemoglobin 9.7(L) 12.0 - 15.9 g/dL 02/04/2025 6:37 AM EDT [facility] Hematocrit 31.1(L) 34.0 - 46.6 % 02/04/2025 6:37 AM EDT [facility] Blood Venipuncture / Unknown 02/04/2025 6:15 AM EDT 02/04/2025 6:33 AM EDT us Vini Peterson MD LAB BLOOD ORDERABLES Final Res ult [facility]
[address] [place] [address], * FL C Arm During Surgery (02/03/2025 12:08 PM EDT) Narrative SYSTEMGENERATED, DOCUMENTATION - 02/03/2025 12:08 PM EDT This procedure was auto-finalized with no dictation required. us Vini Peterson MD IMG FLUOROSCOPY ORDERABLES Fin al Result * Type & Screen (02/03/2025 6:46 AM EDT) ABO Type A 02/03/2025 7:43 AM EDT [facility] RH type Positive 02/03/2025 7:43 AM EDT [facility] Antibody Screen Negative 02/03/2025 7:43 AM EDT [facility] T&S Expiration Date 02/06/2025 11:59:59 PM 02/03/2025 7:43 AM EDT [facility] Blood Line / Unknown 02/03/2025 6: 46 AM EDT 02/03/2025 6:52 AM EDT us Vini Peterson MD BLOOD BANK TEST ORDERABLES Sanchez antonina Result - Final [facility]
[address] [place] [address], * LABS SCANNED (02/03/2025) [facility] LAB BLOOD ORDERABLES Final Re sult * IMAGING SCANNED (02/03/2025) Anatomical Region Laterality Modality Radiographic Carmella ging [facility] IMG DIAGNOSTIC IMAGING ORDERA BLES Final Result * ECG Scan (02/03/2025) [facility] ECG ORDERABLES Final Result documented in this encounter Visit Diagnoses Diagnosis S/P lumbar spinal fusion (revision decompression L4-5, posterior lateral fusion L4-5)- Primary Arthrodesis status S/P lumbar spinal fusion (revision decompression L4-5, posterior lateral fusion L4-5) Arthrodesis status Lumbar stenosis with neurogenic claudication HTN (hypertension) Unspecified essential hypertension GERD (gastroesophageal reflux disease) Esophageal reflux Hyperlipidemia Other and unspecified hyperlipidemia Acute postoperative pain Other acute postoperative pain documented in this encounter Admitting Diagnoses Diagnosis Lumbar stenosis with neurogenic claudication documented in this encounter Administered Medications Inactive Administered Medications - up to 3 most recent administrations Medication Order MAR Action Action Date Dose Rate Site acetaminophen (TYLENOL) 160 MG/5ML oral solution 650 mg 650 mg, Oral, Every 4 Hours PRN, Mild Pain, Starting on 02/03/25 at 1732, If given for fever, use fever parameter: fever greater than 100.4 F Based on patient request - if ordered for moderate or severe pain, provider allows for administration of a medication prescribed for a lower pain scale. Do not exceed 4 grams of acetaminophen in a 24 hr period. Max dose of 2gm for AST/ALT greater than 120 units/L. If given for pain, use the following pain scale: Mild Pain = Pain Score of 1-3, CPOT 1-2 Moderate Pain = Pain Score of 4-6, CPOT 3-4 Severe Pain = Pain Score of 7-10, CPOT 5-8 acetaminophen (TYLENOL) suppository 650 mg 650 mg, Rectal, Every 4 Hours PRN, Mild Pain, Starting on Mon02/03/25 at 1732, If given for fever, use fever parameter: fever greater than 100.4 F Based on patient request - if ordered for moderate or severe pain, provider allows for administration of a medication prescribed for a lower pain scale. Do not exceed 4 grams of acetaminophen in a 24 hr period. Max dose of 2gm for AST/ALT greater than 120 units/L. If given for pain, use the following pain scale: Mild Pain = Pain Score of 1-3, CPOT 1-2 Moderate Pain = Pain Score of 4-6, CPOT 3-4 Severe Pain = Pain Score of 7-10, CPOT 5-8 acetaminophen (TYLENOL) tablet 1,000 mg 1,000 mg, Oral, Once, On Mon02/03/25 at 0555, For 1 dose, If given for fever, use fever parameter: fever greater than 100.4 F Based on patient request - if ordered for moderate or severe pain, provider allows for administration of a medication prescribed for a lower pain scale. Do not exceed 4 grams of acetaminophen in a 24 hr period. Max dose of 2gm for AST/ALT greater than 120 units/L. If given for pain, use the following pain scale: Mild Pain = Pain Score of 1-3, CPOT 1-2 Moderate Pain = Pain Score of 4-6, CPOT 3-4 Severe Pain = Pain Score of 7-10, CPOT 5-8 Given 02/03/2025 6:31 AM EDT 1,000 mg acetaminophen (TYLENOL) tablet 650 mg 650 mg, Oral, Every 4 Hours PRN, Mild Pain, Starting on Mon02/03/25 at 1732, If given for fever, use fever parameter: fever greater than 100.4 F Based on patient request - if ordered for moderate or severe pain, provider allows for administration of a medication prescribed for a lower pain scale. Do not exceed 4 grams of acetaminophen in a 24 hr period. Max dose of 2gm for AST/ALT greater than 120 units/L. If given for pain, use the following pain scale: Mild Pain = Pain Score of 1-3, CPOT 1-2 Moderate Pain = Pain Score of 4-6, CPOT 3-4 Severe Pain = Pain Score of 7-10, CPOT 5-8 Given 02/07/2025 3:18 PM EDT 650 mg Given 02/07/2025 8:05 AM EDT 650 mg Given 02/06/2025 11:36 PM EDT 650 mg bisacodyl (DULCOLAX) EC tablet 5 mg 5 mg, Oral, Daily PRN, Constipation, Use if polyethylene glycol is ineffective, Starting on Mon02/03/25 at 1732, Use if no bowel movement after 12 hours. Swallow whole. Do not crush, split, or chew tablet. Given 02/04/2025 9:35 AM EDT 5 mg bisacodyl (DULCOLAX) suppository 10 mg 10 mg, Rectal, Daily PRN, Constipation, Use if bisacodyl oral is ineffective, Starting on Mon02/03/25 at 1732, Use if no bowel movement after 12 hours. Hold for diarrhea ceFAZolin 2000 mg IVPB in 100 mL NS (MBP) 2,000 mg, Intravenous, Administer over 30 Minutes, Every 8 Hours, First dose on Mon02/03/25 at 1830, For 2 doses, Time first dose from pre-op dose. Caution: Look alike/sound alike drug alert, Indications: Surgical ProphylaxisIndications:Surgical Prophylaxis New Bag 02/04/2025 3:02 AM EDT 2,000 mg New Bag 02/03/2025 6:10 PM EDT 2,000 mg cyclobenzaprine (FLEXERIL) tablet 10 mg 10 mg, Oral, 3 Times Daily PRN, Muscle Spasms, Starting on Mon02/03/25 at 1732 Given 02/06/2025 11:36 PM EDT 10 m g Given 02/04/2025 4:50 PM EDT 10 mg Given 02/04/2025 5:02 AM EDT 10 mg ethyl alcohol 62 % 2 each 2 each (2 Swab), Nasal, Once, On Mon02/03/25 at 0555, For 1 dose, Administer 15-60 minutes prior to surgery following these steps: Clean nostrils with a tissue, apply a 62% ethyl alcohol swab to the right nostril gently rotating the swab for 30 seconds, repeat the process with the 2nd swab in the left nostril. Given 02/03/2025 7:28 AM EDT 2 each famotidine (PEPCID) tablet 20 mg 20 mg, Oral, Once, On Mon02/03/25 at 0555, For 1 dose Given 02/03/2025 6:31 AM EDT 20 mg fentaNYL citrate (PF) (SUBLIMAZE) 50 mcg/mL injection - ADS Override Pull Starting on Mon02/03/25 at 1356, For 1 dose, Created by cabinet override If given for pain, use the following pain scale: Mild Pain = Pain Score of 1-3, CPOT 1-2 Moderate Pain = Pain Score of 4-6, CPOT 3-4 Severe Pain = Pain Score of 7-10, CPOT 5-8 fentaNYL citrate (PF) (SUBLIMAZE) injection 50 mcg 50 mcg, Intravenous, Every 5 Minutes PRN, Moderate Pain, Starting on Mon02/03/25 at 1235, For 5 doses, If given for pain, use the following pain scale: Mild Pain = Pain Score of 1-3, CPOT 1-2 Moderate Pain = Pain Score of 4-6, CPOT 3-4 Severe Pain = Pain Score of 7-10, CPOT 5-8 Given 02/03/2025 1:57 PM EDT 50 mcg gabapentin (NEURONTIN) capsule 300 mg 300 mg, Oral, 2 Times Daily, First dose on Mon02/03/25 at 2100, (JANY) Given 02/07/2025 8:05 AM EDT 300 mg Given 02/06/2025 8:48 PM EDT 300 mg Given 02/06/2025 8:28 AM EDT 300 mg HYDROmorphone (DILAUDID) 1 MG/ML injection - ADS Override Pull Starting on Mon02/03/25 at 1320, For 1 dose, Created by cabinet override (JANY) Caution: Look alike/sound alike drug alert If given for pain, use the following pain scale: Mild Pain = Pain Score of 1-3, CPOT 1-2 Moderate Pain = Pain Score of 4-6, CPOT 3-4 Severe Pain = Pain Score of 7-10, CPOT 5-8 HYDROmorphone (DILAUDID) injection 0.25 mg 0.25 mg, Intravenous, Every 4 Hours PRN, Moderate Pain, Starting on Mon02/03/25 at 1732, For 5 days, Based on patient request - if ordered for moderate or severe pain, provider allows for administration of a medication prescribed for a lower pain scale. If given for pain, use the following pain scale: Mild Pain = Pain Score of 1-3, CPOT 1-2 Moderate Pain = Pain Score of 4-6, CPOT 3-4 Severe Pain = Pain Score of 7-10, CPOT 5-8 Given 02/05/2025 1:53 AM EDT 0.25 mg Given 02/04/2025 8:10 PM EDT 0.25 mg Given 02/04/2025 1:11 AM EDT 0.25 mg HYDROmorphone (DILAUDID) injection 0.5 mg 0.5 mg, Intravenous, Every 5 Minutes PRN, Severe Pain, Starting on Mon02/03/25 at 1235, For 4 doses, Maximum total dose of hydromorphone is 2 mg. If given for pain, use the following pain scale: Mild Pain = Pain Score of 1-3, CPOT 1-2 Moderate Pain = Pain Score of 4-6, CPOT 3-4 Severe Pain = Pain Score of 7-10, CPOT 5-8 Given 02/03/2025 1:35 PM EDT 0.5 mg Given 02/03/2025 1:21 PM EDT 0.5 mg labetalol (NORMODYNE,TRANDATE) injection 10 mg 10 mg, Intravenous, Every 4 Hours PRN, High Blood Pressure, SBP over 170 or DBP over 105, Starting on Mon02/03/25 at 1735, For 3 doses, As needed for SBP greater than 170 or DBP greater than 105 Give IV Push over 2 minutes. lactated ringers infusion 9 mL/hr, Intravenous, Continuous, Starting on Mon02/03/25 at 0607, For 1 day, May switch to NS IV at O if renal / if indicated New Bag 02/03/2025 10:55 AM EDT New Bag 02/03/2025 8:48 AM EDT Currently Infusing 02/03/2025 7:37 AM EDT 9 mL/ hr lidocaine PF 1% (XYLOCAINE) injection 0.5 mL 0.5 mL, Injection, Once As Needed, IV Start, Starting on Mon02/03/25 at 0553, For 1 dose Given 02/03/2025 6:31 AM EDT 0 .5 mL ondansetron ODT (ZOFRAN-ODT) disintegrating tablet 4 mg 4 mg, Translingual, Every 6 Hours PRN, Nausea, Vomiting, Starting on Mon02/05/25 at 1100, If multiple N/V medications ordered, use in the following order: Ondansetron, Prochlorperazine, Promethazine. Use PO unless patient refuses or patient unable to swallow. Place on tongue and allow to dissolve. oxyCODONE (ROXICODONE) 5 MG immediate release tablet - ADS Override Pull Starting on Mon02/03/25 at 1624, For 1 dose, Created by isadora cuba (JANY) If given for pain, use the following pain scale: Mild Pain = Pain Score of 1-3, CPOT 1-2 Moderate Pain = Pain Score of 4-6, CPOT 3-4 Severe Pain = Pain Score of 7-10, CPOT 5-8 oxyCODONE (ROXICODONE) immediate release tablet 10 mg 10 mg, Oral, Every 6 Hours PRN, Severe Pain, Starting on Mon02/03/25 at 1732, For 5 days, Based on patient request - if ordered for moderate or severe pain, provider allows for administration of a medication prescribed for a lower pain scale. If given for pain, use the following pain scale: Mild Pain = Pain Score of 1-3, CPOT 1-2 Moderate Pain = Pain Score of 4-6, CPOT 3-4 Severe Pain = Pain Score of 7-10, CPOT 5-8 Given 02/05/2025 8:03 AM EDT 10 mg Given 02/04/2025 11:35 PM EDT 10 mg Given 02/04/2025 4:50 PM EDT 10 mg oxyCODONE (ROXICODONE) immediate release tablet 10 mg 10 mg, Oral, Every 4 Hours PRN, Severe Pain, Starting on Mon02/05/25 at 1101, For 5 days, Based on patient request - if ordered for moderate or severe pain, provider allows for administration of a medication prescribed for a lower pain scale. If given for pain, use the following pain scale: Mild Pain = Pain Score of 1-3, CPOT 1-2 Moderate Pain = Pain Score of 4-6, CPOT 3-4 Severe Pain = Pain Score of 7-10, CPOT 5-8 Given 02/07/2025 7:20 AM EDT 10 mg Given 02/07/2025 1:12 AM EDT 10 mg Given 02/06/2025 8:47 PM EDT 10 mg oxyCODONE (ROXICODONE) immediate release tablet 5 mg 5 mg, Oral, Every 4 Hours PRN, Moderate Pain, Starting on Mon02/03/25 at 1623, For 5 days, Based on patient request - if ordered for moderate or severe pain, provider allows for administration of a medication prescribed for a lower pain scale. (JANY) If given for pain, use the following pain scale: Mild Pain = Pain Score of 1-3, CPOT 1-2 Moderate Pain = Pain Score of 4-6, CPOT 3-4 Severe Pain = Pain Score of 7-10, CPOT 5-8 Given 02/03/2025 4:25 PM EDT 5 mg oxyCODONE (ROXICODONE) immediate release tablet 5 mg 5 mg, Oral, Every 4 Hours PRN, Moderate Pain, Starting on Mon02/05/25 at 1101, For 5 days, Based on patient request - if ordered for moderate or severe pain, provider allows for administration of a medication prescribed for a lower pain scale. (JANY) If given for pain, use the following pain scale: Mild Pain = Pain Score of 1-3, CPOT 1-2 Moderate Pain = Pain Score of 4-6, CPOT 3-4 Severe Pain = Pain Score of 7-10, CPOT 5-8 Given 02/07/2025 3:20 PM EDT 5 mg pantoprazole (PROTONIX) EC tablet 40 mg 40 mg, Oral, 2 Times Daily Before Meals, First dose on Mon02/03/25 at 1830, Swallow whole; do not crush, split, or chew. Given 02/07/2025 8:05 AM EDT 40 mg Given 02/06/2025 4:52 PM EDT 40 mg Given 02/06/2025 8:28 AM EDT 40 mg polyethylene glycol (MIRALAX) packet 17 g 17 g, Oral, Daily PRN, Constipation, Use if senna-docusate is ineffective, Starting on Mon02/03/25 at 1732, Use if no bowel movement after 12 hours. Mix in 6-8 ounces of water. Use 4-8 ounces of water, tea, or juice for each 17 gram dose. Given 02/06/2025 7:39 AM EDT 17 g pravastatin (PRAVACHOL) tablet 40 mg 40 mg, Oral, Daily, First dose on Mon02/03/25 at 2100, Avoid grapefruit juice. Given 02/07/2025 8:05 AM EDT 40 mg Given 02/06/2025 8:28 AM EDT 40 mg Given 02/05/2025 8:03 AM EDT 40 mg pregabalin (LYRICA) capsule 75 mg 75 mg, Oral, Once, On Mon02/03/25 at 0555, For 1 dose, {JANY} Given 02/03/2025 6:31 AM EDT 75 mg sennosides-docusate (PERICOLACE) 8.6-50 MG per tablet 2 tablet 2 tablet, Oral, 2 Times Daily PRN, Constipation, Starting on Mon02/03/25 at 1732, Start bowel management regimen if patient has not had a bowel movement after 12 hours. sodium chloride 0.9 % flush 3 mL 3 mL, Intravenous, Every 12 Hours Scheduled, First dose on Mon02/03/25 at 2100 Given 02/05/2025 8:03 AM EDT 3 mL Given 02/04/2025 9:35 AM EDT 3 mL Given 02/03/2025 8:34 PM EDT 3 mL sodium chloride 0.9 % infusion 100 mL/hr, Intravenous, Continuous, Starting on Mon02/04/25 at 1700, For 5 hours New Bag 02/04/2025 6:42 PM EDT 100 mL/hr 100 mL/hr sodium chloride 0.9 % with KCl 20 mEq/L infusion 100 mL/hr, Intravenous, Continuous, Starting on Mon02/03/25 at 1830, For 2 days New Bag 02/04/2025 4:57 AM EDT 100 mL/hr 100 mL/hr New Bag 02/03/2025 6:15 PM EDT 100 mL/hr 100 mL/hr New Bag 02/03/2025 6:11 PM EDT 100 mL/hr 100 mL/hr documented in this encounter Active and Recently Administered Medications Times are shown in EDT. Scheduled Medication Order 02/05/2025 02/06/2025 02/07/2025 gabapentin (NEURONTIN) capsule 300 mg 300 mg, Oral, 2 Times Daily, First dose on Mon02/03/25 at 2100, (JANY) 08 (Given - Provider: Loren Floyd RN)2023 (Given - Provider: Essence Hernandez, ANN) 08 (Given - Provider: Loren Floyd RN)2047 (Given - Provider: Essence Hernandez RN) 08 (Given - Provider: Ivana Espinoza, ANN) pantoprazole (PROTONIX) EC tablet 40 mg 40 mg, Oral, 2 Times Daily Before Meals, First dose on Mon02/03/25 at 1830, Swallow whole; do not crush, split, or chew. 08 (Given - Provider: Loren Floyd RN)165 (Given - Provider: Loren Floyd RN) 08 (Given - Provider: Loren Floyd RN)165 (Given - Provider: Loren Floyd RN) 08 (Given - Provider: Ivana Espinoza, ANN) pravastatin (PRAVACHOL) tablet 40 mg 40 mg, Oral, Daily, First dose on Mon02/03/25 at 2100, Avoid grapefruit juice. 08 (Given - Provider: Loren Floyd RN) 08 (Given - Provider: Loren Floyd RN) 08 (Given - Provider: Ivana Espinoza, ANN) sodium chloride 0.9 % flush 3 mL (CANCELED) 3 mL, Intravenous, Every 12 Hours Scheduled, First dose on Mon02/03/25 at 2100 08 (Given - Provider: Loren Floyd RN) PRN Medication Order 02/05/2025 02/06/2025 02/07/2025 acetaminophen (TYLENOL) 160 MG/5ML oral solution 650 mg(Linked Group 1) 650 mg, Oral, Every 4 Hours PRN, Mild Pain, Starting on Mon02/03/25 at 1732, If given for fever, use fever parameter: fever greater than 100.4 F Based on patient request - if ordered for moderate or severe pain, provider allows for administration of a medication prescribed for a lower pain scale. Do not exceed 4 grams of acetaminophen in a 24 hr period. Max dose of 2gm for AST/ALT greater than 120 units/L. If given for pain, use the following pain scale: Mild Pain = Pain Score of 1-3, CPOT 1-2 Moderate Pain = Pain Score of 4-6, CPOT 3-4 Severe Pain = Pain Score of 7-10, CPOT 5-8 2336 (Not Given: See Alt - Provider: Essence Hernandez RN) 0805 (Not Given: See Alt - Provider: Ivana Espinoza RN)1518 (Not Given: See Alt - Provider: Ivana Espinoza RN) acetaminophen (TYLENOL) suppository 650 mg(Linked Group 1) 650 mg, Rectal, Every 4 Hours PRN, Mild Pain, Starting on Mon02/03/25 at 1732, If given for fever, use fever parameter: fever greater than 100.4 F Based on patient request - if ordered for moderate or severe pain, provider allows for administration of a medication prescribed for a lower pain scale. Do not exceed 4 grams of acetaminophen in a 24 hr period. Max dose of 2gm for AST/ALT greater than 120 units/L. If given for pain, use the following pain scale: Mild Pain = Pain Score of 1-3, CPOT 1-2 Moderate Pain = Pain Score of 4-6, CPOT 3-4 Severe Pain = Pain Score of 7-10, CPOT 5-8 2336 (Not Given: See Alt - Provider: Essence Hernandez RN) 0805 (Not Given: See Alt - Provider: Ivana Espinoza RN)1518 (Not Given: See Alt - Provider: Ivana Espinoza RN) acetaminophen (TYLENOL) tablet 650 mg(Linked Group 1) 650 mg, Oral, Every 4 Hours PRN, Mild Pain, Starting on Mon02/03/25 at 1732, If given for fever, use fever parameter: fever greater than 100.4 F Based on patient request - if ordered for moderate or severe pain, provider allows for administration of a medication prescribed for a lower pain scale. Do not exceed 4 grams of acetaminophen in a 24 hr period. Max dose of 2gm for AST/ALT greater than 120 units/L. If given for pain, use the following pain scale: Mild Pain = Pain Score of 1-3, CPOT 1-2 Moderate Pain = Pain Score of 4-6, CPOT 3-4 Severe Pain = Pain Score of 7-10, CPOT 5-8 2336 (Given - Provider: Essence Hernandez RN) 0805 (Given - Provider: Ivana Espinoza RN)1518 (Given - Provider: Ivana Espinoza RN) bisacodyl (DULCOLAX) EC tablet 5 mg(Linked Group 2) 5 mg, Oral, Daily PRN, Constipation, Use if polyethylene glycol is ineffective, Starting on Mon02/03/25 at 1732, Use if no bowel movement after 12 hours. Swallow whole. Do not crush, split, or chew tablet. bisacodyl (DULCOLAX) suppository 10 mg(Linked Group 2) 10 mg, Rectal, Daily PRN, Constipation, Use if bisacodyl oral is ineffective, Starting on Mon02/03/25 at 1732, Use if no bowel movement after 12 hours. Hold for diarrhea cyclobenzaprine (FLEXERIL) tablet 10 mg 10 mg, Oral, 3 Times Daily PRN, Muscle Spasms, Starting on Mon02/03/25 at 1732 2336 (Given - Provider: Essence Hernandez RN) HYDROmorphone (DILAUDID) injection 0.25 mg (CANCELED)(Linked Group 3) 0.25 mg, Intravenous, Every 4 Hours PRN, Moderate Pain, Starting on Mon02/03/25 at 1732, For 5 days, Based on patient request - if ordered for moderate or severe pain, provider allows for administration of a medication prescribed for a lower pain scale. If given for pain, use the following pain scale: Mild Pain = Pain Score of 1-3, CPOT 1-2 Moderate Pain = Pain Score of 4-6, CPOT 3-4 Severe Pain = Pain Score of 7-10, CPOT 5-8 0153 (Given - Provider: Corie Mast RN) labetalol (NORMODYNE,TRANDATE) injection 10 mg 10 mg, Intravenous, Every 4 Hours PRN, High Blood Pressure, SBP over 170 or DBP over 105, Starting on Mon02/03/25 at 1735, For 3 doses, As needed for SBP greater than 170 or DBP greater than 105 Give IV Push over 2 minutes. ondansetron ODT (ZOFRAN-ODT) disintegrating tablet 4 mg 4 mg, Translingual, Every 6 Hours PRN, Nausea, Vomiting, Starting on Mon02/05/25 at 1100, If multiple N/V medications ordered, use in the following order: Ondansetron, Prochlorperazine, Promethazine. Use PO unless patient refuses or patient unable to swallow. Place on tongue and allow to dissolve. oxyCODONE (ROXICODONE) immediate release tablet 10 mg (CANCELED) 10 mg, Oral, Every 6 Hours PRN, Severe Pain, Starting on Mon02/03/25 at 1732, For 5 days, Based on patient request - if ordered for moderate or severe pain, provider allows for administration of a medication prescribed for a lower pain scale. If given for pain, use the following pain scale: Mild Pain = Pain Score of 1-3, CPOT 1-2 Moderate Pain = Pain Score of 4-6, CPOT 3-4 Severe Pain = Pain Score of 7-10, CPOT 5-8 0803 (Given - Provider: Loren Floyd RN) oxyCODONE (ROXICODONE) immediate release tablet 10 mg(Linked Group 4) 10 mg, Oral, Every 4 Hours PRN, Severe Pain, Starting on Mon02/05/25 at 1101, For 5 days, Based on patient request - if ordered for moderate or severe pain, provider allows for administration of a medication prescribed for a lower pain scale. If given for pain, use the following pain scale: Mild Pain = Pain Score of 1-3, CPOT 1-2 Moderate Pain = Pain Score of 4-6, CPOT 3-4 Severe Pain = Pain Score of 7-10, CPOT 5-8 1338 (Given - Provider: Loren Floyd RN)2024 (Given - Provider: Essence Hernandez RN) 0132 (Given - Provider: Essence Hernandez RN)0828 (Given - Provider: Loren Floyd RN)1304 (Given - Provider: Loren Floyd RN)2047 (Given - Provider: Essence Hernandez RN) 0112 (Given - Provider: Essence Hernandez RN)0720 (Given - Provider: Essence Hernandez RN)1520 (Not Given: See Alt - Provider: Ivana Espinoza, ANN) oxyCODONE (ROXICODONE) immediate release tablet 5 mg(Linked Group 4) 5 mg, Oral, Every 4 Hours PRN, Moderate Pain, Starting on Mon02/05/25 at 1101, For 5 days, Based on patient request - if ordered for moderate or severe pain, provider allows for administration of a medication prescribed for a lower pain scale. (JANY) If given for pain, use the following pain scale: Mild Pain = Pain Score of 1-3, CPOT 1-2 Moderate Pain = Pain Score of 4-6, CPOT 3-4 Severe Pain = Pain Score of 7-10, CPOT 5-8 1338 (Not Given: See Alt - Provider: Loren Floyd RN)2024 (Not Given: See Alt - Provider: Essence Hernandez RN) 0132 (Not Given: See Alt - Provider: Essence Hernandez RN)0828 (Not Given: See Alt - Provider: Loren Floyd RN)1304 (Not Given: See Alt - Provider: Loren Floyd RN)2047 (Not Given: See Alt - Provider: Essence Hernandez RN) 0112 (Not Given: See Alt - Provider: Essence Hernandez RN)0720 (Not Given: See Alt - Provider: Essence Hernandez RN)1520 (Given - Provider: Ivana Espinoza RN) polyethylene glycol (MIRALAX) packet 17 g(Linked Group 2) 17 g, Oral, Daily PRN, Constipation, Use if senna-docusate is ineffective, Starting on Mon02/03/25 at 1732, Use if no bowel movement after 12 hours. Mix in 6-8 ounces of water. Use 4-8 ounces of water, tea, or juice for each 17 gram dose. 0739 (Given - Provider: Loren Floyd RN) sennosides-docusate (PERICOLACE) 8.6-50 MG per tablet 2 tablet(Linked Group 2) 2 tablet, Oral, 2 Times Daily PRN, Constipation, Starting on Mon02/03/25 at 1732, Start bowel management regimen if patient has not had a bowel movement after 12 hours. Linked Groups Order Group 1: acetaminophen (TYLENOL) tablet 650 mgJump to med 650 mg, Oral, Every 4 Hours PRN, Mild Pain, Starting on Mon02/03/25 at 1732, If given for fever, use fever parameter: fever greater than 100.4 F Based on patient request - if ordered for moderate or severe pain, provider allows for administration of a medication prescribed for a lower pain scale. Do not exceed 4 grams of acetaminophen in a 24 hr period. Max dose of 2gm for AST/ALT greater than 120 units/L. If given for pain, use the following pain scale: Mild Pain = Pain Score of 1-3, CPOT 1-2 Moderate Pain = Pain Score of 4-6, CPOT 3-4 Severe Pain = Pain Score of 7-10, CPOT 5-8 Or acetaminophen (TYLENOL) 160 MG/5ML oral solution 650 mgJump to med 650 mg, Oral, Every 4 Hours PRN, Mild Pain, Starting on Mon02/03/25 at 1732, If given for fever, use fever parameter: fever greater than 100.4 F Based on patient request - if ordered for moderate or severe pain, provider allows for administration of a medication prescribed for a lower pain scale. Do not exceed 4 grams of acetaminophen in a 24 hr period. Max dose of 2gm for AST/ALT greater than 120 units/L. If given for pain, use the following pain scale: Mild Pain = Pain Score of 1-3, CPOT 1-2 Moderate Pain = Pain Score of 4-6, CPOT 3-4 Severe Pain = Pain Score of 7-10, CPOT 5-8 Or acetaminophen (TYLENOL) suppository 650 mgJump to med 650 mg, Rectal, Every 4 Hours PRN, Mild Pain, Starting on Mon02/03/25 at 1732, If given for fever, use fever parameter: fever greater than 100.4 F Based on patient request - if ordered for moderate or severe pain, provider allows for administration of a medication prescribed for a lower pain scale. Do not exceed 4 grams of acetaminophen in a 24 hr period. Max dose of 2gm for AST/ALT greater than 120 units/L. If given for pain, use the following pain scale: Mild Pain = Pain Score of 1-3, CPOT 1-2 Moderate Pain = Pain Score of 4-6, CPOT 3-4 Severe Pain = Pain Score of 7-10, CPOT 5-8 Group 2: sennosides-docusate (PERICOLACE) 8.6-50 MG per tablet 2 tabletJump to med 2 tablet, Oral, 2 Times Daily PRN, Constipation, Starting on Mon02/03/25 at 1732, Start bowel management regimen if patient has not had a bowel movement after 12 hours. And polyethylene glycol (MIRALAX) packet 17 gJump to med 17 g, Oral, Daily PRN, Constipation, Use if senna-docusate is ineffective, Starting on Mon02/03/25 at 1732, Use if no bowel movement after 12 hours. Mix in 6-8 ounces of water. Use 4-8 ounces of water, tea, or juice for each 17 gram dose. And bisacodyl (DULCOLAX) EC tablet 5 mgJump to med 5 mg, Oral, Daily PRN, Constipation, Use if polyethylene glycol is ineffective, Starting on Mon02/03/25 at 1732, Use if no bowel movement after 12 hours. Swallow whole. Do not crush, split, or chew tablet. And bisacodyl (DULCOLAX) suppository 10 mgJump to med 10 mg, Rectal, Daily PRN, Constipation, Use if bisacodyl oral is ineffective, Starting on Mon02/03/25 at 1732, Use if no bowel movement after 12 hours. Hold for diarrhea Group 3: HYDROmorphone (DILAUDID) injection 0.25 mg (CANCELED)Jump to med 0.25 mg, Intravenous, Every 4 Hours PRN, Moderate Pain, Starting on Mon02/03/25 at 1732, For 5 days, Based on patient request - if ordered for moderate or severe pain, provider allows for administration of a medication prescribed for a lower pain scale. If given for pain, use the following pain scale: Mild Pain = Pain Score of 1-3, CPOT 1-2 Moderate Pain = Pain Score of 4-6, CPOT 3-4 Severe Pain = Pain Score of 7- 10, CPOT 5-8 And naloxone (NARCAN) injection 0.4 mg (CANCELED) 0.4 mg, Intravenous, Every 5 Minutes PRN, Respiratory Depression, Starting on Mon02/03/25 at 1732, If respiratory rate is less than 8 breaths/minute or patient is difficult to arouse stop any narcotics and contact physician. Administer slow IV push. Repeat as ordered until patient's respiratory rate is greater than 12 breaths/minute. Group 4: oxyCODONE (ROXICODONE) immediate release tablet 5 mgJump to med 5 mg, Oral, Every 4 Hours PRN, Moderate Pain, Starting on Mon02/05/25 at 1101, For 5 days, Based on patient request - if ordered for moderate or severe pain, provider allows for administration of a medication prescribed for a lower pain scale. (JANY) If given for pain, use the following pain scale: Mild Pain = Pain Score of 1-3, CPOT 1-2 Moderate Pain = Pain Score of 4-6, CPOT 3-4 Severe Pain = Pain Score of 7-10, CPOT 5-8 Or oxyCODONE (ROXICODONE) immediate release tablet 10 mgJump to med 10 mg, Oral, Every 4 Hours PRN, Severe Pain, Starting on Mon02/05/25 at 1101, For 5 days, Based on patient request - if ordered for moderate or severe pain, provider allows for administration of a medication prescribed for a lower pain scale. 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
--- OUTSIDE RECORDS SUMMARY | 2025-02-03 07:15 | XMS_ITS | Encounter Summary ---
Author Organization [facility] Address [address] [place] [address] Care Team Providers Care Shoulder Sawyer Name Role Phone Placido Mercado MD Primary Care Provider [phone] Reason for Visit * Auth/Cert Specialty Diagnoses / Procedures Referred By Contac t Referred To Contact Procedures [place] ARTHRODESIS COMBINED TQ [id number] LUMBAR L 4-5 REVISION DECOMPRESSION WITH REVISED FUSION WITH PEDICLE SCREWS, CEMENT AUGMENTATION AND POSSIBLE EXTENSION OF FUSION Referral ID Status Reason Start Date Expiration Date Visits Re quested Visits Authorized [id number] 1 1 Encounter Details Date Type Department Care Team (Late st Contact Info) Description 02/03/2025 7:15 AM EDT - 02/03/2025 12:04 PM EDT Surgery [facility] OR [address] [place] [address] Vini Peterson MD [address] [facility] [address] [place] [address] REVISION DECOMPRESSION WITH REVISED FUSION WITH PEDICLE SCREWS WITH CEMENT AUGMENTATION, AND HARDWARE REVISION L4-5 [81885 (CPT )] Social History Tobacco Use Types Packs/Day Years Used Date Smoking Tobacco: Former Smokeless Tobacco: Never Alcohol Use Standard Drinks/Week Comments Never 0 (1 standard drink = 0.6 oz pur e alcohol) [facility] Utilities Answer Date Recorded In the past 12 months has [employer] electric, gas, oil, or water company threatened [...] care, and heating? Not very hard 02/04/2025 [facility] - Occupational Stress [...] GED or equivalent No 02/04/2025 Preferred Language Ghanaian 02/04/2025 PHQ-2 Answer Date Recorded Patient Health Questionnaire-2 Score 0 02/04/2025 Comments No Sex and Gender Information Value Date Recorded Sex Assigned at Not on file Legal Sex Female 2:30 PM EDT Gender Identity Not on file Sexual Orientation Not on file documented as of this encounter Last Filed Vital Signs Vital Sign Reading Time Taken Comments Blood Pressure 111/83 02/03/2025 6:18 AM EDT Pulse 74 02/03/2025 6:18 AM EDT Temperature 36.6 C (97.9 F) 02/03/2025 6:18 AM EDT Respiratory Rate 16 02/03/2025 6:18 AM EDT Oxygen Saturation 97% 02/03/2025 6:18 AM EDT Inhaled Oxygen Concentration - - Weight 77.1 kg (170 lb) 02/03/2025 6:18 AM EDT Height 160 cm (5' 3 ) 02/03/2025 6:18 AM EDT Body Mass Index 30.11 02/03/2025 6:18 AM EDT documented in this encounter Functional Status * Question Answer Date of Assessment Author 1. Wish to be (Past 1 Month) No 025 6:30 AM EDT Jes Noriega, RN 2. Non-Specific Active Suici delfino Thoughts (Past 1 Month) No 02/03/2025 6:30 AM EDT Aleah Noriega RN * Calculated C-SSRS Risk Score (Lifetime/Recent) Answer Date of Assessment Author No Risk Indicated 02/03/2025 6:30 AM EDT Jes Noriega RN * Nelson Suicide Severity Rating Scale (Screener/Recent Self-Report) Question Answer Date of Assessment Author 6. Suicidal Behavior (Lifetime) No 6:30 AM EDT Jes Noriega RN documented as of this encounter Discharge Summaries [...] Levels Completed:1 Level Surgeon: Vini Peterson MD Basket Bottom Machine Operator: Harman Kirk PA-C to assist with retraction, [...] images and reports. Physical therapy: Amaris Reyes, FERNANDO Physical Therapist Specialty: Physical Therapy Plan of [...] best functional outcome. Anticipated Discharge Disposition (PT): alf facility Discharge Assessment: Visit Vitals BP 136/84 [...] his orders Discharge took over 30 min Pavithra Oakes MD 02/07/25 10:18 EDT * Loreta He - 02/05/2025 3:32 PM EDT Images from the original note were not included. Gladys Mendes (79 y.o. Female) Date of 1945 Social Security Number [id number] [place] [address] [employer] [facility] Marital Status Single Admission Date 02/03/2025 Admission Type Elective Admitting Provider Vini Peterson MD Attending Provider Vini Peterson MD Department, Room/Bed [facility] 3G, S362/1 Discharge Date Discharge Disposition Discharge Destination [...] HU[employer] MEDICARE REPLACEMENT HU[employer] MEDICARE ADVANTAGE PPO [id number] Payor Plan Address Payor Plan Phone Number Payor Plan Fax Number Effective Dates [address] [address] 09/04/2024 - None Entered [facility] [id number] Subscriber Name Subscriber Date Member ID GLADYS MENDES 1945 [id number] Emergency 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 02/02/2025 Evening Coenzyme V88-Gxahpry E (QUNOL ULTRA COQ10 PO) Take 100 [...] GERD (gastroesophageal reflux disease) History of transfusion [facility], no reaction Hyperlipidemia Hypertension Past Surgical History: Procedure Laterality Date BREAST BIOPSY Right multiple COLONOSCOPY HEMORRHOIDECTOMY LUMBAR DISCECTOMY FUSION INSTRUMENTATION N/A 05/16/2022 Procedure: LUMBAR DECOMPRESSION WITH FUSION INSTRUMENTATION WITH PEDICLE SCREWS, CAGE AND ALLOGRAFTL4-5; Surgeon: Vini Peterson MD; Location: [facility]; Service: Orthopedic Spine; Laterality: N/A; MASTOIDECTOMY Left [...] -GERD: Resume PPI. Formulary substitution when indicated. Dragon disclaimer: Part of this encounter note is an electronic video production engineer/translation of spoken language to printed text. The electronic translation of spoken language may permit erroneous, or at times, nonsensicalwords or phrases to be inadvertently transcribed; Although I have reviewed the note for such errors, some may still exist. Pavithra Oakes MD 02/03/25 17:34 EDT 1311 Vini Peterson MD at 02/03/25 0650 Pre-Op H&P Gladys Mendes [id number] 1945 Chief complaint: Back pain Subjective: Patient [...] by mouth Every Night. 02/02/2025 Evening Coenzyme F15-Pkdfdwm E (QUNOL ULTRA COQ10 PO) Take 100 [...] GERD (gastroesophageal reflux disease) History of transfusion [facility], no reaction Hyperlipidemia Hypertension PSH: Past Surgical History: Procedure Laterality Date BREAST BIOPSY Right multiple COLONOSCOPY HEMORRHOIDECTOMY LUMBAR DISCECTOMY FUSION INSTRUMENTATION N/A 05/16/2022 Procedure: LUMBAR DECOMPRESSION WITH FUSION INSTRUMENTATION WITH PEDICLE SCREWS, CAGE AND ALLOGRAFTL4-5; Surgeon: Vini Peterson MD; Location: [facility]; Service: Orthopedic Spine; Laterality: N/A; MASTOIDECTOMY Left [...] FUSION Thuy Robertson APRN 02/03/2025 06:50 EDT 0717 Physician Progress Notes (most recent note) Thuy Robertson APRN at 02/05/25 1102 IM progress note Gladys Mendes [id number] 1945 LOS: 2 days Attending: Vini Peterson [...] Version 1 of 1 Patient Name: Gladys Mnedes : 1945 Today's Date: 02/05/2025 Admit Date: [...] GERD (gastroesophageal reflux disease) History of transfusion [facility], no reaction Hyperlipidemia Hypertension Past Surgical History: Procedure Laterality Date BREAST BIOPSY Right multiple COLONOSCOPY HEMORRHOIDECTOMY LUMBAR DISCECTOMY FUSION INSTRUMENTATION N/A 05/16/2022 Procedure: LUMBAR DECOMPRESSION WITH FUSION INSTRUMENTATION WITH PEDICLE SCREWS, CAGE AND ALLOGRAFTL4-5; Surgeon: Vini Peterson MD; Location: [facility]; Service: Orthopedic Spine; Laterality: N/A; LUMBAR DISCECTOMY FUSION INSTRUMENTATION N/A 02/03/2025 Procedure: REVISION DECOMPRESSION WITH REVISED FUSION WITH PEDICLE SCREWS WITH CEMENT AUGMENTATION,AND HARDWARE REVISION L4-5; Surgeon: Vini Peterson MD; Location: [facility]; Service: Orthopedic Spine; Laterality: N/A; MASTOIDECTOMY Left [...] Row Name 02/05/25 1010 Sit-Stand Transfer Sit-Stand [place] (Transfers) contact guard;nonverbal cues (demo/gesture);verbal cues -ND Assistive Device (Sit-Stand Transfers) walker, front-wheeled -ND Comment, (Sit-Stand Transfer) x1 from chair, x1 from toilet. Increased time for upright posture dueto pain. -ND Row Name 02/05/25 1010 Gait/Stairs (Locomotion) [place] Level (Gait) minimum assist (75% patient effort);verbal [...] Type ND Amaris Reyes, PT Physical Therapist Outcome Measures Row Name 02/05/25 [...] Therapist Physical Therapy Education Title: PT OT BUSINESS PROGRAMMER Therapies (In Progress) Topic: Physical Therapy (Done) [...] PT Received On 02/05/25 -ND Timed Charges 01062 - PT Therapeutic Exercise Minutes 10 -ND 11059 - Gait Training Minutes 15 -ND 00182 - PT Therapeutic Activity Minutes 15 -ND Total Minutes Timed Charges Total Minutes 40 -ND Total Minutes 40 -ND User Metcalf (r) = Recorded By, (t) = Taken By, (c) = Cosigned By Initials Name Provider Type ND Amaris Reyes, PT Physical Therapist Therapy Charges for Today Code Description Service Date Service Provider Modifiers Qty 51321363302 HC GAIT TRAINING EA 15 MIN 02/04/2025 Amaris Reyes, PT GP 1 56558449267 HC PT THERAPEUTIC ACT EA 15 MIN 02/04/2025 Amaris Reyes, PT GP 1 27213880130 HC PT THER PROC EA 15 MIN 02/05/2025 Amaris Reyes, PT GP 1 08956778214 HC GAIT TRAINING EA 15 MIN 02/05/2025 Amaris Reyes, PT GP 1 04800781779 HC PT THERAPEUTIC ACT EA 15 MIN 02/05/2025 Amaris Reyes, PT GP 1 PT G-Codes Outcome Measure Options: AM-PAC 6 Clicks Basic Mobility (PT) AM-PAC 6 Clicks Score (PT): 17 AM-PAC 6 Clicks Score (OT): 20 PT Discharge Summary Anticipated Discharge Disposition (PT): alf facility Amaris Reyes PT 02/05/2025 1025 Occupational Therapy Notes (most [...] GERD (gastroesophageal reflux disease) History of transfusion [facility], no reaction Hyperlipidemia Hypertension Past Surgical History: Procedure Laterality Date BREAST BIOPSY Right multiple COLONOSCOPY HEMORRHOIDECTOMY LUMBAR DISCECTOMY FUSION INSTRUMENTATION N/A 05/16/2022 Procedure: LUMBAR DECOMPRESSION WITH FUSION INSTRUMENTATION WITH PEDICLE SCREWS, CAGE AND ALLOGRAFTL4-5; Surgeon: Vini Peterson MD; [facility]; Service: Orthopedic Spine; Laterality: N/A; LUMBAR DISCECTOMY FUSION INSTRUMENTATION N/A 02/03/2025 Procedure: REVISION DECOMPRESSION WITH REVISED FUSION WITH PEDICLE SCREWS WITH CEMENT AUGMENTATION,AND HARDWARE REVISION L4-5; Surgeon: Vini Peterson MD; [facility]; Service: Orthopedic Spine; Laterality: N/A; MASTOIDECTOMY Left x3 TUBAL ABDOMINAL LIGATION General Information Row Name 02/04/25943 OT Time and Intention Document Type evaluation -SA Mode of Treatment occupational therapy -SA Row Name 02/04/25943 General Information Patient Profile Reviewed yes -SA Prior Level of Function independent:;all household mobility;gait;transfer;bed mobility;ADL's Uses rollator at baseline, owns RWx; primarily household distance ambulator; hx of chronic left foot drop -SA Existing Precautions/Restrictions fall;spinal;other (see comments) Hemovac -SA Barriers to Rehab previous functional deficit -SA Row Name 02/04/25943 Occupational Profile Occupational History/Life Experiences (Occupational Profile) Owns SPC, quad cane, elevated toilet seat, WIS with shower chair -SA Row Name 02/04/25943 Living Environment Current Living Arrangements home -SA People in Home child(teresita), adult -SA Row Name 02/04/25943 Home Main Entrance Number of Stairs, Main Entrance one Access to ramp -SA Stair Railings, Main Entrance none -SA Row Name 02/04/25943 Stairs Within Home, Primary Stair Railings, Within Home, Primary none -SA Row Name 02/04/25943 Cognition Orientation Status (Cognition) oriented x 4 -SA Row Name 02/04/25943 Safety Issues/Impairments Affecting Functional Mobility Safety Issues Affecting Function (Mobility) awareness of need for assistance;positioning of assistive device;safety precaution awareness;safety precautions follow-through/compliance;sequencing abilities -SA Impairments Affecting Function (Mobility) balance;endurance/activity tolerance;pain;postural/trunk control;range of motion (ROM);strength -SA User Metcalf (r) = Recorded By, (t) = Taken By, (c) = Cosigned By Initials Name Provider Type SA Winter Burton OT Occupational Therapist Mobility/ADL's Row Name 02/04/25946 Bed Mobility Bed Mobility rolling right;scooting/bridging;supine-sit -SA Rolling Right [place] (Bed Mobility) verbal cues;minimum assist (75% patient effort) - Scooting/Bridging [place] (Bed Mobility) standby assist;verbal cues -SA Supine-Sit [place] (Bed Mobility) minimum assist (75% patient effort);nonverbal cues (demo/gesture);verbal cues - Assistive Device (Bed Mobility) bed rails;head of bed elevated - Comment, (Bed Mobility) Increased time and effort secondary to pain; verbal cues for log roll and sequencing; Min A for trunk - Row Name 02/04/25946 Transfers Transfers sit-stand transfer;stand-sit transfer;toilet transfer - Row Name 02/04/25946 Sit-Stand Transfer Sit-Stand [place] (Transfers) verbal cues;contact guard - Assistive Device (Sit-Stand Transfers) walker, front-wheeled - Comment, (Sit-Stand Transfer) VC for hand placement; 1x from EOB, 1x from chair to complete LBD - Row Name 02/04/25946 Stand-Sit Transfer Stand-Sit [place] (Transfers) verbal cues;contact guard - Assistive Device (Stand-Sit Transfers) walker, front-wheeled - Comment, (Stand-Sit Transfer) VC to reach back for arm rests of chair - Row Name 02/04/25946 Toilet Transfer Type (Toilet Transfer) sit-stand;stand-sit -SA [place] Level (Toilet Transfer) verbal cues;contact guard - [...] BADL Assessment/Intervention upper body dressing;lower body dressing;grooming;toileting -SA Row Name 02/04/25 0947 Upper Body Dressing Assessment/Training [place] Level (Upper Body Dressing) doff;don;bra/undergarment;pull-over garment;minimum assist(75% patient effort) -SA Position (Upper Body Dressing) unsupported sitting -SA Row Name 02/04/25 0947 Lower Body Dressing Assessment/Training [place] Level (Lower Body Dressing) don;pants/bottoms;verbal cues;minimum assist (75% patient effort) -SA Assistive Devices (Lower Body Dressing) spanish lecturer -SA Position (Lower Body Dressing) unsupported sitting -SA Comment, (Lower Body Dressing) Pt educated on spinal precautions for LBD; pt provided AE for LBD; pt practiced with spanish lecturer and completed LBD with reach, Min A, and verbal cues; pt needs education and practice with sock aid and long handled shoe horn -SA Row Name 02/04/25 09 Grooming Assessment/Training [place] Level (Grooming) wash face, hands;contact guard assist -SA Position (Grooming) sink side -SA Row Name 02/04/25 0947 Toileting Assessment/Training [place] Level (Toileting) perform perineal hygiene;standby assist -SA Assistive Devices (Toileting) commode;raised toilet seat -SA Position (Toileting) unsupported sitting -SA User Metcalf (r) = Recorded By, (t) = Taken By, (c) = Cosigned By Initials Name Provider Type SA Winter Burton OT Occupational Therapist Obj/Interventions Row Name 02/04/25 0955 Sensory Assessment (Somatosensory) Sensory Assessment (Somatosensory) UE sensation intact - Sensory Assessment Reports intermittent numbness/tingling BLEs - Row Name 02/04/25 0955 Vision Assessment/Intervention Visual Impairment/Limitations WFL - Row Name 02/04/25 0955 Range of [...] Interventions sitting;standing;sit to stand;supported;static;dynamic;minimal challenge;occupation based/functional task -SA Comment, Balance No LOB at this [facility] -SA User Metcalf (r) = Recorded By, (t) = Taken By, (c) = Cosigned By Initials Name Provider Type SA Winter Burton, OT Occupational Therapist Goals/Plan Row Name 02/04/25 111 Bed Mobility Goal 1 (OT) Activity/Assistive Device (Bed Mobility Goal 1, OT) bed mobility activities, all -SA [place] Level/Cues Needed (Bed Mobility Goal 1, OT) independent -SA Time Frame (Bed Mobility Goal 1, OT) manager long term care goal (LTG);10 days -SA Progress/Outcomes (Bed Mobility Goal 1, OT) new goal -SA Row Name 02/04/25 111 Bathing Goal 1 (OT) Activity/Device (Bathing Goal 1, OT) bathing skills, all -SA [place] Level/Cues Needed (Bathing Goal 1, OT) independent -SA Time Frame (Bathing Goal 1, OT) manager long term care goal (LTG);10 days -SA Progress/Outcomes (Bathing Goal 1, OT) new goal -SA Row Name 02/04/25 111 Dressing Goal 1 (OT) Activity/Device (Dressing Goal 1, OT) dressing skills, all -SA [place]/Cues Needed (Dressing Goal 1, OT) independent -SA Time Frame (Dressing Goal 1, OT) manager long term care goal (LTG);10 days -SA Progress/Outcome (Dressing Goal 1, OT) new goal -SA Row Name 02/04/25 111 Problem Specific Goal 1 (OT) Problem Specific Goal 1 (OT) Pt will recall 3/3 spinal precautions without cues -SA Time Frame (Problem Specific Goal 1, OT) short term goal (STG);5 days -SA Progress/Outcome (Problem Specific Goal 1, OT) new goal -SA Row Name 02/04/25 111 Therapy Assessment/Plan (OT) Planned Therapy Interventions (OT) activity tolerance training;adaptive equipment training;BADL retraining;functional balance retraining;occupation/activity based interventions;patient/caregiver educa tion/training;ROM/therapeutic exercise;strengthening exercise;transfer/mobility retraining - User Metcalf (r) = Recorded By, (t) = Taken By, (c) = Cosigned By Initials Name Provider Type SA Winter Burton OT Occupational Therapist Clinical Impression [facility] Name 02/04/25956 Pain Assessment Pretreatment Pain Rating 2/10 -SA Posttreatment Pain Rating 6/10 - Pain Location back -SA Pain Side/Orientation lower -SA Pain Management Interventions activity modification encouraged;exercise or physical activity utilized;positioning techniques utilized;nursing notified - Response to Pain Interventions activity participation with tolerable pain -[facility] Name 02/04/25956 Plan of Care Review Plan of Care Reviewed With patient - Progress no change - Outcome Evaluation OT evaluation completed. Pt educated [...] fxnl status. OT recommends SNF at discharge. -[facility] Name 02/04/25956 Therapy Assessment/Plan (OT) Rehab Potential (OT) good - Criteria for Skilled Therapeutic Interventions Met (OT) yes;meets criteria;skilled treatment is necessary - Therapy Frequency (OT) daily - Predicted Duration of Therapy Intervention (OT) 10 days - Row Name 02/04/25956 Therapy Plan Review/Discharge Plan (OT) Anticipated Discharge Disposition (OT) alf facility -[facility] Name 02/04/25956 Vital Signs Pre Systolic BP Rehab 120 -SA Pre Treatment Diastolic BP 66 -SA Pre SpO2 (%) 96 -SA O2 Delivery Pre Treatment room air -SA Pre Patient Position Supine -[facility] Name 02/04/25956 Positioning and Restraints Pre-Treatment Position in bed -SA Post Treatment Position chair -SA In Chair notified nsg;reclined;call light within reach;encouraged to call for assist;exit alarm on;with family/caregiver;waffle cushion;legs elevated - User Metcalf (r) = Recorded By, (t) = Taken By, (c) = Cosigned By Initials Name Provider Type Winter Burton OT Occupational Therapist Outcome Measures Row Name [...] -SA AM-PAC 6 Clicks Score (OT) 20 - Row Name 02/04/25 1116 Functional Assessment Outcome Measure Options AM-PAC 6 Clicks Daily Activity (OT) - User Metcalf (r) = Recorded By, (t) = Taken By, (c) = Cosigned By Initials Name Provider Type Winter Burton OT Occupational Therapist Occupational Therapy Education Title: PT OT BUSINESS PROGRAMMER Therapies (In Progress) Topic: Occupational Therapy (In Progress) Point: ADL training (In Progress) Learning Progress Summary Patient Acceptance, E,D, NR by at 02/04/2025 1116 Point: Precautions (In Progress) Learning Progress Summary Patient Acceptance, E,D, NR by at 02/04/2025 1116 Point: Body mechanics (In Progress) Learning Progress Summary Patient Acceptance, E,D, NR by at 02/04/2025 1116 User Metcalf Initials Effective Dates Name Provider Type [facility] 12/18/24 - Winter Burton OT Occupational Therapist [...] Time Calculation- OT OT Start Time 0835 -SA OT Received On 02/04/25 -SA OT Goal Re-Cert Due Date 02/14/25 -SA Timed Charges 03957 - OT Self Care/Mgmt Minutes 15 -SA Untimed Charges OT Eval/Re-eval Minutes 65 -SA Total Minutes Timed Charges Total Minutes 15 -SA Untimed Charges Total Minutes 65 -SA Total Minutes 80 -SA User Metcalf (r) = Recorded By, (t) = Taken By, (c) = Cosigned By Initials Name Provider Type Winter Burton OT Occupational Therapist Therapy Charges for Today Code Description Service Date Service Provider Modifiers Qty [id number] OT SELF CARE/MGMT/TRAIN EA 15 MIN 02/04/2025 Winter Burton OT GO 1 [id number] -OT EVAL MOD COMPLEXITY 5 02/04/2025 Winter Burton [...] through Care Everywhere. * Laminectomy Care After (Ghanaian) * Incision Care Adult Pqru-px-Gziw (Ghanaian) * How to Use a Walker (Ghanaian) * Fall Prevention in the Home Adult Hocn-vh-Xdhx ([place]anaian) documented in this encounter Medications at Time [...] if polyethylene glycol is ineffective). 02/07/2025 Coenzyme X12-Jfmtuna E (QUNOL ULTRA COQ10 PO) Take 100 [...] PM EDT IM progress note Gladys Mendes [id number] 1945 LOS: 3 days Attending: Vini Peterson [...] Monitor post-op labs 7. Discharge planning for [place] tomorrow - Hypertension: Resume home medications as [...] hours) Procedure Component Value Units Date/Time Potassium [[id number]] (Normal) Collected: 02/05/2559 Specimen: Blood Updated: 02/05/25 08 Potassium 3.9 mmol/L Physical Exam: Continued partial [...] AM EDT IM progress note Gladys Mendes [id number] 1945 LOS: 2 days Attending: Vini Peterson [...] resolved Thuy Robertson APRN 02/05/25 11:05 EDT * Vini [...] hours) Procedure Component Value Units Date/Time Potassium [[id number]] Collected: 02/05/25658 Specimen: Blood Updated: 02/05/25 6007 Physical Exam: Continued partial left foot drop [...] not included. IM progress note Gladys Mendes [id number] 1945 LOS: 1 day Attending: Vini Peterson [...] SNF following d/c. Anticipated Discharge Disposition (PT): alf facility Physical Exam: General Appearance: Alert, cooperative, [...] Component Value Units Date/Time Basic Metabolic Panel [[id number]] (Abnormal) Collected: 02/04/25614 Specimen: Blood Updated: 02/04/25700 [...] as a factor Hemoglobin & Hematocrit, Blood [[id number]] (Abnormal) Collected: 02/04/25614 Specimen: Blood Updated: 02/04/25636 Hemoglobin 9.7 g/dL Hematocrit 31.1 % Physical Exam: Continued partial left foot drop which is chronic, otherwise Neurovascular intact. Calves soft, non-tender. Assessment & Plan Doing pretty well on POD #1 all things considered. Needs to continue to work with PT/OT and nursing to mobilize. Will leave drain in today. manager membership to evaluate for home needs vs. Rehab [...] by mouth Every Night. 02/02/2025 Evening Coenzyme J55-Qbrzlky E (QUNOL ULTRA COQ10 PO) Take 100 [...] GERD (gastroesophageal reflux disease) History of transfusion [facility], no reaction Hyperlipidemia Hypertension Past Surgical History: Procedure Laterality Date BREAST BIOPSY Right multiple COLONOSCOPY HEMORRHOIDECTOMY LUMBAR DISCECTOMY FUSION INSTRUMENTATION N/A 05/16/2022 Procedure: LUMBAR DECOMPRESSION WITH FUSION INSTRUMENTATION WITH PEDICLE SCREWS, CAGE AND ALLOGRAFTL4-5; Surgeon: Vini Peterson MD; Location: [facility]; Service: Orthopedic Spine; Laterality: N/A; MASTOIDECTOMY Left [...] -GERD: Resume PPI. Formulary substitution when indicated. Dragon disclaimer: Part of this encounter note is an electronic video production engineer/translation of spoken language to printed text. The electronic translation of spoken language may permit erroneous, or at times, nonsensicalwords or phrases to be inadvertently transcribed; Although I have reviewed the note for such errors, some may still exist. Pavithra Oakes MD 02/03/25 17:34 EDT * Vini Peterson MD - 02/03/2025 6:50 AM EDT Pre-Op H&P Gladys Mendes [id number] 1945 Chief complaint: Back pain Subjective: Patient [...] by mouth Every Night. 02/02/2025 Evening Coenzyme A46-Wcmlqcv E (QUNOL ULTRA COQ10 PO) Take 100 [...] GERD (gastroesophageal reflux disease) History of transfusion [facility], no reaction Hyperlipidemia Hypertension PSH: Past Surgical History: Procedure Laterality Date BREAST BIOPSY Right multiple COLONOSCOPY HEMORRHOIDECTOMY LUMBAR DISCECTOMY FUSION INSTRUMENTATION N/A 05/16/2022 Procedure: LUMBAR DECOMPRESSION WITH FUSION INSTRUMENTATION WITH PEDICLE SCREWS, CAGE AND ALLOGRAFTL4-5; Surgeon: Vini Peterson MD; Location: [facility]; Service: Orthopedic Spine; Laterality: N/A; MASTOIDECTOMY Left [...] FOR BEST OUTCOME. Anticipated Discharge Disposition (PT): alf facility * Loren Floyd RN - 02/06/2025 [...] Person-Centered Care Recent Flowsheet Documentation Taken 02/06/2025 08 by Loren Floyd RN Trust Relationship/Rapport: care [...] shift encouraged Head of Bed (HOB) Positioning: [facility] elevated Pressure Reduction Devices: pressure-redistributing mattress utilized positioning supports utilized Skin Protection: incontinence pads utilized silicone foam dressing in place transparent dressing maintained Taken 02/06/2025 1416 by Loren Floyd RN Pressure Reduction Techniques: frequent weight shift encouraged Head of Bed (HOB) Positioning: [facility] elevated Pressure Reduction Devices: pressure-redistributing mattress utilized positioning supports utilized Skin Protection: incontinence pads utilized silicone foam dressing in place transparent dressing maintained Taken 02/06/2025 1210 by Loren Floyd RN Pressure Reduction Techniques: frequent weight shift encouraged Head of Bed (HOB) Positioning: [facility] elevated Pressure Reduction Devices: pressure-redistributing mattress utilized positioning supports utilized Skin Protection: incontinence pads utilized silicone foam dressing in place transparent dressing maintained Taken 02/06/2025 1010 by Loren Floyd RN Pressure Reduction Techniques: frequent weight shift encouraged Head of Bed (HOB) Positioning: [facility] elevated Pressure Reduction Devices: pressure-redistributing mattress utilized positioning supports utilized Skin Protection: incontinence pads utilized silicone foam dressing in place transparent dressing maintained Taken 02/06/2025 0828 by Loren Floyd RN Pressure Reduction Techniques: frequent weight shift encouraged Head of Bed (HOB) Positioning: [facility] elevated Pressure Reduction Devices: pressure-redistributing mattress utilized positioning supports utilized Skin Protection: incontinence pads utilized silicone foam dressing in place transparent dressing maintained Taken 02/06/2025 0734 by Loren Folyd RN Activity Management: ambulated to bathroom Goal Outcome Evaluation: * Sheba Vasquez OT - 02/06/2025 2:42 PM EDT Goal Outcome Evaluation: Plan of Care Reviewed With: patient Progress: improving Outcome Evaluation: Pt demonstrated improvements w/ transfers and mobility this date. Pt educated on AE for increased I and safety w/ ADLs. Pt very motivated to return to [facility]. Anticipated Discharge Disposition (OT): alf facility * Amaris Reyes, PT - 02/06/2025 [...] best functional outcome. Anticipated Discharge Disposition (PT): alf facility * Essence Hernandez RN - 02/06/2025 [...] round/check completed toileting scheduled Taken 02/05/20252023 by Esesnce Hernandez RN Safety Promotion/Fall Prevention: activity supervised [...] dressing maintained Goal Outcome Evaluation: * Loren Flyod RN - 02/05/2025 3:31 PM EDT Problem: [...] dressing maintained Taken 02/05/2025 1230 by Loren Flody RN Body Position: position maintained Skin Protection: [...] best functional outcome. Anticipated Discharge Disposition (PT): alf facility * Corie Mast RN - 02/05/2025 [...] further needs at this time * Amaris Reyes, PT - 02/04/2025 1:01 PM EDT Goal [...] SNF following d/c. Anticipated Discharge Disposition (PT): alf facility * Winter Burton OT - 02/04/2025 [...] SNF at discharge. Anticipated Discharge Disposition (OT): alf facility * Corie Mast RN - 02/04/2025 [...] PM EDT Goal Outcome Evaluation: * Amaris Reyes PT - 02/03/2025 3:35 PM EDT Goal Outcome [...] overall functional mobility. Anticipated Discharge Disposition (PT): alf facility documented in this encounter OR Notes [...] Levels Completed:1 Level Surgeon: Vini Peterson MD Basket Bottom Machine Operator: Harman Kirk PA-C to assist with retraction, [...] the decompression was mixed with purified allograft (Vivigen) and placed in the lateral gutters over [...] Consult Dr. Nichols for medical management. Consult correctional case records supervisor for home needs vs Rehab Placement. Vini Peterson MD 02/03/25 documented in this encounter Miscellaneous Notes * Therapy Treatment Note - Angela Avila, PT - 02/07/2025 10:32 AM EDT Images [...] GERD (gastroesophageal reflux disease) History of transfusion [facility], no reaction Hyperlipidemia Hypertension Past Surgical History: Procedure Laterality Date BREAST BIOPSY Right multiple COLONOSCOPY HEMORRHOIDECTOMY LUMBAR DISCECTOMY FUSION INSTRUMENTATION N/A 05/16/2022 Procedure: LUMBAR DECOMPRESSION WITH FUSION INSTRUMENTATION WITH PEDICLE SCREWS, CAGE AND ALLOGRAFTL4-5; Surgeon: Vini Peterson MD; [facility]; Service: Orthopedic Spine; Laterality: N/A; LUMBAR DISCECTOMY FUSION INSTRUMENTATION N/A 02/03/2025 Procedure: REVISION DECOMPRESSION WITH REVISED FUSION WITH PEDICLE SCREWS WITH CEMENT AUGMENTATION,AND HARDWARE REVISION L4-5; Surgeon: Vini Peterson MD; [facility]; Service: Orthopedic Spine; Laterality: N/A; [...] Type CD Angela Avila, PT Physical Therapist Mobility Row Name 02/07/25 1153 Bed Mobility Comment, (Bed Mobility) PT [facility]ON ARRIVAL. REVIEWED LOG ROLLING TECHNIQUE FOR SUPINE<>SIT. -CD Row Name 02/07/25 1153 Transfers Comment, (Transfers) CUES FOR HAND PLACEMENT. STS FROM RECLINER AND COMMODE IN BATHROOM. -CD Row Name 02/07/25 1153 Sit-Stand Transfer Sit-Stand [place] (Transfers) contact guard;verbal cues -CD Assistive Device (Sit-Stand Transfers) walker, front-wheeled -CD Comment, (Sit-Stand Transfer) CUES FOR UPRIGHT POSTURE. INCREASED PAIN L LE. -CD Row Name 02/07/25 1153 Gait/Stairs (Locomotion) [place] Level (Gait) verbal cues;nonverbal cues (demo/gesture);contact guard [...] Type CD Angela Avila PT Physical Therapist Obj/Interventions Row Name 02/07/25 [...] Type CD Angela Avila PT Physical Therapist Goals/Plan No documentation. Clinical [...] Type CD Angela Avila, PT Physical Therapist Ivana Ureña, RN Registered Nurse Physical Therapy Education Title: PT OT BUSINESS PROGRAMMER Therapies (Done) Topic: Physical Therapy (Done) Point: [...] Minutes- PT 48 minute(s) -CD Timed Charges 09292 - PT Therapeutic Exercise Minutes 10 -CD 59856 - Gait Training Minutes 20 -CD 38606 - PT Therapeutic Activity Minutes 18 -CD Total Minutes Timed Charges Total Minutes 48 -CD Total Minutes 48 -CD User Metcalf (r) = Recorded By, (t) = Taken By, (c) = Cosigned By Initials Name Provider Type CD Angela Avila, PT Physical Therapist Therapy Charges for Today Code Description Service Date Service Provider Modifiers Qty 69133951176 HC PT THER PROC EA 15 MIN 02/07/2025 Angela Avila, PT GP 1 60586212620 HC GAIT TRAINING EA 15 MIN 02/07/2025 Anglea Avila, PT GP 1 41760285306 HC PT THERAPEUTIC ACT EA 15 MIN 02/07/2025 Angela Avila, PT GP 1 PT G-Codes Outcome Measure Options: AM-PAC 6 Clicks Basic Mobility (PT) AM-PAC 6 Clicks Score (PT): 17 AM-PAC 6 Clicks Score (OT): 20 PT Discharge Summary Anticipated Discharge Disposition (PT): alf facility Angela Avila PT 02/07/2025 * Therapy [...] GERD (gastroesophageal reflux disease) History of transfusion [facility], no reaction Hyperlipidemia Hypertension Past Surgical History: Procedure Laterality Date BREAST BIOPSY Right multiple COLONOSCOPY HEMORRHOIDECTOMY LUMBAR DISCECTOMY FUSION INSTRUMENTATION N/A 05/16/2022 Procedure: LUMBAR DECOMPRESSION WITH FUSION INSTRUMENTATION WITH PEDICLE SCREWS, CAGE AND ALLOGRAFTL4-5; Surgeon: Vini Peterson MD; [facility]; Service: Orthopedic Spine; Laterality: N/A; LUMBAR DISCECTOMY FUSION INSTRUMENTATION N/A 02/03/2025 Procedure: REVISION DECOMPRESSION WITH REVISED FUSION WITH PEDICLE SCREWS WITH CEMENT AUGMENTATION,AND HARDWARE REVISION L4-5; Surgeon: Vini Peterson MD; [facility]; Service: Orthopedic Spine; Laterality: N/A; MASTOIDECTOMY Left x3 TUBAL ABDOMINAL LIGATION General Information Row Name 02/06/25 1522 OT Time and Intention Document Type therapy note (daily note) -MR Mode of Treatment occupational therapy -MR Row Name 02/06/25 1522 General Information Patient Profile Reviewed yes -MR Existing Precautions/Restrictions fall;spinal -MR Barriers to Rehab previous functional deficit -MR Row Name 02/06/25 1522 Cognition Orientation Status (Cognition) oriented x 4 -MR Row Name 02/06/25 1522 Safety Issues/Impairments Affecting Functional Mobility Safety Issues Affecting Function (Mobility) awareness of need for assistance;insight into deficits/self-awareness;safety precaution awareness;safety precautions follow-through/compliance;positioning of assistive device -MR Impairments Affecting Function (Mobility) balance;endurance/activity tolerance;pain;postural/trunk control;range of motion (ROM);strength -MR User Metcalf (r) = Recorded By, (t) = Taken By, (c) = Cosigned By Initials Name Provider Type Sheba Aguilar, OT Occupational Therapist Mobility/ADL's Row Name 02/06/25 152 Bed Mobility Comment, (Bed Mobility) Pt UIC upon arrival and left UIC at end of session. -MR Row Name 02/06/251521 Transfers Transfers sit-stand transfer -MR Row Name 02/06/25 152 Sit-Stand Transfer Sit-Stand [place] (Transfers) contact guard;verbal cues;nonverbal cues (demo/gesture) -MR Assistive Device (Sit-Stand Transfers) walker, front-wheeled -MR Row Name 02/06/251521 Functional Mobility Functional Mobility- Ind. Level contact guard assist -MR Functional Mobility- Device walker, front-wheeled -MR Functional Mobility-Distance (Feet) -- HH distances -MR Row Name 02/06/251521 Activities of Daily Living BADL Assessment/Intervention lower body dressing;bathing;toileting;upper body dressing -MR Row Name 02/06/251521 Upper Body Dressing Assessment/Training [place] Level (Upper Body Dressing) don;doff;minimum assist (75% patient effort);pajama/robe -MR Position (Upper Body Dressing) unsupported standing -MR Row Name 02/06/251521 Lower Body Dressing Assessment/Training [place] Level (Lower Body Dressing) don;doff;shoes/slippers;socks;dependent (less than 25% patient effort) -MR Assistive Devices (Lower Body Dressing) long-handled shoe horn;spanish lecturer;sock-aid -MR Position (Lower Body Dressing) supported sitting -MR Comment, (Lower Body Dressing) OT re-educated pt on use of AE for increased I and safety w/ ADLs while limited by spinal precautions. -MR Row Name 02/06/251521 Toileting Assessment/Training [place] Level (Toileting) perform perineal hygiene;toileting skills -MR Assistive Devices (Toileting) toilet paper aid -MR Comment, (Toileting) OT issued and educated pt on use of toilet paper aide for increased I and safety w/ toileting task while being limited by spinal precautions. -MR Row Name 02/06/25 1522 Bathing Assessment/Intervention [place] Level (Bathing) bathing skills -MR Comment, (Bathing) OT educated pt on use of long handled sponge for increased I and safety w/ bathing while limtied by spinal precautions. -MR User Metcalf (r) = Recorded By, (t) = Taken By, (c) = Cosigned By Initials Name Provider Type Sheba Vasquez OT Occupational Therapist Obj/Interventions Row Name 02/06/25 [...] Provider Type Sheba Vasquez, OT Occupational Therapist Goals/Plan No documentation. Clinical Impression Row Name 02/06/25 153 Pain Assessment Pretreatment Pain Rating 5/10 -MR Posttreatment Pain Rating 5/10 -MR Pain Location back -MR Pain Side/Orientation generalized -MR Row Name 02/06/251536 Plan of Care Review Plan of Care Reviewed With patient -MR Progress improving -MR Outcome Evaluation Pt demonstrated improvements w/ transfers and mobility this date. Pt educated onAE for increased I and safety w/ ADLs. Pt very motivated to return to [facility]. -MR Row Name 02/06/25 153 Therapy Plan Review/Discharge Plan (OT) Anticipated Discharge Disposition (OT) alf facility -MR Row Name 02/06/25 153 Vital Signs O2 Delivery Pre Treatment room [...] By Initials Name Provider Type Sheba Aguilar, OT Occupational Therapist Outcome Measures Row Name 02/06/25 [...] By Initials Name Provider Type Sheba Aguilar, OT Occupational Therapist [place] Amaris Reyes PT Physical Therapist Occupational Therapy Education Title: PT OT BUSINESS PROGRAMMER Therapies (In Progress) Topic: Occupational Therapy (In Progress) Point: ADL training (Done) Learning Progress Summary Patient Acceptance, E, NR,VU by MR at 02/06/2025 1542 Acceptance, E,D, NR by at 02/04/2025 1116 Point: Precautions (Done) Learning Progress Summary Patient Acceptance, E, NR,VU by MR at 02/06/2025 1542 Acceptance, E,D, NR by at 02/04/2025 1116 Point: Body mechanics (Done) Learning Progress Summary Patient Acceptance, E, NR,VU by at 02/06/2025 1542 Acceptance, E,D, NR by at 02/04/2025 1116 User Metcalf Initials Effective Dates Name Provider Type Discipline MR 05/26/22 - Sheba Vasquez, OT Occupational Therapist OT 12/18/24 - Winter Burton OT Occupational Therapist OT OT Recommendation and Plan Plan of Care Review Plan of Care Reviewed With: patient Progress: improving Outcome Evaluation: Pt demonstrated improvements w/ transfers and mobility this date. Pt educated on AE for increased I and safety w/ ADLs. Pt very motivated to return to [facility]. Time Calculation: Time Calculation- OT Row Name 02/06/25 1543 02/06/25 1406 Time Calculation- OT OT Start Time 1442 -MR -- OT Received On 02/06/25 -MR -- Timed Charges 84774 - Gait Training Minutes -- 16 -ND 28655 - OT Therapeutic Activity Minutes 18 -MR -- 65009 - OT Self Care/Mgmt Minutes 20 -MR -- Total Minutes Timed Charges Total Minutes 38 -MR 16 -ND Total Minutes 38 -MR 16 -ND User Metcalf (r) = Recorded By, (t) = Taken By, (c) = Cosigned By Initials Name Provider Type Sheba Aguilar, OT Occupational Therapist ND Amaris Reyes, PT Physical Therapist Therapy Charges for Today Code Description Service Date Service Provider Modifiers Qty [id number] HC OT THERAPEUTIC ACT EA 15 MIN 02/06/2025 Sheba Vasquez OT GO 1 24331100813 HC OT SELF CARE/MGMT/TRAIN EA 15 MIN 02/06/2025 Sheba Vasquez OT GO 2 Sheba Vasquez OT 02/06/2025 * Case Management/Social Work - Kristy Ramirez, RN - 02/06/2025 2:23 PM EDT Case Management Discharge Note Final Note: Plan to transfer to [facility] rehab on 02-07, insurance approved. Call report to [phone] and fax d/c summary [phone]. Transportation arranged with [facility] van and sampler pickup is 1530 on 02-06. Please have patient at the [address] Maternity Entrance by 1520. I talked with patient's and updated. I called patient's dtr and updated her on discharge. Selected Continued Care - Admitted Since 02/03/2025 Destination Coordination complete. Service Provider Services Address Phone Fax Patient Preferred [facility] [address], [facility] [phone] -- Durable Medical Equipment [...] selected for the patient. Transportation Services Ambulance: [facility] Transportation Final Discharge Disposition Code: 03 - alf facility (SNF) * Therapy Treatment Note - Amaris Reyes, PT - 02/06/2025 11:14 AM EDT Images [...] GERD (gastroesophageal reflux disease) History of transfusion [facility], no reaction Hyperlipidemia Hypertension Past Surgical History: Procedure Laterality Date BREAST BIOPSY Right multiple COLONOSCOPY HEMORRHOIDECTOMY LUMBAR DISCECTOMY FUSION INSTRUMENTATION N/A 05/16/2022 Procedure: LUMBAR DECOMPRESSION WITH FUSION INSTRUMENTATION WITH PEDICLE SCREWS, CAGE AND ALLOGRAFTL4-5; Surgeon: Vini Peterson MD; [facility]; Service: Orthopedic Spine; Laterality: N/A; LUMBAR DISCECTOMY FUSION INSTRUMENTATION N/A 02/03/2025 Procedure: REVISION DECOMPRESSION WITH REVISED FUSION WITH PEDICLE SCREWS WITH CEMENT AUGMENTATION,AND HARDWARE REVISION L4-5; Surgeon: Vini Peterson MD; [facility]; Service: Orthopedic Spine; Laterality: N/A; MASTOIDECTOMY Left x3 TUBAL ABDOMINAL LIGATION General Information Row Name 02/06/25 1336 02/06/25 1154 Physical Therapy Time and Intention Document Type -- -ND therapy note (daily note) -ND Mode of Treatment -- -ND physical therapy -ND Row Name 02/06/25 1336 02/06/25 1154 General Information Patient Profile Reviewed -- -ND [...] Reyes, PT Physical Therapist Mobility Row Name 02/06/25 1401 Bed Mobility Comment, (Bed Mobility) Pt found and left sitting UIC. -ND Row Name 02/06/25 1401 Sit-Stand Transfer Sit-Stand [place] (Transfers) contact guard;verbal cues;nonverbal cues (demo/gesture) -ND Assistive Device (Sit-Stand Transfers) walker, front-wheeled -ND Comment, (Sit-Stand Transfer) from chair, from toilet. Increased pain in standing. -ND Row Name 02/06/25 1401 Gait/Stairs (Locomotion) [place] Level (Gait) minimum assist (75% patient effort);verbal [...] PT Physical Therapist Obj/Interventions Row Name 02/06/25 1404 Balance Balance Assessment sitting static balance;sitting dynamic [...] No documentation. Clinical Impression Row Name 02/06/25 1404 Pain Pretreatment Pain Rating 5/10 -ND Posttreatment Pain Rating 7/10 -ND Pain Location back -ND Pain Side/Orientation generalized -ND Pain Management Interventions positioning techniques utilized;exercise or physical activity utilized;activity modification encouraged;cold applied -ND Response to Pain Interventions activity participation with increased pain -ND Row Name 02/06/25 140 Plan of Care Review Plan of Care [...] Provider Type Amaris Rahman PT Physical Therapist Outcome Measures Row Name 02/06/25 [...] Therapist Physical Therapy Education Title: PT OT BUSINESS PROGRAMMER Therapies (In Progress) Topic: Physical Therapy (Done) [...] Metcalf Initials Effective Dates Name Provider Type [facility] [place] 07/20/23 - Amaris Reyes, PT Physical Therapist [...] Time 1114 -ND PT Received On 02/06/25 - Timed Charges 14826 - Gait Training Minutes 16 - 98684 - PT Therapeutic Activity Minutes 10 -ND Total Minutes Timed Charges Total Minutes - Total Minutes User Metcalf (r) = Recorded By, (t) = Taken By, (c) = Cosigned By Initials Name Provider Type Amaris Rahman, PT Physical Therapist Therapy Charges for Today Code Description Service Date Service Provider Modifiers Qty 45909651504 HC PT THER PROC EA 15 MIN 02/05/2025 Amaris Reyes, PT GP 1 52330131481 HC GAIT TRAINING EA 15 MIN 02/05/2025 Amaris Reyes, PT GP 1 29572854896 HC PT THERAPEUTIC ACT EA 15 MIN 02/05/2025 Amaris Reyes, PT GP 1 92056646055 HC GAIT TRAINING EA 15 MIN 02/06/2025 Amaris Reyes, PT GP 1 39463962262 HC PT THERAPEUTIC ACT EA 15 MIN 02/06/2025 Amaris Reyes, PT GP 1 PT G-Codes Outcome Measure Options: AM-PAC 6 Clicks Basic Mobility (PT) AM-PAC 6 Clicks Score (PT): 17 AM-PAC 6 Clicks Score (OT): 20 PT Discharge Summary Anticipated Discharge Disposition (PT): alf facility Amaris Reyes PT 02/06/2025 * Case Management/Social Work - David Noel RN - 02/05/2025 2:42 PM EDT Continued Stay Note [facility] Patient Name: Gladys Mendes Today's Date: 02/05/2025 Admit Date: 02/03/2025 Plan: skilled rehab at [facility], pending insurance approval Discharge Plan Row Name 02/05/25 1440 Plan Plan skilled rehab at [facility], pending insurance approval Patient/Family in Agreement with Plan yes Plan Comments Met with patient and her family at the bedside to discuss discharge plan. Patient is agreeable to therapy's recommendation for inpatient rehab. Referrals given to Edyta with [facility] and Jes with [facility]. Patient accepts bed offer to [facility] in [place]. CM will initiate precertification for insurance approval today. CM will continue to follow and assist with discharge planning. Final Discharge Disposition Code 03 - alf facility (SNF) Discharge Codes No documentation. David [...] GERD (gastroesophageal reflux disease) History of transfusion [facility], no reaction Hyperlipidemia Hypertension Past Surgical History: Procedure Laterality Date BREAST BIOPSY Right multiple COLONOSCOPY HEMORRHOIDECTOMY LUMBAR DISCECTOMY FUSION INSTRUMENTATION N/A 05/16/2022 Procedure: LUMBAR DECOMPRESSION WITH FUSION INSTRUMENTATION WITH PEDICLE SCREWS, CAGE AND ALLOGRAFTL4-5; Surgeon: Vini Peterson MD; [facility]; Service: Orthopedic Spine; Laterality: N/A; LUMBAR DISCECTOMY FUSION INSTRUMENTATION N/A 02/03/2025 Procedure: REVISION DECOMPRESSION WITH REVISED FUSION WITH PEDICLE SCREWS WITH CEMENT AUGMENTATION,AND HARDWARE REVISION L4-5; Surgeon: Vini Peterson MD; [facility]; Service: Orthopedic Spine; Laterality: N/A; [...] Row Name 02/05/25 1010 Sit-Stand Transfer Sit-Stand [place] (Transfers) contact guard;nonverbal cues (demo/gesture);verbal cues -ND Assistive Device (Sit-Stand Transfers) walker, front-wheeled -ND Comment, (Sit-Stand Transfer) x1 from chair, x1 from toilet. Increased time for upright posture dueto pain. -ND Row Name 02/05/25 1010 Gait/Stairs (Locomotion) [place] Level (Gait) minimum assist (75% patient effort);verbal [...] Provider Type Amaris Rahman PT Physical Therapist Outcome Measures Row Name 02/05/25 [...] Therapist Physical Therapy Education Title: PT OT BUSINESS PROGRAMMER Therapies (In Progress) Topic: Physical Therapy (Done) [...] 02/05/25 1024 Time Calculation Start Time 0907 - PT Received On 02/05/25 - Timed Charges 98133 - PT Therapeutic Exercise Minutes 10 -ND 93095 - Gait Training Minutes 15 -ND 99643 - PT Therapeutic Activity Minutes 15 -ND Total Minutes Timed Charges Total Minutes 40 -ND Total Minutes 40 -ND User Metcalf (r) = Recorded By, (t) = Taken By, (c) = Cosigned By Initials Name Provider Type ND Amaris Reyes PT Physical Therapist Therapy Charges for Today Code Description Service Date Service Provider Modifiers Qty [id number] HC GAIT TRAINING EA 15 MIN 02/04/2025 Amaris Reyes, PT GP 1 80484086468 HC PT THERAPEUTIC ACT EA 15 MIN 02/04/2025 Amaris Reyes, PT GP 1 16517007460 HC PT THER PROC EA 15 MIN 02/05/2025 Amaris Reyes, PT GP 1 19134932707 HC GAIT TRAINING EA 15 MIN 02/05/2025 Amaris Reyes, PT GP 1 [id number] PT THERAPEUTIC ACT EA 15 MIN 02/05/2025 Amaris Reyes, PT GP 1 PT G-Codes Outcome Measure Options: AM-PAC 6 Clicks Basic Mobility (PT) AM-PAC 6 Clicks Score (PT): 17 AM-PAC 6 Clicks Score (OT): 20 PT Discharge Summary Anticipated Discharge Disposition (PT): alf facility mAaris Reyes PT 02/05/2025 * Therapy Treatment Note - Amaris Reyes, PT - 02/04/2025 1:01 PM EDT Images [...] GERD (gastroesophageal reflux disease) History of transfusion [facility], no reaction Hyperlipidemia Hypertension Past Surgical History: Procedure Laterality Date BREAST BIOPSY Right multiple COLONOSCOPY HEMORRHOIDECTOMY LUMBAR DISCECTOMY FUSION INSTRUMENTATION N/A 05/16/2022 Procedure: LUMBAR DECOMPRESSION WITH FUSION INSTRUMENTATION WITH PEDICLE SCREWS, CAGE AND ALLOGRAFTL4-5; Surgeon: Vini Peterson MD; [facility]; Service: Orthopedic Spine; Laterality: N/A; LUMBAR DISCECTOMY FUSION INSTRUMENTATION N/A 02/03/2025 Procedure: REVISION DECOMPRESSION WITH REVISED FUSION WITH PEDICLE SCREWS WITH CEMENT AUGMENTATION,AND HARDWARE REVISION L4-5; Surgeon: Vini Peterson MD; [facility]; Service: Orthopedic Spine; Laterality: N/A; MASTOIDECTOMY Left x3 TUBAL ABDOMINAL LIGATION General Information Row Name 02/04/25 1335 Physical Therapy Time and Intention Document Type therapy note (daily note) -ND Mode of Treatment physical therapy -ND Row Name 02/04/25 1335 General Information Patient Profile Reviewed yes -ND Existing Precautions/Restrictions fall;spinal;other (see comments) Hemovac -ND Barriers to Rehab previous functional deficit -ND Row Name 02/04/25 1335 Cognition Orientation Status (Cognition) oriented x 4 -ND Row Name 02/04/25 133 Safety Issues/Impairments Affecting Functional Mobility Safety Issues Affecting Function (Mobility) awareness of need for assistance;insight into deficits/self-awareness;safety precaution awareness;safety precautions follow-through/compliance;sequencing abilities -ND Impairments Affecting Function (Mobility) balance;endurance/activity tolerance;pain;postural/trunk control;range of motion (ROM);strength -ND User Metcalf (r) = Recorded By, (t) = Taken By, (c) = Cosigned By Initials Name Provider Type ND Amaris Reyes, PT Physical Therapist Mobility Row Name 02/04/25 1335 Bed Mobility Comment, (Bed Mobility) Pt found in bathroom with family upon PT arrival. Left sitting UIC. -ND Row Name 02/04/25 1336 Sit-Stand Transfer Sit-Stand [place] (Transfers) contact guard;verbal cues;nonverbal cues (demo/gesture) -ND Assistive Device (Sit-Stand Transfers) walker, front-wheeled -ND Comment, (Sit-Stand Transfer) x1 from chair, increased time for upright posture. -WV Row Name 02/04/25 1335 Gait/Stairs (Locomotion) [place] Level (Gait) minimum assist (75% patient effort);verbal [...] Type ND Amaris Reyes, FERNANDO Physical Therapist Obj/Interventions Row Name 02/04/25 134 Motor Skills Therapeutic Exercise hip;knee;ankle -WV Row Name 02/04/25 134 Hip (Therapeutic Exercise) Hip (Therapeutic Exercise) isometric exercises -ND Hip Isometrics (Therapeutic Exercise) bilateral;gluteal sets;other (see comments);10 repetitions Abdominal setting -ND Row Name 02/04/25 134 Knee (Therapeutic Exercise) Knee (Therapeutic Exercise) strengthening exercise -ND Knee Strengthening (Therapeutic Exercise) bilateral;LAQ (long arc quad);10 repetitions -WV Row Name 02/04/25 134 Ankle (Therapeutic Exercise) Ankle (Therapeutic Exercise) AROM (active range of motion) -ND Ankle AROM (Therapeutic Exercise) bilateral;dorsiflexion;plantarflexion;10 repetitions -WV Row Name 02/04/25 134 Balance Balance Assessment [...] Type ND Amaris Reyes PT Physical Therapist Goals/Plan No documentation. Clinical Impression Row Name 02/04/251340 Pain Pretreatment Pain Rating 7/10 -ND Posttreatment Pain Rating 6/10 -ND Pain Location back -ND Pain Side/Orientation lower -ND Pain Management Interventions positioning techniques utilized;exercise or physical activity utilized;activity modification encouraged;premedicated for activity;cold applied -ND Response to Pain Interventions intervention effective per patient report -ND Row Name 02/04/251340 Plan of Care Review Plan of Care [...] Provider Type Amaris Rahman PT Physical Therapist Outcome Measures Row Name 02/04/25 [...] AM-PAC 6 Clicks Basic Mobility (PT) -ND AM-PAC 6 Clicks Daily Activity (OT)- User Metcalf (r) = Recorded By, (t) = Taken By, (c) = Cosigned By Initials Name Provider Type Amaris Rahman PT Physical Therapist Winter Galvan OT Occupational Therapist Physical Therapy Education Title: PT OT BUSINESS PROGRAMMER Therapies (In Progress) Topic: Physical Therapy (Done) Point: Mobility training (Done) Learning Progress Summary Patient Acceptance, E, VU by CLAUDIA at 02/04/2025 1346 Acceptance, E, VU by CLAUDIA at 02/03/2025 1644 Point: Home exercise program [...] PT Received On 02/04/25 -ND Timed Charges 29180 - Gait Training Minutes 10 -ND 85392 - PT Therapeutic Activity Minutes 17 -ND Total Minutes Timed Charges Total Minutes 27 - Total Minutes 27 -ND User Metcalf (r) = Recorded By, (t) = Taken By, (c) = Cosigned By Initials Name Provider Type ND Amaris Reyes PT Physical Therapist Therapy Charges for Today Code Description Service Date Service Provider Modifiers Qty 66535311200 HC PT EVAL MOD COMPLEXITY 4 02/03/2025 Amaris Reyes, PT GP 1 65512138275 HC PT THER SUPP EA 15 MIN 02/03/2025 Amaris Reyes, PT GP 3 34307891249 HC GAIT TRAINING EA 15 MIN 02/04/2025 Amaris Reyes, PT GP 1 [id number] PT THERAPEUTIC ACT EA 15 MIN 02/04/2025 Amaris Reyes, PT GP 1 PT G-Codes Outcome Measure Options: AM-PAC 6 Clicks Basic Mobility (PT) AM-PAC 6 Clicks Score (PT): 17 AM-PAC 6 Clicks Score (OT): 20 PT Discharge Summary Anticipated Discharge Disposition (PT): alf facility Amaris Reyes PT 02/04/2025 * Case Management/Social Work - David Noel RN - 02/04/2025 12:28 PM EDT Discharge Planning Assessment [facility] Patient Name: Gladys Mendes Today's Date: [...] with help/services Patient/Family Anticipated Services at [facility] program manager Anticipated family or friend will provide [...] with her son in a house in [facility]. There is 1 step to enter the home. At baseline, patient is independent with ADLs and uses a rolling walker, cane, rollator, and shower chair. Patient denies any home health services or home oxygen use. Patient has [employer] Medicare with prescription benefits [facility] Patient's goal is home at discharge. Son will transport. CM will continue to follow and assist with discharge planning as recommendations become available. Final Discharge Disposition Code 01 - home or self-care Demographic Summary Row Name 02/04/25 1222 General Information Admission Type inpatient Arrived From home Referral Source physician Reason for Consult discharge planning Preferred Language Ghanaian General Information Comments PCP Placido Mercado Contact [...] GERD (gastroesophageal reflux disease) History of transfusion [facility], no reaction Hyperlipidemia Hypertension Past Surgical History: Procedure Laterality Date BREAST BIOPSY Right multiple COLONOSCOPY HEMORRHOIDECTOMY LUMBAR DISCECTOMY FUSION INSTRUMENTATION N/A 05/16/2022 Procedure: LUMBAR DECOMPRESSION WITH FUSION INSTRUMENTATION WITH PEDICLE SCREWS, CAGE AND ALLOGRAFTL4-5; Surgeon: Vini Peterson MD; [facility]; Service: Orthopedic Spine; Laterality: N/A; LUMBAR DISCECTOMY FUSION INSTRUMENTATION N/A 02/03/2025 Procedure: REVISION DECOMPRESSION WITH REVISED FUSION WITH PEDICLE SCREWS WITH CEMENT AUGMENTATION,AND HARDWARE REVISION L4-5; Surgeon: Vini Peterson MD; [facility]; Service: Orthopedic Spine; Laterality: N/A; MASTOIDECTOMY Left x3 TUBAL ABDOMINAL LIGATION General Information Row Name 02/04/25943 OT Time and Intention Document Type evaluation -SA Mode of Treatment occupational therapy - Row Name 02/04/25943 General Information Patient Profile Reviewed yes -SA Prior Level of Function independent:;all household mobility;gait;transfer;bed mobility;ADL's Uses rollator at baseline, owns RWx; primarily household distance ambulator; hx of chronic left foot drop -SA Existing Precautions/Restrictions fall;spinal;other (see comments) Hemovac -SA Barriers to Rehab previous functional deficit -SA Row Name 02/04/25943 Occupational Profile Occupational History/Life Experiences (Occupational Profile) Owns SPC, quad cane, elevated toilet seat, WIS with shower chair -SA Row Name 02/04/25943 Living Environment Current Living Arrangements home -SA People in Home child(teresita), adult -SA Row Name 02/04/25943 Home Main Entrance Number of Stairs, Main Entrance one Access to ramp -SA Stair Railings, Main Entrance none -SA Row Name 02/04/25943 Stairs Within Home, Primary Stair Railings, Within Home, Primary none -SA Row Name 02/04/25943 Cognition Orientation Status (Cognition) oriented x 4 -SA Row Name 02/04/25943 Safety Issues/Impairments Affecting Functional Mobility Safety Issues Affecting Function (Mobility) awareness of need for assistance;positioning of assistive device;safety precaution awareness;safety precautions follow-through/compliance;sequencing abilities -SA Impairments Affecting Function (Mobility) balance;endurance/activity tolerance;pain;postural/trunk control;range of motion (ROM);strength - User Metcalf (r) = Recorded By, (t) = Taken By, (c) = Cosigned By Initials Name Provider Type Winter Galvan OT Occupational Therapist Mobility/ADL's Row Name 02/04/25946 Bed Mobility Bed Mobility rolling right;scooting/bridging;supine-sit -SA Rolling Right [place] (Bed Mobility) verbal cues;minimum assist (75% patient effort) -SA Scooting/Bridging [place] (Bed Mobility) standby assist;verbal cues -SA Supine-Sit [place] (Bed Mobility) minimum assist (75% patient effort);nonverbal cues (demo/gesture);verbal cues - Assistive Device (Bed Mobility) bed rails;head of bed elevated - Comment, (Bed Mobility) Increased time and effort secondary to pain; verbal cues for log roll and sequencing; Min A for trunk -SA Row Name 02/04/25946 Transfers Transfers sit-stand transfer;stand-sit transfer;toilet transfer - Row Name 02/04/25946 Sit-Stand Transfer Sit-Stand [place] (Transfers) verbal cues;contact guard -SA Assistive Device (Sit-Stand Transfers) walker, front-wheeled -SA Comment, (Sit-Stand Transfer) VC for hand placement; 1x from EOB, 1x from chair to complete LBD - Row Name 02/04/25946 Stand-Sit Transfer Stand-Sit [place] (Transfers) verbal cues;contact guard -SA Assistive Device (Stand-Sit Transfers) walker, front-wheeled -SA Comment, (Stand-Sit Transfer) VC to reach back for arm rests of chair - Row Name 02/04/25946 Toilet Transfer Type (Toilet Transfer) sit-stand;stand-sit -SA [place] Level (Toilet Transfer) verbal cues;contact guard -SA Assistive Device (Toilet Transfer) grab bars/safety frame;raised toilet seat -SA Comment, (Toilet Transfer) VC for sequencing -SA Row Name 06/03/25 0947 Functional Mobility Functional Mobility- Ind. Level contact guard assist - Functional Mobility- Device walker, front-wheeled - Functional Mobility-Distance (Feet) -- To/from restroom within room - Patient was able to Ambulate yes - Row Name 02/04/25 09 Activities of Daily Living BADL Assessment/Intervention upper body dressing;lower body dressing;grooming;toileting - Row Name 02/04/25946 Upper Body Dressing Assessment/Training [place] Level (Upper Body Dressing) doff;don;bra/undergarment;pull-over garment;minimum assist(75% patient effort) - Position (Upper Body Dressing) unsupported sitting -SA Row Name 02/04/25 09 Lower Body Dressing Assessment/Training [place] Level (Lower Body Dressing) don;pants/bottoms;verbal cues;minimum assist (75% patient effort) - Assistive Devices (Lower Body Dressing) spanish lecturer - Position (Lower Body Dressing) unsupported sitting - Comment, (Lower Body Dressing) Pt educated on spinal precautions for LBD; pt provided AE for LBD; pt practiced with spanish lecturer and completed LBD with reach, Min A, and verbal cues; pt needs education and practice with sock aid and long handled shoe horn - Row Name 02/04/25946 Grooming Assessment/Training [place] Level (Grooming) wash face, hands;contact guard assist - Position (Grooming) sink side - Row Name 02/04/25946 Toileting Assessment/Training [place] Level (Toileting) perform perineal hygiene;standby assist - Assistive Devices (Toileting) commode;raised toilet seat - Position (Toileting) unsupported sitting - User Metcalf (r) = Recorded By, (t) = Taken By, (c) = Cosigned By Initials Name Provider Type Winter Galvan OT Occupational Therapist Obj/Interventions Row Name 02/04/25 09 Sensory Assessment (Somatosensory) Sensory Assessment (Somatosensory) UE sensation intact - Sensory Assessment Reports intermittent numbness/tingling BLEs - Row Name 02/04/25 09 Vision Assessment/Intervention Visual Impairment/Limitations WFL - Row Name 02/04/25 09 Range of Motion Comprehensive General Range of Motion bilateral upper extremity ROM WNL - Row Name 02/04/25 0955 Strength Comprehensive (MMT) Comment, General Manual Muscle Testing (MMT) Assessment BUMarguerite grossly WFL -SA Row Name 02/04/25 0955 Balance Balance Assessment [...] Interventions sitting;standing;sit to stand;supported;static;dynamic;minimal challenge;occupation based/functional task -SA Comment, Balance No LOB at this [facility] -SA User Metcalf (r) = Recorded By, (t) = Taken By, (c) = Cosigned By Initials Name Provider Type SA Winter Burton, OT Occupational Therapist Goals/Plan Row Name 02/04/25 111 Bed Mobility Goal 1 (OT) Activity/Assistive Device (Bed Mobility Goal 1, OT) bed mobility activities, all -SA [place] Level/Cues Needed (Bed Mobility Goal 1, OT) independent -SA Time Frame (Bed Mobility Goal 1, OT) manager long term care goal (LTG);10 days -SA Progress/Outcomes (Bed Mobility Goal 1, OT) new goal -SA Row Name 02/04/25 111 Bathing Goal 1 (OT) Activity/Device (Bathing Goal 1, OT) bathing skills, all -SA [place] Level/Cues Needed (Bathing Goal 1, OT) independent -SA Time Frame (Bathing Goal 1, OT) manager long term care goal (LTG);10 days -SA Progress/Outcomes (Bathing Goal 1, OT) new goal -SA Row Name 02/04/25 111 Dressing Goal 1 (OT) Activity/Device (Dressing Goal 1, OT) dressing skills, all -SA [place]/Cues Needed (Dressing Goal 1, OT) independent -SA Time Frame (Dressing Goal 1, OT) mcc goal (LTG);10 days -SA Progress/Outcome (Dressing Goal 1, OT) new goal -SA Row Name 02/04/25 111 Problem Specific Goal 1 (OT) Problem Specific Goal 1 (OT) Pt will recall 3/3 spinal precautions without cues -SA Time Frame (Problem Specific Goal 1, OT) short term goal (STG);5 days -SA Progress/Outcome (Problem Specific Goal 1, OT) new goal - Row Name 02/04/25 1114 Therapy Assessment/Plan (OT) Planned Therapy Interventions (OT) activity tolerance training;adaptive equipment training;BADL retraining;functional balance retraining;occupation/activity based interventions;patient/caregiver educa tion/training;ROM/therapeutic exercise;strengthening exercise;transfer/mobility retraining - User Metcalf (r) = Recorded By, (t) = Taken By, (c) = Cosigned By Initials Name Provider Type SA Winter Burton, LUISA Occupational Therapist Clinical Impression Row Name 02/04/25956 Pain Assessment Pretreatment Pain Rating 210 -SA Posttreatment Pain Rating 6/10 -SA Pain Location back -SA Pain Side/Orientation lower -SA Pain Management Interventions activity modification encouraged;exercise or physical activity utilized;positioning techniques utilized;nursing notified - Response to Pain Interventions activity participation with tolerable pain -[facility] Name 02/04/25956 Plan of Care Review Plan of Care [...] recommends SNF at discharge. - Row Name 02/04/25956 Therapy Assessment/Plan (OT) Rehab Potential (OT) good -SA Criteria for Skilled Therapeutic Interventions Met (OT) yes;meets criteria;skilled treatment is necessary - Therapy Frequency (OT) daily -SA Predicted Duration of Therapy Intervention (OT) 10 days - Row Name 02/04/25956 Therapy Plan Review/Discharge Plan (OT) Anticipated Discharge Disposition (OT) alf facility - Row Name 02/04/2557 Vital Signs Pre Systolic BP Rehab 120 -SA Pre Treatment Diastolic BP 66 -SA Pre SpO2 (%) 96 -SA O2 Delivery Pre Treatment room air -SA Pre Patient Position Supine -SA Row Name 02/04/25 0957 Positioning and Restraints Pre-Treatment Position in bed - Post Treatment Position chair -SA In Chair notified nsg;reclined;call light within reach;encouraged to call for assist;exit alarm on;with family/caregiver;waffle cushion;legs elevated - User Metcalf (r) = Recorded By, (t) = Taken By, (c) = Cosigned By Initials Name Provider Type Winter Burton OT Occupational Therapist Outcome Measures Row Name [...] -SA AM-PAC 6 Clicks Score (OT) 20 - Row Name 02/04/25 111 Functional Assessment Outcome Measure Options AM-PAC 6 Clicks Daily Activity (OT) - User Metcalf (r) = Recorded By, (t) = Taken By, (c) = Cosigned By Initials Name Provider Type Winter Burton OT Occupational Therapist Occupational Therapy Education Title: PT OT BUSINESS PROGRAMMER Therapies (In Progress) Topic: Occupational Therapy (In Progress) Point: ADL training (In Progress) Learning Progress Summary Patient Acceptance, E,D, NR by at 02/04/2025 1116 Point: Precautions (In Progress) Learning Progress Summary Patient Acceptance, E,D, NR by at 02/04/2025 111 Point: Body mechanics (In Progress) Learning Progress Summary Patient Acceptance, E,D, NR by at 02/04/2025 1116 User Metcalf Initials Effective Dates Name Provider Type [facility] 12/18/24 - Winter Burton OT Occupational Therapist [...] Time Calculation- OT OT Start Time 0835 -SA OT Received On 02/04/25 -SA OT Goal Re-Cert Due Date 02/14/25 -SA Timed Charges 34337 - OT Self Care/Mgmt Minutes 15 -SA [...] Description Service Date Service Provider Modifiers Qty [id number] OT SELF CARE/MGMT/TRAIN EA 15 MIN 02/04/2025 Winter Burton OT GO 1 [id number] HC-OT EVAL MOD COMPLEXITY 5 02/04/2025 Winter Burton OT 1 Winter Burton OT 02/04/2025 * Therapy Evaluation - Amaris Reyes, PT - 02/03/2025 3:35 PM EDT Images from the original note were not included. Patient Name: Gladys Meneds : 1945 Today's Date: 02/03/2025 Admit Date: 02/03/2025 Visit Dx: No diagnosis found. Patient Active Problem List Diagnosis Spondylolisthesis at L4-L5 level HTN (hypertension) Hyperlipidemia GERD (gastroesophageal reflux disease) S/P lumbar spinal fusion, decompression Obesity Acute postoperative pain Acute blood loss anemia, asymptomatic Lumbar stenosis with neurogenic claudication Past Medical History: Diagnosis Date Colitis Elevated cholesterol GERD (gastroesophageal reflux disease) History of transfusion [facility], no reaction Hyperlipidemia Hypertension Past Surgical History: Procedure Laterality Date BREAST BIOPSY Right multiple COLONOSCOPY HEMORRHOIDECTOMY LUMBAR DISCECTOMY FUSION INSTRUMENTATION N/A 05/16/2022 Procedure: LUMBAR DECOMPRESSION WITH FUSION INSTRUMENTATION WITH PEDICLE SCREWS, CAGE AND ALLOGRAFTL4-5; Surgeon: Vini Peterson MD; Location: [facility]; Service: Orthopedic Spine; Laterality: N/A; MASTOIDECTOMY Left x3 TUBAL ABDOMINAL LIGATION General Information Row Name 02/03/25 1635 Physical Therapy Time and Intention Document Type [...] Cosigned By Initials Name Provider Type ND Dauterman, Amaris, PT Physical Therapist Mobility Row Name 02/03/25 1637 Bed Mobility Bed Mobility supine-sit;sit-supine -ND Supine-Sit [place] (Bed Mobility) minimum assist (75% patient effort);nonverbal cues (demo/gesture);verbal cues -ND Sit-Supine [place] (Bed Mobility) minimum assist (75% patient effort);nonverbal cues (demo/gesture);verbal cues -ND Assistive Device (Bed Mobility) bed rails;head of bed elevated -ND Comment, (Bed Mobility) Increased time for task secondary to pain. Min-A with cues for log roll technique. -ND Row Name 02/03/25 1637 Sit-Stand Transfer Sit-Stand [place] (Transfers) minimum assist (75% patient effort);verbal cues;nonverbal cues (demo/gesture) -ND Assistive Device (Sit-Stand Transfers) walker, front-wheeled -ND Comment, (Sit-Stand Transfer) Cues for hand placement. Increased time for upright posture. -ND Row Name 02/03/25 1637 02/03/25 1625 Gait/Stairs (Locomotion) [place] Level (Gait) minimum assist (75% patient effort);1 [...] Rahman PT Physical Therapist Obj/Interventions Row Name 02/03/25 [...] Reyes, PT Physical Therapist Goals/Plan Row Name 02/03/25 164 Bed Mobility Goal 1 (PT) Activity/Assistive Device (Bed Mobility Goal 1, PT) sit to supine/supine to sit -ND [place] Level/Cues Needed (Bed Mobility Goal 1, PT) modified independence -ND Time Frame (Bed Mobility Goal 1, PT) short term goal (STG);3 days -ND Row Name 02/03/25 164 Transfer Goal 1 (PT) Activity/Assistive Device (Transfer Goal 1, PT) wkb-vd-vtjxr/jsqat-pc-hsa;gjs-si-cmbmb/euepw-pb-lla-ND [place] Level/Cues Needed (Transfer Goal 1, PT) modified independence -ND Time Frame (Transfer Goal 1, PT) manager long term care goal (LTG);5 days -ND Row Name 02/03/25 164 Gait Training Goal 1 (PT) Activity/Assistive Device (Gait Training Goal 1, PT) gait (walking locomotion);increase endurance/gait distance;decrease fall risk -ND [place] Level (Gait Training Goal 1, PT) modified independence -ND Distance (Gait Training Goal 1, PT) 250 -ND Time Frame (Gait Training Goal 1, PT) mcc goal (LTG);5 days -ND Row Name 02/03/251642 Balance Goal 1 (PT) Activity/Assistive Device (Balance Goal) with functional mobility activities -ND [place] Level/Cues Needed (Balance Goal 1, PT) modified independence -ND Time Frame (Balance Goal 1, PT) long-term goal (LTG);5-7 days -ND Row Name 02/03/251642 Stairs Goal 1 (PT) Activity/Assistive Device (Stairs Goal 1, PT) ascending stairs;descending stairs -ND [place] Level/Cues Needed (Stairs Goal 1, PT) modified independence -ND Number of Stairs (Stairs Goal 1, PT) 1 -ND Time Frame (Stairs Goal 1, PT) manager long term care goal (LTG);5 days -ND Row Name 02/03/251642 Therapy Assessment/Plan (PT) Planned Therapy Interventions (PT) balance training;bed mobility training;gait training;patient/family education;home exercise program;transfer training;postural re-education;ROM (range of motion);stair training;strengthening -ND User Metcalf (r) = Recorded By, (t) = Taken By, (c) = Cosigned By Initials Name Provider Type ND Amaris Reyes, PT Physical Therapist Clinical Impression Row Name 02/03/251640 Pain Pretreatment Pain Rating 5/10 -ND Posttreatment Pain Rating 9/10 -ND Pain Location back -ND Pain Side/Orientation generalized -ND Pain Management Interventions positioning techniques utilized;exercise or physical activity utilized;activity modification encouraged;nursing notified -ND Response to Pain Interventions activity participation with increased pain -ND Row Name 02/03/251640 Plan of Care Review Plan of Care [...] and overall functional mobility. -ND Row Name 02/03/251640 Therapy Assessment/Plan (PT) Patient/Family Therapy Goals Statement [...] Provider Type Amaris Rahman PT Physical Therapist Outcome Measures Row Name [...] Therapist Physical Therapy Education Title: PT OT BUSINESS PROGRAMMER Therapies (In Progress) Topic: Physical Therapy (In Progress) Point: Mobility training (Done) Learning Progress Summary Patient Acceptance, E, VU by ND at 02/03/2025 1644 Point: Home exercise program (Not Started) Learner Progress: Not documented in this visit. Point: Body mechanics (Done) Learning Progress Summary Patient Acceptance, E, VU by ND at 02/03/2025 1644 Point: Precautions (Done) Learning Progress Summary Patient Acceptance, E, VU by ND at 02/03/2025 [...] Time 1535 -ND PT Received On 02/03/25 PT Goal Re-Cert Due Date 02/13/25 - Untimed Charges PT Eval/Re-eval Minutes 49 -ND Total Minutes Untimed Charges Total Minutes 49 -ND Total Minutes 49 -ND User Metcalf (r) = Recorded By, (t) = Taken By, (c) = Cosigned By Initials Name Provider Type ND Amaris Reyes PT Physical Therapist Therapy Charges for Today Code Description Service Date Service Provider Modifiers Qty [id number] HC PT EVAL MOD COMPLEXITY 4 02/03/2025 Amaris Reyes, PT GP 1 [id number] HC PT THER SUPP EA 15 MIN 02/03/2025 Amaris Reyes, PT GP 3 PT G-Codes Outcome Measure Options: AM-PAC 6 Clicks Basic Mobility (PT) AM-PAC 6 Clicks Score (PT): 17 PT Discharge Summary Anticipated Discharge Disposition (PT): alf facility Amaris Reyes, PT 02/03/2025 documented in this encounter Plan [...] EDT Special Needs DEPUY WITH CEMENT AUGMENTATION, DIRECTOR OF SPECIAL EVENTS, VIPIN TABLE, CELL SAVER (CONFIRMED WITH MATILDE GEORGES 01/15), C-ARM, O-ARM STEALTH * TYPE AND SCREEN STAT 02/03/2025 6:46 AM EDT SCANNED EKG 02/03/2025 SCANNED - IMAGING 02/03/2025 SCANNED - LABS 02/03/2025 documented in this encounter Results * Potassium (02/05/2025 6:59 AM EDT) Potassium 3.9 3.5 - 5.2 mmol/L 02/05/2025 8:25 AM EDT [facility] Blood Venipuncture / Unknown 02/05/2025 6:59 AM EDT 02/05/2025 7:51 AM EDT us Pavithra Oakes MD LAB BLOOD ORDERABLES Final Result [facility]
[address] [place] [address], * (ABNORMAL) Basic Metabolic Panel (02/04/2025 6:15 AM EDT) Glucose 101(H) 65 - 99 mg/dL 02/04/2025 7:01 AM EDT [facility] BUN 11.2 8.0 - 23.0 mg/dL 02/04/2025 7:01 AM EDT [facility] Creatinine 0.87 0.57 - 1.00 mg/dL 02/04/2025 7:01 AM EDT [facility] Sodium 138 136 - 145 mmol/L 02/04/2025 7:01 AM EDT [facility] Potassium 5.4(H) 3.5 - 5.2 mmol/L 02/04/2025 7:01 AM EDT [facility] Chloride 105 98 - 107 mmol/L 02/04/2025 7:01 AM EDT [facility] [facility] CO2 27.0 22.0 - 29.0 mmol/L 02/04/2025 7:01 AM EDT [facility] Calcium 9.5 8.6 - 10.5 mg/dL 02/04/2025 7:01 AM [facility] BUN/Creatinine Ratio 12.9 7.0 - 25.0 02/04/2025 7:01 AM EDT [facility] Anion Gap 6.0 5.0 - 15.0 mmol/L 02/04/2025 7:01 AM [facility] eGFR 68.7 >60.0 mL/min/1.7 3 02/04/2025 7:01 AM [facility] Blood Venipuncture / Unknown 02/04/2025 6:15 AM EDT 02/04/2025 6:34 AM EDT [facility] - 02/04/2025 7:01 AM EDT [...] does not include race as a factor us Pavithra Oakes MD LAB BLOOD ORDERABLES Final Result Performing Organization Address [facility] Co de Phone Number [facility]
[address] [place] [address], * (ABNORMAL) Hemoglobin & Hematocrit, Blood (02/04/2025 6:15 AM EDT) Hemoglobin 9.7(L) 12.0 - 15.9 g/dL 02/04/2025 6:37 AM EDT [facility] Hematocrit 31.1(L) 34.0 - 46.6 % 02/04/2025 6:37 AM EDT [facility] Blood Venipuncture / Unknown 02/04/2025 6:15 AM EDT 02/04/2025 6:33 AM EDT us Vini Peterson MD LAB BLOOD ORDERABLES Final Res ult [facility]
[address] [place] [address], * FL C Arm During Surgery (02/03/2025 12:08 PM EDT) Narrative SYSTEMGENERATED, DOCUMENTATION - 02/03/2025 12:08 PM EDT This procedure was auto-finalized with no dictation required. us Vini Peterson MD IMG FLUOROSCOPY ORDERABLES Fin al Result * Type & Screen (02/03/2025 6:46 AM EDT) ABO Type A 02/03/2025 7:43 AM EDT [facility] RH type Positive 02/03/2025 7:43 AM EDT [facility] Antibody Screen Negative 02/03/2025 7:43 AM EDT [facility] T&S Expiration Date 02/06/2025 11:59:59 PM 02/03/2025 7:43 AM EDT [facility] Blood Line / Unknown 02/03/2025 6: 46 AM EDT 02/03/2025 6:52 AM EDT Vini Peterson MD BLOOD BANK TEST ORDERABLES Sanchez antonina Result - Final [facility]
[address] [place] [address], * LABS SCANNED (02/03/2025) Result [facility] LAB BLOOD ORDERABLES Final Re sult * IMAGING SCANNED (02/03/2025) Anatomical Region Laterality Modality Radiographic Carmella ging Result [facility] IMG DIAGNOSTIC IMAGING ORDERA BLES Final Result * ECG Scan (02/03/2025) [facility] ECG ORDERABLES Final Result documented in this encounter Visit Diagnoses Not on filedocumented in this encounter Admitting Diagnoses Diagnosis Lumbar [...] of 7-10, CPOT 5-8 acetaminophen (TYLENOL) tablet 650 mg 650 mg, [...] movement after 12 hours. Hold for diarrhea bupivacaine-EPINEPHrine PF (MARCAINE w/EPI) 0.25% -[id number] injection As Needed, Starting on Mon02/03/25 at 0813 Given 02/03/2025 8:13 AM EDT 30 mL chlorhexidine (IRRISEPT) 0.05 % in sterile water As Needed, Starting on Mon02/03/25 at 0813 Given 02/03/2025 8:13 AM EDT 45 0 mL cyclobenzaprine (FLEXERIL) tablet 10 mg 10 mg, Oral, 3 Times Daily PRN, Muscle Spasms, Starting on Mon02/03/25 at 1732 Given 02/06/2025 11:36 PM EDT 10 m g Given 02/04/2025 4:50 PM EDT 10 mg Given 02/04/2025 5:02 AM EDT 10 mg gabapentin (NEURONTIN) capsule 300 mg 300 mg, Oral, 2 Times Daily, First dose on Mon02/03/25 at 2100, (JANY) Given 02/07/2025 8:05 AM EDT 300 mg Given 02/06/2025 8:48 PM EDT 300 mg Given 02/06/2025 8:28 AM EDT 300 mg gelatin absorbable 1 each, thrombin 5,000 Units mixture As Needed, Starting on Mon02/03/25 at 0813 Given 02/03/2025 8:13 AM EDT labetalol (NORMODYNE,TRANDATE) injection 10 mg 10 mg, [...] Given 02/05/2025 8:03 AM EDT 40 mg sennosides-docusate (PERICOLACE) 8.6-50 MG per tablet 2 tablet 2 tablet, Oral, 2 Times Daily PRN, Constipation, Starting on Mon02/03/25 at 1732, Start bowel management regimen if patient has not had a bowel movement after 12 hours. sodium chloride (NS) irrigation solution As Needed, Starting on Mon02/03/25 at 0814 Given 02/03/2025 8:14 AM EDT 1,000 mL sterile water irrigation solution As Needed, Starting on Mon02/03/25 at 0813 Given 02/03/2025 8:13 AM EDT 1,000 mL documented in this encounter Active and Recently Administered Medications Times are shown in EDT. Scheduled Medication Order 02/05/2025 02/06/2025 02/07/2025 gabapentin (NEURONTIN) capsule 300 mg 300 mg, Oral, 2 Times Daily, First dose on Mon02/03/25 at 2100, (JANY) 08 (Given - Provider: Loren Floyd RN)2023 (Given - Provider: Essence Hernandez RN) 827 (Given - Provider: Loren Floyd RN)2047 (Given - Provider: Essence Hernandez RN) 0805 (Given - Provider: Ivana Espinoza RN) pantoprazole (PROTONIX) EC tablet 40 mg 40 mg, Oral, 2 Times Daily Before Meals, First dose on Mon02/03/25 at 1830, Swallow whole; do not crush, split, or chew. 0803 (Given - Provider: Loren Floyd RN)1653 (Given - Provider: Loren Floyd RN) 0828 (Given - Provider: Loren Floyd RN)1652 (Given - Provider: Loren Floyd RN) 0805 (Given - Provider: Ivana Espinoza RN) pravastatin (PRAVACHOL) tablet 40 mg 40 mg, Oral, Daily, First dose on Mon02/03/25 at 2100, Avoid grapefruit juice. 0803 (Given - Provider: Loren Floyd RN) 0828 (Given - Provider: Loren Floyd RN) 0805 (Given - Provider: Ivnaa Espinoza RN) sodium chloride 0.9 % flush 3 mL (CANCELED) 3 mL, Intravenous, Every 12 Hours Scheduled, First dose on Mon02/03/25 at 2100 0803 (Given - Provider: Loren Floyd RN) PRN [...] See Alt - Provider: Ivana Espinoza RN) oxyCODONE (ROXICODONE) immediate release tablet 5 mg(Linked [...] documented as of this encounter Care Teams Shoulder Sawyer Relationship Specialty Start Date End Date Placido Mercado MD [address] [place] [address] [place] [address] PCP - General Family Medicine 01/29/25 documented as of this encounter
--- OUTSIDE RECORDS SUMMARY | 2025-02-03 07:37 | XMS_ITS | Encounter Summary ---
Author Organization [facility] Address [address] [place] [address] Care Team Providers Care Gravity Prospecting Operator Helper Name Role Phone Placido Mercado MD Primary Care Provider [phone] Reason for Visit * Auth/Cert Specialty Diagnoses / Procedures Referred By Contac t Referred To Contact Procedures ME ARTHRODESIS COMBINED TQ 1NTRSPC LUMBAR L 4-5 REVISION DECOMPRESSION WITH REVISED FUSION WITH PEDICLE SCREWS, CEMENT AUGMENTATION AND POSSIBLE EXTENSION OF FUSION Referral ID Status Reason Start Date Expiration Date Visits Re quested Visits Authorized [id number] 1 1 Encounter Details Date Type Department Care Team (Late st Contact Info) Description 02/03/2025 7:37 AM EDT Anesthesia Event [facility] OR [address] [place] [address] Vini Schwartz MD [address] [place], [place] [id number] Anesthesia Record Procedure Summary Procedure Name Responsible Anesthesiologist Anesthesia Start Time Anesthesia Stop Time REVISION DECOMPRESSION WITH REVISED FUSION WITH PEDICLE SCREWS WITH CEMENT AUGMENTATION, AND HARDWARE REVISION L4-5 (Spine Lumbar) Vini Schwartz MD 02/03/25 0737 02/03/25 1302 Events Date Time Event Comment 02/03/2025 0647 0730 AN Equip Check 0737 An Start The patient was reevaluated immediately before moderate or deep sedation use and before anesthesia induction. 0737 An Start Data 0740 An Induction 0742 An Intubation 1254 An Extubation 1302 Handoff to RN The following has been completed: 1. Identification of Patient, grajeda family member(s) or patient surrogate 2. Identification of the responsible Practitioner (primary service) 3. Discussion of the pertinent/attainable medical history 4. Discussion of the surgical/procedure course (procedure, reason for surgery, procedure performed) 5. Intraoperative anesthetic management and issue/concerns to include things such as airway, hemodynamics, narcotic, sedation level and paralytic management and intravenous fluids/blood products and urine output during the procedure 6. Expectations/Plans for the early post-procedure period to include things such as anticipated course (anticipatory guidance), complications, need for laboratory or ECG and medication administration 7. Opportunity for questions and acknowledgment of understanding of report from the receiving PACU/ICU team 1302 An Stop 1302 an stop data Meds Name Total ceFAZolin 2000 mg IVPB in 100 mL NS (MBP ) 2,000 mg propofol (DIPRIVAN) 10 mg/mL injection 1 50 mg rocuronium (ZEMURON) 50 mg/5 mL 110 mg lidocaine (XYLOCAINE) injection 1% 50 mg tranexamic acid 1000 mg in 100 mL 0.7% N aCl infusion (premix) 347.15 mg Tranexamic Acid 800 mg in sodium chlorid e 0.9 % 100 mL 800 mg phenylephrine (PETER-SYNEPHRINE) 10 mg/mL injection 300 mcg dexamethasone (DECADRON) 4 mg/mL injecti on 8 mg ondansetron (ZOFRAN) 2 mg/mL 4 mg phenylephrine (PETER-SYNEPHRIN E) 10 mg in sodium chloride 0.9 % 100 mL infusion 2.08 mg ceFAZolin 1 g 2 g fentaNYL citrate (PF) 100 MCG/2ML 200 mc g lactated ringers infusion 2,500 mL albumin human 5 % 500 mL * Agents Name O2 N2O Air Sevoflurane Inspired Sevoflurane * Blood No blood administrations on file. Lines, Drains, and Airways Type Details Placement Removal Wound 02/03/25; 0809; lowe r; lumbar spine; Surgical; Closed Surgi 02/03/25 0809 by Kirti Cheng, chief of anesthesiology 05/16/22; 1057; N; lumbar spine; Incision; 02/03/25; 0820 05/16/22 1057 by Valorie Martinez RN 02/03/25 0820 by Kirti Cheng, ANN Peripheral IV Placement Date: 02/03/25; Placement Time: 644; Catheter Size: 20 G; Orientation: Left, Posterior; Location: Wrist; Site Prep: Chlorhexidine; Local Anes: Injectable; Technique: Anatomical landmarks; Inserted by: Erik Noriega; Insertion Attempts: 1; Patient Tolerance: Tolerated well; Removal Date: 02/05/25; Removal Time: 1035 02/03/25 0645 by Jes Noriega RN 02/05/25 1035 by Loren Floyd RN Urethral Catheter Placement Date: 02/03/25; Placement Time: 0740; Inserted by: ANN Cotto; Type: Double-lumen; Size: 16 Fr.; Balloon Size: 10 mL; Urine Returned: Yes; Removal Date: 02/03/25; Removal Time: 1245 02/03/25 0740 by Kirti Cheng RN 02/03/25 1245 by Kirti Cheng RN ETT Placement Date: 02/03/25; Placement Time: 0742 (created via procedure documentation); Blade Size: 2; Location: Oral; Removal Date: 02/03/25; Removal Time: 1254 02/03/25 0742 by David Mcmillan CRNA 02/03/25 1254 by David Mcmillan CRNA Closed/Suction Drain 02/03/25; 1211; Posterior; Back; Other (Comment) (HEMOVAC); 10 Fr.; Per order 02/03/25 1211 by Kirti Cheng RN 02/05/25 0816 by Loren Floyd RN documented in this encounter Social History Tobacco Use Types Packs/Day Years Used Date Smoking Tobacco: Former Smokeless Tobacco: Never Alcohol Use Standard Drinks/Week Comments Never 0 (1 standard drink = 0.6 oz pur e alcohol) [facility] Utilities Answer Date Recorded In the past 12 months has [employer], gas, oil, or water [employer] threatened to shut off services in your [...] care, and heating? Not very hard 02/04/2025 [facility] Occupational Stress Questionnaire Answer [...] GED or equivalent No 02/04/2025 Preferred Language Luxembourger 02/04/2025 PHQ-2 Answer Date Recorded Patient Health Questionnaire-2 Score 0 02/04/2025 Comments No Sex and Gender Information Value Date Recorded Sex Assigned at Not on file Legal Sex Female 2:30 PM EDT Gender Identity Not on file Sexual Orientation Not on file documented as of this encounter Functional Status * Audit-C Score [...] 6:30 AM EDT Jes Noriega RN * [place] Suicide Severity Rating Scale (Screener/Recent Self-Report) Question Answer Date of Assessment Author 6. Suicidal Behavior (Lifetime) No 6:30 AM EDT Jes Noriega RN * Question Answer Date of Assessment Author Little interest or pleasure in doing things Not at all 02/04/2025 12:30 PM EDT David Noel R R N Feeling down, depressed, or hopeless Not at all 02/04/2025 12:30 PM EDT David Noel R N documented as of this encounter OR Notes * Anesthesia Postprocedure Evaluation - David Mcmillan CRNA - 02/03/2025 1:02 PM EDT Patient: Gladys Grajeda Procedure Summary Date: 02/03/25 Room / Location: [facility] OR [address] [place] [address] [facility] OR Anesthesia Start: 736 Anesthesia Stop: 1301 Procedure: L 4-5 REVISION DECOMPRESSION WITH REVISED FUSION WITH PEDICLE SCREWS WITH CEMENT AUGMENTATION, AND HARDWARE REVISION (Spine Lumbar) Diagnosis: Surgeons: Vini Peterson MD Provider: Vini Schwartz MD Anesthesia Type: general ASA Status: 2 Anesthesia Type: general Vitals No vitals data found for the desired time range. Post Anesthesia Care and Evaluation Patient location during evaluation: PACU Patient participation: complete - patient participated Level of consciousness: awake Pain score: 0 Pain management: adequate Airway patency: patent Anesthetic complications: No anesthetic complications PONV Status: none Cardiovascular status: acceptable and stable Respiratory status: nasal cannula, unassisted, acceptable, spontaneous ventilation and oral airway Hydration status: acceptable * Anesthesia Procedure Notes - Davdi Mcmillan CRNA - 02/03/2025 8:05 AM EDT Associated Order(s): Airway Airway Reason: elective Date/Time: 02/03/2025 7:42 AM Airway not difficult General Information and Staff Patient location during procedure: OR PAINT MIXER/CAA: David Mcmillan CRNA Indications and Patient Condition Indications for airway management: airway protection Preoxygenated: yes MILS not maintained throughout Mask difficulty assessment: 1 - vent by mask Final Airway Details Final airway type: endotracheal airway Successful airway: ETT Cuffed: yes Successful intubation technique: direct laryngoscopy Endotracheal tube insertion site: oral Blade: Rosa Blade size: 2 ETT size (mm): 7.0 Cormack-Lehane Classification: grade I - full view of glottis Placement verified by: chest auscultation and capnometry Cuff volume (mL): 5 Measured from: lips ETT/EBT to lips (cm): 21 Number of attempts at approach: 1 Assessment: lips, teeth, and gum same as pre-op and atraumatic intubation Additional Comments Negative epigastric sounds, Breath sound equal bilaterally with symmetric chest rise and fall * Anesthesia Preprocedure Evaluation - Vini Schwartz MD - 02/03/2025 6:44 AM EDT Anesthesia Evaluation Patient summary reviewed and Nursing notes reviewed NPO Solid Status: > 8 hours NPO Liquid Status: > 8 hours Airway Mallampati: I TM distance: >3 FB Neck ROM: full No difficulty expected Dental (+) upper dentures Pulmonary - normal exam Cardiovascular Exercise tolerance: good (4-7 METS) Rhythm: regular Rate: normal Neuro/Psych GI/Hepatic/Renal/Endo Musculoskeletal Abdominal 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 CODE STATUS: documented in this encounter Plan of Treatment Not on file documented as of this encounter Goals Goal Patient Goal Type Associated Problems Recent Progress Patient-Stated? Author Autogenerat ed Goal Care Plan Autogenerated Problem No Shan Huff documented as of this encounter Procedures Procedure Name Priority Date/Time Associated Diagnosis Comments ANESTHESIA INTUBATION Routine 02/03/2025 8:05 AM EDT documented in this encounter Results * BH AN ETT AIRWAY (02/03/2025 8:05 AM EDT) Narrative David Mcmillan CRNA - 02/03/2025 8:05 AM EDT David Mcmillan CRNA 02/03/2025 8:06 AM Airway Reason: elective Date/Time: 02/03/2025 7:42 AM Airway not difficult General Information and Staff Patient location during procedure: OR PAINT MIXER/CAA: David Mcmillan CRNA Indications and Patient Condition Indications for airway management: airway protection Preoxygenated: yes MILS not maintained throughout Mask difficulty assessment: 1 - vent by mask Final Airway Details Final airway type: endotracheal airway Successful airway: ETT Cuffed: yes Successful intubation technique: direct laryngoscopy Endotracheal tube insertion site: oral Blade: Rosa Blade size: 2 ETT size (mm): 7.0 Cormack-Lehane Classification: grade I - full view of glottis Placement verified by: chest auscultation and capnometry Cuff volume (mL): 5 Measured from: lips ETT/EBT to lips (cm): 21 Number of attempts at approach: 1 Assessment: lips, teeth, and gum same as pre-op and atraumatic intubation Additional Comments Negative epigastric sounds, Breath sound equal bilaterally with symmetric chest rise and fall us Vini Schwartz MD ANESTHESIA ORDERABLES Final Re sult documented in this encounter Visit Diagnoses Not on filedocumented in this encounter Administered Medications Inactive Administered Medications - up to 3 most recent administrations Medication Order MAR Action Action Date Dose Rate Site albumin human 5 % solution Intravenous, Administer over 30 Minutes, Continuous PRN, Starting on Mon02/03/25 at 0848 New Bag 02/03/2025 9:04 AM EDT New Bag 02/03/2025 8:48 AM EDT ceFAZolin (ANCEF) injection Intravenous, As Needed, Starting on Mon02/03/25 at 1055 Given 02/03/2025 10:55 AM EDT 2 g ceFAZolin 2000 mg IVPB in 100 mL NS (MBP) 2,000 mg, Intravenous, Administer over 30 Minutes, Once, On Mon02/03/25 at 0555, For 1 dose, Caution: Look alike/sound alike drug alert, Indications: Surgical ProphylaxisIndications:Surgical Prophylaxis New 02/03/2025 7:47 AM EDT 2,000 mg dexAMETHasone (DECADRON) injection Intravenous, As Needed, Starting on Mon02/03/25 at 0806 Given 02/03/2025 8:06 AM EDT 8 mg fentaNYL citrate (PF) (SUBLIMAZE) injection Intravenous, As Needed, Starting on Mon02/03/25 at 1225 Given 02/03/2025 12:57 PM EDT 100 mcg Given 02/03/2025 12:25 PM EDT 100 mcg lactated ringers infusion 9 mL/hr, Intravenous, Continuous, Starting on Mon02/03/25 at 0607, For 1 day, May switch to NS IV at KVO if renal / if indicated New Bag 02/03/2025 10:55 AM EDT New Bag 02/03/2025 8:48 AM EDT Currently Infusing 02/03/2025 7:37 AM EDT 9 mL/ hr lidocaine (XYLOCAINE) 1 % injection Injection, As Needed, Starting on Mon02/03/25 at 0740 Given 02/03/2025 7:40 AM EDT 50 mg ondansetron (ZOFRAN) injection Intravenous, As Needed, Starting on Mon02/03/25 at 1225 Given 02/03/2025 12:25 PM EDT 4 mg phenylephrine (PETER-SYNEPHRINE) 10 mg in sodium chloride 0.9 % 100 mL infusion Intravenous, Continuous PRN, Starting on Mon02/03/25 at 0842 New Bag 02/03/2025 8:42 AM EDT 0.2 mcg/kg/min 9.252 mL/hr phenylephrine (PETER-SYNEPHRINE) injection Intravenous, As Needed, Starting on Mon02/03/25 at 0803 Given 02/03/2025 8:28 AM EDT 200 mcg Given 02/03/2025 8:03 AM EDT 100 mcg propofol (DIPRIVAN) injection Intravenous, As Needed, Starting on Mon02/03/25 at 0740 Given 02/03/2025 7:40 AM EDT 150 mg rocuronium (ZEMURON) injection Intravenous, As Needed, Starting on Mon02/03/25 at 0740 Given 02/03/2025 10:39 AM EDT 20 mg Given 02/03/2025 9:07 AM EDT 20 mg Given 02/03/2025 8:19 AM EDT 20 mg tranexamic acid 1000 mg in 100 mL 0.7% NaCl infusion (premix) 1 mg/kg/hr 78.6 kg (7.86 mL/hr), Intravenous, Once, On 6/2/25 at 0630, For 1 dose, Infuse at above rate until end of case. New Bag 02/03/2025 8:05 AM EDT 1 mg/kg/hr 7.86 mL/hr Tranexamic Acid 800 mg in sodium chloride 0.9 % 100 mL 800 mg, Intravenous, at 216 mL/hr, Administer over 30 Minutes, Once, On Mon02/03/25 at 0630, For 1 dose New Bag 02/03/2025 7:55 AM EDT 800 mg documented in this encounter Additional Health Concerns Active Problems Noted Date Diagnosed Date Autogenerated Problem 03/06/2025 documented as of this encounter Care Teams Gravity Prospecting Operator Helper Relationship Specialty Start Date End Date Placido Mercado MD [address] [place] [address] PCP - General Family Medicine 01/29/25 documented as of this encounter
--- OUTSIDE RECORDS SUMMARY | 2025-02-16 18:44 | XMS_ITS | Encounter Summary ---
[facility] Address [address] [place] [address] Care Team Providers Care Manager Client Name Role Phone Placido Mercado MD Primary Care Provider Reason for Referral * Pain Management (Routine) - Authorized Specialty Diagnoses / Procedures Referred By Ryan garcia Referred To Contact Pain Medicine Diagnoses Chronic radicular lumbar pain Procedures CT OFFICE/OUTPATIENT NEW MODERATE MDM 45 MINUTES Alexi Mattson MD [address] [place] [address] Phone: tel: fax: Matteo Curran MD [address] [address] Phone: tel: fax: Referral ID Status Reason Start Date Expiration Date Visits Requested Visits Authorized [id number] Authorized Specialty Services Required 02/16/2025 05/18/2026 1 1 Reason for Visit * Reason Comments Back Pain Encounter Details Date Type Department Care Team (Late st Contact Info) Description 02/16/2025 6:44 PM EDT - 02/17/2025 12:04 AM EDT Emergency [facility] [address] [id number] Alexi Mattson MD [address] [place] [address] [address] [place] [address] Chronic radicular lumbar pain (Primary Dx) Discharge Disposition: Home or Self Care Social History Tobacco Use Types Packs/Day Years Used Date Smoking Tobacco: Former Smokeless Tobacco: Never Alcohol Use Standard Drinks/Week Comments Never 0 (1 standard drink = 0.6 oz pur e alcohol) [facility] Utilities Answer Date Recorded In the past 12 months has th e [employer], gas, oil, or water [employer] threatened to shut off services in your [...] care, and heating? Not very hard 02/04/2025 [facility] [place] of Occupat ional Health - Occupational Stress [...] GED or equivalent No 02/04/2025 Preferred Language Eritrean 02/04/2025 PHQ-2 Answer Date Recorded Patient Health [...] 6:50 PM EDT Ankita Graham RN * [place] Suicide Severity Rating Scale (Screener/Recent Self-Report) Question [...] through Care Everywhere. * Chronic Pain Adult (Eritrean) documented in this encounter Medications at Time [...] if polyethylene glycol is ineffective). 02/07/2025 Coenzyme I72-Ftxfrbm E (QUNOL ULTRA COQ10 PO) Take 100 [...] had this back pain since she was [facility] following a procedure with Dr. Peterson. Pain originates from her right buttocks and radiates down her leg. It occurs intermittently. Usually will dissipate on its own. Today it developed and has not subsided. She was given 80 mg of ketamine IM by EMS on her way to the hospital from her subacute rehab facility-[facility]. She states the pain improved [...] GERD (gastroesophageal reflux disease) History of transfusion [facility], no reaction Hyperlipidemia Hypertension Allergies: Patient has no known allergies. Past Surgical History: Procedure Laterality Date BREAST BIOPSY Right multiple COLONOSCOPY HEMORRHOIDECTOMY LUMBAR DISCECTOMY FUSION INSTRUMENTATION N/A 05/16/2022 Procedure: LUMBAR DECOMPRESSION WITH FUSION INSTRUMENTATION WITH PEDICLE SCREWS, CAGE AND ALLOGRAFTL4-5; Surgeon: Vini Peterson MD; Location: [facility]; Service: Orthopedic Spine; Laterality: N/A; LUMBAR DISCECTOMY FUSION INSTRUMENTATION N/A 02/03/2025 Procedure: REVISION DECOMPRESSION WITH REVISED FUSION WITH PEDICLE SCREWS WITH CEMENT AUGMENTATION,AND HARDWARE REVISION L4-5; Surgeon: Vini Peterson MD; Location: [facility]; Service: Orthopedic Spine; Laterality: N/A; MASTOIDECTOMY [...] * Telemetry Scan (02/16/2025 7:07 PM EDT) [facility] New Onbase ECG ORDERABLES Final Result * Telemetry Scan (02/16/2025 6:56 PM EDT) [facility] New Onbase ECG ORDERABLES Final Result documented [...] documented as of this encounter Care Teams Manager Client Relationship Specialty Start Date End Date Placido Mercado MD [address] [place] [address] PCP - General Family Medicine 01/29/25 documented as of this encounter
[2025-03-28] VITALS (41 sets, daily range): BP systolic 110–158; BP diastolic 68–102; PULSE 72–133; RESP 11–25; TEMP 36.7–37.6; O2SAT 93–100; BMI 30.8
--- NOTE | 2025-03-28 10:15 | HMH.EDGENADL ---
Discharge Plan Disposition Patient Disposition: Home, Self-Care Condition: Good Prescriptions Prescriptions: No Action coenzyme Q10 100 mg capsule 100 mg PO DAILY Excedrin Migraine 250-250-65 mg tablet 2 tab PO Q4-6H PRN (Reason: MIGRAINES) acetaminophen 500 mg capsule 1,000 mg PO ONCE chlorpheniramine maleate [Allergy Relief(chlorpheniramn)] 4 mg tablet 4 mg PO Q8H PRN (Reason: ALLERGIES) Rx Instructions: do not exceed 2 doses per 24 hrs meloxicam 15 mg tablet 15 mg PO DAILY methocarbamol 500 mg tablet 500 mg PO Q8H PRN (Reason: muscle spasm) Qty: 30 1RF lisinopril-hydrochlorothiazide 20-12.5 mg Tablet 1 tab PO DAILY gabapentin 300 mg Capsule 300 mg PO BID pravastatin 40 mg tablet 40 mg PO HS omeprazole 40 mg capsule,delayed release(DR/EC) 40 mg PO BID ferrous sulfate [Iron (ferrous sulfate)] 325 mg (65 mg iron) tablet 325 mg PO .qod Rx Instructions: Take 1 tab every other day oxycodone 5 mg tablet 5 mg PO Q6H PRN (Reason: pain) 3 Days Qty: 12 0RF Referrals Follow up/Referrals: Ermias Macias DO [Staff Physician, Orthopedics] - See instructions Placido Mercado [Primary Care Provider, Medical] - See instructions Activity Restrictions/Add. Instructions Additional Instructions/Restrictions: Call the orthopedist's office when you get home. You will follow-up with Dr. Macias. He will likely follow-up with him on Monday or . Keep her splint clean dry and intact. Wear sling for comfort as needed. Return if any numbness weakness tingling or fevers. Return if pain is uncontrolled. Clinical Impressions Clinical Impression: Fall, CHI (closed head injury) Colles' fracture of right radius Qualifiers: Encounter type: initial encounter Fracture type: closed Qualified Code(s): S52.531A - Colles' fracture of right radius, initial encounter for closed fracture Instructions Patient Instructions: DI for Moderate Sedation Print Language Print Language: Occitan Discharge ED Provider: Billy Blum Adult HPI General Chief complaint: Fall Stated complaint: AO 03/28/25 09:00 Fall Possible R broken arm Time Seen by Provider: 03/28/25 10:15 History of Present Illness HPI narrative: Patient is a 79-year-old female with a history of spinal stenosis, recent lumbar fusion, on Eliquis for DVT prevention. She presents today after a fall at home. She removed her shoes and stood up and began to feel lightheaded and stumbled backwards striking her head against the wall and falling down landing on her right arm landing on outstretched hand. She has pain of her right wrist with an obvious deformity. She does take blood thinners, she did not lose consciousness. She was ambulatory afterwards, but with some pain. She denies any headaches vision changes numbness weakness tingling chest pain shortness of breath. Does report some lightheadedness with ambulation. Reports that she had a couple of pop tarts this morning around 9 AM and drink some coffee. She does have a history of becoming dehydrated. Related Data Home Medications ?Medication ?Instructions ?Recorded ?Confirmed gabapentin 300 mg capsule 300 mg PO BID Restless leg syndrome 12/11/22 03/25/25 lisinopril 20 1 tab PO DAILY High blood pressure 12/11/22 03/25/25 mg-hydrochlorothiazide 12.5 mg tablet Held on 12/14/22. Instructions: Resume on 12/16/22. omeprazole 40 mg capsule,delayed 40 mg PO BID Acid reflux 12/12/22 03/25/25 release pravastatin 40 mg tablet 40 mg PO HS Cholesterol 12/12/22 03/25/25 ferrous sulfate 325 mg (65 mg 325 mg PO .qod Supplement 02/07/23 03/25/25 iron) tablet (Iron (ferrous sulfate)) acetaminophen 500 mg capsule 1,000 mg PO ONCE 04/05/23 03/25/25 lrjzwwq-oodarjvdbrwgw-mdebyotr 250 2 tab PO Q4-6H PRN MIGRAINES 04/05/23 03/25/25 mg-250 mg-65 mg tablet (Excedrin Migraine) chlorpheniramine maleate 4 mg 4 mg PO Q8H PRN ALLERGIES 04/05/23 03/25/25 tablet (Allergy Relief (chlorpheniramine)) coenzyme Q10 100 mg capsule 100 mg PO DAILY 04/05/23 03/25/25 meloxicam 15 mg tablet 15 mg PO DAILY 05/17/23 03/25/25 Previous Rx's ?Medication ?Instructions ?Recorded methocarbamol 500 mg tablet 500 mg PO Q8H PRN muscle spasm #30 08/22/24 tabs oxycodone 5 mg tablet 5 mg PO Q6H PRN pain 3 days #12 12/29/24 tabs Allergies Allergy/AdvReac Type Severity Reaction Status Date / Time No Known Allergies Allergy Verified 09/19/24 13:16 [facility] Disclaimer: The information contained in this section may have been updated after the patient was seen, as this information can be updated by other users. Medical History Hammertoe of left foot Left foot drop History of back pain Osteoarthritis History of gastroesophageal reflux (GERD) Hemorrhoid Hyperlipidemia Hypertension History of anemia Cataract Surgical History History of colonoscopy Family History Other Family history of diabetes mellitus type II Family history of hyperlipidemia Family history of hypertension Family history of leukemia Social History Smoking Status: Never smoker alcohol intake: never substance use type: denies use current occupational status: retired Travel in the last 8 weeks?: None household members: children housing: house lives independently: No marital status: well-balanced diet: daily or most days physical activity: none Have you lived/traveled outside US in past 30 days?: No Contact w/someone who lives/traveled outside US past 30 days?: No Exposure to someone with infectious disease in past 14 days?: No Do you have a fever (greater than 100.4 F or 38 C)?: No Have you tested positive for COVID-19?: No Exposed to someone with COVID-19 in past 14 days?: No Do you have a sore throat?: No Do you have a cough?: No Do you have any weakness?: No Do you have any diarrhea?: No Are you experiencing any unusual bleeding?: No Do you have any muscle aches/pain?: No Do you have any abdominal pain?: No Are you experiencing loss of taste or smell?: No Other Medical History Have you received the Flu Vaccine for this season: No Have you received the Pneumonia Vaccine: No ROS Obtained: Yes All systems reviewed & no additional complaints except as documented Physical Exam General General appearance: alert and in no apparent distress Head Head exam: atraumatic and normocephalic Eye Eye exam: Present PERRL and EOMI ENT ENT exam: Present normal oropharynx Neck Neck exam: Present full ROM and trachea midline Chest Chest inspection: Present symmetric chest wall rise Respiratory Respiratory exam: Present normal lung sounds bilaterally; Absent stridor Cardiovascular Cardiovascular exam: Present regular rate and normal rhythm Abdominal Exam Abdominal exam: Present soft; Absent distention or tenderness Extremities Exam Extremities exam: Present full ROM, tenderness (Tender palpation over right volar wrist and dorsally. Some ecchymoses. Neurovascularly intact distally.), normal capillary refill and joint swelling Back Exam Back exam: Present normal inspection and full ROM; Absent tenderness (Entire spine palpated. No step-offs deformities or midline tenderness) Neurological Exam Neurological exam: Present alert and oriented X3 Psychiatric Psychiatric exam: Present normal mood Skin Skin exam: Present warm and dry Medical Decision Making Medical Records Screening: Per USPSTF and CDC recommendations, given the prevalence of disease in our region, it is our hospital?s policy to screen for HIV and viral Hepatitis for all patients aged 18 and over and those with ongoing risk factors. Wayne Inquiry Pt receiving controlled substance: Yes Wayne was queried for this patient: Yes Risks and benefits of using a controlled substance: were discussed with pt by me Vital Signs: 03/28/25 10:28 03/28/25 10:30 03/28/25 10:33 Temperature 98.0 F Temperature Source Axillary Pulse Rate 84 Pulse Rate [Left Brachial] 89 Respiratory Rate 20 Blood Pressure 126/71 Blood Pressure [Left Arm] 114/68 Blood Pressure Mean 84 Blood Pressure Mean [Left Arm] 83 Blood Pressure Source Blood Pressure Source [Left Arm] Automatic Cuff Blood Pressure Position Blood Pressure Position [Left Arm] Sitting 02 Sat by Pulse Oximetry 94 L 94 L 94 L Oxygen Delivery Method Room Air Room Air Room Air Oxygen Flow Rate (LPM) 03/28/25 10:45 03/28/25 11:30 03/28/25 12:01 Temperature Temperature Source Pulse Rate 88 75 81 Pulse Rate [Left Brachial] Respiratory Rate 19 19 Blood Pressure 110/75 119/69 Blood Pressure [Left Arm] Blood Pressure Mean 85 Blood Pressure Mean [Left Arm] Blood Pressure Source Blood Pressure Source [Left Arm] Blood Pressure Position Blood Pressure Position [Left Arm] 02 Sat by Pulse Oximetry 95 98 100 Oxygen Delivery Method Room Air Room Air Oxygen Flow Rate (LPM) 03/28/25 13:06 03/28/25 13:30 03/28/25 13:54 Temperature Temperature Source Pulse Rate 80 80 Pulse Rate [Left Brachial] Respiratory Rate 14 15 14 Blood Pressure 134/81 135/83 120/76 Blood Pressure [Left Arm] Blood Pressure Mean 90 Blood Pressure Mean [Left Arm] Blood Pressure Source Blood Pressure Source [Left Arm] Blood Pressure Position Blood Pressure Position [Left Arm] 02 Sat by Pulse Oximetry 93 L 97 Oxygen Delivery Method Room Air Oxygen Flow Rate (LPM) 03/28/25 13:56 03/28/25 13:57 03/28/25 14:00 Temperature Temperature Source Pulse Rate 85 87 Pulse Rate [Left Brachial] 84 Respiratory Rate 19 12 13 Blood Pressure 121/76 131/78 Blood Pressure [Left Arm] 121/76 Blood Pressure Mean 93 87 Blood Pressure Mean [Left Arm] 91 Blood Pressure Source Blood Pressure Source [Left Arm] Automatic Cuff Blood Pressure Position Blood Pressure Position [Left Arm] Supine 02 Sat by Pulse Oximetry 98 100 100 Oxygen Delivery Method Nasal Cannula Nasal Cannula Nasal Cannula Oxygen Flow Rate (LPM) 4 4 4 03/28/25 14:03 03/28/25 14:06 03/28/25 14:09 Temperature Temperature Source Pulse Rate 87 87 92 H Pulse Rate [Left Brachial] Respiratory Rate 13 14 12 Blood Pressure 129/84 135/83 131/78 Blood Pressure [Left Arm] Blood Pressure Mean 96 106 111 Blood Pressure Mean [Left Arm] Blood Pressure Source Blood Pressure Source [Left Arm] Blood Pressure Position Blood Pressure Position [Left Arm] 02 Sat by Pulse Oximetry 100 100 99 Oxygen Delivery Method Nasal Cannula Nasal Cannula Nasal Cannula Oxygen Flow Rate (LPM) 4 4 4 03/28/25 14:12 03/28/25 14:24 03/28/25 14:25 Temperature Temperature Source Pulse Rate 92 H 88 130 H Pulse Rate [Left Brachial] Respiratory Rate 12 14 14 Blood Pressure 126/80 128/80 134/76 Blood Pressure [Left Arm] Blood Pressure Mean 95 97 100 Blood Pressure Mean [Left Arm] Blood Pressure Source Blood Pressure Source [Left Arm] Blood Pressure Position Blood Pressure Position [Left Arm] 02 Sat by Pulse Oximetry 99 99 100 Oxygen Delivery Method Nasal Cannula Nasal Cannula Nasal Cannula Oxygen Flow Rate (LPM) 4 4 4 03/28/25 14:26 03/28/25 14:28 03/28/25 14:28 Temperature Temperature Source Pulse Rate 130 H Pulse Rate [Left Brachial] 101 H 127 H Respiratory Rate 12 25 H 24 Blood Pressure 154/102 H Blood Pressure [Left Arm] 134/76 154/102 H Blood Pressure Mean 119 Blood Pressure Mean [Left Arm] 95 119 Blood Pressure Source Blood Pressure Source [Left Arm] Automatic Cuff Automatic Cuff Blood Pressure Position Blood Pressure Position [Left Arm] Supine Supine 02 Sat by Pulse Oximetry 100 100 100 Oxygen Delivery Method Nasal Cannula Nasal Cannula Nasal Cannula Oxygen Flow Rate (LPM) 4 4 4 03/28/25 14:30 03/28/25 14:30 03/28/25 14:32 Temperature Temperature Source Pulse Rate 133 H Pulse Rate [Left Brachial] 131 H 122 H Respiratory Rate 16 17 15 Blood Pressure 158/96 H Blood Pressure [Left Arm] 158/96 H 150/90 H Blood Pressure Mean 116 Blood Pressure Mean [Left Arm] 116 110 Blood Pressure Source Blood Pressure Source [Left Arm] Automatic Cuff Automatic Cuff Blood Pressure Position Blood Pressure Position [Left Arm] Supine Supine 02 Sat by Pulse Oximetry 100 98 100 Oxygen Delivery Method Nasal Cannula Nasal Cannula Nasal Cannula Oxygen Flow Rate (LPM) 4 4 4 03/28/25 14:33 03/28/25 14:35 03/28/25 14:35 Temperature Temperature Source Pulse Rate 121 H 121 H Pulse Rate [Left Brachial] 119 H Respiratory Rate 15 16 22 Blood Pressure 150/90 H 154/94 H Blood Pressure [Left Arm] 154/94 H Blood Pressure Mean 110 114 Blood Pressure Mean [Left Arm] 114 Blood Pressure Source Blood Pressure Source [Left Arm] Automatic Cuff Blood Pressure Position Blood Pressure Position [Left Arm] Supine 02 Sat by Pulse Oximetry 95 100 100 Oxygen Delivery Method Nasal Cannula Nasal Cannula Nasal Cannula Oxygen Flow Rate (LPM) 4 4 4 03/28/25 14:38 03/28/25 14:40 03/28/25 14:40 Temperature Temperature Source Pulse Rate 117 H 118 H Pulse Rate [Left Brachial] 102 H Respiratory Rate 12 12 12 Blood Pressure 149/95 H 153/88 H Blood Pressure [Left Arm] 153/88 H Blood Pressure Mean 105 103 Blood Pressure Mean [Left Arm] 109 Blood Pressure Source Blood Pressure Source [Left Arm] Automatic Cuff Blood Pressure Position Blood Pressure Position [Left Arm] Supine 02 Sat by Pulse Oximetry 99 100 100 Oxygen Delivery Method Nasal Cannula Nasal Cannula Nasal Cannula Oxygen Flow Rate (LPM) 4 4 4 03/28/25 14:43 03/28/25 14:45 03/28/25 14:48 Temperature Temperature Source Pulse Rate 101 H 80 98 H Pulse Rate [Left Brachial] Respiratory Rate 12 20 20 Blood Pressure 146/92 H 133/96 H 141/83 H Blood Pressure [Left Arm] Blood Pressure Mean 103 112 102 Blood Pressure Mean [Left Arm] Blood Pressure Source Blood Pressure Source [Left Arm] Blood Pressure Position Blood Pressure Position [Left Arm] 02 Sat by Pulse Oximetry 100 100 100 Oxygen Delivery Method Nasal Cannula Nasal Cannula Nasal Cannula Oxygen Flow Rate (LPM) 4 4 4 03/28/25 14:50 03/28/25 14:53 03/28/25 14:55 Temperature Temperature Source Pulse Rate 98 H 96 H 89 Pulse Rate [Left Brachial] Respiratory Rate 20 18 18 Blood Pressure 136/89 142/87 H 133/85 Blood Pressure [Left Arm] Blood Pressure Mean 104 101 109 Blood Pressure Mean [Left Arm] Blood Pressure Source Blood Pressure Source [Left Arm] Blood Pressure Position Blood Pressure Position [Left Arm] 02 Sat by Pulse Oximetry 100 100 100 Oxygen Delivery Method Nasal Cannula Nasal Cannula Nasal Cannula Oxygen Flow Rate (LPM) 4 4 4 03/28/25 14:58 03/28/25 15:00 03/28/25 15:05 Temperature Temperature Source Pulse Rate 93 H 94 H 72 Pulse Rate [Left Brachial] Respiratory Rate 13 13 15 Blood Pressure 133/80 141/84 H 134/80 Blood Pressure [Left Arm] Blood Pressure Mean Blood Pressure Mean [Left Arm] Blood Pressure Source Blood Pressure Source [Left Arm] Blood Pressure Position Blood Pressure Position [Left Arm] 02 Sat by Pulse Oximetry 100 100 98 Oxygen Delivery Method Nasal Cannula Oxygen Flow Rate (LPM) 4 4 03/28/25 15:06 03/28/25 15:10 03/28/25 15:15 Temperature Temperature Source Pulse Rate Pulse Rate [Left Brachial] 96 H Respiratory Rate 19 12 12 Blood Pressure 116/79 127/73 Blood Pressure [Left Arm] 134/80 Blood Pressure Mean Blood Pressure Mean [Left Arm] 98 Blood Pressure Source Blood Pressure Source [Left Arm] Automatic Cuff Blood Pressure Position Blood Pressure Position [Left Arm] Supine 02 Sat by Pulse Oximetry 100 Oxygen Delivery Method Room Air Oxygen Flow Rate (LPM) 03/28/25 15:30 03/28/25 15:45 03/28/25 16:13 Temperature 99.7 F H Temperature Source Oral Pulse Rate 89 89 Pulse Rate [Left Brachial] Respiratory Rate 11 L 16 19 Blood Pressure 117/75 138/84 132/78 Blood Pressure [Left Arm] Blood Pressure Mean 102 Blood Pressure Mean [Left Arm] Blood Pressure Source Automatic Cuff Blood Pressure Source [Left Arm] Blood Pressure Position Sitting Blood Pressure Position [Left Arm] 02 Sat by Pulse Oximetry 99 Oxygen Delivery Method Room Air Room Air Oxygen Flow Rate (LPM) Lab Data Lab Results 03/28/25 10:56: WBC 5.8, RBC 3.20 L, Hgb 8.7 L, Hct 27.7 L, MCV 86.6, MCH 27.2, MCHC 31.4 L, RDW 13.9, Plt Count 376, MPV 8.4, Neut % (Auto) 71.6, Lymph % (Auto) 12.0, [place] % (Auto) 11.5 H, Eos % (Auto) 3.6, Baso % (Auto) 0.3, Neut # (Auto) 4.1, Lymph # (Auto) 0.7, [place] # (Auto) 0.7, Eos # (Auto) 0.2, Baso # (Auto) 0.0, PT 11.9, INR 1.08, Sodium 130 L, Potassium 3.8, Chloride 98, Carbon Dioxide 26, Anion Gap 9.8, BUN 21 H, Creatinine 0.80, Estimated Creat Clear 59, Estimated GFR 70, Est GFR ( [place]) 84, Glucose 121 H, Calcium 8.9, Magnesium 1.3 L, Total Bilirubin 0.1 L, AST 21, ALT 18, Alkaline Phosphatase 89, Troponin I < 0.01, Total Protein 6.0 L, Albumin 3.1 L, Globulin 2.9, Albumin/Globulin Ratio 1.1, TSH 1.74, Free T4 1.50 03/28/25 10:56 03/28/25 10:56 Orders (Tests/Meds): ED MEDICATIONS Discontinued Medications Generic Name Dose Route Start Last Admin Trade Name Freq PRN Reason Stop Dose Admin Fentanyl Citrate 50 mcg 03/28/25 10:47 03/28/25 11:02 Fentanyl 100mcg/2ml Vial IV 03/28/25 10:48 50 mcg ONCE ONE Administration Sodium Chloride 1,000 mls @ 999 mls/hr 03/28/25 10:47 03/28/25 11:02 Sod Chlor 0.9% 1000ml Bag IV 03/28/25 11:47 999 mls/hr .Q1H1M ONE Administration Ketamine HCl 100 mg 03/28/25 13:20 03/28/25 14:25 Ketamine 50mg/1ml Syringe IV 03/28/25 13:21 75 mg ONCE ONE Administration Ondansetron HCl 4 mg 03/28/25 10:47 03/28/25 11:02 Ondansetron 4mg/2ml Vial IV 03/28/25 10:48 4 mg ONCE ONE Administration Oxycodone HCl 5 mg 03/28/25 15:46 03/28/25 15:51 Oxycodone 5mg Immediate Release Tablet PO 03/28/25 15:47 5 mg ONCE ONE Administration ORDERS Category Date Time Status CT cervical spine wo con Stat Cat Scan 03/28/25 10:[address] head/brain wo con Stat Cat Scan 03/28/25 10:47 Completed XR elbow RT 2V Stat Exams 03/28/25 10:47 Completed XR forearm RT 2V Stat Exams 03/28/25 10:47 Completed XR hand RT min 3V Stat Exams 03/28/25 10:47 Completed XR wrist RT 2V Stat Exams 03/28/25 10:47 Completed XR wrist RT 2V Stat Exams 03/28/25 14:38 Completed CBC w/Auto Diff [Complete Blood Count Auto Diff] Stat Lab 03/28/25 10:56 Completed CMP [Comprehensive Metabolic Panel] Stat Lab 03/28/25 10:56 Completed Free T4 (Free Thyroxine) Stat Lab 03/28/25 10:56 Completed MAG [Magnesium] Stat Lab 03/28/25 10:56 Completed PT INR [Prothrombin Time INR] Stat Lab 03/28/25 10:56 Completed TSH [Thyroid Stimulating Hormone] Stat Lab 03/28/25 10:56 Completed Trop I [Troponin I] Stat Lab 03/28/25 10:56 Completed ECG Data Tracing #1: I reviewed this ECG and interpreted as documented below: Normal sinus rhythm with no acute ischemic ST changes intervals within normal limits Medical Decision Narrative: In summary, this 79-year-old female presents to the emergency department today with fall wrist pain. On initial evaluation patient is afebrile hemodynamically stable and in no acute distress pain on exam is warm well-perfused. I went M sounds and full pulses in all extremities. She is an obvious right wrist deformity with ecchymoses, suspect clinically that this is a distal radius fracture, but will obtain plain films. Additionally, she did strike her head, will obtain CT head and C-spine given on blood thinners and cannot rule out by Nexus criteria. Full trauma survey otherwise negative.. Motor and sensory in all distributions intact in the right upper extremity differential diagnosis includes but is not limited to ICH, SDH, fracture dislocation sprain strain neurovascular compromise. Very low suspicion for ACS, but patient was feeling lightheaded and had a near syncopal event, so will screen for high risk syncope with troponins and EKG based on these concerns, I ordered CBC CMP troponin CT head CT C-spine x-rays of right upper extremity. X-ray dependently interpreted by myself demonstrate a right Colles' fracture of the ulnar styloid. Reduced under closed reduction and moderate sedation. Had indirect discussion with Dr. Macias orthopedic surgeon who reviewed the images and would like to see her outpatient in clinic. Prereduction and postreduction neurovascular exams were reassuring and completely intact. No median nerve palsy. Troponin undetectably low, history consistent with a mechanical fall, low suspicion for ACS. Patient is ambulatory here without difficulty. Regarding her anemia of 8.7, she is having no active bleeding, felt to be chronic, not acutely actionable. Offered admission for PT OT, but family declined feeling they can manage at home as son lives with her. This felt to be reasonable. independently interpreted the head CT demonstrate no acute intracranial mounting for by radiologist final read At this time it was felt that the patient was safe to be discharged home. The patient was in agreement with this plan. The patient was given strict return precautions prior to being discharged from the emergency department. Procedures Orthopedic Fracture Reduction Fracture #1: Time Out Performed: Yes Side: right Fracture Reduction Location: radius Analgesia: procedural sedation Technique: direct manipulation and finger traps Post Reduction X-rays Demonstrate: anatomical reduction Post-reduction neuro exam: intact Post-reduction vascular exam: intact Splint Applied: Yes Patient Tolerated Procedure: well Procedural Sedation A heart and lung assessment was performed on this patient at: 13:00 Mallampati Score:: Class I Indication: fracture/dislocation reduction ASA Class: III Time of Last PO Intake: 09:00 Preparation: alarm security or surveillance monitor applied, pulse oximeter, capnometry used, supplemental O2 applied, reversal agents at bedside, suction/airway equipment at bedside and IV secured Ketamine: IV Ketamine dose (mg): 75 Patient Tolerated Procedure: well Complications: none Interventions: oxygen applied Critical Care Critical Care Time Critical Care Time: No
--- OUTSIDE RECORDS SUMMARY | 2025-03-28 10:32 | XMS_ITS | Encounter Summary ---
Author Organization Healthcare Address [address] [place] [address] Care Team Providers Care Smoked Meat Preparer Name Role Phone Placido Mercado MD Primary Care Provider [phone] Encounter Details Date Type Department Care Team (Late st Contact Info) Description 10/16/2023 Lab Requisition [facility] [address] [place] [address] Jonas Tony MD [id number] [facility] [address] [place] [address] Encounter for general adult medical [...] place to sleep or slept in a snf (including now)? No 10/16/2023 Utilities Answer Date [...] AM EST 10/16/2023 12:11 PM EST us Jonas Tony MD LAB MICROBIOLOGY - GEN ERAL ORDERABLES Final Result Performing Organization Address City/State/[facility] Co de Phone Number [facility] [address] [place] [address] documented in this encounter Visit Diagnoses Diagnosis Encounter for general adult medical examination without abnormal findings documented in this encounter Additional Health Concerns Assessment Noted Time A Body Mass Index follow-up plan has been documented for the patient 10/23/2023 2:41 PM EST documented as of this encounter Care Teams Smoked Meat Preparer Relationship Specialty Start Date End Date Placido Mercado MD [address] [place] [id number] PCP - General 10/16/23 documented as of this encounter
--- OUTSIDE RECORDS SUMMARY | 2025-03-28 10:32 | XMS_ITS | Clinical Summary ---
Author Organization [facility] Address [address] [place] [address] Care Team Providers Care Sample Clerk Name Role Phone Placido Mercado MD Primary Care Provider [phone] Allergies No known active allergies Medications gabapentin [...] if needed for headaches. Active HYDROcodone-edith taminophen ([place]) 7.5-325 MG tablet 1 tablet (7.5 mg [...] to sleep or slept in a senior living (including now)? No 10/16/2023 Utilities Answer Date [...] Screening 1945 [facility]ic[facility] Annual Wellness (AWV) 1945 [facility]-Infant/Child/Adol SDOH Screenings 1945 [facility]- SDOH Screenings 11/08/1965 [facility]-Adult SDOH Screenings 11/08/1965 [facility]-DTaP,Tdap,and Td Vaccine s (1 - Tdap) 11/08/1966 [facility]-Zoster Vaccines (1 of 2) 11/08/1997 [facility]-Pneumococcal Vaccine: 50 + Years (2 of 2 - PCV) 02/18/2022 02/18/2021 [facility]-RSV Vaccine: 60+ Years o r (1 - 1-dose 75+ series) 11/08/2022 [id number] Vaccine ( - season) 2024 07/14/2021, 12/11/2020, 11/10/2020 [facility]-Influenza Vaccine (#1) 2025 [facility]-Hepatitis A Vaccines Aged Out 04/25/2019 [...] medications. Staff Staff Role Kristine [facility] End[facility] Corrugator Operator Jade Vale, ORACLE SPECIALIST Sara Shepard, RN Endo Nurse Dipika Najera, [...] of bowel preparation was evaluated using the Hines Bowel Preparation Scale with scores of: left [...] Antigen Negative Negative 10/15/2023 6:39 AM EST [facility] Hepatitis C Antibody Negative Negative 10/15/2023 6:39 AM EST [facility]ALTH[facility] Hepatitis A Antibody IgM Negative Negative 10/15/2023 6:39 AM EST [facility] Hepatitis B Core Antibody IgM Negative Negative 10/15/2023 6:39 AM EST [facility] Blood Venous blood specimen / Unknown Venipuncture / Unknown 10/15/2023 12:57 AM EST 10/15/2023 1:14 AM EST us Patricia Barkley APRN, YADI LAB BLOOD ORDERABLES Liliya l Result Performing Organization Address [facility] Co de Phone Number [facility] [address] [place] [address] * (ABNORMAL) Hemoglobin A1c (10/13/2023 11:49 PM EST) Hemoglobin A1c 5.8(H) <5.7 % 10/14/2023 3:36 AM EST [facility] Blood Venous blood specimen / [...] Adults <6.0% Children and Adolescents <7.5% Source: [place] [employer]. Standards of medical care in diabetes,2017. Diabetes Care.2017:40 (suppl 1):S1-S135. HbA1c assay performed by an ion-exchange chromatography method that is certified traceable to the DCCT. us Hesham Whiteside MD LAB BLOOD ORDERABLES Final Re sult [facility] [address] [place] [address] from Last 3 Months or Most Recently Relevant to Health Maintenance Insurance [employer] MEDICARE Advance Directives * Full Code (Latest Code Status on File) Date Activated Date Inactivated Comments 10/18/2023 4:44 PM 10/23/2023 5:27 PM Question Answer Comments Patient has decision-making capacity? Yes Care Teams Sample Clerk Relationship Specialty Start Date End Date Placido Mercado MD [facility] [place] [address] PCP - General 10/16/23
--- OUTSIDE RECORDS SUMMARY | 2025-03-28 10:33 | XMS_ITS | Clinical Summary ---
Author Organization [facility] Address [address] [place] [address] Care Team Providers Care Oracle Database Consultant Name Role Phone Placido Mercado MD Primary Care Provider [phone] Allergies No known active allergies Medications lisinopril-hydr ochlorothiazide (PRINZIDE,ZESTO RETIC) 20-12.5 MG per tablet Take 1 tablet by mouth Daily. 2 Active omeprazole (priLOSEC) 40 MG capsule Take 1 capsule by mouth 2 (Two) Times a Day. 2 Active pravastatin (PRAVACHOL) 40 MG tablet Take 1 tablet by mouth Daily. 2 Active Turmeric 500 MG capsule Take 1 capsule by mouth Daily. Active Coenzyme C78-Idvgdqx E (QUNOL ULTRA COQ10 PO) Take 100 mg by mouth Daily. Active diphenhydrAMINE (BENADRYL) 25 mg capsule Take 1 capsule by mouth At Night As Needed for Sleep. Active acetaminophen (TYLENOL) 650 MG 8 hr tablet Take 2 tablets by mouth Every Morning. Active acetaminophen (TYLENOL) 500 MG tablet Take 2 tablets by mouth Every Night. Active gabapentin (NEURONTIN) 300 MG capsuleIndicati ons:S/P lumbar spinal fusion Take 1 capsule by mouth 2 (Two) Times a Day. 20 capsule 5 Active cyclobenzaprine (FLEXERIL) 10 MG tablet Take 1 tablet by mouth 3 (Three) Times a Day As Needed for Muscle Spasms. 5 Active sennosides-docu sate (PERICOLACE) 8.6-50 MG per tablet Take 2 tablets by mouth 2 (Two) Times a Day As Needed for Constipation. Active polyethylene glycol (MIRALAX) 17 g packet Take 17 g by mouth Daily As Needed (Use if senna-docusate is ineffective). Active bisacodyl (DULCOLAX) 5 MG EC tablet Take 1 tablet by mouth Daily As Needed for Constipation (Use if polyethylene glycol is ineffective). Active bisacodyl (DULCOLAX) 10 MG suppository Insert 1 suppository into the rectum Daily As Needed for Constipation (Use if bisacodyl oral is ineffective). Active gabapentin (NEURONTIN) 100 MG capsuleIndicati ons:Chronic radicular lumbar pain Take 1 capsule by mouth 3 (Three) Times a Day for 3 days. 9 capsule Active Active Problems Problem Noted Date Diagnosed Date Lumbar stenosis with neurogenic claudication 10/2024 S/P lumbar spinal fusion (re vision decompression L4-5, posterior lateral fusion L4-5) 02/03/2025 Overview (02/03/2025): #1 Revision Decompression of L4-5 #2 Posterior Lateral Fusion of L4-5 #3 Pedicle Screws with cement augmentation Placed at L4-5 #4 Local Bone mixed with Purified Allograft Placed in Lateral Gutters #5 Removal of indwelling pedicle screws with retention of inter-body cage Acute postoperative pain 05/18/2022 Acute blood loss anemia, asymptomatic 05/18/2022 Spondylolisthesis at L4-L5 level 05/16/2022 HTN (hypertension) 05/16/2022 Hyperlipidemia 05/16/2022 GERD (gastroesophageal reflux disease) 2 S/P lumbar spinal fusion, decompression 05/16/20 22 Obesity 05/16/2022 Encounters Date Type Department Care Team Description 02/16/2025 6:44 PM EDT - 02/17/2025 12:04 AM EDT Emergency [facility] [address] [address] Alexi Matston MD Chronic radicular lumbar pain (Primary Dx) Discharge Disposition: Home or Self Care 02/16/2025 Travel 02/07/2025 Readmission Management [facility] [address] [place] [address] Lauren Etienne RN 02/03/2025 7:37 AM EDT Anesthesia Event [facility] [address] [place] [address] Vini Schwartz MD 02/03/2025 7:15 AM EDT - 02/03/2025 12:04 PM EDT Surgery [facility] [address] [place] [address] Vini Peterson MD REVISION DECOMPRESSION WITH REVISED FUSION WITH PEDICLE SCREWS WITH CEMENT AUGMENTATION, AND HARDWARE REVISION L4-5 [84191 (CPT )] 02/03/2025 5:14 AM EDT - 02/07/2025 3:28 PM EDT Hospital Encounter [facility] 3G [address] [place] [address] Vini Peterson MD S/P lumbar spinal fusion (revision decompression L4-5, posterior lateral fusion L4-5) (Primary Dx) Discharge Disposition: Longterm Facility (DC - External) 02/03/2025 Travel 01/29/2025 9:30 AM EDT Pre-Admission Testing [facility] T [address] [place] [address] 01/29/2025 Travel from Last 3 Months Immunizations Immunization Administration Dates Next Due COVID-19 (MODERNA) 1st,2nd,3rd Dose Monovalent 0 12/11/2020,11/10/2020 COVID-19 (MODERNA) Monovalent Original Booster 1 09/13/2020 Hepatitis A 04/25/2019 Pneumococcal Polysaccharide (PPSV23) 02/18/2021 Social History Tobacco Use Types Packs/Day Years Used Date Smoking Tobacco: Former Smokeless Tobacco: Never Alcohol Use Standard Drinks/Week Comments Never 0 (1 standard drink = 0.6 oz pur e alcohol) [facility] Utilities Answer Date Recorded In the past 12 months has th e electric, gas, oil, or water [employer] threatened to shut off services in your [...] care, and heating? Not very hard 02/04/2025 [facility] [place] of Occupat ional Health - Occupational Stress [...] GED or equivalent No 02/04/2025 Preferred Language Mohawk 02/04/2025 PHQ-2 Answer Date Recorded Patient Health [...] Mass Index 36.26 02/16/2025 6:48 PM EDT Plan of Treatment Health Maintenance Due Date Last Done Comments DXA SCAN 1945 LIPID PANEL 1945 TDAP/TD VACCINES (1 - Tdap) 11/08/1966 ZOSTER VACCINE (1 of 2) 11/08/1997 Pneumococcal Vaccine 50+ (2 of 2 - PCV) 02/18/2022 02/18/2021 ANNUAL PHYSICAL 05/13/2022 RSV Vaccine - Adults (1 - 1- dose 75+ series) 11/08/2022 COVID-19 Vaccine (4 - 2023-2 5 season) 2024 07/14/2021, 12/11/2020, 11/10/2020 INFLUENZA VACCINE 06/04/2025 HEPATITIS C SCREENING Completed 10/15/2023, 024 COLON CANCER SCREENING 5 YEA R SIGMOIDOSCOPY Discontinued 10/18/2023 COLORECTAL CANCER SCREENING Discontinued COLOGUARD Discontinued COLONOSCOPY Discontinued CT COLONOGRAPHY Discontinued FECAL OCCULT BLOOD TEST Discontinued FIT Testing (1 year) Discontinued Goals Goal Patient Goal Type Associated Problems Recent Progress Patient-Stated? Author Autogenerat ed Goal Care Plan Autogenerated Problem [employer] Devices Implanted Type Area Tmh Teacher Device Identifier Shelf Expiration Date Model / Serial / Lot Hemost Abs Surgifoam Sz100 8x12 10mm - [id number] Implanted:Qt y: 1 on 05/16/2022 by Vini Peterson MD at [facility] Implant N/A: Spine Lumbar ETHICON DIV [employer] J AND J 1974 / / Kt Seal Hemos Abs Floseal Matrx Fast/Prep 10ml - [id number] Implanted:Qt y: 1 on 05/16/2022 by Vnii Peterson MD at [facility] Implant N/A: Spine Lumbar SORIA Captify [id number] 02/06/2024 [id number] / / [id number] Allogrft Bone Vivigen Celluar Matrx Formable 5cc - [id number] Implanted:Qt y: 1 on 05/16/2022 by Vini Peterson MD at [facility] Implant N/A: Spine Lumbar [facility] 03/14/2023 [id number] / / Spalavinia Tpal Peek [id number] - [id number] Implanted:Qt y: 1 on 05/16/2022 by Vini Peterson MD at [facility] Implant N/A: Spine Lumbar DEPUY SPINE [id number] / / Scrw Viper [address] - [id number] Implanted:Qt y: 4 on 05/16/2022 by Vini Peterson MD at [facility] Implant N/A: Spine Lumbar DEPUY SPINE [id number] / / Enrike Prebnt Spine Expedium Ti 5.5x40mm - [id number] Implanted:Qt y: 2 on 05/16/2022 by Vini Peterson MD at [facility] Implant N/A: Spine Lumbar DEPUY SPINE [id number] / / Scrw Expedium Pa Ti 6x50mm - [id number] Implanted:Qt y: 2 on 05/16/2022 by Vini Peterson MD at [facility] Implant N/A: Spine Lumbar DEPUY SPINE [id number] / / Scrw Expedium Pa Ti 6x45mm - [id number] Implanted:Qt y: 2 on 05/16/2022 by Vini Peterson MD at [facility] Implant N/A: Spine Lumbar DEPUY SPINE [id number] / / Hemost Abs Surgifoam Sz100 8x12 10mm - [id number] Implanted:Qt y: 2 on 02/03/2025 by Vini Peterson MD at [facility] Implant N/A: Spine Lumbar ETHICON DIV OF J AND J [id number] 08/05/2028 1974 / / [id number] Description:Given to the bret arellano Wax Bone Hemo Lukens Sharpoint 2.5gm Wht - [id number] Implanted:Qt y: 1 on 02/03/2025 by Vini Peterson MD at [facility] Implant N/A: Spine Lumbar [employer] JAIDA [id number] 02/06/2029 [id number] / / [id number] Description:Given to the bret arellano Allogrft Bone Vivigen Celluar Matrx Formable 5cc - [id number] - [id number] Implanted:Qt y: 1 on 02/03/2025 by Vini Peterson MD at [facility] Implant N/A: Spine Lumbar [facility] [id number] 01/10/2026 [id number] / [id number] / Scrw Gurvinder Viper Fen Pa Ti 7x50mm - [id number] Implanted:Qt y: 2 on 02/03/2025 by Vini Peterson MD at [facility] Implant N/A: Spine Lumbar DEPUY SPINE [id number] / / Scrw Gurvinder Viper Fen Pa Ti 7x45mm - [id number] Implanted:Qt y: 2 on 02/03/2025 by Vini Peterson MD at [facility] Implant N/A: Spine Lumbar DEPUY SPINE [id number] / / Enrike Prebnt Spine Expedium Ti 5.5x40mm - [id number] Implanted:Qt y: 2 on 02/03/2025 by Vini Peterson MD at [facility] Implant N/A: Spine Lumbar DEPUY SPINE [id number] / / Scrw Viper Innr St - [id number] Implanted:Qt y: 4 on 02/03/2025 by Vini Peterson MD at [facility] Implant N/A: Spine Lumbar DEPUY SPINE [id number] / / Cmt Bone Confidence/P ls Ds Kt 11cc - [id number] Implanted:Qt y: 1 on 02/03/2025 by Vini Peterson MD at [facility] Implant N/A: Spine Lumbar DEPUY SPINE [id number] / / Kt Seal Hemos Abs Floseal Matrx Fast/Prep 10ml - [id number] Implanted:Qt y: 1 on 02/03/2025 by Vini Peterson MD at [facility] Implant N/A: Spine Lumbar [facility] [id number] 07/30/2026 [id number] / / [id number] Description:Given to the bret lee field Procedures Procedure Name Priority Date/Time Associated Diagnosis Comments SCANNED - TELEMETRY 02/16/2025 7 :07 PM EDT SCANNED - TELEMETRY 02/16/2025 6 :56 PM EDT POTASSIUM Routine 02/05/2025 6:59 AM EDT BASIC METABOLIC PANEL Routine 02/04/2025 6:15 AM EDT HEMOGLOBIN AND HEMATOCRIT, BLOOD Routine 02/04/2025 6:15 AM EDT FL C ARM DURING SURGERY Routine 02/03/2025 12:08 PM EDT ANESTHESIA INTUBATION Routine 02/03/2025 8:05 AM EDT AL ARTHRODESIS COMBINED TQ 1NTRSPC LUMBAR 02/03/2025 7:22 AM EDT Special Needs DEPUY WITH CEMENT AUGMENTATION, CLINICAL LAB TECHNOLOGIST, RK TABLE, CELL SAVER (CONFIRMED WITH MATILDE GEORGES 01/15), C-ARM, O-ARM STEALTH * TYPE AND SCREEN STAT 02/03/2025 6:46 AM EDT SCANNED EKG 02/03/2025 SCANNED - LABS 02/03/2025 SCANNED - IMAGING 02/03/2025 PROTIME-INR Routine 01/29/2025 10:14 AM EDT CBC (NO DIFF) Routine 01/29/2025 9:58 AM EDT POTASSIUM Routine 01/29/2025 9:58 AM EDT HEMOGLOBIN A1C Routine 01/29/2025 9:58 AM EDT MRSA SCREEN Routine 01/29/2025 9:58 AM EDT from Last 3 Months Results * Telemetry Scan (02/16/2025 7:07 PM EDT) Only the most recent of2 resultswithin the time period is included. [facility] ECG ORDERABLES Final Result * Potassium (02/05/2025 6:59 AM EDT) Only the most recent of2 resultswithin the time period is included. Potassium 3.9 3.5 - 5.2 mmol/L 02/05/2025 8:25 AM EDT [facility] Blood Venipuncture / Unknown 02/05/2025 6:59 AM EDT 02/05/2025 7:51 AM EDT Pavithra Oakes MD LAB BLOOD ORDERABLES Final Result Performing Organization Address [facility] Co de Phone Number [facility]
[address] [place] [address], * (ABNORMAL) Hemoglobin & Hematocrit, Blood (02/04/2025 6:15 AM EDT) Hemoglobin 9.7(L) 12.0 - 15.9 g/dL 02/04/2025 6:37 AM EDT [facility] Hematocrit 31.1(L) 34.0 - 46.6 % 02/04/2025 6:37 AM EDT [facility] Blood Venipuncture / Unknown 02/04/2025 6:15 AM EDT 02/04/2025 6:33 AM EDT Vini Peterson MD LAB BLOOD ORDERABLES Final Res ult Performing Organization Address [facility] Co de Phone Number [facility]
[address] [place] [address], * (ABNORMAL) Basic Metabolic Panel (02/04/2025 6:15 AM EDT) Glucose 101(H) 65 - 99 mg/dL 02/04/2025 7:01 AM EDT [facility] BUN 11.2 8.0 - 23.0 mg/dL 02/04/2025 7:01 AM EDT [facility] Creatinine 0.87 0.57 - 1.00 mg/dL 02/04/2025 7:01 AM EDT [facility] Sodium 138 136 - 145 mmol/L 02/04/2025 7:01 AM EDT [facility] Potassium 5.4(H) 3.5 - 5.2 mmol/L 02/04/2025 7:01 AM EDT [facility] Chloride 105 98 - 107 mmol/L 02/04/2025 7:01 AM EDT [facility] CO2 27.0 22.0 - 29.0 mmol/L 02/04/2025 7:01 AM EDT [facility] Calcium 9.5 8.6 - 10.5 mg/dL 02/04/2025 7:01 AM EDT [facility] BUN/Creatinine Ratio 12.9 7.0 - 25.0 02/04/2025 7:01 AM EDT [facility] Anion Gap 6.0 5.0 - 15.0 mmol/L 02/04/2025 7:01 AM EDT [facility] eGFR 68.7 >60.0 mL/min/1.7 3 02/04/2025 7:01 AM EDT [facility] Blood Venipuncture / Unknown 02/04/2025 6:15 AM EDT 02/04/2025 6:34 AM EDT Narrative [facility] - 02/04/2025 7:01 AM EDT GFR [...] Oakes MD LAB BLOOD ORDERABLES Final Result [facility]
[address] [place] [address], * FL C Arm During Surgery (02/03/2025 12:08 PM EDT) Narrative SYSTEMGENERATED, DOCUMENTATION - 02/03/2025 12:08 PM EDT This procedure was auto-finalized with no dictation required. Vini Peterson MD IMG FLUOROSCOPY ORDERABLES Fin al Result * BH AN ETT AIRWAY (02/03/2025 8:05 AM EDT) Narrative David Mcmillan CRNA - 02/03/2025 8:05 AM EDT David Mcmillan CRNA 02/03/2025 8:06 AM Airway Reason: elective Date/Time: 02/03/2025 7:42 AM Airway not difficult General Information and Staff Patient location during procedure: OR PRODUCT SUPPORT TECHNICIAN/CAA: David Mcmillan CRNA Indications and Patient Condition [...] bilaterally with symmetric chest rise and fall Vini Schwartz MD ANESTHESIA ORDERABLES Final Re sult * Type & Screen (02/03/2025 6:46 AM EDT) ABO Type A 02/03/2025 7:43 AM EDT [facility] RH type Positive 02/03/2025 7:43 AM EDT [facility] Antibody Screen Negative 02/03/2025 7:43 AM EDT [facility] T&S Expiration Date 02/06/2025 11:59:59 PM 02/03/2025 7:43 AM EDT [facility] Blood Line / Unknown 02/03/2025 6: 46 AM EDT 02/03/2025 6:52 AM EDT Vini Peterson MD BLOOD BANK TEST ORDERABLES Sanchez antonina Result - Final Performing Organization Address City/[facility]/ZIP Co de Phone Number [facility]
[address] [place] [address], * ECG Scan (02/03/2025) [facility] ECG ORDERABLES Final Result * IMAGING SCANNED (02/03/2025) Anatomical Region Laterality Modality Radiographic Carmella ging [facility] IMG DIAGNOSTIC IMAGING ORDERA BLES Final Result * LABS SCANNED (02/03/2025) [facility] LAB BLOOD ORDERABLES Final Re sult * (ABNORMAL) Protime-INR (01/29/2025 10:14 AM EDT) Protime 12.2 12.2 - 15.3 Seconds 01/29/2025 10:38 AM EDT [facility] INR 0.86(L) 0.89 - 1.12 01/29/2025 10:38 AM EDT [facility] Blood Venipuncture / Unknown 01/29/2025 10:14 AM EDT 01/29/2025 10:21 AM EDT Vini Peterson MD LAB BLOOD ORDERABLES Final Res ult Performing Organization Address City/[facility]/ZIP Co de Phone Number [facility]
[address] [place] [address], * (ABNORMAL) CBC (No Diff) (01/29/2025 9:58 AM EDT) WBC 4.48 3.40 - 10.80 10*3/mm3 01/29/2025 11:24 AM EDT [facility] RBC 3.91 3.77 - 5.28 10*6/mm3 01/29/2025 11:24 AM EDT [facility] Hemoglobin 11.0(L) 12.0 - 15.9 g/dL 01/29/2025 11:24 AM EDT [facility] Hematocrit 36.0 34.0 - 46.6 % 01/29/2025 11:24 AM EDT [facility] MCV 92.1 79.0 - 97.0 fL 01/29/2025 11:24 AM EDT [facility] MCH 28.1 26.6 - 33.0 pg 01/29/2025 11:24 AM EDT [facility] MCHC 30.6(L) 31.5 - 35.7 g/dL 01/29/2025 11:24 AM EDT [facility] RDW 14.1 12.3 - 15.4 % 01/29/2025 11:24 AM EDT [facility] RDW-SD 47.5 37.0 - 54.0 fl 01/29/2025 11:24 AM EDT [facility] MPV 9.2 6.0 - 12.0 fL 01/29/2025 11:24 AM EDT [facility] Platelets 313 140 - 450 10*3/mm3 01/29/2025 11:24 AM EDT [facility] Blood Venipuncture / Unknown 01/29/2025 9:58 AM EDT 01/29/2025 10:21 AM EDT us Vini Peterson MD LAB BLOOD ORDERABLES Final Res ult [facility]
[address] [place] [address], * MRSA Screen Culture (Outpatient) - Swab, Nares (01/29/2025 9:58 AM EDT) Pathologist [facility] MRSA Screen Cx No Methicillin Resistant Staphylococcus aureus isolated NIKKIE 01/30/2025 10:31 AM EDT [facility] Swab Structure of anterior naris / Unknown Collection / Unknown 01/29/2025 9:58 AM EDT 01/29/2025 10:28 AM EDT [facility] - 01/30/2025 10:31 AM EDT The negative predictive value of this diagnostic test is high and should only be used to consider de-escalating anti-MRSA therapy. A positive result may indicate colonization with MRSA and must be correlated clinically. Vini Peterson MD MICROBIOLOGY - GENERAL ORDERAB LES Final Result Performing Organization Address [facility]/ZIP Co de Phone Number [facility]
[address] [place] [address], [place] [phone] * Hemoglobin A1c (01/29/2025 9:58 AM EDT) Pathologist [facility] Hemoglobin A1C 5.60 4.80 - 5.60 % 01/29/2025 10:50 AM EDT [facility] Blood Venipuncture / Unknown 01/29/2025 9:58 AM EDT 01/29/2025 10:21 AM EDT [facility] - 01/29/2025 10:50 AM EDT Hemoglobin A1C Ranges: Increased Risk for Diabetes 5.7% to 6.4% Diabetes >= 6.5% Diabetic Goal < 7.0% Vini Peterson MD LAB BLOOD ORDERABLES Final Res ult [facility]
[address] [place] [address], [place] [phone] from Last 3 Months Additional Health Concerns Active Problems Noted Date Diagnosed Date Autogenerated Problem 03/06/2025 Insurance [id number] MEDICARE ADVANTAGE [facility] Advance Directives Documents on File Type Date Recorded Patient Drawer Fitter Expl anation LIVING WILL - SCAN 01/29/2025 9:21 AM MIKE NG WILL 2024 * CPR (Attempt to Resuscitate) (Latest Code Status on File) Date Activated Date Inactivated Comments 02/03/2025 5:32 PM 02/07/2025 5:33 PM Question Answer Comments Code Status (Patient has no pulse and is not breathing): CPR (Attempt to Resuscitate) Medical Interventions (Patie nt has pulse or is breathing): Full Support * CPR (Attempt to Resuscitate) Date Activated Date Inactivated Comments 05/16/2022 5:29 PM 05/18/2022 4:50 PM Question Answer Comments Code Status (Patient has no pulse and is not breathing): CPR (Attempt to Resuscitate) Medical Interventions (Patie nt has pulse or is breathing): Full Support Release to patient: Routine Release Care Teams Oracle Database Consultant Relationship Specialty Start Date End Date Placido Mercado MD [address] [place] [address] PCP - General Family Medicine 01/29/25
--- OUTSIDE RECORDS SUMMARY | 2025-03-28 10:33 | XMS_ITS | Encounter Summary ---
Author Organization [facility] Address [address] [place] [address] Care Team Providers Care Enrollment Representative Name Role Phone Placido Mercado MD Primary Care Provider [phone] Encounter Details Date Type Department Care Team (Latest Contact Info) Description 01/29/2025 Travel Social History Tobacco Use Types Packs/Day Years [...] or training? Not on file Preferred Language Hungarian 01/29/2025 Comments No Sex and Gender Information Value Date Recorded Sex Assigned at Not on file Legal Sex Female 2:30 PM EDT Gender Identity Not on file Sexual Orientation Not on file documented as of this encounter Plan of Treatment Not on file documented as of this encounter Goals Goal Patient Goal Type Associated Problems Recent Progress Patient-Stated? Author Autogenerat ed Goal Care Plan Autogenerated Problem No Shan Huff documented as of this encounter Visit Diagnoses Not on filedocumented in this encounter Additional Health Concerns Active Problems Noted Date Diagnosed Date Autogenerated Problem 03/06/2025 documented as of this encounter Care Teams Enrollment Representative Relationship Specialty Start Date End Date Placido Mercado MD [address] [place] [address] PCP - General Family Medicine 01/29/25 documented as of this encounter
--- OUTSIDE RECORDS SUMMARY | 2025-03-28 10:33 | XMS_ITS | Encounter Summary ---
Author Organization [facility] Address [address] [place] [address] Care Team Providers Care Barker Peeler Name Role Phone Placido Mercado MD Primary Care Provider [phone] Encounter Details Date Type Department Care Team (Latest Contact Info) Description 02/16/2025 Travel Social History Tobacco Use Types Packs/Day Years Used Date Smoking Tobacco: Former Smokeless Tobacco: Never Alcohol Use Standard Drinks/Week Comments Never 0 (1 standard drink = 0.6 oz pur e alcohol) [facility] Utilities Answer Date Recorded In the past 12 months has [employer] electric, gas, oil, or water company threatened [...] care, and heating? Not very hard 02/04/2025 [facility] [place] of Occupat ional Health - Occupational Stress [...] GED or equivalent No 02/04/2025 Preferred Language Ivorian 02/04/2025 PHQ-2 Answer Date Recorded Patient Health [...] Risk Indicated 02/16/2025 6:50 PM EDT Ankita Graham, ANN * [place] Suicide Severity Rating Scale (Screener/Recent Self-Report) Question Answer Date of Assessment Author 1. Wish to be (Past 1 Month) No 025 6:50 PM EDT Ankita Graham RN 2. Non-Specific Active Suici delfino Thoughts (Past 1 Month) No 02/16/2025 6:50 PM EDT Randolph Graham RN 6. Suicidal Behavior (Lifetime) No 5 6:50 PM EDT Ankita Graham RN documented as of this encounter Plan [...] documented as of this encounter Care Teams Barker Peeler Relationship Specialty Start Date End Date Placido Mercado MD [address] [place], [place] [address] PCP - General Family Medicine 01/29/25 documented as of this encounter
--- OUTSIDE RECORDS SUMMARY | 2025-03-28 10:33 | XMS_ITS | Encounter Summary ---
Author Organization [facility] Address [address] [place] [address] Care Team Providers Care Production Broacher Name Role Phone Placido Mercado MD Primary Care Provider [phone] Encounter Details Date Type Department Care Team (Late st Contact Info) Description 02/07/2025 Readmission Management [facility] [address] [place] [phone] Lauren Etienne, RN Social History Tobacco Use Types Packs/Day Years Used Date Smoking Tobacco: Former Smokeless Tobacco: Never Alcohol Use Standard Drinks/Week Comments Never 0 (1 standard drink = 0.6 oz pur e alcohol) [facility] Utilities Answer Date Recorded In the [...] care, and heating? Not very hard 02/04/2025 [facility] [place] of Occupat ional Health - Occupational Stress [...] GED or equivalent No 02/04/2025 Preferred Language Bahraini 02/04/2025 PHQ-2 Answer Date Recorded Patient Health Questionnaire-2 Score 0 02/04/2025 Comments No Sex and Gender Information Value Date Recorded Sex Assigned at Not on file Legal Sex Female 2:30 PM EDT Gender Identity Not on file Sexual Orientation Not on file documented as of this encounter Miscellaneous Notes * Outreach Note - Lauren Etienne RN - 02/07/2025 6:15 PM EDT Images from the original note were not included. Prep Survey Flowsheet Row Responses Buddhist facility patient discharged from? [place] Is LACE score < 7 ? No Eligibility Not Eligible What are the reasons patient is not eligible? Subacute Care Center [[facility]] Does the patient have one of the following disease processes/diagnoses(primary or secondary)? Other Prep survey completed? Yes Lauren Jeffery - Registered Nurse documented in this encounter Plan of Treatment [...] documented as of this encounter Care Teams Production Broacher Relationship Specialty Start Date End Date Placido Mercado MD [address] [place] [address] [address] [place], [place] [address] PCP - General Family Medicine 01/29/25 documented as of this encounter
--- OUTSIDE RECORDS SUMMARY | 2025-03-28 10:33 | XMS_ITS | Encounter Summary ---
Author Organization [facility] Address [address] [place] [address] Care Team Providers Care Branch Or Department Chief Librarian Name Role Phone Placido Mercado MD Primary Care Provider [phone] Encounter Details Date Type Department Care Team (Latest Contact Info) Description 02/03/2025 Travel Social History Tobacco Use Types Packs/Day Years Used Date Smoking Tobacco: Former Smokeless Tobacco: Never Alcohol Use Standard Drinks/Week Comments Never 0 (1 standard drink = 0.6 oz pur e alcohol) [facility] Utilities Answer Date Recorded In the past 12 months has [employer] electric, gas, oil, or water company threatened [...] care, and heating? Not very hard 02/04/2025 [facility] [place] of Occupat ional Health - Occupational Stress [...] GED or equivalent No 02/04/2025 Preferred Language Peruvian 02/04/2025 PHQ-2 Answer Date Recorded Patient Health Questionnaire-2 Score 0 02/04/2025 Comments No Sex and Gender Information Value Date Recorded Sex Assigned at Not on file Legal Sex Female 2:30 PM EDT Gender Identity Not on file Sexual Orientation Not on file documented as of this encounter Functional Status * Question Answer [...] 6:30 AM EDT Jes Noriega RN * [place] Suicide Severity Rating Scale (Screener/Recent Self-Report) Question Answer Date of Assessment Author 6. Suicidal Behavior (Lifetime) No 6:30 AM EDT Jes Noriega RN documented as of this encounter Plan of Treatment Not on file documented as of this encounter Goals Goal Patient Goal Type Associated Problems Recent Progress Patient-Stated? Author Autogenerat ed Goal Care Plan Autogenerated Problem No Refugio, Shan documented as of this encounter Visit Diagnoses Not on filedocumented in this encounter Additional Health Concerns Active Problems Noted Date Diagnosed Date Autogenerated Problem 03/06/2025 documented as of this encounter Care Teams Branch Or Department Chief Librarian Relationship Specialty Start Date End Date Placido Mercado MD [address] [place] [address] PCP - General Family Medicine 01/29/25 documented as of this encounter
--- NOTE | 2025-03-28 10:47 | CT_ITS ---
FINAL REPORT TECHNIQUE: Thin section axial CT with sagittal reconstruction without contrast This study was performed with techniques to keep radiation doses as low as reasonably achievable, (ALARA). Individualized dose reduction techniques using automated exposure control or adjustment of mA and/or kV according to the patient''s size were employed. CLINICAL HISTORY: fall, head strike on BT FINDINGS: No fracture is seen. Alignment is normal. No obvious bony spinal canal stenosis is present. There is moderate diffuse degenerative disc disease. IMPRESSION: No fracture or malalignment Reviewed, Interpreted and Dictated by Anurag Burks MD Transcribed by Evy eHrrera Authenticated and [facility]
--- NOTE | 2025-03-28 10:47 | CT_ITS ---
FINAL REPORT TECHNIQUE: Noncontrast exam This study was performed with techniques to keep radiation doses as low as reasonably achievable, (ALARA). Individualized dose reduction techniques using automated exposure control or adjustment of mA and/or kV according to the patient''s size were employed. CLINICAL HISTORY: fall, head strike on BT FINDINGS: No abnormal density is seen. There is mild generalized atrophy. Ventricles are normal. There is no hemorrhage. No mass effect is seen. Bone windows show no evidence of fracture. There is right ethmoid and right frontal sinusitis. IMPRESSION: No acute findings Reviewed, Interpreted and Dictated by Anurag Burks MD Transcribed by Evy Herrera Authenticated and [facility]
--- NOTE | 2025-03-28 10:47 | XR_ITS ---
FINAL REPORT CLINICAL HISTORY: trauma, fall COMPARISON: None FINDINGS: Three views of the right hand show no evidence of acute displaced fracture or dislocation of the visualized bony architecture. There are mild diffuse degenerative changes. Scattered small bone cysts are noted in the digits. IMPRESSION: No acute findings. Reviewed, Interpreted and Dictated by Anurag Burks MD Transcribed by Sridevi Stinson Authenticated and [facility]
--- NOTE | 2025-03-28 10:47 | XR_ITS ---
FINAL REPORT CLINICAL HISTORY: trauma, fall COMPARISON: None FINDINGS: 2 views of the right forearm were obtained. Comminuted fracture of the distal radius extending into the radiocarpal joint. Moderate dorsal angulation and displacement is noted. There is a nondisplaced ulnar styloid base fracture. The more proximal radius and ulna are intact. IMPRESSION: Distal radius and ulnar fractures. Reviewed, Interpreted and Dictated by Anurag Burks MD Transcribed by Sridevi Stinson Authenticated and [facility]
--- NOTE | 2025-03-28 10:47 | XR_ITS ---
FINAL REPORT CLINICAL HISTORY: trauma, fall COMPARISON: None FINDINGS: Two views of the right wrist were obtained. There is a comminuted fracture of the distal radius extending into the radiocarpal joint. There is moderate dorsal angulation and displacement. There is also a nondisplaced ulnar styloid base fracture. There is no acute soft tissue abnormality. IMPRESSION: Comminuted fractures of the distal radius and ulnar styloid base. Reviewed, Interpreted and Dictated by Anurag Burks MD Transcribed by Sridevi Stinson Authenticated and [facility]
--- NOTE | 2025-03-28 10:47 | XR_ITS ---
FINAL REPORT CLINICAL HISTORY: trauma, fall COMPARISON: None FINDINGS: 2 views of the right elbow were obtained. There is no acute fracture or dislocation. There are mild degenerative changes. The soft tissues are unremarkable. IMPRESSION: No acute bony abnormality. Reviewed, Interpreted and Dictated by Anurag Burks MD Transcribed by Sridevi Stinson Authenticated and [facility]
[2025-03-28] MEDS: 0.9 % SODIUM CHLORIDE 1000ML 1,000 ML 999 ML IV (11:02)
[2025-03-28] MEDS: ONDANSETRON 4MG/2ML VIAL 4 MG IV (11:02)
[2025-03-28] MEDS: FENTANYL 100MCG/2ML VIAL 50 MCG IV (11:02)
[2025-03-28 11:04] LABS: Hematocrit 27.7 % (37.0-47.0); Hemoglobin 8.7 g/dL (12.2-16.2); Immature Granulocytes % 1.0 %; Mean Corpuscular HGB Conc 31.4 g/dL (31.8-35.4); Mean Corpuscular Hemoglobin 27.2 pg (27.0-31.2); Mean Corpuscular Volume 86.6 fl (81-99); Nucleated Red Blood Cells % 0 %; Platelet Count 376 K/mm3 (142-424); Red Blood Count 3.20 M/mm3 (4.20-5.40); Red Cell Distribution Width-SD 44.0 fL; White Blood Count 5.8 K/mm3 (4.8-10.8)
--- NOTE | 2025-03-28 11:04 | ECG_ITS ---
APPROVED REPORT Exam: Resting ECG HR:85 bpm ECG Measurements Heart Rate 85 AXES OH 133 P 55 QRSd 94 QRS 53 QT 371 T 30 QTc 413 Conclusion SINUS RHYTHM NORMAL ECG UNCONFIRMED REPORT Electronically signed by : Billy Blum, 03/28/2025 16:46:35
[2025-03-28 11:10] LABS: Albumin Level 3.1 g/dl (3.5-5.0); Chloride 98 mmol/L (98-107); Potassium 3.8 mmoL/L (3.5-5.1); Sodium 130 mmol/L (136-145)
[2025-03-28 11:13] LABS: Alanine Aminotransferase 18 U/L (12-78); Albumin/Globulin Ratio 1.1 (1.1-1.8); Alkaline Phosphatase 89 U/L (38-126); Anion Gap 9.8 mEq/L (5-15); Aspartate Amino Transferase 21 U/L (14-36); Blood Urea Nitrogen 21 mg/dl (7-17); Calcium 8.9 mg/dl (8.4-10.2); Carbon Dioxide 26 mmol/L (22.0-30.0); Creatinine Clearance Estimated 59 mL/min (50-200); Creatinine,Serum 0.80 mg/dl (0.52-1.04); Estimated Glomerular Filt Rate 70 ml/min (>60); GFR (African American) 84 ML/MIN (>60); Globulin 2.9 g/dL (1.3-3.2); Glucose 121 mg/dl (74-100); Total Protein,Serum 6.0 g/dl (6.3-8.2)
[2025-03-28 11:15] LABS: INR 1.08 (0.9-1.1); Prothrombin Time 11.9 seconds (10.1-12.5)
[2025-03-28 11:17] LABS: Bilirubin,Total 0.1 mg/dl (0.2-1.3)
[2025-03-28 11:18] LABS: Magnesium 1.3 mg/dl (1.6-2.3)
[2025-03-28 11:28] LABS: Troponin I < 0.01 ng/ml (0.00-0.034)
[2025-03-28 11:45] LABS: Thyroid Stimulating Hormone 1.74 uIU/mL (0.465-4.68)
[2025-03-28 12:00] LABS: Free T4 (Free Thyroxine) 1.50 ng/dl (0.78-2.19)
--- NOTE | 2025-03-28 13:07 | PC.NURSE ---
Consent for Right Wrist Reduction with Conscious Sedation complete and placed on chart.
--- NOTE | 2025-03-28 13:22 | PC.NURSE ---
Patient moved to Room 1 to prepare for conscious sedation, patient placed on monitor. Intubation box, Ambu bag, and CO2 monitoring in place and at bedside.
--- NOTE | 2025-03-28 13:54 | PC.NURSE ---
Patient placed on 4L NC for hyper-oxygenation prior to sedation per Dr. Blum's verbal order.
[2025-03-28] MEDS: KETAMINE 50MG/1ML SYRINGE 100 MG IV (14:25)
--- NOTE | 2025-03-28 14:38 | XR_ITS ---
FINAL REPORT CLINICAL HISTORY: Post reduction splint COMPARISON: 4 hours prior FINDINGS: Two views of the right wrist were obtained. There has been interval closed reduction of the distal radius fracture with near anatomic reduction are noted. There has been interval application of plaster cast. No subluxation or dislocation is noted. IMPRESSION: Closed reduction distal radius fracture with near anatomic alignment. Reviewed, Interpreted and Dictated by Anurag Burks MD Transcribed by Sridevi Stinson Authenticated and [facility]
--- NOTE | 2025-03-28 15:00 | PC.NURSE ---
Patient alert and oriented, vital signs stable, respirations even and unlabored, patient remains on 4L NC at this time.
[2025-03-28] MEDS: OXYCODONE 5MG IMMEDIATE RELEASE TABLET 5 MG PO (15:51)
--- NOTE | 2025-03-28 15:52 | PC.NURSE ---
Patient alert and oriented, sitting up in bed drinking water. VSS. Son at bedside.
--- NOTE | 2025-03-28 16:10 | PC.WOUNDNOTE ---
Patient alert and oriented, remains at baseline. VSS. Respirations even and unlabored. Patient discharged home with son. Advised to call Orthopedics upon arrival home and return to ED as needed. Sling applied to right arm. Patient and son educated on monitoring circulation. Patient denies complaints/concerns upon departure.
== END 2025-03-28 16:14 | disposition home or self-care (01) ==
PROVIDERS: Emergency Provider Emergency Medicine; PCP Family Medicine
DX: S52.571A Other intraarticular fracture of lower end of right radius, initial encounter for closed fracture (principal); S52.611A Displaced fracture of right ulna styloid process, initial encounter for closed fracture; R42 Dizziness and giddiness; I10 Essential (primary) hypertension; E78.5 Hyperlipidemia, unspecified; W18.30XA Fall on same level, unspecified, initial encounter
CPT/HCPCS: 70450; 72125; 73070; 73090; 73100; 73130; 80053; 83735; 84439; 84443; 84484; 85025; 85610; 93005; 96361; 96374; 96375; 99152; 99285; J2405; J3010; J7030

== ENCOUNTER 2025-04-03 13:59 | Outpatient (POV) | payer MEDICARE, SELFPAY ==
--- OUTSIDE RECORDS SUMMARY | 2025-02-03 05:14 | XMS_ITS | Encounter Summary ---
Author Organization [facility] Address [address] [place] [address] Care Team Providers Care Geological E Logger Name Role Phone Placido Mercado MD Primary Care Provider [phone] Reason for Visit * Auth/Cert Specialty Diagnoses / Procedures Referred By Contac t Referred To Contact Procedures MS ARTHRODESIS COMBINED TQ [id number] LUMBAR L 4-5 REVISION DECOMPRESSION WITH REVISED FUSION WITH PEDICLE SCREWS, CEMENT AUGMENTATION AND POSSIBLE EXTENSION OF FUSION Referral ID Status Reason Start Date Expiration Date Visits Re quested Visits Authorized [id number] 1 1 Encounter Details Date Type Department Care Team (Late st Contact Info) Description 02/03/2025 5:14 AM EDT - 02/07/2025 3:28 PM EDT Hospital Encounter [address] [place] [id number] Viin Peterson MD [address] [facility] TITI [address] [place] [id number] S/P lumbar spinal fusion (revision decompression L4-5, posterior lateral fusion L4-5) (Primary Dx) Discharge Disposition: [facility] (DC - External) Social History Tobacco Use Types Packs/Day Years Used Date Smoking Tobacco: Former Smokeless Tobacco: Never Alcohol Use Standard Drinks/Week Comments Never 0 (1 standard drink = 0.6 oz pur e alcohol) [facility] Utilities Answer Date Recorded In the past [...] care, and heating? Not very hard 02/04/2025 [facility] - Occupational Stress [...] GED or equivalent No 02/04/2025 Preferred Language Burkinan 02/04/2025 PHQ-2 Answer Date Recorded Patient Health [...] 6:30 AM EDT Jes Noriega RN * [place] Suicide Severity Rating Scale (Screener/Recent Self-Report) Question [...] Levels Completed:1 Level Surgeon: Vini Peterson MD Computer Systems Information Director: Harman Kirk PA-C to assist with retraction, [...] best functional outcome. Anticipated Discharge Disposition (PT): fdc facility Discharge Assessment: Visit Vitals BP 136/84 [...] Female) Date of 1945 Social Security Number [id number] [place] [id number] [employer] Marital Status Single Admission Date 02/03/2025 Admission Type Elective Admitting Provider Vini Peterson MD Attending Provider Vini Peterson MD Department, Room/Bed [address], S362/1 Discharge Date Discharge Disposition Discharge [...] HU[employer] MEDICARE REPLACEMENT [employer] MEDICARE ADVANTAGE PPO [id number] Payor Plan Address Payor Plan Phone Number Payor Plan Fax Number Effective Dates [address] [address] 09/04/2024 - None Entered [facility] [id number] Subscriber Name Subscriber Date Member ID GLADYS MENDES 1945 [id number] Emergency Contacts Residency Program Coordinator (Rel.) Home Phone Work Phone Mobile Phone Carolann Stanton (Daughter) -- -- [phone] Orlando Mendes -- -- [phone] History & Physical Pavithra Oakes MD at 02/03/25 0303 Patient Name: Gladys Mendes : 1945 DOS: [...] by mouth Every Night. 02/02/2025 Evening Coenzyme H26-Fjqeawm E (QUNOL ULTRA COQ10 PO) Take 100 [...] AND ALLOGRAFTL4-5; Surgeon: Vini Peterson MD; Location: [facility]; Service: Orthopedic Spine; Laterality: N/A; MASTOIDECTOMY Left [...] of this encounter note is an electronic stack matcher/translation of spoken language to printed text. The electronic translation of spoken language may permit erroneous, or at times, nonsensicalwords or phrases to be inadvertently transcribed; Although I have reviewed the note for such errors, some may still exist. Pavithra Oakes MD 02/03/25 17:34 EDT 7434 Vini Peterson MD at 02/03/25 0650 Pre-Op H&P Gladys Mendes [id number] 1945 Chief complaint: Back pain Subjective: Patient [...] by mouth Every Night. 02/02/2025 Evening Coenzyme W55-Fsyjpue E (QUNOL ULTRA COQ10 PO) Take 100 [...] AND ALLOGRAFTL4-5; Surgeon: Vini Peterson MD; Location: [facility]; Service: Orthopedic Spine; Laterality: N/A; MASTOIDECTOMY Left [...] 02/05/25 1102 IM progress note Gladys Mendes [id number] 1945 LOS: 2 days Attending: Vini Peterson [...] AND ALLOGRAFTL4-5; Surgeon: Vini Peterson MD; Location: [facility]; Service: Orthopedic Spine; Laterality: N/A; LUMBAR DISCECTOMY FUSION INSTRUMENTATION N/A 02/03/2025 Procedure: REVISION DECOMPRESSION WITH REVISED FUSION WITH PEDICLE SCREWS WITH CEMENT AUGMENTATION,AND HARDWARE REVISION L4-5; Surgeon: Vini Peterson MD; Location: [facility]; Service: Orthopedic Spine; Laterality: N/A; MASTOIDECTOMY Left [...] Row Name 02/05/25 1010 Sit-Stand Transfer Sit-Stand [place] (Transfers) contact guard;nonverbal cues (demo/gesture);verbal cues -ND Assistive Device (Sit-Stand Transfers) walker, front-wheeled -ND Comment, (Sit-Stand Transfer) x1 from chair, x1 from toilet. Increased time for upright posture dueto pain. -[place] Row Name 02/05/25 1010 Gait/Stairs (Locomotion) [place] Level (Gait) minimum assist (75% patient effort);verbal [...] Therapist Physical Therapy Education Title: PT OT YARD COORDINATOR Therapies (In Progress) Topic: Physical Therapy (Done) [...] PT Received On 02/05/25 - Timed Charges 06277 - PT Therapeutic Exercise Minutes 10 -ND 19715 - Gait Training Minutes 15 -ND 36710 - PT Therapeutic Activity Minutes 15 -ND Total Minutes Timed Charges Total Minutes 40 -ND Total Minutes 40 -ND User Metcalf (r) = Recorded By, (t) = Taken By, (c) = Cosigned By Initials Name Provider Type ND Amaris Reyes PT Physical Therapist Therapy Charges for Today Code Description Service Date Service Provider Modifiers Qty 10341689644 HC GAIT TRAINING EA 15 MIN 02/04/2025 Amaris Reyes, PT GP 1 45670790376 HC PT THERAPEUTIC ACT EA 15 MIN 02/04/2025 Amaris Reyes, PT GP 1 30182302332 HC PT THER PROC EA 15 MIN 02/05/2025 Amaris Reyes, PT GP 1 04578055749 HC GAIT TRAINING EA 15 MIN 02/05/2025 Amaris Reyes, PT GP 1 24365085106 HC PT THERAPEUTIC ACT EA 15 MIN 02/05/2025 Amaris Reyes, PT GP 1 PT G-Codes Outcome Measure Options: AM-PAC 6 Clicks Basic Mobility (PT) AM-PAC 6 Clicks Score (PT): 17 AM-PAC 6 Clicks Score (OT): 20 PT Discharge Summary Anticipated Discharge Disposition (PT): fdc facility Amaris Reyes, PT 02/05/2025 1025 Occupational [...] AND ALLOGRAFTL4-5; Surgeon: Vini Peterson MD; Location: [facility]; Service: Orthopedic Spine; Laterality: N/A; LUMBAR DISCECTOMY FUSION INSTRUMENTATION N/A 02/03/2025 Procedure: REVISION DECOMPRESSION WITH REVISED FUSION WITH PEDICLE SCREWS WITH CEMENT AUGMENTATION,AND HARDWARE REVISION L4-5; Surgeon: Vini Peterson MD; Location: [facility]; Service: Orthopedic Spine; Laterality: N/A; MASTOIDECTOMY [...] Bed Mobility rolling right;scooting/bridging;supine-sit - Rolling Right [place] (Bed Mobility) verbal cues;minimum assist (75% patient effort) - Scooting/Bridging [place] (Bed Mobility) standby assist;verbal cues - Supine-Sit [place] (Bed Mobility) minimum assist (75% patient effort);nonverbal cues (demo/gesture);verbal cues - Assistive Device (Bed Mobility) bed rails;head of bed elevated - Comment, (Bed Mobility) Increased time and effort secondary to pain; verbal cues for log roll and sequencing; Min A for trunk - Row Name 02/04/2577 Transfers Transfers sit-stand transfer;stand-sit transfer;toilet transfer - Row Name 02/04/25946 Sit-Stand Transfer Sit-Stand [place] (Transfers) verbal cues;contact guard -SA Assistive Device (Sit-Stand Transfers) walker, front-wheeled -SA Comment, (Sit-Stand Transfer) VC for hand placement; 1x from EOB, 1x from chair to complete LBD - Row Name 02/04/25946 Stand-Sit Transfer Stand-Sit [place] (Transfers) verbal cues;contact guard -SA Assistive Device (Stand-Sit Transfers) walker, front-wheeled -SA Comment, (Stand-Sit Transfer) VC to reach back for arm rests of chair - Row Name 02/04/25946 Toilet Transfer Type (Toilet Transfer) sit-stand;stand-sit -SA [place] Level (Toilet Transfer) verbal cues;contact guard -SA Assistive Device (Toilet Transfer) grab bars/safety frame;raised toilet seat - Comment, (Toilet Transfer) VC for sequencing - Row Name 02/04/25946 Functional Mobility Functional Mobility- Ind. Level contact guard assist - Functional Mobility- Device walker, front-wheeled -SA Functional Mobility-Distance (Feet) -- To/from restroom within room - Patient was able to Ambulate yes -[facility] Name 02/04/25946 Activities of Daily Living BADL Assessment/Intervention upper body dressing;lower body dressing;grooming;toileting -[facility] Name 02/04/25946 Upper Body Dressing Assessment/Training [place] Level (Upper Body Dressing) doff;don;bra/undergarment;pull-over garment;minimum assist(75% patient effort) - Position (Upper Body Dressing) unsupported sitting - Row Name 02/04/25946 Lower Body Dressing Assessment/Training [place] Level (Lower Body Dressing) don;pants/bottoms;verbal cues;minimum assist (75% patient effort) - Assistive Devices (Lower Body Dressing) valve liner rubber - Position (Lower Body Dressing) unsupported sitting - Comment, (Lower Body Dressing) Pt educated on spinal precautions for LBD; pt provided AE for LBD; pt practiced with valve liner rubber and completed LBD with reach, Min A, and verbal cues; pt needs education and practice with sock aid and long handled shoe horn - Row Name 06/03/25 0947 Grooming Assessment/Training [place] Level (Grooming) wash face, hands;contact guard assist -SA Position (Grooming) sink side -SA Row Name 02/04/25 0947 Toileting Assessment/Training [place] Level (Toileting) perform perineal hygiene;standby assist -SA [...] Balance No LOB at this [facility] -SA User Metcalf (r) = Recorded By, (t) = Taken By, (c) = Cosigned By Initials Name Provider Type Winter Galvan OT Occupational Therapist Goals/Plan Row Name 02/04/25 1114 Bed Mobility Goal 1 (OT) Activity/Assistive Device (Bed Mobility Goal 1, OT) bed mobility activities, all -SA [place] Level/Cues Needed (Bed Mobility Goal 1, OT) independent -SA Time Frame (Bed Mobility Goal 1, OT) technician terminal and repeater goal (LTG);10 days -SA Progress/Outcomes (Bed Mobility Goal 1, OT) new goal - Row Name 02/04/25 1114 Bathing Goal 1 (OT) Activity/Device (Bathing Goal 1, OT) bathing skills, all -SA [place] Level/Cues Needed (Bathing Goal 1, OT) independent -SA Time Frame (Bathing Goal 1, OT) detention goal (LTG);10 days -SA Progress/Outcomes (Bathing Goal 1, OT) new goal - Row Name 02/04/25 1114 Dressing Goal 1 (OT) Activity/Device (Dressing Goal 1, OT) dressing skills, all -SA [place]/Cues Needed (Dressing Goal 1, OT) independent -SA Time Frame (Dressing Goal 1, OT) technician terminal and repeater goal (LTG);10 days -SA Progress/Outcome (Dressing Goal 1, OT) [facility] - Row Name 02/04/25 111 Problem Specific Goal 1 (OT) Problem Specific Goal 1 (OT) Pt will recall 3/3 spinal precautions without cues -SA Time Frame (Problem Specific Goal 1, OT) short term goal (STG);5 days -SA Progress/Outcome (Problem Specific Goal 1, OT) [facility] -[facility] Name 02/04/25 1114 Therapy Assessment/Plan (OT) Planned Therapy Interventions (OT) activity tolerance training;adaptive equipment training;BADL retraining;functional balance retraining;occupation/activity based interventions;patient/caregiver educa tion/training;ROM/therapeutic exercise;strengthening exercise;transfer/mobility retraining - User Metcalf (r) = Recorded By, (t) = Taken By, (c) = Cosigned By Initials Name Provider Type SA Winter Burton, OT Occupational Therapist Clinical Impression Row Name 02/04/25 0958 Pain Assessment Pretreatment Pain Rating 2/10 -SA Posttreatment Pain Rating 6/10 -SA Pain Location back -SA Pain Side/Orientation lower -SA Pain Management Interventions activity modification encouraged;exercise or physical activity utilized;positioning techniques utilized;nursing notified - Response to Pain Interventions activity participation with tolerable pain - Row Name 02/04/25 0966 Plan of Care Review Plan of Care [...] fxnl status. OT recommends SNF at discharge. -[facility] Name 02/04/25 0957 Therapy Assessment/Plan (OT) Rehab Potential (OT) good - Criteria for Skilled Therapeutic Interventions Met (OT) yes;meets criteria;skilled treatment is necessary - Therapy Frequency (OT) daily - Predicted Duration of Therapy Intervention (OT) 10 days -[facility] Name 02/04/25 0957 Therapy Plan Review/Discharge Plan (OT) Anticipated Discharge Disposition (OT) fdc facility -[facility] Name 02/04/2557 Vital Signs Pre Systolic BP Rehab 120 -SA Pre Treatment Diastolic BP 66 -SA Pre SpO2 (%) 96 -SA O2 Delivery Pre Treatment room air - Pre Patient Position Supine -[facility] Name 02/04/2557 Positioning and Restraints Pre-Treatment Position [...] Therapist Occupational Therapy Education Title: PT OT YARD COORDINATOR Therapies (In Progress) Topic: Occupational Therapy (In [...] Re-Cert Due Date 02/14/25 - Timed Charges 91216 - OT Self Care/Mgmt Minutes 15 -SA [...] Description Service Date Service Provider Modifiers Qty [id number] OT SELF CARE/MGMT/TRAIN EA 15 MIN 02/04/2025 Winter Burton OT GO 1 30272678667 HC-OT EVAL MOD COMPLEXITY 5 02/04/2025 Winter [...] through Care Everywhere. * Laminectomy Care After (Burkinan) * Incision Care Adult Josf-ue-Idkf (Burkinan) * How to Use a Walker (Burkinan) * Fall Prevention in the Home Adult Aeck-sq-Rcxv (Burkinan) documented in this encounter Medications at Time [...] if polyethylene glycol is ineffective). 02/07/2025 Coenzyme R95-Msemtmz E (QUNOL ULTRA COQ10 PO) Take 100 [...] PM EDT IM progress note Gladys Mendes [id number] 1945 LOS: 3 days Attending: Vini Peterson [...] Monitor post-op labs 7. Discharge planning for Seth tomorrow - Hypertension: Resume home medications as [...] hours) Procedure Component Value Units Date/Time Potassium [[id number]] (Normal) Collected: 02/05/2559 Specimen: Blood Updated: 02/05/25824 [...] AM EDT IM progress note Gladys Mendes [id number] 1945 LOS: 2 days Attending: Vini Peterson [...] Formulary substitution when indicated. - Mild hypokalemia- rose Robertson APRN 02/05/25 11:05 EDT * Vini [...] hours) Procedure Component Value Units Date/Time Potassium [[id number]] Collected: 02/05/25 0659 Specimen: Blood Updated: 02/05/25 0758 Physical Exam: Continued partial left foot drop [...] not included. IM progress note Gladys Mendes [id number] 1945 LOS: 1 day Attending: Vini Peterson MD Primary Care Provider: [...] SNF following d/c. Anticipated Discharge Disposition (PT): fdc facility Physical Exam: General Appearance: Alert, cooperative, [...] Component Value Units Date/Time Basic Metabolic Panel [[id number]] (Abnormal) Collected: 02/04/25614 Specimen: Blood Updated: 02/04/25700 [...] as a factor Hemoglobin & Hematocrit, Blood [[id number]] (Abnormal) Collected: 02/04/25614 Specimen: Blood Updated: 02/04/25636 Hemoglobin 9.7 g/dL Hematocrit 31.1 % Physical Exam: Continued partial left foot drop which is chronic, otherwise Neurovascular intact. Calves soft, non-tender. Assessment & Plan Doing pretty well on POD #1 all things considered. Needs to continue to work with PT/OT and nursing to mobilize. Will leave drain in today. hse manager to evaluate for home needs vs. [...] by mouth Every Night. 02/02/2025 Evening Coenzyme C31-Gqmiymh E (QUNOL ULTRA COQ10 PO) Take 100 [...] AND ALLOGRAFTL4-5; Surgeon: Vini Peterson MD; Location: [facility]; Service: Orthopedic Spine; Laterality: N/A; MASTOIDECTOMY Left [...] of this encounter note is an electronic stack matcher/translation of spoken language to printed text. The electronic translation of spoken language may permit erroneous, or at times, nonsensicalwords or phrases to be inadvertently transcribed; Although I have reviewed the note for such errors, some may still exist. Pavithra Oakes MD 02/03/25 17:34 EDT * Vini Peterson MD - 02/03/2025 6:50 AM EDT Pre-Op H&P Gladys Mendes [id number] 1945 Chief complaint: Back pain Subjective: Patient [...] by mouth Every Night. 02/02/2025 Evening Coenzyme H25-Apskhqf E (QUNOL ULTRA COQ10 PO) Take 100 [...] AND ALLOGRAFTL4-5; Surgeon: Vini Peterson MD; Location: [facility]; Service: Orthopedic Spine; Laterality: N/A; MASTOIDECTOMY Left [...] FOR BEST OUTCOME. Anticipated Discharge Disposition (PT): fdc facility * Loren Floyd RN - 02/06/2025 [...] Taken 02/06/2025 1210 by Loren Floyd RN Pressure Reduction Techniques: [...] return to OF. Anticipated Discharge Disposition (OT): fdc facility * Amaris Reyes, PT - 02/06/2025 [...] best functional outcome. Anticipated Discharge Disposition (PT): fdc facility * Essence Hernandez RN - 02/06/2025 [...] shift encouraged Head of Bed (HOB) Positioning: [facility] elevated Pressure Reduction Devices: pressure-redistributing mattress utilized positioning supports utilized Skin Protection: incontinence pads utilized silicone foam dressing in place transparent dressing maintained Taken 02/05/2025 1230 by Loren Floyd RN Pressure Reduction Techniques: frequent weight shift encouraged Head of Bed (HOB) Positioning: [facility] elevated Pressure Reduction Devices: pressure-redistributing mattress utilized positioning supports utilized Skin Protection: incontinence pads utilized silicone foam dressing in place transparent dressing maintained Taken 02/05/2025 1014 by Loren Floyd RN Pressure Reduction Techniques: frequent weight shift encouraged Head of Bed (HOB) Positioning: [facility] elevated Pressure Reduction Devices: pressure-redistributing mattress utilized positioning supports utilized Skin Protection: incontinence pads utilized silicone foam dressing in place transparent dressing maintained Taken 02/05/2025 0803 by Loren Floyd RN Pressure Reduction Techniques: frequent weight shift encouraged Head of Bed (HOB) Positioning: [facility] elevated Pressure Reduction Devices: pressure-redistributing mattress utilized [...] best functional outcome. Anticipated Discharge Disposition (PT): fdc facility * Corie Mast RN - 02/05/2025 [...] SNF following d/c. Anticipated Discharge Disposition (PT): fdc facility * Winter Burton OT - 02/04/2025 [...] SNF at discharge. Anticipated Discharge Disposition (OT): fdc facility * Corie Mast RN - 02/04/2025 [...] overall functional mobility. Anticipated Discharge Disposition (PT): fdc facility documented in this encounter OR Notes [...] Levels Completed:1 Level Surgeon: Vini Peterson MD Computer Systems Information Director: Harman Kirk PA-C to assist with retraction, [...] the decompression was mixed with purified allograft ([place]) and placed in the lateral gutters over [...] Consult Dr. Nichols for medical management. Consult case liner for home needs vs Rehab Placement. Vini [...] AND ALLOGRAFTL4-5; Surgeon: Vini Peterson MD; Location: [facility]; Service: Orthopedic Spine; Laterality: N/A; LUMBAR DISCECTOMY FUSION INSTRUMENTATION N/A 02/03/2025 Procedure: REVISION DECOMPRESSION WITH REVISED FUSION WITH PEDICLE SCREWS WITH CEMENT AUGMENTATION,AND HARDWARE REVISION L4-5; Surgeon: Vini Peterson MD; Location: [facility]; Service: Orthopedic Spine; Laterality: N/A; MASTOIDECTOMY Left [...] 1153 Bed Mobility Comment, (Bed Mobility) PT [facility]. REVIEWED LOG ROLLING TECHNIQUE FOR SUPINE<>SIT. -CD Row Name 02/07/25 1153 Transfers Comment, (Transfers) CUES FOR HAND PLACEMENT. STS FROM RECLINER AND COMMODE IN BATHROOM. -CD Row Name 02/07/25 1153 Sit-Stand Transfer Sit-Stand [place] (Transfers) contact guard;verbal cues -CD Assistive Device (Sit-Stand Transfers) walker, front-wheeled -CD Comment, (Sit-Stand Transfer) CUES FOR UPRIGHT POSTURE. INCREASED PAIN L LE. -CD Row Name 02/07/25 1153 Gait/Stairs (Locomotion) [place] Level (Gait) verbal cues;nonverbal cues (demo/gesture);contact guard [...] Nurse Physical Therapy Education Title: PT OT YARD COORDINATOR Therapies (Done) Topic: Physical Therapy (Done) Point: [...] Minutes- PT 48 minute(s) -CD Timed Charges 01743 - PT Therapeutic Exercise Minutes 10 -CD 82722 - Gait Training Minutes 20 -CD 58560 - PT Therapeutic Activity Minutes 18 -CD Total Minutes Timed Charges Total Minutes 48 -CD Total Minutes 48 -CD User Metcalf (r) = Recorded By, (t) = Taken By, (c) = Cosigned By Initials Name Provider Type CD Angela Avila, PT Physical Therapist Therapy Charges for Today Code Description Service Date Service Provider Modifiers Qty [id number] HC PT THER PROC EA 15 MIN 02/07/2025 Angela Avila, PT GP 1 16745405638 HC GAIT TRAINING EA 15 MIN 02/07/2025 Angela Avila, PT GP 1 53739009633 HC PT THERAPEUTIC ACT EA 15 MIN 02/07/2025 Angela Avila, PT GP 1 PT G-Codes Outcome Measure Options: AM-PAC 6 Clicks Basic Mobility (PT) AM-PAC 6 Clicks Score (PT): 17 AM-PAC 6 Clicks Score (OT): 20 PT Discharge Summary Anticipated Discharge Disposition (PT): fdc facility Angela Avila PT 02/07/2025 * Therapy [...] AND ALLOGRAFTL4-5; Surgeon: Vini Peterson MD; Location: [facility]; Service: Orthopedic Spine; Laterality: N/A; LUMBAR DISCECTOMY FUSION INSTRUMENTATION N/A 02/03/2025 Procedure: REVISION DECOMPRESSION WITH REVISED FUSION WITH PEDICLE SCREWS WITH CEMENT AUGMENTATION,AND HARDWARE REVISION L4-5; Surgeon: Vini Peterson MD; Location: [facility]; Service: Orthopedic Spine; Laterality: N/A; MASTOIDECTOMY [...] Row Name 02/06/25 152 Sit-Stand Transfer Sit-Stand [place] (Transfers) contact guard;verbal cues;nonverbal cues (demo/gesture) -MR [...] Name 02/06/25 1522 Upper Body Dressing Assessment/Training [place] Level (Upper Body Dressing) don;doff;minimum assist (75% patient effort);pajama/robe -MR Position (Upper Body Dressing) unsupported standing -MR Row Name 02/06/25 152 Lower Body Dressing Assessment/Training [place] Level (Lower Body Dressing) don;doff;shoes/slippers;socks;dependent (less than 25% patient effort) -MR Assistive Devices (Lower Body Dressing) long-handled shoe horn;valve liner rubber;sock-aid -MR Position (Lower Body Dressing) supported sitting -MR Comment, (Lower Body Dressing) OT re-educated pt on use of AE for increased I and safety w/ ADLs while limited by spinal precautions. -MR Row Name 02/06/25 152 Toileting Assessment/Training [place] Level (Toileting) perform perineal hygiene;toileting skills -MR Assistive Devices (Toileting) toilet paper aid -MR Comment, (Toileting) OT issued and educated pt on use of toilet paper aide for increased I and safety w/ toileting task while being limited by spinal precautions. -MR Row Name 02/06/25 152 Bathing Assessment/Intervention [place] Level (Bathing) bathing skills -MR Comment, (Bathing) [...] Review/Discharge Plan (OT) Anticipated Discharge Disposition (OT) fdc facility -MR Row Name 02/06/251536 Vital Signs [...] Therapist Occupational Therapy Education Title: PT OT YARD COORDINATOR Therapies (In Progress) Topic: Occupational Therapy (In [...] Received On 02/06/25 -MR -- Timed Charges 84880 - Gait Training Minutes -- 16 -ND 34098 - OT Therapeutic Activity Minutes 18 -MR -- 28736 - OT Self Care/Mgmt Minutes 20 -MR [...] Description Service Date Service Provider Modifiers Qty 21384067559 HC OT THERAPEUTIC ACT EA 15 MIN 02/06/2025 Sheba Vasquez OT GO 1 84254043904 HC OT SELF CARE/MGMT/TRAIN EA 15 MIN 02/06/2025 Sheba Vasquez OT GO 2 Sheba Vasquez OT 02/06/2025 * Case Management/Social Work - Kristy Ramirez RN - 02/06/2025 2:23 PM EDT Case Management Discharge Note Final Note: Plan to transfer to [facility], skilled rehab on 02-07, insurance approved. Call report to [phone] and fax d/c summary [phone]. Transportation arranged with [facility] van and moss picker is 1530 on 02-06. Please have patient at the [address], Maternity Entrance by 1520. I talked with patient's and updated. I called patient's dtr and updated her on discharge. Selected Continued Care - Admitted Since 02/03/2025 Destination Coordination complete. Service Provider Services Address Phone Fax Patient Preferred [facility] [phone] [facility] [place] , [facility] [phone] -- Durable Medical Equipment No services [...] selected for the patient. Transportation Services Ambulance: [facility] Transportation Final Discharge Disposition Code: 03 - fdc facility (SNF) * Therapy Treatment Note - [...] AND ALLOGRAFTL4-5; Surgeon: Vini Peterson MD; Location: [facility]; Service: Orthopedic Spine; Laterality: N/A; LUMBAR DISCECTOMY FUSION INSTRUMENTATION N/A 02/03/2025 Procedure: REVISION DECOMPRESSION WITH REVISED FUSION WITH PEDICLE SCREWS WITH CEMENT AUGMENTATION,AND HARDWARE REVISION L4-5; Surgeon: Vini Peterson MD; Location: [facility]; Service: Orthopedic Spine; Laterality: N/A; MASTOIDECTOMY Left x3 TUBAL ABDOMINAL LIGATION General Information Row Name 02/06/25133502/06/25 6808 Physical Therapy Time and Intention Document Type -- -ND therapy note (daily note) -ND Mode of Treatment -- -ND physical therapy -ND Row Name 02/06/25133502/06/25 1978 General Information Patient Profile Reviewed -- -ND [...] Row Name 02/06/25 1401 Sit-Stand Transfer Sit-Stand [place] (Transfers) contact guard;verbal cues;nonverbal cues (demo/gesture) -ND Assistive Device (Sit-Stand Transfers) walker, front-wheeled -ND Comment, (Sit-Stand Transfer) from chair, from toilet. Increased pain in standing. -ND Row Name 02/06/25 1401 Gait/Stairs (Locomotion) [place] Level (Gait) minimum assist (75% patient effort);verbal [...] Therapist Physical Therapy Education Title: PT OT YARD COORDINATOR Therapies (In Progress) Topic: Physical Therapy (Done) [...] PT Received On 02/06/25 -ND Timed Charges 06982 - Gait Training Minutes 16 -ND 10048 - PT Therapeutic Activity Minutes 10 -ND Total Minutes Timed Charges Total Minutes 26 -ND Total Minutes 26 -ND User Metcalf (r) = Recorded By, (t) = Taken By, (c) = Cosigned By Initials Name Provider Type ND Amaris Reyes PT Physical Therapist Therapy Charges for Today Code Description Service Date Service Provider Modifiers Qty 20003451752 HC PT THER PROC EA 15 MIN 02/05/2025 Amaris Reyes, PT GP 1 50694140094 HC GAIT TRAINING EA 15 MIN 02/05/2025 Amaris Reyes, PT GP 1 [id number] HC PT THERAPEUTIC ACT EA 15 MIN 02/05/2025 Amaris Reyes, PT GP 1 33483664679 HC GAIT TRAINING EA 15 MIN 02/06/2025 Amaris Reyes, PT GP 1 37951059660 HC PT THERAPEUTIC ACT EA 15 MIN 02/06/2025 Amaris Reyes, PT GP 1 PT G-Codes Outcome Measure Options: AM-PAC 6 Clicks Basic Mobility (PT) AM-PAC 6 Clicks Score (PT): 17 AM-PAC 6 Clicks Score (OT): 20 PT Discharge Summary Anticipated Discharge Disposition (PT): fdc facility Amaris Reyes PT 02/06/2025 * Case Management/Social Work - David Noel, RN - 02/05/2025 2:42 PM EDT Continued Stay Note [facility] Patient Name: Gladys Mendes Today's Date: 02/05/2025 Admit Date: 02/03/2025 Plan: skilled rehab at [facility] in [place], pending insurance approval Discharge Plan Row Name 02/05/25 1440 Plan Plan skilled rehab at [facility], pending insurance approval Patient/Family in Agreement with Plan yes Plan Comments Met with patient and her family at the bedside to discuss discharge plan. Patient is agreeable to therapy's recommendation for inpatient rehab. Referrals given to Edyta with [facility] and Jes with [facility]. Patient accepts bed offer to [facility] in [place]. CM will initiate precertification for insurance approval today. CM will continue to follow and assist with discharge planning. Final Discharge Disposition Code 03 - fdc facility (SNF) Discharge Codes No documentation. David [...] AND ALLOGRAFTL4-5; Surgeon: Vini Peterson MD; Location: [facility]; Service: Orthopedic Spine; Laterality: N/A; LUMBAR DISCECTOMY FUSION INSTRUMENTATION N/A 02/03/2025 Procedure: REVISION DECOMPRESSION WITH REVISED FUSION WITH PEDICLE SCREWS WITH CEMENT AUGMENTATION,AND HARDWARE REVISION L4-5; Surgeon: Vini Peterson MD; Location: [facility]; Service: Orthopedic Spine; Laterality: N/A; MASTOIDECTOMY Left x3 TUBAL ABDOMINAL LIGATION General Information Row Name 02/05/25 1010 Physical Therapy Time and Intention Document Type therapy note (daily note) -ND Mode of Treatment physical therapy -[place] Row Name 02/05/25 1010 General Information Patient [...] Row Name 02/05/25 1010 Sit-Stand Transfer Sit-Stand [place] (Transfers) contact guard;nonverbal cues (demo/gesture);verbal cues -ND Assistive Device (Sit-Stand Transfers) walker, front-wheeled -ND Comment, (Sit-Stand Transfer) x1 from chair, x1 from toilet. Increased time for upright posture dueto pain. -ND Row Name 02/05/25 1010 Gait/Stairs (Locomotion) [place] Level (Gait) minimum assist (75% patient effort);verbal [...] 02/05/25 1015 Motor Skills Therapeutic Exercise hip;knee;ankle -[place] Row Name 02/05/25 1015 Hip (Therapeutic Exercise) Hip (Therapeutic Exercise) isometric exercises -ND Hip Isometrics (Therapeutic Exercise) bilateral;gluteal sets;other (see comments);10 repetitions abdominal setting -[place] Row Name 02/05/25 1015 Knee (Therapeutic Exercise) Knee (Therapeutic Exercise) isometric exercises -ND Knee Isometrics (Therapeutic Exercise) bilateral;quad sets;10 repetitions -[place] Row Name 02/05/25 1015 Ankle (Therapeutic Exercise) Ankle (Therapeutic Exercise) AROM (active range of motion) -ND Ankle AROM (Therapeutic Exercise) bilateral;dorsiflexion;plantarflexion;10 repetitions -[place] Row Name 02/05/25 1015 Balance Balance Assessment [...] Therapist Physical Therapy Education Title: PT OT YARD COORDINATOR Therapies (In Progress) Topic: Physical Therapy (Done) [...] PT Received On 02/05/25 -ND Timed Charges 75307 - PT Therapeutic Exercise Minutes 10 - 17040 - Gait Training Minutes 15 -ND 45642 - PT Therapeutic Activity Minutes 15 -ND Total Minutes Timed Charges Total Minutes 40 -ND Total Minutes 40 -ND User Metcalf (r) = Recorded By, (t) = Taken By, (c) = Cosigned By Initials Name Provider Type ND Amaris Reyes, PT Physical Therapist Therapy Charges for Today Code Description Service Date Service Provider Modifiers Qty 39749150019 HC GAIT TRAINING EA 15 MIN 02/04/2025 Amaris Reyes, PT GP 1 71065436474 HC PT THERAPEUTIC ACT EA 15 MIN 02/04/2025 Amaris Reyes, PT GP 1 15901823973 HC PT THER PROC EA 15 MIN 02/05/2025 Amaris Reyes, PT GP 1 52767769683 HC GAIT TRAINING EA 15 MIN 02/05/2025 Amaris Reyes, PT GP 1 47848567958 HC PT THERAPEUTIC ACT EA 15 MIN 02/05/2025 Amaris Reyes, PT GP 1 PT G-Codes Outcome Measure Options: AM-PAC 6 Clicks Basic Mobility (PT) AM-PAC 6 Clicks Score (PT): 17 AM-PAC 6 Clicks Score (OT): 20 PT Discharge Summary Anticipated Discharge Disposition (PT): fdc facility Amaris Reyes PT 02/05/2025 * Therapy [...] AND ALLOGRAFTL4-5; Surgeon: Vini Peterson MD; Location: [facility]; Service: Orthopedic Spine; Laterality: N/A; LUMBAR DISCECTOMY FUSION INSTRUMENTATION N/A 02/03/2025 Procedure: REVISION DECOMPRESSION WITH REVISED FUSION WITH PEDICLE SCREWS WITH CEMENT AUGMENTATION,AND HARDWARE REVISION L4-5; Surgeon: Vini Peterson MD; Location: [facility]; Service: Orthopedic Spine; Laterality: N/A; MASTOIDECTOMY Left x3 TUBAL ABDOMINAL LIGATION General Information Row Name 02/04/25 1335 Physical Therapy Time and Intention Document Type therapy note (daily note) -ND Mode of Treatment physical therapy -ND Row Name 02/04/25 9845 General Information Patient Profile Reviewed yes -ND [...] PT Physical Therapist Mobility Row Name 02/04/25 1339 Bed Mobility Comment, (Bed Mobility) Pt found in bathroom with family upon PT arrival. Left sitting UIC. -ND Row Name 02/04/25 1336 Sit-Stand Transfer Sit-Stand [place] (Transfers) contact guard;verbal cues;nonverbal cues (demo/gesture) -ND Assistive Device (Sit-Stand Transfers) walker, front-wheeled -ND Comment, (Sit-Stand Transfer) x1 from chair, increased time for upright posture. -ND Row Name 02/04/25 1336 Gait/Stairs (Locomotion) [place] Level (Gait) minimum assist (75% patient effort);verbal [...] Options AM-PAC 6 Clicks Basic Mobility (PT) -[place] AM-PAC 6 Clicks Daily Activity (OT)- User Metcalf (r) = Recorded By, (t) = Taken By, (c) = Cosigned By Initials Name Provider Type ND Amaris Reyes, PT Physical Therapist Winter Galvan, OT Occupational Therapist Physical Therapy Education Title: PT OT YARD COORDINATOR Therapies (In Progress) Topic: Physical Therapy (Done) [...] Initials Effective Dates Name Provider Type Discipline [place] 07/20/23 - Amaris Reyes, PT Physical Therapist [...] PT Received On 02/04/25 -ND Timed Charges 01229 - Gait Training Minutes 10 -ND 82720 - PT Therapeutic Activity Minutes 17 -ND Total Minutes Timed Charges Total Minutes 27 - Total Minutes User Metcalf (r) = Recorded By, (t) = Taken By, (c) = Cosigned By Initials Name Provider Type ND Amaris Reyes, PT Physical Therapist Therapy Charges for Today Code Description Service Date Service Provider Modifiers Qty [id number] HC PT EVAL MOD COMPLEXITY 4 02/03/2025 Amaris Reyes, PT GP 1 66873689591 HC PT THER SUPP EA 15 MIN 02/03/2025 Amaris Reyes, PT GP 3 22365016816 HC GAIT TRAINING EA 15 MIN 02/04/2025 Amaris Reyes, PT GP 1 43643985374 HC PT THERAPEUTIC ACT EA 15 MIN 02/04/2025 Amaris Reyes, PT GP 1 PT G-Codes Outcome Measure Options: AM-PAC 6 Clicks Basic Mobility (PT) AM-PAC 6 Clicks Score (PT): 17 AM-PAC 6 Clicks Score (OT): 20 PT Discharge Summary Anticipated Discharge Disposition (PT): fdc facility Amaris Reyes PT 02/04/2025 * Case Management/Social Work - David Noel RN - 02/04/2025 12:28 PM EDT Discharge Planning Assessment [facility] Patient Name: Gladys Mendes Today's Date: 02/04/2025 [...] with help/services Patient/Family Anticipated 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 There is 1 step to enter the home. At baseline, patient is independent with ADLs and uses a rolling walker, cane, rollator, and shower chair. Patient denies any home health services or home oxygen use. Patient has [employer] Medicare with prescription benefits and prefers to fill scripts at [facility]. Patient's goal is home at discharge. Son will transport. CM will continue to follow and assist with discharge planning as recommendations become available. Final Discharge Disposition Code 01 - home or self-care Demographic Summary Row Name 02/04/25 1223 General Information Admission Type inpatient Arrived From home Referral Source physician Reason for Consult discharge planning Preferred Language Burkinan General Information Comments PCP Placido Mercado Contact [...] AND ALLOGRAFTL4-5; Surgeon: Vini Peterson MD; Location: [facility]; Service: Orthopedic Spine; Laterality: N/A; LUMBAR [...] Burton OT Occupational Therapist Mobility/ADL's Row Name 02/04/2585 Bed Mobility Bed Mobility rolling right;scooting/bridging;supine-sit - Rolling Right [place] (Bed Mobility) verbal cues;minimum assist (75% patient effort) - Scooting/Bridging [place] (Bed Mobility) standby assist;verbal cues - Supine-Sit [place] (Bed Mobility) minimum assist (75% patient effort);nonverbal cues (demo/gesture);verbal cues - Assistive Device (Bed Mobility) bed rails;head of bed elevated - Comment, (Bed Mobility) Increased time and effort secondary to pain; verbal cues for log roll and sequencing; Min A for trunk - Row Name 02/04/25946 Transfers Transfers sit-stand transfer;stand-sit transfer;toilet transfer - Row Name 02/04/25946 Sit-Stand Transfer Sit-Stand [place] (Transfers) verbal cues;contact guard - Assistive Device (Sit-Stand Transfers) walker, front-wheeled - Comment, (Sit-Stand Transfer) VC for hand placement; 1x from EOB, 1x from chair to complete LBD - Row Name 02/04/25946 Stand-Sit Transfer Stand-Sit [place] (Transfers) verbal cues;contact guard - Assistive Device (Stand-Sit Transfers) walker, front-wheeled - Comment, (Stand-Sit Transfer) VC to reach back for arm rests of chair - Row Name 02/04/25946 Toilet Transfer Type (Toilet Transfer) sit-stand;stand-sit - [place] Level (Toilet Transfer) verbal cues;contact guard - [...] Row Name 02/04/25946 Upper Body Dressing Assessment/Training [place] Level (Upper Body Dressing) doff;don;bra/undergarment;pull-over garment;minimum assist(75% patient effort) - Position (Upper Body Dressing) unsupported sitting - Row Name 02/04/25946 Lower Body Dressing Assessment/Training [place] Level (Lower Body Dressing) don;pants/bottoms;verbal cues;minimum assist (75% patient effort) - Assistive Devices (Lower Body Dressing) valve liner rubber - Position (Lower Body Dressing) unsupported sitting -SA Comment, (Lower Body Dressing) Pt educated on spinal precautions for LBD; pt provided AE for LBD; pt practiced with valve liner rubber and completed LBD with reach, Min A, and verbal cues; pt needs education and practice with sock aid and long handled shoe horn - Row Name 02/04/25 0947 Grooming Assessment/Training [place] Level (Grooming) wash face, hands;contact guard assist -SA Position (Grooming) sink side -[facility] Name 02/04/25 0947 Toileting Assessment/Training [place] Level (Toileting) perform perineal hygiene;standby assist -SA Assistive Devices (Toileting) commode;raised toilet seat -SA Position (Toileting) unsupported sitting - User Metcalf (r) = Recorded By, (t) = Taken By, (c) = Cosigned By Initials Name Provider Type Winter Galvan OT Occupational Therapist Obj/Interventions Row Name 02/04/25 0955 Sensory Assessment (Somatosensory) Sensory Assessment (Somatosensory) UE sensation intact - Sensory Assessment Reports intermittent numbness/tingling BLEs -[facility] Name 02/04/25 0955 Vision Assessment/Intervention Visual Impairment/Limitations WFL -[facility] Name 02/04/25 0955 Range of Motion Comprehensive General Range of Motion bilateral upper extremity ROM WNL -[facility] Name 02/04/25 0955 Strength Comprehensive (MMT) Comment, General Manual Muscle Testing (MMT) Assessment BUE grossly L -[facility] Name 02/04/25 0955 Balance Balance Assessment sitting [...] Balance No LOB at this [facility] - User Metcalf (r) = Recorded By, (t) = Taken By, (c) = Cosigned By Initials Name Provider Type Winter Galvan OT Occupational Therapist Goals/Plan Row Name 02/04/25 111 Bed Mobility Goal 1 (OT) Activity/Assistive Device (Bed Mobility Goal 1, OT) bed mobility activities, all -SA [place] Level/Cues Needed (Bed Mobility Goal 1, OT) independent -SA Time Frame (Bed Mobility Goal 1, OT) technician terminal and repeater goal (LTG);10 days -SA Progress/Outcomes (Bed Mobility Goal 1, OT) new goal -[facility] Name 02/04/25 111 Bathing Goal 1 (OT) Activity/Device (Bathing Goal 1, OT) bathing skills, all -SA [place] Level/Cues Needed (Bathing Goal 1, OT) independent -SA Time Frame (Bathing Goal 1, OT) technician terminal and repeater goal (LTG);10 days -SA Progress/Outcomes (Bathing Goal 1, OT) new goal -[facility] Name 02/04/25 111 Dressing Goal 1 (OT) Activity/Device (Dressing Goal 1, OT) dressing skills, all -SA [place]/Cues Needed (Dressing Goal 1, OT) independent -SA Time Frame (Dressing Goal 1, OT) detention goal (LTG);10 days -SA Progress/Outcome (Dressing Goal 1, OT) new goal -[facility] Name 02/04/25 111 Problem Specific Goal 1 (OT) Problem Specific Goal 1 (OT) Pt will recall 3/3 spinal precautions without cues -SA Time Frame (Problem Specific Goal 1, OT) short term goal (STG);5 days -SA Progress/Outcome (Problem Specific Goal 1, OT) new goal -[facility] Name 02/04/25 111 Therapy Assessment/Plan (OT) Planned Therapy Interventions (OT) activity tolerance training;adaptive equipment training;BADL retraining;functional balance retraining;occupation/activity based interventions;patient/caregiver educa tion/training;ROM/therapeutic exercise;strengthening exercise;transfer/mobility retraining - User Metcalf (r) = Recorded By, (t) = Taken By, (c) = Cosigned By Initials Name Provider Type Winter Galvan OT Occupational Therapist Clinical Impression [facility] Name 02/04/25 0957 Pain Assessment Pretreatment Pain [...] Review/Discharge Plan (OT) Anticipated Discharge Disposition (OT) fdc facility - Row Name 02/04/25 0957 Vital [...] Therapist Occupational Therapy Education Title: PT OT YARD COORDINATOR Therapies (In Progress) Topic: Occupational Therapy (In [...] Re-Cert Due Date 06/13/25 -SA Timed Charges 79457 - OT Self Care/Mgmt Minutes 15 -SA [...] Description Service Date Service Provider Modifiers Qty [id number] OT SELF CARE/MGMT/TRAIN EA 15 MIN 02/04/2025 Winter Burton OT GO 1 46689058965 HC-OT EVAL MOD COMPLEXITY 5 02/04/2025 Winter [...] AND ALLOGRAFTL4-5; Surgeon: Vini Peterson MD; Location: [facility]; Service: Orthopedic Spine; Laterality: N/A; MASTOIDECTOMY Left x3 TUBAL ABDOMINAL LIGATION General Information Row Name 02/03/25 1636 Physical Therapy Time and Intention Document Type [...] By Initials Name Provider Type ND Amaris Reeys, PT Physical Therapist Mobility Row Name 02/03/25 1637 Bed Mobility Bed Mobility supine-sit;sit-supine -ND Supine-Sit [place] (Bed Mobility) minimum assist (75% patient effort);nonverbal cues (demo/gesture);verbal cues -ND Sit-Supine [place] (Bed Mobility) minimum assist (75% patient effort);nonverbal cues (demo/gesture);verbal cues -ND Assistive Device (Bed Mobility) bed rails;head of bed elevated -ND Comment, (Bed Mobility) Increased time for task secondary to pain. Min-A with cues for log roll technique. -ND Row Name 02/03/25 163 Sit-Stand Transfer Sit-Stand [place] (Transfers) minimum assist (75% patient effort);verbal cues;nonverbal cues (demo/gesture) -ND Assistive Device (Sit-Stand Transfers) walker, front-wheeled -ND Comment, (Sit-Stand Transfer) Cues for hand placement. Increased time for upright posture. -ND Row Name 02/03/25 1637 02/03/25 1625 Gait/Stairs (Locomotion) [place] Level (Gait) minimum assist (75% patient effort);1 [...] PT) sit to supine/supine to sit -ND [place] Level/Cues Needed (Bed Mobility Goal 1, PT) modified independence -ND Time Frame (Bed Mobility Goal 1, PT) short term goal (STG);3 days -ND Row Name 02/03/251642 Transfer Goal 1 (PT) Activity/Assistive Device (Transfer Goal 1, PT) xmx-tj-qisst/kntzf-jc-bld;dzu-gq-iauzi/aqrqn-ij-eyu-ND [place] Level/Cues Needed (Transfer Goal 1, PT) modified independence -ND Time Frame (Transfer Goal 1, PT) detention goal (LTG);5 days -ND Row Name 02/03/251642 Gait Training Goal 1 (PT) Activity/Assistive Device (Gait Training Goal 1, PT) gait (walking locomotion);increase endurance/gait distance;decrease fall risk -ND [place] Level (Gait Training Goal 1, PT) modified independence -ND Distance (Gait Training Goal 1, PT) 250 -ND Time Frame (Gait Training Goal 1, PT) technician terminal and repeater goal (LTG);5 days -ND Row Name 02/03/251642 Balance Goal 1 (PT) Activity/Assistive Device (Balance Goal) with functional mobility activities -ND [place] Level/Cues Needed (Balance Goal 1, PT) modified independence -ND Time Frame (Balance Goal 1, PT) long-term goal (LTG);5-7 days -ND Row Name 02/03/251642 Stairs Goal 1 (PT) Activity/Assistive Device (Stairs Goal 1, PT) ascending stairs;descending stairs -ND [place] Level/Cues Needed (Stairs Goal 1, PT) modified independence -ND Number of Stairs (Stairs Goal 1, PT) 1 -ND Time Frame (Stairs Goal 1, PT) technician terminal and repeater goal (LTG);5 days -ND Row Name 02/03/251642 [...] Therapist Physical Therapy Education Title: PT OT YARD COORDINATOR Therapies (In Progress) Topic: Physical Therapy (In [...] Initials Effective Dates Name Provider Type Discipline [place] 07/20/23 - Amaris Reyes PT Physical Therapist [...] Description Service Date Service Provider Modifiers Qty [id number] HC PT EVAL MOD COMPLEXITY 4 02/03/2025 Amaris Reyes, PT GP 1 21072743246 HC PT THER SUPP EA 15 MIN 02/03/2025 Amaris Reyes, PT GP 3 PT G-Codes Outcome Measure Options: AM-PAC 6 Clicks Basic Mobility (PT) AM-PAC 6 Clicks Score (PT): 17 PT Discharge Summary Anticipated Discharge Disposition (PT): fdc facility Amaris Reyes PT 02/03/2025 documented in [...] DURING SURGERY Routine 02/03/2025 12:08 PM EDT MS ARTHRODESIS COMBINED TQ [id number] LUMBAR 02/03/2025 7:22 AM EDT Special Needs DEPUY WITH CEMENT AUGMENTATION, CAN MACHINE OPERATOR, VIPIN TABLE, CELL SAVER (CONFIRMED WITH MATILDE GEORGES 01/15), C-ARM, O-ARM STEALTH * TYPE AND SCREEN STAT 02/03/2025 6:46 AM EDT SCANNED EKG 02/03/2025 SCANNED - IMAGING 02/03/2025 SCANNED - LABS 02/03/2025 documented in this encounter Results * Potassium (02/05/2025 6:59 AM EDT) Potassium 3.9 3.5 - 5.2 mmol/L 02/05/2025 8:25 AM EDT [facility] Blood Venipuncture / Unknown 02/05/2025 6:59 AM EDT 02/05/2025 7:51 AM EDT Pavithra Oakes MD LAB BLOOD ORDERABLES Final Result [facility]
[address] [place] [address], * (ABNORMAL) Basic Metabolic Panel (02/04/2025 6:15 AM EDT) Glucose 101(H) 65 - 99 mg/dL 02/04/2025 7:01 AM EDT [facility] BUN 11.2 8.0 - 23.0 mg/dL 02/04/2025 7:01 AM EDT [facility] Creatinine 0.87 0.57 - 1.00 mg/dL 02/04/2025 7:01 AM EDT [facility] Sodium 138 136 - 145 mmol/L 02/04/2025 7:01 AM EDT [facility] Potassium 5.4(H) 3.5 - 5.2 mmol/L 02/04/2025 7:01 AM EDT [facility] Chloride 105 98 - 107 mmol/L 02/04/2025 7:01 AM EDT [facility] CO2 27.0 22.0 - 29.0 mmol/L 02/04/2025 7:01 AM EDT [facility] Calcium 9.5 8.6 - 10.5 mg/dL 02/04/2025 7:01 AM EDT [facility] BUN/Creatinine Ratio 12.9 7.0 - 25.0 02/04/2025 7:01 AM EDT [facility] Anion Gap 6.0 5.0 - 15.0 mmol/L 02/04/2025 7:01 AM EDT [facility] eGFR 68.7 >60.0 mL/min/1.7 3 02/04/2025 7:01 AM EDT [facility] Blood Venipuncture / Unknown 02/04/2025 6:15 AM EDT 02/04/2025 6:34 AM EDT [facility] - 02/04/2025 7:01 AM EDT GFR [...] Oakes MD LAB BLOOD ORDERABLES Final Result [facility]
[address] [place] [address], * (ABNORMAL) Hemoglobin & Hematocrit, Blood (02/04/2025 6:15 AM EDT) Hemoglobin 9.7(L) 12.0 - 15.9 g/dL 02/04/2025 6:37 AM EDT [facility] Hematocrit 31.1(L) 34.0 - 46.6 % 02/04/2025 6:37 AM EDT [facility] Blood Venipuncture / Unknown 02/04/2025 6:15 AM EDT 02/04/2025 6:33 AM EDT us Vini Peterson MD LAB BLOOD ORDERABLES Final Res ult [facility]
[address] [place] [address], * FL C Arm During Surgery (02/03/2025 12:08 PM EDT) Narrative SYSTEMGENERATED, DOCUMENTATION - 02/03/2025 12:08 PM EDT This procedure was auto-finalized with no dictation required. us Vini Peterson MD IMG FLUOROSCOPY ORDERABLES Fin al Result * Type & Screen (02/03/2025 6:46 AM EDT) ABO Type A 02/03/2025 7:43 AM EDT [facility] RH type Positive 02/03/2025 7:43 AM EDT [facility] Antibody Screen Negative 02/03/2025 7:43 AM EDT [facility] T&S Expiration Date 02/06/2025 11:59:59 PM 02/03/2025 7:43 AM EDT [facility] Blood Line / Unknown 02/03/2025 6: 46 AM EDT 02/03/2025 6:52 AM EDT us Vini Peterson MD BLOOD BANK TEST ORDERABLES Sanchez antonina Result - Final [facility]
[address] [place] [address], * LABS SCANNED (02/03/2025) [facility] LAB BLOOD ORDERABLES Final Re sult * IMAGING SCANNED (02/03/2025) Anatomical Region Laterality Modality Radiographic Carmella ging [facility] IMG DIAGNOSTIC IMAGING ORDERA BLES Final Result * ECG Scan (02/03/2025) [facility] ECG ORDERABLES Final Result documented in this [...] documented as of this encounter Care Teams Geological E Logger Relationship Specialty Start Date End Date Placido Mercado MD [address] [place] [address] [place] [id number] PCP - General Family Medicine 01/29/25 documented as of this encounter
--- OUTSIDE RECORDS SUMMARY | 2025-02-03 07:15 | XMS_ITS | Encounter Summary ---
Author Organization [facility] Address [address] [place] [address] Care Team Providers Care Customer Order Clerk Name Role Phone Placido Mercado MD Primary Care Provider [phone] Reason for Visit * Auth/Cert Specialty Diagnoses / Procedures Referred By Contac t Referred To Contact Procedures UT ARTHRODESIS COMBINED TQ [id number] LUMBAR L 4-5 REVISION DECOMPRESSION WITH REVISED FUSION WITH PEDICLE SCREWS, CEMENT AUGMENTATION AND POSSIBLE EXTENSION OF FUSION Referral ID Status Reason Start Date Expiration Date Visits Re quested Visits Authorized [id number] 1 1 Encounter Details Date Type Department Care Team (Late st Contact Info) Description 02/03/2025 7:15 AM EDT - 02/03/2025 12:04 PM EDT Surgery [facility] OR [address] [place] [id number] Vini Peterson MD [address] [facility] [address] [place] [address] REVISION DECOMPRESSION WITH REVISED FUSION WITH PEDICLE SCREWS WITH CEMENT AUGMENTATION, AND HARDWARE REVISION L4-5 [12052 (CPT )] Social History Tobacco Use Types Packs/Day Years Used Date Smoking Tobacco: Former Smokeless Tobacco: Never Alcohol Use Standard Drinks/Week Comments Never 0 (1 standard drink = 0.6 oz pur e alcohol) [facility] Utilities Answer Date Recorded In the past 12 months has [employer] electric, gas, oil, or water company threatened [...] care, and heating? Not very hard 02/04/2025 [facility] - Occupational Stress [...] GED or equivalent No 02/04/2025 Preferred Language Chadian 02/04/2025 PHQ-2 Answer Date Recorded Patient Health [...] Month) No 025 6:30 AM EDT Jes Nroiega, RN 2. Non-Specific Active Suici delfino Thoughts (Past 1 Month) No 02/03/2025 6:30 AM EDT Aleah Noriega RN * Calculated C-SSRS Risk Score (Lifetime/Recent) Answer Date of Assessment Author No Risk Indicated 02/03/2025 6:30 AM EDT Jes Noriega RN * Ramsey Suicide Severity Rating Scale (Screener/Recent Self-Report) Question [...] Levels Completed:1 Level Surgeon: Vini Peterson MD Shell Sorter: Harman Kirk PA-C to assist with retraction, [...] best functional outcome. Anticipated Discharge Disposition (PT): residential facility Discharge Assessment: Visit Vitals BP 136/84 [...] Female) Date of 1945 Social Security Number [id number] [place] [address] [employer] [facility] Marital Status Single Admission Date 02/03/2025 Admission Type Elective Admitting Provider Vini Peterson MD Attending Provider Vini Peterson MD Department, Room/Bed [facility] 3G, S362/1 Discharge Date Discharge Disposition Discharge [...] HU[employer] MEDICARE REPLACEMENT [employer] MEDICARE ADVANTAGE PPO [id number] Payor Plan Address Payor Plan Phone Number Payor Plan Fax Number Effective Dates [address] [address] 09/04/2024 - None Entered FORMERLY [facility] [id number] Subscriber Name Subscriber Date Member ID GLADYS MENDES 1945 [id number] 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 02/02/2025 Evening Coenzyme X25-Kpueiiy E (QUNOL ULTRA COQ10 PO) Take 100 [...] GERD (gastroesophageal reflux disease) History of transfusion [facility], no reaction Hyperlipidemia Hypertension Past Surgical History: Procedure Laterality Date BREAST BIOPSY Right multiple COLONOSCOPY HEMORRHOIDECTOMY LUMBAR DISCECTOMY FUSION INSTRUMENTATION N/A 05/16/2022 Procedure: LUMBAR DECOMPRESSION WITH FUSION INSTRUMENTATION WITH PEDICLE SCREWS, CAGE AND ALLOGRAFTL4-5; Surgeon: Vini Peterson MD; [facility]; Service: Orthopedic Spine; Laterality: N/A; MASTOIDECTOMY [...] of this encounter note is an electronic medical imaging director/translation of spoken language to printed text. The electronic translation of spoken language may permit erroneous, or at times, nonsensicalwords or phrases to be inadvertently transcribed; Although I have reviewed the note for such errors, some may still exist. Pavithra Oakes MD 02/03/25 17:34 EDT 2734 Vini Peterson MD at 02/03/25 0650 Pre-Op H&P Gladys Mendes [id number] 1945 Chief complaint: Back pain Subjective: Patient [...] by mouth Every Night. 02/02/2025 Evening Coenzyme A73-Pxoulcr E (QUNOL ULTRA COQ10 PO) Take 100 [...] GERD (gastroesophageal reflux disease) History of transfusion [facility], no reaction Hyperlipidemia Hypertension PSH: Past Surgical History: Procedure Laterality Date BREAST BIOPSY Right multiple COLONOSCOPY HEMORRHOIDECTOMY LUMBAR DISCECTOMY FUSION INSTRUMENTATION N/A 05/16/2022 Procedure: LUMBAR DECOMPRESSION WITH FUSION INSTRUMENTATION WITH PEDICLE SCREWS, CAGE AND ALLOGRAFTL4-5; Surgeon: Vini Peterson MD; [facility]; Service: Orthopedic Spine; Laterality: N/A; MASTOIDECTOMY [...] 02/05/25 1102 IM progress note Gladys Mendes [id number] 1945 LOS: 2 days Attending: iVni Peterson MD Primary Care Provider: Placido Mercado [...] GERD (gastroesophageal reflux disease) History of transfusion [facility], no reaction Hyperlipidemia Hypertension Past Surgical History: Procedure Laterality Date BREAST BIOPSY Right multiple COLONOSCOPY HEMORRHOIDECTOMY LUMBAR DISCECTOMY FUSION INSTRUMENTATION N/A 05/16/2022 Procedure: LUMBAR DECOMPRESSION WITH FUSION INSTRUMENTATION WITH PEDICLE SCREWS, CAGE AND ALLOGRAFTL4-5; Surgeon: Vini Peterson MD; [facility]; Service: Orthopedic Spine; Laterality: N/A; LUMBAR DISCECTOMY FUSION INSTRUMENTATION N/A 02/03/2025 Procedure: REVISION DECOMPRESSION WITH REVISED FUSION WITH PEDICLE SCREWS WITH CEMENT AUGMENTATION,AND HARDWARE REVISION L4-5; Surgeon: Vini Peterson MD; [facility]; Service: Orthopedic Spine; Laterality: N/A; MASTOIDECTOMY [...] Row Name 02/05/25 1010 Sit-Stand Transfer Sit-Stand [place] (Transfers) contact guard;nonverbal cues (demo/gesture);verbal cues -ND Assistive Device (Sit-Stand Transfers) walker, front-wheeled -ND Comment, (Sit-Stand Transfer) x1 from chair, x1 from toilet. Increased time for upright posture dueto pain. -ND Row Name 02/05/25 1010 Gait/Stairs (Locomotion) [place] Level (Gait) minimum assist (75% patient effort);verbal [...] Therapist Physical Therapy Education Title: PT OT POTATO GRADER Therapies (In Progress) Topic: Physical Therapy (Done) [...] PT Received On 02/05/25 -ND Timed Charges 07511 - PT Therapeutic Exercise Minutes 10 -ND 92100 - Gait Training Minutes 15 -ND 67530 - PT Therapeutic Activity Minutes 15 -ND Total Minutes Timed Charges Total Minutes 40 -ND Total Minutes 40 -ND User Metcalf (r) = Recorded By, (t) = Taken By, (c) = Cosigned By Initials Name Provider Type ND Amaris Reyes, PT Physical Therapist Therapy Charges for Today Code Description Service Date Service Provider Modifiers Qty 86327749085 HC GAIT TRAINING EA 15 MIN 02/04/2025 Amaris Reyes, PT GP 1 81196222927 HC PT THERAPEUTIC ACT EA 15 MIN 02/04/2025 Amaris Reyes, PT GP 1 06391574909 HC PT THER PROC EA 15 MIN 02/05/2025 Amaris Reyes, PT GP 1 24645881737 HC GAIT TRAINING EA 15 MIN 02/05/2025 Amaris Reyes, PT GP 1 54913483214 HC PT THERAPEUTIC ACT EA 15 MIN 02/05/2025 Amaris Reyes, PT GP 1 PT G-Codes Outcome Measure Options: AM-PAC 6 Clicks Basic Mobility (PT) AM-PAC 6 Clicks Score (PT): 17 AM-PAC 6 Clicks Score (OT): 20 PT Discharge Summary Anticipated Discharge Disposition (PT): residential facility Amaris Reyes PT 02/05/2025 1025 Occupational [...] GERD (gastroesophageal reflux disease) History of transfusion [facility], no reaction Hyperlipidemia Hypertension Past Surgical History: Procedure Laterality Date BREAST BIOPSY Right multiple COLONOSCOPY HEMORRHOIDECTOMY LUMBAR DISCECTOMY FUSION INSTRUMENTATION N/A 05/16/2022 Procedure: LUMBAR DECOMPRESSION WITH FUSION INSTRUMENTATION WITH PEDICLE SCREWS, CAGE AND ALLOGRAFTL4-5; Surgeon: Vini Peterson MD; Location: [facility]; Service: Orthopedic Spine; Laterality: N/A; LUMBAR DISCECTOMY FUSION INSTRUMENTATION N/A 02/03/2025 Procedure: REVISION DECOMPRESSION WITH REVISED FUSION WITH PEDICLE SCREWS WITH CEMENT AUGMENTATION,AND HARDWARE REVISION L4-5; Surgeon: Vini Peterson MD; Location: [facility]; Service: Orthopedic Spine; Laterality: N/A; [...] Bed Mobility rolling right;scooting/bridging;supine-sit -SA Rolling Right [place] (Bed Mobility) verbal cues;minimum assist (75% patient effort) - Scooting/Bridging [place] (Bed Mobility) standby assist;verbal cues -SA Supine-Sit [place] (Bed Mobility) minimum assist (75% patient effort);nonverbal cues (demo/gesture);verbal cues - Assistive Device (Bed Mobility) bed rails;head of bed elevated - Comment, (Bed Mobility) Increased time and effort secondary to pain; verbal cues for log roll and sequencing; Min A for trunk - Row Name 02/04/25946 Transfers Transfers sit-stand transfer;stand-sit transfer;toilet transfer - Row Name 02/04/25946 Sit-Stand Transfer Sit-Stand [place] (Transfers) verbal cues;contact guard - Assistive Device (Sit-Stand Transfers) walker, front-wheeled - Comment, (Sit-Stand Transfer) VC for hand placement; 1x from EOB, 1x from chair to complete LBD - Row Name 02/04/25946 Stand-Sit Transfer Stand-Sit [place] (Transfers) verbal cues;contact guard - Assistive Device (Stand-Sit Transfers) walker, front-wheeled - Comment, (Stand-Sit Transfer) VC to reach back for arm rests of chair - Row Name 02/04/25946 Toilet Transfer Type (Toilet Transfer) sit-stand;stand-sit -SA [place] Level (Toilet Transfer) verbal cues;contact guard - [...] Name 02/04/25 0947 Upper Body Dressing Assessment/Training [place] Level (Upper Body Dressing) doff;don;bra/undergarment;pull-over garment;minimum assist(75% patient effort) -SA Position (Upper Body Dressing) unsupported sitting -SA Row Name 02/04/25 0947 Lower Body Dressing Assessment/Training [place] Level (Lower Body Dressing) don;pants/bottoms;verbal cues;minimum assist (75% patient effort) -SA Assistive Devices (Lower Body Dressing) sea foam kiss maker -SA Position (Lower Body Dressing) unsupported sitting -SA Comment, (Lower Body Dressing) Pt educated on spinal precautions for LBD; pt provided AE for LBD; pt practiced with sea foam kiss maker and completed LBD with reach, Min A, and verbal cues; pt needs education and practice with sock aid and long handled shoe horn -SA Row Name 02/04/25 09 Grooming Assessment/Training [place] Level (Grooming) wash face, hands;contact guard assist -SA Position (Grooming) sink side -SA Row Name 02/04/25 0947 Toileting Assessment/Training [place] Level (Toileting) perform perineal hygiene;standby assist -SA [...] -SA Comment, Balance No LOB at this [facility] -SA User Metcalf (r) = Recorded By, (t) = Taken By, (c) = Cosigned By Initials Name Provider Type SA Winter Burton, OT Occupational Therapist Goals/Plan Row Name 02/04/25 111 Bed Mobility Goal 1 (OT) Activity/Assistive Device (Bed Mobility Goal 1, OT) bed mobility activities, all -SA [place] Level/Cues Needed (Bed Mobility Goal 1, OT) independent -SA Time Frame (Bed Mobility Goal 1, OT) buttermaker continuous churn goal (LTG);10 days -SA Progress/Outcomes (Bed Mobility Goal 1, OT) new goal -SA Row Name 02/04/25 111 Bathing Goal 1 (OT) Activity/Device (Bathing Goal 1, OT) bathing skills, all -SA [place] Level/Cues Needed (Bathing Goal 1, OT) independent -SA Time Frame (Bathing Goal 1, OT) buttermaker continuous churn goal (LTG);10 days -SA Progress/Outcomes (Bathing Goal 1, OT) new goal -SA Row Name 02/04/25 111 Dressing Goal 1 (OT) Activity/Device (Dressing Goal 1, OT) dressing skills, all -SA [place]/Cues Needed (Dressing Goal 1, OT) independent -SA Time Frame (Dressing Goal 1, OT) buttermaker continuous churn goal (LTG);10 days -SA Progress/Outcome (Dressing Goal [...] Winter Burton OT Occupational Therapist Clinical Impression [facility] Name 02/04/25956 Pain Assessment Pretreatment Pain Rating [...] Review/Discharge Plan (OT) Anticipated Discharge Disposition (OT) residential facility -[facility] Name 02/04/25956 [...] Therapist Occupational Therapy Education Title: PT OT POTATO GRADER Therapies (In Progress) Topic: Occupational Therapy (In Progress) Point: ADL training (In Progress) Learning Progress Summary Patient Acceptance, E,D, NR by at 02/04/2025 1116 Point: Precautions (In Progress) Learning Progress Summary Patient Acceptance, E,D, NR by at 02/04/2025 1116 Point: Body mechanics (In Progress) Learning Progress Summary Patient Acceptance, E,D, NR by at 02/04/2025 1116 User Metcalf Initials Effective Dates Name Provider Type [facility] 12/18/24 - Winter Burton OT Occupational [...] Re-Cert Due Date 02/14/25 -SA Timed Charges 85727 - OT Self Care/Mgmt Minutes 15 -SA [...] Description Service Date Service Provider Modifiers Qty 27400170814 OT SELF CARE/MGMT/TRAIN EA 15 MIN 02/04/2025 Winter Burton OT GO 1 [id number] -OT EVAL MOD COMPLEXITY 5 02/04/2025 Winter Burton OT 1 Winter Burton OT 02/04/2025 1119 documented in this encounter Discharge Instructions * Discharge Instr - Activity* Loren Floyd RN - 02/06/2025 7:54 AM EDT - x1 assist walker and gait belt - As directed by your physician and physical therapist * Discharge Instr - Diet* Loren Folyd RN - 02/06/2025 7:54 AM EDT - Regular diet * Attachments The following attachments cannot be sent through Care Everywhere. * Laminectomy Care After (Chadian) * Incision Care Adult Fmkl-sp-Wumi (Chadian) * How to Use a Walker (Chadian) * Fall Prevention in the Home Adult Rcrg-jl-Oxod (Chadian) documented in this encounter Medications at Time [...] if polyethylene glycol is ineffective). 02/07/2025 Coenzyme I06-Drubiuw E (QUNOL ULTRA COQ10 PO) Take 100 [...] PM EDT IM progress note Gladys Mendes [id number] 1945 LOS: 3 days Attending: Vini Peterson [...] Monitor post-op labs 7. Discharge planning for [place] tomorrow - Hypertension: Resume home medications as [...] hours) Procedure Component Value Units Date/Time Potassium [[id number]] (Normal) Collected: 02/05/2559 Specimen: Blood Updated: 02/05/25 [...] AM EDT IM progress note Gladys Mendes [id number] 1945 LOS: 2 days Attending: Vini Peterson [...] hours) Procedure Component Value Units Date/Time Potassium [[id number]] Collected: 02/05/25658 Specimen: Blood Updated: 02/05/25 2973 Physical Exam: Continued partial left foot drop [...] not included. IM progress note Gladys Mendes [id number] 1945 LOS: 1 day Attending: Vini Peterson [...] SNF following d/c. Anticipated Discharge Disposition (PT): residential facility Physical Exam: General Appearance: Alert, cooperative, [...] Component Value Units Date/Time Basic Metabolic Panel [[id number]] (Abnormal) Collected: 02/04/25614 Specimen: Blood Updated: 02/04/25700 [...] as a factor Hemoglobin & Hematocrit, Blood [[id number]] (Abnormal) Collected: 02/04/25614 Specimen: Blood Updated: 02/04/25636 Hemoglobin 9.7 g/dL Hematocrit 31.1 % Physical Exam: Continued partial left foot drop which is chronic, otherwise Neurovascular intact. Calves soft, non-tender. Assessment & Plan Doing pretty well on POD #1 all things considered. Needs to continue to work with PT/OT and nursing to mobilize. Will leave drain in today. stadium manager to evaluate for home needs vs. [...] by mouth Every Night. 02/02/2025 Evening Coenzyme U54-Cqjcfko E (QUNOL ULTRA COQ10 PO) Take 100 [...] GERD (gastroesophageal reflux disease) History of transfusion [facility], no reaction Hyperlipidemia Hypertension Past Surgical History: Procedure Laterality Date BREAST BIOPSY Right multiple COLONOSCOPY HEMORRHOIDECTOMY LUMBAR DISCECTOMY FUSION INSTRUMENTATION N/A 05/16/2022 Procedure: LUMBAR DECOMPRESSION WITH FUSION INSTRUMENTATION WITH PEDICLE SCREWS, CAGE AND ALLOGRAFTL4-5; Surgeon: Vini Peterson MD; [facility]; Service: Orthopedic Spine; Laterality: N/A; MASTOIDECTOMY [...] of this encounter note is an electronic medical imaging director/translation of spoken language to printed text. The electronic translation of spoken language may permit erroneous, or at times, nonsensicalwords or phrases to be inadvertently transcribed; Although I have reviewed the note for such errors, some may still exist. Pavithra Oakes MD 02/03/25 17:34 EDT * Vini Peterson MD - 02/03/2025 6:50 AM EDT Pre-Op H&P Gladys Mendes [id number] 1945 Chief complaint: Back pain Subjective: Patient [...] by mouth Every Night. 02/02/2025 Evening Coenzyme S71-Xtdfael E (QUNOL ULTRA COQ10 PO) Take 100 [...] GERD (gastroesophageal reflux disease) History of transfusion [facility], no reaction Hyperlipidemia Hypertension PSH: Past Surgical History: Procedure Laterality Date BREAST BIOPSY Right multiple COLONOSCOPY HEMORRHOIDECTOMY LUMBAR DISCECTOMY FUSION INSTRUMENTATION N/A 05/16/2022 Procedure: LUMBAR DECOMPRESSION WITH FUSION INSTRUMENTATION WITH PEDICLE SCREWS, CAGE AND ALLOGRAFTL4-5; Surgeon: Vini Peterson MD; [facility]; Service: Orthopedic Spine; Laterality: N/A; MASTOIDECTOMY [...] FOR BEST OUTCOME. Anticipated Discharge Disposition (PT): residential facility * Loren Floyd RN - 02/06/2025 [...] dressing maintained Taken 02/06/2025 1416 by Loren Flyod RN Body Position: position maintained Skin Protection: incontinence pads utilized silicone foam dressing in place transparent dressing maintained Taken 02/06/2025 1210 by Loren Floyd RN Body Position: position maintained Skin Protection: incontinence pads utilized silicone foam dressing in place transparent dressing maintained Taken 02/06/2025 1010 by Lorne Floyd RN Body Position: position maintained Skin [...] Review/Management: medications reviewed Taken 02/06/2025 1010 by oLren Floyd RN Medication Review/Management: medications reviewed Taken [...] shift encouraged Head of Bed (HOB) Positioning: [facility] elevated Pressure Reduction Devices: pressure-redistributing mattress utilized positioning supports utilized Skin Protection: incontinence pads utilized silicone foam dressing in place transparent dressing maintained Taken 02/06/2025 1416 by Loren Floyd RN Pressure Reduction Techniques: frequent weight shift encouraged Head of Bed (HOB) Positioning: [facility] elevated Pressure Reduction Devices: pressure-redistributing mattress utilized positioning supports utilized Skin Protection: incontinence pads utilized silicone foam dressing in place transparent dressing maintained Taken 02/06/2025 1210 by Loren Floyd RN Pressure Reduction Techniques: frequent weight shift encouraged Head of Bed (HOB) Positioning: [facility] elevated Pressure Reduction Devices: pressure-redistributing mattress utilized positioning supports utilized Skin Protection: incontinence pads utilized silicone foam dressing in place transparent dressing maintained Taken 02/06/2025 1010 by Loren Floyd RN Pressure Reduction Techniques: frequent weight shift encouraged Head of Bed (HOB) Positioning: [facility] elevated Pressure Reduction Devices: pressure-redistributing mattress utilized positioning supports utilized Skin Protection: incontinence pads utilized silicone foam dressing in place transparent dressing maintained Taken 02/06/2025 0828 by Loren Floyd RN Pressure Reduction Techniques: frequent weight shift encouraged Head of Bed (HOB) Positioning: [facility] elevated Pressure Reduction Devices: pressure-redistributing mattress [...] return to PLOF. Anticipated Discharge Disposition (OT): residential facility * Amaris Reyes, PT - 02/06/2025 [...] best functional outcome. Anticipated Discharge Disposition (PT): residential facility * Essence Hernandez RN - 02/06/2025 [...] toileting scheduled Taken 02/05/2025 1014 by Loren Folyd RN Safety Promotion/Fall Prevention: activity supervised assistive [...] best functional outcome. Anticipated Discharge Disposition (PT): residential facility * Corie Mast RN - 02/05/2025 [...] SNF following d/c. Anticipated Discharge Disposition (PT): residential facility * Winter Burton OT - 02/04/2025 [...] SNF at discharge. Anticipated Discharge Disposition (OT): residential facility * Corie Mast RN - 02/04/2025 [...] overall functional mobility. Anticipated Discharge Disposition (PT): residential facility documented in this encounter OR Notes [...] Levels Completed:1 Level Surgeon: Vini Peterson MD Shell Sorter: Harman Kirk PA-C to assist with retraction, [...] Consult Dr. Nichols for medical management. Consult caser in for home needs vs Rehab Placement. Vini [...] GERD (gastroesophageal reflux disease) History of transfusion [facility], no reaction Hyperlipidemia Hypertension Past Surgical History: Procedure Laterality Date BREAST BIOPSY Right multiple COLONOSCOPY HEMORRHOIDECTOMY LUMBAR DISCECTOMY FUSION INSTRUMENTATION N/A 05/16/2022 Procedure: LUMBAR DECOMPRESSION WITH FUSION INSTRUMENTATION WITH PEDICLE SCREWS, CAGE AND ALLOGRAFTL4-5; Surgeon: Vini Peterson MD; Location: [facility]; Service: Orthopedic Spine; Laterality: N/A; LUMBAR DISCECTOMY FUSION INSTRUMENTATION N/A 02/03/2025 Procedure: REVISION DECOMPRESSION WITH REVISED FUSION WITH PEDICLE SCREWS WITH CEMENT AUGMENTATION,AND HARDWARE REVISION L4-5; Surgeon: Vini Peterson MD; Location: [facility]; Service: Orthopedic Spine; Laterality: N/A; [...] 1153 Bed Mobility Comment, (Bed Mobility) PT [facility]. REVIEWED LOG ROLLING TECHNIQUE FOR SUPINE<>SIT. -CD Row Name 02/07/25 1153 Transfers Comment, (Transfers) CUES FOR HAND PLACEMENT. STS FROM RECLINER AND COMMODE IN BATHROOM. -CD Row Name 02/07/25 1153 Sit-Stand Transfer Sit-Stand [place] (Transfers) contact guard;verbal cues -CD Assistive Device (Sit-Stand Transfers) walker, front-wheeled -CD Comment, (Sit-Stand Transfer) CUES FOR UPRIGHT POSTURE. INCREASED PAIN L LE. -CD Row Name 02/07/25 1153 Gait/Stairs (Locomotion) [place] Level (Gait) verbal cues;nonverbal cues (demo/gesture);contact guard [...] Nurse Physical Therapy Education Title: PT OT POTATO GRADER Therapies (Done) Topic: Physical Therapy (Done) Point: [...] Minutes- PT 48 minute(s) -CD Timed Charges 14024 - PT Therapeutic Exercise Minutes 10 -CD 98342 - Gait Training Minutes 20 -CD 47877 - PT Therapeutic Activity Minutes 18 -CD Total Minutes Timed Charges Total Minutes 48 -CD Total Minutes 48 -CD User Metcalf (r) = Recorded By, (t) = Taken By, (c) = Cosigned By Initials Name Provider Type CD Angela Avila, PT Physical Therapist Therapy Charges for Today Code Description Service Date Service Provider Modifiers Qty 36670842247 HC PT THER PROC EA 15 MIN 02/07/2025 Angela Avila, PT GP 1 73450757476 HC GAIT TRAINING EA 15 MIN 02/07/2025 Angela Avila, PT GP 1 85751626058 HC PT THERAPEUTIC ACT EA 15 MIN 02/07/2025 Angela Avila, PT GP 1 PT G-Codes Outcome Measure Options: AM-PAC 6 Clicks Basic Mobility (PT) AM-PAC 6 Clicks Score (PT): 17 AM-PAC 6 Clicks Score (OT): 20 PT Discharge Summary Anticipated Discharge Disposition (PT): residential facility Angela Avila PT 02/07/2025 * Therapy [...] GERD (gastroesophageal reflux disease) History of transfusion [facility], no reaction Hyperlipidemia Hypertension Past Surgical History: Procedure Laterality Date BREAST BIOPSY Right multiple COLONOSCOPY HEMORRHOIDECTOMY LUMBAR DISCECTOMY FUSION INSTRUMENTATION N/A 05/16/2022 Procedure: LUMBAR DECOMPRESSION WITH FUSION INSTRUMENTATION WITH PEDICLE SCREWS, CAGE AND ALLOGRAFTL4-5; Surgeon: Vini Peterson MD; Location: [facility]; Service: Orthopedic Spine; Laterality: N/A; LUMBAR DISCECTOMY FUSION INSTRUMENTATION N/A 02/03/2025 Procedure: REVISION DECOMPRESSION WITH REVISED FUSION WITH PEDICLE SCREWS WITH CEMENT AUGMENTATION,AND HARDWARE REVISION L4-5; Surgeon: Vini Peterson MD; Location: [facility]; Service: Orthopedic Spine; Laterality: N/A; [...] Row Name 02/06/25 152 Sit-Stand Transfer Sit-Stand [place] (Transfers) contact guard;verbal cues;nonverbal cues (demo/gesture) -MR Assistive Device (Sit-Stand Transfers) walker, front-wheeled -MR Row Name 02/06/251521 Functional Mobility Functional Mobility- Ind. Level contact guard assist -MR Functional Mobility- Device walker, front-wheeled -MR Functional Mobility-Distance (Feet) -- HH distances -MR Row Name 02/06/251521 Activities of Daily Living BADL Assessment/Intervention lower body dressing;bathing;toileting;upper body dressing -MR Row Name 02/06/251521 Upper Body Dressing Assessment/Training [place] Level (Upper Body Dressing) don;doff;minimum assist (75% patient effort);pajama/robe -MR Position (Upper Body Dressing) unsupported standing -MR Row Name 02/06/251521 Lower Body Dressing Assessment/Training [place] Level (Lower Body Dressing) don;doff;shoes/slippers;socks;dependent (less than 25% patient effort) -MR Assistive Devices (Lower Body Dressing) long-handled shoe horn;sea foam kiss maker;sock-aid -MR Position (Lower Body Dressing) supported sitting -MR Comment, (Lower Body Dressing) OT re-educated pt on use of AE for increased I and safety w/ ADLs while limited by spinal precautions. -MR Row Name 02/06/251521 Toileting Assessment/Training [place] Level (Toileting) perform perineal hygiene;toileting skills -MR Assistive Devices (Toileting) toilet paper aid -MR Comment, (Toileting) OT issued and educated pt on use of toilet paper aide for increased I and safety w/ toileting task while being limited by spinal precautions. -MR Row Name 02/06/25 1522 Bathing Assessment/Intervention [place] Level (Bathing) bathing skills -MR Comment, (Bathing) [...] ADLs. Pt very motivated to return to [facility]. -MR Row Name 02/06/25 153 Therapy Plan Review/Discharge Plan (OT) Anticipated Discharge Disposition (OT) residential facility -MR Row Name 02/06/25 153 Vital [...] Therapist Occupational Therapy Education Title: PT OT POTATO GRADER Therapies (In Progress) Topic: Occupational Therapy (In [...] Received On 02/06/25 -MR -- Timed Charges 18518 - Gait Training Minutes -- 16 -ND 78989 - OT Therapeutic Activity Minutes 18 -MR -- 74535 - OT Self Care/Mgmt Minutes 20 -MR [...] Description Service Date Service Provider Modifiers Qty 80316018405 HC OT THERAPEUTIC ACT EA 15 MIN 02/06/2025 Sheba Vasquez OT GO 1 [id number] HC OT SELF CARE/MGMT/TRAIN EA 15 MIN 02/06/2025 Sheba Vasquez OT GO 2 Sheba Vasquez OT 02/06/2025 * Case Management/Social Work - Kristy Ramirez, RN - 02/06/2025 2:23 PM EDT Case Management Discharge Note Final Note: Plan to transfer to [facility] rehab on 02-07, insurance approved. Call report to [phone] and fax d/c summary [phone]. Transportation arranged with [facility] van and pick up worker is 1530 on 02-06. Please have patient at the [address] Maternity Entrance by 1520. I talked with patient's and updated. I called patient's dtr and updated her on discharge. Selected Continued Care - Admitted Since 02/03/2025 Destination Coordination complete. Service Provider Services Address Phone Fax Patient Preferred [facility] [address], [facility] [address] -- Durable Medical Equipment No services [...] selected for the patient. Transportation Services Ambulance: [facility] Transportation Final Discharge Disposition Code: 03 - residential facility (SNF) * Therapy Treatment Note - [...] GERD (gastroesophageal reflux disease) History of transfusion [facility], no reaction Hyperlipidemia Hypertension Past Surgical History: Procedure Laterality Date BREAST BIOPSY Right multiple COLONOSCOPY HEMORRHOIDECTOMY LUMBAR DISCECTOMY FUSION INSTRUMENTATION N/A 05/16/2022 Procedure: LUMBAR DECOMPRESSION WITH FUSION INSTRUMENTATION WITH PEDICLE SCREWS, CAGE AND ALLOGRAFTL4-5; Surgeon: Vini Peterson MD; Location: [facility] OR; Service: Orthopedic Spine; Laterality: N/A; LUMBAR DISCECTOMY FUSION INSTRUMENTATION N/A 02/03/2025 Procedure: REVISION DECOMPRESSION WITH REVISED FUSION WITH PEDICLE SCREWS WITH CEMENT AUGMENTATION,AND HARDWARE REVISION L4-5; Surgeon: Vini Peterson MD; Location: [facility] OR; Service: Orthopedic Spine; Laterality: N/A; [...] Row Name 02/06/25 1401 Sit-Stand Transfer Sit-Stand [place] (Transfers) contact guard;verbal cues;nonverbal cues (demo/gesture) -ND Assistive Device (Sit-Stand Transfers) walker, front-wheeled -ND Comment, (Sit-Stand Transfer) from chair, from toilet. Increased pain in standing. -ND Row Name 02/06/25 1401 Gait/Stairs (Locomotion) [place] Level (Gait) minimum assist (75% patient effort);verbal [...] PT Physical Therapist Obj/Interventions Row Name 02/06/25 1407 Balance Balance Assessment sitting static balance;sitting dynamic [...] No documentation. Clinical Impression Row Name 02/06/25 1407 Pain Pretreatment Pain Rating 5/10 -ND Posttreatment Pain Rating 7/10 -ND Pain Location back -ND Pain Side/Orientation generalized -ND Pain Management Interventions positioning techniques utilized;exercise or physical activity utilized;activity modification encouraged;cold applied -ND Response to Pain Interventions activity participation with increased pain -ND Row Name 02/06/25 1406 Plan of Care Review Plan of Care [...] Therapist Physical Therapy Education Title: PT OT POTATO GRADER Therapies (In Progress) Topic: Physical Therapy (Done) [...] Metcalf Initials Effective Dates Name Provider Type [facility] [place] 07/20/23 - Amaris Reyes, PT Physical [...] PT Received On 02/06/25 - Timed Charges 97845 - Gait Training Minutes 16 - 95022 - PT Therapeutic Activity Minutes 10 -ND Total Minutes Timed Charges Total Minutes - Total Minutes User Metcalf (r) = Recorded By, (t) = Taken By, (c) = Cosigned By Initials Name Provider Type Amaris Rahman, PT Physical Therapist Therapy Charges for Today Code Description Service Date Service Provider Modifiers Qty 16954049842 HC PT THER PROC EA 15 MIN 02/05/2025 Amaris Reyes, PT GP 1 60985933745 HC GAIT TRAINING EA 15 MIN 02/05/2025 Amaris Reyes, PT GP 1 28032560100 HC PT THERAPEUTIC ACT EA 15 MIN 02/05/2025 Amaris Reyes, PT GP 1 16838109823 HC GAIT TRAINING EA 15 MIN 02/06/2025 Amaris Reyes, PT GP 1 09402755826 HC PT THERAPEUTIC ACT EA 15 MIN 02/06/2025 Amaris Reyes, PT GP 1 PT G-Codes Outcome Measure Options: AM-PAC 6 Clicks Basic Mobility (PT) AM-PAC 6 Clicks Score (PT): 17 AM-PAC 6 Clicks Score (OT): 20 PT Discharge Summary Anticipated Discharge Disposition (PT): residential facility Amaris Reyes PT 02/06/2025 * Case Management/Social Work - David Noel RN - 02/05/2025 2:42 PM EDT Continued Stay Note [facility] Patient Name: Gladys Mendes Today's Date: 02/05/2025 Admit Date: 02/03/2025 Plan: skilled rehab at [facility], pending insurance approval Discharge Plan Row Name 02/05/25 1440 Plan Plan skilled rehab at [facility], pending insurance approval Patient/Family in Agreement with Plan yes Plan Comments Met with patient and her family at the bedside to discuss discharge plan. Patient is agreeable to therapy's recommendation for inpatient rehab. Referrals given to Edyta with [facility] and Jes with [facility]. Patient accepts bed offer to [facility] in [place]. CM will initiate precertification for insurance approval today. CM will continue to follow and assist with discharge planning. Final Discharge Disposition Code 03 - residential facility (SNF) Discharge Codes No documentation. David [...] GERD (gastroesophageal reflux disease) History of transfusion [facility], no reaction Hyperlipidemia Hypertension Past Surgical History: Procedure Laterality Date BREAST BIOPSY Right multiple COLONOSCOPY HEMORRHOIDECTOMY LUMBAR DISCECTOMY FUSION INSTRUMENTATION N/A 05/16/2022 Procedure: LUMBAR DECOMPRESSION WITH FUSION INSTRUMENTATION WITH PEDICLE SCREWS, CAGE AND ALLOGRAFTL4-5; Surgeon: Vini Peterson MD; Location: [facility] OR; Service: Orthopedic Spine; Laterality: N/A; LUMBAR DISCECTOMY FUSION INSTRUMENTATION N/A 02/03/2025 Procedure: REVISION DECOMPRESSION WITH REVISED FUSION WITH PEDICLE SCREWS WITH CEMENT AUGMENTATION,AND HARDWARE REVISION L4-5; Surgeon: Vini Peterson MD; Location: [facility] OR; Service: Orthopedic Spine; Laterality: N/A; [...] Row Name 02/05/25 1010 Sit-Stand Transfer Sit-Stand [place] (Transfers) contact guard;nonverbal cues (demo/gesture);verbal cues -ND Assistive Device (Sit-Stand Transfers) walker, front-wheeled -ND Comment, (Sit-Stand Transfer) x1 from chair, x1 from toilet. Increased time for upright posture dueto pain. -ND Row Name 02/05/25 1010 Gait/Stairs (Locomotion) [place] Level (Gait) minimum assist (75% patient effort);verbal [...] Therapist Physical Therapy Education Title: PT OT POTATO GRADER Therapies (In Progress) Topic: Physical Therapy (Done) [...] PT Received On 02/05/25 - Timed Charges 71740 - PT Therapeutic Exercise Minutes 10 -ND 27774 - Gait Training Minutes 15 -ND 88628 - PT Therapeutic Activity Minutes 15 -ND Total Minutes Timed Charges Total Minutes 40 -ND Total Minutes 40 -ND User Metcalf (r) = Recorded By, (t) = Taken By, (c) = Cosigned By Initials Name Provider Type [place] Amaris Reyes PT Physical Therapist Therapy Charges for Today Code Description Service Date Service Provider Modifiers Qty 22012448705 HC GAIT TRAINING EA 15 MIN 02/04/2025 Amaris Reyes, PT GP 1 12142319719 HC PT THERAPEUTIC ACT EA 15 MIN 02/04/2025 Amaris Reyes, PT GP 1 61925837549 HC PT THER PROC EA 15 MIN 02/05/2025 Amaris Reyes, PT GP 1 00543764739 HC GAIT TRAINING EA 15 MIN 02/05/2025 Amaris Reyes, PT GP 1 67304389855 PT THERAPEUTIC ACT EA 15 MIN 02/05/2025 Amaris Reyes, PT GP 1 PT G-Codes Outcome Measure Options: AM-PAC 6 Clicks Basic Mobility (PT) AM-PAC 6 Clicks Score (PT): 17 AM-PAC 6 Clicks Score (OT): 20 PT Discharge Summary Anticipated Discharge Disposition (PT): residential facility Amaris Reyes PT 02/05/2025 * Therapy [...] GERD (gastroesophageal reflux disease) History of transfusion [facility], no reaction Hyperlipidemia Hypertension Past Surgical History: Procedure Laterality Date BREAST BIOPSY Right multiple COLONOSCOPY HEMORRHOIDECTOMY LUMBAR DISCECTOMY FUSION INSTRUMENTATION N/A 05/16/2022 Procedure: LUMBAR DECOMPRESSION WITH FUSION INSTRUMENTATION WITH PEDICLE SCREWS, CAGE AND ALLOGRAFTL4-5; Surgeon: Vini Peterson MD; Location: [facility] OR; Service: Orthopedic Spine; Laterality: N/A; LUMBAR DISCECTOMY FUSION INSTRUMENTATION N/A 02/03/2025 Procedure: REVISION DECOMPRESSION WITH REVISED FUSION WITH PEDICLE SCREWS WITH CEMENT AUGMENTATION,AND HARDWARE REVISION L4-5; Surgeon: Vini Peterson MD; Location: [facility] OR; Service: Orthopedic Spine; Laterality: N/A; [...] oriented x 4 -ND Row Name 02/04/25 1338 Safety Issues/Impairments Affecting Functional Mobility Safety Issues [...] Row Name 02/04/25 1336 Sit-Stand Transfer Sit-Stand [place] (Transfers) contact guard;verbal cues;nonverbal cues (demo/gesture) -ND Assistive Device (Sit-Stand Transfers) walker, front-wheeled -ND Comment, (Sit-Stand Transfer) x1 from chair, increased time for upright posture. -VT Row Name 02/04/25 1331 Gait/Stairs (Locomotion) [place] Level (Gait) minimum assist (75% patient effort);verbal [...] 02/04/25 134 Motor Skills Therapeutic Exercise hip;knee;ankle -VT Row Name 02/04/25 134 Hip (Therapeutic Exercise) Hip (Therapeutic Exercise) isometric exercises -ND Hip Isometrics (Therapeutic Exercise) bilateral;gluteal sets;other (see comments);10 repetitions Abdominal setting -ND Row Name 02/04/25 134 Knee (Therapeutic Exercise) Knee (Therapeutic Exercise) strengthening exercise -ND Knee Strengthening (Therapeutic Exercise) bilateral;LAQ (long arc quad);10 repetitions -VT Row Name 02/04/25 134 Ankle (Therapeutic Exercise) Ankle (Therapeutic Exercise) AROM (active range of motion) -ND Ankle AROM (Therapeutic Exercise) bilateral;dorsiflexion;plantarflexion;10 repetitions -VT Row Name 02/04/25 134 Balance Balance Assessment [...] Therapist Physical Therapy Education Title: PT OT POTATO GRADER Therapies (In Progress) Topic: Physical Therapy (Done) [...] PT Received On 02/04/25 -ND Timed Charges 15177 - Gait Training Minutes 10 -ND 85086 - PT Therapeutic Activity Minutes 17 -ND Total Minutes Timed Charges Total Minutes 27 - Total Minutes 27 -ND User Metcalf (r) = Recorded By, (t) = Taken By, (c) = Cosigned By Initials Name Provider Type [place] Amaris Reyes PT Physical Therapist Therapy Charges for Today Code Description Service Date Service Provider Modifiers Qty 51696488799 HC PT EVAL MOD COMPLEXITY 4 02/03/2025 Amaris Reyes, PT GP 1 60132053783 HC PT THER SUPP EA 15 MIN 02/03/2025 Amaris Reyes, PT GP 3 69384408015 HC GAIT TRAINING EA 15 MIN 02/04/2025 Amaris Reyes, PT GP 1 [id number] PT THERAPEUTIC ACT EA 15 MIN 02/04/2025 Amaris Reyes, PT GP 1 PT G-Codes Outcome Measure Options: AM-PAC 6 Clicks Basic Mobility (PT) AM-PAC 6 Clicks Score (PT): 17 AM-PAC 6 Clicks Score (OT): 20 PT Discharge Summary Anticipated Discharge Disposition (PT): residential facility Amaris Reyes PT 02/04/2025 * Case Management/Social Work - David Noel RN - 02/04/2025 12:28 PM EDT Discharge Planning Assessment [facility] Patient Name: Gladys Mendes Today's Date: 02/04/2025 [...] with help/services Patient/Family Anticipated Services at 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 There is 1 step to enter the home. At baseline, patient is independent with ADLs and uses a rolling walker, cane, rollator, and shower chair. Patient denies any home health services or home oxygen use. Patient has [employer] Medicare with prescription benefits [facility] Patient's goal is home at discharge. Son will transport. CM will continue to follow and assist with discharge planning as recommendations become available. Final Discharge Disposition Code 01 - home or self-care Demographic Summary Row Name 02/04/25 1222 General Information Admission Type inpatient Arrived From home Referral Source physician Reason for Consult discharge planning Preferred Language Chadian General Information Comments PCP Placido Mercado Contact [...] GERD (gastroesophageal reflux disease) History of transfusion [facility], no reaction Hyperlipidemia Hypertension Past Surgical History: Procedure Laterality Date BREAST BIOPSY Right multiple COLONOSCOPY HEMORRHOIDECTOMY LUMBAR DISCECTOMY FUSION INSTRUMENTATION N/A 05/16/2022 Procedure: LUMBAR DECOMPRESSION WITH FUSION INSTRUMENTATION WITH PEDICLE SCREWS, CAGE AND ALLOGRAFTL4-5; Surgeon: Vini Peterson MD; Location: [facility] OR; Service: Orthopedic Spine; Laterality: N/A; LUMBAR DISCECTOMY FUSION INSTRUMENTATION N/A 02/03/2025 Procedure: REVISION DECOMPRESSION WITH REVISED FUSION WITH PEDICLE SCREWS WITH CEMENT AUGMENTATION,AND HARDWARE REVISION L4-5; Surgeon: Vini Peterson MD; Location: [facility] OR; Service: Orthopedic Spine; Laterality: N/A; [...] Bed Mobility rolling right;scooting/bridging;supine-sit -SA Rolling Right [place] (Bed Mobility) verbal cues;minimum assist (75% patient effort) -SA Scooting/Bridging [place] (Bed Mobility) standby assist;verbal cues -SA Supine-Sit [place] (Bed Mobility) minimum assist (75% patient effort);nonverbal cues (demo/gesture);verbal cues - Assistive Device (Bed Mobility) bed rails;head of bed elevated - Comment, (Bed Mobility) Increased time and effort secondary to pain; verbal cues for log roll and sequencing; Min A for trunk -SA Row Name 02/04/25946 Transfers Transfers sit-stand transfer;stand-sit transfer;toilet transfer - Row Name 02/04/25946 Sit-Stand Transfer Sit-Stand [place] (Transfers) verbal cues;contact guard -SA Assistive Device (Sit-Stand Transfers) walker, front-wheeled -SA Comment, (Sit-Stand Transfer) VC for hand placement; 1x from EOB, 1x from chair to complete LBD - Row Name 02/04/25946 Stand-Sit Transfer Stand-Sit [place] (Transfers) verbal cues;contact guard -SA Assistive Device (Stand-Sit Transfers) walker, front-wheeled -SA Comment, (Stand-Sit Transfer) VC to reach back for arm rests of chair - Row Name 02/04/25946 Toilet Transfer Type (Toilet Transfer) sit-stand;stand-sit -SA [place] Level (Toilet Transfer) verbal cues;contact guard -SA [...] Row Name 02/04/25946 Upper Body Dressing Assessment/Training [place] Level (Upper Body Dressing) doff;don;bra/undergarment;pull-over garment;minimum assist(75% patient effort) - Position (Upper Body Dressing) unsupported sitting -SA Row Name 02/04/25 09 Lower Body Dressing Assessment/Training [place] Level (Lower Body Dressing) don;pants/bottoms;verbal cues;minimum assist (75% patient effort) - Assistive Devices (Lower Body Dressing) sea foam kiss maker - Position (Lower Body Dressing) unsupported sitting - Comment, (Lower Body Dressing) Pt educated on spinal precautions for LBD; pt provided AE for LBD; pt practiced with sea foam kiss maker and completed LBD with reach, Min A, and verbal cues; pt needs education and practice with sock aid and long handled shoe horn - Row Name 02/04/25946 Grooming Assessment/Training [place] Level (Grooming) wash face, hands;contact guard assist - Position (Grooming) sink side - Row Name 02/04/25946 Toileting Assessment/Training [place] Level (Toileting) perform perineal hygiene;standby assist - [...] -SA Comment, Balance No LOB at this [facility] -SA User Metcalf (r) = Recorded By, (t) = Taken By, (c) = Cosigned By Initials Name Provider Type SA Winter Burton, OT Occupational Therapist Goals/Plan Row Name 02/04/25 111 Bed Mobility Goal 1 (OT) Activity/Assistive Device (Bed Mobility Goal 1, OT) bed mobility activities, all -SA [place] Level/Cues Needed (Bed Mobility Goal 1, OT) independent -SA Time Frame (Bed Mobility Goal 1, OT) buttermaker continuous churn goal (LTG);10 days -SA Progress/Outcomes (Bed Mobility Goal 1, OT) new goal -SA Row Name 02/04/25 111 Bathing Goal 1 (OT) Activity/Device (Bathing Goal 1, OT) bathing skills, all -SA [place] Level/Cues Needed (Bathing Goal 1, OT) independent -SA Time Frame (Bathing Goal 1, OT) buttermaker continuous churn goal (LTG);10 days -SA Progress/Outcomes (Bathing Goal 1, OT) new goal -SA Row Name 02/04/25 111 Dressing Goal 1 (OT) Activity/Device (Dressing Goal 1, OT) dressing skills, all -SA [place]/Cues Needed (Dressing Goal 1, OT) independent -SA Time Frame (Dressing Goal 1, OT) shelter goal (LTG);10 days -SA Progress/Outcome (Dressing Goal [...] Review/Discharge Plan (OT) Anticipated Discharge Disposition (OT) residential facility - Row Name 02/04/2557 Vital Signs [...] Therapist Occupational Therapy Education Title: PT OT POTATO GRADER Therapies (In Progress) Topic: Occupational Therapy (In Progress) Point: ADL training (In Progress) Learning Progress Summary Patient Acceptance, E,D, NR by at 02/04/2025 1116 Point: Precautions (In Progress) Learning Progress Summary Patient Acceptance, E,D, NR by at 02/04/2025 111 Point: Body mechanics (In Progress) Learning Progress Summary Patient Acceptance, E,D, NR by at 02/04/2025 1116 User Metcalf Initials Effective Dates Name Provider Type [facility] 12/18/24 - Winter Burton OT Occupational [...] Re-Cert Due Date 02/14/25 -SA Timed Charges 70902 - OT Self Care/Mgmt Minutes 15 -SA [...] Description Service Date Service Provider Modifiers Qty [id number] OT SELF CARE/MGMT/TRAIN EA 15 MIN 02/04/2025 Winter Burton OT GO 1 57237227068 HC-OT EVAL MOD COMPLEXITY 5 02/04/2025 Winter [...] GERD (gastroesophageal reflux disease) History of transfusion [facility], no reaction Hyperlipidemia Hypertension Past Surgical History: Procedure Laterality Date BREAST BIOPSY Right multiple COLONOSCOPY HEMORRHOIDECTOMY LUMBAR DISCECTOMY FUSION INSTRUMENTATION N/A 05/16/2022 Procedure: LUMBAR DECOMPRESSION WITH FUSION INSTRUMENTATION WITH PEDICLE SCREWS, CAGE AND ALLOGRAFTL4-5; Surgeon: Vini Peterson MD; [facility]; Service: Orthopedic Spine; Laterality: N/A; MASTOIDECTOMY [...] Bed Mobility Bed Mobility supine-sit;sit-supine -ND Supine-Sit [place] (Bed Mobility) minimum assist (75% patient effort);nonverbal cues (demo/gesture);verbal cues -ND Sit-Supine [place] (Bed Mobility) minimum assist (75% patient effort);nonverbal cues (demo/gesture);verbal cues -ND Assistive Device (Bed Mobility) bed rails;head of bed elevated -ND Comment, (Bed Mobility) Increased time for task secondary to pain. Min-A with cues for log roll technique. -ND Row Name 02/03/25 1637 Sit-Stand Transfer Sit-Stand [place] (Transfers) minimum assist (75% patient effort);verbal cues;nonverbal cues (demo/gesture) -ND Assistive Device (Sit-Stand Transfers) walker, front-wheeled -ND Comment, (Sit-Stand Transfer) Cues for hand placement. Increased time for upright posture. -ND Row Name 02/03/25 1637 02/03/25 1625 Gait/Stairs (Locomotion) [place] Level (Gait) minimum assist (75% patient effort);1 [...] PT) sit to supine/supine to sit -ND [place] Level/Cues Needed (Bed Mobility Goal 1, PT) modified independence -ND Time Frame (Bed Mobility Goal 1, PT) short term goal (STG);3 days -ND Row Name 02/03/25 164 Transfer Goal 1 (PT) Activity/Assistive Device (Transfer Goal 1, PT) mzs-oe-pzjii/krcnc-uq-yes;bot-pu-zlrqj/nrzhl-ea-yse-ND [place] Level/Cues Needed (Transfer Goal 1, PT) modified independence -ND Time Frame (Transfer Goal 1, PT) buttermaker continuous churn goal (LTG);5 days -ND Row Name 02/03/25 164 Gait Training Goal 1 (PT) Activity/Assistive Device (Gait Training Goal 1, PT) gait (walking locomotion);increase endurance/gait distance;decrease fall risk -ND [place] Level (Gait Training Goal 1, PT) modified independence -ND Distance (Gait Training Goal 1, PT) 250 -ND Time Frame (Gait Training Goal 1, PT) shelter goal (LTG);5 days -ND Row Name 02/03/251642 Balance Goal 1 (PT) Activity/Assistive Device (Balance Goal) with functional mobility activities -ND [place] Level/Cues Needed (Balance Goal 1, PT) modified independence -ND Time Frame (Balance Goal 1, PT) long-term goal (LTG);5-7 days -ND Row Name 02/03/251642 Stairs Goal 1 (PT) Activity/Assistive Device (Stairs Goal 1, PT) ascending stairs;descending stairs -ND [place] Level/Cues Needed (Stairs Goal 1, PT) modified independence -ND Number of Stairs (Stairs Goal 1, PT) 1 -ND Time Frame (Stairs Goal 1, PT) buttermaker continuous churn goal (LTG);5 days -ND Row Name 02/03/251642 [...] Therapist Physical Therapy Education Title: PT OT POTATO GRADER Therapies (In Progress) Topic: Physical Therapy (In [...] Description Service Date Service Provider Modifiers Qty 68373097505 HC PT EVAL MOD COMPLEXITY 4 02/03/2025 Amaris Reyes, PT GP 1 30291358121 HC PT THER SUPP EA 15 MIN 02/03/2025 Amaris Reyes, PT GP 3 PT G-Codes Outcome Measure Options: AM-PAC 6 Clicks Basic Mobility (PT) AM-PAC 6 Clicks Score (PT): 17 PT Discharge Summary Anticipated Discharge Disposition (PT): residential facility Amaris Reyes, PT 02/03/2025 documented in [...] DURING SURGERY Routine 02/03/2025 12:08 PM EDT [facility] ARTHRODESIS COMBINED TQ 1NTRSPC LUMBAR 02/03/2025 7:22 AM EDT Special Needs DEPUY WITH CEMENT AUGMENTATION, CLOTH BOIL OFF MACHINE OPERATOR, VIPIN TABLE, CELL SAVER (CONFIRMED WITH MATILDE GEORGES 01/15), C-ARM, O-ARM STEALTH * TYPE AND SCREEN STAT 02/03/2025 6:46 AM EDT SCANNED EKG 02/03/2025 SCANNED - IMAGING 02/03/2025 SCANNED - LABS 02/03/2025 documented in this encounter Results * Potassium (02/05/2025 6:59 AM EDT) Potassium 3.9 3.5 - 5.2 mmol/L 02/05/2025 8:25 AM EDT [facility] Blood Venipuncture / Unknown 02/05/2025 6:59 AM EDT 02/05/2025 7:51 AM EDT us Pavithra Oakes MD LAB BLOOD ORDERABLES Final Result [facility]
[address] [place] [address], * (ABNORMAL) Basic Metabolic Panel (02/04/2025 6:15 AM EDT) Glucose 101(H) 65 - 99 mg/dL 02/04/2025 7:01 AM EDT [facility] BUN 11.2 8.0 - 23.0 mg/dL 02/04/2025 7:01 AM EDT [facility] Creatinine 0.87 0.57 - 1.00 mg/dL 02/04/2025 7:01 AM EDT [facility] Sodium 138 136 - 145 mmol/L 02/04/2025 7:01 AM EDT [facility] Potassium 5.4(H) 3.5 - 5.2 mmol/L 02/04/2025 7:01 AM EDT [facility] Chloride 105 98 - 107 mmol/L 02/04/2025 7:01 AM EDT [facility] CO2 27.0 22.0 - 29.0 mmol/L 02/04/2025 7:01 AM EDT [facility] Calcium 9.5 8.6 - 10.5 mg/dL 02/04/2025 7:01 AM [facility] BUN/Creatinine Ratio 12.9 7.0 - 25.0 02/04/2025 7:01 AM EDT [facility] Anion Gap 6.0 5.0 - 15.0 mmol/L 02/04/2025 7:01 AM [facility] eGFR 68.7 >60.0 mL/min/1.7 3 02/04/2025 7:01 AM [facility] Blood Venipuncture / Unknown 02/04/2025 6:15 AM EDT 02/04/2025 6:34 AM EDT [facility] - 02/04/2025 7:01 AM EDT [...] BLOOD ORDERABLES Final Result Performing Organization Address [facility] Co de Phone Number [facility]
[address] [place] [address], * (ABNORMAL) Hemoglobin & Hematocrit, Blood (02/04/2025 6:15 AM EDT) Hemoglobin 9.7(L) 12.0 - 15.9 g/dL 02/04/2025 6:37 AM EDT [facility] Hematocrit 31.1(L) 34.0 - 46.6 % 02/04/2025 6:37 AM EDT [facility] Blood Venipuncture / Unknown 02/04/2025 6:15 AM EDT 02/04/2025 6:33 AM EDT us Vini Peterson MD LAB BLOOD ORDERABLES Final Res ult [facility]
[address] [place] [address], * [place] C Arm During Surgery (02/03/2025 12:08 PM EDT) Narrative SYSTEMGENERATED, DOCUMENTATION - 02/03/2025 12:08 PM EDT This procedure was auto-finalized with no dictation required. us Vini Peterson MD IMG FLUOROSCOPY ORDERABLES Fin al Result * Type & Screen (02/03/2025 6:46 AM EDT) ABO Type A 02/03/2025 7:43 AM EDT [facility] RH type Positive 02/03/2025 7:43 AM EDT [facility] Antibody Screen Negative 02/03/2025 7:43 AM EDT [facility] T&S Expiration Date 02/06/2025 11:59:59 PM 02/03/2025 7:43 AM EDT [facility] Blood Line / Unknown 02/03/2025 6: 46 AM EDT 02/03/2025 6:52 AM EDT Vini Peterson MD BLOOD BANK TEST ORDERABLES Sanchez antonina Result - Final [facility]
[address] [place] [address], * LABS SCANNED (02/03/2025) Result [facility] BLOOD ORDERABLES Final Re sult * IMAGING SCANNED (02/03/2025) Anatomical Region Laterality Modality Radiographic Carmella ging Result [facility] IMG DIAGNOSTIC IMAGING ORDERA BLES Final Result * ECG Scan (02/03/2025) [facility] ECG ORDERABLES Final Result documented in this [...] for diarrhea bupivacaine-EPINEPHrine PF (MARCAINE w/EPI) 0.25% -[id number] injection As Needed, Starting on Mon02/03/25 at [...] 0805 (Given - Provider: Ivana Espinoza RN) sodium chloride 0.9 % flush [...] documented as of this encounter Care Teams Customer Order Clerk Relationship Specialty Start Date End Date Placido Mercado MD [address] [place] [address] [place] [address] PCP - General Family Medicine 01/29/25 documented as of this encounter
--- OUTSIDE RECORDS SUMMARY | 2025-02-03 07:37 | XMS_ITS | Encounter Summary ---
Author Organization [facility] Address [address] [place] [address] Care Team Providers Care Modern And Contemporary Art Curator Name Role Phone Placido Mercado MD Primary Care Provider [phone] Reason for Visit * Auth/Cert Specialty Diagnoses / Procedures Referred By Contac t Referred To Contact Procedures [place] ARTHRODESIS COMBINED TQ 1NTRSPC LUMBAR L 4-5 REVISION DECOMPRESSION WITH REVISED FUSION WITH PEDICLE SCREWS, CEMENT AUGMENTATION AND POSSIBLE EXTENSION OF FUSION Referral ID Status Reason Start Date Expiration Date Visits Re quested Visits Authorized [id number] 1 1 Encounter Details Date Type Department Care Team (Late st Contact Info) Description 02/03/2025 7:37 AM EDT Anesthesia Event [facility] OR [address] [place] [address] Vini Schwartz MD [address] [place], [place] [id number] Anesthesia Record Procedure Summary Procedure Name Responsible [...] Closed Surgi 02/03/25 0809 by Kirti Cheng, cupola tender 05/16/22; 1057; N; lumbar spine; Incision; 02/03/25; [...] drink = 0.6 oz pur e alcohol) [facility] Utilities Answer Date Recorded In the past 12 months has [employer], gas, oil, or water [employer] threatened to shut off services in your [...] care, and heating? Not very hard 02/04/2025 [facility] - Occupational Stress Questionnaire Answer [...] GED or equivalent No 02/04/2025 Preferred Language Togolese 02/04/2025 PHQ-2 Answer Date Recorded Patient Health [...] 6:30 AM EDT Jes Noriega RN * [place] Suicide Severity Rating Scale (Screener/Recent Self-Report) Question [...] Date: 02/03/25 Room / Location: [facility] OR [address] [place] [address] [facility] OR Anesthesia Start: 736 Anesthesia Stop: [...] status: acceptable * Anesthesia Procedure Notes - David Mcmillan CRNA - 02/03/2025 8:05 AM EDT Associated Order(s): Airway Airway Reason: elective Date/Time: 02/03/2025 7:42 AM Airway not difficult General Information and Staff Patient location during procedure: OR MFG ASSOC/CAA: David Mcmillan CRNA Indications and Patient Condition [...] normal Neuro/Psych GI/Hepatic/Renal/Endo Musculoskeletal Abdominal 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 Other Anesthesia Plan ASA 2 general intravenous [...] CRNA - 02/03/2025 8:05 AM EDT David cMmillan CRNA 02/03/2025 8:06 AM Airway Reason: elective Date/Time: 02/03/2025 7:42 AM Airway not difficult General Information and Staff Patient location during procedure: OR MFG ASSOC/CAA: David Mcmillan CRNA Indications and Patient Condition [...] AM EDT 0.2 mcg/kg/min 9.252 mL/hr phenylephrine (EPTER-SYNEPHRINE) injection Intravenous, As Needed, Starting on Mon02/03/25 [...] documented as of this encounter Care Teams Modern And Contemporary Art Curator Relationship Specialty Start Date End Date Placido Mercado MD [address] [place] [address] PCP - General Family Medicine 01/29/25 documented as of this encounter
--- OUTSIDE RECORDS SUMMARY | 2025-02-16 18:44 | XMS_ITS | Encounter Summary ---
[facility] Address [address] [place] [address] Care Team Providers Care Shredding Machine Tender Name Role Phone Placido Mercado MD Primary Care Provider [phone] Reason for Referral * Pain Management (Routine) - Authorized Specialty Diagnoses / Procedures Referred By Ryan garcia Referred To Contact Pain Medicine Diagnoses Chronic radicular lumbar pain Procedures [place] OFFICE/OUTPATIENT NEW MODERATE MDM 45 MINUTES Alexi Mattson MD [address] [place] [address] Phone: tel: fax: Matteo Curran MD [address] [address] Phone: tel: fax: Referral ID Status Reason Start Date Expiration Date Visits Requested Visits Authorized [id number] Authorized Specialty Services Required 02/16/2025 05/18/2026 1 1 Reason for Visit * Reason Comments Back Pain Encounter Details Date Type Department Care Team (Late st Contact Info) Description 02/16/2025 6:44 PM EDT - 02/17/2025 12:04 AM EDT Emergency [facility] EMERGENCY DEPARTMENT [address] [phone] Alexi Mattson MD [address] [place] [address] [address] [place] [address] Chronic radicular lumbar pain (Primary Dx) Discharge Disposition: Home or Self Care Social History Tobacco Use Types Packs/Day Years Used Date Smoking Tobacco: Former Smokeless Tobacco: Never Alcohol Use Standard Drinks/Week Comments Never 0 (1 standard drink = 0.6 oz pur e alcohol) [facility] Utilities Answer Date Recorded In the past 12 months has th e [employer], gas, oil, or water [employer] threatened to shut off services in your [...] care, and heating? Not very hard 02/04/2025 [facility] [place] of Occupat ional Health - Occupational Stress [...] GED or equivalent No 02/04/2025 Preferred Language Guinean 02/04/2025 PHQ-2 Answer Date Recorded Patient Health [...] 6:50 PM EDT Ankita Graham RN * [place] Suicide Severity Rating Scale (Screener/Recent Self-Report) Question [...] through Care Everywhere. * Chronic Pain Adult (Guinean) documented in this encounter Medications at Time [...] if polyethylene glycol is ineffective). 02/07/2025 Coenzyme T92-Dppwwqu E (QUNOL ULTRA COQ10 PO) Take 100 [...] had this back pain since she was [facility] following a procedure with Dr. Peterson. Pain originates from her right buttocks and radiates down her leg. It occurs intermittently. Usually will dissipate on its own. Today it developed and has not subsided. She was given 80 mg of ketamine IM by EMS on her way to the hospital from her subacute rehab facility-[facility]. She states the pain improved but she [...] GERD (gastroesophageal reflux disease) History of transfusion [facility], no reaction Hyperlipidemia Hypertension Allergies: Patient has [...] * Telemetry Scan (02/16/2025 7:07 PM EDT) [facility] New Onbase ECG ORDERABLES Final Result * Telemetry Scan (02/16/2025 6:56 PM EDT) [facility] New Onbase ECG ORDERABLES Final Result documented [...] documented as of this encounter Care Teams Shredding Machine Tender Relationship Specialty Start Date End Date Placido Mercado MD [address] [place] [address] PCP - General Family Medicine 01/29/25 documented as of this encounter
--- OUTSIDE RECORDS SUMMARY | 2025-04-03 14:02 | XMS_ITS | Encounter Summary ---
Author Organization [facility] Address [address] [place] [address] Care Team Providers Care Systems Test Analyst Name Role Phone Placido Mercado MD Primary Care Provider [phone] Encounter Details Date Type Department Care Team (Late st Contact Info) Description 02/07/2025 [facility] [address] [place] [phone] Lauren Etienne, RN Social History Tobacco Use Types Packs/Day Years Used Date Smoking Tobacco: Former Smokeless Tobacco: Never Alcohol Use Standard Drinks/Week Comments Never 0 (1 standard drink = 0.6 oz pur e alcohol) [facility] Utilities Answer Date Recorded In the [...] care, and heating? Not very hard 02/04/2025 [facility] [place] of Occupat ional Health - Occupational Stress [...] GED or equivalent No 02/04/2025 Preferred Language Barbadian 02/04/2025 PHQ-2 Answer Date Recorded Patient Health [...] not included. Prep Survey Flowsheet Row Responses Alevism facility patient discharged from? [place] Is LACE score < 7 ? No Eligibility Not Eligible What are the reasons patient is not eligible? Subacute Care Center [[facility]] Does the patient have one of the [...] documented as of this encounter Care Teams Systems Test Analyst Relationship Specialty Start Date End Date Placido Mercado MD [address] [place] [address] [address] [place], [place] [address] PCP - General Family Medicine 01/29/25 documented as of this encounter
--- OUTSIDE RECORDS SUMMARY | 2025-04-03 14:02 | XMS_ITS | Encounter Summary ---
Author Organization Healthcare Address [address] [place] [address] Care Team Providers Care Film Or Videotape Editor Name Role Phone Placido Mercado MD Primary Care Provider [phone] Encounter Details Date Type Department Care Team (Late st Contact Info) Description 10/16/2023 Lab Requisition [facility] [address] [place] [address] Jonas Tony MD [address] [facility] [address] [place] [address] Encounter for general adult medical [...] place to sleep or slept in a group home (including now)? No 10/16/2023 Utilities Answer Date [...] ORDERABLES Final Result Performing Organization Address City/State/[facility] Co de Phone Number [facility] [address] [place] [address] documented in this encounter Visit Diagnoses Diagnosis Encounter for general adult medical examination without abnormal findings documented in this encounter Additional Health Concerns Assessment Noted Time A Body Mass Index follow-up plan has been documented for the patient 10/23/2023 2:41 PM EST documented as of this encounter Care Teams Film Or Videotape Editor Relationship Specialty Start Date End Date Placido Mercado MD [address] [place] [id number] PCP - General 10/16/23 documented as of this encounter
--- OUTSIDE RECORDS SUMMARY | 2025-04-03 14:02 | XMS_ITS | Clinical Summary ---
[facility] Organization [facility] Address [address] [place] [address] Care Team Providers Care Fountain Pen Nibs Inspector Name Role Phone Placido Mercado MD Primary Care Provider [phone] Allergies No known active allergies Medications lisinopril-hydr [...] 1 capsule by mouth Daily. Active Coenzyme V22-Tiqbmiz E (QUNOL ULTRA COQ10 PO) Take 100 [...] EDT - 02/17/2025 12:04 AM EDT Emergency [facility] EMERGENCY DEPARTMENT [address] [address] Alexi Mattson MD Chronic radicular lumbar pain (Primary Dx) Discharge Disposition: Home or Self Care 02/16/2025 Travel 02/07/2025 Readmission Management [facility] NURSE CALL CENTER [address] [place] [address] Lauren Etienne RN 02/03/2025 7:37 AM EDT Anesthesia Event [facility] [place] [address] [place] [address] Vini Schwartz MD 02/03/2025 7:15 AM EDT - 02/03/2025 12:04 PM EDT Surgery [facility] OR [address] [place] [address] Vini Peterson MD REVISION DECOMPRESSION WITH REVISED FUSION WITH PEDICLE SCREWS WITH CEMENT AUGMENTATION, AND HARDWARE REVISION L4-5 [85264 (CPT )] 02/03/2025 5:14 AM EDT - 02/07/2025 3:28 PM EDT Hospital Encounter [facility] 3G [address] [place] [address] Vini Peterson MD S/P lumbar spinal fusion (revision decompression L4-5, posterior lateral fusion L4-5) (Primary Dx) Discharge Disposition: Custodial Facility (DC - External) 02/03/2025 Travel 01/29/2025 9:30 AM EDT Pre-Admission Testing [facility] PREADMISSION T [address] [place] [address] 01/29/2025 Travel from Last 3 Months Immunizations [...] drink = 0.6 oz pur e alcohol) [facility] Utilities Answer Date Recorded In the past 12 months has th e electric, gas, oil, or water combionic threatened to shut off services in your [...] care, and heating? Not very hard 02/04/2025 [facility] [place] of Occupat ional Health - Occupational Stress [...] GED or equivalent No 02/04/2025 Preferred Language French 02/04/2025 PHQ-2 Answer Date Recorded Patient Health [...] [employer] Devices Implanted Type Area Ethylbenzene Cracking Supervisor Device Identifier Shelf Expiration Date Model / Serial / Lot Hemost Abs Surgifoam Sz100 8x12 10mm - [id number] Implanted:Qt y: 1 on 05/16/2022 by Vini Peterson MD at [facility] Implant N/A: Spine Lumbar ETH[employer] DIV [employer] J AND J 1974 / / Kt Seal Hemos Abs Floseal Matrx Fast/Prep 10ml - [id number] Implanted:Qt y: 1 on 05/16/2022 by Vini Peterson MD at [facility] Implant N/A: Spine Lumbar [employer] [id number] 02/06/2024 [id number] / / [id number] Allogrft Bone Vivigen Celluar Matrx Formable 5cc - [id number] Implanted:Qt y: 1 on 05/16/2022 by Vini Peterson MD at [facility] Implant N/A: Spine Lumbar [facility] 03/14/2023 [id number] / / Spalavinia Tpal Peek [id number] - [id number] Implanted:Qt y: 1 on 05/16/2022 by Vini Peterson MD at [facility] Implant N/A: Spine Lumbar DEPUY SPINE [id number] / / Scrw Viper Inn[address] - [id number] Implanted:Qt y: 4 on 05/16/2022 by Vini Peterson MD at [facility] Implant N/A: Spine Lumbar DEPUY SPINE [id number] / / Enrike Prebnt Spine Expedium Ti 5.5x40mm - [id number] Implanted:Qt y: 2 on 05/16/2022 by Vini Peterson MD at [facility] Implant N/A: Spine Lumbar DEPUY SPINE [id number] / / Scrw Expedium Pa Ti 6x50mm - [id number] Implanted:Qt y: 2 on 05/16/2022 by Vini Peterson MD at [facility] Implant N/A: Spine Lumbar DEPUY SPINE [id number] / / Scrw Expedium Pa Ti 6x45mm - [id number] Implanted:Qt y: 2 on 05/16/2022 by Vini Peterson MD at [facility] Implant N/A: Spine Lumbar DEPUY SPINE [id number] / / Hemost Abs Surgifoam Sz100 8x12 10mm - [id number] Implanted:Qt y: 2 on 02/03/2025 by Vini Peterson MD at [facility] Implant N/A: Spine Lumbar [employer] DIV [employer] J AND J [id number] 08/05/2028 1974 / / [id number] Description:Given to the bret arellano Wax Bone Hemo Lukens Sharpoint 2.5gm Wht - [id number] Implanted:Qt y: 1 on 02/03/2025 by Vini Peterson MD at [facility] Implant N/A: Spine Lumbar [employer] JAIDA [id number] 02/06/2029 [id number] / / [id number] Description:Given to the bret arellano Allogrft Bone Vivigen Celluar Matrx Formable 5cc - [id number] - [id number] Implanted:Qt y: 1 on 02/03/2025 by Vini Peterson MD at [facility] Implant N/A: Spine Lumbar [facility] [id number] 01/10/2026 [id number] / [id number] / Scrw Gurvinder Viper Fen Pa Ti 7x50mm - [id number] Implanted:Qt y: 2 on 02/03/2025 by Vini Peterson MD at [facility] Implant N/A: Spine Lumbar DEPUY SPINE [id number] / / Scrw Gurvinder Viper Fen Pa Ti 7x45mm - [id number] Implanted:Qt y: 2 on 02/03/2025 by Vini Peterson MD at [facility] Implant N/A: Spine Lumbar DEPUY SPINE [id number] / / Enrike Prebnt Spine Expedium Ti 5.5x40mm - [id number] Implanted:Qt y: 2 on 02/03/2025 by Vini Peterson MD at [facility] Implant N/A: Spine Lumbar DEPUY SPINE [id number] / / Scrw Viper Innr St - [id number] Implanted:Qt y: 4 on 02/03/2025 by Vini Peterson MD at [facility] Implant N/A: Spine Lumbar DEPUY SPINE [id number] / / Cmt Bone Confidence/P ls Ds Kt 11cc - [id number] Implanted:Qt y: 1 on 02/03/2025 by Vini Peterson MD at [facility] Implant N/A: Spine Lumbar DEPUY SPINE [id number] / / Kt Seal Hemos Abs Floseal Matrx Fast/Prep 10ml - [id number] Implanted:Qt y: 1 on 02/03/2025 by Vini Peterson MD at [facility] Implant N/A: Spine Lumbar [facility] [id number] 07/30/2026 [id number] / / [id number] Description:Given to the bret lee field Procedures [...] ANESTHESIA INTUBATION Routine 02/03/2025 8:05 AM EDT [place] ARTHRODESIS COMBINED TQ 1NTRSPC LUMBAR 02/03/2025 7:22 AM EDT Special Needs DEPUY WITH CEMENT AUGMENTATION, DIESEL ENGINE MECHANIC APPRENTICE, RK TABLE, CELL SAVER (CONFIRMED WITH MATILDE [...] of2 resultswithin the time period is included. [facility] ECG ORDERABLES Final Result * Potassium (02/05/2025 6:59 AM EDT) Only the most recent of2 resultswithin the time period is included. Potassium 3.9 3.5 - 5.2 mmol/L 02/05/2025 8:25 AM EDT [facility] Blood Venipuncture / Unknown 02/05/2025 6:59 AM EDT 02/05/2025 7:51 AM EDT Pavithra Oakes MD LAB BLOOD ORDERABLES Final Result Performing Organization Address [facility] Co de Phone Number [facility]
[address] [place] [address], * (ABNORMAL) Hemoglobin & Hematocrit, Blood (02/04/2025 6:15 AM EDT) Hemoglobin 9.7(L) 12.0 - 15.9 g/dL 02/04/2025 6:37 AM EDT [facility] Hematocrit 31.1(L) 34.0 - 46.6 % 02/04/2025 6:37 AM EDT [facility] Blood Venipuncture / Unknown 02/04/2025 6:15 AM EDT 02/04/2025 6:33 AM EDT Vini Peterson MD LAB BLOOD ORDERABLES Final Res ult Performing Organization Address [facility] Co de Phone Number [facility]
[address] [place] [address], * (ABNORMAL) Basic Metabolic Panel (02/04/2025 6:15 AM EDT) Glucose 101(H) 65 - 99 mg/dL 02/04/2025 7:01 AM EDT [facility] BUN 11.2 8.0 - 23.0 mg/dL 02/04/2025 7:01 AM EDT [facility] Creatinine 0.87 0.57 - 1.00 mg/dL 02/04/2025 7:01 AM EDT [facility] Sodium 138 136 - 145 mmol/L 02/04/2025 7:01 AM EDT [facility] Potassium 5.4(H) 3.5 - 5.2 mmol/L 02/04/2025 7:01 AM EDT [facility] Chloride 105 98 - 107 mmol/L 02/04/2025 7:01 AM EDT [facility] CO2 27.0 22.0 - 29.0 mmol/L 02/04/2025 7:01 AM EDT [facility] Calcium 9.5 8.6 - 10.5 mg/dL 02/04/2025 7:01 AM EDT [facility] BUN/Creatinine Ratio 12.9 7.0 - 25.0 02/04/2025 7:01 AM EDT [facility] Anion Gap 6.0 5.0 - 15.0 mmol/L 02/04/2025 7:01 AM EDT [facility] eGFR 68.7 >60.0 mL/min/1.7 3 02/04/2025 7:01 AM EDT [facility] Blood Venipuncture / Unknown 02/04/2025 6:15 AM EDT 02/04/2025 6:34 AM EDT Narrative [facility] - 02/04/2025 7:01 AM EDT GFR [...] Oakes MD LAB BLOOD ORDERABLES Final Result [facility]
[address] [place] [address], * FL C Arm During Surgery (02/03/2025 [...] and Staff Patient location during procedure: OR COIL BUILDER/CAA: David Mcmillan CRNA Indications and Patient Condition [...] ABO Type A 02/03/2025 7:43 AM EDT [facility] RH type Positive 02/03/2025 7:43 AM EDT [facility] Antibody Screen Negative 02/03/2025 7:43 AM EDT [facility] T&S Expiration Date 02/06/2025 11:59:59 PM 02/03/2025 7:43 AM EDT [facility] Blood Line / Unknown 02/03/2025 6: 46 AM EDT 02/03/2025 6:52 AM EDT Vini Peterson MD BLOOD BANK TEST ORDERABLES Sanchez antonina Result - Final Performing Organization Address City/[facility]/ZIP Co de Phone Number [facility]
[address] [place] [address], * ECG Scan (02/03/2025) [facility] ECG ORDERABLES Final Result * IMAGING SCANNED (02/03/2025) Anatomical Region Laterality Modality Radiographic Carmella ging [facility] IMG DIAGNOSTIC IMAGING ORDERA BLES Final Result * LABS SCANNED (02/03/2025) [facility] LAB BLOOD ORDERABLES Final Re sult * (ABNORMAL) Protime-INR (01/29/2025 10:14 AM EDT) Protime 12.2 12.2 - 15.3 Seconds 01/29/2025 10:38 AM EDT [facility] INR 0.86(L) 0.89 - 1.12 01/29/2025 10:38 AM EDT [facility] Blood Venipuncture / Unknown 01/29/2025 10:14 AM EDT 01/29/2025 10:21 AM EDT Vini Peterson MD LAB BLOOD ORDERABLES Final Res ult Performing Organization Address [facility]/ZIP Co de Phone Number [facility]
[address] [place] [address], * (ABNORMAL) CBC (No Diff) (01/29/2025 9:58 AM EDT) WBC 4.48 3.40 - 10.80 10*3/mm3 01/29/2025 11:24 AM EDT [facility] RBC 3.91 3.77 - 5.28 10*6/mm3 01/29/2025 11:24 AM EDT [facility] Hemoglobin 11.0(L) 12.0 - 15.9 g/dL 01/29/2025 11:24 AM EDT [facility] Hematocrit 36.0 34.0 - 46.6 % 01/29/2025 11:24 AM EDT [facility] MCV 92.1 79.0 - 97.0 fL 01/29/2025 11:24 AM EDT [facility] MCH 28.1 26.6 - 33.0 pg 01/29/2025 11:24 AM EDT [facility] MCHC 30.6(L) 31.5 - 35.7 g/dL 01/29/2025 11:24 AM EDT [facility] RDW 14.1 12.3 - 15.4 % 01/29/2025 11:24 AM EDT [facility] RDW-SD 47.5 37.0 - 54.0 fl 01/29/2025 11:24 AM EDT [facility] MPV 9.2 6.0 - 12.0 fL 01/29/2025 11:24 AM EDT [facility] Platelets 313 140 - 450 10*3/mm3 01/29/2025 11:24 AM EDT [facility] Blood Venipuncture / Unknown 01/29/2025 9:58 AM EDT 01/29/2025 10:21 AM EDT us Vini Peterson MD LAB BLOOD ORDERABLES Final Res ult [facility]
[address] [place] [address], * MRSA Screen Culture (Outpatient) - Swab, Nares (01/29/2025 9:58 AM EDT) Pathologist [facility] MRSA Screen Cx No Methicillin Resistant Staphylococcus aureus isolated NIKKIE 01/30/2025 10:31 AM EDT [facility] Swab Structure of anterior naris / Unknown Collection / Unknown 01/29/2025 9:58 AM EDT 01/29/2025 10:28 AM EDT [facility] - 01/30/2025 10:31 AM EDT The negative predictive value of this diagnostic test is high and should only be used to consider de-escalating anti-MRSA therapy. A positive result may indicate colonization with MRSA and must be correlated clinically. Vini Peterson MD MICROBIOLOGY - GENERAL ORDERAB LES Final Result Performing Organization Address [facility]/ZIP Co de Phone Number [facility]
[address] [place] [address], [place] [phone] * Hemoglobin A1c (01/29/2025 9:58 AM EDT) Pathologist [facility] Hemoglobin A1C 5.60 4.80 - 5.60 % 01/29/2025 10:50 AM EDT [facility] Blood Venipuncture / Unknown 01/29/2025 9:58 AM EDT 01/29/2025 10:21 AM EDT [facility] - 01/29/2025 10:50 AM EDT Hemoglobin A1C Ranges: Increased Risk for Diabetes 5.7% to 6.4% Diabetes >= 6.5% Diabetic Goal < 7.0% Vini Peterson MD LAB BLOOD ORDERABLES Final Res ult [facility]
[address] [place] [address], [place] [phone] from Last 3 Months Additional Health Concerns Active Problems Noted Date Diagnosed Date Autogenerated Problem 03/06/2025 Insurance [id number] MEDICARE ADVANTAGE [facility] PPO Advance Directives Documents on File Type Date Recorded Patient Hose Sprayer Expl anation LIVING WILL - SCAN 01/29/2025 [...] Release to patient: Routine Release Care Teams Fountain Pen Nibs Inspector Relationship Specialty Start Date End Date Placido Mercado MD [address] [place] [address] PCP - General Family Medicine 01/29/25
--- OUTSIDE RECORDS SUMMARY | 2025-04-03 14:02 | XMS_ITS | Encounter Summary ---
Author Organization [facility] Address [address] [place] [address] Care Team Providers Care Nut Packer Name Role Phone Placido Mercado MD Primary Care Provider [phone] Encounter Details Date Type Department Care Team (Latest Contact Info) Description 02/03/2025 Travel Social History Tobacco Use Types Packs/Day Years Used Date Smoking Tobacco: Former Smokeless Tobacco: Never Alcohol Use Standard Drinks/Week Comments Never 0 (1 standard drink = 0.6 oz pur e alcohol) [facility] Utilities Answer Date Recorded In the past 12 months has [employer] electric, gas, oil, or water company threatened [...] care, and heating? Not very hard 02/04/2025 [facility] [place] of Occupat ional Health - Occupational Stress [...] GED or equivalent No 02/04/2025 Preferred Language Burundian 02/04/2025 PHQ-2 Answer Date Recorded Patient Health [...] 6:30 AM EDT Jes Noriega RN * [place] Suicide Severity Rating Scale (Screener/Recent Self-Report) Question [...] documented as of this encounter Care Teams Nut Packer Relationship Specialty Start Date End Date Placido Mercado MD [address] [place] [address] PCP - General Family Medicine 01/29/25 documented as of this encounter
--- OUTSIDE RECORDS SUMMARY | 2025-04-03 14:02 | XMS_ITS | Clinical Summary ---
Author Organization [facility] Address [address] [place] [address] Care Team Providers Care Briquetter Operator Name Role Phone Placido Mercado MD Primary Care Provider [phone] Allergies No known active allergies Medications gabapentin [...] if needed for headaches. Active HYDROcodone-edith taminophen ([place]) 7.5-325 MG tablet 1 tablet (7.5 mg [...] place to sleep or slept in a long-term (including now)? No 10/16/2023 Utilities Answer Date [...] r (1 - 1-dose 75+ series) 11/08/2022 [id number] Vaccine ( - season) 2024 07/14/2021, 12/11/2020, [...] medications. Staff Staff Role Kristine [facility] Endo Manager Department Jade Vale, POURED PIPE MAKER Sara Shepard, RN Endo Nurse Dipika Najera, ANN Endo Nurse Castillo Cartagena MD Anesthesiologist Melisa Santo, DO Proceduralist Tres aDo MD Proceduralist Preprocedure A history and physical [...] of bowel preparation was evaluated using the [place] Bowel Preparation Scale with scores of: left [...] IgM Negative Negative 10/15/2023 6:39 AM EST [facility] Hepatitis B Core Antibody IgM Negative Negative 10/15/2023 6:39 AM EST [facility] Blood Venous blood specimen / Unknown Venipuncture / Unknown 10/15/2023 12:57 AM EST 10/15/2023 1:14 AM EST us Patricia Barkley APRN, YADI LAB BLOOD ORDERABLES Liliya l Result Performing Organization Address [facility] Co de Phone Number [facility] [address] [place] [address] * (ABNORMAL) Hemoglobin A1c (10/13/2023 11:49 PM EST) Hemoglobin A1c 5.8(H) <5.7 % 10/14/2023 3:36 AM EST [facility] Blood Venous blood specimen / Unknown [...] Adults <6.0% Children and Adolescents <7.5% Source: [place] [employer]. Standards of medical care in diabetes,2017. Diabetes Care.2017:40 (suppl 1):S1-S135. HbA1c assay performed by an ion-exchange chromatography method that is certified traceable to the DCCT. us Hesham Whiteside MD LAB BLOOD ORDERABLES Final Re sult [facility] [address] [place] [address] from Last 3 Months or Most Recently Relevant to Health Maintenance Insurance [employer] MEDICARE Advance Directives * Full Code (Latest Code Status on File) Date Activated Date Inactivated Comments 10/18/2023 4:44 PM 10/23/2023 5:27 PM Question Answer Comments Patient has decision-making capacity? Yes Care Teams Briquetter Operator Relationship Specialty Start Date End Date Placido Mercado MD [facility][note 2] [place] [address] PCP - General 10/16/23
--- OUTSIDE RECORDS SUMMARY | 2025-04-03 14:02 | XMS_ITS | Encounter Summary ---
Author Organization [facility] Address [address] [place] [address] Care Team Providers Care Warehouse Driver Name Role Phone Placido Mercado MD Primary Care Provider [phone] Encounter Details Date Type Department Care Team (Latest Contact Info) Description 02/16/2025 Travel Social History Tobacco Use Types Packs/Day Years Used Date Smoking Tobacco: Former Smokeless Tobacco: Never Alcohol Use Standard Drinks/Week Comments Never 0 (1 standard drink = 0.6 oz pur e alcohol) [facility] Utilities Answer Date Recorded In the past 12 months has [employer] [place] electric, gas, oil, or water company threatened [...] care, and heating? Not very hard 02/04/2025 [facility] [place] of Occupat ional Health - Occupational Stress [...] GED or equivalent No 02/04/2025 Preferred Language Guamanian 02/04/2025 PHQ-2 Answer Date Recorded Patient Health [...] 6:50 PM EDT Ankita Graham, ANN * [place] Suicide Severity Rating Scale (Screener/Recent Self-Report) Question [...] documented as of this encounter Care Teams Warehouse Driver Relationship Specialty Start Date End Date Placido Mercado MD [address] [place], [place] [address] PCP - General Family Medicine 01/29/25 documented as of this encounter
--- NOTE | 2025-04-03 14:26 | A.OFFVIS_ITS ---
[facility] Disclaimer: The information contained in this section may have been updated after the patient was seen, as this information can be updated by other users. Medical History Hammertoe of left foot Left foot drop History of back pain Osteoarthritis History of gastroesophageal reflux (GERD) Hemorrhoid Hyperlipidemia Hypertension History of anemia Cataract Surgical History History of colonoscopy Family History Other Family history of diabetes mellitus type II Family history of hyperlipidemia Family history of hypertension Family history of leukemia Social History Smoking Status: Never smoker alcohol intake: never substance use type: denies use current occupational status: retired Travel in the last 8 weeks?: None household members: children housing: house lives independently: No marital status: well-balanced diet: daily or most days physical activity: none PM Subjective & Objective Subjective Subjective:: Patient is a pleasant 79-year-old female who presents today for follow-up of her right diagnostic SI and right bursa injection on 03/25/2025. Patient does rate her pain today a 0 out of 10. She does state that she ended up having at least 50% improvement that is ongoing. Patient does state from our last appointment she ended up breaking her right arm and does present today with a cast in place. Patient denies any other injuries. She does state that the injections really did seem to make improvements and that it definitely does not seem as severe or is constant. Patient does feel like it took a couple days for it to kick in. Patient has been seeing orthopedics here at [facility]. She did get the compounded cream and states it did okay. Patient does also make mention today that she is having some increased knee pain and is going to physical therapy for her shoulder ongoing. Her Wayne has been reviewed and is appropriate. Review of Systems: General: No recent weight changes, no fever, no sleep disturbances Respiratory: No cough, no shortness of air, no recurring pulmonary infections Cardiovascular/peripheral vascular: No chest pain, no palpitations, no edema, no shortness of breath Gastrointestinal: No new onset incontinence, normal bowel movements reported Genitourinary: No new onset incontinence Musculoskeletal: Low back pain, knee pain Psychiatric: [Normal mood/affect] Neurological: [Denies weakness in extremities], [denies balance issues] Pain at rest (0-10 scale): 0 Objective Objective:: Physical Exam: General: Alert and oriented x3, no acute distress, pleasant and cooperative Lungs: Respirations even and unlabored, symmetrical chest expansion Eyes: PERRL Musculoskeletal: Flexion and extension of lumbar [spine] somewhat guarded secondary to pain, [antalgic gait noted] Neurological: Speech clear, no gross sensory deficit Has patient had previous pain injection?: Yes Percent improvement in pain since last injection: More than 50% Conservative treatment options previously tried: Home exercise plan Length of treatment: Longer than 12 weeks Meds Home Medications and Allergies Home Medications ?Medication ?Instructions ?Recorded ?Confirmed ?Type gabapentin 300 mg capsule 300 mg PO BID Restless leg s yndrome 12/11/22 04/03/25 History lisinopril 20 1 tab PO DAILY High blood pr essure 12/11/22 04/03/25 History mg-hydrochlorothiazide 12.5 mg tablet Held on 12/14/22. Instructions: Resume on 12/16/22. omeprazole 40 mg capsule,delayed 40 mg PO BID Acid ref lux 12/12/22 04/03/25 History release pravastatin 40 mg tablet 40 mg PO HS Cholesterol 12/0304/03/25 History ferrous sulfate 325 mg (65 mg 325 mg PO .qod Supplemen t 02/07/23 04/03/25 History iron) tablet (Iron (ferrous sulfate)) acetaminophen 500 mg capsule 1,000 mg PO ONCE 04/05/23 04/03/25 History xkmgeer-jqcbcmaljqyff-tglclmfm 250 2 tab PO Q4-6H PRN MIGRAINES 04/05/23 04/03/25 History mg-250 mg-65 mg tablet (Excedrin Migraine) chlorpheniramine maleate 4 mg 4 mg PO Q8H PRN ALLERGIE S 04/05/23 04/03/25 History tablet (Allergy Relief (chlorpheniramine)) coenzyme Q10 100 mg capsule 100 mg PO DAILY 04/05/23 0 04/03/25 History meloxicam 15 mg tablet 15 mg PO DAILY 05/17/2303/06 History methocarbamol 500 mg tablet 500 mg PO Q8H PRN muscle s pasm #30 08/22/24 04/03/25 Rx tabs oxycodone 5 mg tablet 5 mg PO Q6H PRN pain 3 days #12 12/29/24 04/03/25 Rx tabs New Prescriptions to Start Prescriptions: Allergies Allergy/AdvReac Type Severity Reaction Status Date / Time No Known Allergies Allergy Verified 04/03/25 13:18 Assessment and Plan *Assessment and plan (1) Degenerative disc disease: Status: Acute Category: Medical (2) Sacroiliitis: Status: Acute Category: Medical Code(s): M46.1 - Sacroiliitis, not elsewhere classified Plan Patient has had significant improvement and does not require any additional injection therapy at this time. I did also discuss with the patient due to her currently being on pain medication that that may also be helping her pain. Patient did have low blood pressure today and we did discuss that that could have been what caused her fall. We have discussed about checking it at home and making sure to make slow movements when going from a seated or lying down position as a precaution. Patient agrees with this plan of care. Patient will return to clinic in 1 month. I will increase her concentration of her cream and she was counseled to try this on her knees. Patient has been instructed to contact the clinic with any concerns before the next appointment. Dr. Alonzo has reviewed this note and agrees with this plan of care. This note was dictated using voice recognition software and make contain errors or omissions. All injections are used with Lidocaine, Bupivacaine and dexamethasone. Occasionally urine drug screen is needed to verify patient's compliance with our office pain contract. This is ordered based off specific treatments related to chronic pain with the potential to abuse certain medications.
[2025-04-03 14:53] VITALS: BP 109/64; BP 91/65; PULSE 98; RESP 14; O2SAT 96; BMI 30.2
== END 2025-04-03 23:59 | disposition home or self-care (01) ==
PROVIDERS: PCP Family Medicine; Visit Provider Nurse Practitioner Family
DX: M46.1 Sacroiliitis, not elsewhere classified (principal)
CPT/HCPCS: 99212; G0463

== ENCOUNTER 2025-04-10 12:17 | Outpatient (CLI) | payer MEDICARE, SELFPAY ==
--- OUTSIDE RECORDS SUMMARY | 2025-02-16 18:44 | XMS_ITS | Encounter Summary ---
[facility] Address [address] [place] [address] Care Team Providers Care Battery Charger Name Role Phone Placido Mercado MD Primary Care Provider [phone] Reason for Referral * Pain Management (Routine) - Authorized Specialty Diagnoses / Procedures Referred By Ryan garcia Referred To Contact Pain Medicine Diagnoses Chronic radicular lumbar pain Procedures [place] OFFICE/OUTPATIENT NEW MODERATE MDM 45 MINUTES Alexi Mattson MD [address] [place] [id number] Phone: tel: fax: Matteo Curran MD [address] [address] Phone: tel: fax: Referral ID Status Reason Start Date Expiration Date Visits Requested Visits Authorized [id number] Authorized Specialty Services Required 02/16/2025 05/18/2026 1 1 Reason for Visit * Reason Comments Back Pain Encounter Details Date Type Department Care Team (Late st Contact Info) Description 02/16/2025 6:44 PM EDT - 02/17/2025 12:04 AM EDT Emergency [facility] EMERGENCY DEPARTMENT [address] [phone] Alexi Mattson MD [address] [place] [address] [address] [place] [address] Chronic radicular lumbar pain (Primary Dx) Discharge Disposition: Home or Self Care Social History Tobacco Use Types Packs/Day Years Used Date Smoking Tobacco: Former Smokeless Tobacco: Never Alcohol Use Standard Drinks/Week Comments Never 0 (1 standard drink = 0.6 oz pur e alcohol) [facility] Utilities Answer Date Recorded In the past 12 months has th e [employer], gas, oil, or water [employer] threatened to shut off services in your [...] care, and heating? Not very hard 02/04/2025 [facility] [place] of Occupat ional Health - Occupational Stress [...] Feels Unsafe at Home or Work/School no 02/16/2025 Feels Threatened by Someone no 02/02 Does Anyone Try to Keep You From Having Contact with Others or Doing Things Outside Your Home? no 02/16/2025 Physical Signs of Abuse Present no 02/16/2025 Housing Stability Answer Date Recorded Current Living [...] GED or equivalent No 02/04/2025 Preferred Language Jamaican 02/04/2025 PHQ-2 Answer Date Recorded Patient Health Questionnaire-2 Score 0 02/04/2025 Comments No Sex and Gender Information Value Date Recorded Sex Assigned at Not on file Legal Sex Female 2:30 PM EDT Gender Identity Not on file Sexual Orientation Not on file documented as of this encounter Last Filed Vital Signs Vital Sign Reading Time Taken Comments Blood Pressure 129/74 02/16/2025 10:57 PM EDT Pulse 99 02/16/2025 10:57 PM EDT Temperature 36.7 C (98.1 F) 02/16/2025 6:48 PM EDT Respiratory Rate 17 02/16/2025 10:5 7 PM EDT Oxygen Saturation 99% 02/16/2025 10: 57 PM EDT Inhaled Oxygen Concentration - - Weight 92.9 kg (204 lb 11.2 oz) 02/16/2025 6:48 PM EDT Height 160 cm (5' 3 ) 02/16/2025 6:48 PM EDT Body Mass Index 36.26 02/16/2025 6:48 PM EDT documented in this encounter Functional Status * Calculated C-SSRS Risk Score (Lifetime/Recent) Answer Date of Assessment Author No Risk Indicated 02/16/2025 6:50 PM EDT Ankita Graham RN * [place] Suicide Severity Rating Scale (Screener/Recent Self-Report) Question Answer Date of Assessment Author 1. Wish to be (Past 1 Month) No 025 6:50 PM EDT Ankita Graham RN 2. Non-Specific Active Suici delfino Thoughts (Past 1 Month) No 02/16/2025 6:50 PM EDT Randolph Graham RN 6. Suicidal Behavior (Lifetime) No 6:50 PM EDT Ankita Graham RN documented as of this encounter Discharge Instructions * Attachments The following attachments cannot be sent through Care Everywhere. * Chronic Pain Adult (Jamaican) documented in this encounter Medications at Time [...] if polyethylene glycol is ineffective). 02/07/2025 Coenzyme P77-Bwpfzhe E (QUNOL ULTRA COQ10 PO) Take 100 [...] Take 2 tablets by mouth Every Morning. gabapentin (NEURONTIN) 100 MG capsuleIndication s:Chronic radicular lumbar pain Take 1 capsule by mouth 3 (Three) Times a Day for 3 days. 9 capsule 02/17/2025 documented as of this encounter Miscellaneous Notes * [facility] Provider Note - Alexi Mattson MD - 02/16/2025 7:57 PM EDT Subjective History of Present Illness: Patient arrives to emergency department with back pain. She has had this back pain since she was [facility] following a procedure with Dr. Peterson. Pain originates from her right buttocks and radiates down her leg. It occurs intermittently. Usually will dissipate on its own. Today it developed and has not subsided. She was given 80 mg of ketamine IM by EMS on her way to the hospital from her subacute rehab facility-[facility]. She states the pain improved but she did not enjoy the experience. She feels like she is not on planet earth. According to her discharge summary dated 02/07/2025 the patient had a L4-L5 fusion 3 years ago. She fell approximately 7 months ago which caused lower back pain and leg pain. Outpatient management didnot improve her symptoms. She underwent a revision decompression of L4-L5 -full details are available in the discharge summary or operative note.. She was recommended to go to inpatient rehab due to her slow postoperative progression. She has not had any additional falls. Pain is unchanged from prior experience in terms of intensityand development. Nurses Notes reviewed and agree, including vitals, allergies, social history and prior medical history. REVIEW OF SYSTEMS: All systems reviewed and not pertinent unless noted. Past Medical History: Diagnosis Date Colitis Elevated cholesterol GERD (gastroesophageal reflux disease) History of transfusion [facility], no reaction Hyperlipidemia Hypertension Allergies: Patient has no known allergies. Past Surgical History: Procedure Laterality Date BREAST BIOPSY Right multiple COLONOSCOPY HEMORRHOIDECTOMY LUMBAR DISCECTOMY FUSION INSTRUMENTATION N/A 05/16/2022 Procedure: LUMBAR DECOMPRESSION WITH FUSION INSTRUMENTATION WITH PEDICLE SCREWS, CAGE AND ALLOGRAFTL4-5; Surgeon: Vini Peterson MD; Location: [facility] OR; Service: Orthopedic Spine; Laterality: N/A; LUMBAR DISCECTOMY FUSION INSTRUMENTATION N/A 02/03/2025 Procedure: REVISION DECOMPRESSION WITH REVISED FUSION WITH PEDICLE SCREWS WITH CEMENT AUGMENTATION,AND HARDWARE REVISION L4-5; Surgeon: Vini Peterson MD; Location: [facility] OR; Service: Orthopedic Spine; Laterality: N/A; MASTOIDECTOMY Left x3 TUBAL ABDOMINAL LIGATION Social History Socioeconomic History Marital status: Single Tobacco Use Smoking status: Former Smokeless tobacco: Never Vaping Use Vaping status: Never Used Substance and Sexual Activity Alcohol use: Never Drug use: Never Sexual activity: Defer No family history on file. Objective Physical Exam: BP 140/82 (BP Location: Left arm, Patient Position: Lying) Pulse 107 Temp 98.1 ??F (36.7 ??C) (Oral) Resp 25 Ht 160 cm (63 ) Wt 92.9 kg (204 lb 11.2 oz) SpO2 100% BMI 36.26 kg/m?? Physical Exam Primary Survey Airway: Patent and protected Breathing: Symmetric bilaterally Circulation: Mentating well, responsive Constitutional: Nontoxic appearance. Psychological: No abnormalities of mood affect. Head: Atraumatic Eyes: Conjunctiva are non-injected. no scleral icterus. ENT: No obvious congestion or obstruction noted Neck: No obvious deformity. ROM appears preserved Chest: No deformity noted. No paradoxical breathing noted Respiratory: Respiratory effort was normal - no use of accessory respiratory muscles noted. There is no stridor. Cardiovascular: Perfusion appears preserved - mentating well RRR no murmurs Gastrointestinal: Abdomen nondistended. Genitourinary: Not examined Lymphatic: Not examined Back: Tender palpation of the right buttock, nontender to midline Musculoskeletal: Musculoskeletal system is grossly intact. There is no obvious deformity. Neurological: Face: No Asymmetry. Gross motor movement is intact in all 4 extremities. Patient exhibits normal speech. Sensation intact bilateral Skin: No Pallor no obvious bruising. No obvious rash. ED Course: Lab Results (last 24 hours) No results found for the last 24 hours. No radiology results from the last 24 hrs No orders to display Procedures MDM Initial impression of presenting illness : Vital signs reviewed -nonactionable. This is a patient with chronic radicular lumbar pain. She is currently mildly dissociated from ketamine but is emergingappropriately.. My initial pre-test probability for an emergent process is low. Based on the patient's presentationhighly suspect this is a chronic issue. Patient is in agreement. She has had no falls. No new symptoms. No additional red flag symptoms to suggest a infection, spinal cord compression etc. she needs a ggressive pain control. Initial treatment of presenting symptoms: Started pain treatment with intravenous hydromorphone. Will reassess and add as needed.. any diagnostic and therapeutic plan was ordered and interpreted by Fartun Mattson MD with emphasis on identifying and treating emergent/urgent morbid conditions likely associated with the differential diagnosis with this type of presentation. ED Course as of 02/16/252156 Sun Feb 16, [id number] Patient has a known partial left foot drop chronically [GAYLA] 2151 Pain improved with treatment in ED. Overall I think this is a chronic pain issue. She takes 10mg oxycodone already. She also takes 300mg gabapentin BID. I think she would benefit from increased dose and frequency for her pain. She would also benefit from pain management consultation outpatient. Discussed with patient and son at bedside. They are in agreement. Without new or red flag symptoms, I do not think emergent diagnostic imaging is warranted at this time. Will dc [GAYLA] ED Course User Index [GAYLA] Alexi Mattson MD Medications sodium chloride 0.9 % flush 10 mL (has no administration in time range) ondansetron (ZOFRAN) injection 4 mg (4 mg Intravenous Given 02/16/251942) HYDROmorphone (DILAUDID) injection 1 mg (1 mg Intravenous Given 02/16/251948) HEART SCORE No data recorded ----- ED Disposition None Final diagnoses: None Your Follow-Up Providers Follow-up information has not been specified. Contact information for after-discharge care Follow-up information has not been specified. Your medication list ASK your doctor about these medications Instructions Last Dose Given Next Dose Due acetaminophen 650 MG 8 hr tablet Commonly known as: TYLENOL Take 2 tablets by mouth Every Morning. acetaminophen 500 MG tablet Commonly known as: TYLENOL Take 2 tablets by mouth Every Night. bisacodyl 5 MG EC tablet Commonly known as: DULCOLAX Take 1 tablet by mouth Daily As Needed for Constipation (Use if polyethylene glycol is ineffective). bisacodyl 10 MG suppository Commonly known as: DULCOLAX Insert 1 suppository into the rectum Daily As Needed for Constipation (Use if bisacodyl oral is ineffective). cyclobenzaprine 10 MG tablet Commonly known as: FLEXERIL Take 1 tablet by mouth 3 (Three) Times a Day As Needed for Muscle Spasms. diphenhydrAMINE 25 mg capsule Commonly known as: BENADRYL Take 1 capsule by mouth At Night As Needed for Sleep. gabapentin 300 MG capsule Commonly known as: NEURONTIN Take 1 capsule by mouth 2 (Two) Times a Day. lisinopril-hydrochlorothiazide 20-12.5 MG per tablet Commonly known as: PRINZIDE,ZESTORETIC Take 1 tablet by mouth Daily. omeprazole 40 MG capsule Commonly known as: priLOSEC Take 1 capsule by mouth 2 (Two) Times a Day. polyethylene glycol 17 g packet Commonly known as: MIRALAX Take 17 g by mouth Daily As Needed (Use if senna-docusate is ineffective). pravastatin 40 MG tablet Commonly known as: PRAVACHOL Take 1 tablet by mouth Daily. QUNOL ULTRA COQ10 PO Take 100 mg by mouth Daily. sennosides-docusate 8.6-50 MG per tablet Commonly known as: PERICOLACE Take 2 tablets by mouth 2 (Two) Times a Day As Needed for Constipation. Turmeric 500 MG capsule Take 1 capsule by mouth Daily. documented in this encounter Plan of Treatment Scheduled Referrals Name Type Priority Associated Diagnoses Order Schedule Ambulatory Referral to Pain Management Outpatient Referral Routine Chronic radicular lumbar pain Ordered: 02/16/2025 documented as of this encounter Goals Goal Patient Goal Type Associated Problems Recent Progress Patient-Stated? Author Autogenerat ed Goal Care Plan Autogenerated Problem No Shan Huff documented as of this encounter Procedures Procedure Name Priority Date/Time Associated Diagnosis Comments SCANNED - TELEMETRY 02/16/2025 7:07 PM EDT SCANNED - TELEMETRY 02/16/2025 6:56 PM EDT documented in this encounter Results * Telemetry Scan (02/16/2025 7:07 PM EDT) [facility] New Onbase ECG ORDERABLES Final Result * Telemetry Scan (02/16/2025 6:56 PM EDT) [facility] New Onbase ECG ORDERABLES Final Result documented in this encounter Visit Diagnoses Diagnosis Chronic radicular lumbar pain- Primary documented in this encounter Administered Medications Inactive Administered Medications - up to 3 most recent administrations Medication Order MAR Action Action Date Dose Rate Site gabapentin (NEURONTIN) capsule 300 mg 300 mg, Oral, Once, On 02/16/25 at 2115, For 1 dose, (JANY) Given 02/16/2025 9:08 PM EDT 300 mg HYDROmorphone (DILAUDID) injection 0.5 mg 0.5 mg, Intravenous, Once, On 02/16/25 at 2130, For 1 dose, Based on patient request - if ordered for moderate or severe pain, provider allows for administration of a medication prescribed for a lower pain scale. If given for pain, use the following pain scale: Mild Pain = Pain Score of 1-3, CPOT 1-2 Moderate Pain = Pain Score of 4-6, CPOT 3-4 Severe Pain = Pain Score of 7-10, CPOT 5-8 Given 02/16/2025 9:08 PM EDT 0.5 mg HYDROmorphone (DILAUDID) injection 1 mg 1 mg, Intravenous, Once, On 02/16/25 at 2000, For 1 dose, Based on patient request - if ordered for moderate or severe pain, provider allows for administration of a medication prescribed for a lower pain scale. (JANY) Caution: Look alike/sound alike drug alert If given for pain, use the following pain scale: Mild Pain = Pain Score of 1-3, CPOT 1-2 Moderate Pain = Pain Score of 4-6, CPOT 3-4 Severe Pain = Pain Score of 7-10, CPOT 5-8 Given 02/16/2025 7:49 PM EDT 1 mg ondansetron (ZOFRAN) injection 4 mg 4 mg, Intravenous, Once, On 02/16/25 at 2000, For 1 dose, If multiple N/V medications ordered, use in the following order: Ondansetron, Prochlorperazine, Promethazine. Use PO unless patient refuses or patient unable to swallow. Given 02/16/2025 7:43 PM EDT 4 mg sodium chloride 0.9 % flush 10 mL 10 mL, Intravenous, As Needed, Line Care, Starting on 02/16/25 at 1932 documented in this encounter Active and Recently Administered Medications Times are shown in EDT. Scheduled Medication Order 02/15/2025 02/16/2025 02/17/2025 gabapentin (NEURONTIN) capsule 300 mg (COMPLETED) 300 mg, Oral, Once, On 02/16/25 at 2115, For 1 dose, (JANY) 2107 (Given - Provider: Manuel Barriga Jr., RN) HYDROmorphone (DILAUDID) injection 0.5 mg (COMPLETED) 0.5 mg, Intravenous, Once, On 02/16/25 at 2130, For 1 dose, Based on patient request - if ordered for moderate or severe pain, provider allows for administration of a medication prescribed for a lower pain scale. If given for pain, use the following pain scale: Mild Pain = Pain Score of 1-3, CPOT 1-2 Moderate Pain = Pain Score of 4-6, CPOT 3-4 Severe Pain = Pain Score of 7-10, CPOT 5-8 2107 (Given - Provider: Manuel Barriga Jr., RN) HYDROmorphone (DILAUDID) injection 1 mg (COMPLETED) 1 mg, Intravenous, Once, On 02/16/25 at 2000, For 1 dose, Based on patient request - if ordered for moderate or severe pain, provider allows for administration of a medication prescribed for a lower pain scale. (JANY) Caution: Look alike/sound alike drug alert If given for pain, use the following pain scale: Mild Pain = Pain Score of 1-3, CPOT 1-2 Moderate Pain = Pain Score of 4-6, CPOT 3-4 Severe Pain = Pain Score of 7-10, CPOT 5-8 1948 (Given - Provider: Manuel Barriga Jr., RN - Comment: medication syringe tossed to sharp container and not scanned.) ondansetron (ZOFRAN) injection 4 mg (COMPLETED) 4 mg, Intravenous, Once, On 02/16/25 at 2000, For 1 dose, If multiple N/V medications ordered, use in the following order: Ondansetron, Prochlorperazine, Promethazine. Use PO unless patient refuses or patient unable to swallow. 1942 (Given - Provider: Manuel Barriga Jr., RN) PRN Medication Order 02/15/2025 02/16/2025 02/17/2025 sodium chloride 0.9 % flush 10 mL(Linked Group 1) 10 mL, Intravenous, As Needed, Line Care, Starting on 02/16/25 at 1932 Linked Groups Order Group 1: Insert Peripheral IV (CANCELED) STAT, Once, On 02/16/25 at 1933, For 1 occurrence And sodium chloride 0.9 % flush 10 mLJump to med 10 mL, Intravenous, As Needed, Line Care, Starting on 02/16/25 at 1932 documented in this encounter Additional Health Concerns Active Problems Noted Date Diagnosed Date Autogenerated Problem 03/06/2025 documented as of this encounter Care Teams Battery Charger Relationship Specialty Start Date End Date Placido Mercado MD [address] [place] [address] PCP - General Family Medicine 01/29/25 documented as of this encounter
--- OUTSIDE RECORDS SUMMARY | 2025-04-10 12:20 | XMS_ITS | Clinical Summary ---
Author Organization [facility] Address [address] [place] [address] Care Team Providers Care Motor Vehicle Salesperson Name Role Phone Placido Mercado MD Primary Care Provider [phone] Allergies No known active allergies Medications lisinopril-hydr [...] 1 capsule by mouth Daily. Active Coenzyme R14-Rntwdra E (QUNOL ULTRA COQ10 PO) Take 100 [...] 02/17/2025 12:04 AM EDT Emergency [facility] [address] [address] Alexi Mattson MD Chronic radicular lumbar pain (Primary Dx) Discharge Disposition: Home or Self Care 02/16/2025 Travel 02/07/2025 Readmission Management [facility] [address] [place] [address] Lauren Etienne RN 02/03/2025 7:37 AM EDT Anesthesia Event [facility] OR [address] [place] [address] Vini Schwartz MD 02/03/2025 7:15 AM EDT - 02/03/2025 12:04 PM EDT Surgery [facility] OR [address] [place] [address] Vini Peterson MD REVISION DECOMPRESSION WITH REVISED FUSION WITH PEDICLE SCREWS WITH CEMENT AUGMENTATION, AND HARDWARE REVISION L4-5 [74560 (CPT )] 02/03/2025 5:14 AM EDT - 02/07/2025 3:28 PM EDT Hospital Encounter [facility] [address]G [address] [place] [address] Vini Peterson MD S/P lumbar spinal fusion (revision decompression L4-5, posterior lateral fusion L4-5) (Primary Dx) Discharge Disposition: [facility]pc Facility (DC - External) 02/03/2025 Travel 01/29/2025 9:30 AM EDT Pre-Admission Testing [facility] PREADMISSION T [address] [place] [address] 01/29/2025 Travel from Last 3 Months Immunizations [...] 0.6 oz pur e alcohol) [facility] Utilities Answer Date Recorded In the past 12 months has th e electric, gas, oil, or water [employer] threatened to shut off services in your [...] care, and heating? Not very hard 02/04/2025 [facility] of Occupat ional Health - Occupational Stress [...] GED or equivalent No 02/04/2025 Preferred Language Thai 02/04/2025 PHQ-2 Answer Date Recorded Patient Health [...] [employer] Implanted Type Area Program Analyst Device Identifier Shelf Expiration Date Model / Serial / Lot Hemost Abs Surgifoam Sz100 8x12 10mm - [id number] Implanted:Qt y: 1 on 05/16/2022 by Vini Peterson MD at [facility] Implant N/A: Spine Lumbar ETHICON DIV OF J AND J 1974 / / Kt Seal Hemos Abs Floseal Matrx Fast/Prep 10ml - [id number] Implanted:Qt y: 1 on 05/16/2022 by Vini Peterson MD at [facility] Implant N/A: Spine Lumbar SORIA [employer] [id number] 02/06/2024 [id number] / / [id number] Allogrft Bone Vivigen Celluar Matrx Formable 5cc - [id number] Implanted:Qt y: 1 on 05/16/2022 by Vini Peterson MD at [facility] Implant N/A: Spine Lumbar [facility] 03/14/2023 [id number] / / Spalavinia Tpal Peek [id number] - [id number] Implanted:Qt y: 1 on 05/16/2022 by Vini Peterson MD at [facility] Implant N/A: Spine Lumbar DEPUY SPINE [id number] / / Scrw Viper [address] - [id number] Implanted:Qt y: 4 on 05/16/2022 by Vini Peterson MD at [facility] Implant N/A: Spine Lumbar DEPUY SPINE [id number] / / Enrike Prebnt Spine Expedium Ti 5.5x40mm - [id number] Implanted:Qt y: 2 on 05/16/2022 by Vini Peterson MD at [facility] Implant N/A: Spine Lumbar DEPUY SPINE [id number] / / Scrw Expedium Pa Ti 6x50mm - [id number] Implanted:Qt y: 2 on 05/16/2022 by Vini Peterson MD at [facility] Implant N/A: Spine Lumbar DEPUY SPINE [id number] / / Scrw Expedium Pa Ti 6x45mm - [id number] Implanted:Qt y: 2 on 05/16/2022 by Vini Peterson MD at [facility] Implant N/A: Spine Lumbar DEPUY SPINE [id number] / / Hemost Abs Surgifoam Sz100 8x12 10mm - [id number] Implanted:Qt y: 2 on 02/03/2025 by Vini Peterson MD at [facility] Implant N/A: Spine Lumbar ETHICON DIV OF J AND J [id number] 08/05/2028 1974 / / [id number] Description:Given to the bret arellano Wax Bone Hemo Lukens Sharpoint 2.5gm Wht - [id number] Implanted:Qt y: 1 on 02/03/2025 by Vini Peterson MD at [facility] Implant N/A: Spine Lumbar [employer] JAIDA [id number] 02/06/2029 901 / / [id number] Description:Given to the bret arellano Allogrft Bone Vivigen Celluar Matrx Formable 5cc - [id number] - [id number] Implanted:Qt y: 1 on 02/03/2025 by Vini Peterson MD at [facility] Implant N/A: Spine Lumbar [facility] [id number] 01/10/2026 [id number] / [id number] / Scrw Gurvinder Viper Fen Pa Ti 7x50mm - [id number] Implanted:Qt y: 2 on 02/03/2025 by Vini Peterson MD at [facility] Implant N/A: Spine Lumbar DEPUY SPINE [id number] / / Scrw Gurvinder Viper Fen Pa Ti 7x45mm - [id number] Implanted:Qt y: 2 on 02/03/2025 by Vini Peterson MD at [facility] Implant N/A: Spine Lumbar DEPUY SPINE [id number] / / Enrike Prebnt Spine Expedium Ti 5.5x40mm - [id number] Implanted:Qt y: 2 on 02/03/2025 by Vini Peterson MD at [facility] Implant N/A: Spine Lumbar DEPUY SPINE [id number] / / Scrw Viper Inn[address] - [id number] Implanted:Qt y: 4 on 02/03/2025 by Vini Peterson MD at [facility] Implant N/A: Spine Lumbar DEPUY SPINE [id number] / / Cmt Bone Confidence/P ls Ds Kt 11cc - [id number] Implanted:Qt y: 1 on 02/03/2025 by Vini Peterson MD at [facility] Implant N/A: Spine Lumbar DEPUY SPINE [id number] / / Kt Seal Hemos Abs Floseal Matrx Fast/Prep 10ml - [id number] Implanted:Qt y: 1 on 02/03/2025 by Vini Peterson MD at [facility] Implant N/A: Spine Lumbar [facility] [id number] 07/30/2026 [id number] / / [id number] Description:Given to the bret lee field Procedures [...] ANESTHESIA INTUBATION Routine 02/03/2025 8:05 AM EDT [place] ARTHRODESIS COMBINED TQ 1NTRSPC LUMBAR 02/03/2025 7:22 AM EDT Special Needs DEPUY WITH CEMENT AUGMENTATION, ADMISSIONS OFFICER, RK TABLE, CELL SAVER (CONFIRMED WITH MATILDE [...] of2 resultswithin the time period is included. [facility] ECG ORDERABLES Final Result * Potassium (02/05/2025 6:59 AM EDT) Only the most recent of2 resultswithin the time period is included. Potassium 3.9 3.5 - 5.2 mmol/L 02/05/2025 8:25 AM EDT [facility] Blood Venipuncture / Unknown 02/05/2025 6:59 AM EDT 02/05/2025 7:51 AM EDT Pavithra Oakes MD LAB BLOOD ORDERABLES Final Result Performing Organization Address [facility] Co de Phone Number [facility]
[address] [place] [address], * (ABNORMAL) Hemoglobin & Hematocrit, Blood (02/04/2025 6:15 AM EDT) Hemoglobin 9.7(L) 12.0 - 15.9 g/dL 02/04/2025 6:37 AM EDT [facility] Hematocrit 31.1(L) 34.0 - 46.6 % 02/04/2025 6:37 AM EDT [facility] Blood Venipuncture / Unknown 02/04/2025 6:15 AM EDT 02/04/2025 6:33 AM EDT Vini Peterson MD LAB BLOOD ORDERABLES Final Res ult Performing Organization Address [facility] Co de Phone Number [facility]
[address] [place] [address], * (ABNORMAL) Basic Metabolic Panel (02/04/2025 6:15 AM EDT) Glucose 101(H) 65 - 99 mg/dL 02/04/2025 7:01 AM EDT [facility] BUN 11.2 8.0 - 23.0 mg/dL 02/04/2025 7:01 AM EDT [facility] Creatinine 0.87 0.57 - 1.00 mg/dL 02/04/2025 7:01 AM EDT [facility] Sodium 138 136 - 145 mmol/L 02/04/2025 7:01 AM EDT [facility] Potassium 5.4(H) 3.5 - 5.2 mmol/L 02/04/2025 7:01 AM EDT [facility] Chloride 105 98 - 107 mmol/L 02/04/2025 7:01 AM EDT [facility] CO2 27.0 22.0 - 29.0 mmol/L 02/04/2025 7:01 AM EDT [facility] Calcium 9.5 8.6 - 10.5 mg/dL 02/04/2025 7:01 AM EDT [facility] BUN/Creatinine Ratio 12.9 7.0 - 25.0 02/04/2025 7:01 AM EDT [facility] Anion Gap 6.0 5.0 - 15.0 mmol/L 02/04/2025 7:01 AM EDT [facility] eGFR 68.7 >60.0 mL/min/1.7 3 02/04/2025 7:01 AM EDT [facility] Blood Venipuncture / Unknown 02/04/2025 6:15 AM EDT 02/04/2025 6:34 AM EDT Narrative [facility] - 02/04/2025 7:01 AM EDT GFR [...] LAB BLOOD ORDERABLES Final Result [facility]
[address] [place] [address], * FL C Arm During Surgery (02/03/2025 [...] and Staff Patient location during procedure: OR [facility]OB[facility] WINDER/CAA: David Mcmillan CRNA Indications and Patient Condition [...] A 02/03/2025 7:43 AM EDT [facility] RH type Positive 02/03/2025 7:43 AM EDT [facility] Antibody Screen Negative 02/03/2025 7:43 AM EDT [facility] T&S Expiration Date 02/06/2025 11:59:59 PM 02/03/2025 7:43 AM EDT [facility] Blood Line / Unknown 02/03/2025 6: 46 AM EDT 02/03/2025 6:52 AM EDT Vini Peterson MD BLOOD BANK TEST ORDERABLES Sanchez antonina Result - Final Performing Organization Address City/[facility]/ZIP Co de Phone Number [facility]
[address] [place] [address], * ECG Scan (02/03/2025) [facility] ECG ORDERABLES Final Result * IMAGING SCANNED (02/03/2025) Anatomical Region Laterality Modality Radiographic Carmella ging [facility] IMG DIAGNOSTIC IMAGING ORDERA BLES Final Result * LABS SCANNED (02/03/2025) [facility] LAB BLOOD ORDERABLES Final Re sult * (ABNORMAL) Protime-INR (01/29/2025 10:14 AM EDT) Protime 12.2 12.2 - 15.3 Seconds 01/29/2025 10:38 AM EDT [facility] INR 0.86(L) 0.89 - 1.12 01/29/2025 10:38 AM EDT [facility] Blood Venipuncture / Unknown 01/29/2025 10:14 AM EDT 01/29/2025 10:21 AM EDT Vini Peterson MD LAB BLOOD ORDERABLES Final Res ult Performing Organization Address City/[facility]/ZIP Co de Phone Number [facility]
[address] [place] [address], * (ABNORMAL) CBC (No Diff) (01/29/2025 9:58 AM EDT) WBC 4.48 3.40 - 10.80 10*3/mm3 01/29/2025 11:24 AM EDT [facility] RBC 3.91 3.77 - 5.28 10*6/mm3 01/29/2025 11:24 AM EDT [facility] Hemoglobin 11.0(L) 12.0 - 15.9 g/dL 01/29/2025 11:24 AM EDT [facility] Hematocrit 36.0 34.0 - 46.6 % 01/29/2025 11:24 AM EDT [facility] MCV 92.1 79.0 - 97.0 fL 01/29/2025 11:24 AM EDT [facility] MCH 28.1 26.6 - 33.0 pg 01/29/2025 11:24 AM EDT [facility] MCHC 30.6(L) 31.5 - 35.7 g/dL 01/29/2025 11:24 AM EDT [facility] RDW 14.1 12.3 - 15.4 % 01/29/2025 11:24 AM EDT [facility] RDW-SD 47.5 37.0 - 54.0 fl 01/29/2025 11:24 AM EDT [facility] MPV 9.2 6.0 - 12.0 fL 01/29/2025 11:24 AM EDT [facility] Platelets 313 140 - 450 10*3/mm3 01/29/2025 11:24 AM EDT [facility] Blood Venipuncture / Unknown 01/29/2025 9:58 AM EDT 01/29/2025 10:21 AM EDT us Vini Peetrson MD LAB BLOOD ORDERABLES Final Res ult [facility]
[address] [place] [address], * MRSA Screen Culture (Outpatient) - Swab, Nares (01/29/2025 9:58 AM EDT) Pathologist [facility] MRSA Screen Cx No Methicillin Resistant Staphylococcus aureus isolated NIKKIE 01/30/2025 10:31 AM EDT [facility] Swab Structure of anterior naris / Unknown Collection / Unknown 01/29/2025 9:58 AM EDT 01/29/2025 10:28 AM EDT [facility] - 01/30/2025 10:31 AM EDT The negative predictive value of this diagnostic test is high and should only be used to consider de-escalating anti-MRSA therapy. A positive result may indicate colonization with MRSA and must be correlated clinically. Vini Peterson MD MICROBIOLOGY - GENERAL ORDERAB LES Final Result Performing Organization Address [facility]/ZIP Co de Phone Number [facility]
[address] [place] [address], [place] [phone] * Hemoglobin A1c (01/29/2025 9:58 AM EDT) Pathologist [facility] Hemoglobin A1C 5.60 4.80 - 5.60 % 01/29/2025 10:50 AM EDT [facility] Blood Venipuncture / Unknown 01/29/2025 9:58 AM EDT 01/29/2025 10:21 AM EDT [facility] - 01/29/2025 10:50 AM EDT Hemoglobin A1C Ranges: Increased Risk for Diabetes 5.7% to 6.4% Diabetes >= 6.5% Diabetic Goal < 7.0% Vini Peterson MD LAB BLOOD ORDERABLES Final Res ult [facility]
[address] [place] [address], [place] [phone] from Last 3 Months Additional Health Concerns Active Problems Noted Date Diagnosed Date Autogenerated Problem 03/06/2025 Insurance [id number] MEDICARE ADVANTAGE [facility] P[facility] Advance Directives Documents on File Type Date Recorded Patient Welder Setter Resistance Machine Expl anation LIVING WILL - SCAN 01/29/2025 [...] Release to patient: Routine Release Care Teams Motor Vehicle Salesperson Relationship Specialty Start Date End Date Placido Mercado MD [address] [place] [address] PCP - General Family Medicine 01/29/25
--- OUTSIDE RECORDS SUMMARY | 2025-04-10 12:20 | XMS_ITS | Clinical Summary ---
Author Organization [facility] Address [address] [place] [address] Care Team Providers Care Jewelry Designer Name Role Phone Placido Mercado MD Primary Care Provider [phone] Allergies No known active allergies Medications gabapentin [...] if needed for headaches. Active HYDROcodone-edith taminophen ([place]) 7.5-325 MG tablet 1 tablet (7.5 mg [...] place to sleep or slept in a mcc (including now)? No 10/16/2023 Utilities Answer Date [...] r (1 - 1-dose 75+ series) 11/08/2022 [id number] Vaccine ( - season) 2024 07/14/2021, 12/11/2020, [...] for anesthesia administered medications. Staff Staff Role Kritsine [facility] Endo Drafter Plumbing Jade Vale, SENIOR DATA SCIENTIST Sara Sheaprd, RN Endo Nurse Dipika Najera, ANN Endo [...] of bowel preparation was evaluated using the Raymond Bowel Preparation Scale with scores of: left [...] IgM Negative Negative 10/15/2023 6:39 AM EST [facility] Hepatitis B Core Antibody IgM Negative Negative 10/15/2023 6:39 AM EST [facility] Blood Venous blood specimen / Unknown Venipuncture / Unknown 10/15/2023 12:57 AM EST 10/15/2023 1:14 AM EST us Patricia Barkley APRN, YADI LAB BLOOD ORDERABLES Liliya l Result Performing Organization Address [facility] Co de Phone Number [facility] [address] [place] [address] * (ABNORMAL) Hemoglobin A1c (10/13/2023 11:49 PM EST) Hemoglobin A1c 5.8(H) <5.7 % 10/14/2023 3:36 AM EST [facility] Blood Venous blood specimen / [...] Adults <6.0% Children and Adolescents <7.5% Source: [place] [employer]. Standards of medical care in diabetes,2017. Diabetes Care.2017:40 (suppl 1):S1-S135. HbA1c assay performed by an ion-exchange chromatography method that is certified traceable to the DCCT. us Hesham Whiteside MD LAB BLOOD ORDERABLES Final Re sult [facility] [address] [place] [address] from Last 3 Months or Most Recently Relevant to Health Maintenance Insurance [employer] MEDICARE Advance Directives * Full Code (Latest Code Status on File) Date Activated Date Inactivated Comments 10/18/2023 4:44 PM 10/23/2023 5:27 PM Question Answer Comments Patient has decision-making capacity? Yes Care Teams Jewelry Designer Relationship Specialty Start Date End Date Placido Mercado MD [facility] [place] [employer] [place] [address] PCP - General 10/16/23
--- OUTSIDE RECORDS SUMMARY | 2025-04-10 12:20 | XMS_ITS | Encounter Summary ---
Author Organization Healthcare Address [address] [place] [address] Care Team Providers Care Isotope Hydrologist Name Role Phone Placido Mercado MD Primary Care Provider [phone] Encounter Details Date Type Department Care Team (Late st Contact Info) Description 10/16/2023 Lab Requisition [facility] [address] [place] [address] Jonas Tony MD [address] [facility] [address] [place] [address] Encounter for general adult medical [...] place to sleep or slept in a jail (including now)? No 10/16/2023 Utilities Answer Date [...] ERAL ORDERABLES Final Result Performing Organization Address City/State/[facility] Co de Phone Number [facility]ALTHCARE [facility] [address] [place] [address] documented in this encounter Visit Diagnoses Diagnosis Encounter for general adult medical examination without abnormal findings documented in this encounter Additional Health Concerns Assessment Noted Time A Body Mass Index follow-up plan has been documented for the patient 10/23/2023 2:41 PM EST documented as of this encounter Care Teams Isotope Hydrologist Relationship Specialty Start Date End Date Placido Mercado MD [address] [place] [address] PCP - General 10/16/23 documented as of this encounter
--- OUTSIDE RECORDS SUMMARY | 2025-04-10 12:20 | XMS_ITS | Encounter Summary ---
Author Organization [facility] Address [address] [place] [address] Care Team Providers Care Insole Taper Name Role Phone Placido Mercado MD Primary Care Provider [phone] Encounter Details Date Type Department Care Team (Latest Contact Info) Description 02/16/2025 Travel Social History Tobacco Use Types Packs/Day Years Used Date Smoking Tobacco: Former Smokeless Tobacco: Never Alcohol Use Standard Drinks/Week Comments Never 0 (1 standard drink = 0.6 oz pur e alcohol) [facility] Utilities Answer Date Recorded In the past 12 months has [employer] electric, gas, oil, or water company threatened [...] care, and heating? Not very hard 02/04/2025 [facility] of Occupat ional Health - Occupational Stress [...] GED or equivalent No 02/04/2025 Preferred Language British 02/04/2025 PHQ-2 Answer Date Recorded Patient Health [...] 6:50 PM EDT Ankita Graham, ANN * [place] Suicide Severity Rating Scale (Screener/Recent Self-Report) Question [...] documented as of this encounter Care Teams Insole Taper Relationship Specialty Start Date End Date Placido Mercado MD [address] [place], [place] [address] PCP - General Family Medicine 01/29/25 documented as of this encounter
--- NOTE | 2025-04-10 12:21 | XR_ITS ---
FINAL REPORT CLINICAL HISTORY: right wrist fx COMPARISON: 03/28/2025 FINDINGS: RIGHT WRIST Three views demonstrate a cast in place. Transverse fracture of the distal radial metaphysis appears more impacted compared to the previous exam. There is intra-articular extension seen on the oblique view. There is also a small fracture through the base of the ulnar styloid. The soft tissues are unremarkable. IMPRESSION: Distal radial metaphysis fracture appears more impacted compared to the prior exam. Stable ulnar styloid fracture. Reviewed, Interpreted and Dictated by Zac Dhaliwal MD Transcribed by Sridevi Stinson Authenticated and [facility]
== END 2025-04-10 23:59 | disposition home or self-care (01) ==
LOC: RAD 12:18
PROVIDERS: PCP Family Medicine; Visit Provider Physician Assistant Surgical
DX: S52.501D Unspecified fracture of the lower end of right radius, subsequent encounter for closed fracture with routine healing (principal); S52.611D Displaced fracture of right ulna styloid process, subsequent encounter for closed fracture with routine healing; X58.XXXD Exposure to other specified factors, subsequent encounter
CPT/HCPCS: 73110

== ENCOUNTER 2025-05-01 12:40 | Outpatient (CLI) | payer MEDICARE, SELFPAY ==
--- NOTE | 2025-05-01 12:43 | XR_ITS ---
FINAL REPORT TECHNIQUE: 4 views right wrist CLINICAL HISTORY: right wrist fx fell and broke wrist on march 28 no surgery COMPARISON: 04/10/2025 FINDINGS: AP, oblique, and 2 lateral views of the right wrist were obtained. A cast is present which obscures detail. There has been interval healing of the previously seen fractures of the distal radius and ulnar styloid process. There is no new fracture or dislocation. Stable degenerative joint disease is present. The soft tissues are normal. IMPRESSION: Interval healing of the previously seen fractures of the distal radius and ulnar styloid process since the prior exam of 04/10/2025. Reviewed, Interpreted and Dictated by Carlotta Phelps MD Transcribed by Darleen Fuchs Authenticated and [facility]
--- OUTSIDE RECORDS SUMMARY | 2025-05-01 12:43 | XMS_ITS | Encounter Summary ---
Author Organization Healthcare Address [address] [place] [address] Care Team Providers Care First Line Production Supervisor Name Role Phone Placido Mercado MD Primary Care Provider [phone] Encounter Details Date Type Department Care Team (Late st Contact Info) Description 10/16/2023 Lab Requisition [facility] [address] [place] [address] Jonas Tony MD [address] [facility] [address] [place] [address] Encounter for general adult medical [...] place to sleep or slept in a prison (including now)? No 10/16/2023 Utilities Answer Date [...] 1 Month) No 024 8:00 PM Vivi Seu, RN 2. Non-Specific Active Suici delfino Thoughts [...] ORDERABLES Final Result Performing Organization Address City/State/[facility] Co de Phone Number HEALTHCARE [facility] [address] [place] [address] documented in this encounter Visit Diagnoses Diagnosis Encounter for general adult medical examination without abnormal findings documented in this encounter Additional Health Concerns Assessment Noted Time A Body Mass Index follow-up plan has been documented for the patient 10/23/2023 2:41 PM EST documented as of this encounter Care Teams First Line Production Supervisor Relationship Specialty Start Date End Date Placido Mercado MD [address] [place] [address] PCP - General 10/16/23 documented as of this encounter
--- OUTSIDE RECORDS SUMMARY | 2025-05-01 12:43 | XMS_ITS | Clinical Summary ---
Author Organization [facility] Address [address] [place] [address] Care Team Providers Care Film Projector Operator Name Role Phone Placido Mercado MD Primary Care Provider [phone] Allergies No known active allergies Medications gabapentin [...] if needed for headaches. Active HYDROcodone-edith taminophen ([place]) 7.5-325 MG tablet 1 tablet (7.5 mg [...] place to sleep or slept in a assisted (including now)? No 10/16/2023 Utilities Answer Date [...] r (1 - 1-dose 75+ series) 11/08/2022 [id number] Vaccine ( - season) 2024 07/14/2021, 12/11/2020, [...] medications. Staff Staff Role [facility] Diabetes Physician Jade Vale, SALES AND RETAIL MANAGEMENT RECRUITER Sara Shepard, RN Endo Nurse Dipika Najera, [...] of bowel preparation was evaluated using the [place] Bowel Preparation Scale with scores of: left [...] IgM Negative Negative 10/15/2023 6:39 AM EST [facility] Hepatitis B Core Antibody IgM Negative Negative 10/15/2023 6:39 AM EST [facility] Blood Venous blood specimen / Unknown Venipuncture / Unknown 10/15/2023 12:57 AM EST 10/15/2023 1:14 AM EST us Patricia Barkley APRN, YADI LAB BLOOD ORDERABLES Liliya l Result Performing Organization Address [facility] Co de Phone Number [facility] [address] [place] [address] * (ABNORMAL) Hemoglobin A1c (10/13/2023 11:49 PM EST) Hemoglobin A1c 5.8(H) <5.7 % 10/14/2023 3:36 AM EST [facility] Blood Venous blood specimen / Unknown [...] Adults <6.0% Children and Adolescents <7.5% Source: [place] Diabetes Association. Standards of medical care in diabetes,2017. Diabetes Care.2017:40 (suppl 1):S1-S135. HbA1c assay performed by an ion-exchange chromatography method that is certified traceable to the DCCT. us Hesham Whiteside MD LAB BLOOD ORDERABLES Final Re sult [facility] [address] [place] [address] from Last 3 Months or Most Recently Relevant to Health Maintenance Insurance [employer] MEDICARE Advance Directives * Full Code (Latest Code Status on File) Date Activated Date Inactivated Comments 10/18/2023 4:44 PM 10/23/2023 5:27 PM Question Answer Comments Patient has decision-making capacity? Yes Care Teams Film Projector Operator Relationship Specialty Start Date End Date Placido Mercado MD [facility] [place] [address] PCP - General 10/16/23
--- OUTSIDE RECORDS SUMMARY | 2025-05-01 12:43 | XMS_ITS | Clinical Summary ---
Author Organization [facility] Address [address] [place] [address] Care Team Providers Care Mail Opener Name Role Phone Placido Mercado MD Primary Care Provider [phone] Allergies No known active allergies Medications lisinopril-hydr [...] 1 capsule by mouth Daily. Active Coenzyme N36-Tzvdayd E (QUNOL ULTRA COQ10 PO) Take 100 [...] - 02/17/2025 12:04 AM EDT Emergency [facility] [address] [address] Alexi Mattson MD Chronic radicular lumbar pain (Primary Dx) Discharge Disposition: Home or Self Care 02/16/2025 Travel 02/07/2025 Readmission Management [facility] [address] [place] [address] Lauren Etienne RN 02/03/2025 7:37 AM EDT Anesthesia Event [facility] [address] [place] [address] Vini Schwartz MD 02/03/2025 7:15 AM EDT - 02/03/2025 12:04 PM EDT Surgery [facility] [address] [place] [address] Vini Peterson MD REVISION DECOMPRESSION WITH REVISED FUSION WITH PEDICLE SCREWS WITH CEMENT AUGMENTATION, AND HARDWARE REVISION L4-5 [38585 (CPT )] 02/03/2025 5:14 AM EDT - 02/07/2025 3:28 PM EDT Hospital Encounter [facility] 3G [address] [place] [address] Vini Peterson MD S/P lumbar spinal fusion (revision decompression L4-5, posterior lateral fusion L4-5) (Primary Dx) Discharge Disposition: Assisted Facility (DC - External) 02/03/2025 Travel 01/29/2025 9:30 AM EDT Pre-Admission Testing [facility] P[facility] T [address] [place] [address] 01/29/2025 Travel from Last 3 Months Immunizations [...] = 0.6 oz pur e alcohol) [facility] Utilities Answer Date Recorded In the past 12 months has th e electric, gas, oil, or water [employer] threatened to shut off services in your [...] care, and heating? Not very hard 02/04/2025 [facility] of Occupat ional Health - Occupational Stress [...] GED or equivalent No 02/04/2025 Preferred Language Iraqi 02/04/2025 PHQ-2 Answer Date Recorded Patient Health [...] of 2 - PCV) 02/18/2022 02/18/2021 ANNUAL WELLNESS VISIT 05/13/2022 RSV Vaccine - Adults (1 - [...] [employer] Implanted Type Area Battery Plate Assembler Device Identifier Shelf Expiration Date Model / Serial / Lot Hemost Abs Surgifoam Sz100 8x12 10mm - [id number] Implanted:Qt y: 1 on 05/16/2022 by Vini Peterson MD at [facility] Implant N/A: Spine Lumbar ETHICON DIV OF J AND J 1974 / / Kt Seal Hemos Abs Floseal Matrx Fast/Prep 10ml - [id number] Implanted:Qt y: 1 on 05/16/2022 by Vini Peterson MD at [facility] Implant N/A: Spine Lumbar [employer] [id number] 02/06/2024 [id number] / / [id number] Allogrft Bone Vivigen Celluar Matrx Formable 5cc - [id number] Implanted:Qt y: 1 on 05/16/2022 by Vini Peterson MD at [facility] Implant N/A: Spine Lumbar [facility] 03/14/2023 [id number] / / Vernon Tpal Peek [id number] - [id number] Implanted:Qt y: 1 on 05/16/2022 by Vini Peterson MD at [facility] Implant N/A: Spine Lumbar DEPUY SPINE [id number] / / Scrw Viper Innr St - [id number] Implanted:Qt y: 4 on 05/16/2022 by Vini Peterson MD at [facility] Implant N/A: Spine Lumbar DEPUY SPINE [id number] / / Enrike Prebnt Spine Expedium Ti 5.5x40mm - [id number] Implanted:Qt y: 2 on 05/16/2022 by Vini Peterson MD at [facility] Implant N/A: Spine Lumbar DEPUY SPINE [id number] / / Scrw Expedium Pa Ti 6x50mm - [id number] Implanted:Qt y: 2 on 05/16/2022 by Vini Peterson MD at [facility] Implant N/A: Spine Lumbar DEPUY SPINE [id number] / / Scrw Expedium Pa Ti 6x45mm - [id number] Implanted:Qt y: 2 on 05/16/2022 by Vini Peterson MD at [facility] Implant N/A: Spine Lumbar DEPUY SPINE [id number] / / Hemost Abs Surgifoam Sz100 8x12 10mm - [id number] Implanted:Qt y: 2 on 02/03/2025 by Vini Peterson MD at [facility] Implant N/A: Spine Lumbar ETHICON DIV OF J AND J [id number] 08/05/2028 1974 / / [id number] Description:Given to the bret arellano Wax Bone Hemo Lukens Sharpoint 2.5gm Wht - [id number] Implanted:Qt y: 1 on 02/03/2025 by Vini Peterson MD at [facility] Implant N/A: Spine Lumbar [employer] JAIDA [id number] 02/06/2029 [id number] / / [id number] Description:Given to the bret arellano Allogrft Bone Vivigen Celluar Matrx Formable 5cc - [id number] - [id number] Implanted:Qt y: 1 on 02/03/2025 by Vini Peterson MD at [facility] Implant N/A: Spine Lumbar [facility] [id number] 01/10/2026 [id number] / [id number] / Scrw Gurvinder Viper Fen Pa Ti 7x50mm - [id number] Implanted:Qt y: 2 on 02/03/2025 by Vini Peterson MD at [facility] Implant N/A: Spine Lumbar DEPUY SPINE [id number] / / Scrw Gurvinder Viper Fen Pa Ti 7x45mm - [id number] Implanted:Qt y: 2 on 02/03/2025 by Vini Peterson MD at [facility] Implant N/A: Spine Lumbar DEPUY SPINE [id number] / / Enrike Prebnt Spine Expedium Ti 5.5x40mm - [id number] Implanted:Qt y: 2 on 02/03/2025 by Vini Peterson MD at [facility] Implant N/A: Spine Lumbar DEPUY SPINE [id number] / / Scrw Viper Innr St - [id number] Implanted:Qt y: 4 on 02/03/2025 by Vini Peterson MD at [facility] Implant N/A: Spine Lumbar DEPUY SPINE [id number] / / Cmt Bone Confidence/P ls Ds Kt 11cc - [id number] Implanted:Qt y: 1 on 02/03/2025 by Vini Peterson MD at [facility] Implant N/A: Spine Lumbar DEPUY SPINE [id number] / / Kt Seal Hemos Abs Floseal Matrx Fast/Prep 10ml - [id number] Implanted:Qt y: 1 on 02/03/2025 by Vini Peterson MD at [facility] Implant N/A: Spine Lumbar [facility] [id number] 07/30/2026 [id number] / / [id number] Description:Given to the bret lee field Procedures [...] ANESTHESIA INTUBATION Routine 02/03/2025 8:05 AM EDT [place] ARTHRODESIS COMBINED TQ 1NTRSPC LUMBAR 02/03/2025 7:22 AM EDT Special Needs DEPUY WITH CEMENT AUGMENTATION, FARM MARKETER, RK TABLE, CELL SAVER (CONFIRMED WITH MATILDE [...] resultswithin the time period is included. [facility] ECG ORDERABLES Final Result * Potassium (02/05/2025 6:59 AM EDT) Only the most recent of2 resultswithin the time period is included. Potassium 3.9 3.5 - 5.2 mmol/L 02/05/2025 8:25 AM EDT [facility] Blood Venipuncture / Unknown 02/05/2025 6:59 AM EDT 02/05/2025 7:51 AM EDT Pavithra Oakes MD LAB BLOOD ORDERABLES Final Result Performing Organization Address [facility] Co de Phone Number [facility]
[address] [place] [address], * (ABNORMAL) Hemoglobin & Hematocrit, Blood (02/04/2025 6:15 AM EDT) Hemoglobin 9.7(L) 12.0 - 15.9 g/dL 02/04/2025 6:37 AM EDT [facility] Hematocrit 31.1(L) 34.0 - 46.6 % 02/04/2025 6:37 AM EDT [facility] Blood Venipuncture / Unknown 02/04/2025 6:15 AM EDT 02/04/2025 6:33 AM EDT Vini Peterson MD LAB BLOOD ORDERABLES Final Res ult Performing Organization Address [facility] Co de Phone Number [facility]
[address] [place] [address], * (ABNORMAL) Basic Metabolic Panel (02/04/2025 6:15 AM EDT) Glucose 101(H) 65 - 99 mg/dL 02/04/2025 7:01 AM EDT [facility] BUN 11.2 8.0 - 23.0 mg/dL 02/04/2025 7:01 AM EDT [facility] Creatinine 0.87 0.57 - 1.00 mg/dL 02/04/2025 7:01 AM EDT [facility] Sodium 138 136 - 145 mmol/L 02/04/2025 7:01 AM EDT [facility] Potassium 5.4(H) 3.5 - 5.2 mmol/L 02/04/2025 7:01 AM EDT [facility] Chloride 105 98 - 107 mmol/L 02/04/2025 7:01 AM EDT [facility] CO2 27.0 22.0 - 29.0 mmol/L 02/04/2025 7:01 AM EDT [facility] Calcium 9.5 8.6 - 10.5 mg/dL 02/04/2025 7:01 AM EDT [facility] BUN/Creatinine Ratio 12.9 7.0 - 25.0 02/04/2025 7:01 AM EDT [facility] Anion Gap 6.0 5.0 - 15.0 mmol/L 02/04/2025 7:01 AM EDT [facility] eGFR 68.7 >60.0 mL/min/1.7 3 02/04/2025 7:01 AM EDT [facility] Blood Venipuncture / Unknown 02/04/2025 6:15 AM EDT 02/04/2025 6:34 AM EDT Narrative [facility] - 02/04/2025 7:01 AM EDT GFR [...] MD LAB BLOOD ORDERABLES Final Result [facility]
[address] [place] [address], * FL C Arm During Surgery (02/03/2025 [...] and Staff Patient location during procedure: OR CLOTH BOIL OFF MACHINE OPERATOR/CAA: David Mcmillan CRNA Indications and Patient Condition [...] Type A 02/03/2025 7:43 AM EDT [facility] RH type Positive 02/03/2025 7:43 AM EDT [facility] Antibody Screen Negative 02/03/2025 7:43 AM EDT [facility] T&S Expiration Date 02/06/2025 11:59:59 PM 02/03/2025 7:43 AM EDT [facility] Blood Line / Unknown 02/03/2025 6: 46 AM EDT 02/03/2025 6:52 AM EDT Vini Peterson MD BLOOD BANK TEST ORDERABLES Sanchez antonina Result - Final Performing Organization Address City/[facility]/ZIP Co de Phone Number [facility]
[address] [place] [address], * ECG Scan (02/03/2025) [facility] ECG ORDERABLES Final Result * IMAGING SCANNED (02/03/2025) Anatomical Region Laterality Modality Radiographic Carmella ging [facility] IMG DIAGNOSTIC IMAGING ORDERA BLES Final Result * LABS SCANNED (02/03/2025) [facility] BLOOD ORDERABLES Final Re sult * (ABNORMAL) Protime-INR (01/29/2025 10:14 AM EDT) Protime 12.2 12.2 - 15.3 Seconds 01/29/2025 10:38 AM EDT [facility] INR 0.86(L) 0.89 - 1.12 01/29/2025 10:38 AM EDT [facility] Blood Venipuncture / Unknown 01/29/2025 10:14 AM EDT 01/29/2025 10:21 AM EDT Vini Peterson MD LAB BLOOD ORDERABLES Final Res ult Performing Organization Address City/[facility]/ZIP Co de Phone Number [facility]
[address] [place] [address], * (ABNORMAL) CBC (No Diff) (01/29/2025 9:58 AM EDT) WBC 4.48 3.40 - 10.80 10*3/mm3 01/29/2025 11:24 AM EDT [facility] RBC 3.91 3.77 - 5.28 10*6/mm3 01/29/2025 11:24 AM EDT [facility] Hemoglobin 11.0(L) 12.0 - 15.9 g/dL 01/29/2025 11:24 AM EDT [facility] Hematocrit 36.0 34.0 - 46.6 % 01/29/2025 11:24 AM EDT [facility] MCV 92.1 79.0 - 97.0 fL 01/29/2025 11:24 AM EDT [facility] MCH 28.1 26.6 - 33.0 pg 01/29/2025 11:24 AM EDT [facility] MCHC 30.6(L) 31.5 - 35.7 g/dL 01/29/2025 11:24 AM EDT [facility] RDW 14.1 12.3 - 15.4 % 01/29/2025 11:24 AM EDT [facility] RDW-SD 47.5 37.0 - 54.0 fl 01/29/2025 11:24 AM EDT [facility] MPV 9.2 6.0 - 12.0 fL 01/29/2025 11:24 AM EDT [facility] Platelets 313 140 - 450 10*3/mm3 01/29/2025 11:24 AM EDT [facility] Blood Venipuncture / Unknown 01/29/2025 9:58 AM EDT 01/29/2025 10:21 AM EDT us Vini Peterson MD LAB BLOOD ORDERABLES Final Res ult [facility]
[address] [place] [address], * MRSA Screen Culture (Outpatient) - Swab, Nares (01/29/2025 9:58 AM EDT) MRSA Screen Cx No Methicillin Resistant Staphylococcus aureus isolated NIKKIE 01/30/2025 10:31 AM EDT [facility] Swab Structure of anterior naris / Unknown Collection / Unknown 01/29/2025 9:58 AM EDT 01/29/2025 10:28 AM EDT [facility] - 01/30/2025 10:31 AM EDT The negative predictive value of this diagnostic test is high and should only be used to consider de-escalating anti-MRSA therapy. A positive result may indicate colonization with MRSA and must be correlated clinically. Vini Peterson MD MICROBIOLOGY - GENERAL ORDERAB LES Final Result Performing Organization Address [facility]/ZIP Co de Phone Number [facility]
[address] [place] [address], [place] [phone] * Hemoglobin A1c (01/29/2025 9:58 AM EDT) Pathologist [facility] Hemoglobin A1C 5.60 4.80 - 5.60 % 01/29/2025 10:50 AM EDT [facility] Blood Venipuncture / Unknown 01/29/2025 9:58 AM EDT 01/29/2025 10:21 AM EDT [facility] - 01/29/2025 10:50 AM EDT Hemoglobin A1C Ranges: Increased Risk for Diabetes 5.7% to 6.4% Diabetes >= 6.5% Diabetic Goal < 7.0% Vini Peterson MD LAB BLOOD ORDERABLES Final Res ult [facility]
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
== END 2025-05-01 23:59 | disposition home or self-care (01) ==
LOC: RAD 12:41
PROVIDERS: PCP Family Medicine; Visit Provider Physician Assistant Surgical
DX: S52.531D Colles' fracture of right radius, subsequent encounter for closed fracture with routine healing (principal); S52.611D Displaced fracture of right ulna styloid process, subsequent encounter for closed fracture with routine healing; W19.XXXD Unspecified fall, subsequent encounter
CPT/HCPCS: 73110

== ENCOUNTER 2025-06-02 14:25 | Outpatient (CLI) | payer MEDICARE, SELFPAY ==
--- NOTE | 2025-06-02 14:26 | XR_ITS ---
FINAL REPORT CLINICAL HISTORY: right wrist fx COMPARISON: 05/01/2025 FINDINGS: RIGHT WRIST Three views were obtained. Overlying cast has been removed. There is an impacted, dorsally angulated comminuted fracture of the distal radial metaphysis. There is also transverse fracture of the base of the radial styloid. Findings are better seen on today's exam. There has been progressive callus formation at the level of the distal radius. IMPRESSION: Fractures as above. Reviewed, Interpreted and Dictated by Zac Dhaliwal MD Transcribed by Evy Herrera Authenticated and [facility]
--- OUTSIDE RECORDS SUMMARY | 2025-06-02 14:31 | XMS_ITS | Clinical Summary ---
Author Organization [facility] Address [address] [place] [address] Care Team Providers Care Subsurface Augmentee Operator Name Role Phone Placido Mercado MD Primary Care Provider [phone] Allergies No known active allergies Medications gabapentin [...] if needed for headaches. Active HYDROcodone-edith taminophen ([place]) 7.5-325 MG tablet 1 tablet (7.5 mg [...] place to sleep or slept in a custodial (including now)? No 10/16/2023 Utilities Answer Date [...] r (1 - 1-dose 75+ series) 11/08/2022 [id number] Vaccine ( - 2024- season) 2025 07/14/2021, 12/11/2020, 11/10/2020 UKY-Influenza Vaccine (#1) 2025 [...] medications. Staff Staff Role [facility] Visual Merchandising Associate Jade Vale, OPTOMECHANICAL ENGINEER Sara Shepard, RN Endo Nurse Dipika Najera, ANN Endo Nurse Castillo Cartagena MD Anesthesiologist Melsia Santo, DO Proceduralist Tres Dao MD Proceduralist [...] of bowel preparation was evaluated using the [place] Bowel Preparation Scale with scores of: left [...] Negative 10/15/2023 6:39 AM EST [facility] Hepatitis B Core Antibody IgM Negative Negative 10/15/2023 6:39 AM EST [facility] Blood Venous blood specimen / Unknown Venipuncture / Unknown 10/15/2023 12:57 AM EST 10/15/2023 1:14 AM EST us Patricia Barkley APRN, YADI LAB BLOOD ORDERABLES Liliya l Result Performing Organization Address [facility] Co de Phone Number [facility] [address] [place] [address] * (ABNORMAL) Hemoglobin A1c (10/13/2023 11:49 PM EST) Hemoglobin A1c 5.8(H) <5.7 % 10/14/2023 3:36 AM EST [facility] Blood Venous blood specimen / [...] Adults <6.0% Children and Adolescents <7.5% Source: [place] Diabetes Association. Standards of medical care in diabetes,2017. Diabetes Care.2017:40 (suppl 1):S1-S135. HbA1c assay performed by an ion-exchange chromatography method that is certified traceable to the DCCT. us Hesham Whiteside MD LAB BLOOD ORDERABLES Final Re sult [facility] [address] [place] [address] from Last 3 Months or Most Recently Relevant to Health Maintenance Insurance [employer] MEDICARE Advance Directives * Full Code (Latest Code Status on File) Date Activated Date Inactivated Comments 10/18/2023 4:44 PM 10/23/2023 5:27 PM Question Answer Comments Patient has decision-making capacity? Yes Care Teams Subsurface Augmentee Operator Relationship Specialty Start Date End Date Placido Mercado MD [facility] [place] [address] PCP - General 10/16/23
--- OUTSIDE RECORDS SUMMARY | 2025-06-02 14:31 | XMS_ITS | Encounter Summary ---
Author Organization Healthcare Address [address] [place] [address] Care Team Providers Care Nurse Plastics Name Role Phone Placido Mercado MD Primary Care Provider [phone] Encounter Details Date Type Department Care Team (Late st Contact Info) Description 10/16/2023 Lab Requisition [facility] [address] [place] [address] Jonas Tony MD [address] [facility] [address] [place] [address] Encounter for general adult medical [...] place to sleep or slept in a residential (including now)? No 10/16/2023 Utilities Answer Date [...] ERAL ORDERABLES Final Result Performing Organization Address City/State/[facility] Co de Phone Number HEALTHCARE LAB [address] [place] [address] documented in this encounter Visit Diagnoses Diagnosis Encounter for general adult medical examination without abnormal findings documented in this encounter Additional Health Concerns Assessment Noted Time A Body Mass Index follow-up plan has been documented for the patient 10/23/2023 2:41 PM EST documented as of this encounter Care Teams Nurse Plastics Relationship Specialty Start Date End Date Placido Mercado MD [address] [place] [address] PCP - General 10/16/23 documented as of this encounter
--- OUTSIDE RECORDS SUMMARY | 2025-06-02 14:31 | XMS_ITS | Clinical Summary ---
Author Organization [facility] Address [address] [place] [address] Care Team Providers Care Consumer Recruiter Name Role Phone Placido Mercado MD Primary Care Provider [phone] Allergies No known active allergies Medications lisinopril-hydr [...] 1 capsule by mouth Daily. Active Coenzyme N23-Nyflxcc E (QUNOL ULTRA COQ10 PO) Take 100 [...] a Day for 3 days. 9 capsule 5 Active Active Problems Problem Noted Date Diagnosed [...] spinal fusion, decompression 05/16/20 22 Obesity 05/16/2022 Immunizations Immunization Administration Dates Next Due COVID-19 (MODERNA) 1st,2nd,3rd Dose Monovalent 0 12/11/2020,11/10/2020 COVID-19 (MODERNA) Monovalent Original Booster 1 09/13/2020 Hepatitis A 04/25/2019 Pneumococcal Polysaccharide (PPSV23) 02/18/2021 Social History Tobacco Use Types Packs/Day Years Used Date Smoking Tobacco: Former Smokeless Tobacco: Never Alcohol Use Standard Drinks/Week Comments Never 0 (1 standard drink = 0.6 oz pur e alcohol) [facility] Utilities Answer Date Recorded In the [...] care, and heating? Not very hard 02/04/2025 [employer] [facility] - Occupational Stress [...] GED or equivalent No 02/04/2025 Preferred Language Uzbek 02/04/2025 PHQ-2 Answer Date Recorded Patient Health [...] (1 - 1- dose 75+ series) 11/08/2022 INFLUENZA VACCINE 04/04/2025 COVID-19 Vaccine (4 - 2024-2 6 season) 2025 07/14/2021, 12/11/2020, 11/10/2020 HEPATITIS C SCREENING Completed 10/15/2023, 024 COLON CANCER SCREENING 5 YEA R SIGMOIDOSCOPY Discontinued 10/18/2023 COLORECTAL CANCER SCREENING Discontinued COLOGUARD Discontinued COLONOSCOPY Discontinued CT COLONOGRAPHY Discontinued FECAL OCCULT BLOOD TEST Discontinued FIT Testing (1 year) Discontinued Goals Goal Patient Goal Type Associated Problems Recent Progress Patient-Stated? Author Autogenerat ed Goal Care Plan Autogenerated Problem Shan Shen Medical Devices Implanted Type Area Medical Orderly Device Identifier Shelf Expiration Date Model / Serial / Lot Hemost Abs Surgifoam Sz100 8x12 10mm - [id number] Implanted:Qt y: 1 on 05/16/2022 by Vini Peterson MD at [facility] Implant N/A: Spine Lumbar ETHICON DIV OF J AND J 1974 / / Kt Seal Hemos Abs Floseal Matrx Fast/Prep 10ml - [id number] Implanted:Qt y: 1 on 05/16/2022 by Vini Peterson MD at [facility] Implant N/A: Spine Lumbar Tandem [id number] 02/06/2024 [id number] / / [id number] Allogr Bone Vivigen Celluar Matrx Formable 5cc - [id number] Implanted:Qt y: 1 on 05/16/2022 by Vini Peterson MD at [facility] Implant N/A: Spine Lumbar [facility] 03/14/2023 [id number] / / Spacr Tpal Peek [id number] - [id number] Implanted:Qt y: 1 on 05/16/2022 by Vini Peterson MD at [facility] Implant N/A: Spine Lumbar DEPUY SPINE [id number] / / Scrw Viper Innr St - [id number] Implanted:Qt y: 4 on 05/16/2022 by Vini Peterson MD at [facility] Implant N/A: Spine Lumbar DEPUY SPINE [id number] / / Enrike Prebnt Spine Expedium Ti 5.5x40mm - [id number] Implanted:Qt y: 2 on 05/16/2022 by Vini Peterson MD at [facility] Implant N/A: Spine Lumbar DEPUY SPINE [id number] / / Scrw Expedium Pa Ti 6x50mm - [id number] Implanted:Qt y: 2 on 05/16/2022 by Vini Peterson MD at [facility] Implant N/A: Spine Lumbar DEPUY SPINE [id number] / / Scrw Expedium Pa Ti 6x45mm - [id number] Implanted:Qt y: 2 on 05/16/2022 by Vini Peterson MD at [facility] Implant N/A: Spine Lumbar DEPUY SPINE [id number] / / Hemost Abs Surgifoam Sz100 8x12 10mm - [id number] Implanted:Qt y: 2 on 02/03/2025 by Vini Peterson MD at [facility] Implant N/A: Spine Lumbar ETHICON DIV OF J AND J [id number] 08/05/2028 1974 / / [id number] Description:Given to the [facility] jesus arellano Wax Bone Hemo Lukens Sharpoint 2.5gm Wht - [id number] Implanted:Qt y: 1 on 02/03/2025 by Vini Peterson MD at [facility] Implant N/A: Spine Lumbar [employer]IES JAIDA [id number] 02/06/2029 [id number] / / [id number] Description:Given to the bret arellano Allogrft Bone Vivigen Celluar Matrx Formable 5cc - [id number] - [id number] Implanted:Qt y: 1 on 02/03/2025 by Vini Peterson MD at [facility] Implant N/A: Spine Lumbar [facility] [id number] 01/10/2026 [id number] / [id number] / Scrw Gurvinder Viper Fen Pa Ti 7x50mm - [id number] Implanted:Qt y: 2 on 02/03/2025 by Vini Peterson MD at [facility] Implant N/A: Spine Lumbar DEPUY SPINE [id number] / / Scrw Gurvinder Viper Fen Pa Ti 7x45mm - [id number] Implanted:Qt y: 2 on 02/03/2025 by Vini Peterson MD at [facility] Implant N/A: Spine Lumbar DEPUY SPINE [id number] / / Enrike Prebnt Spine Expedium Ti 5.5x40mm - [id number] Implanted:Qt y: 2 on 02/03/2025 by Vini Peterson MD at [facility] Implant N/A: Spine Lumbar DEPUY SPINE [id number] / / Scrw Viper Innr St - [id number] Implanted:Qt y: 4 on 02/03/2025 by Vini Peterson MD at [facility] Implant N/A: Spine Lumbar DEPUY SPINE [id number] / / Cmt Bone Confidence/P ls Ds Kt 11cc - [id number] Implanted:Qt y: 1 on 02/03/2025 by Vini Peterson MD at [facility] Implant N/A: Spine Lumbar DEPUY SPINE [id number] / / Kt Seal Hemos Abs Floseal Matrx Fast/Prep 10ml - [id number] Implanted:Qt y: 1 on 02/03/2025 by Vini Peterson MD at [facility] Implant N/A: Spine Lumbar [facility] [id number] 07/30/2026 [id number] / / [id number] Description:Given to the [facility] Additional Health Concerns Active Problems Noted Date Diagnosed Date Autogenerated Problem 03/06/2025 Insurance [facility] MEDICARE ADVANTAGE HUMAN MEDICARE ADVANTAGE PPO Advance Directives Documents on File Type Date Recorded Patient Internal Control Specialist Expl anation LIVING WILL - SCAN 01/29/2025 [...] Release to patient: Routine Release Care Teams Consumer Recruiter Relationship Specialty Start Date End Date Placido Mercado MD [address] [place] [address] PCP - General Family Medicine 01/29/25
== END 2025-06-02 23:59 | disposition home or self-care (01) ==
LOC: RAD 14:26
PROVIDERS: Visit Provider Physician Assistant Surgical
DX: S52.531A Colles' fracture of right radius, initial encounter for closed fracture (principal); S52.511A Displaced fracture of right radial styloid process, initial encounter for closed fracture
CPT/HCPCS: 73110

== ENCOUNTER 2025-06-16 11:28 | Emergency (ER) | payer MEDICARE, SELFPAY ==
[2025-06-16 11:30] VITALS: BP 133/77; PULSE 93; O2SAT 97
[2025-06-16 11:33] VITALS: BP 133/85; PULSE 88; RESP 16; TEMP 36.8; O2SAT 98; BMI 30.1
--- OUTSIDE RECORDS SUMMARY | 2025-06-16 11:33 | XMS_ITS | Clinical Summary ---
Author Organization [facility] Address [address] [place] [address] Care Team Providers Care Knitting Machine Fixer Head Name Role Phone Placido Mercado MD Primary Care Provider [phone] Allergies No known active allergies Medications gabapentin [...] if needed for headaches. Active HYDROcodone-edith taminophen (Simpson) 7.5-325 MG tablet 1 tablet (7.5 mg [...] r (1 - 1-dose 75+ series) 11/08/2022 [id number] Vaccine ( - 2024- season) 2025 07/14/2021, [...] medications. Staff Staff Role Kristine [facility] End[facility] Drupal Programmer Jade Vale, HUMAN RESOURCES ADMIN Sara Shepard, RN Endo Nurse Dipika Najera, [...] of bowel preparation was evaluated using the [place] Bowel Preparation Scale with scores of: left [...] IgM Negative Negative 10/15/2023 6:39 AM EST [facility] Hepatitis B Core Antibody IgM Negative Negative 10/15/2023 6:39 AM EST [facility] Blood Venous blood specimen / Unknown Venipuncture / Unknown 10/15/2023 12:57 AM EST 10/15/2023 1:14 AM EST us Patricia Barkley APRN, YADI LAB BLOOD ORDERABLES Liliya l Result Performing Organization Address [facility] Co de Phone Number [facility] [address] [place] [address] * (ABNORMAL) Hemoglobin A1c (10/13/2023 11:49 PM EST) Hemoglobin A1c 5.8(H) <5.7 % 10/14/2023 3:36 AM EST [facility] Blood Venous blood specimen / Unknown [...] Adults <6.0% Children and Adolescents <7.5% Source: [place] Diabetes Association. Standards of medical care in diabetes,2017. Diabetes Care.2017:40 (suppl 1):S1-S135. HbA1c assay performed by an ion-exchange chromatography method that is certified traceable to the DCCT. us Hesham Whiteside MD LAB BLOOD ORDERABLES Final Re sult [facility] [address] [place] [address] from Last 3 Months or Most Recently Relevant to Health Maintenance Insurance [employer] MEDICARE Advance Directives * Full Code (Latest Code Status on File) Date Activated Date Inactivated Comments 10/18/2023 4:44 PM 10/23/2023 5:27 PM Question Answer Comments Patient has decision-making capacity? Yes Care Teams Knitting Machine Fixer Head Relationship Specialty Start Date End Date Placido Mercado MD [facility] [place] [address] PCP - General 10/16/23
--- OUTSIDE RECORDS SUMMARY | 2025-06-16 11:33 | XMS_ITS | Encounter Summary ---
Author Organization Healthcare Address [address] [place] [address] Care Team Providers Care [facility] Lab Technician Name Role Phone Placido Mercado MD Primary Care Provider [phone] Encounter Details Date Type Department Care Team (Late st Contact Info) Description 10/16/2023 Lab Requisition [facility] [address] [place] [address] Jonas Tony MD [address] [facility] [address] [place] [address] Encounter for general adult medical [...] place to sleep or slept in a alf (including now)? No 10/16/2023 Utilities Answer Date [...] ERAL ORDERABLES Final Result Performing Organization Address City/State/[facility] Co de Phone Number HEALTHCARE LAB [address] [place] [address] documented in this encounter Visit Diagnoses Diagnosis Encounter for general adult medical examination without abnormal findings documented in this encounter Additional Health Concerns Assessment Noted Time A Body Mass Index follow-up plan has been documented for the patient 10/23/2023 2:41 PM EST documented as of this encounter Care Teams [facility] Lab Technician Relationship Specialty Start Date End Date Placido Mercado MD [address] [place] [address] PCP - General 10/16/23 documented as of this encounter
--- OUTSIDE RECORDS SUMMARY | 2025-06-16 11:33 | XMS_ITS | Clinical Summary ---
Author Organization [facility] Address [address] [place] [address] Care Team Providers Care Director Television Name Role Phone Placido Mercado MD Primary Care Provider [phone] Allergies No known active allergies Medications lisinopril-hydr [...] 1 capsule by mouth Daily. Active Coenzyme S74-Ossqpsg E (QUNOL ULTRA COQ10 PO) Take 100 [...] drink = 0.6 oz pur e alcohol) [facility] Utilities Answer Date Recorded In the [...] care, and heating? Not very hard 02/04/2025 [facility] - Occupational [...] GED or equivalent No 02/04/2025 Preferred Language Dutch 02/04/2025 PHQ-2 Answer Date Recorded Patient Health [...] Shan Shen Medical Devices Implanted Type Area Rose Grading Supervisor Device Identifier Shelf Expiration Date Model / Serial / Lot Hemost Abs Surgifoam Sz100 8x12 10mm - [id number] Implanted:Qt y: 1 on 05/16/2022 by Vini Peterson MD at [facility] Implant N/A: Spine Lumbar ETHICON DIV OF J AND J 1974 / / Kt Seal Hemos Abs Floseal Matrx Fast/Prep 10ml - [id number] Implanted:Qt y: 1 on 05/16/2022 by Vini Peterson MD at [facility] Implant N/A: Spine Lumbar ANTER[employer] [id number] 02/06/2024 [id number] / / [id number] Allogr Bone Vivigen Celluar Matrx Formable 5cc - [id number] Implanted:Qt y: 1 on 05/16/2022 by Vini Peterson MD at [facility] Implant N/A: Spine Lumbar [facility] 03/14/2023 [id number] / / Spacr Tpal Peek 25m28j80dm - [id number] Implanted:Qt y: 1 on 05/16/2022 by Vini Peterson MD at [facility] Implant N/A: Spine Lumbar DEPUY SPINE [id number] / / Scrw Viper Innr St - [id number] Implanted:Qt y: 4 on 05/16/2022 by Vini Peterson MD at [facility] Implant N/A: Spine Lumbar DEPUY SPINE [id number] / / Enrike Prebnt Spine Expedium Ti 5.5x40mm - [id number] Implanted:Qt y: 2 on 05/16/2022 by Vini Peterson MD at [facility] Implant N/A: Spine Lumbar DEPUY SPINE [id number] / / Scrw Expedium Pa Ti 6x50mm - [id number] Implanted:Qt y: 2 on 05/16/2022 by Vini Peterson MD at [facility] Implant N/A: Spine Lumbar DEPUY SPINE [id number] / / Scrw Expedium Pa Ti 6x45mm - [id number] Implanted:Qt y: 2 on 05/16/2022 by Vini Peterson MD at [facility] Implant N/A: Spine Lumbar DEPUY SPINE [id number] / / Hemost Abs Surgifoam Sz100 8x12 10mm - [id number] Implanted:Qt y: 2 on 02/03/2025 by Vini Peterson MD at [facility] Implant N/A: Spine Lumbar ETHICON DIV OF J AND J [id number] 08/05/2028 1974 / / [id number] Description:Given to the [facility] jesus arellano Wax Bone Hemo Lukens Sharpoint 2.5gm Wht - [id number] Implanted:Qt y: 1 on 02/03/2025 by Vini Peterson MD at [facility] Implant N/A: Spine Lumbar [employer] SPECIALTIES JAIDA [id number] 02/06/2029 [id number] / / [id number] Description:Given to the bret arellano Allogrft Bone Vivigen Celluar Matrx Formable 5cc - [id number] - [id number] Implanted:Qt y: 1 on 02/03/2025 by Vini Peterson MD at [facility] Implant N/A: Spine Lumbar [facility] [id number] 01/10/2026 [id number] / [id number] / Scrw Gurvinder Viper Fen Pa Ti 7x50mm - [id number] Implanted:Qt y: 2 on 02/03/2025 by Vini Peterson MD at [facility] Implant N/A: Spine Lumbar DEPUY SPINE [id number] / / Scrw Gurvinder Viper Fen Pa Ti 7x45mm - [id number] Implanted:Qt y: 2 on 02/03/2025 by Vini Peterson MD at [facility] Implant N/A: Spine Lumbar DEPUY SPINE [id number] / / Enrike Prebnt Spine Expedium Ti 5.5x40mm - [id number] Implanted:Qt y: 2 on 02/03/2025 by Vini Peterson MD at [facility] Implant N/A: Spine Lumbar DEPUY SPINE [id number] / / Scrw Viper Innr St - [id number] Implanted:Qt y: 4 on 02/03/2025 by Vini Peterson MD at [facility] Implant N/A: Spine Lumbar DEPUY SPINE [id number] / / Cmt Bone Confidence/P ls Ds Kt 11cc - [id number] Implanted:Qt y: 1 on 02/03/2025 by Vini Peterson MD at [facility] Implant N/A: Spine Lumbar DEPUY SPINE [id number] / / Kt Seal Hemos Abs Floseal Matrx Fast/Prep 10ml - [id number] Implanted:Qt y: 1 on 02/03/2025 by Vini Peterson MD at [facility] Implant N/A: Spine Lumbar [facility] [id number] 07/30/2026 [id number] / / [id number] Description:Given to the bret lee field Additional Health Concerns Active Problems Noted Date Diagnosed Date Autogenerated Problem 03/06/[address] 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
--- NOTE | 2025-06-16 11:39 | XR_ITS ---
FINAL REPORT CLINICAL HISTORY: possible dislocation. injury to right arm. FINDINGS: RIGHT SHOULDER Three views demonstrate a comminuted fracture of the right humeral head and neck which is impacted. There does not appear to be dislocation of the glenohumeral joint. 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 No other fracture is identified. IMPRESSION: Impacted, comminuted fracture of the right humeral head and neck. No dislocation. Reviewed, Interpreted and Dictated by Carlotta Phelps MD Transcribed by Radha Luther Authenticated and [facility]
--- NOTE | 2025-06-16 11:41 | ED_ITS ---
<Statement entered by Billy Blum MD - 06/16/25 21:11> I independently examined this patient. MEchanical fall landing on outstretched R hand. R shoulder deformity. Axillary, radial ulnar median nerve distributions intact. Good pulses. Closed. Independently interpreted plain film to show R humeral neck fx. Ortho Dr. Macias consulted. interactive discussion. He wants to see her in clinic. Sling, gentle ROM exercises. Pain control. Return precautions. I was consulted by the BALTAZAR, and we discussed the complexity of problems being addressed. I approved the treatment and management plan for this patient's care in the emergency department, thus performing a substantial portion of the medical decision making. Billy Blum MD Discharge Plan Disposition Patient Disposition: Home, Self-Care Condition: Good Prescriptions Prescriptions: New oxycodone 5 mg tablet 5 mg PO Q6H PRN (Reason: pain) Qty: 8 0RF No Action coenzyme Q10 100 mg capsule 100 mg PO DAILY Excedrin Migraine 250-250-65 mg tablet 2 tab PO Q4-6H PRN (Reason: MIGRAINES) acetaminophen 500 mg capsule 1,000 mg PO ONCE chlorpheniramine maleate [Allergy Relief(chlorpheniramn)] 4 mg tablet 4 mg PO Q8H PRN (Reason: ALLERGIES) Rx Instructions: do not exceed 2 doses per 24 hrs meloxicam 15 mg tablet 15 mg PO DAILY methocarbamol 500 mg tablet 500 mg PO Q8H PRN (Reason: muscle spasm) Qty: 30 1RF lisinopril-hydrochlorothiazide 20-12.5 mg Tablet 1 tab PO DAILY gabapentin 300 mg Capsule 300 mg PO BID pravastatin 40 mg tablet 40 mg PO HS omeprazole 40 mg capsule,delayed release(DR/EC) 40 mg PO BID ferrous sulfate [Iron (ferrous sulfate)] 325 mg (65 mg iron) tablet 325 mg PO .qod Rx Instructions: Take 1 tab every other day oxycodone 5 mg tablet 5 mg PO Q6H PRN (Reason: pain) 3 Days Qty: 12 0RF Referrals Follow up/Referrals: Placido Mercado [Primary Care Provider, Medical] - See instructions Activity Restrictions/Add. Instructions Additional Instructions/Restrictions: Follow-up with orthopedics. Keep in sling when ambulatory, but gentle range of motion exercises when able. Return if any worsening pain despite medications at home numbness weakness or tingling. You have been prescribed opioid pain medications. Take only as prescribed and only when needed for pain. Please do not drive, operate heavy machinery, or make important decisions while taking this medication until you know how it affects you as they can impair your judgement. Do not drink alcohol while taking this medication. Should you need a refill of this pain medication, please contact your primary care provider. You were evaluated on an emergency basis. It is very important that you follow- up with your primary care provider and any specialist who we discussed within the next 2 days in order to better assess your health more comprehensively. For example, incidental findings on imaging or laboratory results that were performed today may be discovered, which do not require immediate medical care, but may impact your health in the future. If your symptoms worsen or persist, please return to the emergency department immediately for reassessment. Take all medications as prescribed. In queue for allowing me to participate in your health care, and I hope you feel better soon. Clinical Impressions Clinical Impression: Fracture, humerus, head Instructions Patient Instructions: DI for Shoulder Fracture Print Language Print Language: [place] Discharge ED Provider: Billy Blum General Adult HPI <Thuy Bradshaw - Last Filed: 06/16/25 13:23> General Chief complaint: Extremity Injury, Upper Stated complaint: Dislocated shoulder Time Seen by Provider: 06/16/25 11:30 History of Present Illness HPI narrative: 79-year-old female presents the emergency department with complaints of right shoulder pain. Patient states that she was tripping and falling and attempted to catch herself on the door frame when she felt pain in her left shoulder. She denies actually falling or hitting her head. Patient states she has never injured the shoulder before however she recently did just get a cast off of her right wrist. Also reports that she broke her left shoulder last year. She arrives via EMS. She has had morphine for pain control prior to arrival. She reports that her last oral intake was approximately 930 this morning. Related Data Home Medications ?Medication ?Instructions ?Recorded ?Confirmed gabapentin 300 mg capsule 300 mg PO BID Restless leg s yndrome 12/11/22 06/02/25 lisinopril 20 1 tab PO DAILY High blood pr essure 12/11/22 06/02/25 mg-hydrochlorothiazide 12.5 mg tablet Held on 12/14/22. Instructions: Resume on 12/16/22. omeprazole 40 mg capsule,delayed 40 mg PO BID Acid ref lux 12/12/22 06/02/25 release pravastatin 40 mg tablet 40 mg PO HS Cholesterol 12/0306/02/25 ferrous sulfate 325 mg (65 mg 325 mg PO .qod Supplemen t 02/07/23 06/02/25 iron) tablet (Iron (ferrous sulfate)) acetaminophen 500 mg capsule 1,000 mg PO ONCE 04/05/23 06/02/25 uupdvjz-uabaufaojvyer-hegybmsl 250 2 tab PO Q4-6H PRN MIGRAINES 04/05/23 06/02/25 mg-250 mg-65 mg tablet (Excedrin Migraine) chlorpheniramine maleate 4 mg 4 mg PO Q8H PRN ALLERGIE S 04/05/23 06/02/25 tablet (Allergy Relief (chlorpheniramine)) coenzyme Q10 100 mg capsule 100 mg PO DAILY 04/05/23 0 06/02/25 meloxicam 15 mg tablet 15 mg PO DAILY 05/17/2305/06 Previous Rx's ?Medication ?Instructions ?Recorded methocarbamol 500 mg tablet 500 mg PO Q8H PRN muscle s pasm #30 08/22/24 tabs oxycodone 5 mg tablet 5 mg PO Q6H PRN pain 3 days #12 12/29/24 tabs oxycodone 5 mg tablet 5 mg PO Q6H PRN pain #8 tabs 06/16/25 Allergies Allergy/AdvReac Type Severity Reaction Status Date / Time No Known Allergies Allergy Verified 06/02/25 14:38 [facility] <Thuy Bradshaw - Last Filed: 06/16/25 13:23> [facility] Disclaimer: The information contained in this section may have been updated after the patient was seen, as this information can be updated by other users. Medical History Hammertoe of left foot Left foot drop History of back pain Osteoarthritis History of gastroesophageal reflux (GERD) Hemorrhoid Hyperlipidemia Hypertension History of anemia Cataract Surgical History History of colonoscopy Family History Other Family history of diabetes mellitus type II Family history of hyperlipidemia Family history of hypertension Family history of leukemia Social History Smoking Status: Never smoker alcohol intake: never substance use type: denies use current occupational status: other Travel in the last 8 weeks?: None household members: children housing: house lives independently: No marital status: well-balanced diet: daily or most days physical activity: none Have you lived/traveled outside [place] in past 30 days?: No Contact w/someone who lives/traveled outside US past 30 days?: No Exposure to someone with infectious disease in past 14 days?: No Do you have a fever (greater than 100.4 F or 38 C)?: No Have you tested positive for COVID-19?: No Exposed to someone with COVID-19 in past 14 days?: No Do you have a sore throat?: No Do you have a cough?: No Do you have any weakness?: No Do you have any diarrhea?: No Are you experiencing any unusual bleeding?: No Do you have any muscle aches/pain?: No Do you have any abdominal pain?: No Are you experiencing loss of taste or smell?: No Other Medical History Have you received the Flu Vaccine for this season: No Have you received the Pneumonia Vaccine: Yes <Thuy Bradshaw Last Filed: 06/16/25 13:23> ROS Obtained: Yes other Musculoskeletal Musculoskeletal: Reports arthralgias and Reports deformity Physical Exam <Thuy Bradshaw [facility] Filed: 06/16/25 13:23> Narrative Physical exam: General: Awake, aware, in no acute distress HEENT: Normocephalic, no evidence of trauma CV: RRR, no murmurs, rubs, or gallops Pulm: CTA bilaterally with no rhonchi, rales, wheezes ABD: Nontender, no swelling, guarding, or rebound tenderness Psych, appropriate mood and affect Musculoskeletal: Patient with decreased range of motion to right shoulder. Sensations intact with 2+ pulses and brisk capillary refill. Patient reports tenderness on palpation of her shoulder. There does appear to be a deformity present that is concerning for dislocation. General General appearance: alert Respiratory Respiratory exam: Present normal lung sounds bilaterally Cardiovascular Cardiovascular exam: Present regular rate Neurological Exam Neurological exam: Present alert Medical Decision Making <Thuy Bradshaw [facility] Filed: 06/16/25 13:23> Medical Records Screening: Per USPSTF and CDC recommendations, given the prevalence of disease in our region, it is our hospital?s policy to screen for HIV and viral Hepatitis for all patients aged 18 and over and those with ongoing risk factors. Wayne Inquiry Pt receiving controlled substance: Yes [place] was queried for this patient: Yes Risks and benefits of using a controlled substance: were discussed with pt by me Vital Signs: 06/16/25 11:30 06/16/25 11:33 06/16/25 11:33 Temperature 98.3 F 98.3 F Temperature Source Oral Pulse Rate 93 H 88 Pulse Rate [Right] 88 Respiratory Rate 16 16 Blood Pressure 133/77 133/85 Blood Pressure [Left Arm] 133/85 Blood Pressure Mean [Left Arm] 101 02 Sat by Pulse Oximetry 97 98 98 Oxygen Delivery Method 06/16/25 12:00 06/16/25 12:31 Temperature Temperature Source Pulse Rate 80 Pulse Rate [Right] Respiratory Rate 13 16 Blood Pressure 149/94 H 108/64 L Blood Pressure [Left Arm] Blood Pressure Mean [Left Arm] 02 Sat by Pulse Oximetry 99 Oxygen Delivery Method Room Air Orders (Tests/Meds): ORDERS Category Date Time Status Shoulder XR right miminum 2 views [XR shoulder RT min Exams 06/16/25 11:39 Taken 2V] Stat Medical Decision Narrative: Initial impression of presenting illness: 79-year-old female presents emergency department complaints of pain to her right shoulder. Reports that she was tripping and about to fall when she caught herself on outstretched hand on the door frame. She reports that she immediately felt pain in her right shoulder. Patient arrives via EMS and has received morphine prior to arrival. Patient states that she recently got a cast off of her right wrist after fracturing it. She also states that she has had a recent left shoulder fracture. Differential diagnosis includes but is not limited to: Fracture, dislocation Patient arrives hemodynamically stable, afebrile, without respiratory distress with vital signs interpreted by myself. Initial physical exam reveals tenderness on palpation of right shoulder. There is a deformity there that is concerning for dislocation. Station is intact with 2+ pulses in all extremities. Range of motion is limited to right upper extremity due to pain. Patient with brisk capillary refill. Initial diagnostic plan: EKG in preparation for will likely be a procedural sedation related to dislocated shoulder, x-ray of right shoulder, pain control Results from initial plan were reviewed and interpreted by myself, pertinent positives include: X-ray of right shoulder shows a humeral head fracture. Interventions in the ED: Patient was given Percocet for pain as well as her arm placed in a sling for comfort and stabilization of the fracture. Patient was made aware of the results and the findings, upon reevaluation patient has remained stable throughout stay, symptoms remain stable. Upon reevaluation patient is resting comfortably in her room with no signs of acute distress. Consultation/discussion with other physicians: Spoke with orthopedic provider Dr. Macias regarding patient's fracture. He recommended placing her in sling and following up in. Disposition: Reviewed the findings today's workup with patient informed she does have a humeral head fracture. Recommended that she contact the orthopedic provider's office today to schedule close outpatient follow-up. Vies her that we will also give her prescription for pain medications. Informed her that this is a narcotic based pain medication and she should use caution while taking it as it can make her drowsy. Informed her there is also increased risk of constipation. Instructed her to return to the emergency department any new or w orsening symptoms. Is agreeable to plan of care. Patient made aware of findings and had a detailed discussion with symptomatic care and return precautions, patient voiced understanding. <Billy Blum MD - Last Filed: 06/16/25 12:01> Vital Signs: 06/16/25 11:30 06/16/25 11:33 06/16/25 11:33 Temperature 98.3 F 98.3 F Temperature Source Oral Pulse Rate 93 H 88 Pulse Rate [Right] 88 Respiratory Rate 16 16 Blood Pressure 133/77 133/85 Blood Pressure [Left Arm] 133/85 Blood Pressure Mean [Left Arm] 101 02 Sat by Pulse Oximetry 97 98 98 Oxygen Delivery Method 06/16/25 12:00 06/16/25 12:31 Temperature Temperature Source Pulse Rate 80 Pulse Rate [Right] Respiratory Rate 13 16 Blood Pressure 149/94 H 108/64 L Blood Pressure [Left Arm] Blood Pressure Mean [Left Arm] 02 Sat by Pulse Oximetry 99 Oxygen Delivery Method Room Air Orders (Tests/Meds): ORDERS Category Date Time Status Shoulder XR right miminum 2 views [XR shoulder RT min Exams 06/16/25 11:39 Taken 2V] Stat ECG Data Tracing #1: I reviewed this ECG and interpreted as documented below: Independently interpreted by myself demonstrate normal sinus rhythm with no obvious acute ischemic ST change Critical Care <Thuy Bradshaw - Last Filed: 06/16/25 13:23> Critical Care Time Critical Care Time: No
--- NOTE | 2025-06-16 11:53 | ECG_ITS ---
APPROVED REPORT Exam: Resting ECG HR:79 bpm ECG Measurements Heart Rate 79 AXES [place] 131 P 59 QRSd 81 QRS 57 QT 364 T 22 QTc 399 Conclusion SINUS RHYTHM NORMAL ECG UNCONFIRMED REPORT Electronically signed by : Billy Blum, 06/16/2025 15:48:19
[2025-06-16 12:00] VITALS: BP 149/94; PULSE 80; RESP 13; O2SAT 99
[2025-06-16 12:31] VITALS: BP 108/64; RESP 16
[2025-06-16] MEDS: OXYCODONE 5MG W/APAP 325MG TABLET 1 EACH PO (13:22)
[2025-06-16 13:50] VITALS: BP 132/79; PULSE 91; RESP 18; TEMP 36.8; O2SAT 98
== END 2025-06-16 14:08 | disposition home or self-care (01) ==
PROVIDERS: Emergency Provider Emergency Medicine; PCP Family Medicine
DX: S42.291A Other displaced fracture of upper end of right humerus, initial encounter for closed fracture (principal); W19.XXXA Unspecified fall, initial encounter
CPT/HCPCS: 73030; 93005; 99283; 99285

== ENCOUNTER 2025-07-02 19:17 | Emergency (ER) | payer MEDICARE, SELFPAY ==
[2025-07-02] VITALS (10 sets, daily range): BP systolic 138–170; BP diastolic 83–99; PULSE 74–98; RESP 16–20; TEMP 36.9; O2SAT 88–98; BMI 30.1
--- NOTE | 2025-07-02 19:06 | HMH.EDGENADL ---
Discharge Plan Disposition Patient Disposition: Xfer Other Condition: Good Prescriptions Prescriptions: No Action coenzyme Q10 100 mg capsule 100 mg PO DAILY Excedrin Migraine 250-250-65 mg tablet 2 tab PO Q4-6H PRN (Reason: MIGRAINES) acetaminophen 500 mg capsule 1,000 mg PO ONCE chlorpheniramine maleate [Allergy Relief(chlorpheniramn)] 4 mg tablet 4 mg PO Q8H PRN (Reason: ALLERGIES) Rx Instructions: do not exceed 2 doses per 24 hrs meloxicam 15 mg tablet 15 mg PO DAILY methocarbamol 500 mg tablet 500 mg PO Q8H PRN (Reason: muscle spasm) Qty: 30 1RF lisinopril-hydrochlorothiazide 20-12.5 mg Tablet 1 tab PO DAILY gabapentin 300 mg Capsule 300 mg PO BID pravastatin 40 mg tablet 40 mg PO HS omeprazole 40 mg capsule,delayed release(DR/EC) 40 mg PO BID ferrous sulfate [Iron (ferrous sulfate)] 325 mg (65 mg iron) tablet 325 mg PO .qod Rx Instructions: Take 1 tab every other day oxycodone 5 mg tablet 5 mg PO Q6H PRN (Reason: pain) 3 Days Qty: 12 0RF oxycodone 5 mg tablet 5 mg PO Q6H PRN (Reason: pain) Qty: 8 0RF Referrals Follow up/Referrals: Placido Mercado [Primary Care Provider, Medical] - See instructions Activity Restrictions/Add. Instructions Additional Instructions/Restrictions: Stable for transfer to . Clinical Impressions Clinical Impression: Bowel obstruction, Abdominal pain, Nausea Print Language Print Language: Tajik Discharge ED Provider: Kaylan Maurice General Adult HPI <Thuy Bradshaw - Last Filed: 07/02/25 21:47> General Chief complaint: Weakness Stated complaint: Nausea Time Seen by Provider: 07/02/25 19:22 History of Present Illness HPI narrative: 79-year-old female presents emergency department complaints of nausea, vomiting, generalized malaise with stuffy nose for the past couple days. She denies diarrhea, fevers. He also reports she has had intermittent abdominal pain. Related Data Home Medications ?Medication ?Instructions ?Recorded ?Confirmed gabapentin 300 mg capsule 300 mg PO BID Restless leg syndrome 12/11/22 06/17/25 lisinopril 20 1 tab PO DAILY High blood pressure 12/11/22 06/17/25 mg-hydrochlorothiazide 12.5 mg tablet Held on 12/14/22. Instructions: Resume on 12/16/22. omeprazole 40 mg capsule,delayed 40 mg PO BID Acid reflux 12/12/22 06/17/25 release pravastatin 40 mg tablet 40 mg PO HS Cholesterol 12/12/22 06/17/25 ferrous sulfate 325 mg (65 mg 325 mg PO .qod Supplement 02/07/23 06/17/25 iron) tablet (Iron (ferrous sulfate)) acetaminophen 500 mg capsule 1,000 mg PO ONCE 04/05/23 06/17/25 [id number] 250 2 tab PO Q4-6H PRN MIGRAINES 04/05/23 06/17/25 mg-250 mg-65 mg tablet (Excedrin Migraine) chlorpheniramine maleate 4 mg 4 mg PO Q8H PRN ALLERGIES 04/05/23 06/17/25 tablet (Allergy Relief (chlorpheniramine)) coenzyme Q10 100 mg capsule 100 mg PO DAILY 04/05/23 06/17/25 meloxicam 15 mg tablet 15 mg PO DAILY 05/17/23 06/17/25 Previous Rx's ?Medication ?Instructions ?Recorded methocarbamol 500 mg tablet 500 mg PO Q8H PRN muscle spasm #30 08/22/24 tabs oxycodone 5 mg tablet 5 mg PO Q6H PRN pain 3 days #12 12/29/24 tabs oxycodone 5 mg tablet 5 mg PO Q6H PRN pain #8 tabs 06/16/25 Allergies Allergy/AdvReac Type Severity Reaction Status Date / Time No Known Allergies Allergy Verified 06/17/25 14:46 [facility] <Thuy Bradshaw - Last Filed: 07/02/25 21:47> [facility] Disclaimer: The information contained in this section may have been updated after the patient was seen, as this information can be updated by other users. Medical History Hammertoe of left foot Left foot drop History of back pain Osteoarthritis History of gastroesophageal reflux (GERD) Hemorrhoid Hyperlipidemia Hypertension History of anemia Cataract Surgical History History of colonoscopy Family History Other Family history of diabetes mellitus type II Family history of hyperlipidemia Family history of hypertension Family history of leukemia Social History Smoking Status: Never smoker alcohol intake: never substance use type: denies use current occupational status: other Travel in the last 8 weeks?: None household members: children housing: house lives independently: No marital status: well-balanced diet: daily or most days physical activity: none Have you lived/traveled outside US in past 30 days?: No Contact w/someone who lives/traveled outside US past 30 days?: No Exposure to someone with infectious disease in past 14 days?: No Do you have a fever (greater than 100.4 F or 38 C)?: No Have you tested positive for COVID-19?: No Exposed to someone with COVID-19 in past 14 days?: No Do you have a sore throat?: No Do you have a cough?: No Do you have any weakness?: No Do you have any diarrhea?: No Are you experiencing any unusual bleeding?: No Do you have any muscle aches/pain?: No Do you have any abdominal pain?: No Are you experiencing loss of taste or smell?: No Other Medical History Have you received the Flu Vaccine for this season: No Have you received the Pneumonia Vaccine: Yes <Thuy Augustine - Last Filed: 07/02/25 21:47> ROS Obtained: Yes other Constitutional Constitutional: Reports body ache and Reports malaise ENT Ears, Nose, Mouth, and Throat: Reports nasal congestion Gastrointestinal Gastrointestingal: Reports abdominal pain, nausea and vomiting Physical Exam <Thuy Bradshaw - Last Filed: 07/02/25 21:47> Narrative Physical exam: General: Awake, aware, in no acute distress HEENT: Normocephalic, no evidence of trauma CV: RRR, no murmurs, rubs, or gallops Pulm: CTA bilaterally with no rhonchi, rales, wheezes ABD: Patient with normal active bowel sounds in all quadrants. Patient's abdomen seems mildly distended on exam. She denies pain on palpation. Psych, appropriate mood and affect Musculoskeletal: Patient arrives to the emergency department with a sling on her right upper extremity. She was recently seen in this ER and diagnosed with a humerus fracture at that time. Sensation intact with 2+ pulses with brisk capillary refill General General appearance: alert Respiratory Respiratory exam: Present normal lung sounds bilaterally Cardiovascular Cardiovascular exam: Present regular rate Neurological Exam Neurological exam: Present alert Medical Decision Making <Thuy Bradshaw - Last Filed: 07/02/25 21:47> Medical Records Screening: Per USPSTF and CDC recommendations, given the prevalence of disease in our region, it is our hospital?s policy to screen for HIV and viral Hepatitis for all patients aged 18 and over and those with ongoing risk factors. [place] Inquiry Pt receiving controlled substance: No Vital Signs: 07/02/25 19:19 07/02/25 19:48 07/02/25 20:36 Temperature 98.5 F Temperature Source Oral Pulse Rate 98 H Pulse Rate [Radial] 93 H Respiratory Rate 16 19 Blood Pressure 139/86 Blood Pressure [Right Arm] 152/91 H Blood Pressure Mean [Right Arm] 111 Blood Pressure Position [Right Arm] Supine 02 Sat by Pulse Oximetry 98 88 L 97 Oxygen Delivery Method Room Air Room Air 07/02/25 21:01 07/02/25 21:35 07/02/25 22:00 Temperature Temperature Source Pulse Rate 91 H 94 H 95 H Pulse Rate [Radial] Respiratory Rate 17 20 19 Blood Pressure 168/84 H 163/83 H 154/94 H Blood Pressure [Right Arm] Blood Pressure Mean [Right Arm] Blood Pressure Position [Right Arm] 02 Sat by Pulse Oximetry 96 92 L 92 L Oxygen Delivery Method 07/02/25 22:30 Temperature Temperature Source Pulse Rate 98 H Pulse Rate [Radial] Respiratory Rate 19 Blood Pressure 170/99 H Blood Pressure [Right Arm] Blood Pressure Mean [Right Arm] Blood Pressure Position [Right Arm] 02 Sat by Pulse Oximetry 92 L Oxygen Delivery Method Lab Data Lab Results 07/02/25 19:17: WBC 8.8, RBC 3.84 L, Hgb 9.6 L, Hct 30.4 L, MCV 79.2 L, MCH 25.0 L, MCHC 31.6 L, RDW 17.6 H, Plt Count 553 H, MPV 8.6, Neut % (Auto) 86.7 H, Lymph % (Auto) 6.5 L, [place] % (Auto) 5.9, Eos % (Auto) 0.2, Baso % (Auto) 0.5, Neut # (Auto) 7.7, Lymph # (Auto) 0.6 L, [place] # (Auto) 0.5, Eos # (Auto) 0.0, Baso # (Auto) 0.0, Sodium 128 L, Potassium 3.8, Chloride 91 L, Carbon Dioxide 28, Anion Gap 12.8, BUN 25 H, Creatinine 1.00, Estimated Creat Clear 57, Estimated GFR 54 L, Est GFR ( Amer) 65, Glucose 142 H, Calcium 10.4 H, Magnesium 1.4 L, Total Bilirubin 0.5, AST 28, ALT 18, Alkaline Phosphatase 129 H, Total Protein 7.4, Albumin 3.6, Globulin 3.8 H, Albumin/Globulin Ratio 0.9 L, Lipase 59 07/02/25 19:34: SARS-CoV-2 (PCR) Not detected, Influenza A Untype (PCR) Not detected, Influenza Type B (PCR) Not detected 07/02/25 19:48: Urine Color Yellow, Urine Appearance Slightly cloudy, Urine pH 6.0, Ur Specific [place] 1.015, Urine Protein Negative, Urine Glucose (UA) Negative, Urine Ketones Trace, Urine Blood Negative, Urine Nitrate Negative, Urine Bilirubin Negative, Urine Urobilinogen 1.0, Ur Leukocyte Esterase 1+ A, Urine RBC 3-5, Urine WBC 10-20, Ur Squamous Epith Cells 20-50, Urine Bacteria 4+, Urine Mucus 1+ 07/02/25 21:26: Urine Color Yellow, Urine Appearance Clear, Urine pH 6.5, Ur Specific [place] <= 1.005, Urine Protein Negative, Urine Glucose (UA) Negative, Urine Ketones Trace, Urine Blood Negative, Urine Nitrate Negative, Urine Bilirubin Negative, Urine Urobilinogen 0.2, Ur Leukocyte Esterase Negative, Urine RBC 3-5, Urine WBC 5-10, Ur Squamous Epith Cells 5-10, Urine Bacteria 2+ 07/02/25 19:17 07/02/25 19:17 Orders (Tests/Meds): ED MEDICATIONS Generic Name Dose Route Start Last Admin Trade Name Freq PRN Reason Stop Dose Admin Sodium Chloride 10 ml 07/02/25 20:30 07/02/25 20:32 Sodium Chloride 0.9% 10ml Syr (Rad Only) IV 08/01/25 20:29 10 ml NEEDED PRN Administration Maintain IV Site Discontinued Medications Generic Name Dose Route Start Last Admin Trade Name Nelson PRN Reason Stop Dose Admin Sodium Chloride 1,000 mls @ 999 mls/hr 07/02/25 20:09 07/02/25 22:07 Sod Chlor 0.9% 1000ml Bag IV 07/02/25 21:09 Infused .Q1H1M ONE Infusion Iopamidol 75 ml 07/02/25 20:30 07/02/25 20:32 Iopamidol-370 (76%);100ml Bottle IV 07/02/25 20:31 75 ml ONCE ONE Administration Magnesium Oxide 400 mg 07/02/25 20:09 07/02/25 20:21 Magnesium Oxide 400mg Tablet PO 07/02/25 20:10 400 mg DAILY ONE Administration Ondansetron HCl 4 mg 07/02/25 19:12 07/02/25 19:30 Ondansetron 4mg/2ml Vial IV 07/02/25 19:13 4 mg ONCE ONE Administration ORDERS Category Date Time Status CT abdomen pelvis w con Stat Cat Scan 07/02/25 19:27 Completed XR chest portable Stat Exams 07/02/25 20:00 Completed CBC w/Auto Diff [Complete Blood Count Auto Diff] Stat Lab 07/02/25 19:17 Completed CMP [Comprehensive Metabolic Panel] Stat Lab 07/02/25 19:17 Completed Lactic Acid Stat Lab 07/02/25 21:27 Ordered Lipase Stat Lab 07/02/25 19:17 Completed Magnesium Stat Lab 07/02/25 19:17 Completed Rapid PCR Covid and Flu A/B Stat Lab 07/02/25 19:34 Completed Urinalysis and Microscopic Stat Lab 07/02/25 19:48 Completed Urinalysis and Microscopic Stat Lab 07/02/25 21:26 Completed Urine Culture Stat Micro 07/02/25 19:48 Received Medical Decision Narrative: Initial impression of presenting illness: 79-year-old female presents emergency department complaints of generalized malaise, body aches, nasal congestion, nausea, vomiting, intermittent abdominal pain for the past couple of days. She reports her last bowel movement was earlier this date. She denies fevers. She arrives with a sling on her right upper extremity from a emergency fracture that was diagnosed at this facility a couple weeks ago. Reports she has followed up with orthopedics. She also reports taking oxycodone for pain management. Differential diagnosis includes but is not limited to: Gastritis, gastroenteritis, urinary tract infection, constipation, dehydration Patient arrives hemodynamically stable, afebrile, without respiratory distress with vital signs interpreted by myself. Initial physical exam reveals normal active bowel sounds on auscultation of abdomen. No tenderness noted on palpation. Abdomen does appear mildly distended. Rest of exam is unremarkable Initial diagnostic plan: Laboratory studies including urinalysis, COVID and flu swab, normal saline bolus for hydration, Zofran for nausea, CT of abdomen pelvis with IV contrast Results from initial plan were reviewed and interpreted by myself, pertinent positives include: Magnesium 1.4, sodium 128, rest of laboratory studies were nonactionable. Patient's COVID and flu swabs are negative. Patient's urinalysis was positive for 10-20 white blood cells per high-power field as well as 3-5 red blood cells however there was 20-50 squamous cells per high-power field with with 4+ bacteria. Sample is likely contaminated and did not feel that it represents a true urinary tract infection. We are attempting to call recollect another urine sample at this time. Patient CT shows a high-grade bowel obstruction with a transition point at the splenic flexure of the colon. Interventions in the ED: Patient was given normal saline bolus for hydration as well as Zofran for nausea. She was also given magnesium oxide for supplementation. Patient was made aware of the results and the findings, upon reevaluation patient has remained stable throughout stay, symptoms remained stable. Upon reevaluation patient is resting comfortably in her bed. She has not had any episodes of vomiting during her ER stay. Consultation/discussion with other physicians: Spoke with surgeon Dr. Vasquez at this facility to review patient's presenting complaint and workup findings. He reports that he is not comfortable keeping patient at this facility due to her history of previous ischemic bowel. We then contacted [facility] as patient has been seen at their facility for GI complaints in the past. I spoke with Dr. Agrawal at the transfer center who informs me that they are currently on divert and only excepting surgical emergencies. Handoff care given to ED attending Dr. Maurice pending accepting transfer to an outlying facility. Dr. Maurice myself of also gone to bedside to speak with patient and family regarding workup findings. <Kaylan Maurice, DO - Last Filed: 07/02/25 22:48> Vital Signs: 07/02/25 19:19 07/02/25 19:48 07/02/25 20:36 Temperature 98.5 F Temperature Source Oral Pulse Rate 98 H Pulse Rate [Radial] 93 H Respiratory Rate 16 19 Blood Pressure 139/86 Blood Pressure [Right Arm] 152/91 H Blood Pressure Mean [Right Arm] 111 Blood Pressure Position [Right Arm] Supine 02 Sat by Pulse Oximetry 98 88 L 97 Oxygen Delivery Method Room Air Room Air 07/02/25 21:01 07/02/25 21:35 07/02/25 22:00 Temperature Temperature Source Pulse Rate 91 H 94 H 95 H Pulse Rate [Radial] Respiratory Rate 17 20 19 Blood Pressure 168/84 H 163/83 H 154/94 H Blood Pressure [Right Arm] Blood Pressure Mean [Right Arm] Blood Pressure Position [Right Arm] 02 Sat by Pulse Oximetry 96 92 L 92 L Oxygen Delivery Method 07/02/25 22:30 Temperature Temperature Source Pulse Rate 98 H Pulse Rate [Radial] Respiratory Rate 19 Blood Pressure 170/99 H Blood Pressure [Right Arm] Blood Pressure Mean [Right Arm] Blood Pressure Position [Right Arm] 02 Sat by Pulse Oximetry 92 L Oxygen Delivery Method Lab Data Lab results reviewed: Yes I reviewed the patient's lab results. Lab Results 07/02/25 19:17: WBC 8.8, RBC 3.84 L, Hgb 9.6 L, Hct 30.4 L, MCV 79.2 L, MCH 25.0 L, MCHC 31.6 L, RDW 17.6 H, Plt Count 553 H, MPV 8.6, Neut % (Auto) 86.7 H, Lymph % (Auto) 6.5 L, [place] % (Auto) 5.9, Eos % (Auto) 0.2, Baso % (Auto) 0.5, Neut # (Auto) 7.7, Lymph # (Auto) 0.6 L, [place] # (Auto) 0.5, Eos # (Auto) 0.0, Baso # (Auto) 0.0, Sodium 128 L, Potassium 3.8, Chloride 91 L, Carbon Dioxide 28, Anion Gap 12.8, BUN 25 H, Creatinine 1.00, Estimated Creat Clear 57, Estimated GFR 54 L, Est GFR ( Amer) 65, Glucose 142 H, Calcium 10.4 H, Magnesium 1.4 L, Total Bilirubin 0.5, AST 28, ALT 18, Alkaline Phosphatase 129 H, Total Protein 7.4, Albumin 3.6, Globulin 3.8 H, Albumin/Globulin Ratio 0.9 L, Lipase 59 07/02/25 19:34: SARS-CoV-2 (PCR) Not detected, Influenza A Untype (PCR) Not detected, Influenza Type B (PCR) Not detected 07/02/25 19:48: Urine Color Yellow, Urine Appearance Slightly cloudy, Urine pH 6.0, Ur Specific [place] 1.015, Urine Protein Negative, Urine Glucose (UA) Negative, Urine Ketones Trace, Urine Blood Negative, Urine Nitrate Negative, Urine Bilirubin Negative, Urine Urobilinogen 1.0, Ur Leukocyte Esterase 1+ A, Urine RBC 3-5, Urine WBC 10-20, Ur Squamous Epith Cells 20-50, Urine Bacteria 4+, Urine Mucus 1+ 07/02/25 21:26: Urine Color Yellow, Urine Appearance Clear, Urine pH 6.5, Ur Specific [place] <= 1.005, Urine Protein Negative, Urine Glucose (UA) Negative, Urine Ketones Trace, Urine Blood Negative, Urine Nitrate Negative, Urine Bilirubin Negative, Urine Urobilinogen 0.2, Ur Leukocyte Esterase Negative, Urine RBC 3-5, Urine WBC 5-10, Ur Squamous Epith Cells 5-10, Urine Bacteria 2+ Orders (Tests/Meds): ED MEDICATIONS Generic Name Dose Route Start Last Admin Trade Name Nelson PRN Reason Stop Dose Admin Sodium Chloride 10 ml 07/02/25 20:30 07/02/25 20:32 Sodium Chloride 0.9% 10ml Syr (Rad Only) IV 08/01/25 20:29 10 ml NEEDED PRN Administration Maintain IV Site Discontinued Medications Generic Name Dose Route Start Last Admin Trade Name Nelson PRN Reason Stop Dose Admin Sodium Chloride 1,000 mls @ 999 mls/hr 07/02/25 20:09 07/02/25 22:07 Sod Chlor 0.9% 1000ml Bag IV 07/02/25 21:09 Infused .Q1H1M ONE Infusion Iopamidol 75 ml 07/02/25 20:30 07/02/25 20:32 Iopamidol-370 (76%);100ml Bottle IV 07/02/25 20:31 75 ml ONCE ONE Administration Magnesium Oxide 400 mg 07/02/25 20:09 07/02/25 20:21 Magnesium Oxide 400mg Tablet PO 07/02/25 20:10 400 mg DAILY ONE Administration Ondansetron HCl 4 mg 07/02/25 19:12 07/02/25 19:30 Ondansetron 4mg/2ml Vial IV 07/02/25 19:13 4 mg ONCE ONE Administration ORDERS Category Date Time Status CT abdomen pelvis w con Stat Cat Scan 07/02/25 19:27 Completed XR chest portable Stat Exams 07/02/25 20:00 Completed CBC w/Auto Diff [Complete Blood Count Auto Diff] Stat Lab 07/02/25 19:17 Completed CMP [Comprehensive Metabolic Panel] Stat Lab 07/02/25 19:17 Completed Lactic Acid Stat Lab 07/02/25 21:27 Ordered Lipase Stat Lab 07/02/25 19:17 Completed Magnesium Stat Lab 07/02/25 19:17 Completed Rapid PCR Covid and Flu A/B Stat Lab 07/02/25 19:34 Completed Urinalysis and Microscopic Stat Lab 07/02/25 19:48 Completed Urinalysis and Microscopic Stat Lab 07/02/25 21:26 Completed Urine Culture Stat Micro 07/02/25 19:48 Received Medical Decision Narrative: Initial impression of presenting illness: 79-year-old female presents emergency department complaints of generalized malaise, body aches, nasal congestion, nausea, vomiting, intermittent abdominal pain for the past couple of days. She reports her last bowel movement was earlier this date. She denies fevers. She arrives with a sling on her right upper extremity from a emergency fracture that was diagnosed at this facility a couple weeks ago. Reports she has followed up with orthopedics. She also reports taking oxycodone for pain management. Differential diagnosis includes but is not limited to: Gastritis, gastroenteritis, urinary tract infection, constipation, dehydration Patient arrives hemodynamically stable, afebrile, without respiratory distress with vital signs interpreted by myself. Initial physical exam reveals normal active bowel sounds on auscultation of abdomen. No tenderness noted on palpation. Abdomen does appear mildly distended. Rest of exam is unremarkable Initial diagnostic plan: Laboratory studies including urinalysis, COVID and flu swab, normal saline bolus for hydration, Zofran for nausea, CT of abdomen pelvis with IV contrast Results from initial plan were reviewed and interpreted by myself, pertinent positives include: Magnesium 1.4, sodium 128, rest of laboratory studies were nonactionable. Patient's COVID and flu swabs are negative. Patient's urinalysis was positive for 10-20 white blood cells per high-power field as well as 3-5 red blood cells however there was 20-50 squamous cells per high-power field with with 4+ bacteria. Sample is likely contaminated and did not feel that it represents a true urinary tract infection. We are attempting to call recollect another urine sample at this time. Patient CT scan reviewed and interpreted by myslef and shows a high-grade bowel obstruction with a transition point at the splenic flexure of the colon. Interventions in the ED: Patient was given normal saline bolus for hydration as well as Zofran for nausea. She was also given magnesium oxide for supplementation. Patient was made aware of the results and the findings, upon reevaluation patient has remained stable throughout stay, symptoms remained stable. Upon reevaluation patient is resting comfortably in her bed. She has not had any episodes of vomiting during her ER stay. Consultation/discussion with other physicians: Spoke with surgeon Dr. Vasquez at this facility to review patient's presenting complaint and workup findings. He reports that he is not comfortable keeping patient at this facility due to her history of previous ischemic bowel. We then contacted [facility] as patient has been seen at their facility for GI complaints in the past. I spoke with Dr. Agrawal at the transfer center who informs me that they are currently on divert and only excepting surgical emergencies. Spoke to [place], unable to accept transfer. Handoff care given to ED attending Dr. Maurice pending accepting transfer to an outlying facility. Dr. Maurice myself of also gone to bedside to speak with patient and family regarding workup findings. Patient was accepted to the [facility] emergency department for bowel obstruction patient was accepted by Dr. Campa. Will be sent by S in stable condition. Critical Care <Thuy Bradshaw - Last Filed: 07/02/25 21:47> Critical Care Time Critical Care Time: No
--- OUTSIDE RECORDS SUMMARY | 2025-07-02 19:24 | XMS_ITS | Clinical Summary ---
[facility] Address [address] [place] [address] Care Team Providers Care Rolfer Name Role Phone Placido Mercado MD Primary Care Provider [phone] Allergies No known active allergies Medications lisinopril-hydr [...] 1 capsule by mouth Daily. Active Coenzyme H64-Aydytjd E (QUNOL ULTRA COQ10 PO) Take 100 [...] drink = 0.6 oz pur e alcohol) [facility] Utilities Answer Date Recorded In the [...] GED or equivalent No 02/04/2025 Preferred Language Central African 02/04/2025 PHQ-2 Answer Date Recorded Patient Health [...] 11/08/1966 ZOSTER VACCINE (1 of 2) 11/08/1997 COVID-19 Vaccine (3 - Modern a risk series) 08/11/2021 07/14/2021, 12/11/2020, 11/10/2020 Pneumococcal Vaccine 50+ (2 of 2 - PCV) 02/18/2022 02/18/2021 ANNUAL WELLNESS VISIT 05/13/2022 RSV Vaccine - Adults (1 - 1- dose 75+ series) 11/08/2022 INFLUENZA VACCINE 04/04/2025 HEPATITIS C SCREENING Completed 10/15/2023, 024 COLON CANCER SCREENING 5 YEA R SIGMOIDOSCOPY Discontinued 10/18/2023 COLORECTAL CANCER SCREENING Discontinued COLOGUARD Discontinued COLONOSCOPY Discontinued CT COLONOGRAPHY Discontinued FECAL OCCULT BLOOD TEST Discontinued FIT Testing (1 year) Discontinued Goals Goal Patient Goal Type Associated Problems Recent Progress Patient-Stated? Author Autogenerat ed Goal Care Plan Autogenerated Problem [employer] Devices Implanted Type Area Counter Help Device Identifier Shelf Expiration Date Model / Serial / Lot Hemost Abs Surgifoam Sz100 8x12 10mm - [id number] Implanted:Qt y: 1 on 05/16/2022 by Vini Peterson MD at [facility] Implant N/A: Spine Lumbar ETHICON DIV OF J AND J 1974 / / Kt Seal Hemos Abs Floseal Matrx Fast/Prep 10ml - [id number] Implanted:Qt y: 1 on 05/16/2022 by Vini Peterson MD at [facility] Implant N/A: Spine Lumbar [employer] [id number] 02/06/2024 [id number] / / [id number] Allogr Bone Vivigen Celluar Matrx Formable 5cc - [id number] Implanted:Qt y: 1 on 05/16/2022 by Vini Peterson MD at [facility] Implant N/A: Spine Lumbar [facility] 03/14/2023 [id number] / / Spacr Tpal Peek [id number] - [id number] Implanted:Qt y: 1 on 05/16/2022 by Vini Peterson MD at [facility] Implant N/A: Spine Lumbar DEPUY SPINE [id number] / / Scrw Viper Inn[address] - [id number] Implanted:Qt y: 4 on 05/16/2022 by Vini Peterson MD at [facility] Implant N/A: Spine Lumbar DEPUY SPINE [id number] / / Enrike Prebnt Spine Expedium Ti 5.5x40mm - [id number] Implanted:Qt y: 2 on 05/16/2022 by Vini Peterson MD at [facility] Implant N/A: Spine Lumbar DEPUY SPINE [id number] / / Scrw Expedium Pa Ti 6x50mm - [id number] Implanted:Qt y: 2 on 05/16/2022 by Vini Peterson MD at [facility] Implant N/A: Spine Lumbar DEPUY SPINE [id number] / / Scrw Expedium Pa Ti 6x45mm - [id number] Implanted:Qt y: 2 on 05/16/2022 by Vini Peterson MD at [facility] Implant N/A: Spine Lumbar DEPUY SPINE [id number] / / Hemost Abs Surgifoam Sz100 8x12 10mm - [id number] Implanted:Qt y: 2 on 02/03/2025 by Vini Peterson MD at [facility] Implant N/A: Spine Lumbar ETHICON DIV OF J AND J [id number] 08/05/2028 1974 / / [id number] Description:Given to the bret jesus arellano Wax Bone Hemo Lukens Sharpoint 2.5gm Wht - [id number] Implanted:Qt y: 1 on 02/03/2025 by Vini Peterson MD at [facility] Implant N/A: Spine Lumbar [employer] JAIDA [id number] 02/06/2029 [id number] / / [id number] Description:Given to the bret arellano Allogrft Bone Vivigen Celluar Matrx Formable 5cc - [id number] - [id number] Implanted:Qt y: 1 on 02/03/2025 by Vini Peterson MD at [facility] Implant N/A: Spine Lumbar [employer] [id number] 01/10/2026 [id number] / [id number] / Scrw Gurvinder Viper Fen Pa Ti 7x50mm - [id number] Implanted:Qt y: 2 on 02/03/2025 by Vini Peterson MD at [facility] Implant N/A: Spine Lumbar DEPUY SPINE [id number] / / Scrw Gurvinder Viper Fen Pa Ti 7x45mm - [id number] Implanted:Qt y: 2 on 02/03/2025 by Vini Peterson MD at [facility] Implant N/A: Spine Lumbar DEPUY SPINE [id number] / / Enrike Prebnt Spine Expedium Ti 5.5x40mm - [id number] Implanted:Qt y: 2 on 02/03/2025 by Vini Peterson MD at [facility] Implant N/A: Spine Lumbar DEPUY SPINE [id number] / / Scrw Viper Inn[address] - [id number] Implanted:Qt y: 4 on 02/03/2025 by Vini Peterson MD at [facility] Implant N/A: Spine Lumbar DEPUY SPINE [id number] / / Cmt Bone Confidence/P ls Ds Kt 11cc - [id number] Implanted:Qt y: 1 on 02/03/2025 by Vini Peterson MD at [facility] Implant N/A: Spine Lumbar DEPUY SPINE [id number] / / Kt Seal Hemos Abs Floseal Matrx Fast/Prep 10ml - [id number] Implanted:Qt y: 1 on 02/03/2025 by Vini Peterson MD at [facility] Implant N/A: Spine Lumbar [facility] [id number] 07/30/2026 [id number] / / [id number] Description:Given to the bret lee field Additional Health Concerns Active Problems Noted Date Diagnosed Date Autogenerated Problem 03/06/2025 Insurance [facility] MEDICARE ADVANTAGE HUMAN MEDICARE ADVANTAGE PPO Advance Directives Documents on File Type Date Recorded 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
--- OUTSIDE RECORDS SUMMARY | 2025-07-02 19:24 | XMS_ITS | Clinical Summary ---
Author Organization [facility] Address [address] [place] [address] Care Team Providers Care Cash Processor Name Role Phone Placido Mercado MD Primary Care Provider [phone] Allergies No known active allergies Medications gabapentin [...] if needed for headaches. Active HYDROcodone-edith taminophen ([place]) 7.5-325 MG tablet 1 tablet (7.5 mg [...] place to sleep or slept in a fdc (including now)? No 10/16/2023 Utilities Answer Date [...] r (1 - 1-dose 75+ series) 11/08/2022 QBA-HVNAB-21 Vaccine ( - 2024- season) 2025 07/14/2021, [...] medications. Staff Staff Role [facility] Endo Acid Condenser Jade Vale, FRONT DESK Sara Shepard, RN Endo Nurse Dipika Najera, [...] of bowel preparation was evaluated using the [place] Bowel Preparation Scale with scores of: left [...] IgM Negative Negative 10/15/2023 6:39 AM EST [facility] Hepatitis B Core Antibody IgM Negative Negative 10/15/2023 6:39 AM EST [facility] Blood Venous blood specimen / Unknown Venipuncture / Unknown 10/15/2023 12:57 AM EST 10/15/2023 1:14 AM EST us Patricia Barkley APRN, YADI LAB BLOOD ORDERABLES Liliya l Result Performing Organization Address [facility] Co de Phone Number [facility] [address] [place] [address] * (ABNORMAL) Hemoglobin A1c (10/13/2023 11:49 PM EST) Hemoglobin A1c 5.8(H) <5.7 % 10/14/2023 3:36 AM EST [facility] Blood Venous blood specimen / [...] Adults <6.0% Children and Adolescents <7.5% Source: [place] Diabetes Association. Standards of medical care in diabetes,2017. Diabetes Care.2017:40 (suppl 1):S1-S135. HbA1c assay performed by an ion-exchange chromatography method that is certified traceable to the DCCT. us Hesham Whiteside MD LAB BLOOD ORDERABLES Final Re sult [facility] [address] [place] [address] from Last 3 Months or Most Recently Relevant to Health Maintenance Insurance [employer] MEDICARE Advance Directives * Full Code (Latest Code Status on File) Date Activated Date Inactivated Comments 10/18/2023 4:44 PM 10/23/2023 5:27 PM Question Answer Comments Patient has decision-making capacity? Yes Care Teams Cash Processor Relationship Specialty Start Date End Date Placido Mercado MD [facility] [place] [address] PCP - General 10/16/23
--- OUTSIDE RECORDS SUMMARY | 2025-07-02 19:24 | XMS_ITS | Encounter Summary ---
Author Organization Healthcare Address [address] [place] [address] Care Team Providers Care Content Developer Name Role Phone Placido Mercado MD Primary Care Provider [phone] Encounter Details Date Type Department Care Team (Late st Contact Info) Description 10/16/2023 Lab Requisition [facility] [address] [place] [address] Jonas Tony MD [address] [facility] [address] [place] [address] Encounter for general adult medical [...] ERAL ORDERABLES Final Result Performing Organization Address City/State/[facility] Co de Phone Number [facility] [address] [place] [address] documented in this encounter Visit Diagnoses Diagnosis Encounter for general adult medical examination without abnormal findings documented in this encounter Additional Health Concerns Assessment Noted Time A Body Mass Index follow-up plan has been documented for the patient 10/23/2023 2:41 PM EST documented as of this encounter Care Teams Content Developer Relationship Specialty Start Date End Date Placido Mercado MD [address] [place] [address] PCP - General 10/16/23 documented as of this encounter
--- OUTSIDE RECORDS SUMMARY | 2025-07-02 19:24 | XMS_ITS ---
Author Organization Unknown TREATMENT PLAN Planned [facility] Start Date Provider Encounter for Check-up [phone] [facility]
--- NOTE | 2025-07-02 19:27 | CT_ITS ---
PROCEDURE INFORMATION: Exam: CT Abdomen And Pelvis With Contrast Exam date and time: 07/02/2025 8:30 PM Age: 79 years old Clinical indication: Nausea and vomiting; Additional info: N/v TECHNIQUE: Imaging protocol: Computed tomography of the abdomen and pelvis with contrast. Radiation optimization: All CT scans at this facility use at least one of these dose optimization techniques: automated exposure control; mA and/or kV adjustment per patient size (includes targeted exams where dose is matched to clinical indication); or iterative reconstruction. Contrast material: ISOVUE; Contrast volume: 75 ml; Contrast route: IV; COMPARISON: CT ANGIO ABDOMEN PELVIS 10/13/2023 5:26 PM FINDINGS: Coronary arteries: Coronary artery calcifications. Diaphragm: Moderate to large hiatal hernia. Small amount of free fluid in the hiatal hernia. Liver: Low attenuation hepatic lesions measuring up to 15 mm in diameter are incompletely characterized, but are likely cysts. No followup imaging is recommended. Gallbladder and biliary ducts: Normal. No calcified stones. No ductal dilation. Pancreas: Mild pancreatic atrophy. Spleen: Normal. No splenomegaly. Adrenal glands: Normal. No mass. Kidneys and ureters: Normal. No hydronephrosis. Stomach and bowel: The small bowel and colon are dilated with a transition point at the splenic flexure colon example image 36 series 3. Mild sigmoid diverticulosis without diverticulitis. Appendix: No evidence of appendicitis. Intraperitoneal space: Unremarkable. No free air. No significant fluid collection. Vasculature: The arteries demonstrate mild to moderate atherosclerotic disease. Lymph nodes: Unremarkable. No enlarged lymph nodes. Urinary bladder: Unremarkable as visualized. Reproductive: There is a 5.5 cm left ovarian cystic structure, previously 3 cm. Bones/joints: Chronic left pelvic fractures. Anterolisthesis of L4 over L5 status post fusion. Hardware appears intact. Soft tissues: Posterior soft tissue scarring and edema. There is at least moderate edema in the soft tissues around the right elbow. This is partially visible. Other findings: Stigmata of old granulomatous disease. IMPRESSION: 1. The small bowel and colon are dilated with a transition point at the splenic flexure colon example image 36 series 3. This is consistent with high-grade bowel obstruction. Recommend direct visualization to exclude obstructing colon malignancy. No free air. 2. There is at least moderate edema in the soft tissues around the right elbow. This is partially visible. Please exclude cellulitis. 3. There is a 5.5 cm left ovarian cystic structure, previously 3 cm. Recommend outpatient follow-up ultrasound versus contrast-enhanced MRI to exclude malignancy. 4. THIS REPORT CONTAINS FINDINGS THAT MAY BE CRITICAL TO PATIENT CARE. The findings were verbally communicated via telephone conference with Dr. Maurice at 9:21 PM EDT on 07/02/2025. The findings were acknowledged and understood.
[2025-07-02] MEDS: ONDANSETRON 4MG/2ML VIAL 4 MG IV (19:30)
[2025-07-02 19:41] LABS: Coronavirus 19, PCR Not Detected (NotDetected); Influenza A, PCR Not Detected (NotDetected); Influenza B, PCR Not Detected (NotDetected)
[2025-07-02 19:49] LABS: Hematocrit 30.4 % (37.0-47.0); Hemoglobin 9.6 g/dL (12.2-16.2); Immature Granulocytes % 0.2 %; Mean Corpuscular HGB Conc 31.6 g/dL (31.8-35.4); Mean Corpuscular Hemoglobin 25.0 pg (27.0-31.2); Mean Corpuscular Volume 79.2 fl (81-99); Nucleated Red Blood Cells % 0 %; Platelet Count 553 K/mm3 (142-424); Red Blood Count 3.84 M/mm3 (4.20-5.40); Red Cell Distribution Width-SD 50.4 fL; White Blood Count 8.8 K/mm3 (4.8-10.8)
--- NOTE | 2025-07-02 19:50 | PC.NURSE ---
pt assisted to and from restroom to provide urine for testing. Pt placed in wheelchair, still transporting from bed to chair O2 sats ranging from 88-89% on RA Provider aware and also made aware that family is now at the bedside and wishes to speak with her
[2025-07-02 19:57] LABS: Microscopic, Urine URINE MICROSCOPIC (MICROSCOPIC)
--- NOTE | 2025-07-02 20:00 | XR_ITS ---
PROCEDURE INFORMATION: Exam: XR Chest Exam date and time: 07/02/2025 8:23 PM Age: 79 years old Clinical indication: Shortness of breath; Additional info: SOA TECHNIQUE: Imaging protocol: Radiologic exam of the chest. Views: 1 view. COMPARISON: CR XR CHEST PORTABLE 10/13/2023 5:49 PM FINDINGS: Lungs: Low lung volumes with associated vascular crowding and bibasilar atelectasis. Pleural spaces: Unremarkable. No pleural effusion. No pneumothorax. Heart/Mediastinum: Unremarkable. No cardiomegaly. Bones/joints: Unchanged displaced right humeral neck fracture. Gastrointestinal tract: Gas-filled, dilated colon under the left hemidiaphragm. IMPRESSION: 1. Gas-filled, dilated colon under the left hemidiaphragm. This is compatible with known colonic obstruction. 2. Unchanged displaced right humeral neck fracture.
[2025-07-02 20:03] LABS: Alanine Aminotransferase 18 U/L (12-78); Albumin Level 3.6 g/dl (3.5-5.0); Albumin/Globulin Ratio 0.9 (1.1-1.8); Alkaline Phosphatase 129 U/L (38-126); Anion Gap 12.8 mEq/L (5-15); Aspartate Amino Transferase 28 U/L (14-36); Bilirubin,Total 0.5 mg/dl (0.2-1.3); Blood Urea Nitrogen 25 mg/dl (7-17); Calcium 10.4 mg/dl (8.4-10.2); Carbon Dioxide 28 mmol/L (22.0-30.0); Chloride 91 mmol/L (98-107); Creatinine Clearance Estimated 57 mL/min (50-200); Creatinine,Serum 1.00 mg/dl (0.52-1.04); Estimated Glomerular Filt Rate 54 ml/min (>60); GFR (African American) 65 ML/MIN (>60); Globulin 3.8 g/dL (1.3-3.2); Glucose 142 mg/dl (74-100); Lipase 59 U/L (23-300); Magnesium 1.4 mg/dl (1.6-2.3); Potassium 3.8 mmoL/L (3.5-5.1); Sodium 128 mmol/L (136-145); Total Protein,Serum 7.4 g/dl (6.3-8.2)
[2025-07-02 20:05] LABS: Color,Urine YELLOW (Yellow); Glucose,Urine (UA) Negative (Negative); Ketones,Urine TRACE (Negative); Leukocyte Esterase,Urine 1+ (Negative); PH,Urine 6.0 (5.0-8.5); Protein,Urine Negative (Negative); Specific Gravity, Urine 1.015 (1.005-1.030); Urobilinogen,Urine 1.0 EU/dl (0.2)
[2025-07-02 20:13] LABS: Bilirubin,Urine Negative (Negative)
[2025-07-02 20:18] LABS: Bacteria,Urine 4+ /lpf; Mucus,Urine 1+ /lpf; Squamous Epithelial Cell,Urine 20-50 #/hpf (0-5)
[2025-07-02] MEDS: MAGNESIUM OXIDE 400MG TABLET 400 MG PO (20:21)
[2025-07-02] MEDS: 0.9 % SODIUM CHLORIDE 1000ML 1,000 ML 999 ML IV (20:21)
[2025-07-02] MEDS: SODIUM CHLORIDE 0.9% 10ML SYR (RAD ONLY) 10 ML IV (20:32)
[2025-07-02] MEDS: IOPAMIDOL-370 (76%);100ML BOTTLE 75 ML IV (20:32)
[2025-07-02 21:37] LABS: Microscopic, Urine URINE MICROSCOPIC (MICROSCOPIC)
[2025-07-02 21:40] LABS: Bilirubin,Urine Negative (Negative); Color,Urine YELLOW (Yellow); Glucose,Urine (UA) Negative (Negative); Ketones,Urine TRACE (Negative); Leukocyte Esterase,Urine Negative (Negative); PH,Urine 6.5 (5.0-8.5); Protein,Urine Negative (Negative); Specific Gravity, Urine <= 1.005 (1.005-1.030); Urobilinogen,Urine 0.2 EU/dl (0.2)
--- NOTE | 2025-07-02 21:41 | PC.NURSE ---
Contacted [facility] regarding transfer for this patient. Thuy CALLE on phone with Dr. Agrawal at this time.
--- NOTE | 2025-07-02 22:14 | PC.NURSE ---
Pt reports pain in her legs related to restless leg and anxiety, provider aware of patient request. Waiting for orders.
[2025-07-02 22:23] LABS: Bacteria,Urine 2+ /lpf
--- NOTE | 2025-07-02 22:35 | PC.NURSE ---
Spoke with transfer center, speaking with them at this time.
--- NOTE | 2025-07-02 22:54 | PC.NURSE ---
Dr Maurice at the bedside updating family on POC
--- NOTE | 2025-07-02 22:54 | PC.NURSE ---
Spoke with dede from [facility] to make aware of transfer to ED.
[2025-07-02] MEDS: MORPHINE 2MG/ML SYRINGE 2 MG IV (22:56)
[2025-07-02] MEDS: MIDAZOLAM 2MG/2ML VIAL 0.5 MG IV (22:59)
--- NOTE | 2025-07-02 23:10 | PC.NURSE ---
Report given to Roney at ED
[2025-07-03] VITALS: BP 146/91; PULSE 90; RESP 14; O2SAT 99
[2025-07-03 00:17] VITALS: BP 150/84; PULSE 96; RESP 25; O2SAT 91
[2025-07-03 00:20] VITALS: BP 150/84; PULSE 96; RESP 25; TEMP 36.9; O2SAT 94
== END 2025-07-03 00:21 | disposition other institution (70) ==
PROVIDERS: Nurse Practitioner Family; Emergency Provider Student in an Organized Health Care Education/Training Program; PCP Family Medicine
DX: R10.9 Unspecified abdominal pain (principal); K56.699 Other intestinal obstruction unspecified as to partial versus complete obstruction; R11.0 Nausea; R53.81 Other malaise; E87.1 Hypo-osmolality and hyponatremia; E83.42 Hypomagnesemia
CPT/HCPCS: 71045; 74177; 80053; 81001; 83605; 83690; 83735; 85025; 87086; 87636; 96361; 96374; 96375; 99285; J2250; J2270; J2405; J7030; Q9967

== ENCOUNTER 2025-07-14 14:29 | Outpatient (CLI) | payer MEDICARE, SELFPAY ==
--- OUTSIDE RECORDS SUMMARY | 2025-07-03 01:25 | XMS_ITS | Encounter Summary ---
Author Organization [facility] Address [address] [place] [address] Care Team Providers Care Assistant Professor Name Role Phone Placido Mercado MD Primary Care Provider [phone] Source Comments This information has been disclosed to you from confidential records protectfrom disclosure by state law. You shall make no further disclosure of thisinformation without the specific, written, and informed release of theindividual to whom it pertains, or as otherwise permitted by law. A generalauthorization for the release of medical or other information is not sufficientfor the purposes of the release of HIV test results or diagnoses. [id number] Reason for Referral * Physician/BALTAZAR (Routine) - New Request Specialty Diagnoses / Procedures Referred By Ryan garcia Referred To Contact Gastroenterology Diagnoses Polyp of sigmoid colon, unspecified type Roseline Daigle CNP [address] [facility] [address] Phone: tel: fax: Referral ID Status Reason Start Date Expiration Date V isits Requested Visits Authorized [id number] New Request 07/09/2025 01/05/2026 1 1 Scheduling Instructions Requires colonoscopy due to sigmoid polyp (not removed on IP scope due to AC) and elevated CEA * Surgical (Routine) - New Request Specialty Diagnoses / Procedures Referred By Ryan garcia Referred To Contact Gastroenterology Diagnoses SBO (small bowel obstruction) ([facility]) Procedures Case request GI: SIGMOID FLEXIBLE Juli Roth MD [address] [place] [address] Phone: tel: fax: Referral ID Status Reason Start Date Expiration Date V isits Requested Visits Authorized [id number] New Request 07/07/2025 01/03/2026 1 1 Reason for Visit * Reason Comments Abdominal Pain * Auth/Cert (Routine) Specialty Diagnoses / Procedures Referred By Ryan garcia Referred To Contact Emergency Medicine Diagnoses HIGH GRADE BOWEL OBSTRUCTION [facility] Emergency Department [address] [place] [address] Phone: tel: fax: Referral ID Status Reason Start Date Expiration Date Visits Re quested Visits Authorized [id number] 1 1 Encounter Details Date Type Department Care Team (Latest Contact Info) Description 07/03/2025 2:25 AM EDT - 07/10/2025 3:59 PM EST Hospital Encounter [facility] [address] [place] [address] Mehul aWlsh MD [address] [place] [address] Shannon Campa MD [address] [place] [place] [address] SBO (small bowel obstruction) (CMS-HCC) (Primary Dx); Polyp of sigmoid colon, unspecified type [facility]charge Disposition: [facility] Social History Tobacco Use Types Packs/Day Years Used Date Smoking Tobacco: Never Smokeless Tobacco: Never Tobacco Cessation:Counseling Given: Not Answered Alcohol Use Standard Drinks/Week Comments Not Currently 0 (1 standard drink = 0.6 oz pur e alcohol) [facility] Utilities Answer Date Recorded In the past 12 months has [employer], gas, oil, or water company threatened to shut off services in your home? No 07/05/2025 AUDIT-C Answer Date Recorded Q1: How often do you have a drink containing alcohol? Never 07/05/2025 Q2: How many drinks containi ng alcohol do you have on a typical day when you are drinking? Patient does not drink Q3: How often do you have si x or more drinks on one occasion? Never 07/05/2025 Hunger Vital Sign Answer Date Recorded Within the past 12 months, y ou worried that your food would run out before you got the money to buy more. Never true 07/05/20 25 Within the past 12 months, t he food you bought just didn't last and you didn't have money to get more. Never true 07/05/2025 PRAPARE - Transportation Answer Date Re corded In the past 12 months, has l ack of transportation kept you from medical appointments or from getting medications? No 09/2024 In the past 12 months, has l ack of transportation kept you from meetings, work, or from getting things needed for daily living? No 07/05/2025 Housing Stability Vital Sign Answer David e Recorded In the last 12 months, was t here a time when you were not able to pay the mortgage or rent on time? No 07/05/2025 In the past 12 months, how m any times have you moved where you were living? 0 07/05/2025 At any time in the past 12 m [facility], were you homeless or living in a half-way (including now)? No 07/05/2025 Comments No Sex and Gender Information Value Date Recorded Sex Assigned at Not on file Legal Sex Female 10:34 PM EDT Gender Identity Not on file Sexual Orientation Not on file documented as of this encounter Last Filed Vital Signs Vital Sign Reading Time Taken Comments Blood Pressure 136/73 07/10/2025 11:36 AM EST Pulse 93 07/10/2025 11:36 AM EST Temperature 36.7 C (98.1 F) 07/10/2025 11:36 AM EST Respiratory Rate 16 07/10/2025 11:36 AM EST Oxygen Saturation 98% 07/10/2025 11:36 AM EST Inhaled Oxygen Concentration 98% 07/10/2025 1 1:36 AM EST Weight 77.1 kg (170 lb) 07/08/2025 4:18 PM EST Height 160 cm (5' 3 ) 07/08/2025 4:18 PM EST Body Mass Index 30.11 07/08/2025 4:18 PM EST documented in this encounter Functional Status * AUDIT-C Score Answer Date of Assessment Author 0 07/05/2025 5:00 AM Chad Patricia, ANN * Question Answer Date of Assessment Author Q1: How often do you have a drink containing alcohol? Never 07/05/2025 5:00 AM Debbie Patricia R N Q2: How many drinks containing alcohol do you have on a typical day when you are drinking? Patient does not drink 07/05/2025 5:00 AM Debbie Patricia, ANN Q3: How often do you have six or more drinks on one occasion? Never 07/05/2025 5:00 AM Debbie Patricia R N documented as of this encounter Discharge Summaries * Kaylan Hoover, DIRECTOR OF QUALITY CONTROL - 07/10/2025 3:50 PM EST [facility] Management Discharge Summary Patient name: Gladys Feliciano Patient : 1945 Age: 79 y.o. Gender: female Patient emergency contact: Extended Emergency Contact Information Primary Emergency Contact: alexa feliciano Mobile Relation: Son Secondary Emergency Contact: larry young Mobile Relation: Daughter Attending provider: Shannon Campa MD Primary care physician: Placido Mercado MD The MD has indicated that the patient is ready for discharge. Gladys Feliciano was [facility] and [facility] at [facility] Name: [facility] Number: Report: [phone]; . The patient will be transported by family per patient request. ACS team and Gordon confirm they are okay with family transport. Transfer Mode/Level of Care: Family PASRR/HENS 7000 Completed: N/A DC Summary and DANGELO have been faxed to facility. The plan has been reviewed: Patient/Family Informed of Discharge Plan: Yes Plan Reviewed With Patient, Family, or Significant Other: Yes Patient and or family are aware and in agreement with the discharge plan: Yes Family Member Name and Relationship Notified at Discharge: Larry Young Family Contact Number: [phone] Plan reviewed with and other members of the health care team: Yes Care Plan Completed: Yes No further CM/SW needs. This plan has been reviewed with the multi-disciplinary team. Treatment Preferences Post-Discharge Goals Patient's Post-Discharge goals: Experience effective transition from hospital to SNF Post Acute Care Provider Information: [facility] Facility Name: [facility] SNF Number: Report: [phone]; Community Services at Discharge Community Services at Home post discharge: Not Applicable VINCENT LIRIANO, GENERAL MANAGER [employer] Inpatient Hand Candle Di[employer] Care Management Acute Care Surgery, Surgical Oncology, Colorectal Surgery, Thoracic, Vascular, Gynecology, Gynecology/Oncology, Breast, and Pulmonology Can be reached at [phone] or over [employer] Secure Chat * Roseline Daigle CNP - 07/10/2025 3:15 PM EST [facility] Inpatient Surgery Discharge Summary Patient ID: Gladys Feliciano 1945 CSN:[id number] Admit Service: Acute Care Surgery Admit date: 07/03/2025 Discharge date and time: 07/10/2025 3:15 PM Admitting Physician: Shannon Campa MD Discharge Physician: Diaz Cavazos MD Admission Condition: fair Discharged Condition: fair Indication for Admission: Need for advanced imaging Need for procedural intervention Need for speciality evaluation Primary Admission Diagnosis: SBO (small bowel obstruction) (CMS-HCC) [K56.609] Secondary Admission Diagnoses / Past Medical Problems: Problem List[1] Discharge New Diagnoses/Injuries: Ogilvies vs splenic flexure tapering 5 mm polyp in the sigmoid colon Incidental Findings: No incidentals requiring follow up. Operations/Procedures Performed: Surgical/Procedural Cases on this Admission Case IDs Date Procedure Surgeon Location Status [id number] 07/08/25 SIGMOID FLEXIBLE Vik Le MD ENDOSCOPY Comp Consultants: Gastroenterology Occupational Therapy Physical Therapy Brief Hospital Course: Gladys Feliciano is a 79 y.o. female with past medical history significant for HTN, HLD, GERD/hiatal hernia, chronic back pain, and a provoked DVT who presented on 07/03 with abdominal pain and distention with CT findings concerning for large bowel obstruction vs. Mosier's Syndrome. Ogilvies vs Splenic Flexure Narrowing GI consulted Not a candidate for endoscopic colonic decompression or neostigmine s/p flex sig for concern at splenic flexure with one 5mm polyp but with moderate amount of stool making visualization difficult. No mass was visualized. Diet resumed Continues to have regular BMs. Holding stool softeners and prn only for constipation. Will need outpatient GI to discuss repeat colonoscopy for polypectomy. Referral to arrange follow up provided and under review. CEA elevated. Patient aware of plan. HTN/HLD Home statin resumed, can resume lisinopril/HCTZ at discharge. GERD Hiatal Hernia Continue home PPI Provoked DVT (after spinal surgery) Home Eliquis resumed to complete 3 month course Right clavicle fracture Recent fall 2 weeks prior to this admission NWB RUE with outpatient followup Chronic Pain Home gabapentin and prn Zanaflex resumed, prn Tylenol Did not require narcotics prior to discharge. PT/OT rec SNF. At time of discharge, the patient was tolerating oral food and hydration, voiding spontaneously, had return of bowel function, was ambulating with assistance, and pain was controlled on oral medications. The patient was determined to be suitable for discharge and the patient felt comfortable with th at decision. Patient was discharged in stable condition. Family opted to transfer to SNF, who was agreeable to this option. Reviewed plan at discharge with family and patient prior to dc. Disposition: [facility] Patient Instructions: Allergies: Allergies[2] Medication List TAKE these medications, which are NEW Quantity/Refills acetaminophen 325 MG tablet Commonly known as: TYLENOL Take 3 tablets (975 mg total) by mouth every 8 hours as needed for Pain. Refills: 0 aluminum & magnesium hydroxide-simethicone 400-400-40 mg/5 mL suspension Commonly known as: Mylanta Maximum Strength Take 15 mLs by mouth every 6 hours as needed. Refills: 0 calcium carbonate 200 mg calcium (500 mg) chewable tablet Commonly known as: TUMS Chew 1 tablet (500 mg total) by mouth 3 times a day as needed. Refills: 0 QUEtiapine 25 MG tablet Commonly known as: SEROQUEL Take 1 tablet (25 mg total) by mouth at bedtime. Refills: 0 senna-docusate 8.6-50 mg per tablet Commonly known as: SENNA-S Take 1 tablet by mouth daily as needed for Constipation. Refills: 0 TAKE these medications, which you were ALREADY TAKING Quantity/Refills alendronate 70 MG tablet Commonly known as: FOSAMAX Take 1 tablet (70 mg total) by mouth every 7 days. Refills: 0 apixaban 5 mg Tab Commonly known as: ELIQUIS Take 1 tablet (5 mg total) by mouth 2 times a day. Refills: 0 cyclobenzaprine 5 MG tablet Commonly known as: FLEXERIL Take 1 tablet (5 mg total) by mouth 3 times a day as needed for Muscle spasms. Refills: 0 gabapentin 300 MG capsule Commonly known as: NEURONTIN Take 1 capsule (300 mg total) by mouth 3 times a day. Refills: 0 lisinopriL-hydrochlorothiazide 20-12.5 mg per tablet Commonly known as: PRINZIDE Take 1 tablet by mouth daily. Refills: 0 omeprazole 40 MG capsule Commonly known as: PRILOSEC Take 1 capsule (40 mg total) by mouth 2 times a day. Refills: 0 pravastatin 40 MG tablet Commonly known as: PRAVACHOL Take 1 tablet (40 mg total) by mouth daily. Refills: 0 STOP taking these medications meloxicam 15 MG tablet Commonly known as: MOBIC oxyCODONE 5 MG immediate release tablet Commonly known as: ROXICODONE Where to Get Your Medications Information about where to get these medications is not yet available Ask your nurse or doctor about these medications acetaminophen 325 MG tablet aluminum & magnesium hydroxide-simethicone 400-400-40 mg/5 mL suspension calcium carbonate 200 mg calcium (500 mg) chewable tablet QUEtiapine 25 MG tablet senna-docusate 8.6-50 mg per tablet Acute Care Surgery Discharge Instructions Diagnosis: Ogilvies vs splenic flexure tapering 5 mm polyp in the sigmoid colon Procedure(s) performed: None Activity: Do not lift more than 10 pounds for 4-6 weeks post-operatively Light activity Get out of bed and walk frequently Return to work: May return to work as tolerated Return to work to be discussed at follow up appointment Diet: Regular diet Drain/Dressing/Wound Care: May shower. Other Instructions: Senna-S BID, miralax titrated to 1-2 soft BM per day (take only if no BM the day prior) Incentive spirometer (IS) - 10 times an hour while awake. Cough and deep breathe. If you are being discharged with medication to take as needed for pain, requests for refills may not be addressed at night or on the weekend. If you are in severe pain, not relieved by your medication, please call or return to the Emergency Room. No driving if taking narcotic pain medications. If you have questions after discharge please call the Acute Care Surgery Hotline at Identify yourself as an ACUTE CARE SURGERY patient and ask for the ACUTE CARE SURGERY RESIDENT supervisor operations. Please call or return to the emergency room if you experience any of the following: Worsening pain, nausea, or vomiting not relieved by medications Temperature greater than 101 F. Fever/chills Chest pain, shortness of breath, persistent dizziness, swelling in one or both legs Follow-up: No future appointments. [facility] at [address] [address] Follow up Call as needed for Acute Care Surgery Clinic follow up appointment. Placido Mercado MD [address] [place] [id number] Follow up SNF to call PCP for an appointment upon discharge. Medicine Specialties-Gastroenterology [facility] Medicine Specialties [address] [place] [address] Phone: #[phone] Fax: #[phone] Follow up A referral has been sent to GI for further follow up to discuss a repeat non- emergent colonoscopy for polypectomy. You will be contacted by the GI offie to schedule follow up once the referral hasbeen reviewed. If you do not hear from them within a week, please call #[phone] to schedule. Recommend follow-up with PCP within 7 days of discharge for post-hospitalization evaluation. Signed: Roseline Daigle CNP 07/10/2025 3:15 PM [1] There is no problem list on file for this patient. [2] No Known Drug Allergies or Adverse Reactions Cosigned by Diaz Cavazos MD at 07/10/2025 5:05 PM EST Associated attestation - Diaz Cavazos MD - 07/10/2025 5:05 PM EST Attending Attestation: This patient was seen by the Advanced Practice Provider/Resident team and I have personally seen and examined this patient today (07/10/2025), discussed the plans with the resident/BALTAZAR, and agree withtheir findings and plan documented in their note. My assessment reveals the followin yo F presented with abdominal distention Tolerating a diet, abdomen soft +BMs Abd soft, NT, ND. Having bowel function, occasional gassy cramping. Note of elevated CEA. Ogilvies vs splenic flexure tapering 07/08 flex sig (to transverse colon) no mass or stricture, some polyps that were not removed due toAC - outpt full colonoscopy DVT - continue eliquis Appropriate for discharge with follow-up as outlined. DIAZ CAVAZOS MD Attending Surgeon Division of Trauma, Surgical Critical Care, and Acute Care Surgery documented in this encounter Discharge Instructions * Discharge Instructions* Iliana Patterson RN - 07/07/2025 1:26 PM EST Acute Care Surgery Discharge Instructions Diagnosis: Procedure(s) performed: Activity: Do not lift more than 10 pounds for 4-6 weeks post-operatively Light activity Get out of bed and walk frequently Return to work: May return to work as tolerated Return to work to be discussed at follow up appointment Diet: Regular diet Special diet: Drain/Dressing/Wound Care: Empty, measure, and record drain output daily Strip, measure, and record drain output 2 times per day Leave sutures/rochelle/steri-strips in place. Keep clean and dry. Your wound is dressed with dermabond glue, it will dissolve gradually over 7-10 days Dressing changes: May shower on . Wash incision gently with soap and water and pat dry. Do not soak incisions in bath water or swim for two weeks. Other Instructions: Senna-S BID, miralax titrated to 1-2 soft BM per day (take only if no BM the day prior) Incentive spirometer (IS) - 10 times an hour while awake. Cough and deep breathe. If you are being discharged with medication to take as needed for pain, requests for refills may not be addressed at night or on the weekend. If you are in severe pain, not relieved by your medication, please call or return to the Emergency Room. No driving if taking narcotic pain medications If you have questions after discharge please call the Acute Care Surgery Hotline at Identify yourself as an ACUTE CARE SURGERY patient and ask for the ACUTE CARE SURGERY RESIDENT supervisor operations. Please call or return to the emergency room if you experience any of the following: Worsening pain, nausea, or vomiting not relieved by medications Temperature greater than 101 F. Fever/chills Redness around incision/wound, drainage, or wound edge separation Chest pain, shortness of breath, persistent dizziness, swelling in one or both legs No future appointments. * Attachments The following attachments cannot be sent through Care Everywhere. * Apixaban Tablets (Togolese) documented in this encounter Medications at Time of Discharge acetaminophen (TYLENOL) 325 MG tablet Take 3 tablets (975 mg total) by mouth every 8 hours as needed for Pain. 07/10/2025 alendronate (FOSAMAX) 70 MG tablet Take 1 tablet (70 mg total) by mouth every 7 days. aluminum & magnesium hydroxide-simethi cone (MYLANTA MAXIMUM STRENGTH) 400-400-40 mg/5 mL suspension Take 15 mLs by mouth every 6 hours as needed. 07/10/2025 apixaban (ELIQUIS) 5 mg Tab Take 1 tablet (5 mg total) by mouth 2 times a day. calcium carbonate (TUMS) 200 mg calcium (500 mg) chewable tablet Chew 1 tablet (500 mg total) by mouth 3 times a day as needed. 07/10/2025 cyclobenzaprine (FLEXERIL) 5 MG tablet Take 1 tablet (5 mg total) by mouth 3 times a day as needed for Muscle spasms. gabapentin (NEURONTIN) 300 MG capsule Take 1 capsule (300 mg total) by mouth 3 times a day. lisinopriL-hydroc hlorothiazide (PRINZIDE) 20-12.5 mg per tablet Take 1 tablet by mouth daily. omeprazole (PRILOSEC) 40 MG capsule Take 1 capsule (40 mg total) by mouth 2 times a day. pravastatin (PRAVACHOL) 40 MG tablet Take 1 tablet (40 mg total) by mouth daily. QUEtiapine (SEROQUEL) 25 MG tablet Take 1 tablet (25 mg total) by mouth at bedtime. 07/10/2025 senna-docusate (SENNA-S) 8.6-50 mg per tablet Take 1 tablet by mouth daily as needed for Constipation. 07/10/2025 documented as of this encounter Progress Notes * Alexa Guzmán PT - 07/10/2025 11:20 AM EST Physical Therapy Reason Patient Not Seen Name: Gladys Feliciano : 1945 Attending Physician: Shannon Campa MD Admission Diagnosis: SBO (small bowel obstruction) ([facility]) [K56.609] Date: 07/10/2025 Precautions: Precautions: NWB RUE due to recent RUE fx Reviewed Pertinent hospital course: Yes Unable to see patient due to: Pt working with OT upon attempt for PT session. Will follow up as schedule allows. * Aroldo Moon OT - 07/10/2025 10:59 AM EST Occupational Therapy Treatment Name: Gladys Feliciano : 1945 Attending Physician: Shannon Campa MD Admission Diagnosis: SBO (small bowel obstruction) ([facility]) [K56.609] Date: 07/10/2025 Room: 9041/U9041 Reviewed Pertinent hospital course: Yes Hospital Course PT/OT: 79 y/o female from OSH p/w concern for large bowel obstruction vs Mosier's syndrome. 07/04: KUB suggestive of ileus. 07/08: s/p sigmoid flexible showing rectal ulcers, sigmoid colon polyp and no evidence of mass. Chart reviewed 07/09 Relevant PMH : HTN, HLD, GERD/hiatal hernia, chronic back pain, and a provoked DVT (on eliquis) Precautions: NWB RUE due to recent RUE fx Activity Level: Activity as tolerated Assist: None Recommendation Recommendation: Short-term skilled OT (recommend 5x/week at discharge) Equipment Recommendations: None Assessment Assessment: Decreased Balance, Decreased activity tolerance, Decreased ADL status, Decreased UE ROM, Decreased self-care transfers, Decreased Functional Mobility Prognosis for OT goals: Good Pt tolerated therapy well and is progressing towards goals. Pt would benefit from continued therapyat d/c to increase strength and improve ability to perform ADLs and transfers with less assistance. Outcome Measures AM-PAC 6 Clicks Daily Activity Inpatient Short Form: OT 6 Clicks Score: 14 Cognition Overall Cognitive Status: Within Functional Limits Arousal/Alertness: Alert Orientation Level: Oriented X4 Behavior: Appropriate;Cooperative Following Commands: Follows all commands and directions without difficulty Safety Judgment: Good awareness of safety precautions Pain Pain Score: (no number rated) Pain Location: Abdomen Pain Descriptors: Discomfort Pain Intervention(s): Repositioned Therapist reported pain to: RN Exercises Functional Mobility Bed Mobility Supine to Sit: Minimal assistance;increased time to complete task;head of bed elevated Functional Transfers Sit to Stand: Minimal assistance;increased time to complete task Toilet Transfers: Minimal assistance;increased time to complete task Functional Mobility: Minimal assistance;increased time to complete task Functional Mobility Comment: Pt ambulated household distance into bathroom and and robert with min A using L LIBRARY SPECIALIST and increased time to complete to increased strength and activity tolerance. Balance Sitting - Static: Supervision Sitting - Dynamic: Stand by assistance Standing - Static: Contact Guard Assistance Standing - Dynamic: Minimal Assistance Gait belt used: Yes ADL Upper Body Dressing: Moderate assistance Upper Body Dressing Deficit Additional Comments: to mary grace back gown Lower Body Dressing: Maximum assistance Lower Body Dressing Deficit: Don/doff L shoe;Don/doff L sock;Don/doff R sock;Don/doff R shoe Toileting: Maximum assistance Toileting Deficit: Toileting hygiene;Clothing management down;Clothing management up Position after Treatment/Safety Handoff Position after therapy session: Bed Details: RN notified;Call light/ needs within reach Alarms: Bed Alarms Status: Activated and Interfaced with call system Goals Goals to be met in: 1 week: Patient stated goal: to increase activity, to increase independence Patient will complete supine to sit in prep for ADLs: Supervision Patient will complete functional chair transfer: Stand-by assistance Patient will complete toilet transfer: Stand-by assistance Patient will complete grooming task: Stand-by assistance (standing sinkside) Patient will complete upper body dressing: Minimal assistance (goal met and upgraded 07/10) Patient will complete lower body dressing: Moderate assistance (goal met and upgraded 07/10) Pt Will tolerate completeing ADLs with pain less than 4/10: . senior care goal to be met in: 2 weeks: Patient will participate in UB/LB bathing task assessment. Collaborated with: Patient, Family Plan Plan Treatment Interventions: ADL retraining, Activity Tolerance training, IADL retraining, Energy Conservation, Equipment eval/education, Functional transfer training, Patient/Family training, UE strengthening/ROM, Therapeutic Activity, Compensatory technique education, Lower Extremity Intervention, Excercise OT Frequency during hospitalization: minimum 3x/week The plan of care and recommendations assesses the patient's and/or caregiver's readiness, willingness, and ability to provide or support functional mobility and ADL tasks as needed upon discharge. Patient/Family Education Educated patient on the role of occupational therapy, OT goals, OT plan of care, discharge recommendation, ADL training, and functional mobility training and fall prevention strategies including needfor supervision/ assistance with OOB activity and use of call light. patient verbalized understanding and demonstrated understanding. OT Time Start Time: 1027 Stop Time: 1050 Time Calculation (min): 23 min OT Charges $Therapeutic Activity: 8-22 mins $Self Care/ADL/Home Management Trainin-22 mins Problem List Problem List[1] Past Medical History Past Medical History: Diagnosis Date Hypercholesteremia Hypertension Past Surgical History Past Surgical History: Procedure Laterality Date BACK SURGERY FLEXIBLE SIGMOIDOSCOPY N/A 07/08/2025 Procedure: SIGMOID FLEXIBLE; Surgeon: Vik Le MD; Location: ENDOSCOPY; Service: Gastroenterology; Laterality: N/A; [1] There is no problem list on file for this patient. * Darya Mancini, RD - 07/10/2025 8:55 AM EST [facility] Medical Nutrition Therapy Malnutrition Status Pt meets criteria for No protein-calorie malnutrition based on ASPEN/AND malnutrition diagnostic characteristics. Reason(s) for Completion: Nutrition Services Protocol, LOS Diet Order: Regular (7) Pertinent Information: Gladys Feliciano is a 79 y.o. female with past medical history significant for HTN, HLD, GERD/hiatal hernia, chronic back pain, and a provoked DVT who presented on 07/03 with abdominal pain and distention with CT findings concerning for large bowel obstruction vs. Starr's Syndrome. HD#7, visited patient at bedside, breakfast tray was in front of her with little consumed. She reported she is weak and tired with constant diarrhea. She also reported she has 4-5 bottom teeth with upper dentures but can chew regular food. Does have Gatorade on her tray, which she does drink because she was told it will help with her diarrhea. She felt she was eating okay at home, only 2 meals/day but they were good meals. Her weight was in the 180s 6 months ago. Skin Integrity: intact Daniel Scale Score: 20 GI: last BM Last BM Date: 07/09/25 Problem List[1] Past Medical History: Diagnosis Date Hypercholesteremia Hypertension Scheduled Meds: apixaban 5 mg Oral BID atorvastatin 10 mg Oral Nightly (2099) gabapentin 300 mg Oral TID pantoprazole 40 mg Oral DAILY 599 QUEtiapine 25 mg Oral Nightly (2099) senna-docusate 1 tablet Oral BID Continuous Infusions: PRN Meds:acetaminophen, aluminum & magnesium hydroxide-simethicone, calcium carbonate, diphenhydrAMINE, hydrALAZINE, methocarbamoL, ondansetron Pertinent Labs: Lab Results Component Value Date CREATININE 0.82 07/10/2025 BUN 20 07/10/2025 NA 137 07/10/2025 K 4.0 07/10/2025 CL 102 07/10/2025 CO2 23 07/10/2025 Lab Results Component Value Date ALBUMIN 4.1 07/10/2025 No results found for: PREALBUMIN Lab Results Component Value Date CALCIUM 10.3 07/10/2025 PHOS 2.1 07/10/2025 Lab Results Component Value Date MG 1.8 07/10/2025 No results found for: POCGMD No results found for: POCGMD , POCGLU Lab Results Component Value Date HGBA1C 5.2 07/03/2025 Lab Results Component Value Date CRP 3.0 07/03/2025 No results found for: TRIG Lab Results Component Value Date WBC 7.0 07/10/2025 HGB 9.0 (L) 07/10/2025 HCT 27.8 (L) 07/10/2025 MCV 76.2 (L) 07/10/2025 PLT 439 (H) 07/10/2025 Lab review: Hgb, Hct low; other above labs WDL Temp (24hrs), Av.1 ??F (36.7 ??C), Min:97.8 ??F (36.6 ??C), Max:98.8 ??F (37.1 ??C) Potential Nutrition Related Factor(s): Altered dentition, diarrhea Social needs that may impact access to food: none noted Food Allergies/Intolerances: [facility] Cultural Requests: None 79 y.o. Female Ht Readings from Last 1 Encounters: 07/08/25 5' 3 (1.6 m) Wt Readings from Last 1 Encounters: 07/08/25 170 lb (77.1 kg) Body mass index is 30.11 kg/m??. BMI Category: Class 1 (30.00 - 34.99) BMI [place] Body Weight: 115 lb (52.27 kg) +/- 10% Wt Readings from Last 25 Encounters: 07/08/25 170 lb (77.1 kg) Weight Change: 10# decrease in 6 [id number], not significant Estimated Nutrition Needs: Needs based On: 77.1 kg CBW Kcals/day: 4817-1495 (MSJx1.2x1.3) Protein g/day: 77 (1 g/kg) Carbohydrate g/day: Not restricted Fluid ml/day: ~1mL/kcal or per MD Nutrition Related Problems: Nutrition Diagnosis: Inadequate oral intake Related To: diarrhea, weakness As Evidenced By: self-reported Recommended Interventions: Add/Change Medical Food Supplement/Snack and Monitor PO Intake/Tolerance Goals:Total energy intake improved as evidenced by PO intake at least 50-100% of meals/supplements/snacks within 3-5 days Nutrition Transition of Care Plan: Discharge plan of care for nutrition ongoing pending clinical course. Follow up per protocol while inpatient. Recommendation(s) to Physician: Steve Bey Continue to monitor PO intakes, ONS utilization, weights and nutrition related labs. Darya Mancini RD, LD Clinical Dietitian [facility] Available for questions via secure Recombine chat [1] There is no problem list on file for this patient. * Roseline Daigle CNP - 07/10/2025 8:37 AM EST ACUTE CARE SURGERY PROGRESS NOTE Admit Date: 07/03/2025 OR Date: 07/08/2025 Subjective: Precert pending to SNF. Hgb stable. Objective: Vitals: Temp: [97.8 ??F (36.6 ??C)-98.8 ??F (37.1 ??C)] 97.8 ??F (36.6 ??C) Heart Rate: [78-100] 97 Resp: [16-17] 16 BP: (107-169)/(57-88) 107/57 Vitals: 07/10/25 0814 BP: 107/57 Pulse: 97 Resp: 16 Temp: 97.8 ??F (36.6 ??C) SpO2: 97% Date 07/09/25 07 - 07/10/2559 07/10/25699 - 07/11/25 0659 Shift 1193-6079 1302-0893 4505-0433 24 Hour Total 8746-9335 0208-6208 1897-0421 24 Hour Total INTAKE P.O. 240 240 P.O. 240 240 Shift Total(mL/kg) 240(3.1) 240(3.1) OUTPUT Urine(mL/kg/hr) Urine Occurrence 2 x 1 x 3 x 1 x 1 x Stool Stool Occurrence 1 x 2 x 1 x 4 x 1 x 1 x Shift Total(mL/kg) Weight (kg) 77.1 77.1 77.1 77.1 77.1 77.1 77.1 77.1 Physical Exam: Gen: Alert and oriented x 3, no acute distress HEENT: NCAT, PERRL CV: Regular rate Resp: No respiratory distress Abd: Soft, non-distended, non-tender Ext: Warm and well perfused Recent Labs 07/08/2532107/09/2534707/10/25313 WBC 5.2 5.0 7.0 HGB 9.8* 8.1* 9.0* HCT 30.5* 25.1* 27.8* MCV 75.4* 76.6* 76.2* PLT 513* 412* 439* Recent Labs 07/08/2532107/09/2534707/10/25313 NA 137 135 137 K 3.8 3.5 4.0 CL 103 104 102 CO2 20* 24 23 PHOS 3.2 3.7 2.1 BUN 15 15 20 CREATININE 0.85 0.74 0.82 CALCIUM 9.7 9.5 10.3 No results for input(s): POCGLU , POCGMD in the last 72 hours. Invalid input(s): GLU No results for input(s): BILITOT , AST , ALT , ALKPHOS , GGT , AMYLASE , LIPASE in the last72 hours. Invalid input(s): BILIDIR , 5NUC , ALB No results for input(s): INR , PROTIME in the last 72 hours. Current Medications: Scheduled Medications: apixaban, 5 mg, BID atorvastatin, 10 mg, Nightly (2100) gabapentin, 300 mg, TID pantoprazole, 40 mg, DAILY 0600 QUEtiapine, 25 mg, Nightly (2100) senna-docusate, 1 tablet, BID IV Meds: PRN Medications: acetaminophen, 975 mg, Q8H PRN aluminum & magnesium hydroxide-simethicone, 15 mL, Q6H PRN calcium carbonate, 500 mg, TID PRN diphenhydrAMINE, 25 mg, Nightly PRN hydrALAZINE, 10 mg, Q6H PRN methocarbamoL, 500 mg, 4x Daily PRN ondansetron, 4 mg, Q6H PRN Imaging: No results found. Assessment / Plan: Gladys Feliciano is a 79 y.o. female with past medical history significant for HTN, HLD, GERD/hiatal hernia, chronic back pain, and a provoked DVT who presented on 07/03 with abdominal pain and distention with CT findings concerning for large bowel obstruction vs. Mosier's Syndrome. Ogilvies vs Splenic Flexure Narrowing - GI consulted - Not a candidate for endoscopic colonic decompression or neostigmine - s/p flex sig for concern at splenic flexure with one 5mm polyp but with moderate amount of stool making visualization difficult. No mass was visualized. - Diet resumed - Continues to have regular BMs - Will need outpatient GI to discuss repeat colonoscopy for polypectomy. Referral to arrange followup provided. HTN/HLD - Home statin resumed GERD Hiatal Hernia - Continue home PPI Provoked DVT (after spinal surgery) - Home Eliquis resumed Chronic Pain - Home gabapentin resumed Dispo: Floor, med ready for SNF. Precert pending. Roseline Daigle CNP Department of Surgery Division of Trauma, Surgical Critical Care, and Acute Care Surgery Cosigned by Diaz Cavazos MD at 07/10/2025 2:50 PM EST Associated attestation - Diaz Cavazos MD - 07/10/2025 2:50 PM EST Attending Attestation: This patient was seen by the Advanced Practice Provider/Resident team and I have personally seen and examined this patient today (07/10/2025), discussed the plans with the resident/BALTAZAR, and agree withtheir findings and plan documented in their note. My assessment reveals the followin yo F presented with abdominal distention Tolerating a diet, abdomen soft +BMs Abd soft, NT, ND. Having bowel function, occasional gassy cramping. Note of elevated CEA. Ogilvies vs splenic flexure tapering 07/08 flex sig (to transverse colon) no mass or stricture, some polyps that were not removed due toAC - outpt full colonoscopy DVT - continue eliquis Hiatal hernia - PPI, minimal symptoms, no acute intervention - recommend EGD at some point Chronic anemia - follow hgb, may need follow-up with PCP. Daily CBC Multiple falls, fxs - minimize opioid use - PT/OT to eval for placement Hx clavicle frx - in a sling Dispo planning - to SNF. Medically ready. Medical decision making included the following: Acute or chronic illness or injury that poses a threat to life or bodily function: LBO vs ileus Prescription drug management: yes DIAZ CAVAZOS MD Attending Surgeon Division of Trauma, Surgical Critical Care, and Acute Care Surgery * Alexa Guzmán, PT - 07/09/2025 3:18 PM EST Physical Therapy Treatment Name: Gladys Feliciano : 1945 Attending Physician: Shannon Campa MD Admission Diagnosis: SBO (small bowel obstruction) ([facility]) [K56.609] Date: 07/09/2025 Room: [facility] Reviewed Pertinent hospital course: Yes Hospital Course PT/OT: 79 y/o female from OSH p/w concern for large bowel obstruction vs Mosier's syndrome. 07/04: KUB suggestive of ileus. 07/08: s/p sigmoid flexible showing rectal ulcers, sigmoid colon polyp and no evidence of mass. Chart reviewed 07/09 Relevant PMH : HTN, HLD, GERD/hiatal hernia, chronic back pain, and a provoked DVT (on eliquis) Precautions: NWB RUE due to recent RUE fx Activity Level: Activity as tolerated Assist: None Assessment Pt sitting in chair upon arrival for physical therapy and agreeable to treatment session. Pt continues to require Mynor for ambulation trialing SPV vs handheld assistance this date. Pt demonstrates a step to pattern with increased LOB noted during dual tasks. Pt tolerated mobility well and is limited by decreased tolerance to activity , weakness, and impaired balance. Patient will benefit from inpatient physical therapy at a assisted facility following discharge. At this time the patient is below their baseline with functional mobility, requiring increased need for assistance and increased burden of care. Recommendation Recommendation: Short-term skilled PT (recommend 5x/week at discharge) Equipment Recommended: Defer to facility to obtain AM-PAC 6 Clicks Basic Mobility Inpatient Short Form: PT 6 Clicks Score: 16 Mobility Recommendations for Staff Patient ability: Patient ambulates in room/ to bathroom, Patient ambulates in hallway (with L hand-held assist) Assist needed: with 1 person assist Equipment/ Precautions needed: use gait belt, Has precautions Precautions: NWB RUE Cognition Overall Cognitive Status: Within Functional Limits Arousal/Alertness: Alert Orientation Level: Oriented X4 Behavior: Appropriate;Cooperative Following Commands: Follows all commands and directions without difficulty Safety Judgment: Good awareness of safety precautions Insight: Demonstrated intact insight into limitation and abilities to complete ADL's safely Communication: Verbalization Pain Pain Score: (not rated) Pain Location: Arm Pain Intervention(s): Repositioned;Ambulation/increased activity Therapist reported pain to: RN Mobility Transfers Sit to Stand: Minimal assistance Stand to Sit: Minimal assistance Gait Distance: 80' x2 (seated rest break between bouts) Assistive Device: (handheld assistance vs cane) Gait Characteristics: Unsteady;step-to pattern;Shuffling;Narrow RENEE;decreased anthony Balance Sitting - Static: Supervision Sitting - Dynamic: Supervision Standing - Static: Contact Guard Assistance Standing - Dynamic: Minimal Assistance Gait belt used: Yes Exercise Seated Reps/Comments: RUE: AROM wrist flexion/extension and elbow flexion/extension Position after Treatment and Safety Handoff Position after treatment and safety handoff Position after therapy session: Recliner Details: RN notified;visitor present;Call light/ needs within reach Alarms: Chair Alarms Status: Activated and Interfaced with call system Goals Goals Met: None Collaborated with: Patient, Family Patient Stated Goal: to increase independence, to go home Goals to be met by: 07/11/25 Patient will transition from supine to sit: Independent, head of bed flat, without bedrails Patient will transition from sit to supine: Independent, head of bed flat, without bedrails Patient will transfer from sit to stand: Stand-By assistance, while maintaining weight-bearing precautions Patient will ambulate: Contact Guard assistance, with assistive device, distance (in feet) Ambulation Assistance Device: Least restrictive asistive device Distance (in feet): 50' Patient will participate in bilateral lower extremeity HEP in preperation for further functional mobility: 10 repetitions Pt Will report pain with functional mobility at: 4/10 or less Long-term goal to be met by: 07/18/25 [employer] Goal : Pt will participate in stair assessment Patient/Family Education Educated patient on the role of physical therapy, importance of increased activity, and discharge recommendations and fall prevention strategies, including need for supervision/ assistance with OOB activity and use of call light; patient verbalized understanding. Handout(s) issued: none. Plan Plan Treatment/Interventions: LE strengthening/ROM, Endurance training, Patient/family training, Gait training, Equipment eval/education, Compensatory technique education, Continued evaluation, Stair Training, Therapeutic Activity, Therapeutic Exercise PT Frequency during hospitalization: minimum 3x/week The plan of care and recommendations assesses the patient's and/or caregiver's readiness, willingness, and ability to provide or support functional mobility and ADL tasks as needed upon discharge. Time Start Time: 1348 Stop Time: 1417 Time Calculation (min): 29 min Charges $Gait/Mobility: 8-22 mins $Therapeutic Exercise: 8-22 mins Problem List Problem List[1] Past Medical History Past Medical History: Diagnosis Date Hypercholesteremia Hypertension Past Surgical History Past Surgical History: Procedure Laterality Date BACK SURGERY FLEXIBLE SIGMOIDOSCOPY N/A 07/08/2025 Procedure: SIGMOID FLEXIBLE; Surgeon: Vik Le MD; Location: ENDOSCOPY; Service: Gastroenterology; Laterality: N/A; [1] There is no problem list on file for this patient. * Roseline Daigle CNP - 07/09/2025 8:35 AM EST ACUTE CARE SURGERY PROGRESS NOTE Admit Date: 07/03/2025 OR Date: 07/08/2025 Subjective: S/p flex sig with GI. 1 polyp in sigmoid colon, 2 ulcerations in rectum Objective: Vitals: Temp: [97.7 ??F (36.5 ??C)-98.8 ??F (37.1 ??C)] 98.1 ??F (36.7 ??C) Heart Rate: [76-96] 80 Resp: [15-18] 15 BP: (122-159)/(70-97) 138/77 Vitals: 07/09/25 0741 BP: 138/77 Pulse: 80 Resp: 15 Temp: 98.1 ??F (36.7 ??C) SpO2: 94% Date 07/08/25699 - 07/09/25 0659 07/09/25 07 - 07/10/25 0659 Shift 7814-8606 6331-7947 9060-8189 24 Hour Total 6111-8181 9649-0807 2503-2664 24 Hour Total INTAKE P.O. 340 340 P.O. 340 340 I.V.(mL/kg) 200(2.6) 200(2.6) Volume (mL) (sodium chloride 0.9 % IV infusion) 200 200 Shift Total(mL/kg) 540(7) 540(7) OUTPUT Urine(mL/kg/hr) Urine Occurrence 3 x 1 x 1 x 5 x Stool Stool Occurrence 3 x 0 x 3 x Shift Total(mL/kg) Weight (kg) 77.1 77.1 77.1 77.1 77.1 77.1 77.1 77.1 Physical Exam: Gen: Alert and oriented x 3, no acute distress HEENT: NCAT, PERRL CV: Regular rate Resp: No respiratory distress Abd: Soft, non-distended, non-tender Ext: Warm and well perfused Recent Labs 07/07/2534307/08/2532107/09/25347 WBC 5.2 5.2 5.0 HGB 8.5* 9.8* 8.1* HCT 26.7* 30.5* 25.1* MCV 77.5* 75.4* 76.6* PLT 411* 513* 412* Recent Labs 11/03/25 0344 11/04/25 0322 11/05/25 0348 NA 136 137 135 K 3.7 3.8 3.5 CL 104 103 104 CO2 24 20* 24 PHOS 3.4 3.2 3.7 BUN 12 15 15 CREATININE 0.73 0.85 0.74 CALCIUM 8.9 9.7 9.5 No results for input(s): POCGLU , POCGMD in the last 72 hours. Invalid input(s): GLU No results for input(s): BILITOT , AST , ALT , ALKPHOS , GGT , AMYLASE , LIPASE in the last72 hours. Invalid input(s): BILIDIR , 5NUC , ALB No results for input(s): INR , PROTIME in the last 72 hours. Current Medications: Scheduled Medications: apixaban, 5 mg, BID atorvastatin, 10 mg, Nightly (2100) gabapentin, 300 mg, TID pantoprazole, 40 mg, DAILY 0600 potassium chloride, 20 mEq, Once senna-docusate, 1 tablet, BID simethicone, 80 mg, PC/HS IV Meds: PRN Medications: acetaminophen, 975 mg, Q8H PRN calcium carbonate, 500 mg, TID PRN diphenhydrAMINE, 25 mg, Nightly PRN hydrALAZINE, 10 mg, Q6H PRN methocarbamoL, 500 mg, 4x Daily PRN ondansetron, 4 mg, Q6H PRN Imaging: No results found. Assessment / Plan: Gladys Feliciano is a 79 y.o. female with past medical history significant for HTN, HLD, GERD/hiatal hernia, chronic back pain, and a provoked DVT who presented on 07/03 with abdominal pain and distention with CT findings concerning for large bowel obstruction vs. Mosier's Syndrome. Ogilvies vs Splenic Flexure Narrowing - GI consulted - Not a candidate for endoscopic colonic decompression or neostigmine - s/p flex sig for concern at splenic flexure with one 5mm polyp but with moderate amount of stool making visualization difficult. No mass was visualized. - Diet resumed post-procedure - Continues to have regular BMs - Will need outpatient GI to discuss repeat colonoscopy for polypectomy HTN/HLD - Home statin resumed GERD Hiatal Hernia - Continue home PPI Provoked DVT (after spinal surgery) - Home Eliquis resumed Chronic Pain - Home gabapentin resumed Dispo: Floor, med ready for SNF Roseline Daigle CNP Department of Surgery Division of Trauma, Surgical Critical Care, and Acute Care Surgery Cosigned by Diaz Cavazos MD at 07/09/2025 1:27 PM EST Associated attestation - Diaz Cavazos MD - 07/09/2025 1:27 PM EST Attending Attestation: This patient was seen by the Advanced Practice Provider/Resident team and I have personally seen and examined this patient today (07/09/2025), discussed the plans with the resident/BALTAZAR, and agree withtheir findings and plan documented in their note. My assessment reveals the followin yo F presented with abdominal distention Tolerating a diet, abdomen soft +BMs Abd soft, NT, ND. Having bowel function, occasional gassy cramping. Note of elevated CEA. Ogilvies vs splenic flexure tapering 07/08 flex sig (to transverse colon) no mass or stricture, some polyps that were not removed due toAC - outpt full colonoscopy DVT - continue eliquis Hiatal hernia - PPI, minimal symptoms, no acute intervention - recommend EGD at some point Chronic anemia - follow hgb, may need follow-up with PCP. Daily CBC Multiple falls, fxs - minimize opioid use - PT/OT to eval for placement Hx clavicle frx - in a sling Dispo planning - to SNF. Medically ready. Medical decision making included the following: Acute or chronic illness or injury that poses a threat to life or bodily function: LBO vs ileus Prescription drug management: yes DIAZ CAVAZOS MD Attending Surgeon Division of Trauma, Surgical Critical Care, and Acute Care Surgery * Alexa uGzmán, PT - 07/08/2025 3:37 PM EST Physical Therapy Treatment Name: Gladys Feliciano : 1945 Attending Physician: Shannon Campa MD Admission Diagnosis: SBO (small bowel obstruction) ([facility]-H[facility]) [K56.609] Date: 07/08/2025 Room: [address] [place] [address] Reviewed Pertinent hospital course: Yes Hospital Course PT/OT: 79 y/o female from OSH p/w concern for large bowel obstruction vs Starr's syndrome. 07/04: KUB suggestive of ileus. chart reviewed 07/08 Relevant PMH : HTN, HLD, GERD/hiatal hernia, chronic back pain, and a provoked DVT (on eliquis) Precautions: NWB RUE due to recent RUE fx Activity Level: Activity as tolerated Assist: None Assessment Pt supine in bed upon arrival for physical therapy and agreeable to treatment session. Pt continuesto require Mynor for ambulation with handheld assistance. Pt tolerated mobility fairly well and is limited by decreased tolerance to activity , weakness, and impaired balance. Patient will benefit from inpatient physical therapy at a assisted facility following discharge. At this time the patient is below their baseline with functional mobility, requiring increased need for assistance and increased burden of care. Recommendation Recommendation: Short-term skilled PT (recommend 5x/week at discharge) Equipment Recommended: Defer until further assessment, Defer to facility to obtain AM-PAC 6 Clicks Basic Mobility Inpatient Short Form: PT 6 Clicks Score: 16 Mobility Recommendations for Staff Patient ability: Patient ambulates in room/ to bathroom, Patient ambulates in hallway (with L hand-held assist) Assist needed: with 1 person assist Equipment/ Precautions needed: use gait belt, Has precautions Precautions: NWB RUE Cognition Overall Cognitive Status: Within Functional Limits Arousal/Alertness: Alert Orientation Level: Oriented X4 Behavior: Appropriate;Cooperative Following Commands: Follows all commands and directions without difficulty Safety Judgment: Good awareness of safety precautions Communication: Verbalization Pain Pain Score: (not rated) Pain Location: Abdomen Pain Intervention(s): Repositioned;Ambulation/increased activity Mobility Bed Mobility Supine to Sit: Contact Guard assistance Transfers Sit to Stand: Minimal assistance (from EOB x2) Stand to Sit: Minimal assistance Gait Distance: 80' x2, 15' Level of Assistance: Minimal assistance Assistive Device: (handheld assist) Gait Characteristics: Unsteady;step-to pattern;Shuffling Balance Sitting - Static: Supervision Sitting - Dynamic: Supervision Standing - Static: Contact Guard Assistance Standing - Dynamic: Minimal Assistance Gait belt used: Yes Position after Treatment and Safety Handoff Position after treatment and safety handoff Position after therapy session: Recliner Details: RN notified;Call light/ needs within reach Alarms: Chair Alarms Status: Activated and Interfaced with call system Goals Goals Met: None Collaborated with: Patient, Family Patient Stated Goal: to increase independence, to go home Goals to be met by: 07/11/25 Patient will transition from supine to sit: Independent, head of bed flat, without bedrails Patient will transition from sit to supine: Independent, head of bed flat, without bedrails Patient will transfer from sit to stand: Stand-By assistance, while maintaining weight-bearing precautions Patient will ambulate: Contact Guard assistance, with assistive device, distance (in feet) Ambulation Assistance Device: Least restrictive asistive device Distance (in feet): 50' Patient will participate in bilateral lower extremeity HEP in preperation for further functional mobility: 10 repetitions Pt Will report pain with functional mobility at: 4/10 or less Long-term goal to be met by: 07/18/25 Long-Term Goal : Pt will participate in stair assessment Patient/Family Education Educated patient on the role of physical therapy and fall prevention strategies, including use of call light; patient verbalized understanding. Handout(s) issued: none. Plan Plan Treatment/Interventions: LE strengthening/ROM, Endurance training, Patient/family training, Gait training, Equipment eval/education, Compensatory technique education, Continued evaluation, Stair Training, Therapeutic Activity, Therapeutic Exercise PT Frequency during hospitalization: minimum 3x/week The plan of care and recommendations assesses the patient's and/or caregiver's readiness, willingness, and ability to provide or support functional mobility and ADL tasks as needed upon discharge. Time Start Time: 1332 Stop Time: 1357 Time Calculation (min): 25 min Charges $Gait/Mobility: 8-22 mins $Therapeutic Activity: 1 unit Problem List Problem List[1] Past Medical History Past Medical History: Diagnosis Date Hypercholesteremia Hypertension Past Surgical History Past Surgical History: Procedure Laterality Date BACK SURGERY [1] There is no problem list on file for this patient. * LUC Doyle - 07/08/2025 11:52 AM EST ACUTE CARE SURGERY PROGRESS NOTE Admit Date: 07/03/2025 OR Date: 07/08/2025 Subjective: Vitals stable on room air BM x 2 Plan for flex sig with GI today Objective: Vitals: Temp: [97.7 ??F (36.5 ??C)-98.6 ??F (37 ??C)] 97.7 ??F (36.5 ??C) Heart Rate: [87-98] 96 Resp: [16-46] 17 BP: (109-161)/(61-90) 123/82 Vitals: 07/08/25 0857 BP: 123/82 Pulse: 96 Resp: 17 Temp: 97.7 ??F (36.5 ??C) SpO2: 96% Date 07/07/25 0700 - 07/08/25 0659 07/08/25 0700 - 07/09/25 0659 Shift 6921-0522 4457-3866 0652-3704 24 Hour Total 0258-1832 8713-9279 1413-7948 24 Hour Total INTAKE P.O. 240 200 440 P.O. 240 200 440 Shift Total(mL/kg) 240(3.1) 200(2.6) 440(5.7) OUTPUT Urine(mL/kg/hr) 400(0.6) 400(0.2) Urine 400 400 Urine Occurrence 1 x 3 x 4 x 1 x 1 x Stool Stool Occurrence 1 x 1 x 2 x 2 x 2 x Shift Total(mL/kg) 400(5.2) 400(5.2) Weight (kg) 77.1 77.1 77.1 77.1 77.1 77.1 77.1 77.1 Physical Exam: Gen: Alert and oriented x 3, no acute distress HEENT: NCAT, PERRL CV: Regular rate Resp: No respiratory distress Abd: Soft, non-distended, non-tender Ext: Warm and well perfused Recent Labs 07/06/25 0302 07/07/25 0344 07/08/25 0322 WBC 5.1 5.2 5.2 HGB 8.3* 8.5* 9.8* HCT 25.3* 26.7* 30.5* MCV 77.1* 77.5* 75.4* PLT 426* 411* 513* Recent Labs 07/06/25 0302 07/07/25 0344 07/08/25 032 NA 137 136 137 K 3.9 3.7 3.8 CL 105 104 103 CO2 22 24 20* PHOS 2.9 3.4 3.2 BUN 12 12 15 CREATININE 0.61 0.73 0.85 CALCIUM 9.0 8.9 9.7 No results for input(s): POCGLU , POCGMD in the last 72 hours. Invalid input(s): GLU No results for input(s): BILITOT , AST , ALT , ALKPHOS , GGT , AMYLASE , LIPASE in the last72 hours. Invalid input(s): BILIDIR , 5NUC , ALB No results for input(s): INR , PROTIME in the last 72 hours. Current Medications: Scheduled Medications: apixaban, 5 mg, BID atorvastatin, 10 mg, Nightly (2100) gabapentin, 300 mg, TID pantoprazole, 40 mg, DAILY 0600 senna-docusate, 1 tablet, BID simethicone, 80 mg, PC/HS IV Meds: PRN Medications: acetaminophen, 975 mg, Q8H PRN calcium carbonate, 500 mg, TID PRN diphenhydrAMINE, 25 mg, Nightly PRN hydrALAZINE, 10 mg, Q6H PRN methocarbamoL, 500 mg, 4x Daily PRN ondansetron, 4 mg, Q6H PRN Imaging: No results found. Assessment / Plan: Gladys Feliciano is a 79 y.o. female with past medical history significant for HTN, HLD, GERD/hiatal hernia, chronic back pain, and a provoked DVT who presented on 07/03 with abdominal pain and distention with CT findings concerning for large bowel obstruction vs. Starr's Syndrome. Ogilvies vs Splenic Flexure Narrowing - GI consulted - Not a candidate for endoscopic colonic decompression or neostigmine - Plan for flexible sigmoidoscopy today, prep complete - CEA elevated - NPO for procedure, okay for diet after HTN/HLD - Home statin resumed GERD Hiatal Hernia - Continue home PPI Provoked DVT (after spinal surgery) - Home Eliquis resumed Chronic Pain - Home gabapentin resumed Please page ACS rafa [phone]) with any questions/concerns. Kaylan Aguilar PA-C Division of Surgery Trauma/Acute Care Surgery Cosigned by Diaz Cavazos MD at 07/08/2025 1:12 PM EST Associated attestation - Diaz Cavazos MD - 07/08/2025 1:12 PM EST Attending Attestation: This patient was seen by the Advanced Practice Provider/Resident team and I have personally seen and examined this patient today (07/08/2025), discussed the plans with the resident/BALTAZAR, and agree withtheir findings and plan documented in their note. My assessment reveals the followin yo F presented with abdominal distention Tolerating a diet, abdomen soft +BMs Abd soft, NT, ND. Having bowel function, occasional gassy cramping. Anxious about flex sig today. Note of elevated CEA. Ogilvies vs splenic flexure tapering - flex sig today with GI DVT - continue eliquis Hiatal hernia - PPI, minimal symptoms, no acute intervention - recommend EGD at some point Chronic anemia - follow hgb, may need follow-up with PCP. Daily CBC Multiple falls, fxs - minimize opioid use - PT/OT to eval for placement Hx clavicle frx - in a sling Dispo planning - to SNF Medical decision making included the following: Acute or chronic illness or injury that poses a threat to life or bodily function: LBO vs ileus Prescription drug management: yes DIAZ CAVAZOS MD Attending Surgeon Division of Trauma, Surgical Critical Care, and Acute Care Surgery * Iliana Patterson RN - 07/08/2025 11:24 AM EST Acute Care Surgery Nurse Clinician Daily Progress Note Admission Date: 07/03/2025 : 1945 Age: 79 y.o. PCP: Placido Mercado MD PCP Confirmed: yes Phone: # [phone] Fax: # HPI: 79 y.o. female with a PMH of HTN, HLD, GERD/hiatal hernia, chronic back pain, and a provoked DVT (on eliquis) who presents with abdominal pain and distention with CT findings concerning for large bowel obstruction. Per patient, has had issues with irregular bowels and dysmotility for several years now. Regulated with miralax. In the past year has had several orthopedic injuries/interventions requiring opioid pain medication including a spinal fusion and more recently a right clavicular fracture two weeks ago.However experienced acute on chronic abdominal pain, nausea, and distention over the last 24 hours,prompting presentation to an OSH ED. ED work up including CT AP with concerns for large bowel obstruction. Has had EGD and colonscopy within the last year as part of a work up for anemia. No source of bleeding was identified, however was told that she had polyps removed and would need a repeat colonscopy in 3 years. On arrival to ED, found to be hemodynamically stable with hyponatremia (131), hypokalemia (3.4),hypochloremia (97), and anemia (8.8). No lactic acidosis. Diagnosis: Active Problems: * No active hospital problems. * Large bowel obstruction vs. Mosier's Syndrome. *Transfer from OSH Procedures performed: 07/08 GI s/p Wounds: none Lines/Drains/Tubes: none Nutrition/Diet: Diet/Nutrition Orders Diet NPO past midnight Except for: except meds Frequency: Effective Number of Occurrences: Until Specified Order Questions: Except for except meds DVT Prophylaxis: HSQ Antibiotics: none Weight Bearing Status: full, Hx clavicle frx - in a sling PT Recs: Recommendation: Short-term skilled PT (recommend 5x/week at discharge) Equipment Recommended: Defer until further assessment, Defer to facility to obtain OT Recs: Recommendation: Short-term skilled OT (recommend 5x/week at discharge) Equipment Recommendations: None Incidental Findings: 07/02 at OSH- none identified No CTs this admission Assessment/Plan: Presents from OSH with abdominal pain and distention with CT findings concerning for large bowel obstruction. Continue conservative management, patient tolerating PO intake and having regular BMs with x2 recorded in the last day. Plan for tap water enema today and flex sig with GI. Elevated CEA noted. WBC remains WNL at 5 today. Encourage patient to be OOB to chair and ambulating as tolerated with nursing assistance. PT/OT with recommendations at discharge for SNF. Anticoagulation at discharge: history of provoked DVT (on eliquis) Consults and Follow up plans: GI- evaluation of possible Olgivie's Syndrome and decompression. Follow up appointments: No future appointments. ACS follow up prn May need GI follow up scheduled Per attending Brittney's note on 07/08: Chronic anemia - follow hgb, may need follow-up with PCP. Daily CBC Discharge Planning: Insurance: Insurance Information [employer] MEDICARE/[employer] PLUS MEDICARE Phone: -- Subscriber: Gladys Feliciano Subscriber#: [id number] Group#: [id number] Precert#: -- Authorization#: [id number] Effective Date: -- Disposition: Anticipate possible discharge tomorrow vs . PT/OT with new recs for SNF. SW updated and following along. *From [facility], ~1.5 hours away note 07/03- DME use including rolling walker, rollator, and shower chair. Patient has history ofskilled nursing facility admissions and/or inpatient rehabilitation facility admissions. Went to [facility] in the past. Patient has history of home health care services. Reports she is active with [facility] for PT/OT/SN. Referrals sent to: [facility] and [facility] Date: 07/05 Accepted by: [facility] Date: 07/07, requesting updated PT/OT notes Insurance Pre-cert needed: yes Pre-cert date started: 07/08 with updated PT/OT noted Pre-cert date obtained: Equipment: none Barriers to discharge: Patient will need recovery including pain control on oral medications, tolerating regular diet and return of bowel function. Discussed plan of care and/or discharge plan with social work. Acute Care Surgery discharge instructions added/reviewed/updated to/in discharge navigator. * Graciela Plummeratiya, OT - 07/07/2025 2:29 PM EST Occupational Therapy Treatment Name: Gladys Feliciano : 1945 Attending Physician: Shannon Campa MD Admission Diagnosis: SBO (small bowel obstruction) (CMS-HCC) [K56.609] Date: 07/07/2025 Room: [facility] Reviewed Pertinent hospital course: Yes Hospital Course PT/OT: 79 y/o female from OSH p/w concern for large bowel obstruction vs Starr's syndrome. 07/04: KUB suggestive of ileus. Relevant PMH : HTN, HLD, GERD/hiatal hernia, chronic back pain, and a provoked DVT (on eliquis) Precautions: NWB RUE due to recent RUE fx Activity Level: Activity as tolerated Assist: None Pt's son provided chair follow. Recommendation Recommendation: Short-term skilled OT (recommend 5x/week at discharge) Equipment Recommendations: None Assessment Assessment: Decreased Balance, Decreased activity tolerance, Decreased ADL status, Decreased UE ROM, Decreased self-care transfers, Decreased Functional Mobility Prognosis for OT goals: Good Outcome Measures AM-PAC 6 Clicks Daily Activity Inpatient Short Form: OT 6 Clicks Score: 14 Cognition Overall Cognitive Status: Within Functional Limits Arousal/Alertness: Alert Orientation Level: Oriented X4 Behavior: Appropriate;Cooperative;Motivated Following Commands: Follows all commands and directions without difficulty Safety Judgment: (Followed safety instructions well) Insight: Decreased awareness of need for assistance Pain Pain Score: (no c/o pain with OT) Exercises Exercises Exercises Comment: Declined ROM or pendulum to RUE. Reports has been able to perform ther ex from her HEP. Son at bedside concurred. Functional Mobility Bed Mobility Supine to Sit: (Not tested. Pt in recliner at start and end of session.) Functional Transfers Other Transfers/ Comments: MOD A: sit<>stand from recliner, cues for [id number] method (light assist for sit>stand), rollator Functional Mobility: Moderate assistance;increased time to complete task Functional Mobility Comment: Initial ambulating with rollator per wish to try (plus had been home routine), however, pt unsteady. No buckling. Recommended handhold assist, and pt agreeable. MOD A forbalance. Recliner <> hallway-level mobility to simulate household distances. Tolerated ~7 minutes, required cues to take 2 standing rest breaks. Observed increased fatigue with decreased clearan ce L foot (reports wears orthosis/AFO baseline). Balance Sitting - Static: Stand-by assistance Sitting - Dynamic: (not tested) Standing - Static: Minimal Assistance Standing - Dynamic: Moderate Assistance Gait belt used: Yes ADL Toileting: (No need with OT) Additional Comments: Declined additional BADLs. Position after Treatment/Safety Handoff Position after therapy session: Recliner Details: visitor present;Call light/ needs within reach Alarms: Chair Alarms Status: Activated and Interfaced with call system Goals Goals to be met in: 1 week: Patient stated goal: to increase activity, to increase independence Patient will complete supine to sit in prep for ADLs: Supervision Patient will complete functional chair transfer: Stand-by assistance Patient will complete toilet transfer: Stand-by assistance Patient will complete grooming task: Stand-by assistance (standing sinkside) Patient will complete upper body dressing: Will tolerate assessment Patient will complete lower body dressing: Will tolerate assessment Pt Will tolerate completeing ADLs with pain less than 4/10: . senior care goal to be met in: 2 weeks: Patient will participate in UB/LB bathing task assessment. Collaborated with: Patient, Family Plan Plan Treatment Interventions: ADL retraining, Activity Tolerance training, IADL retraining, Energy Conservation, Equipment eval/education, Functional transfer training, Patient/Family training, UE strengthening/ROM, Therapeutic Activity, Compensatory technique education, Lower Extremity Intervention, Excercise OT Frequency during hospitalization: minimum 3x/week The plan of care and recommendations assesses the patient's and/or caregiver's readiness, willingness, and ability to provide or support functional mobility and ADL tasks as needed upon discharge. Patient/Family Education Educated patient and patient's family on OT goals, energy conservation techniques, and functional mobility training and fall prevention strategies including need for supervision/ assistance with OOB activity and use of call light. patient and patient's family verbalized understanding. OT Time Start Time: 1406 Stop Time: 1429 Time Calculation (min): 23 min OT Charges $Therapeutic Activity: 23-37 mins Problem List Problem List[1] Past Medical History Past Medical History: Diagnosis Date Hypercholesteremia Hypertension Past Surgical History Past Surgical History: Procedure Laterality Date BACK SURGERY [1] There is no problem list on file for this patient. * Iliana Patterson RN - 07/07/2025 1:09 PM EST Acute Care Surgery Nurse Clinician Daily Progress Note Admission Date: 07/03/2025 : 1945 Age: 79 y.o. PCP: Placido Mercado MD PCP Confirmed: yes Phone: # [phone] Fax: # HPI: 79 y.o. female with a PMH of HTN, HLD, GERD/hiatal hernia, chronic back pain, and a provoked DVT (on eliquis) who presents with abdominal pain and distention with CT findings concerning for large bowel obstruction. Per patient, has had issues with irregular bowels and dysmotility for several years now. Regulated with miralax. In the past year has had several orthopedic injuries/interventions requiring opioid pain medication including a spinal fusion and more recently a right clavicular fracture two weeks ago.However experienced acute on chronic abdominal pain, nausea, and distention over the last 24 hours,prompting presentation to an OSH ED. ED work up including CT AP with concerns for large bowel obstruction. Has had EGD and colonscopy within the last year as part of a work up for anemia. No source of bleeding was identified, however was told that she had polyps removed and would need a repeat colonscopy in 3 years. On arrival to ED, found to be hemodynamically stable with hyponatremia (131), hypokalemia (3.4),hypochloremia (97), and anemia (8.8). No lactic acidosis. Diagnosis: Active Problems: * No active hospital problems. * Large bowel obstruction vs. Mosier's Syndrome. *Transfer from OSH Procedures performed: none Wounds: none Lines/Drains/Tubes: none Nutrition/Diet: Diet/Nutrition Orders Diet Regular(7) Frequency: Effective Now Number of Occurrences: Until Specified Order Questions: Suicide/Behavior Risk Modification? No DVT Prophylaxis: HSQ Antibiotics: none Weight Bearing Status: full, Hx clavicle frx - in a sling PT Recs: Recommendation: Short-term skilled PT (recommend 5x/week at discharge) Equipment Recommended: Defer until further assessment, Defer to facility to obtain OT Recs: Recommendation: Short-term skilled OT (recommend 5x/week at discharge) Equipment Recommendations: None Incidental Findings: 07/02 at OSH- none identified No CTs this admission Assessment/Plan: Presents from OSH with abdominal pain and distention with CT findings concerning for large bowel obstruction. Continue conservative management, patient tolerating PO intake and having regular BMs with x2 recorded in the last day. Will revisit flex sig vs colonoscopy with GI, will check CEA and consider CTwith rectal contrast to better evaluate splenic flexure tapering. GI consult with no indication for endoscopic colonic decompression of neostigmine at this time. Will follow up for final recs today. WBC remains WNL at 5 today. Encourage patient to be OOB to chair and ambulating as tolerated with nursing assistance. PT/OT with recommendations at discharge for SNF. Anticoagulation at discharge: history of provoked DVT (on eliquis) Consults and Follow up plans: GI- evaluation of possible Olgivie's Syndrome and decompression. Follow up appointments: No future appointments. ACS follow up prn May need GI follow up for colonoscopy outpatient - GI following - Not a candidate for endoscopic colonic decompression or neostigmine - Will discuss possible scope for concern regarding splenic flexure narrowing. If unable to do thisadmission, will need as outpatient. Discharge Planning: Insurance: Insurance Information [employer] PLUS MEDICARE Phone: -- Subscriber: Gladys Feliciano Subscriber#: [id number] Group#: [id number] Precert#: -- Authorization#: [id number] Effective Date: -- Disposition: Anticipate possible discharge tomorrow vs Monday. PT/OT with new recs for SNF. SW updated and following along. *From [facility], ~1.5 hours away SW note 07/03- DME use including rolling walker, rollator, and shower chair. Patient has history ofskilled nursing facility admissions and/or inpatient rehabilitation facility admissions. Went to [facility] in [place] in the past. Patient has history of home health care services. Reports she is active with [facility] for PT/OT/SN. Referrals sent to: [facility] and [facility] Date: 07/05 Accepted by: [facility] Date: 07/07, requesting updated PT/OT notes Insurance Pre-cert needed: yes Pre-cert date started: Pre-cert date obtained: Equipment: none Barriers to discharge: Patient will need recovery including pain control on oral medications, tolerating regular diet and return of bowel function. Discussed plan of care and/or discharge plan with social work. Acute Care Surgery discharge instructions added/reviewed/updated to/in discharge navigator. * Roseline Daigle CNP - 07/07/2025 11:04 AM EST Surgery Progress Note Patient: Gladys Feliciano Admit Date: 07/03/2025 24h events Continues to have regular BMs. Tolerating some PO (only 240mL recorded). WBC 5.2 OBJECTIVE Vitals: Temp: [97.6 ??F (36.4 ??C)-98.8 ??F (37.1 ??C)] 97.6 ??F (36.4 ??C) Heart Rate: [83-87] 85 Resp: [16-18] 18 BP: (118-156)/(51-85) 141/85 Physical Exam: Gen: NAD, A+Ox3 CV: Regular rate Resp: Equal chest wall rise and fall, no respiratory distress on room air Abd: Soft, distended, nontender Ext: Warm and well perfused Labs: Recent Labs 07/05/25 0938 07/06/25 0302 07/07/25 0344 WBC 5.7 5.1 5.2 HGB 8.8* 8.3* 8.5* HCT 27.5* 25.3* 26.7* PLT 419* 426* 411* Recent Labs 07/05/25 0938 07/06/25 0302 07/07/25 0344 NA 134 137 136 K 4.0 3.9 3.7 CL 102 105 104 CO2 23 22 24 BUN 9 12 12 CREATININE 0.68 0.61 0.73 GLUCOSE 133* 81 86 CALCIUM 9.0 9.0 8.9 MG 1.8 1.7 1.6 PHOS 2.9 2.9 3.4 No results for input(s): POCGLU , POCGMD in the last 72 hours. Invalid input(s): GLU Recent Labs 07/05/25 0938 07/06/25 0302 07/07/25 0344 ALBUMIN 3.6 3.5 3.5 No results for input(s): INR , PROTIME in the last 72 hours. Current Medications: Scheduled Meds: apixaban 5 mg Oral BID atorvastatin 10 mg Oral Nightly (2099) gabapentin 300 mg Oral TID magnesium sulfate 4 g Intravenous Once pantoprazole 40 mg Oral DAILY 0600 potassium chloride 20 mEq Oral Once senna-docusate 1 tablet Oral BID simethicone 80 mg Oral PC/HS sod phos di, mono-K phos mono 500 mg Oral Q4H traZODone 25 mg Oral Nightly (2099) Continuous Infusions: PRN Meds: acetaminophen, calcium carbonate, hydrALAZINE, methocarbamoL, ondansetron ASSESSMENT/PLAN Gladys Feliciano is a 79 y.o. female with a PMHx of HTN, HLD, GERD/hiatal hernia, chronic back pain, and a provoked DVT who presented on 07/03 with abdominal pain and distention with CT findings concerning for large bowel obstruction vs. Mosier's Syndrome. Ogilvies vs Splenic Flexure Narrowing - GI following - Not a candidate for endoscopic colonic decompression or neostigmine - Will discuss possible scope for concern regarding splenic flexure narrowing. If unable to do thisadmission, will need as outpatient. - CEA - Continue regular diet with bowel regimen HTN/HLD - Home statin resumed GERD Hiatal Hernia - PPI Provoked DVT (after spinal surgery) - Eliquis resumed Chronic Pain - Home gabapentin resumed Dispo: Floor, med ready for SNF in 1-2 days pending GI recs today Roseline Daigle, [place] Department of Surgery Division of Trauma, Surgical Critical Care, and Acute Care Surgery Cosigned by Diaz Cavazos MD at 07/07/2025 11:35 AM EST Associated attestation - Diaz Cavazos MD - 07/07/2025 11:35 AM EST Attending Attestation: This patient was seen by the Advanced Practice Provider/Resident team and I have personally seen and examined this patient today (07/07/2025), discussed the plans with the resident/BALTAZAR, and agree withtheir findings and plan documented in their note. My assessment reveals the followin yo F presented with abdominal distention Tolerating a diet, abdomen soft +BMs Abd soft, NT, ND. Having bowel function, occasional gassy cramping Ogilvies vs splenic flexure tapering - senna-S BID, miralax titrated to 1-2 soft BM per day (take only if no BM the day prior) - reg diet - will revisit flex sig vs colonoscopy with GI, will check CEA.can also consider CTAP with rectal contrast to better evaluate splenic flexure tapering DVT - continue eliquis Hiatal hernia - PPI, minimal symptoms, no acute intervention - recommend EGD at some point Chronic anemia - follow hgb, may need follow-up with PCP. Daily CBC Multiple falls, fxs - minimize opioid use - PT/OT to eval for placement Hx clavicle frx - in a sling Dispo planning - to [facility] Medical decision making included the following: Acute or chronic illness or injury that poses a threat to life or bodily function: LBO vs ileus Prescription drug management: yes DIAZ CAVAZOS MD Attending Surgeon Division of Trauma, Surgical Critical Care, and Acute Care Surgery * Steffanie Corcoran MD - 07/06/2025 7:07 AM EST Surgery Progress Note Patient: Gladys Feliciano Admit Date: 07/03/2025 24h events No acute events overnight Continues to have bowel function Tolerating regular diet OBJECTIVE Vitals: Temp: [97.7 ??F (36.5 ??C)-98.2 ??F (36.8 ??C)] 97.7 ??F (36.5 ??C) Heart Rate: [85-94] 94 Resp: [16-20] 16 BP: (142-148)/(76-92) 148/76 Physical Exam: Gen: NAD, A+Ox3 CV: RRR Resp: no respiratory distress, on RA Abd: Soft, distended, nontender Ext: Warm and well perfused Labs: Recent Labs 07/04/2545307/05/25 0938 07/06/25 0302 WBC 7.0 5.7 5.1 HGB 8.3* 8.8* 8.3* HCT 25.7* 27.5* 25.3* PLT 426* 419* 426* Recent Labs 07/04/2545307/05/25 0938 07/06/25 0302 NA 133 134 137 K 4.5 4.0 3.9 CL 104 102 105 CO2 24 23 22 BUN 14 9 12 CREATININE 0.72 0.68 0.61 GLUCOSE 119* 133* 81 CALCIUM 9.0 9.0 9.0 MG 2.8* 1.8 1.7 PHOS 3.8 2.9 2.9 No results for input(s): POCGLU , POCGMD in the last 72 hours. Invalid input(s): GLU Recent Labs 07/04/2545307/05/25 0938 07/06/25 0302 ALBUMIN 3.5 3.6 3.5 No results for input(s): INR , PROTIME in the last 72 hours. Current Medications: Scheduled Meds: atorvastatin 10 mg Oral Nightly (2099) bisacodyL 10 mg Rectal Once gabapentin 300 mg Oral TID heparin 5,000 Units Subcutaneous 3 times per day pantoprazole (PROTONIX) IV 40 mg Intravenous DAILY 0600 polyethylene glycol 17 g Oral Daily 0900 senna-docusate 1 tablet Oral BID Continuous Infusions: PRN Meds: calcium carbonate, hydrALAZINE, methocarbamoL, ondansetron, oxyCODONE OR oxyCODONE ASSESSMENT/PLAN Gladys Feliciano is a 79 y.o. 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 Colonic Dysmotility - GI following - Advance to Regular diet - Miralax/Senna once dailys - Discontinue suppositories - Minimize narcotic use - PT/OT recommend SNF HTN HLD - hold statin - prns for htn GERD Hiatal Hernia - IV PPI Provoked DVT (after spinal surgery) - Will restart Eliquis today Chronic Pain - MMPR - minimize narcotics as able Steffanie Corcoran MD Surgery Resident 07/06/2025 Cosigned by Tan Ward MD at 07/06/2025 11:36 AM EST Associated attestation - Tan Ward MD - 07/06/2025 11:36 AM EST Surgery Attending This patient was seen by the [facility] and surgery team. I have personally seen and examined this patienton 07/06/2025. I have discussed the patient's management with the team and have reviewed and agree with the attached note. My independent assessment also reveals: 79 yo F presented with abdominal distention CT w concern for LBO +BMs Abd soft, NT, ND Ogilvies vs splenic flexure tapering - senna-S BID, miralax titrated to 1-2 soft BM per day (take only if no BM the day prior) - reg diet - colonoscopy as outpt if tolerating diet and having bowel function DVT - restart eliquis Hiatal hernia - PPI, minimal symptoms, no acute intervention - recommend EGD at some point Chronic anemia - follow hgb, may need follow-up with PCP Multiple falls, fxs - minimize opioid use - PT/OT to eval for placement - SNF Dispo planning - to SNF Medical decision making included the following: Acute or exacerbated chronic illness that poses a threat to life or bodily function: constipation Prescription drug management: yes Parenteral controlled substances: no Drug therapy requiring intensive monitoring for toxicity: no Patient's care discussed with the following other services: GI Tan Ward MD General Surgeon Section of General Surgery [facility] * Sola Garcia, OT - 07/05/2025 3:47 PM EDT Occupational Therapy Initial Assessment and Treatment Name: Gladys Feliciano : 1945 Attending Physician: Shannon Campa MD Admission Diagnosis: SBO (small bowel obstruction) (CMS-HCC) [K56.609] Date: 07/05/2025 Room: [address] [place] [address] Reviewed Pertinent hospital course: Yes Hospital Course PT/OT: 79 y/o female from OSH p/w concern for large bowel obstruction vs Starr's syndrome. 07/04: KUB suggestive of ileus. Relevant PMH : HTN, HLD, GERD/hiatal hernia, chronic back pain, and a provoked DVT (on eliquis) Precautions: NWB RUE due to recent RUE fx Activity Level: Activity as tolerated Assist: Co-evaluation performed Recommendation Recommendation: Short-term skilled OT (recommend 5x/week at discharge) Equipment Recommendations: None Assessment Assessment: Decreased IADLs, Decreased activity tolerance, Decreased Functional Mobility, DecreasedADL status, Decreased Balance, Decreased self-care transfers, Decreased UE ROM Prognosis for OT goals: Good Outcome Measures AM-PAC 6 Clicks Daily Activity Inpatient Short Form: OT 6 Clicks Score: 14 Home Living/Prior Function Patient able to provide accurate information at this time: Yes Lives With: Son (53 y/o son) Assistance available: some (not 24 hour) assistance (kids work) Type of Home: House Home Entry: 1 step to enter Home Layout: One level Bathroom Shower/Tub: Walk-in shower Bathroom Equipment: Shower chair Home Equipment: Rollator, Single-point cane, Rolling Walker Prior Function Functional Mobility: Modified Independent, with assistive device Uses Assistive Device: Rollator Receives Help From: Family ADL Assistance: Needs assistance Needs assistance with: Dressing, Toileting, Bathing (help from daughters) IADL Assistance: Needs assistance (assist from son and cleaning lady) Leisure: Hobbies-yes (Comment) Leisure Activities: reading Currently recieving therapy services: Yes Therapy services currently receiving: Home therapy Pain Pain Score: 8 Pain Location: Shoulder (R) Pain Descriptors: Aching;Discomfort Pain Intervention(s): Ambulation/increased activity;Repositioned Therapist reported pain to: RN provided pain medication at end of session Cognition Overall Cognitive Status: Within Functional Limits Cognitive Assessment: Arousal/ Alertness;Orientation Level;Behavior;Following Commands;Safety Judgment;Insight;Communication Arousal/Alertness: Alert Orientation Level: Oriented X4 Behavior: Appropriate;Cooperative Following Commands: Follows all commands and directions without difficulty Safety Judgment: Decreased safety awareness;Decreased awareness of safety precautions;Decreased awareness of need for assistance Insight: Demonstrated decreased insight into limitations and abilities to complete ADLs safely Communication: Verbalization Vision/Hearing/Perception Hearing: No hearing deficits noted Baseline Vision: Wears glasses only for reading Overall Vision/ Perception: Within Functional Limits Right Upper Extremity Right UE ROM: (elbow > digits WFLs; no sh ROM 2/2 recent fx) Right UE Strength: Grossly WFL (at least 3+/5) as observed during functional activities Right UE Muscle Tone: Normal Right Hand Function: Grossly WFL as observed during functional activity Right UE Additional Comment: pt reports her home OT has been having her complete pendulum exerciseswhile sitting at the edge of her chair; pt did not tolerate her UE on 2 pillows seated in the chairbut w UE adducted, she did tolerate 1 pillow Right Hand Dominant: Yes Left Upper Extremity Left UE ROM: Grossly WFL as observed during functional activities Left UE Strength: Grossly WFL (at least 3+/5) as observed during functional activities Left UE Muscle Tone: Normal Left UE Hand Function: Grossly WFL as observed during functional activites Neuromuscular Overall Sensation: Patient denies any numbness/ tingling in BUE's/ BLEs Functional Mobility Bed Mobility Supine to Sit: Contact guard assistance;head of bed elevated;increased time to complete task;towards the left;use of handrail Transfers Sit to Stand: Contact guard assistance (from EOB up to rollator) Toilet Transfers: Contact guard assistance;grab bar;increased time to complete task Functional Mobility: Minimal assistance (ambulate in room to/from bathroom w rollator (one-handed) vs LIBRARY SPECIALIST x1) Balance Sitting - Static: Independent Sitting-Dynamic: Stand by assistance Standing-Static: Contact Guard Assistance Standing-Dynamic: Minimal Assistance (w LIBRARY SPECIALIST x1) Gait belt used: Yes ADL Grooming: Moderate assistance (wash L hand standing sinkside) Toileting: Maximum assistance (clothing mgmt up/down for toileting; S complete perihygiene after urinating) Treatment provided during OT evaluation: Activities of Daily Living Treatment provided during/after evaluation Total treatment time (minutes): 20' Self Care/ ADL Training: Education on safety and technique provided throughout functional mobility and ADL completion. Position after Treatment/Safety Handoff Position after therapy session: Recliner Details: RN notified;Call light/ needs within reach;UE elevated on pillow for edema control;visitorpresent Alarms: Chair Alarms Status: Activated and Interfaced with call system Plan Plan Treatment Interventions: ADL retraining, Activity Tolerance training, IADL retraining, Energy Conservation, Equipment eval/education, Functional transfer training, Patient/Family training, UE strengthening/ROM, Therapeutic Activity, Compensatory technique education, Lower Extremity Intervention, Excercise OT Frequency during hospitalization: minimum 3x/week The plan of care and recommendations assesses the patient's and/or caregiver's readiness, willingness, and ability to provide or support functional mobility and ADL tasks as needed upon discharge. Goals Goals to be met in: 1 week: Patient stated goal: to increase activity, to increase independence Patient will complete supine to sit in prep for ADLs: Supervision Patient will complete functional chair transfer: Stand-by assistance Patient will complete toilet transfer: Stand-by assistance Patient will complete grooming task: Stand-by assistance (standing sinkside) Patient will complete upper body dressing: Will tolerate assessment Patient will complete lower body dressing: Will tolerate assessment Pt Will tolerate completeing ADLs with pain less than 4/10: . 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 Collaborated with: Patient, Family Patient/Family Education Educated patient and patient's family on the role of occupational therapy, OT goals, OT plan of care, and discharge recommendation and fall prevention strategies including need for supervision/ assistance with OOB activity and use of call light. patient and patient's family verbalized understandingand demonstrated understanding. OT Time Start Time: 1248 Stop Time: 1336 Time Calculation (min): 48 min OT Charges $OT Evaluation Mod Complex 45 Min: 1 Procedure $Self Care/ADL/Home Management Trainin-22 mins Problem List Problem List[1] Past Medical History Past Medical History: Diagnosis Date Hypercholesteremia Hypertension Past Surgical History Past Surgical History: Procedure Laterality Date BACK SURGERY [1] There is no problem list on file for this patient. * Patricia Doan, PT - 07/05/2025 2:38 PM EDT Physical Therapy Initial Assessment Name: Gladys Feliciano : 1945 Attending Physician: Shannon Campa MD Admission Diagnosis: SBO (small bowel obstruction) (CMS-HCC) [K56.609] Date: 07/05/2025 Room: [address] [place] [address] Reviewed Pertinent hospital course: Yes Hospital Course PT/OT: 79 y/o female from OSH p/w concern for large bowel obstruction vs Mosier's syndrome. 07/04: KUB suggestive of ileus. Relevant PMH : HTN, HLD, GERD/hiatal hernia, chronic back pain, and a provoked DVT (on eliquis) Precautions: NWB RUE due to recent RUE fx Activity Level: Activity as tolerated Assist: Co-evaluation performed Assessment Assessment: Impaired Bed Mobility, Impaired Transfers, Impaired Gait, Impaired Balance, Impaired Strength, Impaired ROM, Impaired Safety Awareness, Impaired Stair Negotiation, Impaired Activity Tolerance, Deconditioning Prognosis: Fair Pt is cooperative with PT this date. States she had a fall a few weeks ago where she broke a bone in her R shoulder (tender to palpation over R scapular spine) and maintains NWB RUE in sling throughout session. Pt states she has been ambulating with rollator, holding onto it with LUE and intermittently pushing it with RUE - discussed that this does not align with NWB restriction. Pt requires minAto ambulate to/from bathroom with rollator vs L hand-held assist, very unsteady throughout. Pt and daughter in agreement that pt is unsafe to return home at this time as she does not have 24 hr assist and remains a high fall risk in the setting of recent fall. Pt demonstrates impaired balance, strength, endurance, and activity tolerance and will continue to benefit from skilled physical therapy to address functional mobility impairments. Recommendation Recommendation: Short-term skilled PT (recommend 5x/week at discharge) Equipment Recommended: Defer until further assessment, Defer to facility to obtain AM-PAC 6 Clicks Basic Mobility Inpatient Short Form: PT 6 Clicks Score: 16 Mobility Recommendations for Staff Patient ability: Patient ambulates in room/ to bathroom (with L hand-held assist) Assist needed: with 1 person assist Equipment/ Precautions needed: use gait belt, Has precautions Precautions: NWB RUE Home Living/Prior Function Patient able to provide accurate information at this time: Yes Lives With: Son (53 y/o son) Assistance available: some (not 24 hour) assistance (kids work) Type of Home: House Home Entry: 1 step to enter Home Layout: One level Bathroom Shower/Tub: Walk-in shower Bathroom Equipment: Shower chair Home Equipment: Rollator;Single-point cane;Rolling Walker Prior Function Functional Mobility: Modified Independent;with assistive device Uses Assistive Device: Rollator Receives Help From: Family ADL Assistance: Needs assistance Needs assistance with: Dressing;Toileting;Bathing (help from daughters) IADL Assistance: Needs assistance (assist from son and cleaning lady) Leisure Activities: reading Therapy services currently receiving: Home therapy Pain Pain Score: 8 Pain Location: Shoulder (R) Pain Descriptors: Aching;Discomfort Pain Intervention(s): Ambulation/increased activity;Repositioned Therapist reported pain to: RN provided pain medication at end of session Vision Hearing/Vision/Perception Hearing: No hearing deficits noted Baseline Vision: Wears glasses only for reading Overall Vision/ Perception: Within Functional Limits Cognition Overall Cognitive Status: Within Functional Limits Cognitive Assessment: Arousal/ Alertness;Orientation Level;Behavior;Following Commands;Safety Judgment;Insight;Communication Arousal/Alertness: Alert Orientation Level: Oriented X4 Behavior: Appropriate;Cooperative Following Commands: Follows all commands and directions without difficulty Safety Judgment: Decreased safety awareness;Decreased awareness of safety precautions;Decreased awareness of need for assistance Insight: Demonstrated decreased insight into limitations and abilities to complete ADLs safely Communication: Verbalization Neuromuscular Overall Sensation: Patient denies any numbness/ tingling in BUE's/ BLEs Upper Extremity UE Assessment: Defer to OT evaluation for formal assessment *See OT note for additional details on pt's self-reported RUE restrictions. Discussed with primary team for clarification. Lower Extremity Lower Extremity LE Assessment: Strength WFL (at least 3+/5) as observed during functional activity;ROM grossly WFL Functional Mobility Bed Mobility Supine to Sit: Stand by assistance;head of bed elevated;towards the left Transfers Sit to Stand: Contact guard assistance;cues for hand placement (from EOB and toilet with increased time and multiple attempts needed) Stand to Sit: Contact guard assistance;cues for hand placement Gait Distance (in feet): 2 x 20' Level of assistance: Minimal assistance Assistive Device: Other (Comment) (rollator for 1st 20 feet with LUE only, requires assist for rollator management. L LIBRARY SPECIALIST for 2nd 20 feet with improved safety) Gait Characteristics: Unsteady;No LOB;decreased anthony;L decreased step length;R decreased step length;Increased trunk flexion (L knee hyperextension that pt reports is c/w her baseline) Unable to progress further due to: fatigue, impaired balance, high fall risk Balance Sitting - Static: Supervision Sitting-Dynamic: Stand by assistance Standing-Static: Minimal Assistance Standing-Dynamic: Minimal Assistance Gait belt used: Yes Outcome Measures Position after Therapy/Safety Handoff Position after treatment and safety handoff Position after therapy session: Chair Details: RN notified;Call light/ needs within reach;visitor present;UE elevated on pillow for edemacontrol Alarms: Chair Alarms Status: Activated and Interfaced with call system Goals Collaborated with: Patient, Family Patient Stated Goal: to increase independence, to go home Goals to be met by: 07/11/25 Patient will transition from supine to sit: Independent, head of bed flat, without bedrails Patient will transition from sit to supine: Independent, head of bed flat, without bedrails Patient will transfer from sit to stand: Stand-By assistance, while maintaining weight-bearing precautions Patient will ambulate: Contact Guard assistance, with assistive device, distance (in feet) Ambulation Assistance Device: Least restrictive asistive device Distance (in feet): 50' Patient will participate in bilateral lower extremeity HEP in preperation for further functional mobility: 10 repetitions Pt Will report pain with functional mobility at: 4/10 or less Long-term goal to be met by: 07/18/25 Bread Distributor Goal : Pt will participate in stair assessment Patient/Family Education Educated patient and patient's family on the role of physical therapy, goals, plan of care, importance of increased activity, discharge recommendations, transfer training, gait training, and weight bearing precautions and fall prevention strategies, including need for supervision/ assistance with OOB activity and use of call light; patient and patient's family verbalized understanding. Handout(s)issued: none. Plan Plan Treatment/Interventions: LE strengthening/ROM, Endurance training, Patient/family training, Gait training, Equipment eval/education, Compensatory technique education, Continued evaluation, Stair Training, Therapeutic Activity, Therapeutic Exercise PT Frequency during hospitalization: minimum 3x/week The plan of care and recommendations assesses the patient's and/or caregiver's readiness, willingness, and ability to provide or support functional mobility and ADL tasks as needed upon discharge. Time Start Time: 1246 Stop Time: 1339 Time Calculation (min): 53 min Charges $PT Evaluation Mod Complex 30 Min: 1 Procedure $Therapeutic Activity: 2 units Problem List Problem List[1] Past Medical History Past Medical History: Diagnosis Date Hypercholesteremia Hypertension Past Surgical History Past Surgical History: Procedure Laterality Date BACK SURGERY [1] There is no problem list on file for this patient. * Mandeep Urban MD - 07/05/2025 6:54 AM EDT Surgery Progress Note Patient: Gladys Feliciano Admit Date: 07/03/2025 24h events No acute events overnight Continues to have bowel function Tolerating regular diet OBJECTIVE Vitals: Temp: [98.1 ??F (36.7 ??C)-98.6 ??F (37 ??C)] 98.1 ??F (36.7 ??C) Heart Rate: [77-98] 92 Resp: [13-24] 16 BP: (117-189)/(71-105) 117/73 Physical Exam: Gen: NAD, A+Ox3 CV: RRR Resp: no respiratory distress, on RA Abd: Soft, distended Ext: Warm and well perfused Labs: Recent Labs 07/03/2523407/04/25 0454 WBC 7.1 7.0 HGB 8.8* 8.3* HCT 26.6* 25.7* PLT 486* 426* Recent Labs 07/03/2523407/03/25 0710 07/03/25221707/04/25 0454 NA 131* -- 136 133 K 3.4* -- 3.7 4.5 CL 97* -- 104 104 CO2 25 -- 24 24 BUN 21 -- 14 14 CREATININE 0.88 -- 0.73 0.72 GLUCOSE 110* -- 86 119* CALCIUM 9.4 -- 9.1 9.0 MG -- 1.6 1.5 2.8* PHOS -- 3.6 2.8 3.8 No results for input(s): POCGLU , POCGMD in the last 72 hours. Invalid input(s): GLU Recent Labs 07/03/25221707/04/25453 ALBUMIN 3.6 3.5 No results for input(s): INR , PROTIME in the last 72 hours. Current Medications: Scheduled Meds: gabapentin 300 mg Oral TID heparin 5,000 Units Subcutaneous 3 times per day pantoprazole (PROTONIX) IV 40 mg Intravenous DAILY 0600 polyethylene glycol 17 g Oral BID senna-docusate 1 tablet Oral BID Continuous Infusions: PRN Meds: calcium carbonate, hydrALAZINE, methocarbamoL, ondansetron ASSESSMENT/PLAN Gladys Feliciano is a 79 y.o. 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 Mosier's Syndrome - GI following - Advance to Regular diet - Miralax/Senna BID; Suppository today - Minimize narcotic use HTN HLD - hold statin - prns for htn GERD Hiatal Hernia - IV PPI Provoked DVT (after spinal surgery) - Will discuss restarting Eliquis Chronic Pain - MMPR - minimize narcotics as able Hamza Wilmar, MD Surgery Resident 07/05/2025 Cosigned by Tan Ward MD at 07/05/2025 4:31 PM EDT Associated attestation - Tan Ward MD - 07/05/2025 4:31 PM EDT Surgery Attending This patient was seen by the [facility] and surgery team. I have personally seen and examined this patienton 07/05/2025. I have discussed the patient's management with the team and have reviewed and agree with the attached note. My independent assessment also reveals: 79 yo F presented with abdominal distention CT w concern for LBO +BMs Abd soft, NT, ND Ogilvies vs splenic flexure tapering - senna-S BID, miralax titrated to 1-2 soft BM per day - reg diet - colonoscopy as outpt if tolerating diet and having bowel function DVT - restart eliquis tomorrow Hiatal hernia - PPI, minimal symptoms, no acute intervention - recommend EGD at some point Chronic anemia - follow hgb, may need follow-up with PCP Multiple falls, fxs - minimize opioid use - PT/OT to eval for placement Follow bowel function, abdominal exam, and dispo planning No operative intervention planned Medical decision making included the following: Acute or exacerbated chronic illness that poses a threat to life or bodily function: constipation Prescription drug management: yes Parenteral controlled substances: no Drug therapy requiring intensive monitoring for toxicity: no Patient's care discussed with the following other services: GI Tan Ward MD General Surgeon Section of General Surgery [facility] * Iliana Patterson RN - 07/04/2025 9:30 AM EDT Acute Care Surgery Nurse Clinician Daily Progress Note Admission Date: 07/03/2025 : 1945 Age: 79 y.o. PCP: Placido Mercado MD PCP Confirmed: yes Phone: # [phone] Fax: # HPI: 79 y.o. female with a PMH of HTN, HLD, GERD/hiatal hernia, chronic back pain, and a provoked DVT (on eliquis) who presents with abdominal pain and distention with CT findings concerning for large bowel obstruction. Per patient, has had issues with irregular bowels and dysmotility for several years now. Regulated with miralax. In the past year has had several orthopedic injuries/interventions requiring opioid pain medication including a spinal fusion and more recently a right clavicular fracture two weeks ago.However experienced acute on chronic abdominal pain, nausea, and distention over the last 24 hours,prompting presentation to an OSH ED. ED work up including CT AP with concerns for large bowel obstruction. Has had EGD and colonscopy within the last year as part of a work up for anemia. No source of bleeding was identified, however was told that she had polyps removed and would need a repeat colonscopy in 3 years. On arrival to ED, found to be hemodynamically stable with hyponatremia (131), hypokalemia (3.4),hypochloremia (97), and anemia (8.8). No lactic acidosis. Diagnosis: Active Problems: * No active hospital problems. * Large bowel obstruction vs. Starr's Syndrome. *Transfer from OSH Procedures performed: none Wounds: none Lines/Drains/Tubes: none Nutrition/Diet: Diet/Nutrition Orders Diet NPO Okay for swabs Frequency: Effective Now Number of Occurrences: Until Specified Order Comments: Okay for swabs DVT Prophylaxis: HSQ Antibiotics: none Weight Bearing Status: full PT Recs: not ordered OT Recs: not ordered Incidental Findings: 07/02 at OSH- none identified No CTs this admission Assessment/Plan: Presents from OSH with abdominal pain and distention with CT findings concerning for large bowel obstruction. Continue conservative management, patient with increased distention today. WBC remains WNL at 7 today. GI consult. Patient with reports of + flatus and BM yesterday. Will remain NPO and monitor today, given miralax yesterday evening. Repeat KUB for re evaluation of cecal diameter today. Encourage patient to be OOB to chair and ambulating as tolerated with nursing assistance. Anticoagulation at discharge: history of provoked DVT (on eliquis) Consults and Follow up plans: GI- evaluation of possible Olgivie's Syndrome and decompression. Follow up appointments: No future appointments. ACS follow up prn May need GI follow up for colonoscopy outpatient Discharge Planning: Insurance: Insurance Information [employer] MANAGED MEDICARE/[employer] PLUS MEDICARE Phone: -- Subscriber: Gladys Feliciano Subscriber#: [id number] Group#: [id number] Precert#: -- Authorization#: [id number] Effective Date: -- Disposition: Anticipate possible discharge weekend, home with no needs. SW updated and following along. *From [facility], ~1.5 hours away note 07/03- DME use including rolling walker, rollator, and shower chair. Patient has history ofskilled nursing facility admissions and/or inpatient rehabilitation facility admissions. Went to [facility] in [place] in the past. Patient has history of home health care services. Reports she is active with [facility] for PT/OT/SN. Referrals sent to: Date: Accepted by: Date: Insurance Pre-cert needed: yes Pre-cert date started: Pre-cert date obtained: Equipment: none Barriers to discharge: Patient will need recovery including pain control on oral medications, tolerating regular diet and return of bowel function. Discussed plan of care and/or discharge plan with social work. Acute Care Surgery discharge instructions added/reviewed/updated to/in discharge navigator. * Steffanie Corcoran MD - 07/04/2025 8:53 AM EDT Surgery Progress Note Patient: Gladys Feliciano Admit Date: 07/03/2025 24h events Had bowel function overnight Continues to be distended OBJECTIVE Vitals: Temp: [98.4 ??F (36.9 ??C)] 98.4 ??F (36.9 ??C) Heart Rate: [77-98] 77 Resp: [13-25] 13 BP: (123-165)/(68-96) 165/88 Date 07/03/25 0700 - 07/04/25 0659 07/04/25 0700 - 07/05/25 0659 Shift 7415-1635 9039-0812 9093-2874 24 Hour Total 2184-6479 8202-9306 8904-9257 24 Hour Total INTAKE I.V. 491.1 491.1 Volume (mL) (sodium chloride 0.9 % IV infusion) 491.1 491.1 IV Piggyback 100 100 200 Volume (mL) (potassium chloride (KCl)/Sterile water 100 mL 10 mEq/100 mL IVPB 10 mEq) 100 100 Volume (mL) (magnesium sulfate in sterile water 100 mL IVPB 4 g) 100 100 Shift Total 591.1 100 691.1 OUTPUT Shift Total Weight (kg) Physical Exam: Gen: NAD, A+Ox3 CV: RRR Resp: no respiratory distress, on 1L NC Abd: Soft, distended Ext: Warm and well perfused Labs: Recent Labs 07/03/2523407/04/25453 WBC 7.1 7.0 HGB 8.8* 8.3* HCT 26.6* 25.7* PLT 486* 426* Recent Labs 07/03/2523407/03/2570907/03/25221707/04/25453 NA 131* -- 136 133 K 3.4* -- 3.7 4.5 CL 97* -- 104 104 CO2 25 -- 24 24 BUN 21 -- 14 14 CREATININE 0.88 -- 0.73 0.72 GLUCOSE 110* -- 86 119* CALCIUM 9.4 -- 9.1 9.0 MG -- 1.6 1.5 2.8* PHOS -- 3.6 2.8 3.8 No results for input(s): POCGLU , POCGMD in the last 72 hours. Invalid input(s): GLU Recent Labs 07/03/25221707/04/25453 ALBUMIN 3.6 3.5 No results for input(s): INR , PROTIME in the last 72 hours. Current Medications: Scheduled Meds: gabapentin 300 mg Oral TID [Held by provider] heparin 5,000 Units Subcutaneous 3 times per day pantoprazole (PROTONIX) IV 40 mg Intravenous DAILY 0600 Continuous Infusions: dextrose 5 % and 0.45 % NaCl with KCl 20 mEq 75 mL/hr (07/04/25337) PRN Meds: hydrALAZINE, HYDROmorphone OR HYDROmorphone, methocarbamoL, ondansetron ASSESSMENT/PLAN Gladys Feliciano is a 79 y.o. female with a PMHx of HTN, HLD, GERD/hiatal hernia, chronic back pain, and a provoked DVT (on eliquis) who presents with abdominal pain and distention with CT findings concerning for large bowel obstruction vs. Mosier's Syndrome. Mosier's Syndrome - GI following - Advance CLD - Miralax/Senna BID - Minimize narcotic use - KUB this morning unchanged HTN HLD - hold statin - prns for htn GERD Hiatal Hernia - IV PPI Provoked DVT (after spinal surgery) - Will discuss restarting Eliquis Chronic Pain - MMPR - minimize narcotics as able Steffanie Corcoran MD General Surgery Resident 07/04/2025 Cosigned by Tan Ward MD at 07/04/2025 12:09 PM EDT Associated attestation - Tan Ward MD - 07/04/2025 12:09 PM EDT Surgery Attending This patient was seen by the [facility] and surgery team. I have personally seen and examined this patienton 07/04/2025. I have discussed the patient's management with the team and have reviewed and agree with the attached note. My independent assessment also reveals: 79 yo F presented with abdominal distention CT w concern for LBO +BMs Abd soft, NT, ND Ogilvies vs splenic flexure tapering - senna-S BID, miralax BID titrated to 1-2 soft BM per day - clears adv as tolerated - colonoscopy as outpt if tolerating diet and having bowel function DVT - restart eliquis when on diet Hiatal hernia - PPI, minimal symptoms, no acute intervention - recommend EGD at some point Multiple falls, fxs - minimize opioid use Chronic anemia - follow hgb, may need follow-up with PCP Medical decision making included the following: Acute or exacerbated chronic illness that poses a threat to life or bodily function: constipation Prescription drug management: yes Parenteral controlled substances: no Drug therapy requiring intensive monitoring for toxicity: no Patient's care discussed with the following other services: GI Tan Ward MD General Surgeon Section of General Surgery [facility] * Maximus Figueroa MD - 07/04/2025 8:18 AM EDT GI DAILY PROGRESS NOTE 07/04/2025 8:18 AM Gladys Feliciano is a 79 y.o. female on hospital day 1. Interm Hx: Patient has two bowel movements. The second was large. Abdomen is tighter today, but less distendedper patient. Electrolytes improved. Denies CP, SOB, n/v, dysuria Past medical, family, and social histories were reviewed as previously documented. Updates were made as necessary. Meds: Scheduled Meds: gabapentin 300 mg Oral TID [Held by provider] heparin 5,000 Units Subcutaneous 3 times per day pantoprazole (PROTONIX) IV 40 mg Intravenous DAILY 0600 Continuous Infusions: dextrose 5 % and 0.45 % NaCl with KCl 20 mEq 75 mL/hr (07/04/25 0338) PRN Meds: hydrALAZINE, HYDROmorphone OR HYDROmorphone, methocarbamoL, ondansetron Allergies: Allergies[1] Vitals: Vitals: 07/04/25 0726 BP: 151/83 Pulse: 83 Resp: 17 Temp: SpO2: 100% Intake/Output Summary (Last 24 hours) at 07/04/2025 0818 Last data filed at 07/04/2025 0628 Gross per 24 hour Intake 691.08 ml Output -- Net 691.08 ml Physical Exam: Physical Exam Constitutional: General: She is not in acute distress. Appearance: Normal appearance. She is not ill-appearing. HENT: Mouth/Throat: Mouth: Mucous membranes are moist. Pharynx: Oropharynx is clear. Eyes: Extraocular Movements: Extraocular movements intact. Pupils: Pupils are equal, round, and reactive to light. Pulmonary: Effort: Pulmonary effort is normal. No respiratory distress. Breath sounds: Normal breath sounds. Abdominal: General: Abdomen is flat. There is no distension. Palpations: Abdomen is soft. Tenderness: There is no abdominal tenderness. Comments: Tense, while patient was sitting in chair Musculoskeletal: General: No swelling. Skin: General: Skin is warm and dry. Neurological: General: No focal deficit present. Mental Status: She is alert and oriented to person, place, and time. Psychiatric: Mood and Affect: Mood normal. Behavior: Behavior normal. Labs: Lab Results Component Value Date WBC 7.0 07/04/2025 HGB 8.3 (L) 07/04/2025 HCT 25.7 (L) 07/04/2025 MCV 77.7 (L) 07/04/2025 PLT 426 (H) 07/04/2025 Lab Results Component Value Date GLUCOSE 119 (H) 07/04/2025 BUN 14 07/04/2025 CO2 24 07/04/2025 CREATININE 0.72 07/04/2025 K 4.5 07/04/2025 NA 133 07/04/2025 CL 104 07/04/2025 Lab 07/04/25 0454 07/03/25 2218 07/03/25 0710 07/03/25 0235 CALCIUM 9.0 9.1 -- 9.4 MAGNESIUM 2.8* 1.5 1.6 -- PHOSPHORUS 3.8 2.8 3.6 -- No results found for: PTT , INR No results found for: URICACID No results found for: LDH Lab Results Component Value Date ALBUMIN 3.5 07/04/2025 No results found for: TSH , [id number] No results found for: IRON , TIBC , FERRITIN No results found for: CHROMGRNA , AFP , CA199 , CEA Diagnostic Studies: KUB w/ dialated loops of large and small bowel Assessment/Plan: 79 yo w/ PMH of HTN, GERD/Hiatal hernia, chronic back pain and provoked DVT (on eliquis) who presents with abdominal pain and distension with CT findings at OSH concerning for large bowel obstruction. GI was consulted for evaluation of possible Olgivie's Syndrome and decompression. #Small and Large bowel dilation KUB from this AM with small bowel dilation suggestive of ileus. - Continue conservative management - CT abdomen and pelvis today for re-evaluation of cecal diameter - Cautious use of opioid medication to balance pain and risk of slowed gut motility. - Advise patient to limit OTC loratadine Nutrition: Diet/Nutrition Orders Diet NPO Okay for swabs Frequency: Effective Now Number of Occurrences: Until Specified Order Comments: Okay for swabs Signed: Maximus Figueroa MD PGY2 Internal Medicine 07/04/2025 8:18 AM [1] No Known Drug Allergies or Adverse Reactions Cosigned by Srini Portillo MD at 07/04/2025 12:52 PM EDT Associated attestation - Srini Portillo MD - 07/04/2025 12:52 PM EDT Attending Physician's Note: I have personally seen and examined the patient, reviewed the chart, imaging and labs and have discussed the case with Dr. Figueroa, agree with his note and confirm it. Please see Dr. Figueroa's note separately for more details. 79 y.o. F w/ a PMHx of hiatal hernia, who presents with findings concerning for acute colonic pseudoobstruction vs ileus. In terms of further hx, patient seen at beside with family present. She states she has a history ofconstipation and diarrhea alternating pattern, however she has had worsening abdominal distension and nausea over the past 72 hours. She went to OSH which showed dilation of the large bowel without atransition point. Interval History: Patient now passing more flatus and had two bowel movements. XR done showing both small bowel and large bowel distension. PE Vitals: 07/04/25 0324 07/04/25 0524 07/04/25 0726 07/04/25 0845 BP: 132/76 124/72 151/83 165/88 BP Location: Right leg Patient Position: Sitting Sitting BP Cuff Size: Regular Regular Pulse: 82 81 83 77 Resp: 13 14 17 13 Temp: TempSrc: SpO2: 97% 100% 100% 100% In no apparent cardiopulmonary distress Sclera anicteric Abdomen is soft, non-tender Alert and oriented times three, no asterixis No LE edema A&P 79 y.o. year old female with complex medical issues as detailed in HPI who presents with acute colonic pseudoobstruction (Starr's) with dilation of large bowel without evidence of mechanical etiology and now XR with small bowel dilation as well. Reviewed CT from OSH with radiology, max diameter of cecum appears to be 8.8 cm and transverse colon about 8.6 cm. At this time, would recommend supportive care including IVF, repletion of electrolytes, avoiding narcotics, NPO, consideration of decompression of proximal gut with NG tube. Will need serial assessments with imaging to ensure cecal diameter does not increase to >12 cm given increased risk of perforation. If conservative measures fail after 48 hours, can trial neostigmine vs endoscopic colonic decompression. At this time, patient appears to be improving clinically with bowel function returning. Would recommend CT to ensure cecal diameter is decreasing which I would expect given improving clinical status. Srini Portillo MD Gastroenterology and Transplant Hepatology * Iliana Patterson RN - 07/03/2025 10:00 AM EDT Acute Care Surgery Nurse Clinician Daily Progress Note Admission Date: 07/03/2025 : 1945 Age: 79 y.o. PCP: No Pcp PCP Confirmed: no Phone: # Fax: # HPI: 79 y.o. female with a PMH of HTN, HLD, GERD/hiatal hernia, chronic back pain, and a provoked DVT (on eliquis) who presents with abdominal pain and distention with CT findings concerning for large bowel obstruction. Per patient, has had issues with irregular bowels and dysmotility for several years now. Regulated with miralax. In the past year has had several orthopedic injuries/interventions requiring opioid pain medication including a spinal fusion and more recently a right clavicular fracture two weeks ago.However experienced acute on chronic abdominal pain, nausea, and distention over the last 24 hours,prompting presentation to an OSH ED. ED work up including CT AP with concerns for large bowel obstruction. Has had EGD and colonscopy within the last year as part of a work up for anemia. No source of bleeding was identified, however was told that she had polyps removed and would need a repeat colonscopy in 3 years. On arrival to ED, found to be hemodynamically stable with hyponatremia (131), hypokalemia (3.4),hypochloremia (97), and anemia (8.8). No lactic acidosis. Diagnosis: Active Problems: * No active hospital problems. * Large bowel obstruction *Transfer from OSH Procedures performed: none Wounds: none Lines/Drains/Tubes: none Nutrition/Diet: Diet/Nutrition Orders Diet NPO Okay for swabs Frequency: Effective Now Number of Occurrences: Until Specified Order Comments: Okay for swabs DVT Prophylaxis: none Antibiotics: none Weight Bearing Status: full PT Recs: not ordered OT Recs: not ordered Incidental Findings: 07/02 at OSH- none identified No CTs this admission Assessment/Plan: Presents from OSH with abdominal pain and distention with CT findings concerning for large bowel obstruction. Rectal tube was in place, but removed after review of CT scan showed high obstruction without the need for decompression from below. GI consult. Patient with reports of + flatus and BM yesterday. Will remain NPO and monitor today, may add miralax tonight. Encourage patient to be OOB to chair and ambulating as tolerated with nursing assistance. Anticoagulation at discharge: history of provoked DVT (on eliquis) Consults and Follow up plans: GI- evaluation of possible Olgivie's Syndrome and decompression. Follow up appointments: No future appointments. ACS follow up prn May need GI follow up for colonoscopy outpatient Discharge Planning: Insurance: Insurance Information [employer] MANAGED MEDICARE/[employer] PLUS MEDICARE Phone: -- Subscriber: Gladys Feliciano Subscriber#: [id number] Group#: [id number] Precert#: -- Authorization#: -- Effective Date: -- Disposition: Anticipate possible discharge weekend, home with no needs. SW updated and following along. *From [facility], ~1.5 hours away Referrals sent to: Date: Accepted by: Date: Insurance Pre-cert needed: yes Pre-cert date started: Pre-cert date obtained: Equipment: none Barriers to discharge: Patient will need recovery including pain control on oral medications, tolerating regular diet and return of bowel function. Discussed plan of care and/or discharge plan with social work. Acute Care Surgery discharge instructions added/reviewed/updated to/in discharge navigator. * Lesa Joshua RRT - 07/03/2025 7:00 AM EDT Report received * Mehul Walsh MD - 07/03/2025 4:11 AM EDT ED Attending Attestation Note Date of service: 07/03/2025 This patient was seen by the resident physician. I have seen and examined the patient, agree with the workup, evaluation, management and diagnosis. The care plan has been discussed and I concur. My assessment reveals a 79 y.o. female transferred from outside facility for small bowel obstruction diagnosed on CT imaging. Renal function preserved. White blood cell count is normal. Lactate is normal. Surgery involved. No vomiting at this time. documented in this encounter H&P Notes * Juli Roth MD - 07/08/2025 4:28 PM EST [facility] PRE-SEDATION ASSESSMENT, HISTORY & PHYSICAL Date: 07/08/2025 Gladys Feliciano is a 79 y.o. year old female Pre-Procedure Diagnosis/Procedure Indication: Abnormal CT findings with concerns for colonic obstruction in the splenic flexure Planned Procedure: Flexible sigmoidoscopy NPO for solids >8 hours, NPO for liquids >8 hours Past Medical History Past Medical History: Diagnosis Date Hypercholesteremia Hypertension Difficult intubation Unanswered Problem List[1] Past Surgical History Past Surgical History: Procedure Laterality Date BACK SURGERY Medications Home Medications Medication Sig Taking? Last Dose alendronate (FOSAMAX) 70 MG tablet Take 1 tablet (70 mg total) by mouth every 7 days. Yes apixaban (ELIQUIS) 5 mg Tab Take 1 tablet (5 mg total) by mouth 2 times a day. Yes cyclobenzaprine (FLEXERIL) 5 MG tablet Take 1 tablet (5 mg total) by mouth 3 times a day as needed for Muscle spasms. Yes gabapentin (NEURONTIN) 300 MG capsule Take 1 capsule (300 mg total) by mouth 3 times a day. Yes lisinopriL-hydrochlorothiazide (PRINZIDE) 20-12.5 mg per tablet Take 1 tablet by mouth daily. Yes meloxicam (MOBIC) 15 MG tablet Take 1 tablet (15 mg total) by mouth daily. Yes omeprazole (PRILOSEC) 40 MG capsule Take 1 capsule (40 mg total) by mouth 2 times a day. Yes oxyCODONE (ROXICODONE) 5 MG immediate release tablet Take 1 tablet (5 mg total) by mouth every 6 hours as needed for Pain. Yes pravastatin (PRAVACHOL) 40 MG tablet Take 1 tablet (40 mg total) by mouth daily. Yes Allergies: No Known Allergies Abbreviated Review of Systems (ROS) Chest Pain: no Shortness of Breath/Dyspnea or Exertion: no Recent URI: no Airway, ASA Score & Sedation Specific History Concerns Mallampati: II ASA Score: III - Moderate systematic disease with functional limitations Sedation-Specific History Concerns: None This patient was re-evaluated immediately prior to sedation administration. Focused Physical Exam: Height ; Weight ; BMI Body mass index is 30.11 kg/m??. Vitals: 07/08/25 1618 BP: 139/88 Pulse: 76 Resp: 18 Temp: 98.3 ??F (36.8 ??C) SpO2: 99% Neuro: AOX4 Cardiovascular: RRR Respiratory: On room air, no increased work of breathing Sedation Plan: MAC Antibiotic prophylaxis is not indicated. [1] There is no problem list on file for this patient. Cosigned by Vik Le MD at 07/08/2025 4:52 PM EST Associated attestation - Vik Le MD - 07/08/2025 4:52 PM EST I saw and evaluated the patient, and discussed with the fellow. I agree with the fellow???s findings and plan as documented in the fellow???s note, with the follow exceptions or additions. Flexible sigmoidoscopy for colonic pseudo-obstruction, but CT imaging of possible transition point at the splenic flexure of the colon. The patient denies nausea, vomiting, abdominal pain, and she is passing flatus and stool. She has not been eating much. She is on apixaban. She had a flexible sigmoidoscopy 10/2023 with sigmoid colon ulcer, but did not advance to splenic flexure. Vik Le MD PhD General Gastroenterology Attending [facility] * Veronika Mercado MD - 07/03/2025 4:00 AM EDT [facility] ED Note Date of Service: 07/03/2025 Reason for Visit: Abdominal Pain Patient History HPI Gladys Feliciano is a 79 y.o. female with a history of hypertension, recent right shoulder fracture who presents to the ED as a transfer from [facility] for bowel obstruction, accepted by [facility].She reports that she initially presented there with about a week of worsening abdominal discomfort,nausea, and vomiting. She is continue to have bowel movements, reports that she had 4 soft bowel mov ements today. Denies any fevers, chest pain, shortness of breath, history of abdominal surgeries, urinary changes. She reports that she has been taking opioids with her recent right shoulder injury. Rates her abdominal pain as a 3/10 currently and states it is diffuse. Past Medical History: Diagnosis Date Hypercholesteremia Hypertension Past Surgical History: Procedure Laterality Date BACK SURGERY Physical Exam Vitals: 07/03/25 0234 07/03/25 0319 07/03/25 0344 07/03/25 0454 BP: 146/78 146/78 134/86 133/86 BP Location: Right upper arm Right upper arm Patient Position: Sitting Lying BP Cuff Size: Regular Regular Pulse: 93 90 92 89 Resp: 16 20 15 12 Temp: 98.6 ??F (37 ??C) TempSrc: Oral SpO2: 98% 97% 96% 93% General: Well appearing. No acute distress, resting comfortably. Eyes: Pupils reactive. EOMI. HENT: NCAT. Tolerating oral secretions Pulmonary: Non-labored breathing. Breath sounds clear bilaterally. Cardiac: Regular rate and rhythm. Abdomen: Slightly firm, distended, no focal tenderness though patient does appear uncomfortable with palpation, no rebound or guarding. Musculoskeletal: No long bone deformity. No peripheral edema. Skin: Dry, no rashes Neuro: Alert and oriented x4. CN II-XII intact. Moves all four extremities to command. Diagnostic Studies Labs: Please see EMR for labs obtained during this patient encounter Radiology: Please see EMR for images obtained during this patient encounter ED Course and MDM Gladys Feliciano is a 79 y.o. female with a history and presentation as described above in HPI. The patient was evaluated by myself and the ED Attending Physician, Mehul Walsh MD . All management and disposition plans were discussed and agreed upon. On arrival vital signs are stable, patient is nontoxic-appearing. [facility] was paged for recommendationsregarding her bowel obstruction and the VB NET DEVELOPER is working getting her CT imaging pushed over. She doesnot appear peritonitic currently. Will obtain lactate and repeat CBC and BMP here to evaluate for any leukocytosis, anemia, or electrolyte derangements given her ongoing vomiting. Workup thus far notable for CBC without leukocytosis. Patient does have anemia with a hemoglobin 8.8, does not appear significantly different from most recent hemoglobin in Care Everywhere of 9.7. BMP shows mild hyponatremia, hypokalemia, normal glucose, normal creatinine. Lactate is normal. [facility] would like to have the patient admitted to their service for further management of her SBO. Patient will be admitted at this time. Medications received during this ED visit: Medications ondansetron (ZOFRAN) injection 4 mg (4 mg Intravenous Given 07/03/25431) HYDROmorphone (DILAUDID) injection 0.5 mg (0.5 mg Intravenous Given 07/03/25431) Medical Decision Making Problems Addressed: SBO (small bowel obstruction) (CMS-HCC): complicated acute illness or injury Amount and/or Complexity of Data Reviewed Labs: ordered. Risk Prescription drug management. Decision regarding hospitalization. Impression 1. SBO (small bowel obstruction) (CMS-HCC) Plan Admit: At this time the patient has been admitted to [facility] for further evaluation and management of SBO. Thepatient will continue to be monitored here in the emergency department until which time she is moved to her new treatment location. Discussed patient's case with admitting physicians. VERONIKA MERCADO MD Emergency Medicine, PGY-3 Veronika Mercado MD Resident 07/03/25 0541 Cosigned by Mehul Walsh MD at 07/03/2025 6:47 AM EDT documented in this encounter Procedure Notes * Juli Roth MD - 07/08/2025 4:53 PM EST SIGMOID FLEXIBLE Brief Op Note Gladys Feliciano 07/08/2025 Pre-op Diagnosis: SBO (small bowel obstruction) (CMS-HCC) [K56.609] Post-op Diagnosis: Rectal ulcers, sigmoid colon polyp, no evidence of a mass Procedure(s): SIGMOID FLEXIBLE Surgeon(s): Vik Le MD Anesthesia: MAC (Monitor Anesthesia Care) Staff: Fellow: Juli Roth MD [facility] Endo Nurse: Erica Hopper RN Endoscopy Nurse: Marlen Garcia RN Estimated Blood Loss: None Specimens: Drains: There were no complications unless listed below. JULI ROTH MD Date: 07/08/2025 Time: 5:12 PM Cosigned by Vik Le MD at 07/08/2025 6:11 PM EST Associated attestation - Vik Le MD - 07/08/2025 6:11 PM EST I saw and evaluated the patient, and discussed with the fellow. I agree with the fellow???s findings and plan as documented in the fellow???s note, with the follow exceptions or additions. Two shallow rectal ulcers, much improved from prior flexible sigmoidoscopy. No masses through proximal transverse colon. One small sigmoid polyp. Recommend discussion with PCP about whether to do elective colonoscopy for polyp based on risk-benefit in future (>3 months). Discussed with patient and her son. Vik Le MD PhD General Gastroenterology Attending [facility] [facility] * Vik Le MD - 07/08/2025 4:42 PM EST [id number] Procedure Date: 07/08/2025 4:42 PM Patient Name: Gladys Feliciano Date of : 1945 Admit Type: Inpatient Age: 79 Gender: Female Note Status: Finalized Attending MD: Vik Le , , [id number] Procedure: Flexible Sigmoidoscopy Indications: Abnormal CT of the GI tract Patient Profile: 79 y.o. F w/ a PMHx of hiatal hernia, who presents with findings concerning for acute colonic pseudoobstruction. CT abdomen and pelvis with concerns for obstruction at the splenic flexure Providers: Juli Spivey MD (Fellow) Referring MD: Attending Provider Unknown Medicines: Monitored Anesthesia Care Complications: No immediate complications. Procedure: Pre-Anesthesia Assessment: - Prior to the procedure, a History and Physical was performed, and patient medications and allergies were reviewed. The patient is competent. The risks and benefits of the procedure and the sedation options and risks were discussed with the patient. All questions were answered and informed consent was obtained. Patient identification and proposed procedure were verified by the physician, the nurse, the anesthesiologist, the corporate safety manager and the chief technician x ray in the pre-procedure area in the procedure room. Mental Status Examination: alert and oriented. Airway Examination: normal oropharyngeal airway and neck mobility. Respiratory Examination: clear to auscultation. CV Examination: normal. Prophylactic Antibiotics: The patient does not require prophylactic antibiotics. Prior Anticoagulants: The patient has taken no anticoagulant or antiplatelet agents. ASA Grade Assessment: III - A patient with severe systemic disease. After reviewing the risks and benefits, the patient was deemed in satisfactory condition to undergo the procedure. The anesthesia plan was to use monitored anesthesia care (MAC). Immediately prior to administration of medications, the patient was re-assessed for adequacy to receive sedatives. The heart rate, respiratory rate, oxygen saturations, blood pressure, adequacy of pulmonary ventilation, and response to care were monitored throughout the procedure. The physical status of the patient was re-assessed after the procedure. After obtaining informed consent, the endoscope was passed under direct vision. Throughout the procedure, the patient's blood pressure, pulse, and oxygen saturations were monitored continuously. The Colonoscope was introduced through the anus and advanced to the left transverse colon. The flexible sigmoidoscopy was accomplished without difficulty. The patient tolerated the procedure well. The quality of the bowel preparation was adequate. Findings: The perianal and digital rectal examinations were normal. The colonoscope was advanced to the transverse colon A 5 mm polyp was found in the sigmoid colon. Polypectomy was not attempted due to the patient taking anticoagulation medication. 2 nonbleeding ulcerated mucosa with no stigmata of recent bleeding were present in the rectum. A moderate amount of stool was found in the rectum, in the descending colon and in the transverse colon, making visualization difficult. Lavage of the area was performed using copious amounts, resulting in clearance with fair visualization. No evidence of mass or inflammation in the examined portion of the colon up to the transverse colon. Estimated Blood Loss: Estimated blood loss: none. Impression: - One 5 mm polyp in the sigmoid colon. Resection not attempted. - 2 mucosal ulceration in the rectum. - Stool in the rectum, in the descending colon and in the transverse colon. - No specimens collected. Recommendation: - [facility] to [facility] for [facility] care. - Resume previous diet. - Resume previous medicatios - Outpatient follow up to discuss repeat colonoscopy for polypectomy with PCP based on risk-benefit Procedure Code(s): --- Professional --- 21596, GC, Sigmoidoscopy, flexible; diagnostic, including collection of specimen(s) by brushing or washing, when performed (separate procedure) Diagnosis Code(s): --- Professional --- D12.5, Benign neoplasm of sigmoid colon R93.3, Abnormal findings on diagnostic imaging of other parts of digestive tract CPT copyright 2022 [employer]. All rights reserved. The codes documented in this report are preliminary and upon livestock farmers review may be revised to meet current compliance requirements. Attending Participation: I was present and participated during the entire procedure, including non-grajeda portions. Vik Le MD Vik Le, 07/08/2025 6:23:54 PM This report has been signed electronically.Vik Lloyd MD Juli Roth MD 07/08/2025 6:22:34 PM Total Procedure Duration Time 0 hours 9 minutes 36 seconds Scope In: 4:55:27 PM Scope Out: 5:05:[address] [place] [address], [facility] documented in this encounter Consult Notes * Gunjan Nuno RN - 07/07/2025 4:52 PM ESTAssociated Order(s): IP CONSULT TO UGPIV New LFA UGPIV 22g 1.75 Diffusics placed * Valery Reich RN - 07/03/2025 5:30 PM EDT HEALTH Care Management/Social Work Assessment Patient Information Patient Name: Gladys Feliciano Hospital Day: 0 Inpatient/Observation: Inpatient Admit Date: 07/03/2025 Admission Diagnosis: HIGH GRADE BOWEL OBSTRUCTION Attending provider: Shannon Campa MD PCP: Placido Mercado MD Home Pharmacy: [id number] - [place], [place] - [address] [facility] & [address] [place] [address] Issues related to obtaining medications: none Payor Information Medical Insurance Coverage: Payor: [employer] MANAGED MEDICARE / Plan: [employer] PLUS MEDICARE / Product Type: Medicare Mngd Care / Secondary Payor: n/a Functional Assessment Functional Assessment Assessment Information Obtained From:: Patient May We Obtain Collateral Information From Family, Friends and Neighbors?: Yes Current Mental Status: Awake, Oriented to Person, Oriented to Place, Oriented to Time, Oriented to Situation Mental Status Prior to Admission: Unable to Assess Mental Health History: No Suicide Attempts: No Activities of Daily Living: Partial Assistance Needed Work History: Retired Marital Status: Number of children and their names: Larry Louie Relative Search Completed: No Demographics Correct:: Yes Current Living Arrangements Current Living Arrangements Current Living Arrangements: Home Type of Housing: House Who do you live with?: With Family What family member?: son One Story or Two (check all that apply): One Story Enter the number of steps and rails to enter the residence: ramp Enter the number of steps and rails inside the residence: none History of Falls?: Yes Frequency of Falls: sometimes Community Services Community Services Community Services at Home: DME DME Current: Rolling walker, Cane, Shower Chair Was any abuse reported by patient?: No [place] Status & Connection to VA Services Status & Connection to VA Services Are you a ?: No Support Systems Emergency contact: Extended Emergency Contact Information Primary Emergency Contact: alexa feliciano Mobile Relation: Daughter Secondary Emergency Contact: larry young Mobile Relation: Daughter Support Systems Legal Status: N/A Primary Caregiver: Self Times of available support: Limited 24/7 hands on (add comment) Marital Status: Number of children and their names: Larry Louie Relative Search Completed: No Demographics Correct:: Yes Expected Discharge Disposition: Home with Home Care Next of Kin: Alexa Feliciano Next of Kin Relationship: Son Next of Kin Assessment Information Obtained From:: Patient Other Pertinent Information office analyst met with patient at bedside to complete psychosocial assessment, introduce self androle of care management/discharge planning in the hospital, and to verify demographic information. Patient is living with son in a(n) house. Patient reports having four children. Patient does not report any concerns for safety or abuse at residence. Patient reports they are partially independent with ADL's. Her son helps with cleaning, cooking, and feeding. Patient has a citizenship teacher who comes tocleans once a week. Patient reports she does have a HCPOA, however no paperwork on file. Patient is aware legal next of kin is four adult children. Patient denies mental health concerns and/or diagnoses. Patient denies alcohol misuse, tobacco use, and or illicit substance use. Patient denies home oxygen and dialysis. DME use including rolling walker, rollator, and shower chair. Patient has history of assisted facility admissions and/or inpatient rehabilitation facility admissions. Went to [facility] in [place] in the past. Patient has history of home health care s ervices. Reports she is active with [facility] for PT/OT/SN. Patient confirms their PCP is Thad Mercado. Patient advised that they will not need assistance with transportation upon discharge. Son can transport home. The patient is not medically ready for discharge at this time and is admitted. Inpatient case management will follow. Update: ANN SHEPHERD called [facility] ([phone]) for resumption of care. ANN SHEPHERD received call back from Birgit at [facility] at [place]. Birgit was unable to see if patient is active for [facility]. Birgit recommends calling back during normal business hours. Discharge Plan Met with patient to initiate discussion regarding discharge planning. Introduced self and role of case management/social work and provided contact information. Anticipated Discharge Plan: home with [facility] Anticipated Discharge Date: 07/05 Anticipated Transportation: son Patient/Family aware and taking part in the discharge plan. Patient/family educated that once post-acute care needs have been identified, a provider list applicable to the identified post-acute care needs as well as the insurance provider will be provided, and patient/family have the freedom to choose their provider(s); financial interest(s) are disclosed as appropriate. Valery Reich RN * Maximus Figueroa MD - 07/03/2025 7:12 AM EDTAssociated Order(s): IP CONSULT TO GASTROENTEROLOGY GI INITIAL CONSULT NOTE REASON FOR CONSULT: HPI: Gladys Feliciano is a 79 yo w/ PMH of HTN, GERD/Hiatal hernia, chronic back pain and provoked DVT (on eliquis) who presents with abdominal pain and distension with CT findings at OSH concerning for large bowel obstruction. GI was consulted for evaluation of possible Olgivie's Syndrome and decompression. Patient reports 3-4 days of abdominal distension and nausea which prompted her to present to OSH atwhich time CT scan of abdomen demonstrated dilation of the large bowel. The patient was then transferred to [facility] for further management. Over the last several weeks the patient has had multiple episodes of bloating and nausea improved with miralax. At baseline the patient had no nausea and passes bowel movements. Reports some chronic shortness of breath, but has no fevers, chills, or abdominal pain. In February the patient underwent spinal fusion. The patient reports urinary hesitance with starting and stopping which has been present since that spinal fusion. Additionally the patient take oxycodone 5 mg QID for pain associated to spinal fusion and more recent shoulder fracture. The patient takes no other psychotropic medications. Take OTC Co-enzyme 10, tumeric, and loratadine for allergy relief.Does not use illicit drugs, alcohol or tobacco. On presentation labs were notable for potassium of 3.4 and sodium of 131. Hgb was 8.8. CT abdomen and pelvis was pushed to PACs. Maximum diameter of colon was 8 cm. REVIEW OF SYSTEMS: Review of Systems Constitutional: Negative for chills and fever. Respiratory: Negative for shortness of breath. Cardiovascular: Negative for chest pain. Gastrointestinal: Positive for nausea. Negative for abdominal pain, diarrhea and vomiting. Neurological: Negative for headaches. PAST MEDICAL HISTORY: Past Medical History: Diagnosis Date Hypercholesteremia Hypertension PAST SURGICAL HISTORY: Past Surgical History: Procedure Laterality Date BACK SURGERY CURRENT MEDICATIONS: Scheduled Meds: gabapentin 300 mg Oral TID [Held by provider] heparin 5,000 Units Subcutaneous 3 times per day pantoprazole (PROTONIX) IV 40 mg Intravenous DAILY 0600 potassium chloride (KCl) 10 mEq Intravenous Q1HRS Continuous Infusions: sodium chloride 0.9 % 100 mL/hr (07/03/25 0701) PRN Meds:.hydrALAZINE, HYDROmorphone OR HYDROmorphone, methocarbamoL, ondansetron HOME MEDICATIONS: Home Medications Not on File ALLERGIES: Allergies[1] SOCIAL HISTORY: Social History Substance and Sexual Activity Alcohol Use Not Currently Social History Substance and Sexual Activity Drug Use Never Tobacco Use History[2] FAMILY HISTORY: No family history on file. VITALS: Vitals: 07/03/25 0547 BP: 127/74 Pulse: 90 Resp: 16 Temp: SpO2: 93% PHYSICAL EXAM: Physical Exam Constitutional: General: She is not in acute distress. Appearance: Normal appearance. She is not ill-appearing. HENT: Mouth/Throat: Mouth: Mucous membranes are moist. Pharynx: Oropharynx is clear. Eyes: Extraocular Movements: Extraocular movements intact. Pupils: Pupils are equal, round, and reactive to light. Cardiovascular: Rate and Rhythm: Normal rate and regular rhythm. Pulses: Normal pulses. Heart sounds: Normal heart sounds. No murmur heard. Pulmonary: Effort: Pulmonary effort is normal. No respiratory distress. Breath sounds: Normal breath sounds. Abdominal: General: Abdomen is flat. There is distension. Palpations: Abdomen is soft. Tenderness: There is no abdominal tenderness. Musculoskeletal: General: No swelling. Skin: General: Skin is warm and dry. Neurological: General: No focal deficit present. Mental Status: She is alert and oriented to person, place, and time. Psychiatric: Mood and Affect: Mood normal. Behavior: Behavior normal. LABS: Lab Results Component Value Date WBC 7.1 07/03/2025 RBC 3.47 (L) 07/03/2025 HGB 8.8 (L) 07/03/2025 HCT 26.6 (L) 07/03/2025 MCV 76.6 (L) 07/03/2025 MCH 25.4 (L) 07/03/2025 MCHC 33.2 07/03/2025 RDW 18.3 (H) 07/03/2025 PLT 486 (H) 07/03/2025 Lab Results Component Value Date GLUCOSE 110 (H) 07/03/2025 BUN 21 07/03/2025 CO2 25 07/03/2025 CREATININE 0.88 07/03/2025 K 3.4 (L) 07/03/2025 NA 131 (L) 07/03/2025 CL 97 (L) 07/03/2025 CALCIUM 9.4 07/03/2025 No results found for: MG No results found for: PHOS No results found for: INR , PROTIME No results found for: ALT , AST , ALKPHOS , BILITOT , BILIDIRECT Lab Results Component Value Date HGB 8.8 (L) 07/03/2025 IMAGING: CT Abdomen and Pelvis 07/02/2025 (Uploaded to PACs) - Dilated large bowel measure 80 mm in diameters at the cecum - Air-fluid level PROCEDURES: Flexible Sigmoidoscopy 10/18/2023 Abnormal mucosa in the sigmoid colon. A [...] were obtained with cold forceps for histology. ASSESSMENT AND PLAN: 79 yo w/ PMH of HTN, GERD/Hiatal hernia, chronic back pain and provoked DVT (on eliquis) who presents with abdominal pain and distension with CT findings at OSH concerning for large bowel obstruction. GI was consulted for evaluation of possible Olgivie's Syndrome and decompression. Given patient presentation < 48 hours interventions should focus on supportive care including hold potentially causative medications, correcting electrolyte derangements and bowel decompression. If after 48 - 72 hours post presentation the patient's distension is not improved would favor initiation of neostigmine prior to consideration of endoscopic decompression. - Cautious use of opioid medication to balance pain and risk of slowed gut motility. - Advise patient to limit OTC loratadine - KUB now to assess distension - Correct electrolytes - Decompression w/ rectal tube - Monitor for improvement w/ conservative measures prior neostigmine initiation versus endoscopic decompression. Patient seen and discussed with attending physician, Dr. Portillo. Maximus Figueroa MD PGY2 Internal Medicine 07/03/2025 7:12 AM [1] No Known Drug Allergies or Adverse Reactions [2] Social History Tobacco Use Smoking Status Never Smokeless Tobacco Never Cosigned by Srini Portillo MD at 07/03/2025 1:04 PM EDT Associated attestation - Srini Portillo MD - 07/03/2025 1:04 PM EDT Attending Physician's Note: I have personally seen and examined the patient, reviewed the chart, imaging and labs and have discussed the case with Dr. Figueroa, agree with his note and confirm it. Please see Dr. Figueroa's note separately for more details. 79 y.o. F w/ a PMHx of hiatal hernia, who presents with findings concerning for acute colonic pseudoobstruction. In terms of further hx, patient seen at beside with family present. She states she has a history ofconstipation and diarrhea alternating pattern, however she has had worsening abdominal distension and nausea over the past 72 hours. She went to OSH which showed dilation of the large bowel without atransition point. She stats her last BM was yesterday and is passing gas at this time. No hematemesis or hematochezia. PE Vitals: 07/03/25 0928 07/03/25 1029 07/03/25 1148 07/03/25 1245 BP: (!) 153/96 134/78 150/79 133/79 BP Location: Left upper arm Left upper arm Patient Position: Lying Lying BP Cuff Size: Regular Regular Pulse: 94 87 91 85 Resp: 23 18 19 14 Temp: 98.4 ??F (36.9 ??C) TempSrc: Oral SpO2: 99% (!) 69% 98% 98% In no apparent cardiopulmonary distress Nontoxic appearing Sclera anicteric Abdomen is soft, distension present +tympany Alert and oriented times three, no asterixis No LE edema A&P 79 y.o. year old female with complex medical issues as detailed in HPI who presents with acute colonic pseudoobstruction (Starr's) with dilation of large bowel without evidence of mechanical etiology. Reviewed CT with radiology, max diameter of cecum appears to be 8.8 cm and transverse colon about 8.6 cm. At this time, would recommend supportive care including IVF, repletion of electrolytes, avoiding narcotics, NPO, consideration of decompression of proximal gut with NG tube. Will need serialassessments with imaging to ensure cecal diameter does not increase to >12 cm given increased risk of perforation. If conservative measures fail after 48 hours, can trial neostigmine vs endoscopiccolonic decompression. Will follow closely Srini Portillo MD Gastroenterology and Transplant Hepatology * Brooklyn Guadalupe MD - 07/03/2025 4:01 AM EDTAssociated Order(s): ED CONTACT PROVIDER [facility] General Surgery History and Physical/Consultation Note Patient: Gladys Feliciano CSN: [id number] Requesting Physician: Mehul Walsh MD History CC: <principal problem not specified> HPI: Gladys Feliciano is a 79 y.o. female with a PMH of HTN, HLD, GERD/hiatal hernia, chronic back pain, and a provoked DVT (on eliquis) who presents with abdominal pain and distention with CT findings concerning for large bowel obstruction. Per patient, has had issues with irregular bowels and dysmotility for several years now. Regulated with miralax. In the past year has had several orthopedic injuries/interventions requiring opioid pain medication including a spinal fusion and more recently a right clavicular fracture two weeks ago.However experienced acute on chronic abdominal pain, nausea, and distention over the last 24 hours,prompting presentation to an OSH ED. ED work up including CT AP with concerns for large bowel obstruction. Has had EGD and colonscopy within the last year as part of a work up for anemia. No source of bleeding was identified, however was told that she had polyps removed and would need a repeat colonscopy in 3 years. On arrival to ED, found to be hemodynamically stable with hyponatremia (131), hypokalemia (3.4),hypochloremia (97), and anemia (8.8). No lactic acidosis. PMH: Past Medical History: Diagnosis Date Hypercholesteremia Hypertension PSH: Past Surgical History: Procedure Laterality Date BACK SURGERY Medications: Home Medications Not on File Allergies: Patient has no known drug allergies or adverse reactions. SH: Social History Socioeconomic History Marital status: Spouse name: Not on file Number of children: Not on file Years of education: Not on file Highest education level: Not on file Occupational History Not on file Tobacco Use Smoking status: Never Smokeless tobacco: Never Substance and Sexual Activity Alcohol use: Not Currently Drug use: Never Sexual activity: Not on file Other Topics Concern Not on file Social History Narrative Not on file Social Drivers of Health Financial Resource Strain: Not on file Food Insecurity: Not on file Transportation Needs: Not on file Physical Activity: Not on file Stress: Not on file Social Connections: Not on file Intimate Partner Violence: Not on file Housing Stability: Not on file FH: No family history on file. ROS: Review of Systems Constitutional: Negative for chills and fever. HENT: Negative for congestion and rhinorrhea. Respiratory: Negative for cough and shortness of breath. Cardiovascular: Negative for chest pain and palpitations. Gastrointestinal: Positive for abdominal distention, abdominal pain, constipation and nausea. Negative for blood in stool, diarrhea and vomiting. Genitourinary: Negative for difficulty urinating and dysuria. Musculoskeletal: Negative for arthralgias and myalgias. Skin: Negative for rash and wound. Neurological: Negative for dizziness and headaches. Psychiatric/Behavioral: Negative for agitation and confusion. Vital Signs Temp: [98.6 ??F (37 ??C)] 98.6 ??F (37 ??C) Heart Rate: [90-93] 92 Resp: [15-20] 15 BP: (134-146)/(78-86) 134/86 Vitals: 07/03/25 0344 BP: 134/86 Pulse: 92 Resp: 15 Temp: SpO2: 96% Physical Exam Physical Exam Constitutional: General: She is not in acute distress. Appearance: Normal appearance. She is not toxic-appearing. HENT: Head: Normocephalic and atraumatic. Nose: Nose normal. Mouth/Throat: Mouth: Mucous membranes are moist. Eyes: Extraocular Movements: Extraocular movements intact. Pupils: Pupils are equal, round, and reactive to light. Cardiovascular: Rate and Rhythm: Normal rate and regular rhythm. Pulses: Normal pulses. Pulmonary: Effort: Pulmonary effort is normal. No respiratory distress. Abdominal: General: There is distension. Palpations: Abdomen is soft. Tenderness: There is no abdominal tenderness. There is no guarding or rebound. Musculoskeletal: General: Normal range of motion. Cervical back: Normal range of motion. Skin: General: Skin is warm. Neurological: General: No focal deficit present. Mental Status: She is alert and oriented to person, place, and time. Psychiatric: Mood and Affect: Mood normal. Behavior: Behavior normal. Laboratory Data Invalid input(s): CO2ART , HBO2PE Lab 07/03/25234 WBC 7.1 HEMOGLOBIN 8.8* HEMATOCRIT 26.6* MEAN CORPUSCULAR VOLUME 76.6* PLATELETS 486* Lab 07/03/25234 SODIUM 131* POTASSIUM 3.4* CHLORIDE 97* CO2 25 BUN 21 CREATININE 0.88 GLUCOSE 110* CALCIUM 9.4 Invalid input(s): PROTEIN Invalid input(s): KEYTONESU Other labs: Recent Labs 07/03/25234 LACTATE 0.9 Imaging Studies No results found. CT AP from OSH transferred to PACS and reviewed. LBO w/caliber transition at splenic flexure/descending colon, gas present in descending/sigmoid/rectum. Measuring at 8cm maximum diameter. Small bowel dilation throughout. Hiatal hernia. Assessment and Plan Gladys Feliciano is a 79 y.o. female with a PMH of HTN, HLD, GERD/hiatal hernia, chronic back pain, and a provoked DVT (on eliquis) who presents with abdominal pain and distention with CT findings concerning for large bowel obstruction. Large Bowel Obstruction vs Starr's Syndrome - admit to ACS, floor status - NPO/IVF - rectal tube placed for decompression - GI consult, appreciate assistance - correct electrolytes - minimal narcotics HTN HLD - hold statin - prns for htn GERD Hiatal Hernia - IV PPI Provoked DVT (after spinal surgery) - hold eliquis - check antiXa Chronic Pain - MMPR - minimize narcotics as able PPX: hold SQH, check antiXa Dispo: Floor BROOKLYN GUADALUPE MD [facility] General Surgery Cosigned by Shannon Campa MD at 07/03/2025 6:55 AM EDT Associated attestation - Shannon Campa MD - 07/03/2025 6:55 AM EDT ACS ATTENDING - Addendum This patient was seen by the SR. MANAGER/resident ACS team. I have personally seen this patient on 07/03/2025, examined this patient, and my assessment reveals: 79yo female with a PMH of HTN, HLD, GERD/hiatal hernia, chronic back pain, and a provoked DVT (on eliquis) who presents with abdominal pain and distention with CT findings concerning for large bowel obstruction. Alert, NAD Abd soft, moderately distended Non tender, +flatus, BM last PM LBO GERD Large hiatal hernia - NPO, IVF - rectal tube decompression - PPI, PRN anti emetics - GI consult DVT (after spine surgery) - hold eliquis - antiXa pending Chonic pain - MMPC, minimize narcotics Medical decision making included the following: Acute or chronic illness or injury that poses a threat to life or bodily function: LBO Prescription drug management: yes Parenteral controlled substances: dilaudid Drug therapy requiring intensive monitoring for toxicity: no I saw and examined the patient and discussed the case with the resident and agree with the findingsand plan as documented in the resident's note. SHANNON CAMPA MD Attending Surgeon Division of Trauma, Surgical Critical Care, and Acute Care Surgery documented in this encounter Nursing Notes * Sridevi Fuchs RN - 07/10/2025 3:59 PM EST Report called to facility. Pt belongings sent with family. No questions at this time * Thuy Byers RN - 07/08/2025 9:47 AM EST Tap water enema (500ml) completed X2. Pt tolerated well. * Debbie Frey RN - 07/05/2025 5:21 AM EDT Patient brought up to the unit from ED. Alert + oriented x4. RA. 04/13 pain. Patient Right arm is barbara sling due to previous admission on 06/16/2025. Vitals signs are within normal limits. Patient states she has trouble hearing, wears glasses. * Fuentes Soriano RN - 07/02/2025 11:08 PM EDT Abd pain and weakness for 1 week Denies NVD. + abd distension Per CT SBO Pt aaox4, VSS Recent clavicle fx, unrelated 4 zofran, 1 lNS, 2 MS, 1/2 versed documented in this encounter ED Notes * Pedro Calderón RN - 07/05/2025 3:44 AM EDT Ready and clean bed assigned to [id number]. Pt updated on plan of care including transfer and is agreeable. Receiving RN may call [phone] to consult ED RN with questions regarding patients care. Pt is leaving the department in stable condition with all personal items in possession. Ordered medications that have been received from Pharmacy will be tubed. The patient does not have a patient monitor at bedside in the ED. Most recent vitals: BP 173/71 Pulse 83 Temp 98.6 ??F (37 ??C) Resp 19 SpO2 96% PEDRO CALDERÓN RN * Nick Dominguez RN - 07/05/2025 3:44 AM EDT Ready and clean bed assigned to [id number]. Pt updated on plan of care including transfer and is agreeable. Receiving RN may call [phone] to consult ED RN with questions regarding patients care. Pt is leaving the department in stable condition with all personal items in possession. Ordered medications that have been received from Pharmacy will be tubed to receiving unit. The patient does not have a patient monitor at bedside in the ED. Most recent vitals: BP 173/71 Pulse 83 Temp 98.6 ??F (37 ??C) Resp 19 SpO2 96% NICK DOMINGUEZ RN ,RN * Kimmie Hwang RN - 07/04/2025 6:33 PM EDT Pt to CT scan with transport at this time * Angleita Ellison RN - 07/04/2025 2:43 PM EDT Pt is sitting in bed A&Ox4. Pt is breathing easy, even, and unlabored. * Rhianna Portillo RN - 07/04/2025 2:00 PM EDT Pt c/o increased abd pain since she has eaten the clear liquid diet food, + abd cramping, and more gas than before, pt feels hot, no dizziness or n/v/d, no vision problems, no LUNDBERG, pts b/p is alittle higher than normal per the family, pt c/o I just feel bad skin warm and dry, HR -81, no cardiac arrhthymias, resp reg easy even unlabored, pt able to speak in complete sentences clearly without difficulty, pt calm, pt sitting on the edge of the bed c/o she needs to move her bowels, and feels like that feeling has gone away now, pt sts I will try again later , abd pain has been coming on for awhile, and is now gone, pt sitting back in the bed, cool wash clothes applied to the pts back of her neck and forehead, pt sts I feel better now, the feelings came and went just that pt encouraged to call again if she feels worse or like this again, pt sts I'm fine now , * Angelita Ellison RN - 07/04/2025 1:44 PM EDT Iv cathter fell out of pt arm. * Rhianna Portillo RN - 07/04/2025 12:50 PM EDT Pt eating lunch tray, no c/o at present, family at bedside, * Angelita Ellison RN - 07/04/2025 10:52 AM EDT Pt had sips of water and tolerated well. Meal tray ordered * Rhianna Portillo RN - 07/04/2025 10:07 AM EDT MD at bedside.- surgery team, * Rhianna Portillo RN - 07/04/2025 9:21 AM EDT MD at bedside. - admit team, * Angelita Ellison RN - 07/04/2025 8:41 AM EDT Pt up to bathroom in a wheelchair with daughter assist. Pt reports bowel movement was a mix of formed and soft and it was yellow/brownish. Iv dressing changed * Angelita Ellison RN - 07/04/2025 8:04 AM EDT MD at bedside * Rhianna Portillo RN - 07/04/2025 7:28 AM EDT MD at bedside. - admit residents x 2, pt calm, requesting something to wet her lips with, pt given toothette sponge for comfort, pt aware of NPO status, * Angelita Ellison RN - 07/04/2025 7:23 AM EDT Report received from nightshift RN. Pt sitting upright in bed with daughter at bedside. Pt is breathing easy, even, and unlabored. Pt can speak full clear sentences. Pt is A&Ox4. Pt is in NSR permontior * Rhianna Portillo RN - 07/04/2025 7:20 AM EDT Report recd from retail shift leader rn, * Xenia Frost RN - 07/04/2025 6:50 AM EDT Pt to bathroom with daughter, reports 2 small formed stools. * Leena Garcia RN - 07/04/2025 3:19 AM EDT Patient to RR with daughter. Patient had large BM partially solid per patient and daughter. * Leena Garcia RN - 07/03/2025 11:31 PM EDT Patient to RR in wheelchair with Daughter. Patient placed in hospital bed for comfort, daughter given recliner for comfort. * Mariana Cervantes RN - 07/03/2025 7:25 PM EDT [facility] Expected date: 07/03/25 Expected time: 7:17 PM Means of arrival: Comments: A12 * Polly Valenzuela RN - 07/03/2025 6:38 PM EDT Pt ambulated to bathroom with walker and assistance from this RN * Jevon Abraham RN - 07/03/2025 3:21 PM EDT Report received from ANN Will. No further questions/concerns at this time. Patient resting comfortably in bed, attached to all appropriate ED monitoring. Denies any further needs at the moment. Call light is within reach. * Polly Valenzuela RN - 07/03/2025 2:30 PM EDT Pt sitting up in chair * Polly Valenzuela RN - 07/03/2025 11:47 AM EDT Pt ambulated to bathroom with help of RN, no BM. * Polly Valenzuela RN - 07/03/2025 9:56 AM EDT Pt ambulated to bathroom and had small loose BM. * Polly Valenzuela RN - 07/03/2025 8:41 AM EDT Pt ambulated to bathroom with walker and RN help. * Walker Johnson RN - 07/03/2025 8:07 AM EDT Report given to Zenobia JUAREZ * Walker Johnson RN - 07/03/2025 7:57 AM EDT Epic chat received back from Nilo CARDENAS: MD to come down to remove rectal tube due to stitches. * Walker Johnson RN - 07/03/2025 7:44 AM EDT Epic chat to Nilo CARDENAS to request MD come to bedside to remove the rectal tube due to ACS MD previously placing tube with stitches into rectum * Walker Johnson RN - 07/03/2025 7:24 AM EDT MD team at bedside. * Walker Johnson RN - 07/03/2025 4:35 AM EDT ACS MD at bedside * Walker Johnson RN - 07/03/2025 4:29 AM EDT Assisted patient to bathroom with walker Patient endorses abdominal pain and nausea, dyspnic with ambulation. Respirations even and unlabored, mildly tachypnic. * Walker Johnson RN - 07/03/2025 3:39 AM EDT Rogelio CARDENAS at bedside * Walker Johnson RN - 07/03/2025 3:18 AM EDT Introduced self to and assumed care of patient. Patient resting in stretcher, denies pain but endorses abdominal pressure. Patient A&Ox4, respirations even and unlabored. Initiated RA trial. NSR on bedside monitor. Family at bedside. * Walker Johnson RN - 07/03/2025 3:04 AM EDT Report received from Seth JUAREZ * Seth Rodriguez RN - 07/03/2025 2:28 AM EDT Pt tx from OSH due to SBO. Pt presented for n/v and abd pain x2 days. Pt had last BM 1800. Pt had active bowl sounds per OSH. Pt got CT and showed said SBO. 18G LAC. 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 AAOX4. 10 pain. NKDA. Pt has previous R clavicle fx. Pt on 2L due to meds given DOWELING MACHINE OPERATOR.FSBS DOWELING MACHINE OPERATOR 146 per ems. * Fuentes Soriano RN - 07/03/2025 2:25 AM EDT Bed: A12U Expected date: Expected time: Means of arrival: Comments: EMS documented in this encounter Miscellaneous Notes * Continuation of Care - Roseline DaigleAUSTIN - 07/10/2025 3:14 PM EST Images from the original note were not included. CONTINUITY OF CARE FORM Patient name: Gladys Feliciano Patient : 1945 Age: 79 y.o. 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 (Findings of one 5 mm polyp in the sigmoid colon, and 2 mucosal ulceration in the rectum) Discharge Diagnosis : concern for large bowel obstruction Prognosis: good Rehabilitation potential: good Diet Diet/Nutrition Orders Diet Regular(7) Frequency: Effective Now Number of Occurrences: Until Specified Order Questions: Suicide/Behavior Risk Modification? No Dysphagia Assessment and Recommendations (when available): Dysphagia Diet Recommended (when available): Regular Diet Services Required Halfway: YES/NO: Yes PT Interventions and Frequency: Treatment/Interventions: LE strengthening/ROM, Endurance training, Patient/family training, Gait training, Equipment eval/education, Compensatory technique education, Continued evaluation, Stair Training, Therapeutic Activity, Therapeutic Exercise PT Frequency during hospitalization: minimum 3x/week PT Recommendations: Recommendation: Short-term skilled PT (recommend 5x/week at discharge) Equipment Recommended: Defer to facility to obtain OT Interventions and Frequency: Treatment Interventions: ADL retraining, Activity Tolerance training, IADL retraining, Energy Conservation, Equipment eval/education, Functional transfer training, Patient/Family training, UE strengthening/ROM, Therapeutic Activity, Compensatory technique education, Lower Extremity Intervention, Excercise OT Frequency during hospitalization: minimum 3x/week OT Recommendations: Recommendation: Short-term skilled OT (recommend 5x/week at discharge) Equipment Recommendations: None Weight bearing status: full Bedside Swallow Recommendations (when available): Speech Language Recommendations (when available): Needs 24 hour supervision due to cognitive impairment: No Discharge Medications Medications: Medication List TAKE these medications, which are NEW Quantity/Refills acetaminophen 325 MG tablet Commonly known as: TYLENOL Take 3 tablets (975 mg total) by mouth every 8 hours as needed for Pain. Refills: 0 aluminum & magnesium hydroxide-simethicone 400-400-40 mg/5 mL suspension Commonly known as: Mylanta Maximum Strength Take 15 mLs by mouth every 6 hours as needed. Refills: 0 calcium carbonate 200 mg calcium (500 mg) chewable tablet Commonly known as: TUMS Chew 1 tablet (500 mg total) by mouth 3 times a day as needed. Refills: 0 QUEtiapine 25 MG tablet Commonly known as: SEROQUEL Take 1 tablet (25 mg total) by mouth at bedtime. Refills: 0 senna-docusate 8.6-50 mg per tablet Commonly known as: SENNA-S Take 1 tablet by mouth daily as needed for Constipation. Refills: 0 TAKE these medications, which you were ALREADY TAKING Quantity/Refills alendronate 70 MG tablet Commonly known as: FOSAMAX Take 1 tablet (70 mg total) by mouth every 7 days. Refills: 0 apixaban 5 mg Tab Commonly known as: ELIQUIS Take 1 tablet (5 mg total) by mouth 2 times a day. Refills: 0 cyclobenzaprine 5 MG tablet Commonly known as: FLEXERIL Take 1 tablet (5 mg total) by mouth 3 times a day as needed for Muscle spasms. Refills: 0 gabapentin 300 MG capsule Commonly known as: NEURONTIN Take 1 capsule (300 mg total) by mouth 3 times a day. Refills: 0 lisinopriL-hydrochlorothiazide 20-12.5 mg per tablet Commonly known as: PRINZIDE Take 1 tablet by mouth daily. Refills: 0 omeprazole 40 MG capsule Commonly known as: PRILOSEC Take 1 capsule (40 mg total) by mouth 2 times a day. Refills: 0 pravastatin 40 MG tablet Commonly known as: PRAVACHOL Take 1 tablet (40 mg total) by mouth daily. Refills: 0 STOP taking these medications meloxicam 15 MG tablet Commonly known as: MOBIC oxyCODONE 5 MG immediate release tablet Commonly known as: ROXICODONE Where to Get Your Medications Information about where to get these medications is not yet available Ask your nurse or doctor about these medications acetaminophen 325 MG tablet aluminum & magnesium hydroxide-simethicone 400-400-40 mg/5 mL suspension calcium carbonate 200 mg calcium (500 mg) chewable tablet QUEtiapine 25 MG tablet senna-docusate 8.6-50 mg per tablet Discharge Specific Orders Discharge specific orders: ACUTE CARE SURGERY SERVICE DISCHARGE INSTRUCTIONS - FACILITY Acute Care Surgery Hotline: [phone] Acute Care Surgery *For questions please call the Acute Care Surgery Hotline and leave a message.* If your call is between the hours of 7:00 AM - 5:00 PM Monday through Monday your call will be returned the same day by one of the Acute Care Surgery Nurses; otherwise your call will be directed to the after hours answering service. When the patient is discharged home please tell the patient to call the Acute Care Surgery Hotline at [phone] or return to an Emergency Department for: 1) Temperature greater than 101?? F. Fever/chills. 2) Worsening pain, nausea, or vomiting not relieved by medications. 3) Increasing redness around incision/wound, drainage, or wound edge separation. 4) Foul smelling drainage from wounds/surgical sites. 5) Chest pain, shortness of breath, persistent dizziness, swelling in one or both legs. RESPIRATORY: Incentive spirometer four times per day and as needed while awake. ELIMINATION: Monitor for urinary retention, urinary incontinence and outputs daily Monitor for regular bowel movements ACTIVITY: Activity as tolerated Out of bed to chair three times a day as tolerated Ambulate three times a day May shower History clavicle fracture - in a sling NWB RUE ANTICOAGULATION: History of provoked DVT, on Eliquis. Continue as prior to hospitalization. Isolation Patient Isolation Status None to display Follow-up Appointments and Post Hospital Discharge Physician Name No future appointments. [facility] [address] [facility] [facility] [address] Follow up Call as needed for Acute Care Surgery Clinic follow up appointment. Placido Mercado MD Paul Agrawal [facility] [id number] Follow up SNF to call PCP for an appointment upon discharge. Medicine Specialties-Gastroenterology [facility] Medicine Specialties [address] [place] [address] Phone: #[phone] Fax: #[phone] Follow up A referral has been sent to GI for further follow up to discuss a repeat non- emergent colonoscopy for polypectomy. You will be contacted by the GI offie to schedule follow up once the referral hasbeen reviewed. If you do not hear from them within a week, please call #[phone] to schedule. SOCIAL WORK DOCUMENTATION Facility/Agency Name: Number to call report: Family Member Name and Relationship Notified at Discharge: Family Contact Number: Hand Candle Dipper or Cow Rider Name and Telephone Number: NURSE DISCHARGE ASSESSMENT Vitals: Patient Vitals for the past 4 hrs: BP Temp Temp src Pulse Resp SpO2 07/10/25 1136 136/73 98.1 ??F (36.7 ??C) Oral 93 16 98 % Orientation: Orientation Level: Oriented X4 Patient Behaviors/Mood: Calm, Cooperative Respiratory: Respiratory (WDL): Exceptions to WDL Respiratory Pattern: Regular, Easy, Unlabored Chest Assessment: Chest expansion symmetrical Bilateral Breath Sounds: Clear, Diminished R Breath Sounds: Clear, Diminished L Breath Sounds: Clear, Diminished Cardiac: Cardiac (WDL): Within Defined Limits Heart Sounds: S1, S2 Edema: Peripheral Vascular (WDL): Exceptions to WDL Edema: Generalized, Right upper extremity, Left upper extremity, Right lower extremity, Left lower extremity Generalized Edema: Non-pitting RUE Edema: Mild pitting, slight indentation LUE Edema: Mild pitting, slight indentation RLE Edema: Moderate pitting, indentation subsides rapidly LLE Edema: Moderate pitting, indentation subsides rapidly Wounds: Comfort/Mattress: Musculoskeletal: Musculoskeletal (WDL): Exceptions to WDL LUE: Full movement RUE: Limited movement, Sling RLE: Full movement LLE: Full movement GI: Gastrointestinal (WDL): Exceptions to WDL GI Symptoms: None Last BM Date: 07/09/25 Bowel Incontinence: No Stool Source: Rectum : Genitourinary (WDL): Within Defined Limits Urinary Incontinence: No Urine Source: Urethra Lines and Drains: Patient Lines/Drains/Airways Status Active LDAs None ADL's: Level of Assistance: Contact guard assist, steadying assist Feeding: Able to feed self Level of Assistance: Minimal assist Fall Risk Precautions in place: Fall Risk Precautions In Place: [place] Restraints: Nurse and Credentials RN Handoff Completed by: on 07/10/2025 Physician Certification of Medically Necessary Transportation, Signature, and Credentials Transportation method: Stretcher - patient is deconditioned Reason for transport to another facility: care home facility requirements Patient requires: Continuous Medical Supervision En Route I certify that the patient's level of care at discharge is: Medicaid Level of Care form completed: PASARR/HENS 7000 Completed: Less than 30 day convalescent stay: *IF less than 30 day convalescent stay is applicable, As the patient's attending physician ( or ), I certify that the individual: Is being discharged to a nursing facility directly from a hospital after receiving acute patient care at the hospital; and Requires nursing facility services for the conversion for which he/she received care in the hospital, and Requires fewer than 30days of nursing facility services, no later than the date of discharge To the best of my knowledge the information provided on this document is a timely and accurate reflection of the patient's condition. I certify that I have reviewed the information contained herein, and that the information is a trueand accurate reflection of the individual's condition. Discharging Physician: Electronically signed by Roseline Daigle CNP / Diaz Cavazos MD 07/10/2025, 1:36 PM [1] No Known Drug Allergies or Adverse Reactions Cosigned by Diaz Cavazos MD at 07/10/2025 5:04 PM EST Associated attestation - Diaz Cavazos MD - 07/10/2025 5:04 PM EST Attending Attestation: DIAZ CAVAZOS MD Attending Surgeon Division of Trauma, Surgical Critical Care, and Acute Care Surgery * Plan of Care - Roseline Daigle CNP - 07/10/2025 1:41 PM EST Brief Plan of Care: Dr. Cartagena director medical science with [facility] [phone] option 5. P2P was approved. SW updated. Roseline Daigle CNP Department of Surgery Division of Trauma, Surgical Critical Care, and Acute Care Surgery * Care Coordination - VINCENT Liriano - 07/10/2025 9:37 AM EST [facility] Case Management/Social Work Department Progress Note Patient Information Patient Name: Gladys Feliciano Hospital day: 7 Inpatient/Observation: Inpatient Level of Care: Med Surg Floor- 9CCP Admit date: 07/03/2025 Admission diagnosis: SBO (small bowel obstruction) ([facility]) [K56.609] PMH: has a past medical history of Hypercholesteremia and Hypertension. PCP: Placido Mercado MD Home Pharmacy: [id number] - [place] [address] [facility] [address] [place] [phone] Medical Insurance Coverage: Payor: HUMANA MANAGED MEDICARE / Plan: HUMANA GOLD PLUS MEDICARE / Product Type: Medicare [facility] Care / Other Pertinent Information SW received report from ACS team and completed chart review. Per team, patient is medically ready for discharge at this time. Patient is anticipated to discharge to [facility] ([facility] [phone]) in [place], [place]. Pre-cert started on 07/08. Per Eduardo, pre-cert remains pending at this time and he will follow up with any updates. ACS team okay if patient's son, Alexa ([phone]), drives patient to SNF at discharge. SW will continue to follow and assist in the discharge planning process. 12:33 PM UPDATE: SW received call from Eduardo stating a peer to peer is being requested with the deadline of 3:30 PM today (07/10). Provider will need to call [phone] option 5. Information providedto AUSTIN Daigle and ACS Nurse Clinician Donal. Discharge Plan Anticipated discharge plan: [facility] Anticipated discharge date: 07/10 vs. 07/11, pending pre-cert CM/SW will continue to follow and remain available for discharge planning needs. VINCENT LIRIANO, GENERAL MANAGER [employer]ACLE DATA CLOUD Inpatient Hand Candle Dipper Care Management Acute Care Surgery, Surgical Oncology, Colorectal Surgery, Thoracic, Vascular, Gynecology, Gynecology/Oncology, Breast, and Pulmonology Can be reached at [phone] or over [employer] Secure Chat * Care Coordination - VINCENT Liriano - 07/09/2025 10:56 AM EST [facility] Case Management/Social Work Department Progress Note Patient Information Patient Name: Gladys Feliciano Hospital day: 6 Inpatient/Observation: Inpatient Level of Care: Med Surg Floor- 9CCP Admit date: 07/03/2025 Admission diagnosis: SBO (small bowel obstruction) (CMS-HCC) [K56.609] PMH: has a past medical history of Hypercholesteremia and Hypertension. PCP: Placido Mercado MD Home Pharmacy: [id number] - [place] - [address] [facility] [address] [phone] Medical Insurance Coverage: Payor: HUMANA MANAGED MEDICARE / Plan: HU[employer]NA Syntervention PLUS MEDICARE / Product Type: Medicare [place] Care / Other Pertinent Information SW received report from ACS team and completed chart review. Per team, patient is medically ready for discharge at this time. Patient is anticipated to discharge to [facility] (E[facility] [phone]) in [place], [place]. Pre-cert started yesterday (07/08) and remains pending at this time. SW met with patient and patient's son, Alexa ([phone]), at bedside to provide update. Patient inquiring if her son is able to drive her to [place] and she can stop at home prior to gather her belongings. SW to confirm safety of this with ACS team and [facility] prior to discharge. SW educated on pre- cert process and that we are awaiting authorization. SW will continue to follow and assist in the discharge planning process. Discharge Plan Anticipated discharge plan: [facility] Anticipated discharge date: 07/09 vs. 07/10, pending pre-cert CM/SW will continue to follow and remain available for discharge planning needs. VINCENT LIRINAO, GENERAL MANAGER [employer]AC[employer] DATA CLOUD Inpatient Hand Candle Dipper Care Management Acute Care Surgery, Surgical Oncology, Colorectal Surgery, Thoracic, Vascular, Gynecology, Gynecology/Oncology, Breast, and Pulmonology Can be reached at [phone] or over [employer] Secure Chat * Plan of Care - Juli Roth MD - 07/09/2025 10:40 AM EST GI plan of care note Flex sig yesterday with no evidence of mass in the sigmoid. No further endoscopic evaluation at this time. Follow up with PCP or outpatient GI to discuss repeat colonoscopy non-emergently for polypectomy. Thank you for involving us in the care of this patient. GI will sign off. Please page if you have questions Patient discussed with the attending physician, Dr Le * Care Coordination - VINCENT Liriano - 07/08/2025 12:54 PM EST [facility] Case Management/Social Work Department Progress Note Patient Information Patient Name: Gladys Feliciano Hospital day: 5 Inpatient/Observation: Inpatient Level of Care: Med Surg Floor- 9CCP Admit date: 07/03/2025 Admission diagnosis: SBO (small bowel obstruction) (CMS-HCC) [K56.609] PMH: has a past medical history of Hypercholesteremia and Hypertension. PCP: Placido Mercado MD Home Pharmacy: [id number] - [place], [place] - [address] [facility] [address] & [address] [place] [address] Medical Insurance Coverage: Payor: HU[employer] MANAGED MEDICARE / Plan: HUMANA Syntervention PLUS MEDICARE / Product Type: Medicare Mngd Care / Other Pertinent Information SW received report from ACS team and completed chart review. Per team, patient is not medically ready for discharge at this time. Flex sig with GI today. Patient is anticipated to discharge to [facility] ([facility] [phone]) in [place], [place] once medically stable. Pre-cert to be started once updated PT note is in. PT attempted to see patient earlier today, however patient was receiving enema so they will re-attempt this afternoon. SW provided update to [facility] and faxed updated OT and progress note to FAX: [phone]. SW will continue to followand assist in the discharge planning process. 4:04 PM UPDATE: DEWAYNE faxed updated PT note. Discharge Plan Anticipated discharge plan: [facility] Anticipated discharge date: End of week, pending clinical course CM/SW will continue to follow and remain available for discharge planning needs. VINCENT LIRIANO, GENERAL MANAGER [employer] Inpatient Hand Candle Dipper Care Management Acute Care Surgery, Surgical Oncology, Colorectal Surgery, Thoracic, Vascular, Gynecology, Gynecology/Oncology, Breast, and Pulmonology Can be reached at [phone] or over [employer] Secure Chat * Plan of Care - Thuy Byers RN - 07/08/2025 10:40 AM EST Problem: Safety Goal: Patient will be injury free during hospitalization Description: Assess and monitor vitals signs, neurological status including level of consciousness and orientation. Assess patient's risk for falls and implement fall prevention plan of care and interventions per hospital policy. Ensure arm band on, uncluttered walking paths in room, adequate room lighting, call light and overbed table within reach, bed in low position, wheels locked, side rails up per policy, and non-skid footwear provided. Outcome: Progressing Problem: Patient will remain free of falls Goal: [place] Fall Precautions Outcome: Progressing Problem: High Fall Risk Precautions Goal: High Fall Risk Precautions Outcome: Progressing Problem: Safety Goal: Patient will be injury free during hospitalization Description: Assess and monitor vitals signs, neurological status including level of consciousness and orientation. Assess patient's risk for falls and implement fall prevention plan of care and interventions per hospital policy. Ensure arm band on, uncluttered walking paths in room, adequate room lighting, call light and overbed table within reach, bed in low position, wheels locked, side rails up per policy, and non-skid footwear provided. Outcome: Progressing Goal: Patient with weight > 350lbs will have appropriate equipment Description: Consider ordering Bariatric Bed, Chair and Bedside Commode for patient weight > 350lbs. Outcome: Progressing Problem: Patient will remain free of falls Goal: [place] Fall Precautions Outcome: Progressing Problem: Daily Care Goal: Daily care needs are met Description: Assess and monitor ability to perform self care and identify potential discharge needs. Outcome: Progressing Problem: Psychosocial Needs Goal: Demonstrates ability to cope with hospitalization/illness Description: Assess and monitor patients ability to cope with his/her illness. Outcome: Progressing Goal: Collaborate with patient/family to identify patient's goals Outcome: Progressing Problem: Discharge Barriers Goal: Patient's discharge needs are met Description: Collaborate with interdisciplinary team and initiate plans and interventions as needed. Outcome: Progressing * Plan of Care - Jacquelyn Smith RN - 07/08/2025 1:50 AM EST Problem: High Fall Risk Precautions Goal: High Fall Risk Precautions Outcome: Progressing Problem: Safety Goal: Patient will be injury free during hospitalization Description: Assess and monitor vitals signs, neurological status including level of consciousness and orientation. Assess patient's risk for falls and implement fall prevention plan of care and interventions per hospital policy. Ensure arm band on, uncluttered walking paths in room, adequate room lighting, call light and overbed table within reach, bed in low position, wheels locked, side rails up per policy, and non-skid footwear provided. Outcome: Progressing * Care Coordination - VINCENT Liriano - 07/07/2025 11:23 AM EST [facility] Case Management/Social Work Department Progress Note Patient Information Patient Name: Gladys Feliciano Hospital day: 4 Inpatient/Observation: Inpatient Level of Care: Med Surg Floor- 9CCP Admit date: 07/03/2025 Admission diagnosis: SBO (small bowel obstruction) (CMS-HCC) [K56.609] PMH: has a past medical history of Hypercholesteremia and Hypertension. PCP: Placido Mercado MD Home Pharmacy: [facility][id number] - [place], [place] - [address] [facility] & [address] [place] [address] Medical Insurance Coverage: Payor: [employer] MANAGED MEDICARE / Plan: HUMANA GOLD PLUS MEDICARE / Product Type: Medicare [facility] Care / Other Pertinent Information SW received report from ACS team and completed chart review. Per team, patient is not medically ready for discharge at this time. GI consulted and pending recs. Patient recommended for SNF and referrals sent to [facility] by CORA Sigala on 07/05. DEWAYNE contacted the [facility] (Cindi [phone]) to follow up on referral. Per Cindi, referral has not been reviewed however they will likely not have a bed available until next week. Cindi to review and follow up. DEWAYNE contacted [facility] (Eduardo [phone]) to follow up onreferral. Per admissions liaison, they did not receive referral and requests it be resent. SW resent referral to FAX: [phone]. 12:49 PM UPDATE: DEWAYNE received call from Eduardo at [facility] stating they are able to accept. They will need updated PT/OT notes to begin pre-cert. DEWAYNE messaged therapy who will attempt to see patient later today. DEWAYNE contacted patient's son, Alexa Feliciano ([phone]), to provide update. Alexa agreeable to [facility] and DEWAYNE educated on pre-cert process. SW will continue to follow and assist in the discharge planning process. Discharge Plan Anticipated discharge plan: SNF, pending acceptance Anticipated discharge date: Mid week, pending GI recs CM/SW will continue to follow and remain available for discharge planning needs. VINCENT LIRIANO, GENERAL MANAGER [employer] Inpatient Hand Candle Dipper Care Management Acute Care Surgery, Surgical Oncology, Colorectal Surgery, Thoracic, Vascular, Gynecology, Gynecology/Oncology, Breast, and Pulmonology Can be reached at [phone] or over [employer] Chat * Plan of Care - Shari Dobbs RN - 07/06/2025 6:55 PM EST Problem: High Fall Risk Precautions Goal: High Fall Risk Precautions Outcome: Progressing Problem: Safety Goal: Patient will be injury free during hospitalization Description: Assess and monitor vitals signs, neurological status including level of consciousness and orientation. Assess patient's risk for falls and implement fall prevention plan of care and interventions per hospital policy. Ensure arm band on, uncluttered walking paths in room, adequate room lighting, call light and overbed table within reach, bed in low position, wheels locked, side rails up per policy, and non-skid footwear provided. Outcome: Progressing Goal: Patient with weight > 350lbs will have appropriate equipment Description: Consider ordering Bariatric Bed, Chair and Bedside Commode for patient weight > 350lbs. Outcome: Progressing Problem: Patient will remain free of falls Goal: [place] Fall Precautions Outcome: Progressing Problem: Daily Care Goal: Daily care needs are met Description: Assess and monitor ability to perform self care and identify potential discharge needs. Outcome: Progressing Problem: Psychosocial Needs Goal: Demonstrates ability to cope with hospitalization/illness Description: Assess and monitor patients ability to cope with his/her illness. Outcome: Progressing Goal: Collaborate with patient/family to identify patient's goals Outcome: Progressing Problem: Discharge Barriers Goal: Patient's discharge needs are met Description: Collaborate with interdisciplinary team and initiate plans and interventions as needed. Outcome: Progressing * Plan of Care - Debbie Frey RN - 07/06/2025 12:07 AM EDT Problem: High Fall Risk Precautions Goal: High Fall Risk Precautions Outcome: Progressing Problem: Safety Goal: Patient will be injury free during hospitalization Description: Assess and monitor vitals signs, neurological status including level of consciousness and orientation. Assess patient's risk for falls and implement fall prevention plan of care and interventions per hospital policy. Ensure arm band on, uncluttered walking paths in room, adequate room lighting, call light and overbed table within reach, bed in low position, wheels locked, side rails up per policy, and non-skid footwear provided. Outcome: Progressing Goal: Patient with weight > 350lbs will have appropriate equipment Description: Consider ordering Bariatric Bed, Chair and Bedside Commode for patient weight > 350lbs. Outcome: Progressing Problem: Patient will remain free of falls Goal: [place] Fall Precautions Outcome: Progressing Problem: Daily Care Goal: Daily care needs are met Description: Assess and monitor ability to perform self care and identify potential discharge needs. Outcome: Progressing Problem: Psychosocial Needs Goal: Demonstrates ability to cope with hospitalization/illness Description: Assess and monitor patients ability to cope with his/her illness. Outcome: Progressing Goal: Collaborate with patient/family to identify patient's goals Outcome: Progressing Problem: Discharge Barriers Goal: Patient's discharge needs are met Description: Collaborate with interdisciplinary team and initiate plans and interventions as needed. Outcome: Progressing * Plan of Care - Jaret Morales MD - 07/05/2025 3:31 PM EDT GI Updated Plan of Care Note: Gladys Feliciano is a 79-year-old woman with PMH of HTN, HLD, GERD, hiatal hernia, and provoked DVT onEliquis who is admitted for acute colonic pseudo-obstruction versus ileus. Per the patient's primary team, she continues to do well with no significant abdominal pain, and she continues to have bowel movements. She is tolerating a regular diet. CT abd/pelvis on 07/04 showeddistension of the cecum to 10 cm (8.8 cm on outside imaging) and the transverse colon to 8.5 cm (8.6 cm on outside imaging). 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 She is being monitored closely because a cecal diameter of > 12 cm would increase her risk for perforation. Although her cecum is slightly increased in size compared to prior, it is still only 10 cm. There is not an indication for endoscopic colonic decompression or neostigmine at this time. Recommend continuation of supportive care. - Continue IV fluids, electrolyte repletion, and avoidance of narcotics - Continue to monitor patient's symptoms clinically - No indication for endoscopic colonic decompression or neostigmine at this time - Can hold off on additional imaging unless patient develops new symptoms The GI team will continue to follow. Please reach out with any questions. Jaret Morales MD Gastroenterology Fellow, PGY-4 * Care Coordination - Nena Sigala - 07/05/2025 2:45 PM EDT [facility] Case Management/Social Work Department Progress Note Patient Information Patient Name: Gladys Feliciano Hospital day: 2 Inpatient/Observation: Inpatient Level of Care: Acute Care Surgery Team Admit date: 07/03/2025 Admission diagnosis: SBO (small bowel obstruction) ([facility]) [K56.609] PMH: has a past medical history of Hypercholesteremia and Hypertension. PCP: Placido Mercado MD Home Pharmacy: [facility] #[id number] - [place] - [address] [facility] & [address] [place] [place] [address] Medical Insurance Coverage: Payor: [employer] MANAGED MEDICARE / Plan: HUMANA GOLD PLUS MEDICARE / Product Type: Medicare Mngd Care / Other Pertinent Information SW received update from medical team, completed chart review. Per team, pt is not medically ready for discharge. SW received update from team that patient is now being recommended for SNF at discharge. SW able to follow up with patient daughter and son at bedside who shared their top two choices are [facility] SW also able to send SNF list to patient son phone ([phone]) per request. Team made aware. Discharge Plan Anticipated discharge plan: SNF Anticipated discharge date: 07/07, estimated pending acceptance and pre cert CM/SW will continue to follow and remain available for discharge planning needs. VINCENT Rizvi, GENERAL MANAGER [employer]OU[employer] Hand Candle Dipper/Used Car Sales Supervisor ([place]) Can be reached by [employer] [phone] or [employer] secure chat * Plan of Care - Thuy Byers RN - 07/05/2025 9:00 AM EDT Problem: High Fall Risk Precautions Goal: High Fall Risk Precautions Outcome: Progressing Problem: Safety Goal: Patient will be injury free during hospitalization Description: Assess and monitor vitals signs, neurological status including level of consciousness and orientation. Assess patient's risk for falls and implement fall prevention plan of care and interventions per hospital policy. Ensure arm band on, uncluttered walking paths in room, adequate room lighting, call light and overbed table within reach, bed in low position, wheels locked, side rails up per policy, and non-skid footwear provided. Outcome: Progressing Problem: Patient will remain free of falls Goal: [place] Fall Precautions Outcome: Progressing Problem: Daily Care Goal: Daily care needs are met Description: Assess and monitor ability to perform self care and identify potential discharge needs. Outcome: Progressing * Plan of Care - Debbie Frey RN - 07/05/2025 5:18 AM EDT Problem: High Fall Risk Precautions Goal: High Fall Risk Precautions Outcome: Progressing Problem: Safety Goal: Patient will be injury free during hospitalization Description: Assess and monitor vitals signs, neurological status including level of consciousness and orientation. Assess patient's risk for falls and implement fall prevention plan of care and interventions per hospital policy. Ensure arm band on, uncluttered walking paths in room, adequate room lighting, call light and overbed table within reach, bed in low position, wheels locked, side rails up per policy, and non-skid footwear provided. Outcome: Progressing Goal: Patient with weight > 350lbs will have appropriate equipment Description: Consider ordering Bariatric Bed, Chair and Bedside Commode for patient weight > 350lbs. Outcome: Progressing Problem: Patient will remain free of falls Goal: [place] Fall Precautions Outcome: Progressing Problem: Daily Care Goal: Daily care needs are met Description: Assess and monitor ability to perform self care and identify potential discharge needs. Outcome: Progressing Problem: Psychosocial Needs Goal: Demonstrates ability to cope with hospitalization/illness Description: Assess and monitor patients ability to cope with his/her illness. Outcome: Progressing Goal: Collaborate with patient/family to identify patient's goals Outcome: Progressing Problem: Discharge Barriers Goal: Patient's discharge needs are met Description: Collaborate with interdisciplinary team and initiate plans and interventions as needed. Outcome: Progressing * Care Coordination - Nena Sigala - 07/04/2025 2:57 PM EDT [facility] Case Management/Social Work Department Progress Note Patient Information Patient Name: Gladys Feliciano Hospital day: 1 Inpatient/Observation: Inpatient Level of Care: Acute Care Surgery Team Admit date: 07/03/2025 Admission diagnosis: HIGH GRADE BOWEL OBSTRUCTION PMH: has a past medical history of Hypercholesteremia and Hypertension. PCP: Placido Mercado MD Home Pharmacy: [facility] #[id number] - [place], [place] - [address] [facility] & [address] [address] Medical Insurance Coverage: Payor: [employer] MANAGED MEDICARE / Plan: HUMANA Syntervention PLUS MEDICARE / Product Type: Medicare Mngd Care / Other Pertinent Information SW received update from medical team, completed chart review. Per team, pt is not medically ready for discharge. Per team, patient with potential bowel obstruction, distension of colon. X-rays pending at this time. Patient established with [facility] for home PT/OT/SN. Will need o rders faxed to [phone]. Discharge Plan Anticipated discharge plan: Home with resumption of HHC Anticipated discharge date: 07/05-07/06, estimated pending clinical course CM/DEWAYNE will continue to follow and remain available for discharge planning needs. Nena Sigala, DIRECTOR OF QUALITY CONTROL, GENERAL MANAGER [employer] DATA CLOUD Hand Candle Dipper/Used Car Sales Supervisor (Float) Can be reached by [employer] [phone] or [employer] secure chat * Care Coordination - Savannah Mejia - 07/04/2025 1:40 PM EDT RYLEE Nuñez was advised by CORA Sigala Patient is active with [facility]. RYLEE called [phone] and spoke with [facility] confirmed patient is active with them for Home PT/OT and assisted. When patient is readyto discharge send orders to fax [phone]. Savannah Mejia Used Car Sales Supervisor Import/Export Agent Care Management Services [phone] documented in this encounter Plan of Treatment Scheduled Referrals Name Type Priority Associated Diagnoses Orde r Schedule Amb referral to Other GI Reasons Outpatient Referral Routine Polyp of sigmoid colon, unspecified type Ordered: 07/09/2025 documented as of this encounter Procedures Procedure Name Priority Date/Time Associated Diagnosis Comments EKG - SCAN 07/11/2025 7:50 AM EST RENAL FUNCTION PANEL W/EGFR STAT 07/10/2025 3:14 AM EST CBC STAT 07/10/2025 3:14 AM EST MAGNESIUM STAT 07/10/2025 3:14 AM EST RENAL FUNCTION PANEL W/EGFR STAT 07/09/2025 3:48 AM EST CBC STAT 07/09/2025 3:48 AM EST MAGNESIUM STAT 07/09/2025 3:48 AM EST SIGMOID FLEXIBLE Sigmoidoscopy 07/08/2025 4:46 PM EST SBO (small bowel obstruction) ([facility]) FLEXIBLE SIGMOIDOSCOPY Routine 07/08/2025 4:42 PM EST HIGH SENSITIVITY TROPONIN STAT 07/08/2025 3:48 AM EST RENAL FUNCTION PANEL W/EGFR STAT 07/08/2025 3:22 AM EST CBC STAT 07/08/2025 3:22 AM EST MAGNESIUM STAT 07/08/2025 3:22 AM EST ECG 12-LEAD (MUSE) Routine 07/08/2025 3: 01 AM EST CEA Routine 07/07/2025 8:51 AM EST RENAL FUNCTION PANEL W/EGFR STAT 07/07/2025 3:44 AM EST CBC STAT 07/07/2025 3:44 AM EST MAGNESIUM STAT 07/07/2025 3:44 AM EST RENAL FUNCTION PANEL W/EGFR STAT 07/06/2025 3:02 AM EST CBC STAT 07/06/2025 3:02 AM EST MAGNESIUM STAT 07/06/2025 3:02 AM EST RENAL FUNCTION PANEL W/EGFR STAT 07/05/2025 9:38 AM EDT CBC STAT 07/05/2025 9:38 AM EDT MAGNESIUM STAT 07/05/2025 9:38 AM EDT T3 Routine 07/04/2025 6:57 PM EDT TSH Routine 07/04/2025 6:57 PM EDT T4 Routine 07/04/2025 6:[address] ABDOMEN AND PELVIS WITH IV CONTRAST Routine 07/04/2025 6:39 PM EDT XR PORTABLE ABDOMEN AP STAT 07/04/2025 9:15 AM EDT RENAL FUNCTION PANEL W/EGFR STAT 07/04/2025 4:54 AM EDT ANTI-XA LMW HEPARIN Timed 07/04/2025 4 :54 AM EDT CBC STAT 07/04/2025 4:54 AM EDT MAGNESIUM STAT 07/04/2025 4:54 AM EDT RENAL FUNCTION PANEL W/EGFR STAT 07/03/2025 10:18 PM EDT MAGNESIUM STAT 07/03/2025 10:18 PM EDT XR PORTABLE ABDOMEN AP STAT 07/03/2025 9:27 PM EDT C-REACTIVE PROTEIN Routine 07/03/2025 7: 49 AM EDT ANTI-XA LMW HEPARIN STAT 07/03/2025 7 :10 AM EDT PHOSPHORUS STAT 07/03/2025 7:10 AM EDT MAGNESIUM STAT 07/03/2025 7:10 AM EDT HEMOGLOBIN A1C Routine 07/03/2025 7:10 AM EDT ED HCV AB REFLEX TO HCV QUANT Routine 07/03/2025 2:35 AM EDT LACTIC ACID, VENOUS BLOOD GAS STAT 07/03/2025 2:35 AM EDT DIFFERENTIAL STAT 07/03/2025 2:35 AM EDT CBC STAT 07/03/2025 2:35 AM EDT BASIC METABOLIC PANEL STAT 07/03/2025 2:35 AM EDT documented in this encounter Results * EKG - scan (07/11/2025 7:50 AM EST) us Scanning [facility] SCAN DOCS - NO RESULTS Final Res ult * (ABNORMAL) Renal Function Panel w/EGFR (07/10/2025 3:14 AM EST) Sodium 137 133 - 146 mmol/L 07/10/2025 4:25 AM EST [facility] Potassium 4.0 3.5 - 5.3 mmol/L 07/10/2025 4:25 AM EST [facility] Chloride 102 98 - 110 mmol/L 07/10/2025 4:25 AM EST [facility] CO2 23 21 - 33 mmol/L 07/10/2025 4:25 AM EST [facility] Comment:High lactate dehydro genase concentrations in patient samples may cause falsely increased bicarbonate results. If markedly elevated LDH is observed or suspected, please assess results in conjunction with patient`s clinical presentation. In cases of discrepant results, consider evaluating CO2 in with a blood gas order. Anion Gap 12 3 - 16 mmol/L 07/10/2025 4:25 AM EST [facility] BUN 20 7 - 25 mg/dL 07/10/2025 4:25 AM EST [facility] Creatinine 0.82 0.60 - 1.30 mg/dL 07/10/2025 4:25 AM EST [facility] Glucose 118(H) 70 - 100 mg/dL 07/10/2025 4:25 AM EST [facility] Calcium 10.3 8.6 - 10.3 mg/dL 07/10/2025 4:25 AM EST [facility] Phosphorus 2.1 2.1 - 4.5 mg/dL 07/10/2025 4:25 AM EST [facility] Albumin 4.1 3.5 - 5.7 g/dL 07/10/2025 4:25 AM EST [facility] Osmolality, Calculated 288 278 - 305 mOsm/kg 07/10/2025 4:25 AM EST [facility] EGFR 74 07/10/2025 4:25 AM EST [facility] Comment:As of 2021, the estimated GFR is calculated using the 2020 Chronic Kidney Disease Epidemiology Collaboration (CKD-EPI) equation. In line with the NKF-ASN Task Force Recommendations, this equation does not include a coefficient for race. A single eGFR value is calculated for each patient. The reference interval is >60 mL/min/1.73m2. eGFR values greater than 90 will be reported as >90mL/min/1.73m2. Reference: Akbar Harrison, Trino M, Ebenezer DC, Mauro ND, Amna CA, Carter LA, et al. A Unifying Approach for GFR Estimation: Recommendations of the NKF-ASN Task Force on Reassessing the inclusion of Race in Diagnosing Kidney Disease. Am J Kidney Dis. 2020. Plasma 07/10/2025 3:14 AM EST 07/10/2025 3:56 AM EST us Brooklyn Guadalupe MD LAB BLOOD ORDERABLES Final Re sult Performing Organization Address [facility] Co de Phone Number [facility] [address] * Magnesium (07/10/2025 3:14 AM EST) Magnesium 1.8 1.5 - 2.5 mg/dL 07/10/2025 4:25 AM EST [facility] Plasma 07/10/2025 3:14 AM EST 07/10/2025 3:56 AM EST us Brooklny Guadalupe MD LAB BLOOD ORDERABLES Final Re sult Performing Organization Address City/[facility] Co de Phone Number [facility] [address] * (ABNORMAL) CBC (07/10/2025 3:14 AM EST) WBC 7.0 3.8 - 10.8 10E3/uL 07/10/2025 4:27 AM EST [facility] RBC 3.65(L) 3.80 - 5.10 10E6/uL 07/10/2025 4:27 AM EST [facility] Hemoglobin 9.0(L) 11.7 - 15.5 g/dL 07/10/2025 4:27 AM EST [facility] Hematocrit 27.8(L) 35.0 - 45.0 % 07/10/2025 4:27 AM EST [facility] MCV 76.2(L) 80.0 - 100.0 fL 07/10/2025 4:27 AM EST [facility] MCH 24.6(L) 27.0 - 33.0 pg 07/10/2025 4:27 AM EST [facility] MCHC 32.2 32.0 - 36.0 g/dL 07/10/2025 4:27 AM EST [facility] RDW 18.5(H) 11.0 - 15.0 % 07/10/2025 4:27 AM EST [facility] Platelets 439(H) 140 - 400 10E3/uL 07/10/2025 4:27 AM EST [facility] MPV 7.0(L) 7.5 - 11.5 fL 07/10/2025 4:27 AM EST [facility] Whole Blood 07/10/2025 3:14 AM EST 07/10/2025 3:56 AM EST us Brooklyn Guadalupe MD LAB BLOOD ORDERABLES Final Re sult [facility] [address] * (ABNORMAL) Renal Function Panel w/EGFR (07/09/2025 3:48 AM EST) Sodium 135 133 - 146 mmol/L 07/09/2025 5:17 AM EST [facility] Potassium 3.5 3.5 - 5.3 mmol/L 07/09/2025 5:17 AM EST [facility] Chloride 104 98 - 110 mmol/L 07/09/2025 5:17 AM [facility] CO2 24 21 - 33 mmol/L 07/09/2025 5:17 AM [facility] Comment:High lactate dehydro genase concentrations in patient samples may cause falsely increased bicarbonate results. If markedly elevated LDH is observed or suspected, please assess results in conjunction with patient`s clinical presentation. In cases of discrepant results, consider evaluating CO2 in with a blood gas order. Anion Gap 7 3 - 16 mmol/L 07/09/2025 5:17 AM EST [facility] BUN 15 7 - 25 mg/dL 07/09/2025 5:17 AM [facility] Creatinine 0.74 0.60 - 1.30 mg/dL 07/09/2025 5:17 AM [facility] Glucose 101(H) 70 - 100 mg/dL 07/09/2025 5:17 AM [facility] Calcium 9.5 8.6 - 10.3 mg/dL 07/09/2025 5:17 AM [facility] Phosphorus 3.7 2.1 - 4.5 mg/dL 07/09/2025 5:17 AM [facility] Albumin 3.6 3.5 - 5.7 g/dL 07/09/2025 5:17 AM [facility] Osmolality, Calculated 281 278 - 305 mOsm/kg 07/09/2025 5:17 AM [facility] EGFR 83 07/09/2025 5:17 AM [facility] Comment:As of 2021, the estimated GFR is calculated using the 2020 Chronic Kidney Disease Epidemiology Collaboration (CKD-EPI) equation. In line with the NKF-ASN Task Force Recommendations, this equation does not include a coefficient for race. A single eGFR value is calculated for each patient. The reference interval is >60 mL/min/1.73m2. eGFR values greater than 90 will be reported as >90mL/min/1.73m2. Reference: Akbar C, Trino M, Ebenezer DC, Mauro ND, Amna CA, Carter LA, et al. A Unifying Approach for GFR Estimation: Recommendations of the NKF-ASN Task Force on Reassessing the inclusion of Race in Diagnosing Kidney Disease. Am J Kidney Dis. 2021. Plasma 07/09/2025 3:48 AM EST 07/09/2025 4:17 AM EST us Brooklyn Guadalupe MD LAB BLOOD ORDERABLES Final Re sult Performing Organization Address [facility] Co de Phone Number [facility] [address] [facility]. [address] * Magnesium (07/09/2025 3:48 AM EST) Magnesium 1.9 1.5 - 2.5 mg/dL 07/09/2025 5:17 AM EST [facility] Plasma 07/09/2025 3:48 AM EST 07/09/2025 4:17 AM EST us Brooklyn Guadalupe MD LAB BLOOD ORDERABLES Final Re sult Performing Organization Address [facility] de Phone Number [facility] [address] [facility]. [address] * (ABNORMAL) CBC (07/09/2025 3:48 AM EST) WBC 5.0 3.8 - 10.8 10E3/uL 07/09/2025 4:37 AM EST [facility] RBC 3.28(L) 3.80 - 5.10 10E6/uL 07/09/2025 4:37 AM EST [facility] Hemoglobin 8.1(L) 11.7 - 15.5 g/dL 07/09/2025 4:37 AM EST [facility] Hematocrit 25.1(L) 35.0 - 45.0 % 07/09/2025 4:37 AM EST [facility] MCV 76.6(L) 80.0 - 100.0 fL 07/09/2025 4:37 AM EST [facility] MCH 24.8(L) 27.0 - 33.0 pg 07/09/2025 4:37 AM EST [facility] MCHC 32.4 32.0 - 36.0 g/dL 07/09/2025 4:37 AM EST [facility] RDW 18.3(H) 11.0 - 15.0 % 07/09/2025 4:37 AM EST [facility] Platelets 412(H) 140 - 400 10E3/uL 07/09/2025 4:37 AM EST [facility] MPV 6.7(L) 7.5 - 11.5 fL 07/09/2025 4:37 AM EST [facility] Whole Blood 07/09/2025 3:48 AM EST 07/09/2025 4:17 AM EST us Brooklyn Guadalupe MD LAB BLOOD ORDERABLES Final Re sult [facility] [address] * FLEXIBLE SIGMOIDOSCOPY (07/08/2025 4:42 PM EST) 07/08/2025 4:42 PM EST Narrative [facility] - 07/08/2025 6:24 PM EST [id number] Procedure Date: 07/08/2025 4:42 PM Patient Name: Gladys Feliciano Date of : 1945 Admit Type: Inpatient Age: 79 Gender: Female Note Status: Finalized Attending MD: Vik Le , , [id number] Procedure: Flexible Sigmoidoscopy Indications: Abnormal CT of the GI tract Patient Profile: 79 y.o. F w/ a PMHx of hiatal hernia, who presents with findings concerning for acute colonic pseudoobstruction. CT abdomen and pelvis with concerns for obstruction at the splenic flexure Providers: Juli Spivey MD (Fellow) Referring MD: Attending Provider Unknown Medicines: Monitored Anesthesia Care Complications: No immediate complications. Procedure: Pre-Anesthesia Assessment: - Prior to the procedure, a History and Physical was performed, and patient medications and allergies were reviewed. The patient is competent. The risks and benefits of the procedure and the sedation options and risks were discussed with the patient. All questions were answered and informed consent was obtained. Patient identification and proposed procedure were verified by the physician, the nurse, the anesthesiologist, the corporate safety manager and the chief technician x ray in the pre-procedure area in the procedure room. Mental Status Examination: alert and oriented. Airway Examination: normal oropharyngeal airway and neck mobility. Respiratory Examination: clear to auscultation. CV Examination: normal. Prophylactic Antibiotics: The patient does not require prophylactic antibiotics. Prior Anticoagulants: The patient has taken no anticoagulant or antiplatelet agents. ASA Grade Assessment: III - A patient with severe systemic disease. After reviewing the risks and benefits, the patient was deemed in satisfactory condition to undergo the procedure. The anesthesia plan was to use monitored anesthesia care (MAC). Immediately prior to administration of medications, the patient was re-assessed for adequacy to receive sedatives. The heart rate, respiratory rate, oxygen saturations, blood pressure, adequacy of pulmonary ventilation, and response to care were monitored throughout the procedure. The physical status of the patient was re-assessed after the procedure. After obtaining informed consent, the endoscope was passed under direct vision. Throughout the procedure, the patient's blood pressure, pulse, and oxygen saturations were monitored continuously. The Colonoscope was introduced through the anus and advanced to the left transverse colon. The flexible sigmoidoscopy was accomplished without difficulty. The patient tolerated the procedure well. The quality of the bowel preparation was adequate. Findings: The perianal and digital rectal examinations were normal. The colonoscope was advanced to the transverse colon A 5 mm polyp was found in the sigmoid colon. Polypectomy was not attempted due to the patient taking anticoagulation medication. 2 nonbleeding ulcerated mucosa with no stigmata of recent bleeding were present in the rectum. A moderate amount of stool was found in the rectum, in the descending colon and in the transverse colon, making visualization difficult. Lavage of the area was performed using copious amounts, resulting in clearance with fair visualization. No evidence of mass or inflammation in the examined portion of the colon up to the transverse colon. Estimated Blood Loss: Estimated blood loss: none. Impression: - One 5 mm polyp in the sigmoid colon. Resection not attempted. - 2 mucosal ulceration in the rectum. - Stool in the rectum, in the descending colon and in the transverse colon. - No specimens collected. Recommendation: - Return patient to [facility] for ongoing care. - Resume previous diet. - Resume previous medicatios - Outpatient follow up to discuss repeat colonoscopy for polypectomy with PCP based on risk-benefit Procedure Code(s): --- Professional --- 16353, GC, Sigmoidoscopy, flexible; diagnostic, including collection of specimen(s) by brushing or washing, when performed (separate procedure) Diagnosis Code(s): --- Professional --- D12.5, Benign neoplasm of sigmoid colon R93.3, Abnormal findings on diagnostic imaging of other parts of digestive tract CPT copyright 2022 [employer]. All rights reserved. The codes documented in this report are preliminary and upon livestock farmers review may be revised to meet current compliance requirements. Attending Participation: I was present and participated during the entire procedure, including non-grajeda portions. Vik Le MD Vik Le, 07/08/2025 6:23:54 PM This report has been signed electronically.Vik Lloyd MD Juli Roth MD 07/08/2025 6:22:34 PM Total Procedure Duration Time 0 hours 9 minutes 36 seconds Scope In: 4:55:27 PM Scope Out: 5:05:[address] [place] [address], [facility] us Attending Provider Unknown PROCEDURE/MINOR SURGI HANNA ORDERABLES Final Result [facility] * High Sensitivity Troponin (07/08/2025 3:48 AM EST) High Sensitivity Troponin 8 0 - 14 ng/L 07/08/2025 4:34 AM EST [facility] Serum 07/08/2025 3:48 AM EST 07/08/2025 4:07 AM EST Robin Ribeiro MD LAB BLOOD ORDERABLES Final Result [facility] [address] * (ABNORMAL) Renal Function Panel w/EGFR (07/08/2025 3:22 AM EST) Sodium 137 133 - 146 mmol/L 07/08/2025 4:38 AM EST [facility] Potassium 3.8 3.5 - 5.3 mmol/L 07/08/2025 4:38 AM EST [facility] Chloride 103 98 - 110 mmol/L 07/08/2025 4:38 AM EST [facility] CO2 20(L) 21 - 33 mmol/L 07/08/2025 4:38 AM EST [facility] Comment:High lactate dehydro genase concentrations in patient samples may cause falsely increased bicarbonate results. If markedly elevated LDH is observed or suspected, please assess results in conjunction with patient`s clinical presentation. In cases of discrepant results, consider evaluating CO2 in with a blood gas order. Anion Gap 14 3 - 16 mmol/L 07/08/2025 4:38 AM EST [facility] BUN 15 7 - 25 mg/dL 07/08/2025 4:38 AM EST [facility] Creatinine 0.85 0.60 - 1.30 mg/dL 07/08/2025 4:38 AM EST [facility] Glucose 109(H) 70 - 100 mg/dL 07/08/2025 4:38 AM EST [facility] Calcium 9.7 8.6 - 10.3 mg/dL 07/08/2025 4:38 AM EST [facility] Phosphorus 3.2 2.1 - 4.5 mg/dL 07/08/2025 4:38 AM EST [facility] Albumin 4.0 3.5 - 5.7 g/dL 07/08/2025 4:38 AM EST [facility] Osmolality, Calculated 285 278 - 305 mOsm/kg 07/08/2025 4:38 AM EST [facility] EGFR 71 07/08/2025 4:38 AM EST [facility] Comment:As of 2021, the estimated GFR is calculated using the 2020 Chronic Kidney Disease Epidemiology Collaboration (CKD-EPI) equation. In line with the NKF-ASN Task Force Recommendations, this equation does not include a coefficient for race. A single eGFR value is calculated for each patient. The reference interval is >60 mL/min/1.73m2. eGFR values greater than 90 will be reported as >90mL/min/1.73m2. Reference: Akbar Harrison, Trino M, Ebenezer DC, Mauro ND, Amna GARCIA, Carter LA, et al. A Unifying Approach for GFR Estimation: Recommendations of the NKF-ASN Task Force on Reassessing the inclusion of Race in Diagnosing Kidney Disease. Am J Kidney Dis. 2020. Plasma 07/08/2025 3:22 AM EST 07/08/2025 4:07 AM EST Brooklyn Guadalupe MD LAB BLOOD ORDERABLES Final Re sult Performing Organization Address City/[facility]/ZIP Co de Phone Number [facility] [address] [facility]. [address] * Magnesium (07/08/2025 3:22 AM EST) Magnesium 2.4 1.5 - 2.5 mg/dL 07/08/2025 4:38 AM EST [facility] Plasma 07/08/2025 3:22 AM EST 07/08/2025 4:07 AM EST Brooklyn Guadalupe MD LAB BLOOD ORDERABLES Final Re sult Performing Organization Address City/[facility]/ZIP Co de Phone Number [facility] [address] [facility]. [address] * (ABNORMAL) CBC (07/08/2025 3:22 AM EST) WBC 5.2 3.8 - 10.8 10E3/uL 07/08/2025 4:14 AM EST [facility] RBC 4.04 3.80 - 5.10 10E6/uL 07/08/2025 4:14 AM EST [facility] Hemoglobin 9.8(L) 11.7 - 15.5 g/dL 07/08/2025 4:14 AM EST [facility] Hematocrit 30.5(L) 35.0 - 45.0 % 07/08/2025 4:14 AM EST [facility] MCV 75.4(L) 80.0 - 100.0 fL 07/08/2025 4:14 AM EST [facility] MCH 24.3(L) 27.0 - 33.0 pg 07/08/2025 4:14 AM EST [facility] MCHC 32.2 32.0 - 36.0 g/dL 07/08/2025 4:14 AM EST [facility] RDW 18.6(H) 11.0 - 15.0 % 07/08/2025 4:14 AM EST [facility] Platelets 513(H) 140 - 400 10E3/uL 07/08/2025 4:14 AM EST [facility] MPV 7.2(L) 7.5 - 11.5 fL 07/08/2025 4:14 AM EST [facility] Whole Blood 07/08/2025 3:22 AM EST 07/08/2025 4:07 AM EST us Brooklyn Guadalupe MD LAB BLOOD ORDERABLES Final Re sult [facility] [address] * ECG 12-lead (MUSE) (07/08/2025 3:01 AM EST) 07/08/2025 3:01 AM EST Narrative MUSE - 07/08/2025 11:39 AM EST Ventricular Rate: 106 BPM Atrial Rate: 106 BPM P-R Interval: 122 ms QRS Duration: 70 ms QT: 330 ms QTc: 438 ms P [place]: 85 degrees R [place]: 84 degrees T [place]: 137 degrees Diagnosis Line: SINUS TACHYCARDIA ^ NONSPECIFIC ST SEGMENT CHANGE ^ ABNORMAL ECG ^ No previous ECGs available ^ Confirmed by Kei HENDERSON MD ([id number]) on 07/08/2025 11:39:00 AM Robin Ribeiro MD ECG ORDERABLES Liliya l Result MUSE * (ABNORMAL) CEA (07/07/2025 8:51 AM EST) CEA 5.6(H) 0.0 - 3.0 ng/mL 07/07/2025 11:30 AM EST [facility] Serum 07/07/2025 8:51 AM EST 07/07/2025 9:13 AM EST Narrative [facility] - 07/07/2025 11:30 AM EST The testing method for CEA is a chemiluminescent immunoassay manufactured by [employer] Concentrations of CEA obtained by different assay methods or kits may vary and cannot be used interchangeably. CEA results cannot be interpreted as absolute evidence of the presence or absence of malignant disease. Roseline Daigle [facility] BLOOD ORDERABLES Final Result Performing Organization Address [facility] Co de Phone Number [facility] [address] * Renal Function Panel w/EGFR (07/07/2025 3:44 AM EST) Sodium 136 133 - 146 mmol/L 07/07/2025 4:16 AM EST [facility] Potassium 3.7 3.5 - 5.3 mmol/L 07/07/2025 4:16 AM EST [facility] Chloride 104 98 - 110 mmol/L 07/07/2025 4:16 AM EST [facility] CO2 24 21 - 33 mmol/L 07/07/2025 4:16 AM EST [facility] Comment:High lactate dehydro genase concentrations in patient samples may cause falsely increased bicarbonate results. If markedly elevated LDH is observed or suspected, please assess results in conjunction with patient`s clinical presentation. In cases of discrepant results, consider evaluating CO2 in with a blood gas order. Anion Gap 8 3 - 16 mmol/L 07/07/2025 4:16 AM EST [facility] BUN 12 7 - 25 mg/dL 07/07/2025 4:16 AM EST [facility] Creatinine 0.73 0.60 - 1.30 mg/dL 07/07/2025 4:16 AM EST [facility] Glucose 86 70 - 100 mg/dL 07/07/2025 4:16 AM EST [facility] Calcium 8.9 8.6 - 10.3 mg/dL 07/07/2025 4:16 AM EST [facility] Phosphorus 3.4 2.1 - 4.5 mg/dL 07/07/2025 4:16 AM EST [facility] Albumin 3.5 3.5 - 5.7 g/dL 07/07/2025 4:16 AM EST [facility] Osmolality, Calculated 281 278 - 305 mOsm/kg 07/07/2025 4:16 AM EST [facility] EGFR 85 07/07/2025 4:16 AM EST [facility] Comment:As of 2021, the estimated GFR is calculated using the 2020 Chronic Kidney Disease Epidemiology Collaboration (CKD-EPI) equation. In line with the NKF-ASN Task Force Recommendations, this equation does not include a coefficient for race. A single eGFR value is calculated for each patient. The reference interval is >60 mL/min/1.73m2. eGFR values greater than 90 will be reported as >90mL/min/1.73m2. Reference: Akbar C, Trino M, Ebenezer DC, Mauro ND, Amna CA, Carter LA, et al. A Unifying Approach for GFR Estimation: Recommendations of the NKF-ASN Task Force on Reassessing the inclusion of Race in Diagnosing Kidney Disease. Am J Kidney Dis. 2020. Plasma 07/07/2025 3:44 AM EST 07/07/2025 3:48 AM EST us Brooklyn Guadalupe MD LAB BLOOD ORDERABLES Final Re sult [facility] [address] * Magnesium (07/07/2025 3:44 AM EST) Magnesium 1.6 1.5 - 2.5 mg/dL 07/07/2025 4:16 AM [facility] Plasma 07/07/2025 3:44 AM EST 07/07/2025 3:48 AM EST Brooklyn Guadalupe MD LAB BLOOD ORDERABLES Final Re sult [facility] [address] * (ABNORMAL) CBC (07/07/2025 3:44 AM EST) WBC 5.2 3.8 - 10.8 10E3/uL 07/07/2025 4:04 AM [facility] RBC 3.45(L) 3.80 - 5.10 10E6/uL 07/07/2025 4:04 AM [facility] Hemoglobin 8.5(L) 11.7 - 15.5 g/dL 07/07/2025 4:04 AM [facility] Hematocrit 26.7(L) 35.0 - 45.0 % 07/07/2025 4:04 AM [facility] MCV 77.5(L) 80.0 - 100.0 fL 07/07/2025 4:04 AM [facility] MCH 24.8(L) 27.0 - 33.0 pg 07/07/2025 4:04 AM [facility] MCHC 32.0 32.0 - 36.0 g/dL 07/07/2025 4:04 AM [facility] RDW 18.8(H) 11.0 - 15.0 % 07/07/2025 4:04 AM [facility] Platelets 411(H) 140 - 400 10E3/uL 07/07/2025 4:04 AM [facility] MPV 6.6(L) 7.5 - 11.5 fL 07/07/2025 4:04 AM [facility] Whole Blood 07/07/2025 3:44 AM EST 07/07/2025 3:48 AM EST us Brooklyn Guadalupe MD LAB BLOOD ORDERABLES Final Re sult [facility] [address] [place] [address], [facility] * Renal Function Panel w/EGFR (07/06/2025 3:02 AM EST) Sodium 137 133 - 146 mmol/L 07/06/2025 6:23 AM EST [facility] Potassium 3.9 3.5 - 5.3 mmol/L 07/06/2025 6:23 AM EST [facility] Chloride 105 98 - 110 mmol/L 07/06/2025 6:23 AM EST [facility] CO2 22 21 - 33 mmol/L 07/06/2025 6:23 AM EST [facility] Comment:High lactate dehydro genase concentrations in patient samples may cause falsely increased bicarbonate results. If markedly elevated LDH is observed or suspected, please assess results in conjunction with patient`s clinical presentation. In cases of discrepant results, consider evaluating CO2 in with a blood gas order. Anion Gap 10 3 - 16 mmol/L 07/06/2025 6:23 AM EST [facility] BUN 12 7 - 25 mg/dL 07/06/2025 6:23 AM [facility] Creatinine 0.61 0.60 - 1.30 mg/dL 07/06/2025 6:23 AM EST [facility] Glucose 81 70 - 100 mg/dL 07/06/2025 6:23 AM EST [facility] Calcium 9.0 8.6 - 10.3 mg/dL 07/06/2025 6:23 AM [facility] Phosphorus 2.9 2.1 - 4.5 mg/dL 07/06/2025 6:23 AM [facility] Albumin 3.5 3.5 - 5.7 g/dL 07/06/2025 6:23 AM [facility] Osmolality, Calculated 283 278 - 305 mOsm/kg 07/06/2025 6:23 AM EST [facility] EGFR >90 07/06/2025 6:23 AM [facility] Comment: As of 2021, the estimated GFR is calculated using the 2020 Chronic Kidney Disease Epidemiology Collaboration (CKD-EPI) equation. In line with the NKF-ASN Task Force Recommendations, this equation does not include a coefficient for race. A single eGFR value is calculated for each patient. The reference interval is >60 mL/min/1.73m2. eGFR values greater than 90 will be reported as >90mL/min/1.73m2. Reference: Akbar C, Trino M, Ebenezer DC, Mauro ND, Amna CA, Carter LA, et al. A Unifying Approach for GFR Estimation: Recommendations of the NKF-ASN Task Force on Reassessing the inclusion of Race in Diagnosing Kidney Disease. Am J Kidney Dis. 2020. GFR is estimated using creatinine, age, and sex. Patient's values should be interpreted as a trend. Below 90 mL/min/1.73m2, the patient may have renal disease. For additional information: www.kidney.org Plasma 07/06/2025 3:02 AM EST 07/06/2025 5:33 AM EST Brooklyn Guadalupe MD LAB BLOOD ORDERABLES Final Re sult Performing Organization Address City/[facility]/ZIP Co de Phone Number [facility] [address] [place] [address] * Magnesium (07/06/2025 3:02 AM EST) Magnesium 1.7 1.5 - 2.5 mg/dL 07/06/2025 6:23 AM EST [facility] Plasma 07/06/2025 3:02 AM EST 07/06/2025 5:33 AM EST Brooklyn Guadalupe MD LAB BLOOD ORDERABLES Final Re sult Performing Organization Address City/[facility]/ZIP Co de Phone Number [facility] [address] [place] [address] * (ABNORMAL) CBC (07/06/2025 3:02 AM EST) WBC 5.1 3.8 - 10.8 10E3/uL 07/06/2025 5:57 AM EST [facility] RBC 3.29(L) 3.80 - 5.10 10E6/uL 07/06/2025 5:57 AM EST [facility] Hemoglobin 8.3(L) 11.7 - 15.5 g/dL 07/06/2025 5:57 AM EST [facility] Hematocrit 25.3(L) 35.0 - 45.0 % 07/06/2025 5:57 AM EST [facility] MCV 77.1(L) 80.0 - 100.0 fL 07/06/2025 5:57 AM EST [facility] MCH 25.1(L) 27.0 - 33.0 pg 07/06/2025 5:57 AM EST [facility] MCHC 32.6 32.0 - 36.0 g/dL 07/06/2025 5:57 AM EST [facility] RDW 18.5(H) 11.0 - 15.0 % 07/06/2025 5:57 AM EST [facility] Platelets 426(H) 140 - 400 10E3/uL 07/06/2025 5:57 AM EST [facility] MPV 7.1(L) 7.5 - 11.5 fL 07/06/2025 5:57 AM [facility] Whole Blood 07/06/2025 3:02 AM EST 07/06/2025 5:33 AM EST Brooklyn Guadalupe MD LAB BLOOD ORDERABLES Final Re sult [facility] [address] * (ABNORMAL) Renal Function Panel w/EGFR (07/05/2025 9:38 AM EDT) Sodium 134 133 - 146 mmol/L 07/05/2025 10:28 AM EDT [facility] Potassium 4.0 3.5 - 5.3 mmol/L 07/05/2025 10:28 AM EDT [facility] Chloride 102 98 - 110 mmol/L 07/05/2025 10:28 AM EDT [facility] CO2 23 21 - 33 mmol/L 07/05/2025 10:28 AM [facility] Comment:High lactate dehydro genase concentrations in patient samples may cause falsely increased bicarbonate results. If markedly elevated LDH is observed or suspected, please assess results in conjunction with patient`s clinical presentation. In cases of discrepant results, consider evaluating CO2 in with a blood gas order. Anion Gap 9 3 - 16 mmol/L 07/05/2025 10:28 AM EDT [facility] [facility] BUN 9 7 - 25 mg/dL [facility]/05[facility]2025 10:28 AM [facility] Creatinine 0.68 0.60 - 1.30 mg/dL 07/05/2025 10:28 AM [facility] Glucose 133(H) 70 - 100 mg/dL 07/05/2025 10:28 AM [facility] Calcium 9.0 8.6 - 10.3 mg/dL 07/05/2025 10:28 AM [facility] Phosphorus 2.9 2.1 - 4.5 mg/dL 07/05/2025 10:28 AM [facility] Albumin 3.6 3.5 - 5.7 g/dL 07/05/2025 10:28 AM [facility] Osmolality, Calculated 279 278 - 305 mOsm/kg 07/05/2025 10:28 AM [facility] EGFR 90 07/05/2025 10:28 AM [facility] Comment:As of 2021, the estimated GFR is calculated using the 2020 Chronic Kidney Disease Epidemiology Collaboration (CKD-EPI) equation. In line with the NKF-ASN Task Force Recommendations, this equation does not include a coefficient for race. A single eGFR value is calculated for each patient. The reference interval is >60 mL/min/1.73m2. eGFR values greater than 90 will be reported as >90mL/min/1.73m2. Reference: Akbar C, Trino M, Ebenezer DC, Mauro ND, Amna GARCIA, Carter LA, et al. A Unifying Approach for GFR Estimation: Recommendations of the NKF-ASN Task Force on Reassessing the inclusion of Race in Diagnosing Kidney Disease. Am J Kidney Dis. 2020. Plasma 07/05/2025 9:38 AM EDT 07/05/2025 9:49 AM EDT us Brooklyn Guadalupe MD LAB BLOOD ORDERABLES Final Re sult [facility] [address] * Magnesium (07/05/2025 9:38 AM EDT) Magnesium 1.8 1.5 - 2.5 mg/dL 07/05/2025 10:28 AM EDT [facility] Plasma 07/05/2025 9:38 AM EDT 07/05/2025 9:49 AM EDT Brooklyn Guadalupe MD LAB BLOOD ORDERABLES Final Re sult Performing Organization Address City/[facility] Co de Phone Number [facility] [address] [facility]. [address] * (ABNORMAL) CBC (07/05/2025 9:38 AM EDT) WBC 5.7 3.8 - 10.8 10E3/uL 07/05/2025 10:30 AM EDT [facility] RBC 3.57(L) 3.80 - 5.10 10E6/uL 07/05/2025 10:30 AM EDT [facility] Hemoglobin 8.8(L) 11.7 - 15.5 g/dL 07/05/2025 10:30 AM EDT [facility] Hematocrit 27.5(L) 35.0 - 45.0 % 07/05/2025 10:30 AM EDT [facility] MCV 77.1(L) 80.0 - 100.0 fL 07/05/2025 10:30 AM EDT [facility] MCH 24.5(L) 27.0 - 33.0 pg 07/05/2025 10:30 AM EDT [facility] MCHC 31.8(L) 32.0 - 36.0 g/dL 07/05/2025 10:30 AM EDT [facility] RDW 19.0(H) 11.0 - 15.0 % 07/05/2025 10:30 AM EDT [facility] Platelets 419(H) 140 - 400 10E3/uL 07/05/2025 10:30 AM EDT [facility] MPV 6.7(L) 7.5 - 11.5 fL 07/05/2025 10:30 AM EDT [facility] Whole Blood 07/05/2025 9:38 AM EDT 07/05/2025 9:49 AM EDT Brooklyn Guadalupe MD LAB BLOOD ORDERABLES Final Re sult [facility] [address] [facility]. [address] * T4 (Thyroxine) (07/04/2025 6:57 PM EDT) T4, Total 7.60 4.60 - 11.50 ug/dL 07/04/2025 8:28 PM EDT [facility] Serum 07/04/2025 6:57 PM EDT 07/04/2025 7:48 PM EDT Steffanie Corcoran MD LAB BLOOD ORDERABLES Fin al Result Performing Organization Address [facility] Co de Phone Number [facility] [address] [facility]. [address] * T3, Total (07/04/2025 6:57 PM EDT) T3, Total 66.6 60.0 - 220.0 ng/dL 07/04/2025 8:38 PM EDT [facility] Comment:Biotin megadosing (c onsumption >300 mcg/day) may falsely elevate total T3. When indicated, discontinue megadosing for 1 week and repeat testing. Serum 07/04/2025 6:57 PM EDT 07/04/2025 7:48 PM EDT Steffanie Corcoran MD LAB BLOOD ORDERABLES Fin al Result [facility] [address] * TSH (Thyroid Stimulating Hormone) (07/04/2025 6:57 PM EDT) TSH 1.57 0.45 - 4.12 uIU/mL 07/04/2025 8:57 PM EDT [facility] Serum 07/04/2025 6:57 PM EDT 07/04/2025 7:48 PM EDT us Steffanie Corcoran MD LAB BLOOD ORDERABLES Fin al Result [facility] [address] * CT Abdomen and Pelvis With IV contrast (07/04/2025 6:39 PM EDT) Anatomical Region Laterality Modality Abdomen, Pelvis Computed Tomogra phy 07/04/2025 6:35 PM EDT Impressions 07/05/2025 7:56 AM EDT IMPRESSION: Mild diffuse small bowel dilatation and moderate colonic distention, with the cecum measuring 10 cm in the transverse colon 8.5 cm. The appearance is concerning for colonic obstruction at the splenic flexure level, although colonic ileus can have a similar appearance. Report Verified by: Dk Jimenes MD at 07/05/2025 7:56 AM EDT Narrative 07/05/2025 7:56 AM EDT EXAM: CT ABDOMEN AND PELVIS WITH IV CONTRAST INDICATION: Abdominal pain, acute, nonlocalized, Assess cecal diameter in setting of colonic pseudoobstruction TECHNIQUE: CT of the abdomen and pelvis was performed after the administration of intravenous contrast. Axial images were obtained with coronal and sagittal reconstructions. CONTRAST: 140 mL of IOHEXOL 350 MG IODINE/ML INTRAVENOUS SOLUTION administered intravenously FIELD OF VIEW: 50 cm DATE: 07/04/2025 6:35 PM EDT COMPARISON: Recent radiographs and outside CT dated July 02, 2025 FINDINGS: Lower chest: Mild bibasilar atelectasis. Trace bilateral pleural effusions. Normal heart size. Liver: Normal morphology and density. There are multiple small low-density liver lesions measuring up to 2 cm. These are likely small benign cysts and/or hemangiomas. Biliary tree:No biliary dilatation. Normal gallbladder. Spleen: Normal size with calcified granulomas. Pancreas: Normal, somewhat atrophic. Adrenal glands: Normal Kidneys/Ureters/Bladder: The kidneys appear mildly atrophic with cortical scarring. Symmetric enhancement. No stones, hydronephrosis, or mass lesions. Collapsed urinary bladder. Gastrointestinal tract: Large sliding hiatal hernia with half the stomach above the diaphragm. The stomach is collapsed. Mild diffuse small bowel dilatation with fluid and gas, with loops measuring up to 4 cm. There is distention of the right and transverse colon with the cecum measuring 10 cm in the transverse colon 8.5 cm. The descending colon is relatively collapsed as is the rectosigmoid. There are multiple small radiopaque objects, likely pills, in the splenic flexure at the level of transition. These were present on July 02 and have not moved. The appendix is not visualized. Lymphatics: No lymphadenopathy. Vasculature: Minimal atherosclerosis. No aneurysm. Peritoneum/Retroperitoneum: Trace ascites. No free air. Genital Organs: Atrophic. Abdominal wall/Soft tissues: Mild subcutaneous edema. Osseous structures: No acute osseous abnormalities or suspicious osseous lesions. 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 L4-5 posterior fusion with grade 2 anterolisthesis of L4 on L5. Severe L5-S1 degenerative disc disease. Procedure Note Dk Jimenes MD - 07/05/2025 EXAM: CT ABDOMEN AND PELVIS WITH IV CONTRAST INDICATION: Abdominal pain, acute, nonlocalized, Assess cecal diameter insetting of colonic pseudoobstruction TECHNIQUE: CT of the abdomen and pelvis was performed after theadministration of intravenous contrast. Axial images were obtained withcoronal and sagittal reconstructions. CONTRAST: 140 mL of IOHEXOL 350 MG IODINE/ML INTRAVENOUS SOLUTIONadministered intravenously FIELD OF VIEW: 50 cm DATE: 07/04/2025 6:35 PM EDT COMPARISON: Recent radiographs and outside CT dated July 02, 2025 FINDINGS: Lower chest: Mild bibasilar atelectasis. Trace bilateral pleuraleffusions. Normal heart size. Liver: Normal morphology and density. There are multiple small low-densityliver lesions measuring up to 2 cm. These are likely small benign cystsand/or hemangiomas. Biliary tree:No biliary dilatation. Normal gallbladder. Spleen: Normal size with calcified granulomas. Pancreas: Normal, somewhat atrophic. Adrenal glands: Normal Kidneys/Ureters/Bladder: The kidneys appear mildly atrophic with corticalscarring. Symmetric enhancement. No stones, hydronephrosis, or masslesions. Collapsed urinary bladder. Gastrointestinal tract: Large sliding hiatal hernia with half the stomachabove the diaphragm. The stomach is collapsed. Mild diffuse small boweldilatation with fluid and gas, with loops measuring up to 4 cm. There isdistention of the right and transverse colon with the cecum measuring 10cm in the transverse colon 8.5 cm. The descending colon is relativelycollapsed as is the rectosigmoid. There are multiple small radiopaqueobjects, likely pills, in the splenic flexure at the level of transition.These were present on July 02 and have not moved. The appendix is notvisualized. Lymphatics: No lymphadenopathy. Vasculature: Minimal atherosclerosis. No aneurysm. Peritoneum/Retroperitoneum: Trace ascites. No free air. Genital Organs: Atrophic. Abdominal wall/Soft tissues: Mild subcutaneous edema. Osseous structures: No acute osseous abnormalities or suspicious osseouslesions. 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 L4-5 posteriorfusion with grade 2 anterolisthesis of L4 on L5. Severe L5-S1 degenerativedisc disease. IMPRESSION: Mild diffuse small bowel dilatation and moderate colonic distention, withthe cecum measuring 10 cm in the transverse colon 8.5 cm. The appearanceis concerning for colonic obstruction at the splenic flexure level,although colonic ileus can have a similar appearance. Report Verified by: Dk Jimenes MD at 07/05/2025 7:56 AM EDT Steffanie Corcoran MD IMG CT ORDERABLES Final Result * X-ray Portable Abdomen AP view (07/04/2025 9:15 AM EDT) Anatomical Region Laterality Modality Abdomen Radiographic Carmella ging 07/04/2025 9:02 AM EDT Impressions 07/04/2025 10:06 AM EDT IMPRESSION: Unchanged diffuse gaseous distention of both small bowel and colonic loops, which may represent ileus or colonic obstruction. Report Verified by: Collette Chavez MD at 07/04/2025 10:06 AM EDT Narrative 07/04/2025 10:06 AM EDT EXAM: XR PORTABLE ABDOMEN AP INDICATION: Abdominal distention TECHNIQUE: Supine AP view of the abdomen COMPARISON: 07/03/2025 FINDINGS: Unchanged diffuse gaseous distention of both small bowel and colonic loops. Cecal diameter is indeterminate secondary to overlap of multiple bowel loops. No free air on this single supine radiograph. There is a large hiatal hernia. There is mild bibasilar atelectasis. Status post L4-L5 posterior spinal fusion. Procedure Note Collette Chavez MD - 07/04/2025 EXAM: XR PORTABLE ABDOMEN AP INDICATION: Abdominal distention TECHNIQUE: Supine AP view of the abdomen COMPARISON: 07/03/2025 FINDINGS: Unchanged diffuse gaseous distention of both small bowel and colonicloops. Cecal diameter is indeterminate secondary to overlap of multiplebowel loops. No free air on this single supine radiograph. There is alarge hiatal hernia. There is mild bibasilar atelectasis. Status postL4-L5 posterior spinal fusion. IMPRESSION: Unchanged diffuse gaseous distention of both small bowel and colonicloops, which may represent ileus or colonic obstruction. Report Verified by: Collette Chavez MD at 07/04/2025 10:06 AM EDT Steffanie Corcoran MD IMG DIAGNOSTIC IMAGING O RDERABLES Final Result * (ABNORMAL) Renal Function Panel w/EGFR (07/04/2025 4:54 AM EDT) Sodium 133 133 - 146 mmol/L 07/04/2025 5:27 AM EDT [facility] Potassium 4.5 3.5 - 5.3 mmol/L 07/04/2025 5:27 AM EDT [facility] Comment:Hemolysis Present: R esults may be influenced artificially. Recommend recollection as clinically indicated. Chloride 104 98 - 110 mmol/L 07/04/2025 5:27 AM EDT [facility] CO2 24 21 - 33 mmol/L 07/04/2025 5:27 AM EDT [facility] Comment:High lactate dehydro genase concentrations in patient samples may cause falsely increased bicarbonate results. If markedly elevated LDH is observed or suspected, please assess results in conjunction with patient`s clinical presentation. In cases of discrepant results, consider evaluating CO2 in with a blood gas order. Anion Gap 5 3 - 16 mmol/L 07/04/2025 5:27 AM EDT [facility] BUN 14 7 - 25 mg/dL 07/04/2025 5:27 AM EDT [facility] Creatinine 0.72 0.60 - 1.30 mg/dL 07/04/2025 5:27 AM EDT [facility] Glucose 119(H) 70 - 100 mg/dL 07/04/2025 5:27 AM EDT [facility] Calcium 9.0 8.6 - 10.3 mg/dL 07/04/2025 5:27 AM EDT [facility] Phosphorus 3.8 2.1 - 4.5 mg/dL 07/04/2025 5:27 AM EDT [facility] Albumin 3.5 3.5 - 5.7 g/dL 07/04/2025 5:27 AM EDT [facility] Osmolality, Calculated 278 278 - 305 mOsm/kg 07/04/2025 5:27 AM EDT [facility] EGFR 86 07/04/2025 5:27 AM EDT [facility] Comment:As of 2021, the estimated GFR is calculated using the 2020 Chronic Kidney Disease Epidemiology Collaboration (CKD-EPI) equation. In line with the NKF-ASN Task Force Recommendations, this equation does not include a coefficient for race. A single eGFR value is calculated for each patient. The reference interval is >60 mL/min/1.73m2. eGFR values greater than 90 will be reported as >90mL/min/1.73m2. Reference: Akbar C, Trino M, Ebenezer DC, Mauro ND, Amna CA, Carter LA, et al. A Unifying Approach for GFR Estimation: Recommendations of the NKF-ASN Task Force on Reassessing the inclusion of Race in Diagnosing Kidney Disease. Am J Kidney Dis. 2020. Plasma 07/04/2025 4:54 AM EDT 07/04/2025 4:58 AM EDT Brooklyn Guadalupe MD LAB BLOOD ORDERABLES Final Re sult [facility] [address] * (ABNORMAL) Magnesium (07/04/2025 4:54 AM EDT) Magnesium 2.8(H) 1.5 - 2.5 mg/dL 07/04/2025 5:27 AM EDT [facility] Plasma 07/04/2025 4:54 AM EDT 07/04/2025 4:58 AM EDT us Brooklyn Guadalupe MD LAB BLOOD ORDERABLES Final Re uk healthcaret Performing Organization Address [facility] Co de Phone Number [facility] [address] [facility]. [address] * (ABNORMAL) CBC (07/04/2025 4:54 AM EDT) WBC 7.0 3.8 - 10.8 10E3/uL 07/04/2025 5:38 AM EDT [facility] RBC 3.31(L) 3.80 - 5.10 10E6/uL 07/04/2025 5:38 AM EDT [facility] Hemoglobin 8.3(L) 11.7 - 15.5 g/dL 07/04/2025 5:38 AM EDT [facility] Hematocrit 25.7(L) 35.0 - 45.0 % 07/04/2025 5:38 AM EDT [facility] MCV 77.7(L) 80.0 - 100.0 fL 07/04/2025 5:38 AM EDT [facility] MCH 25.2(L) 27.0 - 33.0 pg 07/04/2025 5:38 AM EDT [facility] MCHC 32.4 32.0 - 36.0 g/dL 07/04/2025 5:38 AM EDT [facility] RDW 18.8(H) 11.0 - 15.0 % 07/04/2025 5:38 AM EDT [facility] Platelets 426(H) 140 - 400 10E3/uL 07/04/2025 5:38 AM EDT [facility] MPV 6.6(L) 7.5 - 11.5 fL 07/04/2025 5:38 AM EDT [facility] Whole Blood 07/04/2025 4:54 AM EDT 07/04/2025 5:05 AM EDT us Brooklyn Guadalupe MD LAB BLOOD ORDERABLES Final Re sult [facility] [address] [facility]. [address] * Anti-Xa LMW Heparin (07/04/2025 4:54 AM EDT) Anti-Xa LMW Heparin 0.57 0.50 - 1.10 units/mL 07/04/2025 5:35 AM EDT [facility] Plasma 07/04/2025 4:54 AM EDT 07/04/2025 5:05 AM EDT us Brooklyn Guadalupe MD LAB BLOOD ORDERABLES Final Re sult Performing Organization Address [facility] Co de Phone Number [facility] [address] [facility] * Magnesium, STAT (07/03/2025 10:18 PM EDT) Magnesium 1.5 1.5 - 2.5 mg/dL 07/03/2025 10:49 PM EDT [facility] Plasma 07/03/2025 10:1 8 PM EDT 07/03/2025 10:29 PM EDT us Brooklyn Guadalupe MD LAB BLOOD ORDERABLES Final Re sult Performing Organization Address City/[facility]/ZIP Co de Phone Number [facility] [address] [facility] * Renal Function Panel w/EGFR, STAT (07/03/2025 10:18 PM EDT) Sodium 136 133 - 146 mmol/L 07/03/2025 10:49 PM EDT [facility] Potassium 3.7 3.5 - 5.3 mmol/L 07/03/2025 10:49 PM EDT [facility] Chloride 104 98 - 110 mmol/L 07/03/2025 10:49 PM EDT [facility] CO2 24 21 - 33 mmol/L 07/03/2025 10:49 PM EDT [facility] Comment:High lactate dehydro genase concentrations in patient samples may cause falsely increased bicarbonate results. If markedly elevated LDH is observed or suspected, please assess results in conjunction with patient`s clinical presentation. In cases of discrepant results, consider evaluating CO2 in with a blood gas order. Anion Gap 8 3 - 16 mmol/L 07/03/2025 10:49 PM EDT [facility] BUN 14 7 - 25 mg/dL 07/03/2025 10:49 PM EDT [facility] Creatinine 0.73 0.60 - 1.30 mg/dL 07/03/2025 10:49 PM EDT [facility] Glucose 86 70 - 100 mg/dL 07/03/2025 10:49 PM EDT [facility] Calcium 9.1 8.6 - 10.3 mg/dL 07/03/2025 10:49 PM EDT [facility] Phosphorus 2.8 2.1 - 4.5 mg/dL 07/03/2025 10:49 PM EDT [facility] Albumin 3.6 3.5 - 5.7 g/dL 07/03/2025 10:49 PM EDT [facility] Osmolality, Calculated 282 278 - 305 mOsm/kg 07/03/2025 10:49 PM EDT [facility] EGFR 85 07/03/2025 10:49 PM T [facility] Comment:As of 2021, the estimated GFR is calculated using the 2020 Chronic Kidney Disease Epidemiology Collaboration (CKD-EPI) equation. In line with the NKF-ASN Task Force Recommendations, this equation does not include a coefficient for race. A single eGFR value is calculated for each patient. The reference interval is >60 mL/min/1.73m2. eGFR values greater than 90 will be reported as >90mL/min/1.73m2. Reference: Akbar C, Trino M, Ebenezer DC, Mauro ND, Amna CA, Carter VILLATORO, et al. A Unifying Approach for GFR Estimation: Recommendations of the NKF-ASN Task Force on Reassessing the inclusion of Race in Diagnosing Kidney Disease. Am J Kidney Dis. 2020. Plasma 07/03/2025 10:1 8 PM EDT 07/03/2025 10:29 PM EDT us Brooklyn Guadalupe MD LAB BLOOD ORDERABLES Final Re sult [facility] [address] [place] [address], [facility] * X-ray Portable Abdomen AP view (07/03/2025 9:27 PM EDT) Anatomical Region Laterality Modality Abdomen Radiographic Carmella ging 07/03/2025 8:53 PM EDT Impressions 07/03/2025 10:00 PM EDT IMPRESSION: 1. Generalized distention of the small and large bowel loops suggest ileus versus distal obstruction. Report Verified by: Ariel Guillaume MD at 07/03/2025 10:00 PM EDT Narrative 07/03/2025 10:00 PM EDT EXAM: XR PORTABLE ABDOMEN AP INDICATION: Colonic distention TECHNIQUE: Supine AP view abdomen and pelvis. COMPARISON: Outside images dated July 02, 2025 FINDINGS: Lung bases are clear. Moderate to large sliding-type hiatal hernia. Moderate gaseous distention of the bowel loops throughout the abdomen involving small and large bowel loops. Air is seen distally in the rectum. Evaluation for free intraperitoneal air and air-fluid level is limited in supine position. Multilevel spondylosis of the lumbar spine. L4-5 posterior spinal fusion. Mild arthrosis of the hip joints. No acute osseous abnormality. Procedure Note Chris Guillaume MD - 07/03/2025 EXAM: XR PORTABLE ABDOMEN AP INDICATION: Colonic distention TECHNIQUE: Supine AP view abdomen and pelvis. COMPARISON: Outside images dated July 02, 2025 FINDINGS: Lung bases are clear. Moderate to large sliding-type hiatal hernia. Moderate gaseous distention of the bowel loops throughout the abdomeninvolving small and large bowel loops. Air is seen distally in the rectum. Evaluation for free intraperitoneal air and air-fluid level is limited insupine position. Multilevel spondylosis of the lumbar spine. L4-5 posterior spinal fusion. Mild arthrosis of the hip joints. No acute osseous abnormality. IMPRESSION: 1. Generalized distention of the small and large bowel loops suggestileus versus distal obstruction. Report Verified by: Ariel Guillaume MD at 07/03/2025 10:00 PM EDT us Brooklyn Guadalupe MD IMG DIAGNOSTIC IMAGING ORDERA BLES Final Result * C-Reactive Protein (07/03/2025 7:49 AM EDT) CRP 3.0 1.0 - 10.0 mg/L 07/03/2025 8:14 AM EDT [facility] Plasma 07/03/2025 7:49 AM EDT 07/03/2025 7:53 AM EDT Steffanie Corcoran MD LAB BLOOD ORDERABLES Fin al Result Performing Organization Address City/[facility]/ZIP Co de Phone Number [facility] [address] [facility]. [address] * Phosphorus, STAT (07/03/2025 7:10 AM EDT) Phosphorus 3.6 2.1 - 4.5 mg/dL 07/03/2025 7:54 AM EDT [facility] Plasma 07/03/2025 7:10 AM EDT 07/03/2025 7:20 AM EDT Brooklyn Guadalupe MD LAB BLOOD ORDERABLES Final Re sult [facility] [address] * Magnesium, STAT (07/03/2025 7:10 AM EDT) Magnesium 1.6 1.5 - 2.5 mg/dL 07/03/2025 7:54 AM EDT [facility] Plasma 07/03/2025 7:10 AM EDT 07/03/2025 7:20 AM EDT us Brooklyn Guadalupe MD LAB BLOOD ORDERABLES Final Re sult Performing Organization Address [facility] Co de Phone Number [facility] [address] [facility]. [address] * Hemoglobin A1C (07/03/2025 7:10 AM EDT) Hemoglobin A1C 5.2 4.0 - 5.6 % 07/04/2025 1:23 AM EDT [facility] Comment: Hemoglobin A1c Interpretation Guidelines: Normal: <5.7% Prediabetes: 5.7-6.4% Diabetes: >6.4% Diagnosis requires two independent tests unless clinical diagnosis is clear. Some clinical conditions, particularly anemias and hemoglobinopathies, may interfere with the diagnostic accuracy of hemoglobin A1c. The recommended goal for diabetic glycemic control (Hemoglobin A1c <7.0%) should be individualized based on duration of diabetes, age/life expectancy, comorbid conditions, known CVD or advanced microvascular complications, hypoglycemia unawareness, and other individual patient considerations. Whole Blood 07/03/2025 7:10 AM EDT 07/03/2025 7:20 AM EDT Brooklyn Guadalupe MD LAB BLOOD ORDERABLES Final Re sult Performing Organization Address [facility] Co de Phone Number [facility] [address] [place] [facility]. [address] * (ABNORMAL) Anti-Xa LMW Heparin (07/03/2025 7:10 AM EDT) Anti-Xa LMW Heparin 1.46(H) 0.50 - 1.10 units/mL 07/03/2025 7:39 AM EDT [facility] Plasma 07/03/2025 7:10 AM EDT 07/03/2025 7:20 AM EDT us Brooklyn Guadalupe MD LAB BLOOD ORDERABLES Final Re sult Performing Organization Address [facility]/ZIP Co de Phone Number [facility] [address] * Lactic acid, venous, whole blood (07/03/2025 2:35 AM EDT) Lactate, Danny 0.9 0.5 - 1.6 mmol/L 07/03/2025 2:44 AM EDT [facility] Blood, Venous 07/03/2025 2:3 5 AM EDT 07/03/2025 2:41 AM EDT us Veronika Mercado MD LAB BLOOD ORDERABLES Final Resul t [facility] [address] * Differential (07/03/2025 2:35 AM EDT) Pathologist [facility] Neutrophils Relative 72.2 40.0 - 80.0 % 07/03/2025 2:51 AM EDT [facility] Lymphocytes Relative 18.3 15.0 - 45.0 % 07/03/2025 2:51 AM EDT [facility] Monocytes Relative 7.2 0.0 - 12.0 % 07/03/2025 2:51 AM EDT [facility] Eosinophils Relative 1.8 0.0 - 8.0 % 07/03/2025 2:51 AM EDT [facility] Basophils Relative 0.5 0.0 - 1.0 % 07/03/2025 2:51 AM EDT [facility] nRBC 0 0 - 0 /100 WBC 07/03/2025 2:51 AM EDT [facility] Neutrophils Absolute 5,126 1,520 - 8,640 /uL 07/03/2025 2:51 AM EDT [facility] Lymphocytes Absolute 1,299 570 - 4,860 /uL 07/03/2025 2:51 AM EDT [facility] Monocytes Absolute 511 0 - 1,296 /uL 07/03/2025 2:51 AM EDT [facility] Eosinophils Absolute 128 0 - 864 /uL 07/03/2025 2:51 AM EDT [facility] Basophils Absolute 36 0 - 108 /uL 07/03/2025 2:51 AM EDT [facility] Whole Blood 07/03/2025 2:35 AM EDT 07/03/2025 2:46 AM EDT us Veronika Mercado MD LAB BLOOD ORDERABLES Final Resul t [facility] [address] [id number], [facility] * (ABNORMAL) CBC (07/03/2025 2:35 AM EDT) WBC 7.1 3.8 - 10.8 10E3/uL 07/03/2025 2:51 AM EDT [facility] RBC 3.47(L) 3.80 - 5.10 10E6/uL 07/03/2025 2:51 AM EDT [facility] Hemoglobin 8.8(L) 11.7 - 15.5 g/dL 07/03/2025 2:51 AM EDT [facility] Hematocrit 26.6(L) 35.0 - 45.0 % 07/03/2025 2:51 AM EDT [facility] MCV 76.6(L) 80.0 - 100.0 fL 07/03/2025 2:51 AM EDT [facility] MCH 25.4(L) 27.0 - 33.0 pg 07/03/2025 2:51 AM EDT [facility] MCHC 33.2 32.0 - 36.0 g/dL 07/03/2025 2:51 AM EDT [facility] RDW 18.3(H) 11.0 - 15.0 % 07/03/2025 2:51 AM EDT [facility] Platelets 486(H) 140 - 400 10E3/uL 07/03/2025 2:51 AM EDT [facility] MPV 6.4(L) 7.5 - 11.5 fL 07/03/2025 2:51 AM EDT [facility] Whole Blood 07/03/2025 2:35 AM EDT 07/03/2025 2:46 AM EDT us Veronika Mercado MD LAB BLOOD ORDERABLES Final Resul t Performing Organization Address City/[facility]/ZIP Co de Phone Number [facility] [address] * ED HCV Ab Reflex To HCV Quant (07/03/2025 2:35 AM EDT) HCV Ab Nonreactive Nonreactive 07/03/2025 4:12 AM EDT [facility] Comment:Health Department no tified in accordance with reportable infectious disease guidelines. HCVAB Number 0.02 0.00 - 0.79 S/CO 07/03/2025 4:12 AM EDT [facility] Serum 07/03/2025 2:35 AM EDT 07/03/2025 2:46 AM EDT Veronika Mercado MD LAB BLOOD ORDERABLES Final Resul t Performing Organization Address [facility] de Phone Number [facility] [address] [facility] * (ABNORMAL) Basic metabolic panel (07/03/2025 2:35 AM EDT) Sodium 131(L) 133 - 146 mmol/L 07/03/2025 3:06 AM EDT [facility] Potassium 3.4(L) 3.5 - 5.3 mmol/L 07/03/2025 3:06 AM EDT [facility] Chloride 97(L) 98 - 110 mmol/L 07/03/2025 3:06 AM EDT [facility] CO2 25 21 - 33 mmol/L 07/03/2025 3:06 AM EDT [facility] Comment:High lactate dehydro genase concentrations in patient samples may cause falsely increased bicarbonate results. If markedly elevated LDH is observed or suspected, please assess results in conjunction with patient`s clinical presentation. In cases of discrepant results, consider evaluating CO2 in with a blood gas order. Anion Gap 9 3 - 16 mmol/L 07/03/2025 3:06 AM EDT [facility] BUN 21 7 - 25 mg/dL 07/03/2025 3:06 AM EDT [facility] Creatinine 0.88 0.60 - 1.30 mg/dL 07/03/2025 3:06 AM EDT [facility] Glucose 110(H) 70 - 100 mg/dL 07/03/2025 3:06 AM EDT [facility] Calcium 9.4 8.6 - 10.3 mg/dL 07/03/2025 3:06 AM EDT [facility] Osmolality, Calculated 276(L) 278 - 305 mOsm/kg 07/03/2025 3:06 AM EDT [facility] EGFR 68 07/03/2025 3:06 AM EDT [facility] Comment:As of 2021, the estimated GFR is calculated using the 2020 Chronic Kidney Disease Epidemiology Collaboration (CKD-EPI) equation. In line with the NKF-ASN Task Force Recommendations, this equation does not include a coefficient for race. A single eGFR value is calculated for each patient. The reference interval is >60 mL/min/1.73m2. eGFR values greater than 90 will be reported as >90mL/min/1.73m2. Reference: Akbar C, Trino M, Ebenezer DC, Mauro ND, Amna CA, Carter LA, et al. A Unifying Approach for GFR Estimation: Recommendations of the NKF-ASN Task Force on Reassessing the inclusion of Race in Diagnosing Kidney Disease. Am J Kidney Dis. 2020. Plasma 07/03/2025 2:35 AM EDT 07/03/2025 2:41 AM EDT us Veronika Mercado MD LAB BLOOD ORDERABLES Final Resul t [facility] [address] documented in this encounter Visit Diagnoses Diagnosis SBO (small bowel obstruction) ([facility])- Primary Unspecified intestinal obstruction Polyp of sigmoid colon, unspecified type documented in this encounter Administered Medications Inactive Administered Medications - up to 3 most recent administrations Medication Order MAR Action Action Date Dose Rate Site acetaminophen (TYLENOL) tablet 975 mg 975 mg, Oral, Every 8 hours PRN, mild pain (NRS 1-3); no comparable CPOT score, moderate pain (NRS 4-6) or if patient is non-communicative (CPOT 3-5), Starting on 07/06/25 at 1904 Given 07/09/2025 6:08 PM EST 975 mg Given 07/09/2025 12:00 AM EST 975 mg Given 07/08/2025 1:07 PM EST 975 mg aluminum & magnesium hydroxide-simethicone (MYLANTA) suspension 15 mL 15 mL, Oral, Every 6 hours PRN, Heartburn, Indigestion, Starting on Mon07/09/25 at 2043 Given 07/09/2025 9:34 PM EST 15 mLs apixaban (ELIQUIS) tablet 5 mg 5 mg, Oral, 2 times daily, First dose on 07/06/25 at 0900, For patients who are unable to swallow whole tablets, 5 mg and 2.5 mg ELIQUIS tablets may be crushed and suspended in water, 5% dextrose in water (D5W), or apple juice, or mixed with applesauce and promptly administered orally. Alternatively, ELIQUIS tablets may be crushed and suspended in 60 mL of water or D5W and promptly delivered through a nasogastric tube. Crushed ELIQUIS tablets are stable in water, D5W, apple juice, and applesauce for up to 4 hours. Restricted to FDA labeled indications. Given 07/10/2025 8:32 AM EST 5 mg Given 07/09/2025 9:21 PM EST 5 mg Given 07/09/2025 9:24 AM EST 5 mg atorvastatin (LIPITOR) tablet 10 mg 10 mg, Oral, At Bedtime (2100), First dose on 07/06/25 at 2100, Therapeutic Interchange: pravastatin (PRAVACHOL) 40 mg daily = atorvastatin (LIPITOR) 10 mg dose at bedtime Given 07/09/2025 9:21 PM EST 10 mg Given 07/08/2025 9:46 PM EST 10 mg Given 07/07/2025 10:20 PM EST 10 mg calcium carbonate (TUMS) chewable tablet 500 mg 500 mg, Oral, 3 times daily PRN, Heartburn, Indigestion, Starting on Mon07/04/25 at 1858 Given 07/09/2025 6:0 8 PM EST 500 mg Given 07/08/2025 11:54 PM EST 500 mg Given 07/08/2025 9:46 PM EST 500 mg dextrose 5 % and 0.45 % NaCl with KCl 20 mEq infusion 1000 mL 75 mL/hr, Intravenous, Continuous, Starting on Mon07/04/25 at 0330 New Bag 07/04/2025 10:45 PM EDT 75 mL/hr 75 mL/hr New Bag 07/04/2025 3:38 AM EDT 75 mL/hr 75 mL/hr diphenhydrAMINE (BENADRYL) capsule 25 mg 25 mg, Oral, Nightly PRN, Agitation, Starting on Mon07/07/25 at 2339 Given 07/09/2025 9:21 PM EST 25 mg Given 07/08/2025 9:46 PM EST 25 mg Given 07/07/2025 11:26 PM EST 25 mg gabapentin (NEURONTIN) capsule 300 mg 300 mg, Oral, 3 times daily, First dose on Mon07/03/25 at 0900 Given 07/10/2025 2:34 PM EST 300 mg Given 07/10/2025 8:32 AM EST 300 mg Given 07/09/2025 9:21 PM EST 300 mg heparin (porcine) injection 5,000 Units 5,000 Units, Subcutaneous, Every 8 hours scheduled (3 times per day), First dose on Mon07/03/25 at 0615 Given 07/06/2025 6:31 AM EST 5,000 Units Abdominal Tissue Given 07/05/2025 10:18 PM EDT 5,000 Units Left Arm Given 07/05/2025 2:59 PM EDT 5,000 Units R ight Arm hydrALAZINE (APRESOLINE) 20 mg/mL injection 10 mg 10 mg, Intravenous, Every 6 hours PRN, For SBP greater than : , 160, hold for HR > 100, Starting on Willa 07/03/25 at 0644 Given 07/09/2025 11:42 PM EST 10 mg Given 07/08/2025 1:07 AM EST 10 mg HYDROmorphone (DILAUDID) injection 0.3 mg 0.3 mg, Intravenous, Every 2 hour PRN, moderate pain (NRS 4-6) or if patient is non-communicative (CPOT 3-5), Starting on Willa 07/03/25 at 0642, For 48 hours, If on IV and PO pain medications, use IV if patient cannot tolerate oral. Given 07/04/2025 8:14 AM EDT 0.3 mg Given 07/04/2025 2:28 AM EDT 0.3 mg HYDROmorphone (DILAUDID) injection 0.5 mg 0.5 mg, Intravenous, Once, On Willa 07/03/25 at 0430, For 1 dose Given 07/03/2025 4:32 AM EDT 0.5 mg HYDROmorphone (DILAUDID) injection 0.5 mg 0.5 mg, Intravenous, Every 2 hour PRN, severe pain (NRS 7-10) or if patient is non-communicative (CPOT 6-8), Starting on Willa 07/03/25 at 0642, For 48 hours, If on IV and PO pain medications, use IV if patient cannot tolerate oral. Given 07/05/2025 4:59 AM EDT 0.5 mg Given 07/04/2025 8:55 PM EDT 0.5 mg Given 07/04/2025 6:04 PM EDT 0.5 mg HYDROmorphone (DILAUDID) injection 0.5 mg 0.5 mg, Intravenous, Once, On Mon07/07/25 at 0130, For 1 dose Given 07/07/2025 1:38 AM EST 0.5 mg magnesium sulfate in sterile water 100 mL IVPB 4 g 4 g, Intravenous, at 25 mL/hr, Once, On Willa 07/03/25 at 2345, For 1 dose New Bag 07/04/2025 1:19 AM EDT 4 g 25 mL/hr magnesium sulfate in sterile water 100 mL IVPB 4 g 4 g, Intravenous, at 25 mL/hr, Once, On Mon07/07/25 at 0700, For 1 dose New Bag 07/07/2025 3:33 PM EST 4 g 25 mL/hr methocarbamoL (ROBAXIN) injection 500 mg 500 mg, Intravenous, Every 8 hours PRN, Muscle spasms, Starting on W[place] 07/03/25 at 0644, May be administered slow IV Push; no faster than 3 mL/min. Do not exceed 3 grams per 24 hours. Contraindicated in patients with renal dysfunction. Given 07/05/2025 4:58 AM EDT 500 mg Given 07/04/2025 8:15 AM EDT 500 mg Given 07/03/2025 9:58 PM EDT 500 mg methocarbamoL (ROBAXIN) tablet 500 mg 500 mg, Oral, 4 times daily PRN, Muscle spasms, Starting on 07/05/25 at 0725 Given 07/10/2025 1:46 AM EST 500 mg Given 07/09/2025 6:08 PM EST 500 mg Given 07/08/2025 11:56 PM EST 500 mg OMNIPAQUE (iohexol) 350 mg iodine/mL 140 mL 140 mL, Intravenous, IMG once as needed, contrast, Starting on Mon07/04/25 at 1910, For 1 dose Given 07/04/2025 6:40 PM EDT 140 mLs ondansetron (ZOFRAN) injection 4 mg 4 mg, Intravenous, Once, On [place] 07/03/25 at 0430, For 1 dose Given 07/03/2025 4:32 AM EDT 4 mg ondansetron (ZOFRAN) injection 4 mg 4 mg, Intravenous, Every 6 hours PRN, Nausea and/or Vomiting, Starting on [place] 07/03/25 at 0642 Given 07/04/2025 2:07 PM EDT 4 mg ondansetron (ZOFRAN) tablet 4 mg 4 mg, Oral, Every 6 hours PRN, Nausea and/or Vomiting, Starting on 07/07/25 at 1414 Given 07/08/2025 1:07 AM EST 4 mg oxyCODONE (ROXICODONE) immediate release tablet 5 mg 5 mg, Oral, Every 4 hours PRN, severe pain (NRS 7-10) or if patient is non-communicative (CPOT 6-8), Starting on 07/05/25 at 0927 Given 07/06/2025 12:06 PM EST 5 mg Given 07/06/2025 6:31 AM EST 5 mg Given 07/06/2025 2:18 AM EST 5 mg pantoprazole (PROTONIX) EC tablet 40 mg 40 mg, Oral, Daily6, First dose on 07/07/25 at 0630, Do Not Crush Given 07/10/2025 8:32 AM EST 40 mg Given 07/09/2025 5:11 AM EST 40 mg Given 07/08/2025 8:48 AM EST 40 mg pantoprazole (PROTONIX) injection 40 mg 40 mg, Intravenous, Daily6, First dose on W[place] 07/03/25 at 0643, Dilute each 40 mg vial with 10 mL of Normal Saline Given 07/06/2025 6:31 AM EST 40 mg Given 07/05/2025 4:58 AM EDT 40 mg Given 07/04/2025 5:26 AM EDT 40 mg polyethylene glycol (MIRALAX) packet 17 g 17 g, Oral, Once, On W[place] 07/03/25 at 2219, For 1 dose Given 07/04/2025 1:16 AM EDT 17 g polyethylene glycol (MIRALAX) packet 17 g 17 g, Oral, 2 times daily, First dose on Mon07/04/25 at 1040 Given 07/04/2025 8:52 PM EDT 17 g Given 07/04/2025 10:38 AM EDT 17 g potassium chloride (KCl)/Sterile water 100 mL 10 mEq/100 mL IVPB 10 mEq 10 mEq, Intravenous, Administer over 60 Minutes, Every hour, First dose on Willa 07/03/25 at 0710, For 4 doses, PERIPHERAL: potassium chloride 40 mEq IVPB replacement (10 mEq Q1h x 4) MAX INFUSION RATE VIA PERIPHERAL LINE IS 10 mEq/hr (100 mL/hr). New Bag 07/03/2025 10:31 AM EDT 10 mEq 100 mL/hr New Bag 07/03/2025 9:23 AM EDT 10 mEq 100 mL/hr New Bag 07/03/2025 8:07 AM EDT 10 mEq 100 mL/hr potassium chloride (KLOR-CON M20) CR tablet 20 mEq 20 mEq, Oral, Once, On 07/07/25 at 1100, For 1 dose, FOR PATIENTS UNABLE TO SWALLOW LARGE TABLETS, but can take liquids orally: Place tablet(s) in room temperature or warm water (@ 2-4 ounces) and allow to disintegrate for ~ 30 seconds. Then stir well and administer immediately before particles settle. NOTE: not all particles will go into solution. DO NOT CRUSH or CHEW; TABLET(S) MAY BE SPLIT Given 07/07/2025 1:07 PM EST 20 mEq potassium chloride (KLOR-CON M20) CR tablet 20 mEq 20 mEq, Oral, Once, On Mon07/09/25 at 1000, For 1 dose, FOR PATIENTS UNABLE TO SWALLOW LARGE TABLETS, but can take liquids orally: Place tablet(s) in room temperature or warm water (@ 2-4 ounces) and allow to disintegrate for ~ 30 seconds. Then stir well and administer immediately before particles settle. NOTE: not all particles will go into solution. DO NOT CRUSH or CHEW; TABLET(S) MAY BE SPLIT Given 07/09/2025 9:24 AM EST 20 mEq potassium chloride (KLOR-CON M20) CR tablet 40 mEq 40 mEq, Oral, Once, On Mon07/07/25 at 0700, For 1 dose, FOR PATIENTS UNABLE TO SWALLOW LARGE TABLETS, but can take liquids orally: Place tablet(s) in room temperature or warm water (@ 2-4 ounces) and allow to disintegrate for ~ 30 seconds. Then stir well and administer immediately before particles settle. NOTE: not all particles will go into solution. DO NOT CRUSH or CHEW; TABLET(S) MAY BE SPLIT Given 07/07/2025 10:13 AM EST 40 mEq potassium chloride (KLOR-CON M20) CR tablet 40 mEq 40 mEq, Oral, Once, On Mon07/09/25 at 0600, For 1 dose, FOR PATIENTS UNABLE TO SWALLOW LARGE TABLETS, but can take liquids orally: Place tablet(s) in room temperature or warm water (@ 2-4 ounces) and allow to disintegrate for ~ 30 seconds. Then stir well and administer immediately before particles settle. NOTE: not all particles will go into solution. DO NOT CRUSH or CHEW; TABLET(S) MAY BE SPLIT Given 07/09/2025 7:53 AM EST 40 mEq potassium phosphate 15 mmol in sodium chloride 0.9 % 250 mL infusion 15 mmol, Intravenous, Administer over 6 Hours, at 41.7 mL/hr, Once, On Willa 07/03/25 at 2346, For 1 dose, HIGH ALERT Peripheral Line Max Rate = 5 mMol/hr; Central Line Max Rate = 7.5 mMol/hr New Bag 07/04/2025 1:17 AM EDT 15 mmol 41.7 mL/hr QUEtiapine (SEROQUEL) tablet 25 mg 25 mg, Oral, At Bedtime (2100), First dose on [place] 07/10/25 at 0300 Given 07/10/2025 2:30 AM EST 25 mg S.M.O.G. enema (RECTAL USE ONLY) 400 mL, Rectal, Once, On Mon07/07/25 at 1730, For 1 dose, FOR RECTAL USE ONLY; NOT FOR ORAL USE Given 07/07/2025 6:43 PM EST 400 mLs senna-docusate (SENNA-S) 8.6-50 mg per tablet 1 tablet 1 tablet, Oral, 2 times daily, First dose on Mon07/04/25 at 1010 Given 07/04/2025 8:54 PM EDT 1 tablet Given 07/04/2025 10:37 AM EDT 1 tablet senna-docusate (SENNA-S) 8.6-50 mg per tablet 1 tablet 1 tablet, Oral, 2 times daily, First dose (after last modification) on Mon07/06/25 at 2100 Given 07/09/2025 9:21 PM EST 1 tablet Given 07/09/2025 9:24 AM EST 1 tablet Given 07/08/2025 9:46 PM EST 1 tablet senna-docusate (SENNA-S) 8.6-50 mg per tablet 1 tablet 1 tablet, Oral, At Bedtime (2100), First dose (after last modification) on Mon07/10/25 at 2100 simethicone (MYLICON) chewable tablet 80 mg 80 mg, Oral, 30 min after meals and bedtime, First dose on Mon07/06/25 at 1330 Given 07/09/2025 6:08 PM EST 80 mg Given 07/09/2025 1:22 PM EST 80 mg Given 07/09/2025 9:24 AM EST 80 mg sod phos di, mono-K phos mono (K-PHOS NEUTRAL) 250 mg tablet Tab 500 mg 500 mg, Oral, Every 4 hours, First dose on Mon07/07/25 at 0730, For 2 doses, Phosphorus Level 1.8 - 2.9: Weight 70 - 100 k tablets every 4 hours x 2 doses. Total 4 tablets (Phosphorus 32 mmol, Potassium 4.4 mEq). May give orally or per feeding tube. Each 250 mg tablet of KPhos Neutral contains: Phosphorus = 8 mmol; Sodium = 13 mEq; Potassium = 1.1 mEq Given 07/07/2025 1:07 PM EST 500 mg Given 07/07/2025 10:13 AM EST 500 mg sodium chloride 0.9 % IV infusion 100 mL/hr, Intravenous, Continuous, Starting on [place] 07/03/25 at 0642 Rate/Dose Verify 07/03/2025 12:45 PM EDT 100 mL/hr 100 mL/hr New Bag 07/03/2025 7:01 AM EDT 100 mL/hr 100 mL/hr traZODone (DESYREL) half tablet 25 mg 25 mg, Oral, At Bedtime (2099), First dose on 07/07/25 at 0130 Given 07/07/2025 10:20 PM EST 25 mg Given 07/07/2025 3:50 AM EST 25 mg documented in this encounter Active and Recently Administered Medications Times are shown in EST. Scheduled Medication Order 07/08/2025 07/09/2025 07/10/2025 apixaban (ELIQUIS) tablet 5 mg 5 mg, Oral, 2 times daily, First dose on 07/06/25 at 0900, For patients who are unable to swallow whole tablets, 5 mg and 2.5 mg ELIQUIS tablets may be crushed and suspended in water, 5% dextrose in water (D5W), or apple juice, or mixed with applesauce and promptly administered orally. Alternatively, ELIQUIS tablets may be crushed and suspended in 60 mL of water or D5W and promptly delivered through a nasogastric tube. Crushed ELIQUIS tablets are stable in water, D5W, apple juice, and applesauce for up to 4 hours. Restricted to FDA labeled indications. 0900 (Not Given - Provider: Thuy Byers RN - Reason: Contraindicated)2145 (Given - Provider: Jacquelyn Smith RN) 923 (Given - Provider: Sridevi Fuchs RN)2120 (Given - Provider: Jacquelyn Smith RN) 831 (Given - Provider: Sridevi Fuchs RN) atorvastatin (LIPITOR) tablet 10 mg 10 mg, Oral, At Bedtime (2099), First dose on 07/06/25 at 2100, Therapeutic Interchange: pravastatin (PRAVACHOL) 40 mg daily = atorvastatin (LIPITOR) 10 mg dose at bedtime 2145 (Given - Provider: Jacquelyn Smith RN) 2120 (Given - Provider: Jacquelyn Smith RN) gabapentin (NEURONTIN) capsule 300 mg 300 mg, Oral, 3 times daily, First dose on Mon07/03/25 at 0900 0848 (Given - Provider: Thuy Byers RN)1307 (Given - Provider: Thuy Byers RN)2146 (Given - Provider: Jacquelyn Smith RN) 0924 (Given - Provider: Sridevi Fuchs RN)1322 (Given - Provider: Sridevi Fuchs RN)2121 (Given - Provider: Jacquelyn Smith RN) 0832 (Given - Provider: Sridevi Fuchs RN)1434 (Given - Provider: Sridevi Fuchs RN) pantoprazole (PROTONIX) EC tablet 40 mg 40 mg, Oral, Daily6, First dose on Mon07/07/25 at 0630, Do Not Crush 0848 (Given - Provider: Thuy Byers RN) 0511 (Given - Provider: Jacquelyn Smith RN) 0832 (Given - Provider: Sridevi Fuchs RN) potassium chloride (KLOR-CON M20) CR tablet 20 mEq (COMPLETED)(Linked Group 1) 20 mEq, Oral, Once, On Mon07/09/25 at 1000, For 1 dose, FOR PATIENTS UNABLE TO SWALLOW LARGE TABLETS, but can take liquids orally: Place tablet(s) in room temperature or warm water (@ 2-4 ounces) and allow to disintegrate for ~ 30 seconds. Then stir well and administer immediately before particles settle. NOTE: not all particles will go into solution. DO NOT CRUSH or CHEW; TABLET(S) MAY BE SPLIT 0924 (Given - Provider: Sridevi Fuchs RN) potassium chloride (KLOR-CON M20) CR tablet 40 mEq (COMPLETED)(Linked Group 1) 40 mEq, Oral, Once, On Mon07/09/25 at 0600, For 1 dose, FOR PATIENTS UNABLE TO SWALLOW LARGE TABLETS, but can take liquids orally: Place tablet(s) in room temperature or warm water (@ 2-4 ounces) and allow to disintegrate for ~ 30 seconds. Then stir well and administer immediately before particles settle. NOTE: not all particles will go into solution. DO NOT CRUSH or CHEW; TABLET(S) MAY BE SPLIT 0753 (Given - Provider: Jacquelyn Smith RN) QUEtiapine (SEROQUEL) tablet 25 mg 25 mg, Oral, At Bedtime (2100), First dose on [place] 07/10/25 at 0300 0230 (Given - Provider: Jacquelyn Smith RN) senna-docusate (SENNA-S) 8.6-50 mg per tablet 1 tablet (CANCELED) 1 tablet, Oral, 2 times daily, First dose (after last modification) on 07/06/25 at 2100 0848 (Given - Provider: Thuy Byers RN)2146 (Given - Provider: Jacquelyn Smith RN) 0924 (Given - Provider: Sridevi Fuchs RN)2121 (Given - Provider: Jacquelyn Smith, ANN) 0833 (Not Given - Provider: Sridevi Fuchs RN - Reason: Patient/family refused) senna-docusate (SENNA-S) 8.6-50 mg per tablet 1 tablet 1 tablet, Oral, At Bedtime (2100), First dose (after last modification) on [place] 07/10/25 at 2100 simethicone (MYLICON) chewable tablet 80 mg (CANCELED) 80 mg, Oral, 30 min after meals and bedtime, First dose on 07/06/25 at 1330 0848 (Given - Provider: Thuy Byers RN)1230 (Not Given - Provider: Thuy Byers RN - Reason: NPO)1857 (Given - Provider: Thuy Byesr RN)2146 (Given - Provider: Jacquelyn Smith RN) 0924 (Given - Provider: Sridevi Fuchs RN)1322 (Given - Provider: Sridevi Fuchs RN)1808 (Given - Provider: Sridevi Fuchs RN) PRN Medication Order 07/08/2025 07/09/2025 07/10/2025 acetaminophen (TYLENOL) tablet 975 mg 975 mg, Oral, Every 8 hours PRN, mild pain (NRS 1-3); no comparable CPOT score, moderate pain (NRS 4-6) or if patient is non-communicative (CPOT 3-5), Starting on 07/06/25 at 1904 1307 (Given - Provider: Thuy Byers RN) 0000 (Given - Provider: Jacquelyn Smith RN)1808 (Given - Provider: Sridevi Fuchs RN) aluminum & magnesium hydroxide-simethicone (MYLANTA) suspension 15 mL 15 mL, Oral, Every 6 hours PRN, Heartburn, Indigestion, Starting on Mon07/09/25 at 2043 2134 (Given - Provider: Jacquelyn Smith RN) calcium carbonate (TUMS) chewable tablet 500 mg 500 mg, Oral, 3 times daily PRN, Heartburn, Indigestion, Starting on Mon07/04/25 at 1858 0107 (Given - Provider: Jacquelyn Smith RN)2146 (Given - Provider: Jacquelyn Smith RN)235 (Given - Provider: Jacquelyn Smith RN) 180 (Given - Provider: Sridevi Fuchs RN) diphenhydrAMINE (BENADRYL) capsule 25 mg 25 mg, Oral, Nightly PRN, Agitation, Starting on Mon07/07/25 at 2339 2146 (Given - Provider: Jacquelyn Smith RN) 212 (Given - Provider: Jacquelyn Smith RN) hydrALAZINE (APRESOLINE) 20 mg/mL injection 10 mg 10 mg, Intravenous, Every 6 hours PRN, For SBP greater than : , 160, hold for HR > 100, Starting on [place] 07/03/25 at 0644 0107 (Given - Provider: Jacquelyn Smith RN) 2342 (Given - Provider: Jacquelyn Smith RN) methocarbamoL (ROBAXIN) tablet 500 mg 500 mg, Oral, 4 times daily PRN, Muscle spasms, Starting on 07/05/25 at 0725 0310 (Given - Provider: Jacquelyn Smith RN)2356 (Given - Provider: Jacquelyn Smith RN) 180 (Given - Provider: Sridevi Fuchs RN) 014 (Given - Provider: Jacquelyn Smith RN) ondansetron (ZOFRAN) tablet 4 mg 4 mg, Oral, Every 6 hours PRN, Nausea and/or Vomiting, Starting on 07/07/25 at 1414 0107 (Given - Provider: Jacquelyn Smith RN) Linked Groups Order Group 1: potassium chloride (KLOR-CON M20) CR tablet 40 mEq (COMPLETED)Jump to med 40 mEq, Oral, Once, On Mon07/09/25 at 0600, For 1 dose, FOR PATIENTS UNABLE TO SWALLOW LARGE TABLETS, but can take liquids orally: Place tablet(s) in room temperature or warm water (@ 2-4 ounces) and allow to disintegrate for ~ 30 seconds. Then stir well and administer immediately before particles settle. NOTE: not all particles will go into solution. DO NOT CRUSH or CHEW; TABLET(S) MAY BE SPLIT Followed by potassium chloride (KLOR-CON M20) CR tablet 20 mEq (COMPLETED)Jump to med 20 mEq, Oral, Once, On Mon07/09/25 at 1000, For 1 dose, FOR PATIENTS UNABLE TO SWALLOW LARGE TABLETS, but can take liquids orally: Place tablet(s) in room temperature or warm water (@ 2-4 ounces) and allow to disintegrate for ~ 30 seconds. Then stir well and administer immediately before particles settle. NOTE: not all particles will go into solution. DO NOT CRUSH or CHEW; TABLET(S) MAY BE SPLIT documented in this encounter Care Teams Assistant Professor Relationship Specialty Start Date End Date Placido Mercado MD [address] [place] [id number] PCP - General 07/03/25 documented as of this encounter
--- OUTSIDE RECORDS SUMMARY | 2025-07-08 11:06 | XMS_ITS | Encounter Summary ---
Author Organization [facility] Address [address] [place] [address] Care Team Providers Care Business Administrator Name Role Phone Placido Mercado MD Primary Care Provider [phone] Source Comments This information has been disclosed [...] release of HIV test results or diagnoses. [id number] Reason for Visit * Reason Comments Abdominal Pain * Auth/Cert (Routine) Specialty Diagnoses / Procedures Referred By Ryan garcia Referred To Contact Emergency Medicine Diagnoses [employer] [facility] Emergency Department [address] [place] [address] Phone: tel: fax: Referral ID Status Reason Start Date Expiration Date Visits Re quested Visits Authorized [id number] 1 1 Encounter Details Date Type Department Care Team (Late st Contact Info) Description 07/08/2025 11:06 AM EST - 07/08/2025 11:37 AM EST Surgery [facility] ENDOSCOPY [address] [place] [address] Vik Le MD [address] [place] [address] SIGMOID FLEXIBLE Surgery Details Date/Time Status Location OR Service Patient Class Case Class Case Type Trauma Case? 07/08/2025 11:06 AM Posted ENDOSCOPY E2 Gastroenterology Inpatient Sigmoidoscopy Panel 1 Procedure LRB Anes Op Region Wound Class Comments SIGMOID FLEXIBLE N/A MAC (Monitor An esthesia Care) Clean Contaminated Surgeon Surgeon Role Service Panel Vik Le MD Primary Gastroenterology 1 documented in this encounter Social History Tobacco Use Types Packs/Day Years Used Date Smoking Tobacco: Never Smokeless Tobacco: Never Tobacco Cessation:Counseling Given: Not Answered Alcohol Use Standard Drinks/Week Comments Not Currently 0 (1 standard drink = 0.6 oz pur e alcohol) [facility] Utilities Answer Date Recorded In [...] any time in the past 12 m [facility], were you homeless or living in a longterm (including now)? No 07/05/2025 Comments No Sex and Gender Information Value Date Recorded Sex Assigned at Not on file Legal Sex Female 10:34 PM EDT Gender Identity Not on file Sexual Orientation Not on file documented as of this encounter Last Filed Vital Signs Vital Sign Reading Time Taken Comments Blood Pressure 123/82 07/08/2025 8:57 AM EST Pulse 96 07/08/2025 8:57 AM EST Temperature 36.5 C (97.7 F) 07/08/2025 8:57 AM EST Respiratory Rate 17 07/08/2025 8:57 AM EST Oxygen Saturation 96% 07/08/2025 8:57 AM EST Inhaled Oxygen Concentration 96% 07/08/2025 8 :57 AM EST Weight 77.1 kg (170 lb) 07/05/2025 4:45 AM EDT Height 160 cm (5' 3 ) 07/05/2025 4:45 AM EDT Body Mass Index 30.11 07/08/2025 4:18 PM EST documented in this encounter Functional Status * AUDIT-C Score Answer Date of Assessment Author 0 07/05/2025 5:00 AM EDT Chad Frey RN * Question Answer Date of Assessment Author Q1: How often do you have a drink containing alcohol? Never 07/05/2025 5:00 AM EDT Debbie Frey R N Q2: How many drinks containing alcohol do you have on a typical day when you are drinking? Patient does not drink 07/05/2025 5:00 AM EDT Debbie Frey, ANN Q3: How often do you have six or more drinks on one occasion? Never 07/05/2025 5:00 AM EDT Debbie Frey R N documented as of this encounter Discharge Summaries * Kaylan Kiko, ASSEMBLY LINE MACHINE OPERATOR - 07/10/2025 3:50 PM EST Health Care Management Discharge Summary Patient name: Gladys Feliciano [...] Gladys Feliciano was referred and accepted at [facility] Name: [facility] Number: Report: [phone]; . The patient will be transported by family per patient request. [facility] team and [facility] confirm they are okay with family transport. [...] Name and Relationship Notified at Discharge: Larry Yougn Family Contact Number: [phone] Plan reviewed with MD and other members of the health care team: Yes Care Plan Completed: Yes No further CM/SW needs. This plan has been reviewed with the multi-disciplinary team. Treatment Preferences Post-Discharge Goals Patient's Post-Discharge goals: Experience effective transition from hospital to SNF Post Acute Care Provider Information: [facility] Name: [facility] Number: Report: [phone]; Community Services at Discharge Community Services at Home post discharge: Not Applicable [facility], [facility] Inpatient Validation Architect Care Management Acute Care Surgery, Surgical Oncology, Colorectal Surgery, Thoracic, Vascular, Gynecology, Gynecology/Oncology, Breast, and Pulmonology Can be reached at [phone] or over Thing5 Secure Chat * Roseline Daigle CNP - 07/10/2025 3:15 PM EST [facility] Inpatient Surgery Discharge Summary Patient ID: Gladys Feliciano 1945 CSN:[id number] Admit Service: Acute Care Surgery Admit date: [...] Case IDs Date Procedure Surgeon Location Status [id number] 07/08/25 SIGMOID FLEXIBLE Vik Le MD ENDOSCOPY Comp Consultants: Gastroenterology Occupational Therapy Physical Therapy Brief Hospital Course: Gladys Feliciano is a 79 y.o. female with past medical history significant for HTN, HLD, GERD/hiatal hernia, chronic back pain, and a provoked DVT who presented on 07/03 with abdominal pain and distention with CT findings concerning for large bowel obstruction vs. Hyde Park's Syndrome. Ogilvies vs Splenic Flexure Narrowing GI [...] family and patient prior to dc. Disposition: STSNF Patient Instructions: Allergies: Allergies[2] Medication List TAKE [...] ask for the ACUTE CARE SURGERY RESIDENT button tufter. Please call or return to the emergency room if you experience any of the following: Worsening pain, nausea, or vomiting not relieved by medications Temperature greater than 101 F. Fever/chills Chest pain, shortness of breath, persistent dizziness, swelling in one or both legs Follow-up: No future appointments. [facility] at [facility] [address] [address] Follow up Call as needed for Acute Care Surgery Clinic follow up appointment. Pl[place]ido [place] [address] Follow up SNF to call PCP for an appointment upon discharge. Medicine Specialties-Gastroenterology [facility] Medicine Specialties [address] [place] [address] Phone: #[phone] Fax: #[phone] Follow up A referral has been sent to [facility] for further follow up to discuss a repeat non- emergent colonoscopy for polypectomy. You will be contacted by the GI offie to schedule follow up once the referral hasbeen reviewed. If you do not hear from them within a week, please call #[phone] to schedule. Recommend follow-up with PCP within [...] ask for the ACUTE CARE SURGERY RESIDENT button tufter. Please call or return to the emergency [...] sent through Care Everywhere. * Apixaban Tablets (Uzbek) documented in this encounter Medications at Time [...] of this encounter Progress Notes * Alexa Guzmán, PT - 07/10/2025 11:20 AM EST Physical Therapy Reason Patient Not Seen Name: Gladys Feliciano : 1945 Attending Physician: Shannon Campa MD Admission Diagnosis: SBO (small bowel obstruction) ([facility]) [K56.609] Date: 07/10/2025 Precautions: Precautions: NWB RUE [...] MD Admission Diagnosis: SBO (small bowel obstruction) ([facility]) [K56.609] Date: 07/10/2025 Room: [facility] Reviewed Pertinent hospital course: Yes Hospital Course PT/OT: 79 y/o female from OSH p/w concern for large bowel obstruction vs Starr's syndrome. 07/04: KUB suggestive of ileus. 07/08: [...] and robert with min A using L HORIZONTAL BORING MILL OPERATOR and increased time to complete to increased [...] ADLs with pain less than 4/10: . care home goal to be met in: 2 weeks: [...] on file for this patient. * Darya Mancini RD - 07/10/2025 8:55 AM EST [facility] Medical Nutrition Therapy Malnutrition Status Pt meets [...] Oral TID pantoprazole 40 mg Oral DAILY 0600 QUEtiapine 25 mg Oral Nightly (2099) senna-docusate [...] access to food: none noted Food Allergies/Intolerances: NKFA Cultural Requests: None 79 y.o. Female Ht Readings from Last 1 Encounters: 07/08/25 5' 3 (1.6 m) Wt Readings from Last 1 Encounters: 07/08/25 170 lb (77.1 kg) Body mass index is 30.11 kg/m??. BMI Category: Class 1 (30.00 - 34.99) BMI [facility] Body Weight: 115 lb (52.27 kg) +/- 10% Wt Readings from Last 25 Encounters: 07/08/25 170 lb (77.1 kg) Weight Change: 10# decrease in 6 jdlzcp-zjoa-celqlzvj, not significant Estimated Nutrition Needs: Needs based On: 77.1 kg CBW Kcals/day: 4175-6448 (MSJx1.2x1.3) Protein g/day: 77 (1 g/kg) Carbohydrate [...] labs. Darya Mancini RD, LD Clinical Dietitian [facility] Available for questions via secure EPIC chat [1] There is no problem list [...] SpO2: 97% Date 07/09/25 07 - 07/10/2559 07/10/25 0700 - 07/11/25 0659 Shift 2991-4362 8004-7317 9661-3913 24 Hour Total 3102-8223 4280-5133 8067-1478 24 Hour Total INTAKE P.O. 240 240 [...] Ext: Warm and well perfused Recent Labs 07/08/2532107/09/2534707/10/25 031 WBC 5.2 5.0 7.0 HGB 9.8* 8.1* 9.0* HCT 30.5* 25.1* 27.8* MCV 75.4* 76.6* 76.2* PLT 513* 412* 439* Recent Labs 07/08/2532107/09/25 0348 07/10/25 0314 NA 137 135 137 K 3.8 3.5 [...] findings concerning for large bowel obstruction vs. Hyde Park's Syndrome. Ogilvies vs Splenic Flexure Narrowing - [...] MD Admission Diagnosis: SBO (small bowel obstruction) ([facility]) [K56.609] Date: 07/09/2025 Room: [facility]/90 Reviewed Pertinent hospital course: Yes Hospital Course PT/OT: 79 y/o female from OSH p/w concern for large bowel obstruction vs Starr's syndrome. 07/04: KUB suggestive of ileus. 07/08: [...] benefit from inpatient physical therapy at a longterm facility following discharge. At this time the [...] Long-term goal to be met by: 07/18/25 Tomographic Tech Goal : Pt will participate in stair [...] Daigle CNP - 07/09/2025 8:35 AM EST [facility] ACUTE CARE SURGERY PROGRESS NOTE Admit Date: [...] 98.1 ??F (36.7 ??C) SpO2: 94% Date 07/08/25 07 - 07/09/25 0659 07/09/25 07 - 07/10/25 0659 Shift 9257-6373 4996-9932 3663-2293 24 Hour Total 1985-3657 2309-9343 7263-2638 24 Hour Total INTAKE P.O. 340 340 [...] 76.6* PLT 411* 513* 412* Recent Labs 07/07/2534307/08/2532107/09/25347 NA 136 137 135 K 3.7 3.8 [...] findings concerning for large bowel obstruction vs. Hyde Park's Syndrome. Ogilvies vs Splenic Flexure Narrowing - [...] Care Surgery * Alexa Guzmán, PT - 07/08/2025 3:37 PM EST Physical Therapy Treatment Name: Gladys Taras : 1945 Attending Physician: Shannon Campa MD Admission Diagnosis: SBO (small bowel obstruction) (CMS-HCC) [K56.609] Date: 07/08/2025 Room: [facility] Reviewed Pertinent hospital course: Yes Hospital Course [...] benefit from inpatient physical therapy at a longterm facility following discharge. At this time the [...] Long-term goal to be met by: 07/18/25 Care Home Goal : Pt will participate in stair [...] 0659 07/08/25 0700 - 07/09/25 0659 Shift 8033-9844 3558-8269 5906-7266 24 Hour Total 4727-7735 2060-4024 7979-6575 24 Hour Total INTAKE P.O. 240 200 [...] Labs 07/06/25 0302 07/07/25 0344 07/08/25 0322 NA 137 136 137 K 3.9 3.7 [...] Home gabapentin resumed Please page [facility] rafa ([phone]) with any questions/concerns. Kaylan Aguilar PA-C Division [...] Mercado MD PCP Confirmed: yes Phone: # [phone] Fax: # HPI: 79 y.o. female with [...] hospital problems. * Large bowel obstruction vs. Hyde Park's Syndrome. *Transfer from OSH Procedures performed: 07/08 [...] Daily CBC Discharge Planning: Insurance: Insurance Information HU[employer] MANAGED MEDICARE/HUMANA GOLD PLUS MEDICARE Phone: -- Subscriber: Gladys Feliciano Subscriber#: [id number] Group#: [id number] Precert#: -- Authorization#: [id number] Effective Date: -- Disposition: Anticipate possible discharge tomorrow vs . PT/OT with new recs for SNF. SW updated and following along. *From [facility], ~1.5 hours away note 07/03- DME use including rolling walker, rollator, and shower chair. Patient has history ofskilled nursing facility admissions and/or inpatient rehabilitation facility admissions. Went to [facility] in the past. Patient has history of home health care services. Reports she is active with [facility] for PT/OT/SN. Referrals sent to: [facility] and [facility] Date: 07/05 Accepted by: [facility] Date: 07/07, requesting updated PT/OT notes Insurance [...] instructions added/reviewed/updated to/in discharge navigator. * Graciela Freeman, OT - 07/07/2025 2:29 PM EST Occupational Therapy Treatment Name: Gladys Feliciano : 1945 Attending Physician: Shannon aCmpa MD Admission Diagnosis: SBO (small bowel obstruction) ([facility]) [K56.609] Date: 07/07/2025 Room: [facility] Reviewed Pertinent hospital course: Yes Hospital Course [...] MOD A: sit<>stand from recliner, cues for qsdd-gl-eqeva method (light assist for sit>stand), rollator Functional [...] ADLs with pain less than 4/10: . 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 female with [...] as outpatient. Discharge Planning: Insurance: Insurance Information HUMANA MANAGED MEDICARE/HUMANA GOLD PLUS MEDICARE Phone: -- Subscriber: Gladys Feliciano Subscriber#: [id number] Group#: [id number] Precert#: -- Authorization#: [id number] Effective Date: -- Disposition: Anticipate possible discharge tomorrow vs Monday. PT/OT with new recs for SNF. SW updated and following along. *From [facility], ~1.5 hours away note 07/03- DME use including rolling walker, rollator, and shower chair. Patient has history ofskilled nursing facility admissions and/or inpatient rehabilitation facility admissions. Went to [facility] in the past. Patient has history of home health care services. Reports she is active with [facility] for PT/OT/SN. Referrals sent to: [facility] and [facility] Date: 07/05 Accepted by: [facility] Date: 07/07, requesting updated PT/OT notes Insurance [...] Oral BID atorvastatin 10 mg Oral Nightly (2100) gabapentin 300 mg Oral TID magnesium sulfate 4 g Intravenous Once pantoprazole 40 mg Oral DAILY 0600 potassium chloride 20 mEq Oral Once senna-docusate 1 tablet Oral BID simethicone 80 mg Oral PC/HS sod phos di, mono-K phos mono 500 mg Oral Q4H traZODone 25 mg Oral Nightly (2100) Continuous Infusions: PRN Meds: acetaminophen, calcium carbonate, [...] 1-2 days pending GI recs today Roseline Daigle CNP Department of Surgery Division [...] 72 hours. Invalid input(s): GLU Recent Labs 07/04/25 0454 07/05/25 0938 07/06/25 0302 ALBUMIN 3.5 3.6 3.5 No results for input(s): INR , PROTIME in the last 72 hours. Current Medications: Scheduled Meds: atorvastatin 10 mg Oral Nightly (2100) bisacodyL 10 mg Rectal Once gabapentin 300 [...] findings concerning for large bowel obstruction vs. Hyde Park's Syndrome. Colonic Dysmotility - GI following - [...] Surgeon Section of General Surgery [facility] * Sola Garcia, OT - 07/05/2025 3:47 PM EDT Occupational Therapy Initial Assessment and Treatment Name: Gladys Feliciano : 1945 Attending Physician: Shannon Campa MD Admission Diagnosis: SBO (small bowel obstruction) ([facility]) [K56.609] Date: 07/05/2025 Room: [facility]/90 Reviewed Pertinent hospital course: Yes Hospital Course PT/OT: 79 y/o female from OSH p/w concern for large bowel obstruction vs Hyde Park's syndrome. 07/04: KUB suggestive of ileus. Relevant [...] room to/from bathroom w rollator (one-handed) vs HORIZONTAL BORING MILL OPERATOR x1) Balance Sitting - Static: Independent Sitting-Dynamic: Stand by assistance Standing-Static: Contact Guard Assistance Standing-Dynamic: Minimal Assistance (w HORIZONTAL BORING MILL OPERATOR x1) Gait belt used: Yes ADL Grooming: [...] ADLs with pain less than 4/10: . care home goal to be met in: 2 weeks: [...] bowel obstruction) (CMS-HCC) [K56.609] Date: 07/05/2025 Room: [address] [place] [address] Reviewed Pertinent hospital course: Yes Hospital Course PT/OT: 79 y/o female from OSH p/w concern for large bowel obstruction vs Hyde Park's syndrome. 07/04: KUB suggestive of ileus. Relevant [...] only, requires assist for rollator management. 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 Hyde Park's Syndrome - GI following - Advance to Regular diet - Miralax/Senna BID; Suppository today - Minimize narcotic use HTN HLD - hold statin - prns for htn GERD Hiatal Hernia - IV PPI Provoked DVT (after spinal surgery) - Will discuss restarting Eliquis Chronic Pain - MMPR - minimize narcotics as able Mandeep Urban MD Surgery Resident 07/05/2025 Cosigned by Tan [...] care discussed with the following other services: AMY Ward MD General Surgeon Section of General Surgery [facility] * Iliana Patterson RN - 07/04/2025 9:30 AM EDT Acute Care Surgery Nurse Clinician Daily Progress Note Admission Date: 07/03/2025 : 1945 Age: 79 y.o. PCP: Placido Mercado MD PCP Confirmed: yes Phone: # [phone] Fax: # HPI: 79 y.o. female with [...] MEDICARE Phone: -- Subscriber: Gladys Feliciano Subscriber#: [id number] Group#: [id number] Precert#: -- Authorization#: [id number] Effective Date: -- Disposition: Anticipate possible discharge weekend, home with no needs. SW updated and following along. *From [facility], ~1.5 hours away note 07/03- DME use including rolling walker, rollator, and shower chair. Patient has history ofskilled nursing facility admissions and/or inpatient rehabilitation facility admissions. Went to [facility] in the past. Patient has history of home health care services. Reports she is active with [facility] for PT/OT/SN. Referrals sent to: [...] 0659 07/04/25 0700 - 07/05/25 0659 Shift 1211-8868 2581-4993 7541-8498 24 Hour Total 8641-7497 4537-1437 3227-7641 24 Hour Total INTAKE I.V. 491.1 491.1 [...] Warm and well perfused Labs: Recent Labs 07/03/2523407/04/254 WBC 7.1 7.0 HGB 8.8* 8.3* HCT 26.6* 25.7* PLT 486* 426* Recent Labs 07/03/2523407/03/25 0710 07/03/25221707/04/25453 NA 131* -- 136 133 K 3.4* [...] 72 hours. Invalid input(s): GLU Recent Labs 07/03/25221707/04/25 0454 ALBUMIN 3.6 3.5 No results for input(s): [...] findings concerning for large bowel obstruction vs. Hyde Park's Syndrome. Starr's Syndrome - GI following - Advance CLD [...] Surgeon Section of General Surgery [facility] * Maximus Figueroa MD - 07/04/2025 8:18 [...] HYDROmorphone, methocarbamoL, ondansetron Allergies: Allergies[1] Vitals: Vitals: 10/31/25 0726 BP: 151/83 Pulse: 83 Resp: 17 [...] 07/04/2025 No results found for: TSH , N9ADDCZ No results found for: IRON , TIBC [...] HPI who presents with acute colonic pseudoobstruction (Hyde Park's) with dilation of large bowel without evidence [...] MEDICARE Phone: -- Subscriber: Gladys Feliciano Subscriber#: [id number] Group#: [id number] Precert#: -- Authorization#: -- Effective Date: -- Disposition: Anticipate possible discharge weekend, home with no needs. SW updated and following along. *From [facility], ~1.5 hours away Referrals sent to: Date: [...] Roth MD - 07/08/2025 4:28 PM EST [facility] PRE-SEDATION ASSESSMENT, HISTORY & PHYSICAL Date: 07/08/2025 [...] MD PhD General Gastroenterology Attending [facility] * Veronika Mercado MD - 07/03/2025 4:00 AM EDT [facility] ED Note Date of Service: 07/03/2025 Reason for Visit: Abdominal Pain Patient History HPI Gladys Feliciano is a 79 y.o. female with a history of hypertension, recent right shoulder fracture who presents to the ED as a transfer from [facility] for bowel obstruction, accepted by [facility].She [...] for recommendationsregarding her bowel obstruction and the BASKETBALL ASSEMBLER is working getting her CT imaging pushed [...] time the patient has been admitted to [facility] for further evaluation and management of [...] EST SIGMOID FLEXIBLE Brief Op Note Gladys Moseleyall 07/08/2025 Pre-op Diagnosis: SBO (small bowel obstruction) (CMS-HCC) [K56.609] Post-op Diagnosis: Rectal ulcers, sigmoid colon polyp, no evidence of a mass Procedure(s): SIGMOID FLEXIBLE Surgeon(s): Vik Le MD Anesthesia: MAC (Monitor Anesthesia Care) Staff: Fellow: Juli Roth MD 2nd Endo Nurse: Erica Hopper RN Endoscopy Nurse: [...] MD PhD General Gastroenterology Attending [facility] * Vik Le MD - 07/08/2025 4:42 PM EST [id number] Procedure Date: 07/08/2025 4:42 PM Patient Name: Gladys Feliciano Date of : 1945 Admit Type: Inpatient Age: 79 Gender: Female Note Status: Finalized Attending MD: Vik Le , , [id number] Procedure: Flexible Sigmoidoscopy Indications: Abnormal CT of [...] the physician, the nurse, the anesthesiologist, the dope maintenance worker and the qc lab technician in the pre-procedure area in the procedure [...] on risk-benefit Procedure Code(s): --- Professional --- 14340, GC, Sigmoidoscopy, flexible; diagnostic, including collection of specimen(s) by brushing or washing, when performed (separate procedure) Diagnosis Code(s): --- Professional --- D12.5, Benign neoplasm of sigmoid colon R93.3, Abnormal findings on diagnostic imaging of other parts of digestive tract CPT copyright 2022 [employer]. All rights reserved. The codes documented in this report are preliminary and upon professional fee coder review may be revised to meet current compliance requirements. Attending Participation: I was present and participated during the entire procedure, including non-grajeda portions. Vik Le MD Vik Le, 07/08/2025 6:23:54 PM This report has been signed electronically.Vik Lloyd MD Juli Roth MD 07/08/2025 6:22:34 PM Total Procedure Duration Time 0 hours 9 minutes 36 seconds Scope In: 4:55:27 PM Scope Out: 5:05:[address] [place] [address], [address] documented in this encounter Consult Notes * [...] MD PCP: Placido Mercado MD Home Pharmacy: [id number] - [place], [place] - [address] [facility] [address] [place] [address] Issues related to obtaining medications: none Payor Information Medical Insurance Coverage: Payor: HUMANA MANAGED MEDICARE / Plan: HUMANA [employer] PLUS MEDICARE / Product Type: Medicare [facility] Care / Secondary Payor: n/a Functional Assessment [...] Was any abuse reported by patient?: No [place] Status & Connection to VA Services Status & Connection to VA Services Are you a ?: No Support Systems Emergency contact: Extended Emergency Contact Information Primary Emergency Contact: alexa feliciano Mobile Relation: Daughter Secondary Emergency Contact: larry young Mobile Relation: Daughter Support Systems Legal Status: N/A Primary Caregiver: Self Times of available support: Limited 27/03 hands on (add comment) Marital Status: Number of children and their names: Larry Louie Relative Search Completed: No Demographics Correct:: Yes Expected Discharge Disposition: Home with Home Care Next of Kin: Alexa Feliciano Next of Kin Relationship: Son Next of Kin Assessment Information Obtained From:: Patient Other Pertinent Information utilities estimator and drafter met with patient at bedside to complete [...] cleaning, cooking, and feeding. Patient has a head housekeeper who comes tocleans once a week. Patient [...] and shower chair. Patient has history of longterm facility admissions and/or inpatient rehabilitation facility admissions. Went to [facility] in [place] in the past. Patient has history of home health care s ervices. Reports she is active with [facility] for PT/OT/SN. Patient confirms their PCP is Thad Mercado. Patient advised that they will not need assistance with transportation upon discharge. Son can transport home. The patient is not medically ready for discharge at this time and is admitted. Inpatient case management will follow. Update: ANN SHEPHERD called [facility] ([phone]) for resumption of care. ANN SHEPHERD received call back from Birgit at [facility] at home. Birgit was unable to see if patient is active for [facility]. Birgit recommends calling back during normal business hours. Discharge Plan Met with patient to initiate discussion regarding discharge planning. Introduced self and role of case management/social work and provided contact information. Anticipated Discharge Plan: home with [facility] Anticipated Discharge Date: 07/05 Anticipated Transportation: [...] bowel. The patient was then transferred to [facility] for further management. Over the last several [...] 4:01 AM EDTAssociated Order(s): ED CONTACT PROVIDER [facility] General Surgery History and Physical/Consultation Note Patient: Gladys Feliciano CSN: [id number] Requesting Physician: Mehul Walsh MD History CC: [...] Data Invalid input(s): CO2ART , HBO2PE Lab 07/03/25 0235 WBC 7.1 HEMOGLOBIN 8.8* HEMATOCRIT 26.6* MEAN CORPUSCULAR VOLUME 76.6* PLATELETS 486* Lab 07/03/25 0235 SODIUM 131* POTASSIUM 3.4* CHLORIDE 97* CO2 25 BUN 21 CREATININE 0.88 GLUCOSE 110* CALCIUM 9.4 Invalid input(s): PROTEIN Invalid input(s): KEYTONESU Other labs: Recent Labs 07/03/25 0235 LACTATE 0.9 Imaging Studies No results found. [...] large bowel obstruction. 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 I have personally seen this [...] from ED. Alert + oriented x4. RA. 810 pain. Patient Right arm is barbara sling [...] and is agreeable. Receiving RN may call [phone] to consult ED RN with questions regarding [...] and is agreeable. Receiving RN may call [phone] to consult ED RN with questions regarding [...] scan with transport at this time * Angelita Ellison RN - 07/04/2025 2:43 PM EDT [...] 07/04/2025 7:20 AM EDT Report recd from radiation oncology therapist rn, * Xenia Frost RN - 07/04/2025 [...] RN - 07/03/2025 7:25 PM EDT Bed: [facility] Expected date: 07/03/25 Expected time: 7:17 [...] Epic chat received back from Nilo CARDENAS: to come down to remove rectal tube [...] 18G LAC. Fluids, zofran, morphine, versed,and MAG FLORAL ARRANGER. AAOX4. 4/10 pain. NKDA. Pt has previous R clavicle fx. Pt on 2L due to meds given FLORAL ARRANGER.FSBS FLORAL ARRANGER 146 per ems. * Fuentes Soriano RN - 07/03/2025 2:25 AM EDT Bed: A12U Expected date: Expected time: Means of arrival: Comments: EMS documented in this encounter Miscellaneous Notes * Continuation of Care - Roseline Daigle CNP - 07/10/2025 3:14 PM EST Images from the original note were not included. CONTINUITY OF CARE FORM Patient name: Gladys Feliciano Patient : 1945 Age: 79 y.o. 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 [facility] at [facility] Office [address] [facility] [address] [facility] [address] Follow up Call as needed for Acute Care Surgery Clinic follow up appointment. Placido Mercado MD [address] [place] [address] [facility] [address] Follow up SNF to call PCP for an appointment upon discharge. Medicine Specialties-Gastroenterology [facility] Medicine Specialties [address] [place] [address] Phone: #[phone] Fax: #[phone] Follow up A referral has been sent to GI for further follow up to discuss a repeat non- emergent colonoscopy for polypectomy. You will be contacted by the GI offie to schedule follow up once the referral hasbeen reviewed. If you do not hear from them within a week, please call #[phone] to schedule. SOCIAL WORK DOCUMENTATION Facility/Agency Name: Number to call report: Family Member Name and Relationship Notified at Discharge: Family Contact Number: Validation Architect or Shop Manager Name and Telephone Number: NURSE DISCHARGE ASSESSMENT [...] in place: Fall Risk Precautions In Place: [place] Restraints: Nurse and Credentials RN Handoff Completed by: on 07/10/2025 Physician Certification of Medically Necessary Transportation, Signature, and Credentials Transportation method: Stretcher - patient is deconditioned Reason for transport to another facility: residential facility requirements Patient requires: Continuous Medical Supervision En Route I certify that the patient's level of care at discharge is: Medicaid Level of Care form completed: PASQUINCY/HENS 7000 Completed: Less than 30 day convalescent [...] EST Brief Plan of Care: Dr. Cartagena district medical examiner with [facility] [phone] option 5. P2P was approved. SW updated. Roseline Daigle CNP Department of Surgery Division of Trauma, Surgical Critical Care, and Acute Care Surgery * Care Coordination - VINCENT Liriano - 07/10/2025 9:37 AM EST [facility] Case Management/Social Work Department Progress Note Patient Information Patient Name: Gladys Feliciano Hospital day: 7 Inpatient/Observation: Inpatient Level of Care: Med Surg Floor- 9CCP Admit date: 07/03/2025 Admission diagnosis: SBO (small bowel obstruction) ([facility]) [K56.609] PMH: has a past medical history of Hypercholesteremia and Hypertension. PCP: Placido Mercado MD Home Pharmacy: [id number] - [place] - [address] [facility] [address] [address] Medical Insurance Coverage: Payor: HUMANA MANAGED MEDICARE / Plan: HUMANA GOLD PLUS MEDICARE / Product Type: Medicare Mngd Care / Other Pertinent Information SW received report from ACS team and completed chart review. Per team, patient is medically ready for discharge at this time. Patient is anticipated to discharge to [facility] (Eduardo [phone]) in [place], [place]. Pre-cert started on 07/08. Per Eduardo, pre-cert remains pending at this time and he will follow up with any updates. ACS team okay if patient's son, Alexa ([phone]), drives patient to SNF at discharge. SW will continue to follow and assist in the discharge planning process. 12:33 PM UPDATE: SW received call from Eduardo stating a peer to peer is being requested with the deadline of 3:30 PM today (07/10). Provider will need to call [phone] option 5. Information providedto AUSTIN Daigle and ACS Nurse Clinician Donal. Discharge Plan Anticipated discharge plan: [facility] Anticipated discharge date: 07/10 vs. 07/11, pending pre-cert CM/SW will continue to follow and remain available for discharge planning needs. VINCENT LIRIANO, SUPERVISOR TWISTING DEPARTMENT Inpatient Validation Architect Care Management Acute Care Surgery, Surgical Oncology, Colorectal Surgery, Thoracic, Vascular, Gynecology, Gynecology/Oncology, Breast, and Pulmonology Can be reached at [phone] or over Thing5 Secure Chat * Care Coordination - VINCENT Liriano - 07/09/2025 10:56 AM EST [facility] Case Management/Social Work Department Progress Note Patient Information Patient Name: Gladys Feliciano Hospital day: 6 Inpatient/Observation: Inpatient Level of Care: Med Surg Floor- 9CCP Admit date: 07/03/2025 Admission diagnosis: SBO (small bowel obstruction) ([facility]) [K56.609] PMH: has a past medical history of Hypercholesteremia and Hypertension. PCP: Placido Mercado MD Home Pharmacy: [id number] - [place], [place] - [address] [facility] & [address] [place] [address] Medical Insurance Coverage: Payor: [employer] MEDICARE / Plan: HUMANA GOLD PLUS MEDICARE / Product Type: Medicare [place] Care / Other Pertinent Information SW received report from ACS team and completed chart review. Per team, patient is medically ready for discharge at this time. Patient is anticipated to discharge to [facility] (Eduardo [phone]) in [place], [place]. Pre-cert started yesterday (07/08) and remains pending at this time. SW met with patient and patient's son, Alexa ([phone]), at bedside to provide update. Patient inquiring if her son is able to drive her to [facility] and she can stop at home prior to gather her belongings. SW to confirm safety of this with ACS team and [facility] prior to discharge. SW educated on pre- cert process and that we are awaiting authorization. SW will continue to follow and assist in the discharge planning process. Discharge Plan Anticipated discharge plan: [facility] Anticipated discharge date: 07/09 vs. 07/10, pending pre-cert CM/SW will continue to follow and remain available for discharge planning needs. VINCENT LIRIANO, SUPERVISOR TWISTING DEPARTMENT Inpatient Validation Architect Care Management Acute Care Surgery, Surgical Oncology, Colorectal Surgery, Thoracic, Vascular, Gynecology, Gynecology/Oncology, Breast, and Pulmonology Can be reached at [phone] or over Thing5 Secure Chat * Plan of Care - [...] physician, Dr Le * Care Coordination - Kaylanjohann [place], ASSEMBLY LINE MACHINE OPERATOR - 07/08/2025 12:54 PM EST [facility] Case Management/Social Work Department Progress Note Patient Information Patient Name: Gladys Feliciano Hospital day: 5 Inpatient/Observation: Inpatient Level of Care: Med Surg Floor- 9CCP Admit date: 07/03/2025 Admission diagnosis: SBO (small bowel obstruction) (CMS-HCC) [K56.609] PMH: has a past medical history of Hypercholesteremia and Hypertension. PCP: Placido Mercado MD Home Pharmacy: [id number] - [place], [place] - [address] [facility] & [address] [place] [address] Medical Insurance Coverage: Payor: HUMANA MANAGED MEDICARE / Plan: HUMANA [employer] PLUS MEDICARE / Product Type: Medicare [facility] Care / Other Pertinent Information DEWAYNE received report from ACS team and completed chart review. Per team, patient is not medically ready for discharge at this time. Flex sig with GI today. Patient is anticipated to discharge to [facility] (Eduardo [phone]) in [place], [place] once medically stable. Pre-cert to be started once updated PT note is in. PT attempted to see patient earlier today, however patient was receiving enema so they will re-attempt this afternoon. DEWAYNE provided update to Eduardo and faxed updated OT and progress note to FAX: [phone]. DEWAYNE will continue to followand assist in the discharge planning process. 4:04 PM UPDATE: DEWAYNE faxed updated PT note. Discharge Plan Anticipated discharge plan: [facility] Anticipated discharge date: End of week, pending clinical course CM/SW will continue to follow and remain available for discharge planning needs. VINCENT LIRIANO, SUPERVISOR TWISTING DEPARTMENT Inpatient Validation Architect Care Management Acute Care Surgery, Surgical Oncology, Colorectal Surgery, Thoracic, Vascular, Gynecology, Gynecology/Oncology, Breast, and Pulmonology Can be reached at [phone] or over Thing5 Secure Chat * Plan of Care - [...] Patient will remain free of falls Goal: [place] Fall Precautions Outcome: Progressing Problem: High Fall [...] Patient will remain free of falls Goal: [place] Fall Precautions Outcome: Progressing Problem: Daily Care [...] - 07/07/2025 11:23 AM EST [facility] Case Management/Social Work Department Progress Note Patient Information Patient Name: Gladys Feliciano Hospital day: 4 Inpatient/Observation: Inpatient Level of Care: Med Surg Floor- 9CCP Admit date: 07/03/2025 Admission diagnosis: SBO (small bowel obstruction) ([facility]) [K56.609] PMH: has a past medical history of Hypercholesteremia and Hypertension. PCP: Placiod Mercado MD Home Pharmacy: [id number] - [place] - [address] AT [facility] & [address] [address] Medical Insurance Coverage: Payor: HUMANA MANAGED MEDICARE / Plan: HUMANA [employer] PLUS MEDICARE / Product Type: Medicare [facility] Care / Other Pertinent Information SW received report from ACS team and completed chart review. Per team, patient is not medically ready for discharge at this time. GI consulted and pending recs. Patient recommended for SNF and referrals sent to [facility] and [facility] by CORA Sigala on 07/05. SW contacted the [facility] (Cindi [phone]) to follow up on referral. Per Cindi, referral has not been reviewed however they will likely not have a bed available until next week. Cindi to review and follow up. SW contacted [facility] (Edu[facility] [phone]) to follow up onreferral. Per admissions liaison, they did not receive referral and requests it be resent. SW resent referral to FAX: [phone]. 12:49 PM UPDATE: SW received call from Eduardo at [facility] stating they are able to accept. They will need updated PT/OT notes to begin pre-cert. SW messaged therapy who will attempt to see patient later today. SW contacted patient's son, Alexa Feliciano ([phone]), to provide update. Alexa agreeable to [facility] and DEWAYNE educated on pre-cert process. SW will continue to follow and assist in the discharge planning process. Discharge Plan Anticipated discharge plan: SNF, pending acceptance Anticipated discharge date: Mid week, pending GI recs CM/DEWAYNE will continue to follow and remain available for discharge planning needs. VINCENT LIRIANO, [facility] Inpatient Validation Architect Care Management Acute Care Surgery, Surgical Oncology, Colorectal Surgery, Thoracic, Vascular, Gynecology, Gynecology/Oncology, Breast, and Pulmonology Can be reached at [phone] or over Thing5 Secure Chat * Plan of Care - Shari [...] Patient will remain free of falls Goal: [place] Fall Precautions Outcome: Progressing Problem: Daily Care [...] Patient will remain free of falls Goal: [place] Fall Precautions Outcome: Progressing Problem: Daily Care [...] outside imaging). 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 PCP: Placido Mercado MD Home Pharmacy: [facility][id number] - [place], [place] - [address] [facility] & [address] [place] [address] Medical Insurance Coverage: Payor: HUMANA [employer] MEDICARE / Plan: HUMANA GOLD PLUS MEDICARE [...] shared their top two choices are [facility] and [facility] ([place]). SW also able to send SNF list to patient son phone ([phone]) per request. Team made aware. Discharge Plan Anticipated discharge plan: SNF Anticipated discharge date: 07/07, estimated pending acceptance and pre cert CM/SW will continue to follow and remain available for discharge planning needs. VINCENT Rizvi, SUPERVISOR TWISTING DEPARTMENT Validation Architect/Soa Architect (Float) Can be reached by [employer] [phone] or MyRefers secure chat * Plan of Care - [...] Patient will remain free of falls Goal: [place] Fall Precautions Outcome: Progressing Problem: Daily Care [...] Patient will remain free of falls Goal: [place] Fall Precautions Outcome: Progressing Problem: Daily Care [...] - 07/04/2025 2:57 PM EDT [facility] Case Management/Social Work Department Progress Note Patient Information Patient Name: Gladys Feliciano Hospital day: 1 Inpatient/Observation: Inpatient Level of Care: Acute Care Surgery Team Admit date: 07/03/2025 Admission diagnosis: HIGH GRADE BOWEL OBSTRUCTION PMH: has a past medical history of Hypercholesteremia and Hypertension. PCP: Placido Mercado MD Home Pharmacy: [facility][id number] - [place], [place] - [address] [facility] & [address] [place] [address] Medical Insurance Coverage: Payor: [employer] MANAGED MEDICARE / Plan: HUMANA GOLD PLUS MEDICARE / Product Type: Medicare Mngd Care / Other Pertinent Information SW received update from medical team, completed chart review. Per team, pt is not medically ready for discharge. Per team, patient with potential bowel obstruction, distension of colon. X-rays pending at this time. Patient established with [facility] for home PT/OT/SN. Will need o rders faxed to [phone]. Discharge Plan Anticipated discharge plan: Home with resumption of HHC Anticipated discharge date: 07/05-07/06, estimated pending clinical course CM/SW will continue to follow and remain available for discharge planning needs. VINCENT Rizvi, SUPERVISOR TWISTING DEPARTMENT Validation Architect/Soa Architect (Float) Can be reached by [employer] [phone] or MyRefers secure chat * Care Coordination - Savannah Mejia - 07/04/2025 1:40 PM EDT RYLEE Nuñez was advised by CORA Sigala Patient is active with [facility]. RYLEE called [phone] and spoke with [facility] confirmed patient is active with them for Home PT/OT and longterm. When patient is readyto discharge send orders to fax [phone]. Savannah Mejia Soa Architect Information Technology Administrator Care Management Services [phone] documented in this encounter Plan of Treatment [...] 4:46 PM EST SBO (small bowel obstruction) ([facility]) FLEXIBLE SIGMOIDOSCOPY Routine 07/08/2025 4:42 PM EST [...] - 146 mmol/L 07/10/2025 4:25 AM EST [facility] Potassium 4.0 3.5 - 5.3 mmol/L 07/10/2025 4:25 AM EST [facility] Chloride 102 98 - 110 mmol/L 07/10/2025 4:25 AM EST [facility] CO2 23 21 - 33 mmol/L 07/10/2025 4:25 AM EST [facility] Comment:High lactate dehydro genase concentrations in patient samples may cause falsely increased bicarbonate results. If markedly elevated LDH is observed or suspected, please assess results in conjunction with patient`s clinical presentation. In cases of discrepant results, consider evaluating CO2 in with a blood gas order. Anion Gap 12 3 - 16 mmol/L 07/10/2025 4:25 AM EST [facility] BUN 20 7 - 25 mg/dL 07/10/2025 4:25 AM EST [facility] Creatinine 0.82 0.60 - 1.30 mg/dL 07/10/2025 4:25 AM [facility] Glucose 118(H) 70 - 100 mg/dL 07/10/2025 4:25 AM EST [facility] Calcium 10.3 8.6 - 10.3 mg/dL 07/10/2025 4:25 AM [facility] Phosphorus 2.1 2.1 - 4.5 mg/dL 07/10/2025 4:25 AM EST [facility] Albumin 4.1 3.5 - 5.7 g/dL 07/10/2025 4:25 AM EST [facility] Osmolality, Calculated 288 278 - 305 mOsm/kg 07/10/2025 4:25 AM EST [facility] EGFR 74 07/10/2025 4:25 AM EST [facility] Comment:As of 2021, the estimated GFR [...] 3:14 AM EST 07/10/2025 3:56 AM EST Brooklyn Guadalupe MD LAB BLOOD ORDERABLES Final Re sult [facility] [address] * Magnesium (07/10/2025 3:14 AM EST) Magnesium 1.8 1.5 - 2.5 mg/dL 07/10/2025 4:25 AM EST [facility] Plasma 07/10/2025 3:14 AM EST 07/10/2025 3:56 AM EST us Brooklyn Guadalupe MD LAB BLOOD ORDERABLES Final Re sult [facility] [address] * (ABNORMAL) CBC (07/10/2025 3:14 AM EST) WBC 7.0 3.8 - 10.8 10E3/uL 07/10/2025 4:27 AM EST [facility] RBC 3.65(L) 3.80 - 5.10 10E6/uL 07/10/2025 4:27 AM EST [facility] Hemoglobin 9.0(L) 11.7 - 15.5 g/dL 07/10/2025 4:27 AM EST [facility] Hematocrit 27.8(L) 35.0 - 45.0 % 07/10/2025 4:27 AM EST [facility] MCV 76.2(L) 80.0 - 100.0 fL 07/10/2025 4:27 AM EST [facility] MCH 24.6(L) 27.0 - 33.0 pg 07/10/2025 4:27 AM EST [facility] MCHC 32.2 32.0 - 36.0 g/dL 07/10/2025 4:27 AM EST [facility] RDW 18.5(H) 11.0 - 15.0 % 07/10/2025 4:27 AM EST [facility] Platelets 439(H) 140 - 400 10E3/uL 07/10/2025 4:27 AM [facility] MPV 7.0(L) 7.5 - 11.5 fL 07/10/2025 4:27 AM EST [facility] [place] [facility] Whole Blood 07/10/2025 3:14 AM EST 07/10/2025 3:56 AM EST Brooklyn Guadalupe MD LAB BLOOD ORDERABLES Final Re sult [facility] [address] * (ABNORMAL) Renal Function Panel w/EGFR (07/09/2025 3:48 AM EST) Sodium 135 133 - 146 mmol/L 07/09/2025 5:17 AM EST [facility] [place] [facility] Potassium 3.5 3.5 - 5.3 mmol/L 07/09/2025 5:17 AM [facility] [place] [facility] Chloride 104 98 - 110 mmol/L 07/09/2025 5:17 AM EST [facility] [place] [facility] CO2 24 21 - 33 mmol/L 07/09/2025 5:17 AM EST [facility] [place] [facility] Comment:High lactate dehydro genase concentrations in patient samples may cause falsely increased bicarbonate results. If markedly elevated LDH is observed or suspected, please assess results in conjunction with patient`s clinical presentation. In cases of discrepant results, consider evaluating CO2 in with a blood gas order. Anion Gap 7 3 - 16 mmol/L 07/09/2025 5:17 AM EST [facility] [place] [facility] BUN 15 7 - 25 mg/dL 07/09/2025 5:17 AM [facility] Creatinine 0.74 0.60 - 1.30 mg/dL 07/09/2025 5:17 AM [facility] Glucose 101(H) 70 - 100 mg/dL 07/09/2025 5:17 AM [facility] Calcium 9.5 8.6 - 10.3 mg/dL 07/09/2025 5:17 AM [facility] Phosphorus 3.7 2.1 - 4.5 mg/dL 07/09/2025 5:17 AM [facility] Albumin 3.6 3.5 - 5.7 g/dL 07/09/2025 5:17 AM [facility] Osmolality, Calculated 281 278 - 305 mOsm/kg 07/09/2025 5:17 AM [facility] EGFR 83 07/09/2025 5:17 AM EST [facility] Comment:As of 2021, the estimated GFR [...] Disease. Am J Kidney Dis. 2020. Plasma 07/09/2025 3:48 AM EST 07/09/2025 4:17 AM EST Brooklyn Guadalupe MD LAB BLOOD ORDERABLES Final Re sult Performing Organization Address City/[facility]/ZIP Co de Phone Number [facility] [address] * Magnesium (07/09/2025 3:48 AM EST) Magnesium 1.9 1.5 - 2.5 mg/dL 07/09/2025 5:17 AM EST [facility] Plasma 07/09/2025 3:48 AM EST 07/09/2025 4:17 AM EST Brooklyn Guadalupe MD LAB BLOOD ORDERABLES Final Re sult Performing Organization Address City/[facility] Co de Phone Number [facility] [address] [facility]. [address] * (ABNORMAL) CBC (07/09/2025 3:48 AM EST) WBC 5.0 3.8 - 10.8 10E3/uL 07/09/2025 4:37 AM EST [facility] RBC 3.28(L) 3.80 - 5.10 10E6/uL 07/09/2025 4:37 AM EST [facility] Hemoglobin 8.1(L) 11.7 - 15.5 g/dL 07/09/2025 4:37 AM EST [facility] Hematocrit 25.1(L) 35.0 - 45.0 % 07/09/2025 4:37 AM EST [facility] MCV 76.6(L) 80.0 - 100.0 fL 07/09/2025 4:37 AM EST [facility] MCH 24.8(L) 27.0 - 33.0 pg 07/09/2025 4:37 AM EST [facility] MCHC 32.4 32.0 - 36.0 g/dL 07/09/2025 4:37 AM EST [facility] RDW 18.3(H) 11.0 - 15.0 % 07/09/2025 4:37 AM EST [facility] Platelets 412(H) 140 - 400 10E3/uL 07/09/2025 4:37 AM [facility] MPV 6.7(L) 7.5 - 11.5 fL 07/09/2025 4:37 AM EST [facility] Whole Blood 07/09/2025 3:48 AM EST 07/09/2025 4:17 AM EST us Brooklyn Guadalupe MD LAB BLOOD ORDERABLES Final Re sult [facility] [address] [id number], [facility] * FLEXIBLE SIGMOIDOSCOPY (07/08/2025 4:42 PM EST) 07/08/2025 4:42 PM EST Narrative [facility] - 07/08/2025 6:24 PM EST [id number] Procedure Date: 07/08/2025 4:42 PM Patient Name: Gldays Feliciano Date of : 1945 Admit Type: Inpatient Age: 79 Gender: Female Note Status: Finalized Attending MD: Vik Le , , [id number] Procedure: Flexible Sigmoidoscopy Indications: Abnormal CT of the GI tract Patient Profile: 79 y.o. F w/ a PMHx of hiatal hernia, who presents with findings concerning for acute colonic pseudoobstruction. CT abdomen and pelvis with concerns for obstruction at the splenic flexure Providers: Vik Le, Juli Roth MD (Fellow) Referring MD: Attending Provider Unknown [...] the physician, the nurse, the anesthesiologist, the dope maintenance worker and the qc lab technician in the pre-procedure area in the procedure [...] on risk-benefit Procedure Code(s): --- Professional --- 54543, GC, Sigmoidoscopy, flexible; diagnostic, including collection of specimen(s) by brushing or washing, when performed (separate procedure) Diagnosis Code(s): --- Professional --- D12.5, Benign neoplasm of sigmoid colon R93.3, Abnormal findings on diagnostic imaging of other parts of digestive tract CPT copyright 2022 [employer]. All rights reserved. The codes documented in this report are preliminary and upon professional fee coder review may be revised to meet current compliance requirements. Attending Participation: I was present and participated during the entire procedure, including non-grajeda portions. Vik Le MD Vik Le, 07/08/2025 6:23:54 PM This report has been signed electronically.Vik Lloyd MD Juli Roth MD 07/08/2025 6:22:34 PM Total Procedure Duration Time 0 hours 9 minutes 36 seconds Scope In: 4:55:27 PM Scope Out: 5:05:[address] [place] [address], [facility] Attending Provider Unknown PROCEDURE/MINOR SURGI HANNA ORDERABLES Final Result Performing Organization Address [facility] Co de Phone Number [facility] * High Sensitivity Troponin (07/08/2025 3:48 AM EST) Pathologist [facility] High Sensitivity Troponin 8 0 - 14 ng/L 07/08/2025 4:34 AM EST [facility] Serum 07/08/2025 3:48 AM EST 07/08/2025 4:07 AM EST Robin Ribeiro MD LAB BLOOD ORDERABLES Final Result Performing Organization Address [facility] Co de Phone Number [facility] [address] [place] [address] * (ABNORMAL) Renal Function Panel w/EGFR (07/08/2025 3:22 AM EST) Sodium 137 133 - 146 mmol/L 07/08/2025 4:38 AM EST [facility] Potassium 3.8 3.5 - 5.3 mmol/L 07/08/2025 4:38 AM EST [facility] Chloride 103 98 - 110 mmol/L 07/08/2025 4:38 AM EST [facility] CO2 20(L) 21 - 33 mmol/L 07/08/2025 4:38 AM EST [facility] Comment:High lactate dehydro genase concentrations in patient samples may cause falsely increased bicarbonate results. If markedly elevated LDH is observed or suspected, please assess results in conjunction with patient`s clinical presentation. In cases of discrepant results, consider evaluating CO2 in with a blood gas order. Anion Gap 14 3 - 16 mmol/L 07/08/2025 4:38 AM EST [facility] BUN 15 7 - 25 mg/dL 07/08/2025 4:38 AM EST [facility] Creatinine 0.85 0.60 - 1.30 mg/dL 07/08/2025 4:38 AM [facility] Glucose 109(H) 70 - 100 mg/dL 07/08/2025 4:38 AM EST [facility] Calcium 9.7 8.6 - 10.3 mg/dL 07/08/2025 4:38 AM [facility] Phosphorus 3.2 2.1 - 4.5 mg/dL 07/08/2025 4:38 AM [facility] Albumin 4.0 3.5 - 5.7 g/dL 07/08/2025 4:38 AM [facility] Osmolality, Calculated 285 278 - 305 mOsm/kg 07/08/2025 4:38 AM EST [facility] EGFR 71 07/08/2025 4:38 AM [facility] Comment:As of 2021, the estimated GFR [...] MD LAB BLOOD ORDERABLES Final Re sult [facility] [address] * Magnesium (07/08/2025 3:22 AM EST) Magnesium 2.4 1.5 - 2.5 mg/dL 07/08/2025 4:38 AM EST [facility] Plasma 07/08/2025 3:22 AM EST 07/08/2025 4:07 AM EST Brooklyn Guadalupe MD LAB BLOOD ORDERABLES Final Re sult Performing Organization Address City/[facility]/ZIP Co de Phone Number [facility] [address] * (ABNORMAL) CBC (07/08/2025 3:22 AM EST) WBC 5.2 3.8 - 10.8 10E3/uL 07/08/2025 4:14 AM EST [facility] RBC 4.04 3.80 - 5.10 10E6/uL 07/08/2025 4:14 AM EST [facility] Hemoglobin 9.8(L) 11.7 - 15.5 g/dL 07/08/2025 4:14 AM EST [facility] Hematocrit 30.5(L) 35.0 - 45.0 % 07/08/2025 4:14 AM EST [facility] MCV 75.4(L) 80.0 - 100.0 fL 07/08/2025 4:14 AM EST [facility] MCH 24.3(L) 27.0 - 33.0 pg 07/08/2025 4:14 AM EST [facility] MCHC 32.2 32.0 - 36.0 g/dL 07/08/2025 4:14 AM EST [facility] RDW 18.6(H) 11.0 - 15.0 % 07/08/2025 4:14 AM EST [facility] Platelets 513(H) 140 - 400 10E3/uL 07/08/2025 4:14 AM EST [facility] MPV 7.2(L) 7.5 - 11.5 fL 07/08/2025 4:14 AM EST [facility] Whole Blood 07/08/2025 3:22 AM EST 07/08/2025 4:07 AM EST Brooklyn Guadalupe MD LAB BLOOD ORDERABLES Final Re sult [facility] [address] * ECG 12-lead (MUSE) (07/08/2025 3:01 AM EST) 07/08/2025 3:01 AM EST Narrative MUSE - 07/08/2025 11:39 AM EST Ventricular Rate: 106 BPM Atrial Rate: 106 BPM P-R Interval: 122 ms QRS Duration: 70 ms QT: 330 ms QTc: 438 ms P [place]: 85 degrees R [place]: 84 degrees T [place]: 137 degrees Diagnosis Line: SINUS TACHYCARDIA ^ NONSPECIFIC ST SEGMENT CHANGE ^ ABNORMAL ECG ^ No previous ECGs available ^ Confirmed by Kei HENDERSON MD ([id number]) on 07/08/2025 11:39:00 AM Robin Ribeiro MD ECG ORDERABLES Liliya l Result MUSE * (ABNORMAL) CEA (07/07/2025 8:51 AM EST) CEA 5.6(H) 0.0 - 3.0 ng/mL 07/07/2025 11:30 AM EST [facility] Serum 07/07/2025 8:51 AM EST 07/07/2025 9:13 AM EST Narrative [facility] - 07/07/2025 11:30 AM EST The testing method for CEA is a chemiluminescent immunoassay manufactured by [employer] Concentrations of CEA obtained by different assay methods or kits may vary and cannot be used interchangeably. CEA results cannot be interpreted as absolute evidence of the presence or absence of malignant disease. us Roseline Daigle CNP LAB BLOOD ORDERABLES Final Result [facility] [address] [place] [address], [facility] * Renal Function Panel w/EGFR (07/07/2025 3:44 AM EST) Sodium 136 133 - 146 mmol/L 07/07/2025 4:16 AM EST [facility] Potassium 3.7 3.5 - 5.3 mmol/L 07/07/2025 4:16 AM EST [facility] Chloride 104 98 - 110 mmol/L 07/07/2025 4:16 AM EST [facility] CO2 24 21 - 33 mmol/L 07/07/2025 4:16 AM [facility] Comment:High lactate dehydro genase concentrations in patient samples may cause falsely increased bicarbonate results. If markedly elevated LDH is observed or suspected, please assess results in conjunction with patient`s clinical presentation. In cases of discrepant results, consider evaluating CO2 in with a blood gas order. Anion Gap 8 3 - 16 mmol/L 07/07/2025 4:16 AM EST [facility] BUN 12 7 - 25 mg/dL 07/07/2025 4:16 AM [facility] Creatinine 0.73 0.60 - 1.30 mg/dL 07/07/2025 4:16 AM [facility] Glucose 86 70 - 100 mg/dL 07/07/2025 4:16 AM [facility] Calcium 8.9 8.6 - 10.3 mg/dL 07/07/2025 4:16 AM [facility] Phosphorus 3.4 2.1 - 4.5 mg/dL 07/07/2025 4:16 AM [facility] Albumin 3.5 3.5 - 5.7 g/dL 07/07/2025 4:16 AM [facility] Osmolality, Calculated 281 278 - 305 mOsm/kg 07/07/2025 4:16 AM [facility] EGFR 85 07/07/2025 4:16 AM [facility] Comment:As of 2021, the estimated GFR [...] ORDERABLES Final Re sult Performing Organization Address [facility]/ZIP Co de Phone Number [facility] [address] [facility]. [address] * Magnesium (07/07/2025 3:44 AM EST) Magnesium 1.6 1.5 - 2.5 mg/dL 07/07/2025 4:16 AM EST [facility] Plasma 07/07/2025 3:44 AM EST 07/07/2025 3:48 AM EST Brooklyn Guadalupe MD LAB BLOOD ORDERABLES Final Re sult Performing Organization Address [facility] Co de Phone Number [facility] [address] [place] [address]. [address] * (ABNORMAL) CBC (07/07/2025 3:44 AM EST) WBC 5.2 3.8 - 10.8 10E3/uL 07/07/2025 4:04 AM EST [facility] RBC 3.45(L) 3.80 - 5.10 10E6/uL 07/07/2025 4:04 AM EST [facility] Hemoglobin 8.5(L) 11.7 - 15.5 g/dL 07/07/2025 4:04 AM EST [facility] Hematocrit 26.7(L) 35.0 - 45.0 % 07/07/2025 4:04 AM EST [facility] MCV 77.5(L) 80.0 - 100.0 fL 07/07/2025 4:04 AM [facility] MCH 24.8(L) 27.0 - 33.0 pg 07/07/2025 4:04 AM [facility] MCHC 32.0 32.0 - 36.0 g/dL 07/07/2025 4:04 AM [facility] RDW 18.8(H) 11.0 - 15.0 % 07/07/2025 4:04 AM [facility] Platelets 411(H) 140 - 400 10E3/uL 07/07/2025 4:04 AM [facility] MPV 6.6(L) 7.5 - 11.5 fL 07/07/2025 4:04 AM [facility] Whole Blood 07/07/2025 3:44 AM EST 07/07/2025 3:48 AM EST Brooklyn Guadalupe MD LAB BLOOD ORDERABLES Final Re sult [facility] [address] * Renal Function Panel w/EGFR (07/06/2025 3:02 AM EST) Sodium 137 133 - 146 mmol/L 07/06/2025 6:23 AM [facility] Potassium 3.9 3.5 - 5.3 mmol/L 07/06/2025 6:23 AM [facility] Chloride 105 98 - 110 mmol/L 07/06/2025 6:23 AM [facility] CO2 22 21 - 33 mmol/L 07/06/2025 6:23 AM [facility] Comment:High lactate dehydro genase concentrations in patient samples may cause falsely increased bicarbonate results. If markedly elevated LDH is observed or suspected, please assess results in conjunction with patient`s clinical presentation. In cases of discrepant results, consider evaluating CO2 in with a blood gas order. Anion Gap 10 3 - 16 mmol/L 07/06/2025 6:23 AM [facility] BUN 12 7 - 25 mg/dL 07/06/2025 6:23 AM [facility] Creatinine 0.61 0.60 - 1.30 mg/dL 07/06/2025 6:23 AM EST [facility] Glucose 81 70 - 100 mg/dL 07/06/2025 6:23 AM EST [facility] Calcium 9.0 8.6 - 10.3 mg/dL 07/06/2025 6:23 AM EST [facility] Phosphorus 2.9 2.1 - 4.5 mg/dL 07/06/2025 6:23 AM EST [facility] Albumin 3.5 3.5 - 5.7 g/dL 07/06/2025 6:23 AM EST [facility] Osmolality, Calculated 283 278 - 305 mOsm/kg 07/06/2025 6:23 AM EST [facility] EGFR >90 07/06/2025 6:23 AM EST [facility] Comment: As of 2021, the estimated [...] MD LAB BLOOD ORDERABLES Final Re sult [facility] [address] * Magnesium (07/06/2025 3:02 AM EST) Magnesium 1.7 1.5 - 2.5 mg/dL 07/06/2025 6:23 AM EST [facility] Plasma 07/06/2025 3:02 AM EST 07/06/2025 5:33 AM EST Brooklyn Guadalupe MD LAB BLOOD ORDERABLES Final Re sult [facility] [address] [place], [place] [address] * (ABNORMAL) CBC (07/06/2025 3:02 AM EST) WBC 5.1 3.8 - 10.8 10E3/uL 07/06/2025 5:57 AM EST [facility] RBC 3.29(L) 3.80 - 5.10 10E6/uL 07/06/2025 5:57 AM [facility] Hemoglobin 8.3(L) 11.7 - 15.5 g/dL 07/06/2025 5:57 AM [facility] Hematocrit 25.3(L) 35.0 - 45.0 % 07/06/2025 5:57 AM EST [facility] MCV 77.1(L) 80.0 - 100.0 fL 07/06/2025 5:57 AM [facility] MCH 25.1(L) 27.0 - 33.0 pg 07/06/2025 5:57 AM [facility] MCHC 32.6 32.0 - 36.0 g/dL 07/06/2025 5:57 AM [facility] RDW 18.5(H) 11.0 - 15.0 % 07/06/2025 5:57 AM [facility] Platelets 426(H) 140 - 400 10E3/uL 07/06/2025 5:57 AM [facility] MPV 7.1(L) 7.5 - 11.5 fL 07/06/2025 5:57 AM [facility] Whole Blood 07/06/2025 3:02 AM EST 07/06/2025 5:33 AM EST us Brooklyn Guadalupe MD LAB BLOOD ORDERABLES Final Re sult [facility] [address] [place] [address], [facility] * (ABNORMAL) Renal Function Panel w/EGFR (07/05/2025 9:38 AM EDT) Sodium 134 133 - 146 mmol/L 07/05/2025 10:28 AM EDT [facility] Potassium 4.0 3.5 - 5.3 mmol/L 07/05/2025 10:28 AM EDT [facility] Chloride 102 98 - 110 mmol/L 07/05/2025 10:28 AM EDT [facility] CO2 23 21 - 33 mmol/L 07/05/2025 10:28 AM EDT [facility] Comment:High lactate dehydro genase concentrations in patient samples may cause falsely increased bicarbonate results. If markedly elevated LDH is observed or suspected, please assess results in conjunction with patient`s clinical presentation. In cases of discrepant results, consider evaluating CO2 in with a blood gas order. Anion Gap 9 3 - 16 mmol/L 07/05/2025 10:28 AM EDT [facility] BUN 9 7 - 25 mg/dL 07/05/2025 10:28 AM EDT [facility] Creatinine 0.68 0.60 - 1.30 mg/dL 07/05/2025 10:28 AM EDT [facility] Glucose 133(H) 70 - 100 mg/dL 07/05/2025 10:28 AM EDT [facility] Calcium 9.0 8.6 - 10.3 mg/dL 07/05/2025 10:28 AM EDT [facility] Phosphorus 2.9 2.1 - 4.5 mg/dL 07/05/2025 10:28 AM EDT [facility] Albumin 3.6 3.5 - 5.7 g/dL 07/05/2025 10:28 AM EDT [facility] Osmolality, Calculated 279 278 - 305 mOsm/kg 07/05/2025 10:28 AM EDT [facility] EGFR 90 07/05/2025 10:28 AM EDT [facility] Comment:As of 2021, the estimated GFR [...] ORDERABLES Final Re sult Performing Organization Address [facility]/ZIP Co de Phone Number [facility] [address] [facility]. [address] * Magnesium (07/05/2025 9:38 AM EDT) Magnesium 1.8 1.5 - 2.5 mg/dL 07/05/2025 10:28 AM EDT [facility] Plasma 07/05/2025 9:38 AM EDT 07/05/2025 9:49 AM EDT Brooklyn Guadalupe MD LAB BLOOD ORDERABLES Final Re sult Performing Organization Address [facility]/ZIP Co de Phone Number [facility] [address] [facility]. [address] * (ABNORMAL) CBC (07/05/2025 9:38 AM EDT) WBC 5.7 3.8 - 10.8 10E3/uL 07/05/2025 10:30 AM EDT [facility] RBC 3.57(L) 3.80 - 5.10 10E6/uL 07/05/2025 10:30 AM EDT [facility] Hemoglobin 8.8(L) 11.7 - 15.5 g/dL 07/05/2025 10:30 AM EDT [facility] Hematocrit 27.5(L) 35.0 - 45.0 % 07/05/2025 10:30 AM EDT [facility] MCV 77.1(L) 80.0 - 100.0 fL 07/05/2025 10:30 AM EDT [facility] MCH 24.5(L) 27.0 - 33.0 pg 07/05/2025 10:30 AM EDT [facility] MCHC 31.8(L) 32.0 - 36.0 g/dL 07/05/2025 10:30 AM EDT [facility] RDW 19.0(H) 11.0 - 15.0 % 07/05/2025 10:30 AM EDT [facility] Platelets 419(H) 140 - 400 10E3/uL 07/05/2025 10:30 AM EDT [facility] MPV 6.7(L) 7.5 - 11.5 fL 07/05/2025 10:30 AM EDT [facility] Whole Blood 07/05/2025 9:38 AM EDT 07/05/2025 9:49 AM EDT Brooklyn Guadalupe MD LAB BLOOD ORDERABLES Final Re sult Performing Organization Address [facility]/ZIP Co de Phone Number [facility] [address] * T4 (Thyroxine) (07/04/2025 6:57 PM EDT) T4, Total 7.60 4.60 - 11.50 ug/dL 07/04/2025 8:28 PM EDT [facility] Serum 07/04/2025 6:57 PM EDT 07/04/2025 7:48 PM EDT Steffanie Corcoran MD LAB BLOOD ORDERABLES Fin al Result [facility] [address] [facility]. [address] * T3, Total (07/04/2025 6:57 PM EDT) T3, Total 66.6 60.0 - 220.0 ng/dL 07/04/2025 8:38 PM EDT [facility] Comment:Biotin megadosing (c onsumption >300 mcg/day) may falsely elevate total T3. When indicated, discontinue megadosing for 1 week and repeat testing. Serum 07/04/2025 6:57 PM EDT 07/04/2025 7:48 PM EDT Steffanie Corcoran MD LAB BLOOD ORDERABLES Fin al Result Performing Organization Address City/[facility]/ZIP Co de Phone Number [facility] [address] * TSH (Thyroid Stimulating Hormone) (07/04/2025 6:57 PM EDT) TSH 1.57 0.45 - 4.12 uIU/mL 07/04/2025 8:57 PM EDT [facility] Serum 07/04/2025 6:57 PM EDT 07/04/2025 7:48 PM EDT Steffanie Corcoran MD LAB BLOOD ORDERABLES Fin al Result Performing Organization Address City/[facility]/ZIP Co de Phone Number [facility] [address] [place] [address] * CT Abdomen and Pelvis With [...] 07/05/2025 7:56 AM EDT Steffanie Corcoran MD [facility] CT ORDERABLES Final Result * X-ray Portable [...] 07/04/2025 10:06 AM EDT Steffanie Corcoran MD [facility] DIAGNOSTIC IMAGING O RDERABLES Final Result * (ABNORMAL) Renal Function Panel w/EGFR (07/04/2025 4:54 AM EDT) Sodium 133 133 - 146 mmol/L 07/04/2025 5:27 AM EDT [facility] Potassium 4.5 3.5 - 5.3 mmol/L 07/04/2025 5:27 AM EDT [facility] Comment:Hemolysis Present: R esults may be influenced artificially. Recommend recollection as clinically indicated. Chloride 104 98 - 110 mmol/L 07/04/2025 5:27 AM EDT [facility] CO2 24 21 - 33 mmol/L 07/04/2025 5:27 AM EDT [facility] Comment:High lactate dehydro genase concentrations in patient samples may cause falsely increased bicarbonate results. If markedly elevated LDH is observed or suspected, please assess results in conjunction with patient`s clinical presentation. In cases of discrepant results, consider evaluating CO2 in with a blood gas order. Anion Gap 5 3 - 16 mmol/L 07/04/2025 5:27 AM EDT [facility] BUN 14 7 - 25 mg/dL 07/04/2025 5:27 AM EDT [facility] Creatinine 0.72 0.60 - 1.30 mg/dL 07/04/2025 5:27 AM EDT [facility] Glucose 119(H) 70 - 100 mg/dL 07/04/2025 5:27 AM EDT [facility] Calcium 9.0 8.6 - 10.3 mg/dL 07/04/2025 5:27 AM EDT [facility] Phosphorus 3.8 2.1 - 4.5 mg/dL 07/04/2025 5:27 AM EDT [facility] Albumin 3.5 3.5 - 5.7 g/dL 07/04/2025 5:27 AM EDT [facility] Osmolality, Calculated 278 278 - 305 mOsm/kg 07/04/2025 5:27 AM EDT [facility] EGFR 86 07/04/2025 5:27 AM EDT [facility] Comment:As of 2021, the estimated GFR [...] ORDERABLES Final Re sult Performing Organization Address [facility] de Phone Number [facility] [address] [facility]. [address] * (ABNORMAL) Magnesium (07/04/2025 4:54 AM EDT) Magnesium 2.8(H) 1.5 - 2.5 mg/dL 07/04/2025 5:27 AM EDT [facility] Plasma 07/04/2025 4:54 AM EDT 07/04/2025 4:58 AM EDT Brooklyn Guadalupe MD LAB BLOOD ORDERABLES Final Re sult Performing Organization Address [facility] de Phone Number [facility] [address] [facility]. [address] * (ABNORMAL) CBC (07/04/2025 4:54 AM EDT) WBC 7.0 3.8 - 10.8 10E3/uL 07/04/2025 5:38 AM EDT [facility] RBC 3.31(L) 3.80 - 5.10 10E6/uL 07/04/2025 5:38 AM EDT [facility] Hemoglobin 8.3(L) 11.7 - 15.5 g/dL 07/04/2025 5:38 AM EDT [facility] Hematocrit 25.7(L) 35.0 - 45.0 % 07/04/2025 5:38 AM EDT [facility] MCV 77.7(L) 80.0 - 100.0 fL 07/04/2025 5:38 AM EDT [facility] MCH 25.2(L) 27.0 - 33.0 pg 07/04/2025 5:38 AM EDT [facility] MCHC 32.4 32.0 - 36.0 g/dL 07/04/2025 5:38 AM EDT [facility] RDW 18.8(H) 11.0 - 15.0 % 07/04/2025 5:38 AM EDT [facility] Platelets 426(H) 140 - 400 10E3/uL 07/04/2025 5:38 AM EDT [facility] MPV 6.6(L) 7.5 - 11.5 fL 07/04/2025 5:38 AM EDT [facility] Whole Blood 07/04/2025 4:54 AM EDT 07/04/2025 5:05 AM EDT us Brooklyn Guadalupe MD LAB BLOOD ORDERABLES Final Re sult [facility] [address] * Anti-Xa LMW Heparin (07/04/2025 4:54 AM EDT) Anti-Xa LMW Heparin 0.57 0.50 - 1.10 units/mL 07/04/2025 5:35 AM EDT [facility] Plasma 07/04/2025 4:54 AM EDT 07/04/2025 5:05 AM EDT us Brooklyn Guadalupe MD LAB BLOOD ORDERABLES Final Re sult [facility] [address] * Magnesium, STAT (07/03/2025 10:18 PM EDT) Magnesium 1.5 1.5 - 2.5 mg/dL 07/03/2025 10:49 PM EDT [facility] Plasma 07/03/2025 10:1 8 PM EDT 07/03/2025 10:29 PM EDT Brooklyn Guadalupe MD LAB BLOOD ORDERABLES Final Re sult [facility] [address] [id number] * Renal Function Panel w/EGFR, STAT (07/03/2025 10:18 PM EDT) Sodium 136 133 - 146 mmol/L 07/03/2025 10:49 PM EDT [facility] Potassium 3.7 3.5 - 5.3 mmol/L 07/03/2025 10:49 PM EDT [facility] Chloride 104 98 - 110 mmol/L 07/03/2025 10:49 PM EDT [facility] CO2 24 21 - 33 mmol/L 07/03/2025 10:49 PM EDT [facility] Comment:High lactate dehydro genase concentrations in patient samples may cause falsely increased bicarbonate results. If markedly elevated LDH is observed or suspected, please assess results in conjunction with patient`s clinical presentation. In cases of discrepant results, consider evaluating CO2 in with a blood gas order. Anion Gap 8 3 - 16 mmol/L 07/03/2025 10:49 PM EDT [facility] BUN 14 7 - 25 mg/dL 07/03/2025 10:49 PM EDT [facility] Creatinine 0.73 0.60 - 1.30 mg/dL 07/03/2025 10:49 PM EDT [facility] Glucose 86 70 - 100 mg/dL 07/03/2025 10:49 PM EDT [facility] Calcium 9.1 8.6 - 10.3 mg/dL 07/03/2025 10:49 PM EDT [facility] Phosphorus 2.8 2.1 - 4.5 mg/dL 07/03/2025 10:49 PM EDT [facility] Albumin 3.6 3.5 - 5.7 g/dL 07/03/2025 10:49 PM EDT [facility] Osmolality, Calculated 282 278 - 305 mOsm/kg 07/03/2025 10:49 PM EDT [facility] EGFR 85 07/03/2025 10:49 PM EDT [facility] Comment:As of 2021, the estimated GFR [...] MD LAB BLOOD ORDERABLES Final Re sult [facility] [address] [facility]. [place] [id number], [facility] * X-ray Portable Abdomen AP view [...] Guillaume MD at 07/03/2025 10:00 PM EDT Brooklyn Guadalupe MD IMG DIAGNOSTIC IMAGING ORDERA BLES Final Result * C-Reactive Protein (07/03/2025 7:49 AM EDT) CRP 3.0 1.0 - 10.0 mg/L 07/03/2025 8:14 AM EDT [facility] Plasma 07/03/2025 7:49 AM EDT 07/03/2025 7:53 AM EDT us Steffanie Corcoran MD LAB BLOOD ORDERABLES Fin al Result [facility] [address] [facility]. [place], [place] [address] * Phosphorus, STAT (07/03/2025 7:10 AM EDT) Phosphorus 3.6 2.1 - 4.5 mg/dL 07/03/2025 7:54 AM EDT [facility] Plasma 07/03/2025 7:10 AM EDT 07/03/2025 7:20 AM EDT us Brooklyn Guadalupe MD LAB BLOOD ORDERABLES Final Re sult Performing Organization Address [facility] de Phone Number [facility] [address] * Magnesium, STAT (07/03/2025 7:10 AM EDT) Magnesium 1.6 1.5 - 2.5 mg/dL 07/03/2025 7:54 AM EDT [facility] Plasma 07/03/2025 7:10 AM EDT 07/03/2025 7:20 AM EDT us Brooklyn Guadalupe MD LAB BLOOD ORDERABLES Final Re sult Performing Organization Address [facility] de Phone Number [facility] [address] * Hemoglobin A1C (07/03/2025 7:10 AM EDT) Hemoglobin A1C 5.2 4.0 - 5.6 % 07/04/2025 1:23 AM EDT [facility] Comment: Hemoglobin A1c Interpretation Guidelines: Normal: [...] ORDERABLES Final Re sult Performing Organization Address [facility]/ZIP Co de Phone Number [facility] [address] [facility]. [address] * (ABNORMAL) Anti-Xa LMW Heparin (07/03/2025 7:10 AM EDT) Anti-Xa LMW Heparin 1.46(H) 0.50 - 1.10 units/mL 07/03/2025 7:39 AM EDT [facility] Plasma 07/03/2025 7:10 AM EDT 07/03/2025 7:20 AM EDT Brooklyn Guadalupe MD LAB BLOOD ORDERABLES Final Re sult Performing Organization Address [facility] Co de Phone Number [facility] [address] [facility]. [address] * Lactic acid, venous, whole blood (07/03/2025 2:35 AM EDT) Lactate, Danny 0.9 0.5 - 1.6 mmol/L 07/03/2025 2:44 AM EDT [facility] Blood, Venous 07/03/2025 2:3 5 AM EDT 07/03/2025 2:41 AM EDT Veronika Mercado MD LAB BLOOD ORDERABLES Final Resul t Performing Organization Address [facility] Co de Phone Number [facility] [address] [facility]. [address] * Differential (07/03/2025 2:35 AM EDT) Neutrophils Relative 72.2 40.0 - 80.0 % 07/03/2025 2:51 AM EDT [facility] Lymphocytes Relative 18.3 15.0 - 45.0 % 07/03/2025 2:51 AM EDT [facility] Monocytes Relative 7.2 0.0 - 12.0 % 07/03/2025 2:51 AM EDT [facility] Eosinophils Relative 1.8 0.0 - 8.0 % 07/03/2025 2:51 AM EDT [facility] Basophils Relative 0.5 0.0 - 1.0 % 07/03/2025 2:51 AM EDT [facility] nRBC 0 0 - 0 /100 WBC 07/03/2025 2:51 AM EDT [facility] Neutrophils Absolute 5,126 1,520 - 8,640 /uL 07/03/2025 2:51 AM EDT [facility] Lymphocytes Absolute 1,299 570 - 4,860 /uL 07/03/2025 2:51 AM EDT [facility] Monocytes Absolute 511 0 - 1,296 /uL 07/03/2025 2:51 AM EDT [facility] Eosinophils Absolute 128 0 - 864 /uL 07/03/2025 2:51 AM EDT [facility] Basophils Absolute 36 0 - 108 /uL 07/03/2025 2:51 AM EDT [facility] Whole Blood 07/03/2025 2:35 AM EDT 07/03/2025 2:46 AM EDT us Veronika Mercado MD LAB BLOOD ORDERABLES Final Resul t [facility] [address] * (ABNORMAL) CBC (07/03/2025 2:35 AM EDT) WBC 7.1 3.8 - 10.8 10E3/uL 07/03/2025 2:51 AM EDT [facility] RBC 3.47(L) 3.80 - 5.10 10E6/uL 07/03/2025 2:51 AM EDT [facility] Hemoglobin 8.8(L) 11.7 - 15.5 g/dL 07/03/2025 2:51 AM EDT [facility] Hematocrit 26.6(L) 35.0 - 45.0 % 07/03/2025 2:51 AM EDT [facility] MCV 76.6(L) 80.0 - 100.0 fL 07/03/2025 2:51 AM EDT [facility] MCH 25.4(L) 27.0 - 33.0 pg 07/03/2025 2:51 AM EDT [facility] MCHC 33.2 32.0 - 36.0 g/dL 07/03/2025 2:51 AM EDT [facility] RDW 18.3(H) 11.0 - 15.0 % 07/03/2025 2:51 AM EDT [facility] Platelets 486(H) 140 - 400 10E3/uL 07/03/2025 2:51 AM EDT [facility] MPV 6.4(L) 7.5 - 11.5 fL 07/03/2025 2:51 AM EDT [facility] Whole Blood 07/03/2025 2:35 AM EDT 07/03/2025 2:46 AM EDT us Veronika Mercado MD LAB BLOOD ORDERABLES Final Resul t Performing Organization Address City/[facility] Co de Phone Number [facility] [address] [facility]. [address] * ED HCV Ab Reflex To HCV Quant (07/03/2025 2:35 AM EDT) HCV Ab Nonreactive Nonreactive 07/03/2025 4:12 AM EDT [facility] Comment:Health Department no tified in accordance with reportable infectious disease guidelines. HCVAB Number 0.02 0.00 - 0.79 S/CO 07/03/2025 4:12 AM EDT [facility] Serum 07/03/2025 2:35 AM EDT 07/03/2025 2:46 AM EDT us Veronika Mercado MD LAB BLOOD ORDERABLES Final Resul t Performing Organization Address City/[facility]/ZIP Co de Phone Number [facility] [address] [facility]. [address] * (ABNORMAL) Basic metabolic panel (07/03/2025 2:35 AM EDT) Sodium 131(L) 133 - 146 mmol/L 07/03/2025 3:06 AM EDT [facility] Potassium 3.4(L) 3.5 - 5.3 mmol/L 07/03/2025 3:06 AM EDT [facility] Chloride 97(L) 98 - 110 mmol/L 07/03/2025 3:06 AM EDT [facility] CO2 25 21 - 33 mmol/L 07/03/2025 3:06 AM T [facility] Comment:High lactate dehydro genase concentrations in patient samples may cause falsely increased bicarbonate results. If markedly elevated LDH is observed or suspected, please assess results in conjunction with patient`s clinical presentation. In cases of discrepant results, consider evaluating CO2 in with a blood gas order. Anion Gap 9 3 - 16 mmol/L 07/03/2025 3:06 AM EDT [facility] BUN 21 7 - 25 mg/dL 07/03/2025 3:06 AM EDT [facility] Creatinine 0.88 0.60 - 1.30 mg/dL 07/03/2025 3:06 AM EDT [facility] Glucose 110(H) 70 - 100 mg/dL 07/03/2025 3:06 AM EDT [facility] Calcium 9.4 8.6 - 10.3 mg/dL 07/03/2025 3:06 AM [facility] Osmolality, Calculated 276(L) 278 - 305 mOsm/kg 07/03/2025 3:06 AM EDT [facility] EGFR 68 07/03/2025 3:06 AM T [facility] Comment:As of 2021, the estimated GFR [...] MD LAB BLOOD ORDERABLES Final Resul t [facility] [address] [place] [address], [facility] documented in this encounter Visit Diagnoses Diagnosis SBO (small bowel obstruction) (CMS-HCC)- Primary Unspecified intestinal obstruction Polyp of sigmoid colon, unspecified type SBO (small bowel obstruction) (CMS-HCC) Unspecified intestinal obstruction documented in this encounter Administered Medications Inactive Administered Medications - up to 3 most recent administrations Medication Order MAR Action Action Date Dose Rate Site acetaminophen (TYLENOL) tablet 975 mg 975 mg, Oral, Every 8 hours PRN, mild pain (NRS 1-3); no comparable CPOT score, moderate pain (NRS 4-6) or if patient is non-communicative (CPOT 3-5), Starting on Mon07/06/25 at 1904 Given 07/09/2025 6:08 PM EST [...] Oral, 2 times daily, First dose on Mon07/06/25 at 0900, For patients who are unable [...] Given 07/08/2025 9:46 PM EST 500 mg diphenhydrAMINE (BENADRYL) capsule 25 mg 25 mg, Oral, Nightly PRN, Agitation, Starting on 07/07/25 at 2339 Given 07/09/2025 9:21 PM EST 25 mg Given 07/08/2025 9:46 PM EST 25 mg Given 07/07/2025 11:26 PM EST 25 mg gabapentin (NEURONTIN) capsule 300 mg 300 mg, Oral, 3 times daily, First dose on [place] 07/03/25 at 0900 Given 07/10/2025 2:34 PM EST 300 mg Given 07/10/2025 8:32 AM EST 300 mg Given 07/09/2025 9:21 PM EST 300 mg hydrALAZINE (APRESOLINE) 20 mg/mL injection 10 mg 10 mg, Intravenous, Every 6 hours PRN, For SBP greater than : , 160, hold for HR > 100, Starting on [place] 07/03/25 at 0644 Given 07/09/2025 11:42 PM EST 10 mg Given 07/08/2025 1:07 AM EST 10 mg methocarbamoL (ROBAXIN) tablet 500 mg 500 mg, Oral, 4 times daily PRN, Muscle spasms, Starting on 07/05/25 at 0725 Given 07/10/2025 1:46 AM EST 500 mg Given 07/09/2025 6:08 PM EST 500 mg Given 07/08/2025 11:56 PM EST 500 mg ondansetron (ZOFRAN) tablet 4 mg 4 mg, Oral, Every 6 hours PRN, Nausea and/or Vomiting, Starting on Mon07/07/25 at 1414 Given 07/08/2025 1:07 AM EST 4 mg pantoprazole (PROTONIX) EC tablet 40 mg 40 mg, Oral, Daily6, First dose on Mon07/07/25 at 0630, Do Not Crush Given 07/10/2025 8:32 AM EST 40 mg Given 07/09/2025 5:11 AM EST 40 mg Given 07/08/2025 8:48 AM EST 40 mg QUEtiapine (SEROQUEL) tablet 25 mg 25 mg, Oral, At Bedtime (2100), First dose on Mon07/10/25 at 0300 Given 07/10/2025 2:30 AM EST 25 mg senna-docusate (SENNA-S) 8.6-50 mg per tablet 1 tablet 1 tablet, Oral, At Bedtime (2100), First dose (after last modification) on Mon07/10/25 at 2100 documented in this encounter Active and Recently Administered Medications Times are shown in EST. Scheduled Medication Order 07/08/2025 07/09/2025 07/10/2025 apixaban (ELIQUIS) tablet 5 mg 5 mg, Oral, 2 times daily, First dose on Mon07/06/25 at 0900, For patients who are unable [...] RN)2120 (Given - Provider: Jacquelyn Smith RN) 0832 (Given - Provider: Sridevi Fuchs RN) atorvastatin (LIPITOR) tablet 10 mg 10 mg, Oral, At Bedtime (2100), First dose on Mon07/06/25 at 2100, Therapeutic Interchange: pravastatin (PRAVACHOL) 40 mg daily = atorvastatin (LIPITOR) 10 mg dose at bedtime 2145 (Given - Provider: Jacquelyn Smith RN) 2120 (Given - Provider: Jacquelyn Smith RN) gabapentin (NEURONTIN) capsule 300 mg 300 mg, Oral, 3 times daily, First dose on Mon07/03/25 at 0900 0848 (Given - Provider: Thuy Byers RN)1307 (Given - Provider: Thuy Byers, ANN)214 (Given - Provider: Jacquelyn Smith, ANN) 0924 (Given - Provider: Sridevi Fuchs RN)1322 (Given - Provider: Sridevi Fuchs RN)212 (Given - Provider: Jacquelyn Smith, ANN) 0832 (Given - Provider: Sridevi Fuchs, ANN)1434 (Given - Provider: Sridevi Fuchs RN) pantoprazole [...] Oral, At Bedtime (2099), First dose on [place] 07/10/25 at 0300 0230 (Given - Provider: Jacquelyn Smith RN) senna-docusate (SENNA-S) 8.6-50 mg per tablet 1 tablet (CANCELED) 1 tablet, Oral, 2 times daily, First dose (after last modification) on [place] 07/06/25 at 2100 0848 (Given - Provider: Thuy Byers RN)2145 (Given - Provider: Jacquelyn Smith RN) 0924 (Given - Provider: Sridevi Fuchs RN)2121 (Given - Provider: Jacquelyn Smith RN) 0833 (Not Given - Provider: Sridevi Fuchs RN - Reason: Patient/family refused) senna-docusate (SENNA-S) 8.6-50 mg per tablet 1 tablet 1 tablet, Oral, At Bedtime (2099), First dose (after last modification) on [place] 07/10/25 at 2100 simethicone (MYLICON) chewable tablet 80 mg (CANCELED) 80 mg, Oral, 30 min after meals and bedtime, First dose on [place] 07/06/25 at 1330 0848 (Given - Provider: Thuy Byers RN)1230 (Not Given - Provider: Thuy Byesr RN - Reason: NPO)1857 (Given - Provider: Thuy Byers RN)214 (Given - Provider: Jacquelyn Smith RN) 0924 (Given - Provider: Sridevi Fuchs RN)1322 (Given - Provider: Sridevi Fuchs, RN)1808 (Given - Provider: Sridevi Fuchs, ANN) PRN Medication Order 07/08/2025 07/09/202507/1007/10/2025 acetaminophen (TYLENOL) tablet 975 mg 975 mg, [...] Smith RN)2146 (Given - Provider: Jacquelyn Smith RN)2354 (Given - Provider: Jacquelyn Smith RN) 1808 (Given - Provider: Sridevi Fuchs RN) diphenhydrAMINE (BENADRYL) capsule 25 mg 25 mg, Oral, Nightly PRN, Agitation, Starting on 07/07/25 at 2339 2146 (Given - Provider: Jacquelyn Smith RN) 2121 (Given - Provider: Jacquelyn Smith RN) hydrALAZINE [...] Jacquelyn Smith RN)2356 (Given - Provider: Jacquelyn Smith, ANN) 1808 (Given - Provider: Sridevi Fuchs, ANN) 0146 (Given - Provider: Jacquelyn Smith RN) ondansetron (ZOFRAN) tablet 4 mg 4 mg, Oral, Every 6 hours PRN, Nausea and/or Vomiting, Starting on Mon07/07/25 at 1414 0107 (Given - Provider: Jacquelyn [...] SPLIT documented in this encounter Care Teams Business Administrator Relationship Specialty Start Date End Date Placido Mercado MD [address] [place] [address] [place] [address] PCP - General 07/03/25 documented as of this encounter
--- OUTSIDE RECORDS SUMMARY | 2025-07-08 16:48 | XMS_ITS | Encounter Summary ---
Author Organization [facility] Address [address] [place] [address] Care Team Providers Care Singing Telegram Performer Name Role Phone Placido Mercado MD Primary Care Provider [phone] Source Comments This information has been disclosed [...] release of HIV test results or diagnoses. [id number] Reason for Visit * Auth/Cert (Routine) Specialty Diagnoses / Procedures Referred By Ryan garcia Referred To Contact Emergency Medicine Diagnoses HIGH GRADE BOWEL OBSTRUCTION [facility] Emergency Department [address] [place] [id number] Phone: tel: fax: Referral ID Status Reason Start Date Expiration Date Visits Re quested Visits Authorized [id number] 1 1 Encounter Details Date Type Department Care Team (Late st Contact Info) Description 07/08/2025 4:48 PM EST Anesthesia Event [facility] ENDOSCOPY [address] [place] [address] Rusty Collier MD [address] [facility] [id number] Karissa Eng RN Anesthesia Record Procedure Summary Procedure Name Responsible Anesthesiologist Anesthesia Start Time Anesthesia Stop Time SIGMOID FLEXIBLE Rusty Collier MD 07/08/25 1648 07/08 1713 Events Date Time Event Comment 07/08/2025 1648 An Start 1648 An Start Data 1649 An Induction 1656 Time Out 1705 An Emergence 1705 Remove Airway Device 1707 an stop data 1713 An Stop Meds Name Total lidocaine (XYLOCAINE) 20 mg/mL (2%) inje ction 100 mg propofol (DIPRIVAN) 10 mg/ml IV injectio n (BOLUS) 60 mg propofol (DIPRIVAN) 10 mg/ml infusion - 20ML VIAL SIZE 109.48 mg 0.9% NaCl infusion 200 mL * Agents Name N2O O2 N2O Air * Blood No blood administrations on file. Lines, Drains, and Airways Type Details Placement Removal Peripheral IV 07/07/25; 1530; Anterior, Left; Forearm; Chlorhexidine; Ultrasound Guided; Tolerated well 07/07/25 1530 by Gunjan Nuno RN Anesthesia Airway Device 07/08/25; 1643; Nasal Cannula Salter; 07/08/25; 1705 07/08/25 1643 by Karissa Eng RN 07/08/25 1705 by Karissa Eng RN documented in this encounter Social History Tobacco Use Types Packs/Day Years Used Date Smoking Tobacco: Never Smokeless Tobacco: Never Alcohol Use Standard Drinks/Week Comments Not Currently 0 (1 standard drink = 0.6 oz pur e alcohol) [facility] Utilities Answer Date Recorded In the past 12 months has [employer], gas, oil, or water [employer] threatened to shut off services in your [...] any time in the past 12 m ont, were you homeless or living in a long term (including now)? No 07/05/2025 Comments No Sex and Gender Information Value Date Recorded Sex Assigned at Not on file Legal Sex Female 10:34 PM EDT Gender Identity Not on file Sexual Orientation Not on file documented as of this encounter Progress Notes * Rusty Collier MD - 07/08/2025 8:27 PM EST Anesthesia Post Note Patient: Gladys Moseleyall Procedure(s) Performed: Procedure(s): SIGMOID FLEXIBLE Anesthesia type: MAC Patient location: Endoscopy PACU Airway: Patent Post pain: Adequate analgesia Nausea / Vomiting: Absent Post-operative Hydration Status: Adequate Post assessment: no apparent anesthetic complications, tolerated procedure well, and no evidence ofrecall Last Vitals: Vitals: 07/08/25 1730 07/08/25 1745 07/08/25 1815 07/08/25 1931 BP: 154/83 (!) 136/97 151/81 150/85 BP Location: Right upper arm Left upper arm Patient Position: Lying Lying BP Cuff Size: Pulse: 77 86 Resp: 18 18 17 17 Temp: 98.1 ??F (36.7 ??C) 97.7 ??F (36.5 ??C) TempSrc: Oral Oral SpO2: 97% 95% 99% 99% Weight: Height: Last Temperature: 97.7 ??F (36.5 ??C) (07/08/2025 7:31 PM) Post vital signs: stable Level of consciousness: awake Complications: There were no known notable events for this encounter. documented in this encounter H&P Notes * Rusty Collier MD - 07/08/2025 4:21 PM EST [facility] DEPARTMENT OF ANESTHESIOLOGY PRE-PROCEDURAL EVALUATION Gladys Grajeda is a 79 y.o. year old female presenting for: Procedure(s): SIGMOID FLEXIBLE Surgeon: Vik Le MD Chief Complaint SBO (small bowel obstruction) (CMS-HCC); HIGH GRADE BOWEL OBSTRUCTION Review of Systems Anesthesia Evaluation Patient summary reviewed. No history of anesthetic complications Cardiovascular: (+) hyperlipidemia. Hypertension is. (-) past [place], CAD, CABG/stent, CHF, orthopnea. ROS comment: TTE 10/14/2023: Left Ventricle: Based on the linear dimension and/or 2D volumes, the left ventricle is small in size. There is normal left ventricular myocardial thickness and mass. No left ventricular mass or thrombus is seen. The left ventricular systolic function is normal. The LVEF is visually estimated at 65 - 70%. The left ventricular filling pressure is indeterminate. No regional wall motion abnormalities are seen. ?? Aortic Valve: There is no hemodynamically significant valvular aortic stenosis. The peak gradient is 12 mmHg. The mean gradient is 7 mmHg. ?? IVC/SVC: Based on the IVC size and respiratory variation, the estimated right atrial pressure is 3mmHg. ?? Pericardium: There is a small pericardial effusion. There is no echocardiographic evidence of cardiac tamponade. ?? There is no recent study available for direct [id number] comparison. Neuro/Muscoloskeletal/Psych: (+) back problem (L4-L5 decompression and fusion). (-) seizures, CVA. Pulmonary: (-) COPD, asthma, sleep apnea. GI/Hepatic/Renal: GERD is. (-) liver disease, renal disease. Endo/Other: (+) anemia and DVT (Eliquis). (-) diabetes mellitus, no bleeding disorder, no clotting disorder. Past Medical History Past Medical History: Diagnosis Date Hypercholesteremia Hypertension Past Surgical History Past Surgical History: Procedure Laterality Date BACK SURGERY Family History History reviewed. No pertinent family history. Social History Social History Socioeconomic History Marital status: Spouse [...] Other Topics Concern Not on file Social Drivers of Health Financial Resource Strain: Low Risk (02/04/2025) Received from [facility] Overall Financial Resource Strain (CARDIA) Difficulty of Paying Living Expenses: Not very hard Food Insecurity: No Food Insecurity (07/05/2025) Hunger Vital Sign Worried About Running Out of Food in the Last Year: Never true Ran Out of Food in the Last Year: Never true Transportation Needs: No Transportation Needs (07/05/2025) PRAPARE - Transportation Lack of Transportation (Medical): No Lack of Transportation (Non-Medical): No Physical Activity: Inactive (02/04/2025) Received from [facility] Exercise Vital Sign Days of Exercise per Week: 0 days Minutes of Exercise per Session: 0 min Stress: No Stress Concern Present (02/04/2025) Received from [facility] of Occupational Health - Occupational Stress Questionnaire Feeling of Stress : Not at all Social Connections: Not At Risk (02/04/2025) Received from [facility] Family and Community Support If for any reason you need help with day-to-day activities such as bathing, preparing meals, shopping, managing finances, etc., do you get the help you need?: I get all the help I need How often do you feel lonely or isolated from those around you?: Never Intimate Partner Violence: Not At Risk (07/08/2025) Humiliation, Afraid, Rape, and Kick questionnaire Fear of Current or Ex-Partner: No Emotionally Abused: No Physically Abused: No Sexually Abused: No Medications Allergies: Allergies[1] Home Meds: Home Medications Medication Sig Taking? Last Dose [...] (40 mg total) by mouth daily. Yes Inpatient Meds: Scheduled: apixaban 5 mg Oral BID atorvastatin 10 mg Oral Nightly (2100) gabapentin 300 mg Oral TID pantoprazole 40 mg Oral DAILY 0600 senna-docusate 1 tablet Oral BID simethicone 80 mg Oral PC/HS Continuous: PRN: acetaminophen, calcium carbonate, diphenhydrAMINE, hydrALAZINE, methocarbamoL, ondansetron Vital Signs Wt Readings from Last 3 Encounters: 07/08/25 170 lb (77.1 kg) Ht Readings from Last 3 Encounters: 07/08/25 5' 3 (1.6 m) Temp Readings from Last 3 Encounters: 07/08/25 98.3 ??F (36.8 ??C) (Oral) BP Readings from Last 3 Encounters: 07/08/25 139/88 Pulse Readings from Last 3 Encounters: 07/08/25 76 SpO2 Readings from Last 3 Encounters: 07/08/25 99% Physical Exam Airway: Mallampati: III Mouth Opening: >2 FB TM distance: > = 3 FB Neck ROM: full Dental: - No obvious cracked, loose, chipped, or missing teeth. Pulmonary: Breathing: unlabored Breath sounds clear to auscultation. Cardiovascular: - normal exam Rhythm: regular Rate: normal Neuro/Musculoskeletal/Psych: - normal neurological exam. Mental status: alert and oriented to person, place and time. Abdominal: Current OB Status: Other Findings: Laboratory Data Lab Results Component Value Date WBC 5.2 07/08/2025 HGB 9.8 (L) 07/08/2025 HCT 30.5 (L) 07/08/2025 MCV 75.4 (L) 07/08/2025 PLT 513 (H) 07/08/2025 No results found for: ABORH Lab Results Component Value Date GLUCOSE 109 (H) 07/08/2025 BUN 15 07/08/2025 CO2 20 (L) 07/08/2025 CREATININE 0.85 07/08/2025 K 3.8 07/08/2025 NA 137 07/08/2025 CL 103 07/08/2025 CALCIUM 9.7 07/08/2025 ALBUMIN 4.0 07/08/2025 No results found for: PTT , INR No results found for: PREGTESTUR , PREGSERUM , HCG , HCGQUANT Anesthesia Plan ASA 3 Female and current non-smoker Anesthesia Type: MAC. PONV Risk Factors: female, current non-smoker Induction: Intravenous induction. Anesthetic plan and risks discussed with patient. Plan, alternatives, and risks of anesthesia, including , have been explained to and discussed with the patient/legal guardian. By my assessment, the patient/legal guardian understands and agrees. Scenario presented in detail. Questions answered. Blood products not discussed. Plan discussed with WET PROCESS TECHNICIAN and attending. [1] No Known Drug Allergies or Adverse Reactions documented in this encounter Plan of Treatment Not on file documented as of this encounter Visit Diagnoses * Transfer of Care - Karissa Eng RN - 07/08/2025 5:13 PM EST Anesthesia Transfer of Care Note Patient: Gladys Grajead Procedure(s) Performed: Procedure(s): SIGMOID FLEXIBLE Patient location: Endoscopy PACU Anesthesia type: MAC Airway Device on Arrival to PACU/ICU: Room Air IV Access: Peripheral Monitors Recommended to be Used During PACU/ICU: Standard Monitors Outstanding Issues to Address: None Level of Consciousness: awake, alert , and oriented Post vital signs: Vitals: 07/08/25 1712 BP: 122/70 Pulse: 74 Resp: 15 Temp: 98.1 ??F SpO2: 100% Complications: No notable events documented. Date 07/07/25 1500 - 07/08/25 0659 07/08/25 0700 - 07/09/25 0659 Shift 9098-0614 8658-7989 24 Hour Total 1566-0187 5617-8928 5483-3211 24 Hour Total INTAKE P.O. 200 440 P.O. 200 440 I.V.(mL/kg) 200(2.6) 200(2.6) Volume (mL) (sodium chloride 0.9 % IV infusion) 200 200 Shift Total(mL/kg) 200(2.6) 440(5.7) 200(2.6) 200(2.6) OUTPUT Urine(mL/kg/hr) 400(0.6) 400(0.2) Urine 400 400 Urine Occurrence 3 x 4 x 3 x 3 x Stool Stool Occurrence 1 x 2 x 3 x 3 x Shift Total(mL/kg) 400(5.2) 400(5.2) Weight (kg) 77.1 77.1 77.1 77.1 77.1 77.1 77.1 documented in this encounter Administered Medications Inactive Administered Medications - up to 3 most recent administrations Medication Order MAR Action Action Date Dose Rate Site lidocaine (PF) 20 mg/mL (2 %) Soln Intravenous, PRN - One Step Medication Only, Starting on Mon07/08/25 at 1649, Anesthesia Intra-op Given 07/08/2025 4:49 PM EST 100 mg propofol 10 mg/ml (DIPRIVAN) injection Intravenous, PRN - One Step Medication Only, Starting on Mon07/08/25 at 1649, Anesthesia Intra-op Given 07/08/2025 4:52 PM EST 30 mg Given 07/08/2025 4:49 PM EST 30 mg propofol 10 mg/ml, 20mL vial (DIPRIVAN) INFUSION Intravenous, Continuous - One Step Medications Only, Starting on Mon07/08/25 at 1649, Anesthesia Intra-op Rate/Dose Change 07/08/2025 4:52 PM EST 80 mcg/kg/min 37.008 mL/hr New Bag 07/08/2025 4:49 PM EST 100 mcg/kg/min 46.26 mL/ hr sodium chloride 0.9 % IV infusion Intravenous, Continuous - One Step Medications Only, Starting on Mon07/08/25 at 1648, Anesthesia Intra-op New Bag 07/08/2025 4:48 PM EST documented in this encounter Care Teams Singing Telegram Performer Relationship Specialty Start Date End Date Placido Mercado MD [address] [place] [address] PCP - General 07/03/25 documented as of this encounter
--- NOTE | 2025-07-14 14:30 | XR_ITS ---
FINAL REPORT CLINICAL HISTORY: right shoulder fx COMPARISON: 06/16/2025 FINDINGS: RIGHT SHOULDER Two views were obtained. There is a significantly displaced humeral neck fracture with bony overlap and presumed anterior displacement. No callus formation is identified. There is new subluxation of the humeral head. IMPRESSION: No significant radiographic healing of proximal humeral fracture. Persistent deformity with new inferior subluxation. Reviewed, Interpreted and Dictated by Anurag Burks MD Transcribed by Evy Herrera Authenticated and [facility]
--- OUTSIDE RECORDS SUMMARY | 2025-07-14 14:32 | XMS_ITS | Encounter Summary ---
Author Organization [facility] Address [address] [place] [id number] Care Team Providers Care Carriage Dogger Name Role Phone Placido Mercado MD Primary Care Provider [phone] Source Comments This information has been disclosed [...] release of HIV test results or diagnoses. [id number] Health Encounter Details Date Type Department Care Team (Latest Contact Info) Description 07/03/2025 Travel Social History Tobacco Use Types Packs/Day Years Used Date Smoking Tobacco: Never Smokeless Tobacco: Never Alcohol Use Standard Drinks/Week Comments Not Currently 0 (1 standard drink = 0.6 oz pur e alcohol) Comments No Sex and Gender Information Value Date Recorded Sex Assigned at Not on file Legal Sex Female 10:34 PM EDT Gender Identity Not on file Sexual Orientation Not on file documented as of this encounter Plan of Treatment Not on file documented as of this encounter Visit Diagnoses Not on filedocumented in this encounter Care Teams Carriage Dogger Relationship Specialty Start Date End Date Placido Mercado MD [address] [place] [address] [place] [address] PCP - General 07/03/25 documented as of this encounter
--- OUTSIDE RECORDS SUMMARY | 2025-07-14 14:32 | XMS_ITS | Clinical Summary ---
Author Organization [facility] Address [address] [place] [address] Care Team Providers Care Twisting Department End Finder Name Role Phone Placido Mercado MD Primary Care Provider [phone] Allergies No known active allergies Medications gabapentin [...] if needed for headaches. Active HYDROcodone-edith taminophen ([place]) 7.5-325 MG tablet 1 tablet (7.5 mg [...] place to sleep or slept in a [place] facility (including now)? No 10/16/2023 Utilities Answer Date [...] r (1 - 1-dose 75+ series) 11/08/2022 [id number] Vaccine ( - 2024- season) 2025 07/14/2021, 12/11/2020, 11/10/2020 [facility]-Influenza Vaccine (#1) 2025 [facility]-Hepatitis A Vaccines Aged Out 04/25/2019 No longer eligible based on patient's age to complete this topic [facility]-Obesity Intervention Completed 10/13/2023 [facility]-Hepatitis C Screening Completed 2023, 10/13/2023 Sigmoidoscopy Discontinued 10/18/2023 [facility]-Colorectal Cancer Screening Discontinued [facility]-Diabetes: Hemoglobin A1C Discontinued , 10/13/2023, 05/13/2022 CT Colonography Discontinued Colonoscopy Discontinued FIT-DNA Discontinued [...] medications. Staff Staff Role Kristine [facility] Echo Vascular Technologist Jade Vale, SPRING ASSEMBLER SUPERVISOR Sara Shepard, RN Endo Nurse Dipika Najera, ANN Endo Nurse Castillo Cartagena MD Anesthesiologist Melisa Santo, Proceduralist Tres Dao MD Proceduralist Preprocedure A [...] of bowel preparation was evaluated using the [place] Bowel Preparation Scale with scores of: left [...] Antigen Negative Negative 10/15/2023 6:39 AM EST [facility] Hepatitis C Antibody Negative Negative 10/15/2023 6:39 AM EST [facility] Hepatitis A Antibody IgM Negative Negative 10/15/2023 6:39 AM EST [facility] Hepatitis B Core Antibody IgM Negative Negative 10/15/2023 6:39 AM EST [facility] Blood Venous blood specimen / Unknown Venipuncture / Unknown 10/15/2023 12:57 AM EST 10/15/2023 1:14 AM EST us Patricia Barkley APRN, YADI LAB BLOOD ORDERABLES Liliya l Result Performing Organization Address City/[facility] Co de Phone Number [facility] [address] [place] [address] * (ABNORMAL) Hemoglobin A1c (10/13/2023 11:49 PM EST) Hemoglobin A1c 5.8(H) <5.7 % 10/14/2023 3:36 AM EST [facility] Blood Venous blood specimen / [...] Adults <6.0% Children and Adolescents <7.5% Source: [place] [employer]. Standards of medical care in diabetes,2017. Diabetes Care.2017:40 (suppl 1):S1-S135. HbA1c assay performed by an ion-exchange chromatography method that is certified traceable to the DCCT. us Hesham Whiteside MD LAB BLOOD ORDERABLES Final Re sult Performing Organization Address City/[facility]/ZIP Co de Phone Number [facility] [address] [place] [address] from Last 3 Months or Most Recently Relevant to Health Maintenance Insurance [facility] MEDICARE Advance Directives * Full Code (Latest Code Status on File) Date Activated Date Inactivated Comments 10/18/2023 4:44 PM 10/23/2023 5:27 PM Question Answer Comments Patient has decision-making capacity? Yes Care Teams Twisting Department End Finder Relationship Specialty Start Date End Date Placido Mercado MD [facility] [place] [address] PCP - General 10/16/23
--- OUTSIDE RECORDS SUMMARY | 2025-07-14 14:32 | XMS_ITS | Clinical Summary ---
Author Organization [facility] Address [address] [place] [address] Care Team Providers Care Claims Configuration Analyst Name Role Phone Placido Mercado MD Primary Care Provider [phone] Source Comments This information has been disclosed to you from confidential records protectedfrom disclosure by state law. You shall make no further disclosure of thisinformation without the specific, written, and informed release of theindividual to whom it pertains, or as otherwise permitted by law. A generalauthorization for the release of medical or other information is not sufficientfor the purposes of therelease of HIV test results or diagnoses. [id number] Allergies No known active allergies Medications alendronate (FOSAMAX) 70 MG tablet Take 1 tablet (70 mg total) by mouth every 7 days. Active apixaban (ELIQUIS) 5 mg Tab Take 1 tablet (5 mg total) by mouth 2 times a day. Active cyclobenzaprine (FLEXERIL) 5 MG tablet Take 1 tablet (5 mg total) by mouth 3 times a day as needed for Muscle spasms. Active gabapentin (NEURONTIN) 300 MG capsule Take 1 capsule (300 mg total) by mouth 3 times a day. Active lisinopriL-hydr ochlorothiazide (PRINZIDE) 20-12.5 mg per tablet Take 1 tablet by mouth daily. Active omeprazole (PRILOSEC) 40 MG capsule Take 1 capsule (40 mg total) by mouth 2 times a day. Active pravastatin (PRAVACHOL) 40 MG tablet Take 1 tablet (40 mg total) by mouth daily. Active acetaminophen (TYLENOL) 325 MG tablet Take 3 tablets (975 mg total) by mouth every 8 hours as needed for Pain. Active aluminum & magnesium hydroxide-simet hicone (MYLANTA MAXIMUM STRENGTH) 400-400-40 mg/5 mL suspension Take 15 mLs by mouth every 6 hours as needed. Active calcium carbonate (TUMS) 200 mg calcium (500 mg) chewable tablet Chew 1 tablet (500 mg total) by mouth 3 times a day as needed. Active QUEtiapine (SEROQUEL) 25 MG tablet Take 1 tablet (25 mg total) by mouth at bedtime. Active senna-docusate (SENNA-S) 8.6-50 mg per tablet Take 1 tablet by mouth daily as needed for Constipation . Active meloxicam (MOBIC) 15 MG tablet Take 1 tablet (15 mg total) by mouth daily. 07/10/20 Discontinu ed(Stop Taking at Discharge) oxyCODONE (ROXICODONE) 5 MG immediate release tablet Take 1 tablet (5 mg total) by mouth every 6 hours as needed for Pain. 07/10/20 Discontinu ed(Stop Taking at Discharge) Encounters Date Type Department Care Team Description 07/08/2025 4:48 PM EST Anesthesia Event [facility] ENDOSCOPY [address] [place] [address] Rusty Collier MD Wells, Lauren, ANN 07/08/2025 11:06 AM EST - 07/08/2025 11:37 AM EST Surgery [facility] ENDOSCOPY [address] [place] [address] Vik Le MD SIGMOID FLEXIBLE 07/03/2025 2:25 AM EDT - 07/10/2025 3:59 PM EST Hospital Encounter [facility] [address]CCP [address] [place] [address] Mehul Walsh MD Sams, Valerie, MD SBO (small bowel obstruction) (CMS-HCC) (Primary Dx); Polyp of sigmoid colon, unspecified type Discharge Disposition: Care Home Facility 07/03/2025 Travel from Last 3 Months Social History Tobacco Use Types Packs/Day Years Used Date Smoking Tobacco: Never Smokeless Tobacco: Never Tobacco Cessation:Counseling Given: Not Answered Alcohol Use Standard Drinks/Week Comments Not Currently 0 (1 standard drink = 0.6 oz pur e alcohol) [facility] Utilities Answer Date Recorded In [...] any time in the past 12 m [facility], were you homeless or living in a long-term (including now)? No 07/05/2025 Comments No Sex [...] Mass Index 30.11 07/08/2025 4:18 PM EST Plan of Treatment Health Maintenance Due Date Last Done Comments ASCVD Assessment 1945 Lipid Panel 1945 Depression Screening 11/08/1965 Immunization: DTaP/Tdap/Td ( 1 - Tdap) 11/08/1966 Immunization: Zoster (1 of 2) 11/08/1997 Osteoporosis Screening (DXA Scan) 11/08/1997 Immunization: Pneumococcal ( 2 of 2 - PCV) 02/18/2022 02/18/2021 Immunization: RSV (Adult) (1 - 1-dose 75+ series) 11/08/2022 Immunization: COVID-19 ( season) 2025 07/14/2021, 12/11/2020, 11/10/2020 Immunization: Influenza (MyC demarco) (#1) 2025 Diabetes Screening 07/03/2026 07/03/2025 Renal Function/GFR 07/10/2026 07/10/2025, 1 09/08/2024, 07/08/2025, Additional history exists Procedures Procedure Name Priority Date/Time Associated Diagnosis Comments EKG - SCAN 07/11/2025 7:50 AM EST RENAL FUNCTION PANEL W/EGFR STAT 07/10/2025 3:14 AM EST MAGNESIUM STAT 07/10/2025 3:14 AM EST CBC STAT 07/10/2025 3:14 AM EST RENAL FUNCTION PANEL W/EGFR STAT 07/09/2025 3:48 AM EST MAGNESIUM STAT 07/09/2025 3:48 AM EST CBC STAT 07/09/2025 3:48 AM EST SIGMOID FLEXIBLE Sigmoidoscopy 07/08/2025 4:46 PM EST SBO (small bowel obstruction) (CMS-HCC) FLEXIBLE SIGMOIDOSCOPY Routine 07/08/2025 4:42 PM EST HIGH SENSITIVITY TROPONIN STAT 07/08/2025 3:48 AM EST RENAL FUNCTION PANEL W/EGFR STAT 07/08/2025 3:22 AM EST MAGNESIUM STAT 07/08/2025 3:22 AM EST CBC STAT 07/08/2025 3:22 AM EST ECG 12-LEAD (MUSE) Routine 07/08/2025 3: 01 AM EST CEA Routine 07/07/2025 8:51 AM EST RENAL FUNCTION PANEL W/EGFR STAT 07/07/2025 3:44 AM EST MAGNESIUM STAT 07/07/2025 3:44 AM EST CBC STAT 07/07/2025 3:44 AM EST RENAL FUNCTION PANEL W/EGFR STAT 07/06/2025 3:02 AM EST MAGNESIUM STAT 07/06/2025 3:02 AM EST CBC STAT 07/06/2025 3:02 AM EST RENAL FUNCTION PANEL W/EGFR STAT 07/05/2025 9:38 AM EDT MAGNESIUM STAT 07/05/2025 9:38 AM EDT CBC STAT 07/05/2025 9:38 AM EDT T4 Routine 07/04/2025 6:57 PM EDT T3 Routine 07/04/2025 6:57 PM EDT TSH Routine 07/04/2025 6:[address] ABDOMEN AND PELVIS WITH IV CONTRAST Routine 07/04/2025 6:39 PM EDT XR PORTABLE ABDOMEN AP STAT 07/04/2025 9:15 AM EDT ANTI-XA LMW HEPARIN Timed 07/04/2025 4 :54 AM EDT RENAL FUNCTION PANEL W/EGFR STAT 07/04/2025 4:54 AM EDT MAGNESIUM STAT 07/04/2025 4:54 AM EDT CBC STAT 07/04/2025 4:54 AM EDT MAGNESIUM STAT 07/03/2025 10:18 PM EDT RENAL FUNCTION PANEL W/EGFR STAT 07/03/2025 10:18 PM EDT XR PORTABLE ABDOMEN AP STAT 07/03/2025 9:27 PM EDT C-REACTIVE PROTEIN Routine 07/03/2025 7: 49 AM EDT PHOSPHORUS STAT 07/03/2025 7:10 AM EDT MAGNESIUM STAT 07/03/2025 7:10 AM EDT HEMOGLOBIN A1C Routine 07/03/2025 7:10 AM EDT ANTI-XA LMW HEPARIN STAT 07/03/2025 7 :10 AM EDT LACTIC ACID, VENOUS BLOOD GAS STAT 07/03/2025 2:35 AM EDT DIFFERENTIAL STAT 07/03/2025 2:35 AM EDT CBC STAT 07/03/2025 2:35 AM EDT ED HCV AB REFLEX TO HCV QUANT Routine 07/03/2025 2:35 AM EDT BASIC METABOLIC PANEL STAT 07/03/2025 2:35 AM EDT from Last 3 Months Results * EKG - scan (07/11/2025 7:50 AM EST) us Scanning [facility] SCAN DOCS - NO RESULTS Final Res ult * (ABNORMAL) Renal Function Panel w/EGFR (07/10/2025 3:14 AM EST) Only the most recent of8 resultswithin the time period is included. Sodium 137 133 - 146 mmol/L 07/10/2025 4:25 AM EST [facility] Potassium 4.0 3.5 - 5.3 mmol/L 07/10/2025 4:25 AM EST [facility] Chloride 102 98 - 110 mmol/L 07/10/2025 4:25 AM EST [facility] CO2 23 21 - 33 mmol/L [...] - 16 mmol/L 07/10/2025 4:25 AM EST [facility] BUN 20 7 - 25 mg/dL 07/10/2025 4:25 AM EST [facility] Creatinine 0.82 0.60 - 1.30 mg/dL 07/10/2025 4:25 AM EST [facility] Glucose 118(H) 70 - 100 mg/dL 07/10/2025 4:25 AM EST [facility] Calcium 10.3 8.6 - 10.3 mg/dL 07/10/2025 4:25 AM EST [facility] Phosphorus 2.1 2.1 - 4.5 mg/dL 07/10/2025 4:25 AM EST [facility] Albumin 4.1 3.5 - 5.7 g/dL 07/10/2025 4:25 AM EST [facility] Osmolality, Calculated 288 278 - 305 mOsm/kg 07/10/2025 4:25 AM EST [facility] EGFR 74 07/10/2025 4:25 AM EST [facility] Comment:As of 2021, the estimated GFR [...] AM EST 07/10/2025 3:56 AM EST Brooklyn Palomino MD LAB BLOOD ORDERABLES Final Re sult [facility] [address] * (ABNORMAL) CBC (07/10/2025 3:14 AM EST) Only the most recent of8 resultswithin the time period is included. WBC 7.0 3.8 - 10.8 10E3/uL 07/10/2025 4:27 AM EST [facility] RBC 3.65(L) 3.80 - 5.10 10E6/uL 07/10/2025 4:27 AM EST [facility] Hemoglobin 9.0(L) 11.7 - 15.5 g/dL 07/10/2025 4:27 AM EST [facility] Hematocrit 27.8(L) 35.0 - 45.0 % 07/10/2025 4:27 AM EST [facility] MCV 76.2(L) 80.0 - 100.0 fL 07/10/2025 4:27 AM EST [facility] MCH 24.6(L) 27.0 - 33.0 pg 07/10/2025 4:27 AM EST [facility] MCHC 32.2 32.0 - 36.0 g/dL 07/10/2025 4:27 AM EST [facility] RDW 18.5(H) 11.0 - 15.0 % 07/10/2025 4:27 AM EST [facility] Platelets 439(H) 140 - 400 10E3/uL 07/10/2025 4:27 AM EST [facility] MPV 7.0(L) 7.5 - 11.5 fL 07/10/2025 4:27 AM EST [facility] Whole Blood 07/10/2025 3:14 AM EST 07/10/2025 3:56 AM EST us Brooklyn Palomino MD LAB BLOOD ORDERABLES Final Re sult Performing Organization Address City/[facility]/ZIP Co de Phone Number [facility] [address] * Magnesium (07/10/2025 3:14 AM EST) Only the most recent of9 resultswithin the time period is included. Magnesium 1.8 1.5 - 2.5 mg/dL 07/10/2025 4:25 AM EST [facility] Plasma 07/10/2025 3:14 AM EST 07/10/2025 3:56 AM EST us Brooklyn Palomino MD LAB BLOOD ORDERABLES Final Re sult Performing Organization Address City/[facility]/ZIP Co de Phone Number [facility] [address] * FLEXIBLE SIGMOIDOSCOPY (07/08/2025 4:42 PM EST) 07/08/2025 4:42 PM EST Narrative [facility] - 07/08/2025 6:24 PM EST [id number] Procedure Date: 07/08/2025 4:42 PM Patient Name: Gladys Grajeda Date of : 1945 Admit Type: Inpatient Age: 79 Gender: Female Note Status: Finalized Attending MD: Vik Le , , [id number] Procedure: Flexible Sigmoidoscopy Indications: Abnormal CT of [...] the physician, the nurse, the anesthesiologist, the leacher and the electrical mechanical technician in the pre-procedure area in the [...] on risk-benefit Procedure Code(s): --- Professional --- 73311, GC, Sigmoidoscopy, flexible; diagnostic, including collection of specimen(s) by brushing or washing, when performed (separate procedure) Diagnosis Code(s): --- Professional --- D12.5, Benign neoplasm of sigmoid colon R93.3, Abnormal findings on diagnostic imaging of other parts of digestive tract CPT copyright 2022 [employer]. All rights reserved. The codes documented in this report are preliminary and upon technical instructor course developer review may be revised to meet current compliance requirements. Attending Participation: I was present and participated during the entire procedure, including non-grajeda portions. Vik Le MD Vik Le, 07/08/2025 6:23:54 PM This report has been signed electronically.Vik Lloyd MD Juli Roth MD 07/08/2025 6:22:34 PM Total Procedure Duration Time 0 hours 9 minutes 36 seconds Scope In: 4:55:27 PM Scope Out: 5:05:[address] [place] [address], Formerly [facility] Attending Provider Unknown PROCEDURE/MINOR SURGI HANNA ORDERABLES Final Result Performing Organization Address [facility] de Phone Number [facility] * High Sensitivity Troponin (07/08/2025 3:48 AM EST) High Sensitivity Troponin 8 0 - 14 ng/L 07/08/2025 4:34 AM EST [facility] Serum 07/08/2025 3:48 AM EST 07/08/2025 4:07 AM EST Robin Ribeiro MD LAB BLOOD ORDERABLES Final Result Performing Organization Address [facility] Co de Phone Number [facility] [address] [place] [address] * ECG 12-lead (MUSE) (07/08/2025 3:01 AM EST) 07/08/2025 3:01 AM EST Narrative MUSE - 07/08/2025 11:39 AM EST Ventricular Rate: 106 BPM Atrial Rate: 106 BPM P-R Interval: 122 ms QRS Duration: 70 ms QT: 330 ms QTc: 438 ms P [place]: 85 degrees R [place]: 84 degrees T [place]: 137 degrees Diagnosis Line: SINUS TACHYCARDIA ^ NONSPECIFIC ST SEGMENT CHANGE ^ ABNORMAL ECG ^ No previous ECGs available ^ Confirmed by Kei HENDERSON MD ([id number]) on 07/08/2025 11:39:00 AM Robin Ribeiro MD ECG ORDERABLES Liliya l Result Performing Organization Address City/[facility] Co de Phone Number BENJY * (ABNORMAL) CEA (07/07/2025 8:51 AM EST) CEA 5.6(H) 0.0 - 3.0 ng/mL 07/07/2025 11:30 AM EST [facility] Serum 07/07/2025 8:51 AM EST 07/07/2025 9:13 AM EST Narrative [facility] - 07/07/2025 11:30 AM EST The testing method for CEA is a chemiluminescent immunoassay manufactured by [employer] Concentrations of CEA obtained by different assay methods or kits may vary and cannot be used interchangeably. CEA results cannot be interpreted as absolute evidence of the presence or absence of malignant disease. Roseline Daigle [facility] LAB BLOOD ORDERABLES Final Result Performing Organization Address City/[facility] Co de Phone Number [facility] [address] [place] [address], [facility] * T3, Total (07/04/2025 6:57 PM EDT) T3, Total 66.6 60.0 - 220.0 ng/dL 07/04/2025 8:38 PM EDT [facility] Comment:Biotin megadosing (c onsumption >300 mcg/day) may falsely elevate total T3. When indicated, discontinue megadosing for 1 week and repeat testing. Serum 07/04/2025 6:57 PM EDT 07/04/2025 7:48 PM EDT Steffanie Corcoran MD LAB BLOOD ORDERABLES Fin al Result Performing Organization Address City/[facility] Co de Phone Number [facility] [address] [facility]. [address] * TSH (Thyroid Stimulating Hormone) (07/04/2025 6:57 PM EDT) TSH 1.57 0.45 - 4.12 uIU/mL 07/04/2025 8:57 PM EDT [facility] Serum 07/04/2025 6:57 PM EDT 07/04/2025 7:48 PM EDT Steffanie Corcoran MD LAB BLOOD ORDERABLES Fin al Result Performing Organization Address [facility] Co de Phone Number [facility] [address] [facility]. [address] * T4 (Thyroxine) (07/04/2025 6:57 PM EDT) T4, Total 7.60 4.60 - 11.50 ug/dL 07/04/2025 8:28 PM EDT [facility] Serum 07/04/2025 6:57 PM EDT 07/04/2025 7:48 PM EDT Steffanie Corcoran MD LAB BLOOD ORDERABLES Fin al Result Performing Organization Address City/[facility] Co de Phone Number [facility] [address] [facility]. [address] * CT Abdomen and Pelvis With [...] Jimenes MD at 07/05/2025 7:56 AM EDT us Steffanie Corcoran MD IMG CT ORDERABLES Final Result * X-ray Portable Abdomen AP view (07/04/2025 9:15 AM EDT) Only the most recent of2 resultswithin the time period is included. Anatomical Region Laterality Modality Abdomen Radiographic Carmella [...] L4-L5 posterior spinal fusion. Procedure Note Collette Chaevz MD - 07/04/2025 EXAM: XR PORTABLE ABDOMEN [...] DIAGNOSTIC IMAGING O RDERABLES Final Result * Anti-Xa LMW Heparin (07/04/2025 4:54 AM EDT) Only the most recent of2 resultswithin the time period is included. Anti-Xa LMW Heparin 0.57 0.50 - 1.10 units/mL 07/04/2025 5:35 AM EDT [facility] Plasma 07/04/2025 4:54 AM EDT 07/04/2025 5:05 AM EDT Brooklyn Palomino MD LAB BLOOD ORDERABLES Final Re sult Performing Organization Address [facility]/ZIP Co de Phone Number [facility] [address] [place] [address]. [address] * C-Reactive Protein (07/03/2025 7:49 AM EDT) CRP 3.0 1.0 - 10.0 mg/L 07/03/2025 8:14 AM EDT [facility] Plasma 07/03/2025 7:49 AM EDT 07/03/2025 7:53 AM EDT Steffanie Corcoran MD LAB BLOOD ORDERABLES Fin al Result Performing Organization Address City/[facility]/ZIP Co de Phone Number [facility] [address] [place] [address]. [address] * Phosphorus, STAT (07/03/2025 7:10 AM EDT) Phosphorus 3.6 2.1 - 4.5 mg/dL 07/03/2025 7:54 AM EDT [facility] Plasma 07/03/2025 7:10 AM EDT 07/03/2025 7:20 AM EDT us Brooklyn Palomino MD LAB BLOOD ORDERABLES Final Re sult Performing Organization Address [facility] Co de Phone Number [facility] [address] * Hemoglobin A1C (07/03/2025 7:10 AM EDT) Hemoglobin A1C 5.2 4.0 - 5.6 % 07/04/2025 1:23 AM EDT [facility] Comment: Hemoglobin A1c Interpretation Guidelines: Normal: [...] AM EDT 07/03/2025 7:20 AM EDT Brooklyn Palomino MD LAB BLOOD ORDERABLES Final Re sult Performing Organization Address [facility] de Phone Number [facility] [address] [facility]. [address] * ED HCV Ab Reflex To HCV Quant (07/03/2025 2:35 AM EDT) HCV Ab Nonreactive Nonreactive 07/03/2025 4:12 AM EDT [facility] Comment:Health Department no tified in accordance with reportable infectious disease guidelines. HCVAB Number 0.02 0.00 - 0.79 S/CO 07/03/2025 4:12 AM EDT [facility] Serum 07/03/2025 2:35 AM EDT 07/03/2025 2:46 AM EDT Monie Mercado MD LAB BLOOD ORDERABLES Final Resul t Performing Organization Address City/[facility]/ZIP Co de Phone Number [facility] [address] * Lactic acid, venous, whole blood (07/03/2025 2:35 AM EDT) Lactate, Danny 0.9 0.5 - 1.6 mmol/L 07/03/2025 2:44 AM EDT [facility] Blood, Venous 07/03/2025 2:3 5 AM EDT 07/03/2025 2:41 AM EDT us Monie Mercado MD LAB BLOOD ORDERABLES Final Resul t [facility] [address] * Differential (07/03/2025 2:35 AM EDT) Pathologist [facility] Neutrophils Relative 72.2 40.0 - 80.0 % 07/03/2025 2:51 AM EDT [facility] Lymphocytes Relative 18.3 15.0 - 45.0 % 07/03/2025 2:51 AM EDT [facility] Monocytes Relative 7.2 0.0 - 12.0 % 07/03/2025 2:51 AM EDT [facility] Eosinophils Relative 1.8 0.0 - 8.0 % 07/03/2025 2:51 AM EDT [facility] Basophils Relative 0.5 0.0 - 1.0 % 07/03/2025 2:51 AM EDT [facility] nRBC 0 0 - 0 /100 WBC 07/03/2025 2:51 AM EDT [facility] Neutrophils Absolute 5,126 1,520 - 8,640 /uL 07/03/2025 2:51 AM EDT [facility] Lymphocytes Absolute 1,299 570 - 4,860 /uL 07/03/2025 2:51 AM EDT [facility] Monocytes Absolute 511 0 - 1,296 /uL 07/03/2025 2:51 AM EDT [facility] Eosinophils Absolute 128 0 - 864 /uL 07/03/2025 2:51 AM EDT [facility] Basophils Absolute 36 0 - 108 /uL 07/03/2025 2:51 AM EDT [facility] Whole Blood 07/03/2025 2:35 AM EDT 07/03/2025 2:46 AM EDT Monie Mercado MD LAB BLOOD ORDERABLES Final Resul t [facility] [address] [place] [address], [facility] * (ABNORMAL) Basic metabolic panel (07/03/2025 2:35 AM EDT) Sodium 131(L) 133 - 146 mmol/L 07/03/2025 3:06 AM EDT [facility] Potassium 3.4(L) 3.5 - 5.3 mmol/L 07/03/2025 3:06 AM EDT [facility] Chloride 97(L) 98 - 110 mmol/L 07/03/2025 3:06 AM EDT [facility] CO2 25 21 - 33 mmol/L 07/03/2025 3:06 AM EDT [facility] Comment:High lactate dehydro genase concentrations in patient samples may cause falsely increased bicarbonate results. If markedly elevated LDH is observed or suspected, please assess results in conjunction with patient`s clinical presentation. In cases of discrepant results, consider evaluating CO2 in with a blood gas order. Anion Gap 9 3 - 16 mmol/L 07/03/2025 3:06 AM EDT [facility] BUN 21 7 - 25 mg/dL 07/03/2025 3:06 AM EDT [facility] Creatinine 0.88 0.60 - 1.30 mg/dL 07/03/2025 3:06 AM EDT [facility] Glucose 110(H) 70 - 100 mg/dL 07/03/2025 3:06 AM EDT [facility] Calcium 9.4 8.6 - 10.3 mg/dL 07/03/2025 3:06 AM EDT [facility] Osmolality, Calculated 276(L) 278 - 305 mOsm/kg 07/03/2025 3:06 AM EDT [facility] EGFR 68 07/03/2025 3:06 AM EDT [facility] Comment:As of 2021, the estimated GFR [...] AM EDT 07/03/2025 2:41 AM EDT us Monie Mercado MD LAB BLOOD ORDERABLES Final Resul t [facility] [address] from Last 3 Months Insurance [employer] Advance Directives For more information, please contact: [phone] * Full Code (Latest Code Status on File) Date Activated Date Inactivated Comments 07/03/2025 6:14 AM 07/10/2025 8:04 PM Care Teams Claims Configuration Analyst Relationship Specialty Start Date End Date Placido Mercado [place] [address] PCP - General 07/03/25
--- OUTSIDE RECORDS SUMMARY | 2025-07-14 14:33 | XMS_ITS | Encounter Summary ---
Author Organization Healthcare Address [address] [place] [address] Care Team Providers Care Channel Cementer Name Role Phone Placido Mercado MD Primary Care Provider [phone] Encounter Details Date Type Department Care Team (Late st Contact Info) Description 10/16/2023 Lab Requisition [facility] [address] [place] [address] Jonas Tony MD [address] [facility] [address] [place] [address] Encounter for general adult medical [...] place to sleep or slept in a longterm (including now)? No 10/16/2023 Utilities Answer Date [...] ERAL ORDERABLES Final Result Performing Organization Address City/State/[facility] Co de Phone Number [facility] [address] [place] [address] documented in this encounter Visit Diagnoses Diagnosis Encounter for general adult medical examination without abnormal findings documented in this encounter Additional Health Concerns Assessment Noted Time A Body Mass Index follow-up plan has been documented for the patient 10/23/2023 2:41 PM EST documented as of this encounter Care Teams Channel Cementer Relationship Specialty Start Date End Date Placido Mercado MD [address] [place] [address] PCP - General 10/16/23 documented as of this encounter
--- OUTSIDE RECORDS SUMMARY | 2025-07-14 14:33 | XMS_ITS | Clinical Summary ---
Author Organization [facility] Address [address] [place] [address] Care Team Providers Care Compound Coating Machine Offbearer Name Role Phone Placido Mercado MD Primary Care Provider [phone] Allergies No known active allergies Medications lisinopril-hydr [...] 1 capsule by mouth Daily. Active Coenzyme Z40-Ntvctmf E (QUNOL ULTRA COQ10 PO) Take 100 [...] = 0.6 oz pur e alcohol) [facility] Utilities Answer Date Recorded In the [...] care, and heating? Not very hard 02/04/2025 [facility] - Occupational Stress [...] GED or equivalent No 02/04/2025 Preferred Language Slovenian 02/04/2025 PHQ-2 Answer Date Recorded Patient Health [...] TEST Discontinued FIT Testing (1 year) Discontinued Medical Devices Implanted Type Area Boiler Coverer Device Identifier Shelf Expiration Date Model / Serial / Lot Hemost Abs Surgifoam Sz100 8x12 10mm - [id number] Implanted:Qt y: 1 on 05/16/2022 by Vini Peterson MD at [facility] Implant N/A: Spine Lumbar [employer] J AND J 1974 / / Kt Seal Hemos Abs Floseal Matrx Fast/Prep 10ml - [id number] Implanted:Qt y: 1 on 05/16/2022 by Vini Peterson MD at [facility] Implant N/A: Spine Lumbar [facility] [id number] 02/06/2024 [id number] / / [id number] [facility] Bone Vivigen Celluar Matrx Formable 5cc - [id number] Implanted:Qt y: 1 on 05/16/2022 by Vini Peterson MD at [facility] Implant N/A: Spine Lumbar [facility] 03/14/2023 [id number] / / Vernon Cottrell Peek [id number] - [id number] Implanted:Qt y: 1 on 05/16/2022 by Vini Peterson MD at [facility] Implant N/A: Spine Lumbar DE[employer] [id number] / / Scrw [address] - [id number] Implanted:Qt y: 4 on 05/16/2022 by Vini Peterson MD at [facility] Implant N/A: Spine Lumbar DE[employer]INE [id number] / / Enrike Prebnt Spine Expedium Ti 5.5x40mm - [id number] Implanted:Qt y: 2 on 05/16/2022 by Vini Peterson MD at [facility] Implant N/A: Spine Lumbar DE[employer] SPINE [id number] / / Scrw Expedium Pa Ti 6x50mm - [id number] Implanted:Qt y: 2 on 05/16/2022 by Vini Peterson MD at [facility] Implant N/A: Spine Lumbar DEPU[employer] SPINE [id number] / / Scrw Expedium Pa Ti 6x45mm - [id number] Implanted:Qt y: 2 on 05/16/2022 by Vini Peterson MD at [facility] Implant N/A: Spine Lumbar DE[employer]INE [id number] / / Hemost Abs Surgifoam Sz100 8x12 10mm - [id number] Implanted:Qt y: 2 on 02/03/2025 by Vini Peterson MD at [facility] Implant N/A: Spine Lumbar [employer] J [employer] J [id number] 08/05/2028 1972 / / [id number] Description:Given to the bret arellano Wax Bone Hemo Lukens Sharpoint 2.5gm Wht - [id number] Implanted:Qt y: 1 on 02/03/2025 by Vini Peterson MD at [facility] Implant N/A: Spine Lumbar [employer] JAIDA [id number] 02/06/2029 [id number] / / [id number] Description:Given to the bret arellano Allogrft Bone Vivigen Celluar Matrx Formable [facility] - [id number] - [id number] Implanted:Qt y: 1 on 02/03/2025 by Vini Peterson MD at [facility] Implant N/A: Spine Lumbar [facility] [id number] 01/10/2026 [id number] / [id number] / Scrw Gurvinder Viper Fen Pa Ti 7x50mm - [id number] Implanted:Qt y: 2 on 02/03/2025 by Vini Peterson MD at [facility] Implant N/A: Spine Lumbar [employer] [id number] / / Scrw Gurvinder Viper Fen Pa Ti 7x45mm - [id number] Implanted:Qt y: 2 on 02/03/2025 by Vini Peterson MD at [facility] Implant N/A: Spine Lumbar [employer] [id number] / / Enrike Prebnt Spine Expedium Ti 5.5x40mm - [id number] Implanted:Qt y: 2 on 02/03/2025 by Vini Peterson MD at [facility] Implant N/A: Spine Lumbar [employer] [id number] / / Scrw Vi[address] - [id number] Implanted:Qt y: 4 on 02/03/2025 by Vini Peterson MD at [facility] Implant N/A: Spine Lumbar DE[employer]INE [id number] / / Cmt Bone Confidence/P ls Ds Kt 11cc - [id number] Implanted:Qt y: 1 on 02/03/2025 by Vini Peterson MD at [facility] Implant N/A: Spine Lumbar [employer] [id number] / / Kt Seal Hemos Abs Floseal Matrx Fast/Prep 10ml - [id number] Implanted:Qt y: 1 on 02/03/2025 by Vini Peterson MD at [facility] Implant N/A: Spine Lumbar [facility] [id number] 07/30/2026 [id number] / / [id number] Description:Given to the [facility] Datical Insurance [facility] MEDICARE ADVANTAGE HUMAN MEDICARE ADVANTAGE PPO Advance Directives Documents on File Type Date Recorded Patient 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
== END 2025-07-14 23:59 | disposition home or self-care (01) ==
LOC: RAD 14:30
PROVIDERS: PCP Family Medicine; Visit Provider Physician Assistant
DX: S42.201D Unspecified fracture of upper end of right humerus, subsequent encounter for fracture with routine healing (principal); X58.XXXD Exposure to other specified factors, subsequent encounter
CPT/HCPCS: 73030

== ENCOUNTER 2025-08-11 13:24 | Outpatient (CLI) | payer MEDICARE, SELFPAY ==
--- NOTE | 2025-08-11 13:25 | XR_ITS ---
PROCEDURE INFORMATION: Exam: XR Right Shoulder Exam date and time: 08/11/2025 1:31 PM Age: 79 years old Clinical indication: Pain; Shoulder; Right; Additional info: Right shoulder FX TECHNIQUE: Imaging protocol: Radiologic exam of the right shoulder. Views: 2 or more views. Total images: 2 COMPARISON: CR XR SHOULDER RT MIN 2V 07/14/2025 2:44 PM FINDINGS: Bones/joints: Fracture of the proximal humerus with impaction of the fracture fragments and slight medial angulation. Inferior subluxation of the humeral head noted. Callus formation is noted. Soft tissues: Normal. IMPRESSION: 1. Fracture of the proximal humerus with impaction of the fracture fragments and slight medial angulation. 2. Inferior subluxation of the humeral head noted. 3. Callus formation is noted.
== END 2025-08-11 23:59 ==
LOC: RAD 13:25
PROVIDERS: PCP Family Medicine; Visit Provider Physician Assistant Surgical
DX: S43.031D Inferior subluxation of right humerus, subsequent encounter; X58.XXXD Exposure to other specified factors, subsequent encounter; S42.291D Other displaced fracture of upper end of right humerus, subsequent encounter for fracture with routine healing
CPT/HCPCS: 73030